=== PATIENT | male | born 1950 | race Caucasian/White ===

== ENCOUNTER 2016-11-23 10:57 | Emergency (ER) | payer MEDICARE, OTHER ==
[~2016-11-23] VITALS: Ht 167.6 cm; Wt 70.0 kg
[~2016-11-23 10:57] MED LIST: ASPI-664 PO; BUSP10TA2 PO; CYAN100080 PO; DIAZ10TA4 PO; DULO60CA6 PO; FERR325T82 PO; FOLI-49 PO; HYDR-3504 PO; MULT-761 PO; PREG50CA PO; PROC5TAB9 PO; PROCHLORPERAZINE PO; RANI150C11 PO; ROPI0.25 PO; SIMV20TA2 PO; TRAZ100T15 PO
[2016-11-23 11:00] VITALS: Ht 167.6 cm; Wt 70.0 kg
[2016-11-23] MEDS ORDERED: LORAZEPAM 1 MG TAB PO ONE (11:30)
[2016-11-23] MEDS ORDERED: OLANZAPINE (ODT) 5 MG TAB ODT ONE (12:00)
[2016-11-23 12:20] VITALS: BP 160/78; PULSE 66; RESP 18
--- NOTE | 2016-11-23 12:44 | ERD ---
ER Documentation Chief Complaint Date/Time DATE: 11/23/16 TIME: 12:42 Chief Complaint sent from facility for anxiety HPI Patient is a 66-year-old male with anxiety who presents with anxiety. He was brought in by ambulance. He says "uptight is a drama" and says that he is having a "panic attack". He also says "I am having anxiety". He says "just give me a shot". Upon review of old medical records the patient has multiple visits to the ER for various complaints. Review of the emergency department information exchange shows visits to 2 separate hospitals. ROS All systems reviewed and are negative except as per history of present illness. Medications Home Meds Reported Medications Prochlorperazine* (Prochlorperazine*) 5 Mg Tablet, 5 MG PO BID, TAB 06/20/16 Hydrocodone Bit-Acetaminophen (Hydrocodone-APAP) 10-325MG Tablet, 1 TAB PO DAILY 10/15/15 Diazepam* (Diazepam*) 10 Mg Tablet, 10 MG PO BID, TAB 10/15/15 Trazodone Hcl* (Trazodone Hcl*) 100 Mg Tablet, 100 MG PO HS 02/15/13 Simvastatin (Simvastatin) 20 Mg Tablet, 20 MG PO HS 02/15/13 Ropinirole Hcl* (Ropinirole Hcl*) 0.25 Mg Tablet, 0.25 MG PO 02/15/13 Ranitidine Hcl (Ranitidine Hcl) 150 Mg Capsule, 150 MG PO DAILY 02/15/13 [Prochlorperazine] No Conflict Check, 5 MG PO TID 02/15/13 Pregabalin* (Lyrica*) 50 Mg Capsule, 50 MG PO BID 02/15/13 Multivitamin (MULTI VITAMIN DAILY) 1 Each Tablet, 1 EACH PO DAILY 02/15/13 Folic Acid* (Folic Acid*) 1 Mg Tablet, 1 MG PO 02/15/13 Ferrous Sulfate (LATONIA-TIME) 325 Mg Tablet, 325 MG PO DAILY 02/15/13 Duloxetine Hcl* (Cymbalta*) 60 Mg Capsule.dr, 60 MG PO DAILY 02/15/13 Cyanocobalamin* (Vitamin B-12*) 1,000 Mcg Tablet.sa, 1000 MCG PO DAY 02/15/13 Buspirone Hcl* (Buspirone Hcl*) 10 Mg Tablet, 10 MG PO TID 02/15/13 Aspirin (Aspirin) 81 Mg Tablet.dr, 81 MG PO DAILY 02/15/13 Allergies Allergies: Coded Allergies: No Known Allergies (Verified Allergy, Unknown, 06/17/16) PMhx/Soc History of Surgery: Yes (spine fusion) Anesthesia Reaction: No Hx Neurological Disorder: No Hx Respiratory Disorders: No Hx Cardiac Disorders: Yes (OR, HTN, Hypercholesterol) Hx Psychiatric Problems: Yes (schizophrenia, bipolar) Hx Miscellaneous Medical Probl: Yes (CAD, bipolar) Hx Alcohol Use: No Hx Substance Use: No Hx Tobacco Use: No Smoking Status: Former smoker FmHx Family History: No diabetes Physical Exam Vitals Vital Signs Date Time Temp Pulse Resp B/P Pulse Ox O2 Delivery O2 Flow Rate FiO2 11/23/16 12:20 66 18 160/78 98 Room Air 11/23/16 11:00 97.8 76 18 168/74 98 Physical Exam Const: Anxious Head: Atraumatic Eyes: Normal Conjunctiva ENT: Normal External Ears, Nose and Mouth. Neck: Full range of motion..~ No meningismus. Resp: Clear to auscultation bilaterally Cardio: Regular rate and rhythm, no murmurs Abd: Soft, non tender, non distended. Normal bowel sounds Skin: No petechiae or rashes Back: No midline or flank tenderness Ext: No cyanosis, or edema Neur: Awake and alert Psych: Anxious but no suicidal or homicidal ideation Results 24 hrs Current Medications Medications (Trade) Dose Ordered Sig/Florencio Route PRN Reason Start Time Stop Time Status Last Admin Dose Admin Lorazepam (Ativan) 1 mg ONCE ONCE PO 11/23/16 11:30 11/23/16 11:31 DC 11/23/16 11:13 Olanzapine (Zyprexa Zydis) 5 mg ONCE ONCE ODT 11/23/16 12:00 11/23/16 12:01 DC 11/23/16 11:54 Procedures/MDM Patient is a 66-year-old male with anxiety who presents with anxiety. The patient was given Ativan and Zyprexa. He will be discharged back to his chronic nursing facility. At this point I believe outpatient management is appropriate. The patient can return sooner for any worsening symptoms. The patient understands the plan is okay for discharge at this time. I do not believe he requires further workup or admission to the hospital at this time. I do not believe he requires a 5150 hold for inpatient psychiatric care. Departure Diagnosis: Primary Impression: Anxiety Condition: Fair Patient Instructions: Panic Attack Referrals: SHAWN HILLIARD MD (PCP) Additional Instructions: Call your primary care doctor TOMORROW for an appointment during the next 1-2 days.See the doctor sooner or return here if your condition worsens before your appointment time. EMILIE DOVE MD November 23, 2016 12:44
== END 2016-11-23 12:25 | disposition home or self-care (01) ==
LOC: E/R 10:57
DX: F41.9 Anxiety disorder, unspecified (principal); I10 Essential (primary) hypertension; I25.10 Atherosclerotic heart disease of native coronary artery without angina pectoris; R40.2142 Coma scale, eyes open, spontaneous, at arrival to emergency department; R40.2252 Coma scale, best verbal response, oriented, at arrival to emergency department; R40.2362 Coma scale, best motor response, obeys commands, at arrival to emergency department; Z79.82 Long term (current) use of aspirin; Z87.891 Personal history of nicotine dependence
CPT/HCPCS: 99283

== ENCOUNTER 2016-11-30 11:38 | Emergency (ER) | payer MEDICARE ==
[~2016-11-30] VITALS: Ht 175.3 cm; Wt 80.0 kg
[2016-11-30 11:57] VITALS: Ht 175.3 cm; Wt 80.0 kg
[2016-11-30] MEDS ORDERED: clonAZEPAM 0.5 MG TAB PO ONE (12:00)
[2016-11-30 12:11] LABS: ADD SCAN DIFF NO
[2016-11-30 12:31] LABS: CHLORIDE 106 mmol/L (97-110); SODIUM 143 mmol/L (135-144)
[2016-11-30 12:32] LABS: POTASSIUM 4.9 mmol/L (3.5-5.1)
[2016-11-30 12:34] LABS: ALANINE AMINOTRANSFERASE 37 IU/L (13-69); ALBUMIN/GLOBULIN RATIO 0.81; ALKALINE PHOSPHATASE 87 IU/L (42-121); ANION GAP 20 (8-16); ASPARTATE AMINO TRANSFERASE 39 IU/L (15-46); BILIRUBIN,INDIRECT 0.5 mg/dl (0-1.1); BILIRUBIN,TOTAL 0.5 mg/dl (0.2-1.3); BLOOD UREA NITROGEN 33 mg/dl (7-20); CALCIUM 9.4 mg/dl (8.4-10.2); CARBON DIOXIDE 22 mmol/L (21-31); GLUCOSE 113 mg/dl (70-220); TOTAL PROTEIN 8.9 g/dl (6.1-8.1)
[2016-11-30 12:42] LABS: ACETAMINOPHEN < 10.0 ug/ml (10.0-30.0); ETHANOL < 10.0 mg/dl; SALICYLATE < 1.0 mg/dl (5.0-30.0)
[2016-11-30 13:13] LABS: BASOPHILS % 0.6 % (0.0-2.0); EOSINOPHILS # 0.1 10^3/ul (0.0-0.5); EOSINOPHILS % 2.6 % (0.0-7.0); HEMOGLOBIN 9.8 g/dl (14.0-18.0); LYMPHOCYTES # 0.6 10^3/ul (0.8-2.9); LYMPHOCYTES % 17.6 % (15.0-51.0); MEAN CORPUSCULAR HGB CONC 33.8 g/dl (32.0-37.0); MEAN CORPUSCULAR VOLUME 94.8 fl (82.0-101.0); MEAN PLATELET VOLUME 9.9 fl (7.4-10.4); MONOCYTE # 0.3 10^3/ul (0.3-0.9); MONOCYTES % 9.7 % (0.0-11.0); NEUTROPHIL # 2.4 10^3/ul (1.6-7.5); NEUTROPHILS % 69.2 % (39.0-77.0); PLATELET COUNT 108 10^3/UL (140-415); RED BLOOD COUNT 3.06 10^6/ul (4.70-6.10); RED CELL DISTRIBUTION WIDTH 14.4 % (11.5-14.5); WHITE BLOOD COUNT 3.4 10^3/ul (4.8-10.8)
--- NOTE | 2016-11-30 14:12 | ERA ---
ER Documentation Chief Complaint Date/Time DATE: 11/30/16 TIME: 14:09 Chief Complaint BIB RA FOR EVAL OF ANXIETY HPI Patient is a 66-year-old male with anxiety who presents with anxiety. He was brought in by ambulance. The nursing facility called because he was having anxious and says "I need Klonopin". I saw him personally on November 23 for the same complaint. He has severe anxiety. Upon review of old medical records the patient has multiple visits for similar type complaints. At this point it appears the nursing facility is unable to care for him. Please note the history and physical exam is limited as the patient is unable to talk about anything except his anxiety. ROS All systems reviewed and are negative except as per history of present illness. Medications Home Meds Reported Medications Prochlorperazine* (Prochlorperazine*) 5 Mg Tablet, 5 MG PO BID, TAB 06/20/16 Hydrocodone Bit-Acetaminophen (Hydrocodone-APAP) 10-325MG Tablet, 1 TAB PO DAILY 10/15/15 Diazepam* (Diazepam*) 10 Mg Tablet, 10 MG PO BID, TAB 10/15/15 Trazodone Hcl* (Trazodone Hcl*) 100 Mg Tablet, 100 MG PO HS 02/15/13 Simvastatin (Simvastatin) 20 Mg Tablet, 20 MG PO HS 02/15/13 Ropinirole Hcl* (Ropinirole Hcl*) 0.25 Mg Tablet, 0.25 MG PO 02/15/13 Ranitidine Hcl (Ranitidine Hcl) 150 Mg Capsule, 150 MG PO DAILY 02/15/13 [Prochlorperazine] No Conflict Check, 5 MG PO TID 02/15/13 Pregabalin* (Lyrica*) 50 Mg Capsule, 50 MG PO BID 02/15/13 Multivitamin (MULTI VITAMIN DAILY) 1 Each Tablet, 1 EACH PO DAILY 02/15/13 Folic Acid* (Folic Acid*) 1 Mg Tablet, 1 MG PO 02/15/13 Ferrous Sulfate (LATONIA-TIME) 325 Mg Tablet, 325 MG PO DAILY 02/15/13 Duloxetine Hcl* (Cymbalta*) 60 Mg Capsule.dr, 60 MG PO DAILY 02/15/13 Cyanocobalamin* (Vitamin B-12*) 1,000 Mcg Tablet.sa, 1000 MCG PO DAY 02/15/13 Buspirone Hcl* (Buspirone Hcl*) 10 Mg Tablet, 10 MG PO TID 02/15/13 Aspirin (Aspirin) 81 Mg Tablet.dr, 81 MG PO DAILY 02/15/13 Allergies Allergies: Coded Allergies: No Known Allergies (Verified Allergy, Unknown, 06/17/16) PMhx/Soc History of Surgery: Yes (spine fusion) Anesthesia Reaction: No Hx Neurological Disorder: No Hx Respiratory Disorders: No Hx Cardiac Disorders: Yes (ND, HTN, Hypercholesterol) Hx Psychiatric Problems: Yes (schizophrenia, bipolar) Hx Miscellaneous Medical Probl: Yes (CAD, bipolar) Hx Alcohol Use: No Hx Substance Use: No Hx Tobacco Use: No Smoking Status: Unknown if ever smoked FmHx Unable to obtain Physical Exam Vitals Vital Signs Date Time Temp Pulse Resp B/P Pulse Ox O2 Delivery O2 Flow Rate FiO2 11/30/16 11:57 97.9 80 19 160/59 100 Physical Exam Const: Anxious Head: Atraumatic Eyes: Normal Conjunctiva ENT: Normal External Ears, Nose and Mouth. Neck: Full range of motion..~ No meningismus. Resp: Clear to auscultation bilaterally Cardio: Regular rate and rhythm, no murmurs Abd: Soft, non tender, non distended. Normal bowel sounds Skin: Pale Back: No midline or flank tenderness Ext: No cyanosis, or edema Neur: Awake but extremely anxious Psych: Extreme anxiety without suicidal or homicidal ideation Result Diagram: 11/30/16 1300 11/30/16 1154 Results 24 hrs Laboratory Tests Test 11/30/16 11:54 11/30/16 13:00 Sodium Level 143mmol/L Potassium Level 4.9mmol/L Chloride Level 106mmol/L Carbon Dioxide Level 22mmol/L Anion Gap 20 Blood Urea Nitrogen 33mg/dl Creatinine 2.10mg/dl Glucose Level 113mg/dl Calcium Level 9.4mg/dl Total Bilirubin 0.5mg/dl Direct Bilirubin 0.00mg/dl Indirect Bilirubin 0.5mg/dl Aspartate Amino Transf (AST/SGOT) 39IU/L Alanine Aminotransferase (ALT/SGPT) 37IU/L Alkaline Phosphatase 87IU/L Total Protein 8.9g/dl Albumin 4.0g/dl Globulin 4.90g/dl Albumin/Globulin Ratio 0.81 Salicylates Level < 1.0mg/dl Acetaminophen Level < 10.0ug/ml Ethyl Alcohol Level < 10.0mg/dl White Blood Count 3.410^3/ul Red Blood Count 3.0610^6/ul Hemoglobin 9.8g/dl Hematocrit 29.0% Mean Corpuscular Volume 94.8fl Mean Corpuscular Hemoglobin 32.0pg Mean Corpuscular Hemoglobin Concent 33.8g/dl Red Cell Distribution Width 14.4% Platelet Count 69227^3/UL Mean Platelet Volume 9.9fl Neutrophils % 69.2% Lymphocytes % 17.6% Monocytes % 9.7% Eosinophils % 2.6% Basophils % 0.6% Nucleated Red Blood Cells % 0.0/100WBC Neutrophils # 2.410^3/ul Lymphocytes # 0.610^3/ul Monocytes # 0.310^3/ul Eosinophils # 0.110^3/ul Basophils # 0.010^3/ul Nucleated Red Blood Cells # 0.010^3/ul Current Medications Medications (Trade) Dose Ordered Sig/Florencio Route PRN Reason Start Time Stop Time Status Last Admin Dose Admin Clonazepam (Klonopin) 1 mg ONCE ONCE PO 11/30/16 12:00 11/30/16 12:01 DC 11/30/16 12:14 Procedures/MDM Patient is a 66-year-old male with anxiety who presents with anxiety. At this point I believe he has the grave disability. On the previous visit on November 23 I was able to discharge him back to the nursing facility but they are unable to care for him and I do believe he requires higher level of care for psychiatric treatment. He will likely need his medications adjusted. He was given Klonopin and Ativan in the emergency department. He has been accepted to [facility] for transfer for higher level of care psychiatric transfer. He is medically clear. Departure Diagnosis: Primary Impression: Grave disability Additional Impression: Anxiety Condition: EMILIE Eden MD November 30, 2016 14:12
[2016-11-30] MEDS ORDERED: LORAZEPAM 1 MG TAB PO ONE (14:30)
[2016-11-30 15:55] LABS: ADD UMIC NO; URINE BILIRUBIN (Dip) NEGATIVE (NEGATIVE); URINE BLOOD (Dip) NEGATIVE (NEGATIVE); URINE COLOR LT. YELLOW (YELLOW); URINE GLUCOSE (Dip) NEGATIVE (NEGATIVE); URINE KETONES (Dip) NEGATIVE (NEGATIVE); URINE LEUKOCYTE ESTERASE (Dip) NEGATIVE (NEGATIVE); URINE NITRITE (Dip) NEGATIVE (NEGATIVE); URINE TOTAL PROTEIN (Dip) NEGATIVE (NEGATIVE); URINE UROBILINOGEN (Dip) 0.2 E.U./dL (0.1-1.0)
[2016-11-30 16:18] LABS: BENZODIAZEPINES Negative (NEGATIVE)
[2016-11-30 16:20] LABS: BARBITURATES Negative (NEGATIVE); CANNABINOIDS Negative (NEGATIVE); COCAINE Negative (NEGATIVE); OPIATES Negative (NEGATIVE)
== END 2016-11-30 17:29 ==
LOC: E/R 11:38
DX: F79 Unspecified intellectual disabilities (principal); I25.10 Atherosclerotic heart disease of native coronary artery without angina pectoris; I10 Essential (primary) hypertension; R40.2142 Coma scale, eyes open, spontaneous, at arrival to emergency department; R40.2252 Coma scale, best verbal response, oriented, at arrival to emergency department; R40.2362 Coma scale, best motor response, obeys commands, at arrival to emergency department; Z79.82 Long term (current) use of aspirin
CPT/HCPCS: 36415; 80053; 80306; 80307; 81003; 85025

== ENCOUNTER 2017-01-17 16:00 | Inpatient (IN) | payer MEDICARE, MEDICAID ==
[~2017-01-17] VITALS: Ht 177.8 cm; Wt 69.0 kg
[~2017-01-17 16:00] MED LIST changes: -PROCHLORPERAZINE PO
[2017-01-17] MEDS ORDERED: CEFTRIAXONE 1 GM/50 ML (PMX) 50 ML IVPB STA (16:23)
[2017-01-17] MEDS ORDERED: SODIUM CHLORIDE 0.9% 1L BAG IV* STA (16:23)
[2017-01-17] MEDS ORDERED: VANCOMYCIN 1 GM (PMX) 250 ML IVPB ONE (16:30)
[2017-01-17] MEDS ORDERED: morphine 10 MG INJ IV ONE (16:30)
[2017-01-17 16:47] LABS: ADD SCAN DIFF NO
[2017-01-17 16:53] LABS: ABNORMAL IP MESSAGE 1; BASOPHILS % 0.2 % (0.0-2.0); EOSINOPHILS % 0.1 % (0.0-7.0); HEMATOCRIT 32.3 % (42.0-52.0); LYMPHOCYTES # 0.4 10^3/ul (0.8-2.9); LYMPHOCYTES % 3.1 % (15.0-51.0); MEAN CORPUSCULAR HEMOGLOBIN 32.3 pg (29.0-33.0); MEAN CORPUSCULAR HGB CONC 34.1 g/dl (32.0-37.0); MEAN CORPUSCULAR VOLUME 94.7 fl (82.0-101.0); MEAN PLATELET VOLUME 11.4 fl (7.4-10.4); MONOCYTE # 0.9 10^3/ul (0.3-0.9); MONOCYTES % 7.5 % (0.0-11.0); NEUTROPHIL # 10.9 10^3/ul (1.6-7.5); NEUTROPHILS % 88.6 % (39.0-77.0); PLATELET COUNT 255 10^3/UL (140-415); RED BLOOD COUNT 3.41 10^6/ul (4.70-6.10); RED CELL DISTRIBUTION WIDTH 14.6 % (11.5-14.5); WHITE BLOOD COUNT 12.3 10^3/ul (4.8-10.8)
--- NOTE | 2017-01-17 17:03 | ERA ---
ER Documentation Chief Complaint Date/Time DATE: 01/17/17 TIME: 16:48 Chief Complaint sent by pmd for cellulitis of the buttocks HPI This 66-year-old male presents for an infected wound on his buttock. He was sent from his primary care doctor for likely admission. He has significant pain at the site. States that he had a hip fracture sometime ago and since he is started to develop some rectal pain as well. He has felt chills at home and subjective fevers. It is very painful for him have bowel movements. He was sent from the office of Dr. Blaine Shin ROS All systems reviewed and are negative except as per history of present illness. Medications Home Meds Reported Medications Pregabalin* (Lyrica*) 50 Mg Capsule, 50 MG PO BID, CAP 01/17/17 Hydrocodone/Acetaminophen ([place] 10-325 Tablet) 1 Each Tablet, 1 EACH PO BID, TAB 01/17/17 Methadone Hcl* (Methadone*) 10 Mg Tab, 10 MG PO TID, TAB 01/17/17 Ropinirole Hcl* (Ropinirole Hcl*) 0.25 Mg Tablet, 0.25 MG PO HS, TAB 01/17/17 Tamsulosin Hcl* (Tamsulosin Hcl*) 0.4 Mg Cap.er.24h, 0.4 MG PO HS, CAP 01/17/17 Simvastatin* (Zocor*) 10 Mg Tablet, 10 MG PO QHS, #30 TAB 01/17/17 Multivitamins* (Theragran*) 1 Tab Tab, 1 TAB PO DAILY, TAB 01/17/17 Folic Acid* (Folic Acid*) 1 Mg Tablet, 1 MG PO DAILY, TAB 01/17/17 Ferrous Sulfate* (Ferrous Sulfate*) 325 Mg Tabec, 325 MG PO DAILY, TAB 01/17/17 Famotidine* (Famotidine*) 20 Mg Tablet, 20 MG PO DAILY, #30 TAB 01/17/17 Buspirone Hcl* (Buspirone Hcl*) 10 Mg Tab, 10 MG PO TID, TAB 01/17/17 Duloxetine Hcl* (Duloxetine Hcl*) 60 Mg Capsule.dr, 120 MG PO DAILY, #30 CAP 01/17/17 Clonazepam* (Clonazepam*) 1 Mg Tablet, 1 MG PO BID Y for ANXIETY, TAB 01/17/17 Aripiprazole* (Abilify*) 5 Mg Tab, 5 MG PO DAILY, #30 TAB 01/17/17 Aspirin* (Aspirin* EC) 81 Mg Tablet.dr, 81 MG PO DAILY, TAB 01/17/17 Acetaminophen* (Acetaminophen*) 650 Mg Tablet, 650 MG PO Q8H Y for FOR MILD PAIN ,FEVER ,HEDACHE, #30 TAB 01/17/17 Discontinued Reported Medications Prochlorperazine* (Prochlorperazine*) 5 Mg Tablet, 5 MG PO BID, TAB 06/20/16 Hydrocodone Bit-Acetaminophen (Hydrocodone-APAP) 10-325MG Tablet, 1 TAB PO DAILY 10/15/15 Diazepam* (Diazepam*) 10 Mg Tablet, 10 MG PO BID, TAB 10/15/15 Trazodone Hcl* (Trazodone Hcl*) 100 Mg Tablet, 100 MG PO HS 02/15/13 Simvastatin (Simvastatin) 20 Mg Tablet, 20 MG PO HS 02/15/13 Ropinirole Hcl* (Ropinirole Hcl*) 0.25 Mg Tablet, 0.25 MG PO 02/15/13 Ranitidine Hcl (Ranitidine Hcl) 150 Mg Capsule, 150 MG PO DAILY 02/15/13 Pregabalin* (Lyrica*) 50 Mg Capsule, 50 MG PO BID 02/15/13 Multivitamin (MULTI VITAMIN DAILY) 1 Each Tablet, 1 EACH PO DAILY 02/15/13 Folic Acid* (Folic Acid*) 1 Mg Tablet, 1 MG PO 02/15/13 Ferrous Sulfate (LATONIA-TIME) 325 Mg Tablet, 325 MG PO DAILY 02/15/13 Duloxetine Hcl* (Cymbalta*) 60 Mg Capsule.dr, 60 MG PO DAILY 02/15/13 Cyanocobalamin* (Vitamin B-12*) 1,000 Mcg Tablet.sa, 1000 MCG PO DAY 02/15/13 Buspirone Hcl* (Buspirone Hcl*) 10 Mg Tablet, 10 MG PO TID 02/15/13 Aspirin (Aspirin) 81 Mg Tablet.dr, 81 MG PO DAILY 02/15/13 Allergies Allergies: Coded Allergies: No Known Allergies (Verified Allergy, Unknown, 01/17/17) PMhx/Soc History of Surgery: Yes (spine fusion) Anesthesia Reaction: No Hx Neurological Disorder: No Hx Respiratory Disorders: No Hx Cardiac Disorders: Yes (IA, HTN, Hypercholesterol) Hx Psychiatric Problems: Yes (schizophrenia, bipolar) Hx Miscellaneous Medical Probl: Yes (CAD, bipolar) Hx Alcohol Use: No Hx Substance Use: No Hx Tobacco Use: No Physical Exam Vitals Vital Signs Date Time Temp Pulse Resp B/P Pulse Ox O2 Delivery O2 Flow Rate FiO2 01/17/17 19:05 97 25 121/50 100 Room Air 01/17/17 16:03 99.5 118 24 99 Physical Exam Const: [] Moderate distress, very uncomfortable, in pain Head: Atraumatic Eyes: Normal Conjunctiva ENT: Normal External Ears, Nose and Mouth. Neck: Full range of motion..~ No meningismus. Resp: Clear to auscultation bilaterally, slightly increased respiratory rate Cardio: Regular tachycardia, no murmurs Abd: Soft, non tender, non distended. Normal bowel sounds Skin: No petechiae or rashes Back: No midline or flank tenderness, buttock with stage II ulceration on both sides of buttocks surrounding the rectum, significant surrounding cellulitis with positive calor. No obvious abscess. Ext: No cyanosis, or edema Neur: Awake and alert and oriented 3, no focal deficits Psych: Normal Mood and Affect Result Diagram: 01/17/17 1630 01/17/17 1740 Results 24 hrs Laboratory Tests Test 01/17/17 16:30 01/17/17 17:40 01/17/17 18:00 01/17/17 19:50 White Blood Count 12.310^3/ul Red Blood Count 3.4110^6/ul Hemoglobin 11.0g/dl Hematocrit 32.3% Mean Corpuscular Volume 94.7fl Mean Corpuscular Hemoglobin 32.3pg Mean Corpuscular Hemoglobin Concent 34.1g/dl Red Cell Distribution Width 14.6% Platelet Count 53903^3/UL Mean Platelet Volume 11.4fl Neutrophils % 88.6% Lymphocytes % 3.1% Monocytes % 7.5% Eosinophils % 0.1% Basophils % 0.2% Nucleated Red Blood Cells % 0.0/100WBC Neutrophils # 10.910^3/ul Lymphocytes # 0.410^3/ul Monocytes # 0.910^3/ul Eosinophils # 0.010^3/ul Basophils # 0.010^3/ul Nucleated Red Blood Cells # 0.010^3/ul Prothrombin Time 16.1Sec Prothrombin Time Ratio 1.3 INR International Normalized Ratio 1.28 Activated Partial Thromboplast Time 42.3Sec Sodium Level 126mmol/L Potassium Level 3.4mmol/L Chloride Level 103mmol/L Carbon Dioxide Level 16mmol/L Anion Gap 10 Blood Urea Nitrogen 39mg/dl Creatinine 2.62mg/dl Glucose Level 103mg/dl Lactic Acid Level 1.4mmol/L 1.7mmol/L Calcium Level 7.6mg/dl Total Bilirubin 0.4mg/dl Direct Bilirubin 0.00mg/dl Indirect Bilirubin 0.4mg/dl Aspartate Amino Transf (AST/SGOT) 60IU/L Alanine Aminotransferase (ALT/SGPT) 43IU/L Alkaline Phosphatase 50IU/L Troponin I 0.020ng/ml Total Protein 5.9g/dl Albumin 3.0g/dl Globulin 2.90g/dl Albumin/Globulin Ratio 1.03 Urine Color YELLOW Urine Clarity SLIGHTLY CLOUDY Urine pH 6.0 Urine Specific [place] 1.004 Urine Ketones NEGATIVEmg/dL Urine Nitrite NEGATIVEmg/dL Urine Bilirubin NEGATIVEmg/dL Urine Urobilinogen NEGATIVEmg/dL Urine Leukocyte Esterase 2+Bladimir/ul Urine Microscopic RBC 2/HPF Urine Microscopic WBC 7/HPF Urine Bacteria FEW/HPF Urine Hemoglobin 2+mg/dL Urine Glucose NEGATIVEmg/dL Urine Total Protein NEGATIVEmg/dl Current Medications Medications (Trade) Dose Ordered Sig/Florencio Route PRN Reason Start Time Stop Time Status Last Admin Dose Admin Sodium Chloride 2110 ml 2,110 ml BOLUS OVER 2 HOURS STAT IV* 01/17/17 16:23 01/17/17 16:27 DC 01/17/17 17:04 Vancomycin HCl 250 ml @ 125 mls/hr ONCE ONCE IVPB 01/17/17 16:30 01/17/17 18:29 DC 01/17/17 17:59 Ceftriaxone Sodium (Rocephin) 50 ml @ 100 mls/hr ONCE STAT IVPB 01/17/17 16:23 01/17/17 16:52 DC 01/17/17 17:04 Morphine Sulfate (morphine) 6 mg ONCE ONCE IV 01/17/17 16:30 01/17/17 16:32 DC 01/17/17 17:03 Hydromorphone HCl (Dilaudid) 1 mg ONCE STAT IV 01/17/17 17:43 01/17/17 17:45 DC 01/17/17 18:00 Ondansetron HCl (Zofran Inj) 4 mg ER BRIDGE PRN IV NAUSEA AND/OR VOMITING 01/17/17 21:30 01/18/17 21:29 Acetaminophen (Tylenol Tab) 650 mg ER BRIDGE PRN PO MILD PAIN/FEVER 01/17/17 21:30 01/18/17 21:29 Procedures/MDM Bilateral buttock infection surrounding the rectum with sepsis. Patient was in significant pain on arrival. He was given 6 mg of morphine and 1 mg of Dilaudid to control his pain. Is also given 30 cc/kg of IV fluid as well as vancomycin and cefepime. He was made much more comfortable. Full. Initially tachycardic his heart rate did decrease with IV fluids. Also has tachypneic with clear chest x-ray. Creatinine is higher than last time with likely acute kidney injury. This is likely secondary to his cellulitis. Spoke with Dr. Shin who is not feeling well and prefers that the patient be admitted to panel. I spoke with Dr. Michael will be admitting the patient to telemetry. EKG interpretation: Normal sinus rhythm rate of 95, normal axis, no ST or T- wave changes concerning for acute ischemia, QTC of 469. Single Q-wave in V4 case monitor interpretation: Sinus tachycardia followed by normal sinus rhythm without arrhythmia Chest x-ray interpretation: I see no acute process. I see no vitamin Carrera, no pneumothorax, no infiltrates, no fractures Pelvis CT interpretation: Ulcerations with infection continuing the subcutaneous tissue without abscess or osteomyelitis. Multilevel degenerative disc disease with prior spinal surgery. Critical care time 37 minutes: Includes management of sepsis and patient with severe pain, careful fluid administration, early antibiotic administration, multiple visits the patient's bedside to reassess his status, chart review, discussion with primary care physician, patient, admitting doctor. This does not include any billable procedures Departure Diagnosis: Primary Impression: Sepsis due to cellulitis Additional Impressions: Cellulitis of buttock Stage II decubitus ulcer Acute kidney injury UTI (urinary tract infection) Hyponatremia Condition: Serious YARI PRICE DO Jan 17, 2017 16:59
[2017-01-17] MEDS ORDERED: HYDROmorphONE 1 MG/ML SYG IV STA (17:43)
--- NOTE | 2017-01-17 17:47 | RADRPT ---
PROCEDURE: Chest x-ray CLINICAL INDICATION: Cellulitis TECHNIQUE: Chest single view COMPARISON: 06/17/2016 FINDINGS: The heart is normal in size. The pulmonary vessels are normal in caliber. The lungs are clear. Th e costophrenic angles are sharp. The visualized bony thorax is unremarkable. IMPRESSION: No acute cardiopulmonary disease. Interval clearing of previously noted right lower lobe pneumonia RPTAT: HH .Eric Campos MD, MD Date Time Electronically viewed and signed by .Eric Campos MD, on 01/17/2017 17:46 .W/
[2017-01-17] MEDS ORDERED: ASPI-664 PO (17:56)
[2017-01-17] MEDS ORDERED: ACET-2047 PO (17:56)
[2017-01-17] MEDS ORDERED: CLON1TAB3 PO (17:57)
[2017-01-17] MEDS ORDERED: ARIP5TAB7 PO (17:57)
[2017-01-17] MEDS ORDERED: DULO60CA59 PO (17:58)
[2017-01-17] MEDS ORDERED: FAMO20TA18 PO (17:59)
[2017-01-17] MEDS ORDERED: BUSP10TA2 PO (17:59)
[2017-01-17] MEDS ORDERED: FER325 PO (18:00)
[2017-01-17] MEDS ORDERED: MULTI PO (18:00)
[2017-01-17] MEDS ORDERED: FOLI-49 PO (18:00)
[2017-01-17] MEDS ORDERED: TAMS0.4C2 PO (18:01)
[2017-01-17] MEDS ORDERED: ROPI0.25 PO (18:01)
[2017-01-17] MEDS ORDERED: SIMV10TA PO (18:01)
[2017-01-17] MEDS ORDERED: METH10TA2 PO (18:02)
[2017-01-17 18:04] LABS: INR 1.28; PARTIAL THROMBOPLASTIN TIME 42.3 Sec (25.0-35.0); PROTIME 16.1 Sec (12.2-14.2); PT RATIO 1.3
[2017-01-17] MEDS ORDERED: HYDR-902 PO (18:05)
[2017-01-17] MEDS ORDERED: PREG50CA PO (18:06)
[2017-01-17 18:09] LABS: ALBUMIN/GLOBULIN RATIO 1.03; BILIRUBIN,INDIRECT 0.4 mg/dl (0-1.1); BILIRUBIN,TOTAL 0.4 mg/dl (0.2-1.3); CALCIUM 7.6 mg/dl (8.4-10.2); CREATININE 2.62 mg/dl (0.61-1.24); POTASSIUM 3.4 mmol/L (3.5-5.1); TOTAL PROTEIN 5.9 g/dl (6.1-8.1)
[2017-01-17 18:18] LABS: TROPONIN-I 0.02 ng/ml (0.00-0.12)
[2017-01-17 18:26] LABS: ADD UMIC YES; UR ASCORBIC ACID NEGATIVE (NEGATIVE); UR BACTERIA FEW /HPF (NONE SEEN); UR BILIRUBIN (Dip) NEGATIVE (NEGATIVE); UR BLOOD (Dip) 2+ mg/dL (NEGATIVE); UR CLARITY SLIGHTLY CLOUDY (CLEAR); UR COLOR YELLOW (YELLOW); UR GLUCOSE (Dip) NEGATIVE (NEGATIVE); UR KETONES (Dip) NEGATIVE (NEGATIVE); UR LEUKOCYTE ESTERASE (Dip) 2+ Leu/ul (NEGATIVE); UR NITRITE (Dip) NEGATIVE (NEGATIVE); UR RBC 2 /HPF (0-5); UR SPECIFIC GRAVITY (Dip) 1.004 (1.003-1.030); UR TOTAL PROTEIN (Dip) NEGATIVE (NEGATIVE); UR UROBILINOGEN (Dip) NEGATIVE (NEGATIVE)
--- NOTE | 2017-01-17 19:02 | RADRPT ---
PROCEDURE: CT scan of the pelvis without IV contrast. CLINICAL INDICATION: 66-year-old male with perirectal ulcerations and cellulitis. TECHNIQUE: Thin section axial, coronal and sagittal images were performed through the abdomen and pelvis without contrast. Radiation Dose: CTDI: 15.4 and DLP: 555 One or more of the following dose reduction techniques were used: - Automated exposure control. - Adjustment of the mA and/or kV according to patient size. Use of iterative reconstruction technique. COMPARISON: Chest x-ray 08/12/2016 06:18 a.m. FINDINGS: Soft tissues: On the lower gluteal cleft there is subcutaneous emphysema associated with a skin ulce ration was extends to the dorsal surface of the coccyx. There is no radiographic evidence of an abs cess or osteomyelitis. There is a spina bifida occulta of the lower sacrum. The sacrum is intact. Gastrointestinal: The colon is unremarkable. There are fluid-filled mildly dilated small bowel loop s. Urinary bladder : Normal. There is a 3.7 cm benign subcapsular cyst off of the lateral lower third o f the right kidney. There is a 2.7 cm benign cyst off of the ventral medial wall of the right kidne y. There is a 2.1 cm benign cyst off the dorsal inferior pole of the right kidney. There is a 6 mm subcapsular lesion of high attenuation in the lower middle third of the right kidney. There is an adjacent 2 mm subcapsular lesion of high attenuation adjacent to a slightly larger subcapsular cyst measuring 9 mm in size along the dorsal lower middle third of the right kidney. There are additiona l subcapsular lesions in the ventral upper portion of the lower third of the right kidney measuring 8 mm and 5 mm in size of increased attenuation. Hemorrhagic cyst or proteinaceous cysts are most li rhoda. The lesions are not excluded at the site of the considered unlikely. An ultrasound is recomm ended for characterization. Lymph nodes: Normal. Reproductive system and pelvis : The seminal vesicles and prostate gland are normal. Bony elements: There is mild dorsal disk space narrowing at L4-5 with degenerative changes in the ar ticular facets. The left L4-5 articular facet joint space is not widened. A laminectomy was performed at L5 with evidence of a posterior spinal fusion from L4-S1. There is d isk space narrowing at L5-S1. There are degenerative changes in the articular facets of L5-S1. The re are bilateral bony nerve root canal stenosis at L5-S1. There is of the regions 75 compression scr ew no. There are internal fixation screws stabilizing an old healed fracture to the neck of the pro ximal left femur. There are degenerative changes in both hips. The right femur is intact. The inn ominate bone is intact. Vasculature: There are vascular calcifications in the abdominal aorta, common iliac arteries, email marketing intern al and external iliac and common femoral arteries. No aneurysm or stenosis is identified. IMPRESSION: 1. There is cellulitis surrounding an ulceration which extends into the subcutaneous fat abutting t he dorsal surface of the coccyx without evidence of an associated subcutaneous abscess or osteomyeli tis. 2. Old healed internally fixated fracture to the neck of the proximal left femur. 3. Posterior spinal fusion from L4-S1 with evidence of bilateral L5 laminectomy. 4. Severe disk space narrowing at L5-S1 with bilateral bony nerve root canal stenosis and bilateral degenerative facet arthropathy at L5-S1. 5. Atherosclerotic vascular disease. 6. There are multiple cysts identified involving both kidneys. Some smaller subcapsular lesions wi th increased attenuation seen in the lower half of the right kidney are likely cysts the contain pro teinaceous material or hemorrhage. These are not fully characterize by CT and ultrasound is recomme nded to exclude any possibility of solid lesions. RPTAT:AAJJ Physician Sonny Date Time Electronically viewed and signed by Physician Sonny on 01/17/2017 19:01 PILAR/
[2017-01-17] MEDS ORDERED: ACETAMINOPHEN 325 MG TAB PO PRN (21:30)
[2017-01-17] MEDS ORDERED: ONDANSETRON 4 MG INJ IV PRN (21:30)
[2017-01-17] MEDS: HYDROmorphONE 1 MG/ML SYG IV PRN (21:57)
[2017-01-17 22:39] VITALS: PULSE 90
[2017-01-17 23:02] VITALS: BP 121/74; PULSE 84; RESP 20; Ht 177.8 cm; Wt 69.0 kg
[2017-01-17 23:17] VITALS: BP 121/74; RESP 18
[2017-01-17] MEDS ORDERED: RESPERIDOL PO (23:49)
--- NOTE | 2017-01-17 23:58 | HP ---
Date/Time of Note Date/Time of Note DATE: 01/17/17 TIME: 23:57 Assessment/Plan VTE Prophylaxis VTE Prophylaxis Intervention: SCD's Assessment/Plan Chief Complaint/Hosp Course This is a 66-year-old male being admitted to the telemetry floor for: #1 Cellulitis and ulceration of the buttocks region: CT scan does not show any signs of abscess formation or ostium mellitus. Patient is visibly in distress secondary to his pain. At the current time we will treat with IV antibiotics vancomycin. Will consult infectious disease for further antibiotic management. Will consult wound care. At the current time secondary to patient's pain will treat with IV narcotic medications at this time. Patient may need surgical debridement however will await wound care evaluation. #2 urinary tract infection: At the current time will treat with ceftriaxone 1 g every 24 hours. Patient at the current time does not report incontinence however secondary to his debilitated state is very likely the patient does have poor hygiene. #3 mental health/possible schizophrenia: At the current time we will continue patient's home medications. #4 renal cysts: It was recommended based on CT scan for further evaluation. Will order renal ultrasound bilaterally. #5 chronic pain: Back and hip surgeries patient has history of which likely resulted in patients pain as well as difficulty ambulating. He does use a walker. Patient does have methadone on his med rec. Will attempt to obtain what he receives his methadone from from his outpatient records and then restart medication as indicated. #6 DVT and GI prophylaxis: SCD, Protonix Further treatment strategy will be implemented as per the clinical course Problems: HPI/ROS Admit Date/Time Admit Date/Time Jan 17, 2017 at 21:06 Hx of Present Illness Chief complaint: Buttock wound This 66-year-old male presents for an infected wound on his buttock. He was sent from his primary care doctor. He has significant pain at the site. States that he had a hip fracture sometime ago and since he is started to develop some rectal pain as well. He has felt chills at home and subjective fevers. It is very painful for him have bowel movements. Patient states that he started noticing the wound approximately 1 month ago he denies any fevers. He does state that sitting down on his buttock is painful. Allergies: NKDA Medications: See MARIBELL DOWD Const: As per HPI Eyes : No pain discharge or redness or change in visual acuity ENT: No pain, sore throat, congestion, congestion, dysphagia or discharge Respiratory: No shortness of breath, cough, sputum, wheezing, or pleuritic pain Cardiovascular: No chest pain, palpitation, PND, or edema GI : no change in appetite, abdominal pain, nausea, vomiting, diarrhea, constipation, or change in the color his stool Genitourinary: No dysuria, hematuria, flank pain , discharge or CVA tenderness Musculoskeletal: No joint pain, back pain, neck pain, restricted range of motion in neck or joints Skin: As per HPI Neuro: No headache, dizziness, syncope, seizure, focal weakness Endocrine: No polyuria, polydipsia, temperature intolerance Psych: No hallucination, depression, anxiety or suicidal ideation PMH/Family/Social Past Medical History Anxiety, chronic kidney disease, possible schizophrenia, coronary heart disease Above information was obtained from previous hospital admission records. Based on his previous records patient is reported to be possibly noncompliant with his medications Past Surgical History Lumbosacral surgery, left hip surgery Past Surgical Hx: cholecystectomy Family History Significant Family History: no pertinent family hx Social History Alcohol Use: none Smoking Status: Former smoker Drug Use: none Exam/Review of Systems Vital Signs Vitals Vital Signs Date Time Temp Pulse Resp B/P Pulse Ox O2 Delivery O2 Flow Rate FiO2 01/17/17 23:17 98.1 84 18 121/74 97 01/17/17 23:02 Room Air Exam Exam General: Patient is laying in bed in moderate distress from pain from his infected buttock wound HEENT: Atraumatic, normocephalic. The pupils are equal, round and reactive. Extraocular motor are intact Neck: Supple with full range of motion. No rigidity or meningismus Chest: Nontender Lungs: Clear to auscultation bilaterally no crackles rales or wheezing Heart: Normal S1-S2, Regular rhythm and rate. No murmur, S3, or S4 Abdomen: Soft , nontender, nondistended , bowel sounds are present. No guarding no rebound tenderness , No masses or organomegaly. No costovertebral temporal angle mass Extremities: Normal to inspection, no edema no cyanosis Neurologic: Normal mental status, speech normal, cranial nerves II through XII are intact, motor and sensory are intact, no focal weakness Skin: Skin excoriations of the inner buttocks bilaterally, rbuttock with stage II ulceration on both sides of buttocks surrounding the rectum, significant surrounding cellulitis with positive calor. No obvious abscess. Additional Comments PROCEDURE: CT scan of the pelvis without IV contrast. CLINICAL INDICATION: 66-year-old male with perirectal ulcerations and cellulitis. TECHNIQUE: Thin section axial, coronal and sagittal images were performed through the abdomen and pelvis without contrast. Radiation Dose: CTDI: 15.4 and DLP: 555 One or more of the following dose reduction techniques were used: - Automated exposure control. - Adjustment of the mA and/or kV according to patient size. Use of iterative reconstruction technique. COMPARISON: Chest x-ray 08/12/2016 06:18 a.m. FINDINGS: Soft tissues: On the lower gluteal cleft there is subcutaneous emphysema associated with a skin ulceration was extends to the dorsal surface of the coccyx. There is no radiographic evidence of an abscess or osteomyelitis. There is a spina bifida occulta of the lower sacrum. The sacrum is intact. Gastrointestinal: The colon is unremarkable. There are fluid-filled mildly dilated small bowel loops. Urinary bladder : Normal. There is a 3.7 cm benign subcapsular cyst off of the lateral lower third of the right kidney. There is a 2.7 cm benign cyst off of the ventral medial wall of the right kidney. There is a 2.1 cm benign cyst off the dorsal inferior pole of the right kidney. There is a 6 mm subcapsular lesion of high attenuation in the lower middle third of the right kidney. There is an adjacent 2 mm subcapsular lesion of high attenuation adjacent to a slightly larger subcapsular cyst measuring 9 mm in size along the dorsal lower middle third of the right kidney. There are additional subcapsular lesions in the ventral upper portion of the lower third of the right kidney measuring 8 mm and 5 mm in size of increased attenuation. Hemorrhagic cyst or proteinaceous cysts are most likely. The lesions are not excluded at the site of the considered unlikely. An ultrasound is recommended for characterization. Lymph nodes: Normal. Reproductive system and pelvis : The seminal vesicles and prostate gland are normal. Bony elements: There is mild dorsal disk space narrowing at L4-5 with degenerative changes in the articular facets. The left L4-5 articular facet joint space is not widened. A laminectomy was performed at L5 with evidence of a posterior spinal fusion from L4-S1. There is disk space narrowing at L5-S1. There are degenerative changes in the articular facets of L5-S1. There are bilateral bony nerve root canal stenosis at L5-S1. There is of the regions 75 compression screw no. There are internal fixation screws stabilizing an old healed fracture to the neck of the proximal left femur. There are degenerative changes in both hips. The right femur is intact. The innominate bone is intact. Vasculature: There are vascular calcifications in the abdominal aorta, common iliac arteries, internal and external iliac and common femoral arteries. No aneurysm or stenosis is identified. IMPRESSION: 1. There is cellulitis surrounding an ulceration which extends into the subcutaneous fat abutting the dorsal surface of the coccyx without evidence of an associated subcutaneous abscess or osteomyelitis. 2. Old healed internally fixated fracture to the neck of the proximal left femur. 3. Posterior spinal fusion from L4-S1 with evidence of bilateral L5 laminectomy. 4. Severe disk space narrowing at L5-S1 with bilateral bony nerve root canal stenosis and bilateral degenerative facet arthropathy at L5-S1. 5. Atherosclerotic vascular disease. 6. There are multiple cysts identified involving both kidneys. Some smaller subcapsular lesions with increased attenuation seen in the lower half of the right kidney are likely cysts the contain proteinaceous material or hemorrhage. These are not fully characterize by CT and ultrasound is recommended to exclude any possibility of solid lesions. RPTAT:AAJJ Physician Sonny Date Time Electronically viewed and signed by Keo Craven Physician on 01/17/2017 19:01 Labs Result Diagram: 01/17/17 1630 01/17/17 1740 Medications Medications Current Medications Hydromorphone HCl (Dilaudid) 1 mg Q4H PRN IV PAIN Last administered on t 21:57; Admin Dose 1 MG; Start 01/17/17 at 22:00 ANIYAH KING Jan 17, 2017 23:58
[2017-01-18] VITALS (11 sets, daily range): BP systolic 83–145; BP diastolic 47–73; PULSE 77–99; RESP 15–19
[2017-01-18] MEDS: clonAZEPAM 0.5 MG TAB PO PRN ×2 (00:48→11:20)
[2017-01-18] MEDS: RISPERIDONE 2 MG TAB PO SCH ×3 (00:58→21:04)
[2017-01-18] MEDS ORDERED: PENDING SANTYL ORDER FOR WOUND CARE XX PRN (02:30)
[2017-01-18] MEDS: HYDROmorphONE 1 MG/ML SYG IV PRN ×2 (04:53→11:26)
[2017-01-18] MEDS ORDERED: VANCOMYCIN IV PER PHARMACY XX SCH (05:00)
[2017-01-18] MEDS ORDERED: PIPER-TAZO 3.375 GM IV (PMX) 100 ML IVPB SCH (06:00)
[2017-01-18] MEDS ORDERED: COLLAGENASE 30 GM TUBE TOP PRN (06:30)
[2017-01-18] MEDS ORDERED: COLLAGENASE 30 GM TUBE TOP SCH (09:00)
[2017-01-18 09:05] LABS: ADD SCAN DIFF NO
--- NOTE | 2017-01-18 09:05 | RADRPT ---
PROCEDURE: US Renal CLINICAL INDICATION: The renal cysts on CT. TECHNIQUE: Multiple sonographic images of the kidneys and bladder were obtained. Evaluation of th e kidneys and bladder was performed as well with ashton scale and color and Doppler evaluation using a curved array transducer. The images were reviewed on a high-resolution PACS workstation. COMPARISON: CT of the pelvis from 01/17/2017. Previous right upper quadrant ultrasound from 2012 P FINDINGS: The right kidney measures 11.0 cm. The left kidney measures 11.7 cm. There is normal echogenicity within the parenchyma of the kidneys bilaterally. There are bilateral renal cysts. The largest on the right measures 4.0 x 3.4 x 3.8 cm. Largest on the left measures 2.5 x 2.0 x 1.7 cm. There is mild bilateral hydronephrosis. No perinephric fluid collection is seen. Urinary bladder appears mildly distended with some debris seen. IMPRESSION: 1. Mild bilateral hydronephrosis. 2. Bilateral renal cysts. 3. Mildly distended urinary bladder with dependent debris in the lumen. RPTAT: AACC Physician Catarina Date Time Electronically viewed and signed by Physician Catarina on 01/18/2017 09:05 /
[2017-01-18 09:07] LABS: BASOPHILS % 0.2 % (0.0-2.0); EOSINOPHILS % 0.4 % (0.0-7.0); HEMATOCRIT 24.2 % (42.0-52.0); HEMOGLOBIN 8.1 g/dl (14.0-18.0); LYMPHOCYTES # 0.7 10^3/ul (0.8-2.9); LYMPHOCYTES % 12.9 % (15.0-51.0); MEAN CORPUSCULAR HEMOGLOBIN 32.5 pg (29.0-33.0); MEAN CORPUSCULAR HGB CONC 33.5 g/dl (32.0-37.0); MEAN CORPUSCULAR VOLUME 97.2 fl (82.0-101.0); MEAN PLATELET VOLUME 10.8 fl (7.4-10.4); MONOCYTE # 0.5 10^3/ul (0.3-0.9); MONOCYTES % 10.2 % (0.0-11.0); NEUTROPHILS % 75.9 % (39.0-77.0); PLATELET COUNT 135 10^3/UL (140-415); RED BLOOD COUNT 2.49 10^6/ul (4.70-6.10); RED CELL DISTRIBUTION WIDTH 14.4 % (11.5-14.5); WHITE BLOOD COUNT 5.3 10^3/ul (4.8-10.8)
[2017-01-18] MEDS: ARIPIPRAZOLE 5 MG TAB PO SCH (09:29)
[2017-01-18] MEDS: PREGABALIN 25 MG CAP PO SCH ×2 (09:30→21:04)
[2017-01-18] MEDS: DULOXETINE 30 MG CAP DR PO SCH (09:30)
[2017-01-18] MEDS: FOLIC ACID 1 MG TAB PO SCH (09:31)
[2017-01-18] MEDS: BUSPIRONE 10 MG TAB PO SCH ×3 (09:31→20:40)
[2017-01-18] MEDS: ASPIRIN (EC) 81 MG TAB PO SCH (09:31)
[2017-01-18 09:34] LABS: ALBUMIN 2.8 g/dl (3.3-4.9); ALBUMIN/GLOBULIN RATIO 0.96; BILIRUBIN,INDIRECT 0.2 mg/dl (0-1.1); BILIRUBIN,TOTAL 0.2 mg/dl (0.2-1.3); CALCIUM 7.9 mg/dl (8.4-10.2); CREATININE 2.38 mg/dl (0.61-1.24); POTASSIUM 3.5 mmol/L (3.5-5.1); TOTAL PROTEIN 5.7 g/dl (6.1-8.1)
--- NOTE | 2017-01-18 14:12 | PN ---
Date/Time of Note Date/Time of Note DATE: 01/18/17 TIME: 13:56 Assessment/Plan VTE Prophylaxis VTE Prophylaxis Intervention: heparin Lines/Catheters IV Catheter Type (from Nrsg): Saline Lock Assessment/Plan Assessment/Plan 66 yo M who presented with severe pain with defecation and buttock cellulitis sent from PMD's office: #1 Cellulitis and ulceration of the buttocks region: #2 Urinary tract infection Likely associated with #4 #3 Mental health/possible schizophrenia #4 Hx of BPH with USS findings of mild urinary retention and renal cysts: * retention may be associated with chronic opioid use #5 Degenerative joint disease with Chronic back pain and hx of back:, PLAN: * Surgical review for possible wound debridement / F/u wound and urine cultures * add good bowel regimen * continue supportive care DVT and GI prophylaxis: SCD, Protonix Subjective 24 Hr Interval Summary Free Text/Dictation c/o pain on buttocks Exam/Review of Systems Vital Signs Vitals Vital Signs Date Time Temp Pulse Resp B/P Pulse Ox O2 Delivery O2 Flow Rate FiO2 01/18/17 12:05 99 01/18/17 07:49 98.2 16 92/54 95 01/17/17 23:02 Room Air Intake and Output 01/17/17 01/17/17 01/18/17 15:00 23:00 07:00 Intake Total 1200 ml Output Total 1100 ml Balance 100 ml Exam Constitutional: alert, oriented Respiratory: clear to auscultation Cardiovascular: regular rate and rhythm, No murmurs/extra sounds Gastrointestinal: bowel sounds, non-tender, soft Extremities: other (buttock wound covered in slough) Neurological: nl mental status Results Result Diagram: 01/18/17 0737 01/18/17 0737 Results 24 hrs Laboratory Tests Test 01/17/17 16:30 01/17/17 17:40 01/17/17 18:00 01/17/17 19:50 White Blood Count 12.3 #H Red Blood Count 3.41 L Hemoglobin 11.0 L Hematocrit 32.3 L Mean Corpuscular Volume 94.7 Mean Corpuscular Hemoglobin 32.3 Mean Corpuscular Hemoglobin Concent 34.1 Red Cell Distribution Width 14.6 H Platelet Count 255 # Mean Platelet Volume 11.4 H Neutrophils % 88.6 H Lymphocytes % 3.1 L Monocytes % 7.5 Eosinophils % 0.1 Basophils % 0.2 Nucleated Red Blood Cells % 0.0 Neutrophils # 10.9 H Lymphocytes # 0.4 L Monocytes # 0.9 Eosinophils # 0.0 Basophils # 0.0 Nucleated Red Blood Cells # 0.0 Prothrombin Time 16.1 H Prothrombin Time Ratio 1.3 INR International Normalized Ratio 1.28 Activated Partial Thromboplast Time 42.3 H Sodium Level 126 L Potassium Level 3.4 L Chloride Level 103 Carbon Dioxide Level 16 L Anion Gap 10 Blood Urea Nitrogen 39 H Creatinine 2.62 H Glucose Level 103 Lactic Acid Level 1.4 1.7 Calcium Level 7.6 L Total Bilirubin 0.4 Direct Bilirubin 0.00 Indirect Bilirubin 0.4 Aspartate Amino Transf (AST/SGOT) 60 H Alanine Aminotransferase (ALT/SGPT) 43 Alkaline Phosphatase 50 Troponin I 0.020 Total Protein 5.9 L Albumin 3.0 L Globulin 2.90 Albumin/Globulin Ratio 1.03 Urine Color YELLOW Urine Clarity SLIGHTLY CLOUDY A Urine pH 6.0 Urine Specific [place] 1.004 Urine Ketones NEGATIVE Urine Nitrite NEGATIVE Urine Bilirubin NEGATIVE Urine Urobilinogen NEGATIVE Urine Leukocyte Esterase 2+ H Urine Microscopic RBC 2 Urine Microscopic WBC 7 H Urine Bacteria FEW A Urine Hemoglobin 2+ H Urine Glucose NEGATIVE Urine Total Protein NEGATIVE Test 01/17/17 22:20 01/18/17 07:37 Lactic Acid Level 1.1 White Blood Count 5.3 # Red Blood Count 2.49 #L Hemoglobin 8.1 #L Hematocrit 24.2 #L Mean Corpuscular Volume 97.2 Mean Corpuscular Hemoglobin 32.5 Mean Corpuscular Hemoglobin Concent 33.5 Red Cell Distribution Width 14.4 Platelet Count 135 #L Mean Platelet Volume 10.8 H Neutrophils % 75.9 Lymphocytes % 12.9 L Monocytes % 10.2 Eosinophils % 0.4 Basophils % 0.2 Nucleated Red Blood Cells % 0.0 Neutrophils # 4.0 Lymphocytes # 0.7 L Monocytes # 0.5 Eosinophils # 0.0 Basophils # 0.0 Nucleated Red Blood Cells # 0.0 Sodium Level 125 L Potassium Level 3.5 Chloride Level 101 Carbon Dioxide Level 19 L Anion Gap 9 Blood Urea Nitrogen 35 H Creatinine 2.38 H Glucose Level 83 Calcium Level 7.9 L Total Bilirubin 0.2 Direct Bilirubin 0.00 Indirect Bilirubin 0.2 Aspartate Amino Transf (AST/SGOT) 68 H Alanine Aminotransferase (ALT/SGPT) 44 Alkaline Phosphatase 40 L Total Protein 5.7 L Albumin 2.8 L Globulin 2.90 Albumin/Globulin Ratio 0.96 Medications Medications Current Medications Hydromorphone HCl (Dilaudid) 1 mg Q4H PRN IV PAIN Last administered on 11:26; Admin Dose 1 MG; Start 01/17/17 at 22:00 Aripiprazole (Abilify) 5 mg DAILY PO Last administered on 01/18/17 09:29; Admin Dose 5 MG; Start 01/18/17 at 09:00 Aspirin (Halfprin) 81 mg DAILY PO Last administered on 01/18/17 09:31; Admin Dose 81 MG; Start 01/18/17 at 09:00 Buspirone HCl (Buspar) 10 mg TID PO Last administered on 01/18/17 13:02; Admin Dose 10 MG; Start 01/18/17 at 09:00 Clonazepam (Klonopin) 1 mg BID PRN PO ANXIETY Last administered on 01/18/17 11 :20; Admin Dose 1 MG; Start 01/18/17 at 00:30 Duloxetine HCl (Cymbalta) 120 mg DAILY PO Last administered on 01/18/17 09:30 ; Admin Dose 120 MG; Start 01/18/17 at 09:00 Folic Acid (Folic Acid) 1 mg DAILY PO Last administered on 01/18/17 09:31; Admin Dose 1 MG; Start 01/18/17 at 09:00 Pregabalin (Lyrica) 50 mg BID PO Last administered on 01/18/17 09:30; Admin Dose 50 MG; Start 01/18/17 at 09:00 Ropinirole HCl (Requip) 0.25 mg HS PO ; Start 01/18/17 at 21:00 Tamsulosin HCl (Flomax) 0.4 mg HS PO ; Start 01/18/17 at 21:00 Atorvastatin Calcium (Lipitor) 5 mg QHS PO ; Start 01/18/17 at 21:00 Risperidone (Risperdal) 2 mg BID PO Last administered on 01/18/17 09:30; Admin Dose 2 MG; Start 01/18/17 at 00:30 Hydromorphone HCl 0.5 mg 0.5 mg Q4H PRN IV PAIN; Start 01/18/17 at 00:30 Ceftriaxone Sodium (Rocephin) 50 ml @ 100 mls/hr Q24H IVPB ; Start 01/18/17 at 17:00 Collagenase (Santyl) 1 applic DAILY TOP Last administered on 01/18/17t 06:31; Admin Dose 1 APPLIC; Start 01/18/17 at 09:00 Collagenase (Santyl) 1 applic PRN PRN TOP SOILING OR DISLODGED DRESSING; Start 01/18/17 at 06:30 Miscellaneous Information (*Rx Drug Level Order Reminder*) RANDOM VANCO LEVEL... ONCE ONCE XX ; Start 01/19/17 at 05:00; Stop 01/19/17 at 05:01 Procedures Procedures PROCEDURE: US Renal CLINICAL INDICATION: The renal cysts on CT. TECHNIQUE: Multiple sonographic images of the kidneys and bladder were obtained. Evaluation of the kidneys and bladder was performed as well with ashton scale and color and Doppler evaluation using a curved array transducer. The images were reviewed on a high-resolution PACS workstation. COMPARISON: CT of the pelvis from 01/17/2017. Previous right upper quadrant ultrasound from 01/09/2013 P FINDINGS: The right kidney measures 11.0 cm. The left kidney measures 11.7 cm. There is normal echogenicity within the parenchyma of the kidneys bilaterally. There are bilateral renal cysts. The largest on the right measures 4.0 x 3.4 x 3.8 cm. Largest on the left measures 2.5 x 2.0 x 1.7 cm. There is mild bilateral hydronephrosis. No perinephric fluid collection is seen. Urinary bladder appears mildly distended with some debris seen. IMPRESSION: 1. Mild bilateral hydronephrosis. 2. Bilateral renal cysts. 3. Mildly distended urinary bladder with dependent debris in the lumen. RPTAT: AACC Physician Catarina Date Time Electronically viewed and signed by Physician Catarina on 01/18/2017 09: 05 JH/ CC: ANIYAH KING BOLATITO M. Jan 18, 2017 14:08
[2017-01-18] MEDS: oxyCODONE (CR) 10 MG TAB [oxyCONTIN] PO SCH ×2 (14:31→21:04)
[2017-01-18] MEDS ORDERED: LEVOFLOXACIN 750MG/D5W (PMX) 150 ML IVPB SCH (15:00)
[2017-01-18] MEDS: SOD CHLORIDE 0.9% 1,000 ML IV SCH (15:14)
[2017-01-18] MEDS ORDERED: CEFTRIAXONE 1 GM/50 ML (PMX) 50 ML IVPB SCH (17:00)
--- NOTE | 2017-01-18 18:21 | CONS ---
Date/Time of Note Date/Time of Note DATE: 01/18/17 TIME: 18:21 Consultation Date/Type/Reason Admit Date/Time Jan 17, 2017 at 21:06 Type of Consultation: ID Past Surgical History Past Surgical Hx: cholecystectomy Social History Alcohol Use: none Smoking Status: Former smoker Drug Use: none Exam/Review of Systems Vital Signs Vitals Vital Signs Date Time Temp Pulse Resp B/P Pulse Ox O2 Delivery O2 Flow Rate FiO2 01/18/17 16:05 77 01/18/17 15:25 98.1 16 83/47 97 01/17/17 23:02 Room Air Intake and Output 01/17/17 01/17/17 01/18/17 15:00 23:00 07:00 Intake Total 1200 ml Output Total 1100 ml Balance 100 ml Results Result Diagram: 01/18/17 0737 01/18/1737 Results 24 hrs Laboratory Tests Test 01/17/17 19:50 01/17/17 22:20 01/18/17 07:37 Lactic Acid Level 1.7 1.1 White Blood Count 5.3 # Red Blood Count 2.49 #L Hemoglobin 8.1 #L Hematocrit 24.2 #L Mean Corpuscular Volume 97.2 Mean Corpuscular Hemoglobin 32.5 Mean Corpuscular Hemoglobin Concent 33.5 Red Cell Distribution Width 14.4 Platelet Count 135 #L Mean Platelet Volume 10.8 H Neutrophils % 75.9 Lymphocytes % 12.9 L Monocytes % 10.2 Eosinophils % 0.4 Basophils % 0.2 Nucleated Red Blood Cells % 0.0 Neutrophils # 4.0 Lymphocytes # 0.7 L Monocytes # 0.5 Eosinophils # 0.0 Basophils # 0.0 Nucleated Red Blood Cells # 0.0 Sodium Level 125 L Potassium Level 3.5 Chloride Level 101 Carbon Dioxide Level 19 L Anion Gap 9 Blood Urea Nitrogen 35 H Creatinine 2.38 H Glucose Level 83 Calcium Level 7.9 L Total Bilirubin 0.2 Direct Bilirubin 0.00 Indirect Bilirubin 0.2 Aspartate Amino Transf (AST/SGOT) 68 H Alanine Aminotransferase (ALT/SGPT) 44 Alkaline Phosphatase 40 L Total Protein 5.7 L Albumin 2.8 L Globulin 2.90 Albumin/Globulin Ratio 0.96 Medications Medications Current Medications Aripiprazole (Abilify) 5 mg DAILY PO Last administered on 01/18/17t 09:29; Admin Dose 5 MG; Start 01/18/17 at 09:00 Aspirin (Halfprin) 81 mg DAILY PO Last administered on 01/18/17 09:31; Admin Dose 81 MG; Start 01/18/17 at 09:00 Buspirone HCl (Buspar) 10 mg TID PO Last administered on 01/18/17 13:02; Admin Dose 10 MG; Start 01/18/17 at 09:00 Clonazepam (Klonopin) 1 mg BID PRN PO ANXIETY Last administered on 01/18/17 11 :20; Admin Dose 1 MG; Start 01/18/17 at 00:30 Duloxetine HCl (Cymbalta) 120 mg DAILY PO Last administered on 01/18/17 09:30 ; Admin Dose 120 MG; Start 01/18/17 at 09:00 Folic Acid (Folic Acid) 1 mg DAILY PO Last administered on 01/18/17 09:31; Admin Dose 1 MG; Start 01/18/17 at 09:00 Pregabalin (Lyrica) 50 mg BID PO Last administered on 01/18/17 09:30; Admin Dose 50 MG; Start 01/18/17 at 09:00 Ropinirole HCl (Requip) 0.25 mg HS PO ; Start 01/18/17 at 21:00 Tamsulosin HCl (Flomax) 0.4 mg HS PO ; Start 01/18/17 at 21:00 Atorvastatin Calcium (Lipitor) 5 mg QHS PO ; Start 01/18/17 at 21:00 Risperidone (Risperdal) 2 mg BID PO Last administered on 01/18/17 09:30; Admin Dose 2 MG; Start 01/18/17 at 00:30 Hydromorphone HCl (Dilaudid) 0.5 mg Q4H PRN IV PAIN; Start 01/18/17 at 00:30 Miscellaneous Information (*Rx Drug Level Order Reminder*) RANDOM VANCO LEVEL... ONCE ONCE XX ; Start 01/19/17 at 05:00; Stop 01/19/17 at 05:01 Morphine Sulfate (morphine) 4 mg Q4H PRN IV pain; Start 01/18/17 at 14:00 Polyethylene Glycol (Miralax) 17 gm DAILY PO ; Start 01/19/17 at 09:00 Docusate Sodium 250 mg 250 mg DAILY PO ; Start 01/19/17 at 09:00 Levofloxacin/ Dextrose 150 ml @ 100 mls/hr Q48H IVPB Last administered on 01/18 15:15; Admin Dose 100 MLS/HR; Start 01/18/17 at 15:00 Sodium Chloride (NS) 1,000 ml @ 100 mls/hr Q10H IV Last administered on 15:14; Admin Dose 100 MLS/HR; Start 01/18/17 at 14:30 Oxycodone HCl (Oxycontin) 10 mg BID PO Last administered on 01/18/17 14:31; Admin Dose 10 MG; Start 01/18/17 at 14:23 Sodium Hypochlorite (Dakin'S (1/4 Strength)) 1 applic BID IRR ; Start 01/18/17 at 21:00 JODIE JULES MD Jan 18, 2017 18:21
[2017-01-18] MEDS: PIPER-TAZO 2.25 GM (PMX) 50 ML IVPB SCH (18:58)
[2017-01-18] MEDS: morphine 4 MG/ML VIAL IV PRN (19:03)
[2017-01-18] MEDS: ATORVASTATIN 10 MG TAB PO SCH (20:39)
[2017-01-18] MEDS: TAMSULOSIN (SR) 0.4 MG CAP PO SCH (20:39)
[2017-01-18] MEDS ORDERED: oxyCODONE (CR) 10 MG TAB [oxyCONTIN] PO SCH (21:00)
[2017-01-18] MEDS: SODIUM HYPOCHLORITE 0.125% 473 ML BTL IRR SCH ×2 (21:00→22:05)
[2017-01-18] MEDS: ROPINIROLE 0.25 MG TAB PO SCH (22:04)
[2017-01-19] VITALS (12 sets, daily range): BP systolic 84–129; BP diastolic 48–73; PULSE 63–84; RESP 15–20
[2017-01-19] MEDS: PIPER-TAZO 2.25 GM (PMX) 50 ML IVPB SCH ×5 (00:29→23:52)
[2017-01-19] MEDS: SOD CHLORIDE 0.9% 1,000 ML IV SCH ×3 (00:30→20:30)
[2017-01-19] MEDS ORDERED: SOD CHLORIDE 0.9% 500 ML IV ONE (04:30)
[2017-01-19 05:39] LABS: ADD SCAN DIFF NO
[2017-01-19 05:47] LABS: ABNORMAL IP MESSAGE 1; BASOPHILS % 0.3 % (0.0-2.0); EOSINOPHILS # 0.1 10^3/ul (0.0-0.5); EOSINOPHILS % 1.5 % (0.0-7.0); HEMATOCRIT 22.9 % (42.0-52.0); HEMOGLOBIN 7.3 g/dl (14.0-18.0); LYMPHOCYTES # 0.5 10^3/ul (0.8-2.9); LYMPHOCYTES % 15.1 % (15.0-51.0); MEAN CORPUSCULAR HEMOGLOBIN 31.7 pg (29.0-33.0); MEAN CORPUSCULAR HGB CONC 31.9 g/dl (32.0-37.0); MEAN CORPUSCULAR VOLUME 99.6 fl (82.0-101.0); MEAN PLATELET VOLUME 10.1 fl (7.4-10.4); MONOCYTE # 0.2 10^3/ul (0.3-0.9); MONOCYTES % 7.3 % (0.0-11.0); NEUTROPHIL # 2.5 10^3/ul (1.6-7.5); NEUTROPHILS % 75.2 % (39.0-77.0); PLATELET COUNT 100 10^3/UL (140-415); RED CELL DISTRIBUTION WIDTH 14.5 % (11.5-14.5); WHITE BLOOD COUNT 3.3 10^3/ul (4.8-10.8)
[2017-01-19 06:11] LABS: ALBUMIN 2.6 g/dl (3.3-4.9); ALBUMIN/GLOBULIN RATIO 0.89; CALCIUM 7.4 mg/dl (8.4-10.2); CREATININE 2.19 mg/dl (0.61-1.24); POTASSIUM 3.5 mmol/L (3.5-5.1); TOTAL PROTEIN 5.5 g/dl (6.1-8.1)
[2017-01-19] MEDS: SODIUM HYPOCHLORITE 0.125% 473 ML BTL IRR SCH ×3 (08:29→21:22)
[2017-01-19] MEDS: ASPIRIN (EC) 81 MG TAB PO SCH (08:30)
[2017-01-19] MEDS: DOCUSATE SODIUM 250 MG CAP PO SCH (08:30)
[2017-01-19] MEDS: RISPERIDONE 2 MG TAB PO SCH ×2 (08:30→21:03)
[2017-01-19] MEDS: FOLIC ACID 1 MG TAB PO SCH (08:30)
[2017-01-19] MEDS: DULOXETINE 30 MG CAP DR PO SCH (08:30)
[2017-01-19] MEDS: BUSPIRONE 10 MG TAB PO SCH ×3 (08:30→21:22)
[2017-01-19] MEDS: POLYETHYLENE GLYCOL 17 GM PACKET PO SCH (08:30)
[2017-01-19] MEDS: ARIPIPRAZOLE 5 MG TAB PO SCH (08:30)
[2017-01-19] MEDS: PREGABALIN 25 MG CAP PO SCH ×2 (08:35→21:22)
[2017-01-19] MEDS: oxyCODONE (CR) 10 MG TAB [oxyCONTIN] PO SCH ×2 (09:21→21:22)
--- NOTE | 2017-01-19 11:46 | PN ---
Date/Time of Note Date/Time of Note DATE: 01/19/17 TIME: 11:40 Assessment/Plan VTE Prophylaxis VTE Prophylaxis Intervention: SCD's VTE Contraindication Reason: thrombocytopenia Lines/Catheters IV Catheter Type (from Nrsg): Peripheral IV Assessment/Plan Assessment/Plan 66 yo M who presented with severe pain with defecation and buttock cellulitis sent from PMD's office: #1 Cellulitis and ulceration of the buttocks region: #2 Enterobacter Urinary tract infection Likely associated with #4 #3 Mental health/possible schizophrenia #4 Hx of BPH with USS findings of mild urinary retention and renal cysts: * retention may be associated with chronic opioid use #5 Degenerative joint disease with Chronic back pain and hx of back:, #6 Hyponatremia: 2/2 dehydration? #7 ILYA r/o CKD, ?Combination of Pre and post renal : improving slowly #8 Hepatitis C associated chronic liver disease with Pancytopenia , mild coagulopathy, and elevated transaminases. PLAN: * Continue abx / appreciate ID and Surgical review for possible wound debridement / F/u wound cultures * Continue bowel regimen and wound care * Pancytopenia likely 2/2 liver disease, will r/o iron deficiency * continue supportive care / PT eval DVT and GI prophylaxis: SCD, Protonix Subjective 24 Hr Interval Summary Free Text/Dictation patient still having a lot of sacral pain Patient states he has been fairly immobile since fracture causing ulcer Exam/Review of Systems Vital Signs Vitals Vital Signs Date Time Temp Pulse Resp B/P Pulse Ox O2 Delivery O2 Flow Rate FiO2 01/19/17 08:30 70 01/19/17 07:11 98.0 17 89/51 98 01/19/17 05:30 Room Air Intake and Output 01/18/17 01/18/17 01/19/17 15:00 23:00 07:00 Intake Total 3000 ml 450 ml Output Total 300 ml 1500 ml 1400 ml Balance -300 ml 1500 ml -950 ml Exam Constitutional: alert, other (chronically ill looking) Head: normocephalic ENMT: other (?tardive dyskinesia), No nl lips & teeth (no dentition) Neck: supple Respiratory: clear to auscultation Cardiovascular: regular rate and rhythm, No murmurs/extra sounds Gastrointestinal: bowel sounds, non-tender, soft Extremities: No edema Neurological: No focal weakness Results Result Diagram: 01/19/17 0522 01/19/17 0522 Results 24 hrs Laboratory Tests Test 01/19/17 05:22 White Blood Count 3.3 #L Red Blood Count 2.30 L Hemoglobin 7.3 L Hematocrit 22.9 L Mean Corpuscular Volume 99.6 Mean Corpuscular Hemoglobin 31.7 Mean Corpuscular Hemoglobin Concent 31.9 L Red Cell Distribution Width 14.5 Platelet Count 100 #L Mean Platelet Volume 10.1 Neutrophils % 75.2 Lymphocytes % 15.1 Monocytes % 7.3 Eosinophils % 1.5 Basophils % 0.3 Nucleated Red Blood Cells % 0.0 Neutrophils # 2.5 Lymphocytes # 0.5 L Monocytes # 0.2 L Eosinophils # 0.1 Basophils # 0.0 Nucleated Red Blood Cells # 0.0 Sodium Level 132 L Potassium Level 3.5 Chloride Level 107 Carbon Dioxide Level 20 L Anion Gap 9 Blood Urea Nitrogen 28 H Creatinine 2.19 H Glucose Level 105 Calcium Level 7.4 L Total Bilirubin 0.0 L Direct Bilirubin 0.00 Indirect Bilirubin 0.0 Aspartate Amino Transf (AST/SGOT) 59 H Alanine Aminotransferase (ALT/SGPT) 47 Alkaline Phosphatase 42 Total Protein 5.5 L Albumin 2.6 L Globulin 2.90 Albumin/Globulin Ratio 0.89 Random Vancomycin Level 5.8 Hepatitis B Surface Antigen NEGATIVE Hepatitis B Surface Antibody NEGATIVE Hepatitis C Antibody REACTIVE H Medications Medications Current Medications Aripiprazole (Abilify) 5 mg DAILY PO Last administered on 01/19/17 08:30; Admin Dose 5 MG; Start 01/18/17 at 09:00 Aspirin (Halfprin) 81 mg DAILY PO Last administered on 01/19/17 08:30; Admin Dose 81 MG; Start 01/18/17 at 09:00 Buspirone HCl (Buspar) 10 mg TID PO Last administered on 01/19/17 08:30; Admin Dose 10 MG; Start 01/18/17 at 09:00 Clonazepam (Klonopin) 1 mg BID PRN PO ANXIETY Last administered on 01/18/17 11 :20; Admin Dose 1 MG; Start 01/18/17 at 00:30 Duloxetine HCl (Cymbalta) 120 mg DAILY PO Last administered on 01/19/17 08:30 ; Admin Dose 120 MG; Start 01/18/17 at 09:00 Folic Acid (Folic Acid) 1 mg DAILY PO Last administered on 01/19/17 08:30; Admin Dose 1 MG; Start 01/18/17 at 09:00 Pregabalin (Lyrica) 50 mg BID PO Last administered on 01/19/17 08:35; Admin Dose 50 MG; Start 01/18/17 at 09:00 Ropinirole HCl (Requip) 0.25 mg HS PO Last administered on 01/18/17 22:04; Admin Dose 0.25 MG; Start 01/18/17 at 21:00 Tamsulosin HCl (Flomax) 0.4 mg HS PO Last administered on 01/18/17 20:39; Admin Dose 0.4 MG; Start 01/18/17 at 21:00 Atorvastatin Calcium (Lipitor) 5 mg QHS PO Last administered on 01/18/17 20:39 ; Admin Dose 5 MG; Start 01/18/17 at 21:00 Risperidone (Risperdal) 2 mg BID PO Last administered on 01/19/17 08:30; Admin Dose 2 MG; Start 01/18/17 at 00:30 Hydromorphone HCl (Dilaudid) 0.5 mg Q4H PRN IV PAIN; Start 01/18/17 at 00:30 Morphine Sulfate (morphine) 4 mg Q4H PRN IV pain Last administered on 19:03; Admin Dose 4 MG; Start 01/18/17 at 14:00 Polyethylene Glycol (Miralax) 17 gm DAILY PO Last administered on 01/19/17 08: 30; Admin Dose 17 GM; Start 01/19/17 at 09:00 Docusate Sodium 250 mg 250 mg DAILY PO Last administered on 01/19/17 08:30; Admin Dose 250 MG; Start 01/19/17 at 09:00 Sodium Chloride (NS) 1,000 ml @ 100 mls/hr Q10H IV Last administered on 07:30; Admin Dose 100 MLS/HR; Start 01/18/17 at 14:30 Oxycodone HCl (Oxycontin) 10 mg BID PO Last administered on 01/19/17 09:21; Admin Dose 10 MG; Start 01/18/17 at 14:23 Sodium Hypochlorite 1 applic 1 applic BID IRR Last administered on 01/19/17 08 :29; Admin Dose 1 APPLIC; Start 01/18/17 at 21:00 Piperacillin Sod/ Tazobactam Sod 50 ml @ 200 mls/hr Q6 IVPB Last administered on 01/19/17 05:52; Admin Dose 200 MLS/HR; Start 01/18/17 at 19:00 Vancomycin HCl/ Sodium Chloride (Vancocin/NS) 250 ml @ 83.333 mls/ hr ONCE ONCE IVPB ; Start 01/19/17 at 12:00; Stop 01/19/17 at 14:59 SRIKANTH GARCIA Jan 19, 2017 11:46
--- NOTE | 2017-01-19 11:55 | CONS ---
Date/Time of Note Date/Time of Note DATE: 01/19/17 TIME: 11:15 Assessment/Plan Assessment/Plan Chief Complaint/Hosp Course 1. Sacral wound: with slough and necrotic area in wound bed, periwound reddened -sacral wound debridement -local care -frequent turning and repositioning -specialty bed -nutrition optimization 2. Sacral cellulitis: 2/2 above: CT: cellulitis surrounding an ulceration which extends into the subcutaneous fat abutting the dorsal surface of the coccyx without evidence of an associated subcutaneous abscess or osteomyelitis. -as above -abx 3. Leukocytopenia: likely 2/2 above -supportive -as above 4. Normocytic anemia: no acute bleed noted: -monitor -transfuse as needed 5. Thrombocytopenia 2/2 #2 -bleeding precautions -supportive 6. Hyponatremia: improved -judicious fluid management 7.ILYA: bilateral hydronephrosis with bilateral renal cyst; improving -judicious fluid management avoid nephrotoxic meds -renal dosing for meds 8. Hypocalcemia with hypoalbuminemia: likely 2/2 malnutrition -nutrition optimization -optimize lytes 9. UTI: urine cx: enterobacter cloacae; afebrile -abx per sensitivity Patient seen and examined in collaboration with Dr. El Root Problems: Consultation Date/Type/Reason Admit Date/Time Jan 17, 2017 at 21:06 Date of Consultation: Jan 19, 2017 Type of Consultation: wound Reason for Consultation sacral wound Hx of Present Illness Delano Gates is a 66 yo man sent from his PCP due to an infected wound on his sacrum. He c/o pain, chills and subjective fever. States that he had a hip fracture sometime ago and since he is started to develop some rectal pain especially with bowel movements. Patient states that he started noticing the wound approximately 6 months ago after a fall. He has trouble with mobility and has been laying on his back frequently. Surgical consult was called to evaluate. Constitutional: chills, febrile Eyes: No discharge, No visual change ENT: No bleeding, No pain Respiratory: No shortness of breath Cardiovascular: No chest pain, No edema, No lightheadedness Gastrointestinal: flatus, passing stool (with pain), No constipation Genitourinary: No bleeding, No dysuria Musculoskeletal: back pain (sacrum) Skin: other (sacral wound), No pruritis Neurologic: No confusion, No headache, No syncope Lymphatic: no complaints Psychological: anxiety Past Medical History Anxiety Chronic kidney disease Possible schizophrenia Coronary heart disease Past Surgical History hip surgery Past Surgical Hx: cholecystectomy Family History Significant Family History: no pertinent family hx Social History Alcohol Use: none Smoking Status: Former smoker Drug Use: none Exam/Review of Systems Vital Signs Vitals Vital Signs Date Time Temp Pulse Resp B/P Pulse Ox O2 Delivery O2 Flow Rate FiO2 01/19/17 08:30 70 01/19/17 07:11 98.0 17 89/51 98 01/19/17 05:30 Room Air Intake and Output 01/18/17 01/18/17 01/19/17 15:00 23:00 07:00 Intake Total 3000 ml 450 ml Output Total 300 ml 1500 ml 1400 ml Balance -300 ml 1500 ml -950 ml Exam Constitutional: alert, oriented Psych: anxiety Head: atraumatic, normocephalic Eyes: PERRL, nl lids, nl sclera ENMT: mucosa pink and moist, nl nasal mucosa & septum Neck: non-tender, supple Respiratory: normal air movement Cardiovascular: nl pulses, regular rate and rhythm Gastrointestinal: non-tender, soft Musculoskeletal: nl extremities to inspection Extremities: normal pulses Neurological: nl speech, nl strength Skin: other (sacral wound with slough and necrotic tissue, periwound erythema) Lymph: nl lymph nodes Results Result Diagram: 01/19/1752101/19/17521 Results 24 hrs Laboratory Tests Test 01/19/17 05:22 White Blood Count 3.3 #L Red Blood Count 2.30 L Hemoglobin 7.3 L Hematocrit 22.9 L Mean Corpuscular Volume 99.6 Mean Corpuscular Hemoglobin 31.7 Mean Corpuscular Hemoglobin Concent 31.9 L Red Cell Distribution Width 14.5 Platelet Count 100 #L Mean Platelet Volume 10.1 Neutrophils % 75.2 Lymphocytes % 15.1 Monocytes % 7.3 Eosinophils % 1.5 Basophils % 0.3 Nucleated Red Blood Cells % 0.0 Neutrophils # 2.5 Lymphocytes # 0.5 L Monocytes # 0.2 L Eosinophils # 0.1 Basophils # 0.0 Nucleated Red Blood Cells # 0.0 Sodium Level 132 L Potassium Level 3.5 Chloride Level 107 Carbon Dioxide Level 20 L Anion Gap 9 Blood Urea Nitrogen 28 H Creatinine 2.19 H Glucose Level 105 Calcium Level 7.4 L Total Bilirubin 0.0 L Direct Bilirubin 0.00 Indirect Bilirubin 0.0 Aspartate Amino Transf (AST/SGOT) 59 H Alanine Aminotransferase (ALT/SGPT) 47 Alkaline Phosphatase 42 Total Protein 5.5 L Albumin 2.6 L Globulin 2.90 Albumin/Globulin Ratio 0.89 Random Vancomycin Level 5.8 Hepatitis B Surface Antigen NEGATIVE Hepatitis B Surface Antibody NEGATIVE Hepatitis C Antibody REACTIVE H Medications Medications Current Medications Aripiprazole (Abilify) 5 mg DAILY PO Last administered on 01/19/17 08:30; Admin Dose 5 MG; Start 01/18/17 at 09:00 Aspirin (Halfprin) 81 mg DAILY PO Last administered on 01/19/17 08:30; Admin Dose 81 MG; Start 01/18/17 at 09:00 Buspirone HCl (Buspar) 10 mg TID PO Last administered on 01/19/17 08:30; Admin Dose 10 MG; Start 01/18/17 at 09:00 Clonazepam (Klonopin) 1 mg BID PRN PO ANXIETY Last administered on 01/18/17 11 :20; Admin Dose 1 MG; Start 01/18/17 at 00:30 Duloxetine HCl (Cymbalta) 120 mg DAILY PO Last administered on 01/19/17 08:30 ; Admin Dose 120 MG; Start 01/18/17 at 09:00 Folic Acid (Folic Acid) 1 mg DAILY PO Last administered on 01/19/17 08:30; Admin Dose 1 MG; Start 01/18/17 at 09:00 Pregabalin (Lyrica) 50 mg BID PO Last administered on 01/19/17 08:35; Admin Dose 50 MG; Start 01/18/17 at 09:00 Ropinirole HCl (Requip) 0.25 mg HS PO Last administered on 01/18/17 22:04; Admin Dose 0.25 MG; Start 01/18/17 at 21:00 Tamsulosin HCl (Flomax) 0.4 mg HS PO Last administered on 01/18/17 20:39; Admin Dose 0.4 MG; Start 01/18/17 at 21:00 Atorvastatin Calcium (Lipitor) 5 mg QHS PO Last administered on 01/18/17 20:39 ; Admin Dose 5 MG; Start 01/18/17 at 21:00 Risperidone (Risperdal) 2 mg BID PO Last administered on 01/19/17 08:30; Admin Dose 2 MG; Start 01/18/17 at 00:30 Hydromorphone HCl (Dilaudid) 0.5 mg Q4H PRN IV PAIN; Start 01/18/17 at 00:30 Morphine Sulfate (morphine) 4 mg Q4H PRN IV pain Last administered on 19:03; Admin Dose 4 MG; Start 01/18/17 at 14:00 Polyethylene Glycol (Miralax) 17 gm DAILY PO Last administered on 01/19/17 08: 30; Admin Dose 17 GM; Start 01/19/17 at 09:00 Docusate Sodium 250 mg 250 mg DAILY PO Last administered on 01/19/17 08:30; Admin Dose 250 MG; Start 01/19/17 at 09:00 Sodium Chloride (NS) 1,000 ml @ 100 mls/hr Q10H IV Last administered on 07:30; Admin Dose 100 MLS/HR; Start 01/18/17 at 14:30 Oxycodone HCl (Oxycontin) 10 mg BID PO Last administered on 01/19/17 09:21; Admin Dose 10 MG; Start 01/18/17 at 14:23 Sodium Hypochlorite 1 applic 1 applic BID IRR Last administered on 01/19/17 08 :29; Admin Dose 1 APPLIC; Start 01/18/17 at 21:00 Piperacillin Sod/ Tazobactam Sod 50 ml @ 200 mls/hr Q6 IVPB Last administered on 01/19/17 05:52; Admin Dose 200 MLS/HR; Start 01/18/17 at 19:00 Vancomycin HCl/ Sodium Chloride (Vancocin/NS) 250 ml @ 83.333 mls/ hr ONCE ONCE IVPB ; Start 01/19/17 at 12:00; Stop 01/19/17 at 14:59 DORINA LITTLEJOHN NP Jan 19, 2017 11:25
[2017-01-19] MEDS ORDERED: VANCOMYCIN 1.25 GM in SOD CHLORIDE 0.9% 250 ML IVPB ONE (12:00)
--- NOTE | 2017-01-19 12:47 | CONS ---
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 Head atraumatic normocephalic, sclera nonicteric. Neck is supple trachea midline. Chest rise symmetrical breath sounds clear bilaterally. No shortness of breath. Heart: S1, S2. Abdomen soft, bowel tones present. Extremities no cyanosis. Skin was unstageable sacral wound. Assessment: 1. Unstageable sacral wound 2. Urinary tract infection 3. Acute on chronic anemia 4. Acute renal failure possible chronic kidney disease 5. History of hepatitis C virus Plan: Continue coverage with broad-spectrum antibiotics, local wound care per surgical recommendations, blood transfusion as needed. Discussed with RN and surgical team id Problems: Consultation Date/Type/Reason Admit Date/Time Jan 17, 2017 at 21:06 Initial Consult Date 01/19/17 Type of Consultation: id Exam/Review of Systems Vital Signs Vitals Vital Signs Date Time Temp Pulse Resp B/P Pulse Ox O2 Delivery O2 Flow Rate FiO2 01/19/17 12:25 98.0 73 18 127/63 98 01/19/17 05:30 Room Air Intake and Output 01/18/17 01/18/17 01/19/17 15:00 23:00 07:00 Intake Total 3000 ml 450 ml Output Total 300 ml 1500 ml 1400 ml Balance -300 ml 1500 ml -950 ml Results Result Diagram: 01/19/17 0522 01/19/17521 Results 24 hrs Laboratory Tests Test 01/19/17 05:22 White Blood Count 3.3 #L Red Blood Count 2.30 L Hemoglobin 7.3 L Hematocrit 22.9 L Mean Corpuscular Volume 99.6 Mean Corpuscular Hemoglobin 31.7 Mean Corpuscular Hemoglobin Concent 31.9 L Red Cell Distribution Width 14.5 Platelet Count 100 #L Mean Platelet Volume 10.1 Neutrophils % 75.2 Lymphocytes % 15.1 Monocytes % 7.3 Eosinophils % 1.5 Basophils % 0.3 Nucleated Red Blood Cells % 0.0 Neutrophils # 2.5 Lymphocytes # 0.5 L Monocytes # 0.2 L Eosinophils # 0.1 Basophils # 0.0 Nucleated Red Blood Cells # 0.0 Sodium Level 132 L Potassium Level 3.5 Chloride Level 107 Carbon Dioxide Level 20 L Anion Gap 9 Blood Urea Nitrogen 28 H Creatinine 2.19 H Glucose Level 105 Calcium Level 7.4 L Total Bilirubin 0.0 L Direct Bilirubin 0.00 Indirect Bilirubin 0.0 Aspartate Amino Transf (AST/SGOT) 59 H Alanine Aminotransferase (ALT/SGPT) 47 Alkaline Phosphatase 42 Total Protein 5.5 L Albumin 2.6 L Globulin 2.90 Albumin/Globulin Ratio 0.89 Random Vancomycin Level 5.8 Hepatitis B Surface Antigen NEGATIVE Hepatitis B Surface Antibody NEGATIVE Hepatitis C Antibody REACTIVE H Medications Medications Current Medications Aripiprazole (Abilify) 5 mg DAILY PO Last administered on 01/19/17 08:30; Admin Dose 5 MG; Start 01/18/17 at 09:00 Aspirin (Halfprin) 81 mg DAILY PO Last administered on 01/19/17 08:30; Admin Dose 81 MG; Start 01/18/17 at 09:00 Buspirone HCl (Buspar) 10 mg TID PO Last administered on 01/19/17 12:27; Admin Dose 10 MG; Start 01/18/17 at 09:00 Clonazepam (Klonopin) 1 mg BID PRN PO ANXIETY Last administered on 01/18/17 11 :20; Admin Dose 1 MG; Start 01/18/17 at 00:30 Duloxetine HCl (Cymbalta) 120 mg DAILY PO Last administered on 01/19/17 08:30 ; Admin Dose 120 MG; Start 01/18/17 at 09:00 Folic Acid (Folic Acid) 1 mg DAILY PO Last administered on 01/19/17 08:30; Admin Dose 1 MG; Start 01/18/17 at 09:00 Pregabalin (Lyrica) 50 mg BID PO Last administered on 01/19/17 08:35; Admin Dose 50 MG; Start 01/18/17 at 09:00 Ropinirole HCl (Requip) 0.25 mg HS PO Last administered on 01/18/17 22:04; Admin Dose 0.25 MG; Start 01/18/17 at 21:00 Tamsulosin HCl (Flomax) 0.4 mg HS PO Last administered on 01/18/17 20:39; Admin Dose 0.4 MG; Start 01/18/17 at 21:00 Atorvastatin Calcium (Lipitor) 5 mg QHS PO Last administered on 01/18/17 20:39 ; Admin Dose 5 MG; Start 01/18/17 at 21:00 Risperidone (Risperdal) 2 mg BID PO Last administered on 01/19/17 08:30; Admin Dose 2 MG; Start 01/18/17 at 00:30 Hydromorphone HCl (Dilaudid) 0.5 mg Q4H PRN IV PAIN; Start 01/18/17 at 00:30 Morphine Sulfate (morphine) 4 mg Q4H PRN IV pain Last administered on 19:03; Admin Dose 4 MG; Start 01/18/17 at 14:00 Polyethylene Glycol (Miralax) 17 gm DAILY PO Last administered on 01/19/17 08: 30; Admin Dose 17 GM; Start 01/19/17 at 09:00 Docusate Sodium 250 mg 250 mg DAILY PO Last administered on 01/19/17 08:30; Admin Dose 250 MG; Start 01/19/17 at 09:00 Sodium Chloride (NS) 1,000 ml @ 100 mls/hr Q10H IV Last administered on 07:30; Admin Dose 100 MLS/HR; Start 01/18/17 at 14:30 Oxycodone HCl (Oxycontin) 10 mg BID PO Last administered on 01/19/17 09:21; Admin Dose 10 MG; Start 01/18/17 at 14:23 Sodium Hypochlorite 1 applic 1 applic BID IRR Last administered on 01/19/17 08 :29; Admin Dose 1 APPLIC; Start 01/18/17 at 21:00 Piperacillin Sod/ Tazobactam Sod 50 ml @ 200 mls/hr Q6 IVPB Last administered on 01/19/17 12:12; Admin Dose 200 MLS/HR; Start 01/18/17 at 19:00 Vancomycin HCl/ Sodium Chloride (Vancocin/NS) 250 ml @ 83.333 mls/ hr ONCE ONCE IVPB Last administered on 7/13/17at 12:18; Admin Dose 83.333 MLS/HR; Start 01/19/17 at 12:00; Stop 01/19/17 at 14:59 LORI ROBLERO NP Jan 19, 2017 12:47
[2017-01-19] MEDS: ATORVASTATIN 10 MG TAB PO SCH (21:02)
[2017-01-19] MEDS: ROPINIROLE 0.25 MG TAB PO SCH (21:02)
[2017-01-19] MEDS: TAMSULOSIN (SR) 0.4 MG CAP PO SCH (21:03)
[2017-01-20] VITALS (9 sets, daily range): BP systolic 104–140; BP diastolic 53–84; PULSE 69–92; RESP 17–18
[2017-01-20] MEDS: SOD CHLORIDE 0.9% 1,000 ML IV SCH ×2 (02:20→13:34)
[2017-01-20] MEDS: PIPER-TAZO 2.25 GM (PMX) 50 ML IVPB SCH (05:49)
[2017-01-20 08:02] LABS: ADD SCAN DIFF NO
[2017-01-20 08:22] LABS: ABNORMAL IP MESSAGE 1; BASOPHILS % 0.2 % (0.0-2.0); EOSINOPHILS % 0.9 % (0.0-7.0); HEMOGLOBIN 9.4 g/dl (14.0-18.0); LYMPHOCYTES # 0.5 10^3/ul (0.8-2.9); LYMPHOCYTES % 11.4 % (15.0-51.0); MEAN CORPUSCULAR HEMOGLOBIN 30.4 pg (29.0-33.0); MEAN CORPUSCULAR HGB CONC 31.3 g/dl (32.0-37.0); MEAN CORPUSCULAR VOLUME 97.1 fl (82.0-101.0); MEAN PLATELET VOLUME 10.4 fl (7.4-10.4); MONOCYTE # 0.3 10^3/ul (0.3-0.9); MONOCYTES % 5.7 % (0.0-11.0); NEUTROPHIL # 3.6 10^3/ul (1.6-7.5); NEUTROPHILS % 81.3 % (39.0-77.0); PLATELET COUNT 123 10^3/UL (140-415); RED BLOOD COUNT 3.09 10^6/ul (4.70-6.10); RED CELL DISTRIBUTION WIDTH 15.6 % (11.5-14.5); WHITE BLOOD COUNT 4.4 10^3/ul (4.8-10.8)
[2017-01-20 08:39] LABS: IRON 19 ug/dl (35-150)
[2017-01-20] MEDS: DULOXETINE 30 MG CAP DR PO SCH (08:41)
[2017-01-20] MEDS: SODIUM HYPOCHLORITE 0.125% 473 ML BTL IRR SCH ×3 (08:41→21:00)
[2017-01-20 08:42] LABS: ALBUMIN 2.9 g/dl (3.3-4.9); ALBUMIN/GLOBULIN RATIO 0.9; BILIRUBIN,INDIRECT 0.2 mg/dl (0-1.1); BILIRUBIN,TOTAL 0.2 mg/dl (0.2-1.3); CALCIUM 8.1 mg/dl (8.4-10.2); CREATININE 1.98 mg/dl (0.61-1.24); POTASSIUM 3.5 mmol/L (3.5-5.1); TOTAL PROTEIN 6.1 g/dl (6.1-8.1)
[2017-01-20] MEDS: oxyCODONE (CR) 10 MG TAB [oxyCONTIN] PO SCH ×2 (08:42→21:08)
[2017-01-20] MEDS: ARIPIPRAZOLE 5 MG TAB PO SCH (08:42)
[2017-01-20] MEDS: ASPIRIN (EC) 81 MG TAB PO SCH (08:42)
[2017-01-20] MEDS: BUSPIRONE 10 MG TAB PO SCH ×3 (08:42→21:08)
[2017-01-20] MEDS: RISPERIDONE 2 MG TAB PO SCH ×2 (08:42→21:08)
[2017-01-20] MEDS: DOCUSATE SODIUM 250 MG CAP PO SCH (08:42)
[2017-01-20] MEDS: FOLIC ACID 1 MG TAB PO SCH (08:42)
[2017-01-20] MEDS: PREGABALIN 25 MG CAP PO SCH ×2 (08:42→21:09)
[2017-01-20] MEDS: morphine 4 MG/ML VIAL IV PRN ×3 (08:45→17:44)
[2017-01-20 08:48] LABS: TOTAL IRON BINDING CAPACITY 176 ug/dl (241-421)
[2017-01-20] MEDS: POLYETHYLENE GLYCOL 17 GM PACKET PO SCH (08:52)
--- NOTE | 2017-01-20 09:07 | PN ---
Date/Time of Note Date/Time of Note DATE: 01/20/17 TIME: 09:05 Assessment/Plan VTE Prophylaxis VTE Prophylaxis Intervention: SCD's Lines/Catheters IV Catheter Type (from Nrsg): Peripheral IV Assessment/Plan Assessment/Plan 66 yo M who presented with severe pain with defecation and buttock cellulitis sent from PMD's office: #1 Cellulitis and ulceration of the buttocks region: #2 Enterobacter Urinary tract infection Likely associated with #4 #3 Mental health/possible schizophrenia #4 Hx of BPH with USS findings of mild urinary retention and renal cysts: * retention may be associated with chronic opioid use #5 Degenerative joint disease with Chronic back pain and hx of back:, #6 Hyponatremia: 2/2 dehydration? #7 ILYA r/o CKD, ?Combination of Pre and post renal : improving slowly #8 Hepatitis C associated chronic liver disease with Pancytopenia , mild coagulopathy, and elevated transaminases. #9 Iron deficiency with Pancytopenia : 5 day IV iron therapy PLAN: * Continue abx / supportive care / PT / pain control * Debridement when scheduled by surgery. * Casemgt notified to begin preparation for possible wound vac + placement * Continue bowel regimen and wound care * continue supportive care / PT eval DVT and GI prophylaxis: SCD, Protonix Subjective 24 Hr Interval Summary Free Text/Dictation No new issues, still reporting pain in buttock Exam/Review of Systems Vital Signs Vitals Vital Signs Date Time Temp Pulse Resp B/P Pulse Ox O2 Delivery O2 Flow Rate FiO2 01/20/17 08:00 74 01/20/17 07:16 98.3 18 104/59 96 01/19/17 05:30 Room Air Intake and Output 01/19/17 01/19/17 01/20/17 15:00 23:00 07:00 Intake Total 800 ml 520 ml Output Total 2700 ml 800 ml Balance -1900 ml -280 ml Exam Constitutional: alert, other (chronically ill looking) Head: normocephalic ENMT: other (?tardive dyskinesia), No nl lips & teeth (no dentition) Neck: supple Respiratory: clear to auscultation Cardiovascular: regular rate and rhythm, No murmurs/extra sounds Gastrointestinal: bowel sounds, non-tender, soft Extremities: No edema Neurological: No focal weakness Results Result Diagram: 01/20/17 0652 01/20/17 0652 Results 24 hrs Laboratory Tests Test 01/20/17 06:52 01/20/17 08:03 White Blood Count 4.4 #L Red Blood Count 3.09 #L Hemoglobin 9.4 #L Hematocrit 30.0 #L Mean Corpuscular Volume 97.1 Mean Corpuscular Hemoglobin 30.4 Mean Corpuscular Hemoglobin Concent 31.3 L Red Cell Distribution Width 15.6 H Platelet Count 123 #L Mean Platelet Volume 10.4 Neutrophils % 81.3 H Lymphocytes % 11.4 L Monocytes % 5.7 Eosinophils % 0.9 Basophils % 0.2 Nucleated Red Blood Cells % 0.0 Neutrophils # 3.6 Lymphocytes # 0.5 L Monocytes # 0.3 Eosinophils # 0.0 Basophils # 0.0 Nucleated Red Blood Cells # 0.0 Sodium Level 132 L Potassium Level 3.5 Chloride Level 108 Carbon Dioxide Level 21 Anion Gap 7 L Blood Urea Nitrogen 21 H Creatinine 1.98 H Glucose Level 99 Calcium Level 8.1 L Iron Level 19 L Total Iron Binding Capacity Pending Percent Iron Saturation Pending Total Bilirubin 0.2 Direct Bilirubin 0.00 Indirect Bilirubin 0.2 Aspartate Amino Transf (AST/SGOT) 58 H Alanine Aminotransferase (ALT/SGPT) 45 Alkaline Phosphatase 60 Total Protein 6.1 Albumin 2.9 L Globulin 3.20 Albumin/Globulin Ratio 0.90 Lab Scanned Report BLOOD TRANSFUSION Medications Medications Current Medications Aripiprazole (Abilify) 5 mg DAILY PO Last administered on 01/20/17 08:42; Admin Dose 5 MG; Start 01/18/17 at 09:00 Aspirin (Halfprin) 81 mg DAILY PO Last administered on 01/20/17 08:42; Admin Dose 81 MG; Start 01/18/17 at 09:00 Buspirone HCl (Buspar) 10 mg TID PO Last administered on 01/20/17 08:42; Admin Dose 10 MG; Start 01/18/17 at 09:00 Clonazepam (Klonopin) 1 mg BID PRN PO ANXIETY Last administered on 01/18/17 11 :20; Admin Dose 1 MG; Start 01/18/17 at 00:30 Duloxetine HCl (Cymbalta) 120 mg DAILY PO Last administered on 01/20/17 08:41 ; Admin Dose 120 MG; Start 01/18/17 at 09:00 Folic Acid (Folic Acid) 1 mg DAILY PO Last administered on 01/20/17 08:42; Admin Dose 1 MG; Start 01/18/17 at 09:00 Pregabalin (Lyrica) 50 mg BID PO Last administered on 01/20/17 08:42; Admin Dose 50 MG; Start 01/18/17 at 09:00 Ropinirole HCl (Requip) 0.25 mg HS PO Last administered on 01/19/17 21:02; Admin Dose 0.25 MG; Start 01/18/17 at 21:00 Tamsulosin HCl (Flomax) 0.4 mg HS PO Last administered on 01/19/17 21:03; Admin Dose 0.4 MG; Start 01/18/17 at 21:00 Atorvastatin Calcium (Lipitor) 5 mg QHS PO Last administered on 01/19/17 21:02 ; Admin Dose 5 MG; Start 01/18/17 at 21:00 Risperidone (Risperdal) 2 mg BID PO Last administered on 01/20/17 08:42; Admin Dose 2 MG; Start 01/18/17 at 00:30 Hydromorphone HCl (Dilaudid) 0.5 mg Q4H PRN IV PAIN; Start 01/18/17 at 00:30 Morphine Sulfate (morphine) 4 mg Q4H PRN IV pain Last administered on 08:45; Admin Dose 4 MG; Start 01/18/17 at 14:00 Polyethylene Glycol (Miralax) 17 gm DAILY PO Last administered on 01/19/17 08: 30; Admin Dose 17 GM; Start 01/19/17 at 09:00 Docusate Sodium 250 mg 250 mg DAILY PO Last administered on 01/20/17 08:42; Admin Dose 250 MG; Start 01/19/17 at 09:00 Sodium Chloride (NS) 1,000 ml @ 100 mls/hr Q10H IV Last administered on 02:20; Admin Dose 100 MLS/HR; Start 01/18/17 at 14:30 Oxycodone HCl (Oxycontin) 10 mg BID PO Last administered on 01/20/17 08:42; Admin Dose 10 MG; Start 01/18/17 at 14:23 Sodium Hypochlorite 1 applic 1 applic BID IRR Last administered on 7/14/17at 08 :41; Admin Dose 1 APPLIC; Start 01/18/17 at 21:00 Vancomycin HCl 750 mg/Sodium Chloride 150 ml @ 75 mls/hr Q24H IVPB ; Start at 00:00 Piperacillin Sod/ Tazobactam Sod (Zosyn 3.375gm/ 100 ml (Pmx)) 100 ml @ 25 mls/ hr TID@06,14,22 IVPB ; Start 01/20/17 at 14:00 SRIKANTH GARCIA Jan 20, 2017 09:07
--- NOTE | 2017-01-20 10:27 | PN ---
Date/Time of Note Date/Time of Note DATE: 01/20/17 TIME: 10:19 Assessment/Plan Lines/Catheters IV Catheter Type (from Nrsg): Peripheral IV Assessment/Plan Chief Complaint/Hosp Course 1. Sacral wound: with slough and necrotic area in wound bed, periwound reddened -sacral wound debridement -local care -frequent turning and repositioning -specialty bed -nutrition optimization 2. Sacral cellulitis: 2/2 above: CT: cellulitis surrounding an ulceration which extends into the subcutaneous fat abutting the dorsal surface of the coccyx without evidence of an associated subcutaneous abscess or osteomyelitis;afebrile -as above -abx 3. Leukocytopenia: likely 2/2 above improving -supportive -as above 4. Normocytic anemia: no acute bleed noted:s/p PRBC transfusion 01/19; improved -monitor -transfuse as needed 5. Thrombocytopenia 2/2 #2; improved -bleeding precautions -supportive 6. Hyponatremia: stable -judicious fluid management 7.ILYA: bilateral hydronephrosis with bilateral renal cyst; cr improving -judicious fluid management avoid nephrotoxic meds -renal dosing for meds 8. Hypocalcemia with hypoalbuminemia: likely 2/2 malnutrition -nutrition optimization -optimize lytes 9. UTI: urine cx: enterobacter cloacae; afebrile -abx per sensitivity Patient seen and examined in collaboration with Dr. El Root Problems: Subjective 24 Hr Interval Summary Low back pain. S/p PRBC's transfusion yesterday. No fevers, chills, sob, cp, palpitations, n/v/d, gore, dizziness, sz, dysuria. + flatus Exam/Review of Systems Vital Signs Vitals Vital Signs Date Time Temp Pulse Resp B/P Pulse Ox O2 Delivery O2 Flow Rate FiO2 01/20/17 08:00 74 01/20/17 07:16 98.3 18 104/59 96 01/19/17 05:30 Room Air Intake and Output 01/19/17 01/19/17 01/20/17 15:00 23:00 07:00 Intake Total 800 ml 520 ml Output Total 2700 ml 800 ml Balance -1900 ml -280 ml Exam Free Text/Dictation Constitutional: alert, oriented Psych: anxiety Head: atraumatic, normocephalic Eyes: PERRL, nl lids, nl sclera ENMT: mucosa pink and moist, nl nasal mucosa & septum Neck: non-tender, supple Respiratory: normal air movement Cardiovascular: nl pulses, regular rate and rhythm Gastrointestinal: non-tender, soft Musculoskeletal: nl extremities to inspection Extremities: normal pulses Neurological: nl speech, nl strength Skin: other (sacral wound with slough and necrotic tissue, periwound erythema) Lymph: nl lymph nodes Results Result Diagram: 01/20/17 0652 01/20/17 0652 DORINA LITTLEJOHN NP Jan 20, 2017 10:27
[2017-01-20] MEDS: PIPER-TAZO 3.375 GM IV (PMX) 100 ML IVPB SCH ×2 (13:34→22:09)
[2017-01-20] MEDS: ZINC SULFATE 220 MG CAP PO SCH (13:34)
--- NOTE | 2017-01-20 14:39 | CONS ---
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 Head atraumatic normocephalic, sclera nonicteric. Neck is supple trachea midline. Chest rise symmetrical breath sounds clear bilaterally. No shortness of breath. Heart: S1, S2. Abdomen soft, bowel tones present. Extremities no cyanosis. Skin was unstageable sacral wound. Assessment: 1. Unstageable sacral wound 2. Urinary tract infection 3. Acute on chronic anemia 4. Acute renal failure possible chronic kidney disease 5. History of hepatitis C virus Plan: Stable, continue antibiotics, local wound care per surgical recommendations . Discussed with RN Problems: Consultation Date/Type/Reason Admit Date/Time Jan 17, 2017 at 21:06 Initial Consult Date 01/19/17 Type of Consultation: id Exam/Review of Systems Vital Signs Vitals Vital Signs Date Time Temp Pulse Resp B/P Pulse Ox O2 Delivery O2 Flow Rate FiO2 01/20/17 12:00 92 01/20/17 11:30 98.3 18 106/59 96 01/19/17 05:30 Room Air Intake and Output 01/19/17 01/19/17 01/20/17 15:00 23:00 07:00 Intake Total 800 ml 520 ml Output Total 2700 ml 800 ml Balance -1900 ml -280 ml Results Result Diagram: 01/20/17 0652 01/20/17 0652 Results 24 hrs Laboratory Tests Test 01/20/17 06:52 01/20/17 08:03 White Blood Count 4.4 #L Red Blood Count 3.09 #L Hemoglobin 9.4 #L Hematocrit 30.0 #L Mean Corpuscular Volume 97.1 Mean Corpuscular Hemoglobin 30.4 Mean Corpuscular Hemoglobin Concent 31.3 L Red Cell Distribution Width 15.6 H Platelet Count 123 #L Mean Platelet Volume 10.4 Neutrophils % 81.3 H Lymphocytes % 11.4 L Monocytes % 5.7 Eosinophils % 0.9 Basophils % 0.2 Nucleated Red Blood Cells % 0.0 Neutrophils # 3.6 Lymphocytes # 0.5 L Monocytes # 0.3 Eosinophils # 0.0 Basophils # 0.0 Nucleated Red Blood Cells # 0.0 Sodium Level 132 L Potassium Level 3.5 Chloride Level 108 Carbon Dioxide Level 21 Anion Gap 7 L Blood Urea Nitrogen 21 H Creatinine 1.98 H Glucose Level 99 Calcium Level 8.1 L Iron Level 19 L Total Iron Binding Capacity 176 L Percent Iron Saturation 11 L Total Bilirubin 0.2 Direct Bilirubin 0.00 Indirect Bilirubin 0.2 Aspartate Amino Transf (AST/SGOT) 58 H Alanine Aminotransferase (ALT/SGPT) 45 Alkaline Phosphatase 60 Total Protein 6.1 Albumin 2.9 L Globulin 3.20 Albumin/Globulin Ratio 0.90 Lab Scanned Report BLOOD TRANSFUSION Medications Medications Current Medications Aripiprazole (Abilify) 5 mg DAILY PO Last administered on 01/20/17 08:42; Admin Dose 5 MG; Start 01/18/17 at 09:00 Aspirin (Halfprin) 81 mg DAILY PO Last administered on 01/20/17 08:42; Admin Dose 81 MG; Start 01/18/17 at 09:00 Buspirone HCl (Buspar) 10 mg TID PO Last administered on 01/20/17 13:34; Admin Dose 10 MG; Start 01/18/17 at 09:00 Clonazepam (Klonopin) 1 mg BID PRN PO ANXIETY Last administered on 01/18/17 11 :20; Admin Dose 1 MG; Start 01/18/17 at 00:30 Duloxetine HCl (Cymbalta) 120 mg DAILY PO Last administered on 01/20/17 08:41 ; Admin Dose 120 MG; Start 01/18/17 at 09:00 Folic Acid (Folic Acid) 1 mg DAILY PO Last administered on 01/20/17 08:42; Admin Dose 1 MG; Start 01/18/17 at 09:00 Pregabalin (Lyrica) 50 mg BID PO Last administered on 01/20/17 08:42; Admin Dose 50 MG; Start 01/18/17 at 09:00 Ropinirole HCl (Requip) 0.25 mg HS PO Last administered on 01/19/17 21:02; Admin Dose 0.25 MG; Start 01/18/17 at 21:00 Tamsulosin HCl (Flomax) 0.4 mg HS PO Last administered on 01/19/17 21:03; Admin Dose 0.4 MG; Start 01/18/17 at 21:00 Atorvastatin Calcium (Lipitor) 5 mg QHS PO Last administered on 01/19/17 21:02 ; Admin Dose 5 MG; Start 01/18/17 at 21:00 Risperidone (Risperdal) 2 mg BID PO Last administered on 01/20/17 08:42; Admin Dose 2 MG; Start 01/18/17 at 00:30 Hydromorphone HCl (Dilaudid) 0.5 mg Q4H PRN IV PAIN; Start 01/18/17 at 00:30 Morphine Sulfate (morphine) 4 mg Q4H PRN IV pain Last administered on 13:36; Admin Dose 4 MG; Start 01/18/17 at 14:00 Docusate Sodium 250 mg 250 mg DAILY PO Last administered on 01/20/17 08:42; Admin Dose 250 MG; Start 01/19/17 at 09:00 Sodium Chloride (NS) 1,000 ml @ 100 mls/hr Q10H IV Last administered on 13:34; Admin Dose 100 MLS/HR; Start 01/18/17 at 14:30 Oxycodone HCl (Oxycontin) 10 mg BID PO Last administered on 01/20/17 08:42; Admin Dose 10 MG; Start 01/18/17 at 14:23 Sodium Hypochlorite 1 applic 1 applic BID IRR Last administered on 01/19/17 08 :29; Admin Dose 1 APPLIC; Start 01/18/17 at 21:00 Vancomycin HCl 750 mg/Sodium Chloride 150 ml @ 75 mls/hr Q24H IVPB ; Start at 00:00 Piperacillin Sod/ Tazobactam Sod 100 ml @ 25 mls/hr TID@06,14,22 IVPB Last administered on 01/20/17 13:34; Admin Dose 25 MLS/HR; Start 01/20/17 at 14:00 Ferric Sodium Gluconate Complex/ Sodium Chloride (Ferrlecit/NS) 110 ml @ 110 mls/hr Q24H IVPB ; Start 01/20/17 at 15:30; Stop 01/24/17 at 16:29 Zinc Sulfate (Zinc Sulfate) 220 mg DAILY PO Last administered on 01/20/17 13: 34; Admin Dose 220 MG; Start 01/20/17 at 13:00 Polyethylene Glycol (Miralax) 8.5 gm DAILY PO ; Start 01/21/17 at 09:00 LORI ROBLERO NP Jan 20, 2017 14:39
[2017-01-20] MEDS: SOD FERRIC GLUC COMPLX 125 MG in SOD CHLORIDE 0.9% 100 ML IVPB SCH (15:46)
[2017-01-20] MEDS ORDERED: PIPER-TAZO 3.375 GM IV (PMX) 100 ML IVPB SCH (18:00)
[2017-01-20] MEDS: TAMSULOSIN (SR) 0.4 MG CAP PO SCH (21:09)
[2017-01-20] MEDS: ATORVASTATIN 10 MG TAB PO SCH (21:11)
[2017-01-20] MEDS: ROPINIROLE 0.25 MG TAB PO SCH (21:14)
[2017-01-21] VITALS (7 sets, daily range): BP systolic 112–146; BP diastolic 64–76; PULSE 80; RESP 16–18
[2017-01-21] MEDS: VANCOMYCIN 750 MG in SOD CHLORIDE 0.9% 150 ML IVPB SCH (00:16)
[2017-01-21] MEDS ORDERED: ALBUTEROL/IPRATROPIUM (NEB) 3 ML AMP HHN PRN (00:30)
[2017-01-21] MEDS: SOD CHLORIDE 0.9% 1,000 ML IV SCH ×3 (02:30→22:42)
[2017-01-21] MEDS: PIPER-TAZO 3.375 GM IV (PMX) 100 ML IVPB SCH ×3 (05:35→22:43)
[2017-01-21 06:26] LABS: ADD SCAN DIFF NO
[2017-01-21 06:29] LABS: BASOPHILS % 0.2 % (0.0-2.0); HEMATOCRIT 30.1 % (42.0-52.0); HEMOGLOBIN 9.4 g/dl (14.0-18.0); LYMPHOCYTES # 0.7 10^3/ul (0.8-2.9); LYMPHOCYTES % 16.9 % (15.0-51.0); MEAN CORPUSCULAR HEMOGLOBIN 30.6 pg (29.0-33.0); MEAN CORPUSCULAR HGB CONC 31.2 g/dl (32.0-37.0); MONOCYTE # 0.3 10^3/ul (0.3-0.9); MONOCYTES % 7.5 % (0.0-11.0); NEUTROPHIL # 3.1 10^3/ul (1.6-7.5); NEUTROPHILS % 73.9 % (39.0-77.0); PLATELET COUNT 129 10^3/UL (140-415); RED BLOOD COUNT 3.07 10^6/ul (4.70-6.10); RED CELL DISTRIBUTION WIDTH 15.5 % (11.5-14.5); WHITE BLOOD COUNT 4.1 10^3/ul (4.8-10.8)
[2017-01-21 07:05] LABS: CALCIUM 7.8 mg/dl (8.4-10.2); CREATININE 1.97 mg/dl (0.61-1.24); POTASSIUM 3.9 mmol/L (3.5-5.1)
[2017-01-21] MEDS: DOCUSATE SODIUM 250 MG CAP PO SCH (08:02)
[2017-01-21] MEDS: ASPIRIN (EC) 81 MG TAB PO SCH (08:02)
[2017-01-21] MEDS: ZINC SULFATE 220 MG CAP PO SCH (08:02)
[2017-01-21] MEDS: RISPERIDONE 2 MG TAB PO SCH ×2 (08:02→21:02)
[2017-01-21] MEDS: FOLIC ACID 1 MG TAB PO SCH (08:02)
[2017-01-21] MEDS: BUSPIRONE 10 MG TAB PO SCH ×3 (08:02→21:01)
[2017-01-21] MEDS: oxyCODONE (CR) 10 MG TAB [oxyCONTIN] PO SCH ×2 (08:02→21:02)
[2017-01-21] MEDS: ARIPIPRAZOLE 5 MG TAB PO SCH (08:02)
[2017-01-21] MEDS: DULOXETINE 30 MG CAP DR PO SCH (08:02)
[2017-01-21] MEDS: POLYETHYLENE GLYCOL 17 GM PACKET PO SCH (08:03)
[2017-01-21] MEDS: SODIUM HYPOCHLORITE 0.125% 473 ML BTL IRR SCH ×3 (08:03→21:01)
[2017-01-21] MEDS: PREGABALIN 25 MG CAP PO SCH ×2 (08:03→21:02)
[2017-01-21] MEDS: morphine 4 MG/ML VIAL IV PRN ×3 (09:40→22:43)
[2017-01-21] MEDS: HYDROmorphONE 1 MG/ML SYG IV PRN ×2 (11:45→15:40)
--- NOTE | 2017-01-21 14:22 | PN ---
Date/Time of Note Date/Time of Note DATE: 01/21/17 TIME: 14:15 Assessment/Plan Lines/Catheters IV Catheter Type (from Nrs): Peripheral IV Assessment/Plan Chief Complaint/Hosp Course 1. Sacral wound: with slough and necrotic area in wound bed, periwound reddened -sacral wound debridement -local care -frequent turning and repositioning -specialty bed -nutrition optimization 2. Sacral cellulitis: 2/2 above: CT: cellulitis surrounding an ulceration which extends into the subcutaneous fat abutting the dorsal surface of the coccyx without evidence of an associated subcutaneous abscess or osteomyelitis;afebrile ; periwound erythema improving -as above -abx 3. Leukocytopenia: likely 2/2 above unchanged -supportive -as above 4. Normocytic anemia: no acute bleed noted:s/p PRBC transfusion 01/19; stable -monitor -transfuse as needed 5. Thrombocytopenia 2/2 #2; improved -bleeding precautions -supportive 6. Hyponatremia: now with hypernatremia -judicious fluid management 7.ILYA: bilateral hydronephrosis with bilateral renal cyst; cr stable -judicious fluid management avoid nephrotoxic meds -renal dosing for meds 8. Hypocalcemia with hypoalbuminemia: likely 2/2 malnutrition -nutrition optimization -optimize lytes 9. UTI: urine cx: enterobacter cloacae; afebrile -abx per sensitivity Patient seen and examined in collaboration with Dr. El Root Problems: Subjective 24 Hr Interval Summary Low back pain improved. No fevers, chills, sob, cp, palpitations, n/v/d, gore, dizziness, sz, dysuria. + flatus Exam/Review of Systems Vital Signs Vitals Vital Signs Date Time Temp Pulse Resp B/P Pulse Ox O2 Delivery O2 Flow Rate FiO2 01/21/17 12:24 98.1 79 18 128/64 99 01/19/17 05:30 Room Air Intake and Output 01/20/17 01/20/17 01/21/17 15:00 23:00 07:00 Intake Total 1400 ml 960 ml Output Total 1600 ml 800 ml Balance -200 ml 160 ml Exam Free Text/Dictation Constitutional: alert, oriented Psych: normal mood Head: atraumatic, normocephalic Eyes: PERRL, nl lids, nl sclera ENMT: mucosa pink and moist, nl nasal mucosa & septum Neck: non-tender, supple Respiratory: normal air movement Cardiovascular: nl pulses, regular rate and rhythm Gastrointestinal: non-tender, soft Musculoskeletal: nl extremities to inspection Extremities: normal pulses Neurological: nl speech, nl strength Skin: other (sacral wound with slough and necrotic tissue, periwound erythema improved) Lymph: nl lymph nodes Results Result Diagram: 01/21/17 0605 01/21/17 0607 DORINA LITTLEJOHN NP Jan 21, 2017 14:22
[2017-01-21] MEDS: clonAZEPAM 0.5 MG TAB PO PRN (15:40)
--- NOTE | 2017-01-21 15:43 | CONS ---
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 SIRS -> low grade fevers, leukocytosis, tachycardia present on admission due to GNR Pyelonephritis + Unstageable sacral wound * Blood Cx (-) to date 2. Unstageable sacral wound * CT: There is cellulitis surrounding an ulceration which extends into the subcutaneous fat abutting the dorsal surface of the coccyx without evidence of an associated subcutaneous abscess or osteomyelitis. 3. Acute Pyelonephritis due to complicated UTI ? obstructive uropathy vs urinary retention ? * 01/18 Renal SUNNY: Mild bilateral hydronephrosis. Mildly distended urinary bladder with dependent debris in the lumen. * MICRO: (+)ENTEROBACTER CLOACAE => DEVELOPS RESISTANCE TO CEPHALOSPORINS QUICKLY 4. Acute renal failure possible chronic kidney disease 5. Acute on chronic anemia History of hepatitis C virus 6. Interval clearing of previously noted right lower lobe pneumonia 7. Hx of CAD - stable 8. Severe lumbosacral DJD/DDD w/hx of Posterior spinal fusion from L4-S1 with evidence of bilateral L5 laminectomy. * CT: (+)Severe disk space narrowing at L5-S1 with bilateral bony nerve root canal stenosis and bilateral degenerative facet arthropathy at L5-S1. 9. Hx of Old healed internally fixated fracture to the neck of the proximal left femur. 10. Chronic debility/chronic pain/limited mobility issues due to #8 ?MRSA Nares INVASIVES: * PIV ABX ALLERGIES: KNDA CURRENT ABX: DAY # 4 => Vanco IV + Zosyn ID RECOMMENDATIONS: 1. Continue current ABX and Local wound care = anticipate total 14 day course 2. May Transfer to SNF on IV ABX when cleared by primary to complete 14 days . . Problems: Consultation Date/Type/Reason Admit Date/Time Jan 17, 2017 at 21:06 Initial Consult Date 01/19/17 Type of Consultation: id Exam/Review of Systems Vital Signs Vitals Vital Signs Date Time Temp Pulse Resp B/P Pulse Ox O2 Delivery O2 Flow Rate FiO2 01/21/17 12:24 98.1 79 18 128/64 99 01/19/17 05:30 Room Air Intake and Output 01/20/17 01/20/17 01/21/17 15:00 23:00 07:00 Intake Total 1400 ml 960 ml Output Total 1600 ml 800 ml Balance -200 ml 160 ml Results Result Diagram: 01/21/17 0605 01/21/17 0607 Results 24 hrs Laboratory Tests Test 01/21/17 06:05 01/21/17 06:07 White Blood Count 4.1 L Red Blood Count 3.07 L Hemoglobin 9.4 L Hematocrit 30.1 L Mean Corpuscular Volume 98.0 Mean Corpuscular Hemoglobin 30.6 Mean Corpuscular Hemoglobin Concent 31.2 L Red Cell Distribution Width 15.5 H Platelet Count 129 L Mean Platelet Volume 10.0 Neutrophils % 73.9 Lymphocytes % 16.9 Monocytes % 7.5 Eosinophils % 1.0 Basophils % 0.2 Nucleated Red Blood Cells % 0.0 Neutrophils # 3.1 Lymphocytes # 0.7 L Monocytes # 0.3 Eosinophils # 0.0 Basophils # 0.0 Nucleated Red Blood Cells # 0.0 Sodium Level 146 H Potassium Level 3.9 Chloride Level 114 H Carbon Dioxide Level 19 L Anion Gap 17 H Blood Urea Nitrogen 15 Creatinine 1.97 H Glucose Level 100 Calcium Level 7.8 L Medications Medications Current Medications Aripiprazole (Abilify) 5 mg DAILY PO Last administered on 01/21/17 08:02; Admin Dose 5 MG; Start 01/18/17 at 09:00 Aspirin (Halfprin) 81 mg DAILY PO Last administered on 01/21/17 08:02; Admin Dose 81 MG; Start 01/18/17 at 09:00 Buspirone HCl (Buspar) 10 mg TID PO Last administered on 01/21/17 13:26; Admin Dose 10 MG; Start 01/18/17 at 09:00 Clonazepam (Klonopin) 1 mg BID PRN PO ANXIETY Last administered on 01/18/17 11 :20; Admin Dose 1 MG; Start 01/18/17 at 00:30 Duloxetine HCl (Cymbalta) 120 mg DAILY PO Last administered on 01/21/17 08:02 ; Admin Dose 120 MG; Start 01/18/17 at 09:00 Folic Acid (Folic Acid) 1 mg DAILY PO Last administered on 01/21/17 08:02; Admin Dose 1 MG; Start 01/18/17 at 09:00 Pregabalin (Lyrica) 50 mg BID PO Last administered on 01/21/17 08:03; Admin Dose 50 MG; Start 01/18/17 at 09:00 Ropinirole HCl (Requip) 0.25 mg HS PO Last administered on 01/20/17 21:14; Admin Dose 0.25 MG; Start 01/18/17 at 21:00 Tamsulosin HCl (Flomax) 0.4 mg HS PO Last administered on 01/20/17 21:09; Admin Dose 0.4 MG; Start 01/18/17 at 21:00 Atorvastatin Calcium (Lipitor) 5 mg QHS PO Last administered on 01/20/17 21:11 ; Admin Dose 5 MG; Start 01/18/17 at 21:00 Risperidone (Risperdal) 2 mg BID PO Last administered on 01/21/17 08:02; Admin Dose 2 MG; Start 01/18/17 at 00:30 Hydromorphone HCl (Dilaudid) 0.5 mg Q4H PRN IV PAIN Last administered on 11:45; Admin Dose 0.5 MG; Start 01/18/17 at 00:30 Morphine Sulfate (morphine) 4 mg Q4H PRN IV pain Last administered on 09:40; Admin Dose 4 MG; Start 01/18/17 at 14:00 Docusate Sodium 250 mg 250 mg DAILY PO Last administered on 01/21/17 08:02; Admin Dose 250 MG; Start 01/19/17 at 09:00 Sodium Chloride (NS) 1,000 ml @ 100 mls/hr Q10H IV Last administered on 13:34; Admin Dose 100 MLS/HR; Start 01/18/17 at 14:30 Oxycodone HCl (Oxycontin) 10 mg BID PO Last administered on 01/21/17 08:02; Admin Dose 10 MG; Start 01/18/17 at 14:23 Sodium Hypochlorite 1 applic 1 applic BID IRR Last administered on 01/21/17 12 :32; Admin Dose 1 APPLIC; Start 01/18/17 at 21:00 Vancomycin HCl 750 mg/Sodium Chloride 150 ml @ 75 mls/hr Q24H IVPB Last administered on 01/21/17 00:16; Admin Dose 75 MLS/HR; Start 01/21/17 at 00:00 Piperacillin Sod/ Tazobactam Sod 100 ml @ 25 mls/hr TID@06,14,22 IVPB Last administered on 01/21/17 05:35; Admin Dose 25 MLS/HR; Start 01/20/17 at 14:00 Ferric Sodium Gluconate Complex/ Sodium Chloride (Ferrlecit/NS) 110 ml @ 110 mls/hr Q24H IVPB Last administered on 01/20/17 15:46; Admin Dose 110 MLS/HR; Start 01/20/17 at 15:30; Stop 01/24/17 at 16:29 Zinc Sulfate (Zinc Sulfate) 220 mg DAILY PO Last administered on 01/21/17 08: 02; Admin Dose 220 MG; Start 01/20/17 at 13:00 Polyethylene Glycol (Miralax) 8.5 gm DAILY PO ; Start 01/21/17 at 09:00 IMELDA HAND NP Jan 21, 2017 15:41
[2017-01-21] MEDS: TAMSULOSIN (SR) 0.4 MG CAP PO SCH (21:01)
[2017-01-21] MEDS: ROPINIROLE 0.25 MG TAB PO SCH (21:02)
[2017-01-21] MEDS: ATORVASTATIN 10 MG TAB PO SCH (21:02)
[2017-01-21] MEDS: SOD FERRIC GLUC COMPLX 125 MG in SOD CHLORIDE 0.9% 100 ML IVPB SCH ×2 (21:07→21:15)
[2017-01-21] MEDS: ZOLPIDEM 5 MG TAB PO PRN (23:55)
[2017-01-22] MEDS: VANCOMYCIN 750 MG in SOD CHLORIDE 0.9% 150 ML IVPB SCH ×2 (01:25→23:37)
[2017-01-22] MEDS: HYDROmorphONE 1 MG/ML SYG IV PRN ×3 (01:39→19:52)
[2017-01-22 02:00] VITALS: BP 122/72; RESP 18
[2017-01-22] MEDS: morphine 4 MG/ML VIAL IV PRN ×3 (03:54→17:08)
[2017-01-22 06:20] LABS: ALBUMIN 2.7 g/dl (3.3-4.9); TOTAL PROTEIN 5.7 g/dl (6.1-8.1)
[2017-01-22] MEDS: PIPER-TAZO 3.375 GM IV (PMX) 100 ML IVPB SCH ×3 (06:36→21:41)
[2017-01-22 07:54] VITALS: BP 120/64; RESP 18
[2017-01-22] MEDS: SOD CHLORIDE 0.9% 1,000 ML IV SCH ×2 (08:19→17:15)
[2017-01-22] MEDS: PREGABALIN 25 MG CAP PO SCH ×2 (08:20→21:00)
[2017-01-22] MEDS: ASPIRIN (EC) 81 MG TAB PO SCH (08:20)
[2017-01-22] MEDS: ARIPIPRAZOLE 5 MG TAB PO SCH (08:20)
[2017-01-22] MEDS: DOCUSATE SODIUM 250 MG CAP PO SCH (08:20)
[2017-01-22] MEDS: FOLIC ACID 1 MG TAB PO SCH (08:20)
[2017-01-22] MEDS: ZINC SULFATE 220 MG CAP PO SCH (08:20)
[2017-01-22] MEDS: RISPERIDONE 2 MG TAB PO SCH ×2 (08:20→20:59)
[2017-01-22] MEDS: BUSPIRONE 10 MG TAB PO SCH ×3 (08:20→20:59)
[2017-01-22] MEDS: POLYETHYLENE GLYCOL 17 GM PACKET PO SCH (08:21)
[2017-01-22] MEDS: DULOXETINE 30 MG CAP DR PO SCH (08:21)
[2017-01-22] MEDS: oxyCODONE (CR) 10 MG TAB [oxyCONTIN] PO SCH ×2 (08:23→21:00)
[2017-01-22] MEDS: SODIUM HYPOCHLORITE 0.125% 473 ML BTL IRR SCH (08:24)
--- NOTE | 2017-01-22 09:00 | PN ---
Date/Time of Note Date/Time of Note DATE: 01/22/17 TIME: 08:59 Assessment/Plan VTE Prophylaxis VTE Prophylaxis Intervention: SCD's Lines/Catheters IV Catheter Type (from Nrsg): Peripheral IV Assessment/Plan Assessment/Plan 66 yo M who presented with severe pain with defecation and buttock cellulitis sent from PMD's office: #1 Cellulitis and ulceration of the buttocks region: #2 Enterobacter Urinary tract infection Likely associated with #4 #3 Mental health/possible schizophrenia #4 Hx of BPH with USS findings of mild urinary retention and renal cysts: * retention may be associated with chronic opioid use #5 Degenerative joint disease with Chronic back pain and hx of back:, #6 Hyponatremia: 2/2 dehydration? #7 ILYA r/o CKD, ?Combination of Pre and post renal : improving slowly #8 Hepatitis C associated chronic liver disease with Pancytopenia , mild coagulopathy, and elevated transaminases. #9 Iron deficiency with Pancytopenia : 5 day IV iron therapy PLAN: * Continue abx / supportive care / PT / pain control * Debridement when scheduled by surgery. * Casemgt notified to begin preparation for possible wound vac + placement * Continue bowel regimen and wound care * continue supportive care / PT eval DVT and GI prophylaxis: SCD, Protonix Subjective 24 Hr Interval Summary Free Text/Dictation no new issues Exam/Review of Systems Vital Signs Vitals Vital Signs Date Time Temp Pulse Resp B/P Pulse Ox O2 Delivery O2 Flow Rate FiO2 01/22/17 07:54 98.6 65 18 120/64 94 01/21/17 16:00 Room Air Intake and Output 01/21/17 01/21/17 01/22/17 15:00 23:00 07:00 Intake Total 110 ml 1050 ml Output Total 1300 ml Balance 110 ml -250 ml Exam Constitutional: alert, other (chronically ill looking) Head: normocephalic ENMT: other (?tardive dyskinesia), No nl lips & teeth (no dentition) Neck: supple Respiratory: clear to auscultation Cardiovascular: regular rate and rhythm, No murmurs/extra sounds Gastrointestinal: bowel sounds, non-tender, soft Extremities: No edema Neurological: No focal weakness Results Result Diagram: 01/21/17 0605 01/21/17 0607 Results 24 hrs Laboratory Tests Test 01/22/17 05:06 Total Bilirubin 0.0 L Direct Bilirubin 0.00 Indirect Bilirubin 0.0 Aspartate Amino Transf (AST/SGOT) 47 H Alanine Aminotransferase (ALT/SGPT) 48 Alkaline Phosphatase 52 Total Protein 5.7 L Albumin 2.7 L Medications Medications Current Medications Aripiprazole (Abilify) 5 mg DAILY PO Last administered on 01/22/17 08:20; Admin Dose 5 MG; Start 01/18/17 at 09:00 Aspirin (Halfprin) 81 mg DAILY PO Last administered on 01/22/17 08:20; Admin Dose 81 MG; Start 01/18/17 at 09:00 Buspirone HCl (Buspar) 10 mg TID PO Last administered on 01/22/17 08:20; Admin Dose 10 MG; Start 01/18/17 at 09:00 Clonazepam (Klonopin) 1 mg BID PRN PO ANXIETY Last administered on 01/21/17 15 :40; Admin Dose 1 MG; Start 01/18/17 at 00:30 Duloxetine HCl (Cymbalta) 120 mg DAILY PO Last administered on 01/22/17 08:21 ; Admin Dose 120 MG; Start 01/18/17 at 09:00 Folic Acid (Folic Acid) 1 mg DAILY PO Last administered on 01/22/17 08:20; Admin Dose 1 MG; Start 01/18/17 at 09:00 Pregabalin (Lyrica) 50 mg BID PO Last administered on 01/22/17 08:20; Admin Dose 50 MG; Start 01/18/17 at 09:00 Ropinirole HCl (Requip) 0.25 mg HS PO Last administered on 01/21/17 21:02; Admin Dose 0.25 MG; Start 01/18/17 at 21:00 Tamsulosin HCl (Flomax) 0.4 mg HS PO Last administered on 01/21/17 21:01; Admin Dose 0.4 MG; Start 01/18/17 at 21:00 Atorvastatin Calcium (Lipitor) 5 mg QHS PO Last administered on 01/21/17 21:02 ; Admin Dose 5 MG; Start 01/18/17 at 21:00 Risperidone (Risperdal) 2 mg BID PO Last administered on 01/22/17 08:20; Admin Dose 2 MG; Start 01/18/17 at 00:30 Hydromorphone HCl (Dilaudid) 0.5 mg Q4H PRN IV PAIN Last administered on 01:39; Admin Dose 0.5 MG; Start 01/18/17 at 00:30 Morphine Sulfate (morphine) 4 mg Q4H PRN IV pain Last administered on 03:54; Admin Dose 4 MG; Start 01/18/17 at 14:00 Docusate Sodium 250 mg 250 mg DAILY PO Last administered on 01/22/17 08:20; Admin Dose 250 MG; Start 01/19/17 at 09:00 Sodium Chloride (NS) 1,000 ml @ 100 mls/hr Q10H IV Last administered on 22:42; Admin Dose 100 MLS/HR; Start 01/18/17 at 14:30 Oxycodone HCl (Oxycontin) 10 mg BID PO Last administered on 01/22/17 08:23; Admin Dose 10 MG; Start 01/18/17 at 14:23 Sodium Hypochlorite 1 applic 1 applic BID IRR Last administered on 01/22/17 08 :24; Admin Dose 1 APPLIC; Start 01/18/17 at 21:00 Vancomycin HCl 750 mg/Sodium Chloride 150 ml @ 75 mls/hr Q24H IVPB Last administered on 01/22/17 01:25; Admin Dose 75 MLS/HR; Start 01/21/17 at 00:00 Piperacillin Sod/ Tazobactam Sod 100 ml @ 25 mls/hr TID@,14,22 IVPB Last administered on 01/22/17 06:36; Admin Dose 25 MLS/HR; Start 01/20/17 at 14:00 Ferric Sodium Gluconate Complex/ Sodium Chloride (Ferrlecit/NS) 110 ml @ 110 mls/hr Q24H IVPB Last administered on 01/21/17 21:07; Admin Dose 110 MLS/HR; Start 01/20/17 at 15:30; Stop 01/24/17 at 16:29 Zinc Sulfate (Zinc Sulfate) 220 mg DAILY PO Last administered on 01/22/17 08: 20; Admin Dose 220 MG; Start 01/20/17 at 13:00 Polyethylene Glycol (Miralax) 8.5 gm DAILY PO Last administered on 01/22/17 08 :21; Admin Dose 8.5 GM; Start 01/21/17 at 09:00 Zolpidem Tartrate (Ambien) 5 mg HS PRN PO INSOMNIA Last administered on 23:55; Admin Dose 5 MG; Start 01/21/17 at 23:30 SRIKANTH GARCIA Jan 22, 2017 09:00
--- NOTE | 2017-01-22 10:00 | PN ---
Date/Time of Note Date/Time of Note DATE: 01/22/17 TIME: 09:56 Assessment/Plan Lines/Catheters IV Catheter Type (from Nrs): Peripheral IV Assessment/Plan Chief Complaint/Hosp Course 1. Sacral wound: with slough and necrotic area in wound bed, periwound reddened -sacral wound debridement today -local care -frequent turning and repositioning -specialty bed -nutrition optimization 2. Sacral cellulitis: 2/2 above: CT: cellulitis surrounding an ulceration which extends into the subcutaneous fat abutting the dorsal surface of the coccyx without evidence of an associated subcutaneous abscess or osteomyelitis;afebrile ; periwound erythema improving -as above -abx 3. Leukocytopenia: likely 2/2 above unchanged -supportive -as above 4. Normocytic anemia: no acute bleed noted:s/p PRBC transfusion 01/19; stable -monitor -transfuse as needed 5. Thrombocytopenia 2/2 #2; \ -bleeding precautions -supportive 6. Hyponatremia: now with hypernatremia -judicious fluid management 7.ILYA: bilateral hydronephrosis with bilateral renal cyst; cr stable -judicious fluid management avoid nephrotoxic meds -renal dosing for meds 8. Hypocalcemia with hypoalbuminemia: likely 2/2 malnutrition -nutrition optimization -optimize lytes 9. UTI: urine cx: enterobacter cloacae; afebrile -abx per sensitivity Patient seen and examined in collaboration with Dr. El Root Problems: Subjective 24 Hr Interval Summary Feels well. No fevers, chills, sob, cp, palpitations, pain, n/v/d, gore, dizziness , sz, dysuria. + flatus Exam/Review of Systems Vital Signs Vitals Vital Signs Date Time Temp Pulse Resp B/P Pulse Ox O2 Delivery O2 Flow Rate FiO2 01/22/17 07:54 98.6 65 18 120/64 94 01/21/17 16:00 Room Air Intake and Output 01/21/17 01/21/17 01/22/17 15:00 23:00 07:00 Intake Total 110 ml 1050 ml Output Total 1300 ml Balance 110 ml -250 ml Exam Free Text/Dictation Constitutional: alert, oriented Psych: normal mood Head: atraumatic, normocephalic Eyes: PERRL, nl lids, nl sclera ENMT: mucosa pink and moist, nl nasal mucosa & septum Neck: non-tender, supple Respiratory: normal air movement Cardiovascular: nl pulses, regular rate and rhythm Gastrointestinal: non-tender, soft Musculoskeletal: nl extremities to inspection Extremities: normal pulses Neurological: nl speech, nl strength Skin: other (sacral wound with slough and necrotic tissue, periwound erythema improved) Lymph: nl lymph nodes Results Result Diagram: 01/21/17 0605 01/21/17 0607 DORINA LITTLEJOHN NP Jan 22, 2017 10:00
[2017-01-22] MEDS ORDERED: LIDOCAINE 1%/EPI 30 ML INJ INJ STA (10:30)
[2017-01-22] MEDS ORDERED: SILVER NITRATE SWAB TOP ONE (11:00)
[2017-01-22] MEDS ORDERED: LIDOCAINE 2%/EPI MPF (SDV) 20 ML VIAL INJ ONE (11:00)
--- NOTE | 2017-01-22 12:56 | CONS ---
Date/Time of Note Date/Time of Note DATE: 01/22/17 TIME: 12:53 Assessment/Plan Assessment/Plan Chief Complaint/Hosp Course Assessment/Plan Chief Complaint/Hosp Course ID PROGRESS NOTE TOTAL ABX DAY # 4 => Vanco IV + Zosyn s/p Ceftriaxone 01/17 x1 24H INTERVAL SUMMARY No fevers, Denies Pain. No Acute Distress. 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 Denies Pain. HEENT: Unremarkable, NECK: Supple,full ROM CHEST: Equal chest rise bilaterally, without dyspnea on observation HEART: Pulse RRR ABDOMEN: Soft, nontender EXTREMITIES: Warm, DRY SKIN: Warm, dry ID ASSESSMENT: 66 yo M w/PMHx PsychDx, HCV, lumbosacral pain post spinal decompression admitted with: 1. SIRS -> low grade fevers, leukocytosis, tachycardia present on admission due to GNR Pyelonephritis + Unstageable sacral wound Blood Cx (-) to date 2. Unstageable sacral wound CT: There is cellulitis surrounding an ulceration which extends into the subcutaneous fat abutting the dorsal surface of the coccyx without evidence of an associated subcutaneous abscess or osteomyelitis. 3. Acute Pyelonephritis due to complicated UTI ? obstructive uropathy vs urinary retention ? 01/18 Renal SUNNY: Mild bilateral hydronephrosis. Mildly distended urinary bladder with dependent debris in the lumen. MICRO: (+)ENTEROBACTER CLOACAE => DEVELOPS RESISTANCE TO CEPHALOSPORINS QUICKLY 4. Acute renal failure possible chronic kidney disease 5. Acute on chronic anemia History of hepatitis C virus 6. Interval clearing of previously noted right lower lobe pneumonia 7. Hx of CAD - stable 8. Severe lumbosacral DJD/DDD w/hx of Posterior spinal fusion from L4-S1 with evidence of bilateral L5 laminectomy. CT: (+)Severe disk space narrowing at L5-S1 with bilateral bony nerve root canal stenosis and bilateral degenerative facet arthropathy at L5-S1. 9. Hx of Old healed internally fixated fracture to the neck of the proximal left femur. 10. Chronic debility/chronic pain/limited mobility issues due to #8 ?MRSA Nares INVASIVES: * PIV ABX ALLERGIES: KNDA CURRENT ABX: DAY # 4 => Vanco IV + Zosyn ID RECOMMENDATIONS: 1. Continue current ABX. Continue wound care. Anticipate total 14 day course. Monitor Labs. 2. May Transfer to SNF on IV ABX when cleared by primary to complete 14 days Problems: Consultation Date/Type/Reason Admit Date/Time Jan 17, 2017 at 21:06 Initial Consult Date 01/19/17 Type of Consultation: id Exam/Review of Systems Vital Signs Vitals Vital Signs Date Time Temp Pulse Resp B/P Pulse Ox O2 Delivery O2 Flow Rate FiO2 01/22/17 07:54 98.6 65 18 120/64 94 01/21/17 16:00 Room Air Intake and Output 01/21/17 01/21/17 01/22/17 15:00 23:00 07:00 Intake Total 110 ml 1050 ml Output Total 1300 ml Balance 110 ml -250 ml Results Result Diagram: 01/21/17 0605 01/21/17 0607 Results 24 hrs Laboratory Tests Test 01/22/17 05:06 Total Bilirubin 0.0 L Direct Bilirubin 0.00 Indirect Bilirubin 0.0 Aspartate Amino Transf (AST/SGOT) 47 H Alanine Aminotransferase (ALT/SGPT) 48 Alkaline Phosphatase 52 Total Protein 5.7 L Albumin 2.7 L Medications Medications Current Medications Aripiprazole (Abilify) 5 mg DAILY PO Last administered on 01/22/17 08:20; Admin Dose 5 MG; Start 01/18/17 at 09:00 Aspirin (Halfprin) 81 mg DAILY PO Last administered on 01/22/17 08:20; Admin Dose 81 MG; Start 01/18/17 at 09:00 Buspirone HCl (Buspar) 10 mg TID PO Last administered on 01/22/17 08:20; Admin Dose 10 MG; Start 01/18/17 at 09:00 Clonazepam (Klonopin) 1 mg BID PRN PO ANXIETY Last administered on 01/21/17 15 :40; Admin Dose 1 MG; Start 01/18/17 at 00:30 Duloxetine HCl (Cymbalta) 120 mg DAILY PO Last administered on 01/22/17 08:21 ; Admin Dose 120 MG; Start 01/18/17 at 09:00 Folic Acid (Folic Acid) 1 mg DAILY PO Last administered on 01/22/17 08:20; Admin Dose 1 MG; Start 01/18/17 at 09:00 Pregabalin (Lyrica) 50 mg BID PO Last administered on 01/22/17 08:20; Admin Dose 50 MG; Start 01/18/17 at 09:00 Ropinirole HCl (Requip) 0.25 mg HS PO Last administered on 01/21/17 21:02; Admin Dose 0.25 MG; Start 01/18/17 at 21:00 Tamsulosin HCl (Flomax) 0.4 mg HS PO Last administered on 01/21/17 21:01; Admin Dose 0.4 MG; Start 01/18/17 at 21:00 Atorvastatin Calcium (Lipitor) 5 mg QHS PO Last administered on 01/21/17 21:02 ; Admin Dose 5 MG; Start 01/18/17 at 21:00 Risperidone (Risperdal) 2 mg BID PO Last administered on 01/22/17 08:20; Admin Dose 2 MG; Start 01/18/17 at 00:30 Hydromorphone HCl (Dilaudid) 0.5 mg Q4H PRN IV PAIN Last administered on 01:39; Admin Dose 0.5 MG; Start 01/18/17 at 00:30 Morphine Sulfate (morphine) 4 mg Q4H PRN IV pain Last administered on 11:35; Admin Dose 4 MG; Start 01/18/17 at 14:00 Docusate Sodium 250 mg 250 mg DAILY PO Last administered on 01/22/17 08:20; Admin Dose 250 MG; Start 01/19/17 at 09:00 Sodium Chloride (NS) 1,000 ml @ 100 mls/hr Q10H IV Last administered on 22:42; Admin Dose 100 MLS/HR; Start 01/18/17 at 14:30 Oxycodone HCl (Oxycontin) 10 mg BID PO Last administered on 01/22/17 08:23; Admin Dose 10 MG; Start 01/18/17 at 14:23 Sodium Hypochlorite 1 applic 1 applic BID IRR Last administered on 01/22/17 08 :24; Admin Dose 1 APPLIC; Start 01/18/17 at 21:00 Vancomycin HCl 750 mg/Sodium Chloride 150 ml @ 75 mls/hr Q24H IVPB Last administered on 01/22/17 01:25; Admin Dose 75 MLS/HR; Start 01/21/17 at 00:00 Piperacillin Sod/ Tazobactam Sod 100 ml @ 25 mls/hr TID@,, IVPB Last administered on 01/22/17 06:36; Admin Dose 25 MLS/HR; Start 01/20/17 at 14:00 Ferric Sodium Gluconate Complex/ Sodium Chloride (Ferrlecit/NS) 110 ml @ 110 mls/hr Q24H IVPB Last administered on 01/21/17 21:07; Admin Dose 110 MLS/HR; Start 01/20/17 at 15:30; Stop 01/24/17 at 16:29 Zinc Sulfate (Zinc Sulfate) 220 mg DAILY PO Last administered on 01/22/17 08: 20; Admin Dose 220 MG; Start 01/20/17 at 13:00 Polyethylene Glycol (Miralax) 8.5 gm DAILY PO Last administered on 01/22/17 08 :21; Admin Dose 8.5 GM; Start 01/21/17 at 09:00 Zolpidem Tartrate (Ambien) 5 mg HS PRN PO INSOMNIA Last administered on 23:55; Admin Dose 5 MG; Start 01/21/17 at 23:30 KIAH REAL NP Jan 22, 2017 12:56
--- NOTE | 2017-01-22 13:40 | OPR ---
Date/Time of Note Date/Time of Note DATE: 01/22/17 TIME: 13:37 Operative Report Procedure Date: Jan 22, 2017 Preoperative Diagnosis Sacrococcygeal stage IV decubitus ulcer with necrotic tissue, 10 x 5 cm Postoperative Diagnosis Same Operation Performed Excisional debridement of skin, subcutaneous tissue, muscle, fascia of the sacrococcyx, 10 x 5 cm Surgeon: SAVANNAH ELIZABETH MD Food Quality Tester: DORINA LITTLEJOHN NP Estimated Blood Loss: 0 - 10 ml's Specimens Necrotic tissue excised but not sent to pathology Grafts/Implants Curlex Tubes/Drains None Complications: None Pt Condition Post Procedure: stable Disposition: other (In his own room) Indications Per notes Usual and customary risks benefits and alternatives reviewed with patient and agreed to proceed. Procedure Description Patient was placed in lateral decubitus position. All pressure points were well- padded. Patient is already on antibiotics. Timeout was performed. Patient was prepped and draped in usual sterile fashion. Using scalpel, skin, subcutaneous, and muscle were excised down to healthier tissue. Hemostasis was obtained. Wound was irrigated and packed with Kerlix. Dry dressing was applied. All counts were correct at the end of the operation 2. SAVANNAH ELIZABETH MD Jan 22, 2017 13:40
[2017-01-22 14:18] VITALS: BP 128/73; RESP 18
[2017-01-22] MEDS: SOD FERRIC GLUC COMPLX 125 MG in SOD CHLORIDE 0.9% 100 ML IVPB SCH (16:22)
[2017-01-22 20:31] VITALS: BP 161/78; RESP 20
[2017-01-22] MEDS: TAMSULOSIN (SR) 0.4 MG CAP PO SCH (20:59)
[2017-01-22] MEDS: ROPINIROLE 0.25 MG TAB PO SCH (20:59)
[2017-01-22] MEDS: ATORVASTATIN 10 MG TAB PO SCH (21:00)
[2017-01-23 03:04] VITALS: BP 137/69; RESP 20
[2017-01-23] MEDS: SOD CHLORIDE 0.9% 1,000 ML IV SCH ×3 (04:08→23:52)
[2017-01-23] MEDS: PIPER-TAZO 3.375 GM IV (PMX) 100 ML IVPB SCH ×3 (05:22→21:27)
[2017-01-23 07:21] VITALS: BP 139/71; RESP 18
[2017-01-23] MEDS: HYDROmorphONE 1 MG/ML SYG IV PRN (07:32)
--- NOTE | 2017-01-23 09:01 | PN ---
Date/Time of Note Date/Time of Note DATE: 01/23/17 TIME: 08:56 Assessment/Plan Lines/Catheters IV Catheter Type (from Nrs): Peripheral IV Assessment/Plan Chief Complaint/Hosp Course 1. Sacral wound: s/op debridement yesterday, periwound redness improved -local care -frequent turning and repositioning -specialty bed -nutrition optimization 2. Sacral cellulitis: 2/2 above: CT: cellulitis surrounding an ulceration which extends into the subcutaneous fat abutting the dorsal surface of the coccyx without evidence of an associated subcutaneous abscess or osteomyelitis;afebrile ; periwound erythema improving; s/p debridement -as above -abx 3. Leukocytopenia: likely 2/2 above unchanged -supportive -as above 4. Normocytic anemia: no acute bleed noted:s/p PRBC transfusion 01/19; stable -monitor -transfuse as needed 5. Thrombocytopenia 2/2 #2; \ -bleeding precautions -supportive 6. Hyponatremia: now with hypernatremia -judicious fluid management 7.ILYA: bilateral hydronephrosis with bilateral renal cyst; cr stable -judicious fluid management avoid nephrotoxic meds -renal dosing for meds 8. Hypocalcemia with hypoalbuminemia: likely 2/2 malnutrition -nutrition optimization -optimize lytes 9. UTI: urine cx: enterobacter cloacae; afebrile -abx per sensitivity Patient seen and examined in collaboration with Dr. El Root Problems: Subjective 24 Hr Interval Summary s/p debridement yesterday. Pain to sacrum improved. No fevers, chills, gore, dizziness, cp, palpitations, sob, cough, n/v/d. + bowel function Exam/Review of Systems Vital Signs Vitals Vital Signs Date Time Temp Pulse Resp B/P Pulse Ox O2 Delivery O2 Flow Rate FiO2 01/23/17 07:21 98.3 18 139/71 98 01/23/17 03:04 89 01/21/17 16:00 Room Air Intake and Output 01/22/17 01/22/17 01/23/17 15:00 23:00 07:00 Intake Total 100 ml 2450 ml 1150 ml Output Total 1800 ml 800 ml Balance 100 ml 650 ml 350 ml Exam Free Text/Dictation Constitutional: alert, oriented Psych: normal mood Head: atraumatic, normocephalic Eyes: PERRL, nl lids, nl sclera ENMT: mucosa pink and moist, nl nasal mucosa & septum Neck: non-tender, supple Respiratory: normal air movement Cardiovascular: nl pulses, regular rate and rhythm Gastrointestinal: non-tender, soft Musculoskeletal: nl extremities to inspection Extremities: normal pulses Neurological: nl speech, nl strength Skin: other (sacral wound with min slough, serosanguineous drainage, periwound erythema improved) Lymph: nl lymph nodes Results Result Diagram: 01/21/17 0605 01/21/17 0607 DORINA LITTLEJOHN NP Jan 23, 2017 09:01
[2017-01-23] MEDS: DOCUSATE SODIUM 250 MG CAP PO SCH (09:29)
[2017-01-23] MEDS: DULOXETINE 30 MG CAP DR PO SCH (09:29)
[2017-01-23] MEDS: PREGABALIN 25 MG CAP PO SCH ×2 (09:29→20:41)
[2017-01-23] MEDS: BUSPIRONE 10 MG TAB PO SCH ×3 (09:29→20:41)
[2017-01-23] MEDS: ASPIRIN (EC) 81 MG TAB PO SCH (09:29)
[2017-01-23] MEDS: ARIPIPRAZOLE 5 MG TAB PO SCH (09:29)
[2017-01-23] MEDS: FOLIC ACID 1 MG TAB PO SCH (09:30)
[2017-01-23] MEDS: oxyCODONE (CR) 10 MG TAB [oxyCONTIN] PO SCH ×2 (09:30→20:41)
[2017-01-23] MEDS: RISPERIDONE 2 MG TAB PO SCH ×2 (09:30→20:41)
[2017-01-23] MEDS: POLYETHYLENE GLYCOL 17 GM PACKET PO SCH (09:30)
[2017-01-23] MEDS: ZINC SULFATE 220 MG CAP PO SCH (09:30)
--- NOTE | 2017-01-23 12:34 | PN ---
Date/Time of Note Date/Time of Note DATE: 01/23/17 TIME: 12:32 Assessment/Plan VTE Prophylaxis VTE Prophylaxis Intervention: SCD's Lines/Catheters IV Catheter Type (from Nrsg): Peripheral IV Assessment/Plan Chief Complaint/Hosp Course #1 Cellulitis and ulceration of the buttocks region status post Debridement with surgery Continue abx / supportive care / PT / pain control, patient may need a wound VAC #2 Enterobacter Urinary tract infection Likely associated with #4 #3 Mental health/possible schizophrenia #4 Hx of BPH with USS findings of mild urinary retention and renal cysts: * retention may be associated with chronic opioid use #5 Degenerative joint disease with Chronic back pain and hx of back:, #6 Hyponatremia: 2/2 dehydration? #7 ILYA r/o CKD, ?Combination of Pre and post renal : improving slowly #8 Hepatitis C associated chronic liver disease with Pancytopenia , mild coagulopathy, and elevated transaminases. #9 Iron deficiency with Pancytopenia : 5 day IV iron therapy DVT and GI prophylaxis: SCD, Protonix Discharge planning: project manager interior design to arrange for placement Problems: Subjective 24 Hr Interval Summary Constitutional: no complaints Exam/Review of Systems Vital Signs Vitals Vital Signs Date Time Temp Pulse Resp B/P Pulse Ox O2 Delivery O2 Flow Rate FiO2 01/23/17 07:21 98.3 18 139/71 98 01/23/17 03:04 89 01/21/17 16:00 Room Air Intake and Output 01/22/17 01/22/17 01/23/17 15:00 23:00 07:00 Intake Total 100 ml 2450 ml 1150 ml Output Total 1800 ml 800 ml Balance 100 ml 650 ml 350 ml Exam Constitutional: alert Respiratory: clear to auscultation Cardiovascular: regular rate and rhythm Gastrointestinal: soft, No distended Musculoskeletal: nl extremities to inspection Results Result Diagram: 01/21/17 0605 01/21/17 0607 Medications Medications Current Medications Aripiprazole (Abilify) 5 mg DAILY PO Last administered on 01/23/17 09:29; Admin Dose 5 MG; Start 01/18/17 at 09:00 Aspirin (Halfprin) 81 mg DAILY PO Last administered on 01/23/17 09:29; Admin Dose 81 MG; Start 01/18/17 at 09:00 Buspirone HCl (Buspar) 10 mg TID PO Last administered on 01/23/17 09:29; Admin Dose 10 MG; Start 01/18/17 at 09:00 Clonazepam (Klonopin) 1 mg BID PRN PO ANXIETY Last administered on 01/21/17 15 :40; Admin Dose 1 MG; Start 01/18/17 at 00:30 Duloxetine HCl (Cymbalta) 120 mg DAILY PO Last administered on 01/23/17 09:29 ; Admin Dose 120 MG; Start 01/18/17 at 09:00 Folic Acid (Folic Acid) 1 mg DAILY PO Last administered on 01/23/17 09:30; Admin Dose 1 MG; Start 01/18/17 at 09:00 Pregabalin (Lyrica) 50 mg BID PO Last administered on 01/23/17 09:29; Admin Dose 50 MG; Start 01/18/17 at 09:00 Ropinirole HCl (Requip) 0.25 mg HS PO Last administered on 01/22/17 20:59; Admin Dose 0.25 MG; Start 01/18/17 at 21:00 Tamsulosin HCl (Flomax) 0.4 mg HS PO Last administered on 01/22/17 20:59; Admin Dose 0.4 MG; Start 01/18/17 at 21:00 Atorvastatin Calcium (Lipitor) 5 mg QHS PO Last administered on 01/22/17 21:00 ; Admin Dose 5 MG; Start 01/18/17 at 21:00 Risperidone (Risperdal) 2 mg BID PO Last administered on 01/23/17 09:30; Admin Dose 2 MG; Start 01/18/17 at 00:30 Hydromorphone HCl (Dilaudid) 0.5 mg Q4H PRN IV PAIN Last administered on 07:32; Admin Dose 0.5 MG; Start 01/18/17 at 00:30 Morphine Sulfate (morphine) 4 mg Q4H PRN IV pain Last administered on 17:08; Admin Dose 4 MG; Start 01/18/17 at 14:00 Docusate Sodium 250 mg 250 mg DAILY PO Last administered on 01/23/17 09:29; Admin Dose 250 MG; Start 01/19/17 at 09:00 Sodium Chloride (NS) 1,000 ml @ 100 mls/hr Q10H IV Last administered on 17:15; Admin Dose 100 MLS/HR; Start 01/18/17 at 14:30 Oxycodone HCl 10 mg 10 mg BID PO Last administered on 01/23/17 09:30; Admin Dose 10 MG; Start 01/18/17 at 14:23 Vancomycin HCl 750 mg/Sodium Chloride 150 ml @ 75 mls/hr Q24H IVPB Last administered on 01/22/17 23:37; Admin Dose 75 MLS/HR; Start 01/21/17 at 00:00 Piperacillin Sod/ Tazobactam Sod 100 ml @ 25 mls/hr TID@06,14,22 IVPB Last administered on 01/23/17 05:22; Admin Dose 25 MLS/HR; Start 01/20/17 at 14:00 Ferric Sodium Gluconate Complex/ Sodium Chloride (Ferrlecit/NS) 110 ml @ 110 mls/hr Q24H IVPB Last administered on 01/22/17 16:22; Admin Dose 110 MLS/HR; Start 01/20/17 at 15:30; Stop 01/24/17 at 16:29 Zinc Sulfate (Zinc Sulfate) 220 mg DAILY PO Last administered on 01/23/17 09: 30; Admin Dose 220 MG; Start 01/20/17 at 13:00 Polyethylene Glycol (Miralax) 8.5 gm DAILY PO Last administered on 01/23/17 09 :30; Admin Dose 8.5 GM; Start 01/21/17 at 09:00 Zolpidem Tartrate (Ambien) 5 mg HS PRN PO INSOMNIA Last administered on 23:55; Admin Dose 5 MG; Start 01/21/17 at 23:30 Sodium Hypochlorite (Dakin'S (1/4 Strength)) 1 applic DAILY IRR ; Start at 09:00 Collagenase (Santyl) 1 applic DAILY TOP ; Start 01/23/17 at 09:00 Miscellaneous Information (*Rx Drug Level Order Reminder*) VANCOMYCIN TROUGH AT 2300 ONCE ONCE XX ; Start 01/23/17 at 23:00; Stop 01/23/17 at 23:01 DAVID ANGELO Jan 23, 2017 12:34
--- NOTE | 2017-01-23 13:17 | CONS ---
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 Head atraumatic normocephalic, sclera nonicteric. Neck is supple trachea midline. Chest rise symmetrical breath sounds clear bilaterally. No shortness of breath. Heart: S1, S2. Abdomen soft, bowel tones present. Extremities no cyanosis. Skin was unstageable sacral wound. Assessment: 1. Unstageable sacral wound, status post debridement 2. Urinary tract infection 3. Acute on chronic anemia 4. Acute renal failure possible chronic kidney disease 5. History of hepatitis C virus Plan: Remains stable, continue antibiotics, local wound care per surgical recommendations, f/u cx's . Discussed with RN Problems: Consultation Date/Type/Reason Admit Date/Time Jan 17, 2017 at 21:06 Initial Consult Date 01/19/17 Type of Consultation: id Exam/Review of Systems Vital Signs Vitals Vital Signs Date Time Temp Pulse Resp B/P Pulse Ox O2 Delivery O2 Flow Rate FiO2 01/23/17 07:21 98.3 18 139/71 98 01/23/17 03:04 89 01/21/17 16:00 Room Air Intake and Output 01/22/17 01/22/17 01/23/17 15:00 23:00 07:00 Intake Total 100 ml 2450 ml 1150 ml Output Total 1800 ml 800 ml Balance 100 ml 650 ml 350 ml Results Result Diagram: 01/21/17 0605 01/21/17 0607 Medications Medications Current Medications Aripiprazole (Abilify) 5 mg DAILY PO Last administered on 01/23/17 09:29; Admin Dose 5 MG; Start 01/18/17 at 09:00 Aspirin (Halfprin) 81 mg DAILY PO Last administered on 01/23/17 09:29; Admin Dose 81 MG; Start 01/18/17 at 09:00 Buspirone HCl (Buspar) 10 mg TID PO Last administered on 01/23/17 09:29; Admin Dose 10 MG; Start 01/18/17 at 09:00 Clonazepam (Klonopin) 1 mg BID PRN PO ANXIETY Last administered on 01/21/17 15 :40; Admin Dose 1 MG; Start 01/18/17 at 00:30 Duloxetine HCl (Cymbalta) 120 mg DAILY PO Last administered on 01/23/17 09:29 ; Admin Dose 120 MG; Start 01/18/17 at 09:00 Folic Acid (Folic Acid) 1 mg DAILY PO Last administered on 01/23/17 09:30; Admin Dose 1 MG; Start 01/18/17 at 09:00 Pregabalin (Lyrica) 50 mg BID PO Last administered on 01/23/17 09:29; Admin Dose 50 MG; Start 01/18/17 at 09:00 Ropinirole HCl (Requip) 0.25 mg HS PO Last administered on 01/22/17 20:59; Admin Dose 0.25 MG; Start 01/18/17 at 21:00 Tamsulosin HCl (Flomax) 0.4 mg HS PO Last administered on 01/22/17 20:59; Admin Dose 0.4 MG; Start 01/18/17 at 21:00 Atorvastatin Calcium (Lipitor) 5 mg QHS PO Last administered on 01/22/17 21:00 ; Admin Dose 5 MG; Start 01/18/17 at 21:00 Risperidone (Risperdal) 2 mg BID PO Last administered on 01/23/17 09:30; Admin Dose 2 MG; Start 01/18/17 at 00:30 Hydromorphone HCl (Dilaudid) 0.5 mg Q4H PRN IV PAIN Last administered on 07:32; Admin Dose 0.5 MG; Start 01/18/17 at 00:30 Morphine Sulfate (morphine) 4 mg Q4H PRN IV pain Last administered on 17:08; Admin Dose 4 MG; Start 01/18/17 at 14:00 Docusate Sodium 250 mg 250 mg DAILY PO Last administered on 01/23/17 09:29; Admin Dose 250 MG; Start 01/19/17 at 09:00 Sodium Chloride (NS) 1,000 ml @ 100 mls/hr Q10H IV Last administered on 12:38; Admin Dose 100 MLS/HR; Start 01/18/17 at 14:30 Oxycodone HCl 10 mg 10 mg BID PO Last administered on 01/23/17 09:30; Admin Dose 10 MG; Start 01/18/17 at 14:23 Vancomycin HCl 750 mg/Sodium Chloride 150 ml @ 75 mls/hr Q24H IVPB Last administered on 01/22/17 23:37; Admin Dose 75 MLS/HR; Start 01/21/17 at 00:00 Piperacillin Sod/ Tazobactam Sod 100 ml @ 25 mls/hr TID@06,14,22 IVPB Last administered on 01/23/17 05:22; Admin Dose 25 MLS/HR; Start 01/20/17 at 14:00 Ferric Sodium Gluconate Complex/ Sodium Chloride (Ferrlecit/NS) 110 ml @ 110 mls/hr Q24H IVPB Last administered on 01/22/17 16:22; Admin Dose 110 MLS/HR; Start 01/20/17 at 15:30; Stop 01/24/17 at 16:29 Zinc Sulfate (Zinc Sulfate) 220 mg DAILY PO Last administered on 01/23/17 09: 30; Admin Dose 220 MG; Start 01/20/17 at 13:00 Polyethylene Glycol (Miralax) 8.5 gm DAILY PO Last administered on 01/23/17 09 :30; Admin Dose 8.5 GM; Start 01/21/17 at 09:00 Zolpidem Tartrate (Ambien) 5 mg HS PRN PO INSOMNIA Last administered on 23:55; Admin Dose 5 MG; Start 01/21/17 at 23:30 Sodium Hypochlorite (Dakin'S (1/4 Strength)) 1 applic DAILY IRR ; Start at 09:00 Collagenase (Santyl) 1 applic DAILY TOP ; Start 01/23/17 at 09:00 Miscellaneous Information (*Rx Drug Level Order Reminder*) VANCOMYCIN TROUGH AT 2300 ONCE ONCE XX ; Start 01/23/17 at 23:00; Stop 01/23/17 at 23:01 LORI ROBLERO NP Jan 23, 2017 13:17
[2017-01-23] MEDS: morphine 4 MG/ML VIAL IV PRN (13:22)
[2017-01-23] MEDS: COLLAGENASE 30 GM TUBE TOP SCH (13:23)
[2017-01-23] MEDS: SODIUM HYPOCHLORITE 0.125% 473 ML BTL IRR SCH (13:24)
[2017-01-23 14:45] VITALS: BP 100/58; PULSE 89; RESP 18
[2017-01-23] MEDS: SOD FERRIC GLUC COMPLX 125 MG in SOD CHLORIDE 0.9% 100 ML IVPB SCH (15:37)
[2017-01-23 20:23] VITALS: BP 160/74; RESP 18
[2017-01-23] MEDS: TAMSULOSIN (SR) 0.4 MG CAP PO SCH (20:41)
[2017-01-23] MEDS: ATORVASTATIN 10 MG TAB PO SCH (20:41)
[2017-01-23] MEDS: ROPINIROLE 0.25 MG TAB PO SCH (20:41)
[2017-01-23] MEDS: VANCOMYCIN 750 MG in SOD CHLORIDE 0.9% 150 ML IVPB SCH (23:40)
[2017-01-24 02:45] VITALS: BP 146/78; RESP 20
[2017-01-24] MEDS: PIPER-TAZO 3.375 GM IV (PMX) 100 ML IVPB SCH ×2 (05:28→16:32)
[2017-01-24 05:36] LABS: ADD SCAN DIFF NO
[2017-01-24 05:39] LABS: BASOPHILS % 0.5 % (0.0-2.0); EOSINOPHILS # 0.1 10^3/ul (0.0-0.5); EOSINOPHILS % 1.6 % (0.0-7.0); HEMATOCRIT 30.1 % (42.0-52.0); HEMOGLOBIN 9.8 g/dl (14.0-18.0); LYMPHOCYTES # 0.8 10^3/ul (0.8-2.9); LYMPHOCYTES % 18.9 % (15.0-51.0); MEAN CORPUSCULAR HEMOGLOBIN 31.5 pg (29.0-33.0); MEAN CORPUSCULAR HGB CONC 32.6 g/dl (32.0-37.0); MEAN CORPUSCULAR VOLUME 96.8 fl (82.0-101.0); MEAN PLATELET VOLUME 9.4 fl (7.4-10.4); MONOCYTE # 0.4 10^3/ul (0.3-0.9); MONOCYTES % 8.2 % (0.0-11.0); NEUTROPHIL # 3.1 10^3/ul (1.6-7.5); NEUTROPHILS % 70.1 % (39.0-77.0); PLATELET COUNT 146 10^3/UL (140-415); RED BLOOD COUNT 3.11 10^6/ul (4.70-6.10); RED CELL DISTRIBUTION WIDTH 14.2 % (11.5-14.5); WHITE BLOOD COUNT 4.4 10^3/ul (4.8-10.8)
[2017-01-24 06:14] LABS: CALCIUM 7.9 mg/dl (8.4-10.2); CREATININE 1.71 mg/dl (0.61-1.24); MAGNESIUM 1.5 mg/dl (1.7-2.5); POTASSIUM 3.7 mmol/L (3.5-5.1)
[2017-01-24 07:48] VITALS: BP 146/71; RESP 20
[2017-01-24] MEDS: POLYETHYLENE GLYCOL 17 GM PACKET PO SCH (08:40)
[2017-01-24] MEDS: ARIPIPRAZOLE 5 MG TAB PO SCH (08:41)
[2017-01-24] MEDS: RISPERIDONE 2 MG TAB PO SCH ×2 (08:41→20:29)
[2017-01-24] MEDS: PREGABALIN 25 MG CAP PO SCH ×2 (08:41→20:30)
[2017-01-24] MEDS: oxyCODONE (CR) 10 MG TAB [oxyCONTIN] PO SCH ×2 (08:41→21:34)
[2017-01-24] MEDS: DOCUSATE SODIUM 250 MG CAP PO SCH (08:42)
[2017-01-24] MEDS: FOLIC ACID 1 MG TAB PO SCH (08:42)
[2017-01-24] MEDS: ASPIRIN (EC) 81 MG TAB PO SCH (08:42)
[2017-01-24] MEDS: DULOXETINE 30 MG CAP DR PO SCH (08:42)
[2017-01-24] MEDS: ZINC SULFATE 220 MG CAP PO SCH (08:42)
[2017-01-24] MEDS: BUSPIRONE 10 MG TAB PO SCH ×3 (08:47→20:30)
[2017-01-24] MEDS: SODIUM HYPOCHLORITE 0.125% 473 ML BTL IRR SCH (08:50)
[2017-01-24] MEDS: SOD CHLORIDE 0.9% 1,000 ML IV SCH ×2 (10:30→21:36)
--- NOTE | 2017-01-24 15:03 | PN ---
Date/Time of Note Date/Time of Note DATE: 01/24/17 TIME: 15:03 Assessment/Plan VTE Prophylaxis VTE Prophylaxis Intervention: SCD's Lines/Catheters IV Catheter Type (from Nrsg): Peripheral IV Assessment/Plan Chief Complaint/Hosp Course #1 Cellulitis and ulceration of the buttocks region status post Debridement with surgery Continue abx / supportive care / PT / pain control, patient may need a wound VAC #2 Enterobacter Urinary tract infection Likely associated with #4 #3 Mental health/possible schizophrenia #4 Hx of BPH with USS findings of mild urinary retention and renal cysts: * retention may be associated with chronic opioid use #5 Degenerative joint disease with Chronic back pain and hx of back:, #6 Hyponatremia: 2/2 dehydration? #7 ILYA r/o CKD, ?Combination of Pre and post renal : improving slowly #8 Hepatitis C associated chronic liver disease with Pancytopenia , mild coagulopathy, and elevated transaminases. #9 Iron deficiency with Pancytopenia : 5 day IV iron therapy DVT and GI prophylaxis: SCD, Protonix Discharge planning: web services manager to arrange for placement, patient's assisted living may not take patient back with open wound Problems: Subjective 24 Hr Interval Summary Constitutional: no complaints Exam/Review of Systems Vital Signs Vitals Vital Signs Date Time Temp Pulse Resp B/P Pulse Ox O2 Delivery O2 Flow Rate FiO2 01/24/17 07:48 98.7 84 20 146/71 98 01/23/17 14:45 Room Air Intake and Output 01/23/17 01/23/17 01/24/17 15:00 23:00 07:00 Intake Total 900 ml 1830 ml 1300 ml Output Total 2000 ml 1900 ml Balance 900 ml -170 ml -600 ml Exam Constitutional: alert Respiratory: clear to auscultation Cardiovascular: regular rate and rhythm Gastrointestinal: soft, No distended Musculoskeletal: nl extremities to inspection Results Result Diagram: 01/24/17 0506 01/24/17 0506 Results 24 hrs Laboratory Tests Test 01/23/17 22:48 01/24/17 05:06 Vancomycin Level Trough 10.7 White Blood Count 4.4 L Red Blood Count 3.11 L Hemoglobin 9.8 L Hematocrit 30.1 L Mean Corpuscular Volume 96.8 Mean Corpuscular Hemoglobin 31.5 Mean Corpuscular Hemoglobin Concent 32.6 Red Cell Distribution Width 14.2 Platelet Count 146 Mean Platelet Volume 9.4 Neutrophils % 70.1 Lymphocytes % 18.9 Monocytes % 8.2 Eosinophils % 1.6 Basophils % 0.5 Nucleated Red Blood Cells % 0.0 Neutrophils # 3.1 Lymphocytes # 0.8 Monocytes # 0.4 Eosinophils # 0.1 Basophils # 0.0 Nucleated Red Blood Cells # 0.0 Sodium Level 147 H Potassium Level 3.7 Chloride Level 113 H Carbon Dioxide Level 23 Anion Gap 15 Blood Urea Nitrogen 12 Creatinine 1.71 H Glucose Level 92 Calcium Level 7.9 L Magnesium Level 1.5 L Medications Medications Current Medications Aripiprazole (Abilify) 5 mg DAILY PO Last administered on 01/24/17 08:41; Admin Dose 5 MG; Start 01/18/17 at 09:00 Aspirin (Halfprin) 81 mg DAILY PO Last administered on 01/24/17 08:42; Admin Dose 81 MG; Start 01/18/17 at 09:00 Buspirone HCl (Buspar) 10 mg TID PO Last administered on 01/24/17 08:47; Admin Dose 10 MG; Start 01/18/17 at 09:00 Clonazepam (Klonopin) 1 mg BID PRN PO ANXIETY Last administered on 01/21/17 15 :40; Admin Dose 1 MG; Start 01/18/17 at 00:30 Duloxetine HCl (Cymbalta) 120 mg DAILY PO Last administered on 01/24/17 08:42 ; Admin Dose 120 MG; Start 01/18/17 at 09:00 Folic Acid (Folic Acid) 1 mg DAILY PO Last administered on 01/24/17 08:42; Admin Dose 1 MG; Start 01/18/17 at 09:00 Pregabalin (Lyrica) 50 mg BID PO Last administered on 01/24/17 08:41; Admin Dose 50 MG; Start 01/18/17 at 09:00 Ropinirole HCl (Requip) 0.25 mg HS PO Last administered on 01/23/17 20:41; Admin Dose 0.25 MG; Start 01/18/17 at 21:00 Tamsulosin HCl (Flomax) 0.4 mg HS PO Last administered on 01/23/17 20:41; Admin Dose 0.4 MG; Start 01/18/17 at 21:00 Atorvastatin Calcium (Lipitor) 5 mg QHS PO Last administered on 01/23/17 20:41 ; Admin Dose 5 MG; Start 01/18/17 at 21:00 Risperidone (Risperdal) 2 mg BID PO Last administered on 01/24/17 08:41; Admin Dose 2 MG; Start 01/18/17 at 00:30 Hydromorphone HCl (Dilaudid) 0.5 mg Q4H PRN IV PAIN Last administered on 07:32; Admin Dose 0.5 MG; Start 01/18/17 at 00:30 Morphine Sulfate (morphine) 4 mg Q4H PRN IV pain Last administered on 13:22; Admin Dose 4 MG; Start 01/18/17 at 14:00 Docusate Sodium 250 mg 250 mg DAILY PO Last administered on 01/24/17 08:42; Admin Dose 250 MG; Start 01/19/17 at 09:00 Sodium Chloride (NS) 1,000 ml @ 100 mls/hr Q10H IV Last administered on 12:38; Admin Dose 100 MLS/HR; Start 01/18/17 at 14:30 Oxycodone HCl 10 mg 10 mg BID PO Last administered on 01/24/17 08:41; Admin Dose 10 MG; Start 01/18/17 at 14:23 Piperacillin Sod/ Tazobactam Sod 100 ml @ 25 mls/hr TID@06,14,22 IVPB Last administered on 01/24/17 05:28; Admin Dose 25 MLS/HR; Start 01/20/17 at 14:00 Ferric Sodium Gluconate Complex/ Sodium Chloride (Ferrlecit/NS) 110 ml @ 110 mls/hr Q24H IVPB Last administered on 01/23/17 15:37; Admin Dose 110 MLS/HR; Start 01/20/17 at 15:30; Stop 01/24/17 at 16:29 Zinc Sulfate (Zinc Sulfate) 220 mg DAILY PO Last administered on 01/24/17 08: 42; Admin Dose 220 MG; Start 01/20/17 at 13:00 Polyethylene Glycol (Miralax) 8.5 gm DAILY PO Last administered on 01/24/17 08 :40; Admin Dose 8.5 GM; Start 01/21/17 at 09:00 Zolpidem Tartrate (Ambien) 5 mg HS PRN PO INSOMNIA Last administered on 23:55; Admin Dose 5 MG; Start 01/21/17 at 23:30 Sodium Hypochlorite (Dakin'S (1/4 Strength)) 1 applic DAILY IRR Last administered on 01/24/17 08:50; Admin Dose 1 APPLIC; Start 01/23/17 at 09:00 Collagenase 1 applic 1 applic DAILY TOP Last administered on 01/23/17 13:23; Admin Dose 1 APPLIC; Start 01/23/17 at 09:00 Vancomycin HCl (Vancocin) 250 ml @ 125 mls/hr Q24H IVPB ; Start 01/24/17 at 16: 00 DAVID ANGELO Jan 24, 2017 15:03
[2017-01-24 15:23] VITALS: BP 166/96; RESP 20
[2017-01-24] MEDS: clonAZEPAM 0.5 MG TAB PO PRN (15:55)
[2017-01-24] MEDS ORDERED: MAGNESIUM SULFATE 3 GM in SOD CHLORIDE 0.9% 100 ML IVPB ONE (16:00)
[2017-01-24] MEDS ORDERED: VANCOMYCIN 1 GM in NS 250 ML IVPB SCH (16:00)
[2017-01-24] MEDS: morphine 4 MG/ML VIAL IV PRN ×2 (16:33→20:36)
--- NOTE | 2017-01-24 17:29 | CONS ---
Date/Time of Note Date/Time of Note DATE: 01/24/17 TIME: 17:28 Assessment/Plan Assessment/Plan Chief Complaint/Hosp Course Awake, no fevers, looks comfortable Microbiology: Blood cultures negative urine culture growing Enterobacter, wound culture growing E. coli Antibiotics: Vancomycin and Zosyn Physical examination: Well-developed fragile elderly man who is awake in no distress. Head atraumatic normocephalic, sclera nonicteric. Neck is supple trachea midline. Chest rise symmetrical breath sounds clear bilaterally. No shortness of breath. Heart: S1, S2. Abdomen soft, bowel tones present. Extremities no cyanosis. Skin was unstageable sacral wound. Assessment: 1. Unstageable sacral wound, status post debridement 2. Urinary tract infection 3. Acute on chronic anemia 4. Acute renal failure possible chronic kidney disease 5. History of hepatitis C virus Plan: Remains stable, will change antibiotics to oral Levaquin, continue local wound care per surgical recommendations, off load, optimize nutrition continue probiotics Discussed with RN Problems: Consultation Date/Type/Reason Admit Date/Time Jan 17, 2017 at 21:06 Initial Consult Date 01/19/17 Type of Consultation: id Exam/Review of Systems Vital Signs Vitals Vital Signs Date Time Temp Pulse Resp B/P Pulse Ox O2 Delivery O2 Flow Rate FiO2 01/24/17 15:23 97.8 84 20 166/96 98 01/23/17 14:45 Room Air Intake and Output 01/23/17 01/23/17 01/24/17 15:00 23:00 07:00 Intake Total 900 ml 1830 ml 1300 ml Output Total 2000 ml 1900 ml Balance 900 ml -170 ml -600 ml Results Result Diagram: 01/24/17 0506 01/24/17 0506 Results 24 hrs Laboratory Tests Test 01/23/17 22:48 01/24/17 05:06 Vancomycin Level Trough 10.7 White Blood Count 4.4 L Red Blood Count 3.11 L Hemoglobin 9.8 L Hematocrit 30.1 L Mean Corpuscular Volume 96.8 Mean Corpuscular Hemoglobin 31.5 Mean Corpuscular Hemoglobin Concent 32.6 Red Cell Distribution Width 14.2 Platelet Count 146 Mean Platelet Volume 9.4 Neutrophils % 70.1 Lymphocytes % 18.9 Monocytes % 8.2 Eosinophils % 1.6 Basophils % 0.5 Nucleated Red Blood Cells % 0.0 Neutrophils # 3.1 Lymphocytes # 0.8 Monocytes # 0.4 Eosinophils # 0.1 Basophils # 0.0 Nucleated Red Blood Cells # 0.0 Sodium Level 147 H Potassium Level 3.7 Chloride Level 113 H Carbon Dioxide Level 23 Anion Gap 15 Blood Urea Nitrogen 12 Creatinine 1.71 H Glucose Level 92 Calcium Level 7.9 L Magnesium Level 1.5 L Medications Medications Current Medications Aripiprazole (Abilify) 5 mg DAILY PO Last administered on 01/24/17 08:41; Admin Dose 5 MG; Start 01/18/17 at 09:00 Aspirin (Halfprin) 81 mg DAILY PO Last administered on 01/24/17 08:42; Admin Dose 81 MG; Start 01/18/17 at 09:00 Buspirone HCl (Buspar) 10 mg TID PO Last administered on 01/24/17 16:24; Admin Dose 10 MG; Start 01/18/17 at 09:00 Clonazepam (Klonopin) 1 mg BID PRN PO ANXIETY Last administered on 01/24/17 15 :55; Admin Dose 1 MG; Start 01/18/17 at 00:30 Duloxetine HCl (Cymbalta) 120 mg DAILY PO Last administered on 01/24/17 08:42 ; Admin Dose 120 MG; Start 01/18/17 at 09:00 Folic Acid (Folic Acid) 1 mg DAILY PO Last administered on 01/24/17 08:42; Admin Dose 1 MG; Start 01/18/17 at 09:00 Pregabalin (Lyrica) 50 mg BID PO Last administered on 01/24/17 08:41; Admin Dose 50 MG; Start 01/18/17 at 09:00 Ropinirole HCl (Requip) 0.25 mg HS PO Last administered on 01/23/17 20:41; Admin Dose 0.25 MG; Start 01/18/17 at 21:00 Tamsulosin HCl (Flomax) 0.4 mg HS PO Last administered on 01/23/17 20:41; Admin Dose 0.4 MG; Start 01/18/17 at 21:00 Atorvastatin Calcium (Lipitor) 5 mg QHS PO Last administered on 01/23/17 20:41 ; Admin Dose 5 MG; Start 01/18/17 at 21:00 Risperidone (Risperdal) 2 mg BID PO Last administered on 01/24/17 08:41; Admin Dose 2 MG; Start 01/18/17 at 00:30 Hydromorphone HCl (Dilaudid) 0.5 mg Q4H PRN IV PAIN Last administered on 07:32; Admin Dose 0.5 MG; Start 01/18/17 at 00:30 Morphine Sulfate (morphine) 4 mg Q4H PRN IV pain Last administered on 16:33; Admin Dose 4 MG; Start 01/18/17 at 14:00 Docusate Sodium 250 mg 250 mg DAILY PO Last administered on 01/24/17 08:42; Admin Dose 250 MG; Start 01/19/17 at 09:00 Sodium Chloride (NS) 1,000 ml @ 100 mls/hr Q10H IV Last administered on 12:38; Admin Dose 100 MLS/HR; Start 01/18/17 at 14:30 Oxycodone HCl 10 mg 10 mg BID PO Last administered on 01/24/17 08:41; Admin Dose 10 MG; Start 01/18/17 at 14:23 Piperacillin Sod/ Tazobactam Sod (Zosyn 3.375gm/ 100 ml (Pmx)) 100 ml @ 25 mls/ hr TID@06,14,22 IVPB Last administered on 01/24/17 16:32; Admin Dose 25 MLS/HR ; Start 01/20/17 at 14:00 Zinc Sulfate (Zinc Sulfate) 220 mg DAILY PO Last administered on 01/24/17 08: 42; Admin Dose 220 MG; Start 01/20/17 at 13:00 Polyethylene Glycol (Miralax) 8.5 gm DAILY PO Last administered on 01/24/17 08 :40; Admin Dose 8.5 GM; Start 01/21/17 at 09:00 Zolpidem Tartrate (Ambien) 5 mg HS PRN PO INSOMNIA Last administered on 23:55; Admin Dose 5 MG; Start 01/21/17 at 23:30 Sodium Hypochlorite (Dakin'S (1/4 Strength)) 1 applic DAILY IRR Last administered on 01/24/17 08:50; Admin Dose 1 APPLIC; Start 01/23/17 at 09:00 Collagenase 1 applic 1 applic DAILY TOP Last administered on 01/23/17 13:23; Admin Dose 1 APPLIC; Start 01/23/17 at 09:00 Vancomycin HCl 250 ml @ 125 mls/hr Q24H IVPB Last administered on 01/24/17 16 :33; Admin Dose 125 MLS/HR; Start 01/24/17 at 16:00 Magnesium Sulfate/ Sodium Chloride (Magnesium Sulfate/NS) 106 ml @ 35.333 mls/ hr ONCE ONCE IVPB ; Start 01/24/17 at 16:00; Stop 01/24/17 at 18:59 LORI ROBLERO NP Jan 24, 2017 17:29
[2017-01-24] MEDS ORDERED: LEVOFLOXACIN 500 MG TAB PO SCH (18:00)
[2017-01-24] MEDS: SOD FERRIC GLUC COMPLX 125 MG in SOD CHLORIDE 0.9% 100 ML IVPB SCH (18:17)
[2017-01-24] MEDS: COLLAGENASE 30 GM TUBE TOP SCH (18:19)
[2017-01-24] MEDS: LEVOFLOXACIN 250 MG TAB PO SCH (18:21)
[2017-01-24 19:51] VITALS: BP 130/70; RESP 18
[2017-01-24] MEDS: ROPINIROLE 0.25 MG TAB PO SCH (20:29)
[2017-01-24] MEDS: ATORVASTATIN 10 MG TAB PO SCH (20:30)
[2017-01-24] MEDS: TAMSULOSIN (SR) 0.4 MG CAP PO SCH (20:30)
[2017-01-24] MEDS: L ACIDOPHIL/B LACTIS/B LONGUM CAPSULE PO SCH (21:00)
[2017-01-24] MEDS: ZOLPIDEM 5 MG TAB PO PRN (21:43)
--- NOTE | 2017-01-24 23:26 | PN ---
Date/Time of Note Date/Time of Note DATE: 01/24/17 TIME: 23:19 Assessment/Plan Lines/Catheters IV Catheter Type (from Nrs): Peripheral IV Chambers in Place (from Nrs): No Assessment/Plan Chief Complaint/Hosp Course 1. Sacral wound: s/p debridement 01/22, periwound redness improved -local care -frequent turning and repositioning -specialty bed -nutrition optimization 2. Sacral cellulitis: 2/2 above: CT: cellulitis surrounding an ulceration which extends into the subcutaneous fat abutting the dorsal surface of the coccyx without evidence of an associated subcutaneous abscess or osteomyelitis;afebrile ; periwound erythema improving; s/p debridement -as above -abx 3. Leukocytopenia: likely 2/2 above stable -supportive -as above 4. Normocytic anemia: no acute bleed noted:s/p PRBC transfusion 01/19; stable -monitor -transfuse as needed 5. Thrombocytopenia 2/2 #2; resolved -bleeding precautions -supportive 6. Hyponatremia: now with hypernatremia -judicious fluid management 7.ILYA: bilateral hydronephrosis with bilateral renal cyst; cr improved -judicious fluid management avoid nephrotoxic meds -renal dosing for meds 8. Hypocalcemia with hypoalbuminemia: likely 2/2 malnutrition, improved -nutrition optimization -optimize lytes 9. UTI: urine cx: enterobacter cloacae; afebrile -abx per sensitivity 10. Hypomagnesemia -replete and monitor Patient seen and examined in collaboration with Dr. El Root Problems: Subjective 24 Hr Interval Summary s/p debridement. Pain to sacrum improved. min/mod drainage from wounds. Awaiting placement. No fevers, chills, gore, dizziness, cp, palpitations, sob, cough, n/v/d. + bowel function Exam/Review of Systems Vital Signs Vitals Vital Signs Date Time Temp Pulse Resp B/P Pulse Ox O2 Delivery O2 Flow Rate FiO2 01/24/17 19:51 98.0 82 18 130/70 99 01/23/17 14:45 Room Air Intake and Output 01/23/17 01/23/17 01/24/17 15:00 23:00 07:00 Intake Total 900 ml 1830 ml 1300 ml Output Total 2000 ml 1900 ml Balance 900 ml -170 ml -600 ml Exam Free Text/Dictation Constitutional: alert, oriented Psych: normal mood Head: atraumatic, normocephalic Eyes: PERRL, nl lids, nl sclera ENMT: mucosa pink and moist, nl nasal mucosa & septum Neck: non-tender, supple Respiratory: normal air movement Cardiovascular: nl pulses, regular rate and rhythm Gastrointestinal: non-tender, soft Musculoskeletal: nl extremities to inspection Extremities: normal pulses Neurological: nl speech, nl strength Skin: other (sacral wound with min slough, serosanguineous drainage, periwound erythema improved) Lymph: nl lymph nodes Results Result Diagram: 01/24/17 0506 01/24/17 0506 DORINA LITTLEJOHN NP Jan 24, 2017 23:26
[2017-01-25 02:28] VITALS: BP 136/78; RESP 18
[2017-01-25] MEDS: morphine 4 MG/ML VIAL IV PRN (03:12)
[2017-01-25] MEDS: LEVOFLOXACIN 250 MG TAB PO SCH (05:36)
[2017-01-25 06:22] LABS: ADD SCAN DIFF NO
[2017-01-25 06:28] LABS: BASOPHILS % 0.5 % (0.0-2.0); EOSINOPHILS # 0.1 10^3/ul (0.0-0.5); EOSINOPHILS % 1.9 % (0.0-7.0); HEMATOCRIT 29.5 % (42.0-52.0); HEMOGLOBIN 9.1 g/dl (14.0-18.0); LYMPHOCYTES # 0.9 10^3/ul (0.8-2.9); LYMPHOCYTES % 24.3 % (15.0-51.0); MEAN CORPUSCULAR HGB CONC 30.8 g/dl (32.0-37.0); MEAN CORPUSCULAR VOLUME 100.3 fl (82.0-101.0); MEAN PLATELET VOLUME 9.9 fl (7.4-10.4); MONOCYTE # 0.3 10^3/ul (0.3-0.9); MONOCYTES % 8.6 % (0.0-11.0); NEUTROPHIL # 2.4 10^3/ul (1.6-7.5); NEUTROPHILS % 64.2 % (39.0-77.0); PLATELET COUNT 109 10^3/UL (140-415); RED BLOOD COUNT 2.94 10^6/ul (4.70-6.10); RED CELL DISTRIBUTION WIDTH 14.4 % (11.5-14.5); WHITE BLOOD COUNT 3.7 10^3/ul (4.8-10.8)
[2017-01-25] MEDS: SOD CHLORIDE 0.9% 1,000 ML IV SCH ×3 (06:30→19:56)
[2017-01-25 07:09] LABS: CALCIUM 8.2 mg/dl (8.4-10.2); CREATININE 1.8 mg/dl (0.61-1.24); MAGNESIUM 2.2 mg/dl (1.7-2.5)
[2017-01-25 08:39] VITALS: BP 172/80; RESP 18
[2017-01-25] MEDS: oxyCODONE (CR) 10 MG TAB [oxyCONTIN] PO SCH ×2 (09:12→21:18)
[2017-01-25] MEDS: clonAZEPAM 0.5 MG TAB PO PRN ×2 (09:17→21:18)
[2017-01-25] MEDS: POLYETHYLENE GLYCOL 17 GM PACKET PO SCH (09:17)
[2017-01-25] MEDS: DOCUSATE SODIUM 250 MG CAP PO SCH (09:18)
[2017-01-25] MEDS: RISPERIDONE 2 MG TAB PO SCH ×2 (09:18→21:18)
[2017-01-25] MEDS: ZINC SULFATE 220 MG CAP PO SCH (09:18)
[2017-01-25] MEDS: PREGABALIN 25 MG CAP PO SCH ×2 (09:18→21:17)
[2017-01-25] MEDS: DULOXETINE 30 MG CAP DR PO SCH (09:18)
[2017-01-25] MEDS: ARIPIPRAZOLE 5 MG TAB PO SCH (09:18)
[2017-01-25] MEDS: FOLIC ACID 1 MG TAB PO SCH (09:19)
[2017-01-25] MEDS: BUSPIRONE 10 MG TAB PO SCH ×3 (09:19→21:18)
[2017-01-25] MEDS: ASPIRIN (EC) 81 MG TAB PO SCH (09:19)
[2017-01-25] MEDS: SODIUM HYPOCHLORITE 0.125% 473 ML BTL IRR SCH (09:19)
[2017-01-25] MEDS: COLLAGENASE 30 GM TUBE TOP SCH (09:20)
[2017-01-25] MEDS: L ACIDOPHIL/B LACTIS/B LONGUM CAPSULE PO SCH ×2 (10:25→21:19)
--- NOTE | 2017-01-25 12:40 | PN ---
Date/Time of Note Date/Time of Note DATE: 01/25/17 TIME: 12:37 Assessment/Plan Lines/Catheters IV Catheter Type (from [facility]): Peripheral IV Chambers in Place (from [facility]): No Assessment/Plan Chief Complaint/Hosp Course 1. Sacral wound: s/p debridement 01/22, periwound redness improved -local care -frequent turning and repositioning -specialty bed -nutrition optimization 2. Sacral cellulitis: 2/2 above: CT: cellulitis surrounding an ulceration which extends into the subcutaneous fat abutting the dorsal surface of the coccyx without evidence of an associated subcutaneous abscess or osteomyelitis;afebrile ; periwound erythema improving; s/p debridement -as above -abx 3. Leukocytopenia: likely 2/2 above worse tody -supportive -as above 4. Normocytic anemia: no acute bleed noted:s/p PRBC transfusion 01/19; stable -monitor -transfuse as needed 5. Thrombocytopenia 2/2 #2; resolved -bleeding precautions -supportive 6. Hyponatremia: now with hypernatremia -judicious fluid management 7.ILYA: bilateral hydronephrosis with bilateral renal cyst; cr improved -judicious fluid management avoid nephrotoxic meds -renal dosing for meds 8. Hypocalcemia with hypoalbuminemia: likely 2/2 malnutrition, improved -nutrition optimization -optimize lytes 9. UTI: urine cx: enterobacter cloacae; afebrile -abx per sensitivity 10. Hypomagnesemia -replete and monitor Patient seen and examined in collaboration with Dr. El Root Problems: Subjective 24 Hr Interval Summary Feels well. Pain/discomfort in lower back improved. No gore, sz, dizziness, sob, cp, palpitations, n/v/d, fevers, chills. Exam/Review of Systems Vital Signs Vitals Vital Signs Date Time Temp Pulse Resp B/P Pulse Ox O2 Delivery O2 Flow Rate FiO2 01/25/17 08:39 97.9 82 18 172/80 99 01/23/17 14:45 Room Air Intake and Output 01/24/17 01/24/17 01/25/17 15:00 23:00 07:00 Intake Total 2780 ml 2300 ml Output Total 2100 ml 3000 ml Balance 680 ml -700 ml Exam Free Text/Dictation Constitutional: alert, oriented Psych: normal mood Head: atraumatic, normocephalic Eyes: PERRL, nl lids, nl sclera ENMT: mucosa pink and moist, nl nasal mucosa & septum Neck: non-tender, supple Respiratory: normal air movement Cardiovascular: nl pulses, regular rate and rhythm Gastrointestinal: non-tender, soft Musculoskeletal: nl extremities to inspection Extremities: normal pulses Neurological: nl speech, nl strength Skin: other (sacral wound with min slough, serosanguineous drainage, periwound erythema improved) Lymph: nl lymph nodes Results Result Diagram: 01/25/17 0537 01/25/17 0537 DORINA LITTLEJOHN NP Jan 25, 2017 12:40
--- NOTE | 2017-01-25 13:11 | CONS ---
Date/Time of Note Date/Time of Note DATE: 01/25/17 TIME: 13:10 Assessment/Plan Assessment/Plan Chief Complaint/Hosp Course Awake, no fevers, looks comfortable Microbiology: Blood cultures negative urine culture growing Enterobacter, wound culture growing E. coli Antibiotics: Levaquin Physical examination: Well-developed fragile elderly man who is awake in no distress. Head atraumatic normocephalic, sclera nonicteric. Neck is supple trachea midline. Chest rise symmetrical breath sounds clear bilaterally. No shortness of breath. Heart: S1, S2. Abdomen soft, bowel tones present. Extremities no cyanosis. Skin was unstageable sacral wound. Assessment: 1. Unstageable sacral wound, status post debridement 2. Urinary tract infection 3. Acute on chronic anemia 4. Acute renal failure possible chronic kidney disease 5. History of hepatitis C virus Plan: Remains stable, continue abx, local wound care per surgical recommendations, off load, optimize nutrition continue probiotics Discussed with RN Problems: Consultation Date/Type/Reason Admit Date/Time Jan 17, 2017 at 21:06 Initial Consult Date 01/19/17 Type of Consultation: id Exam/Review of Systems Vital Signs Vitals Vital Signs Date Time Temp Pulse Resp B/P Pulse Ox O2 Delivery O2 Flow Rate FiO2 01/25/17 08:39 97.9 82 18 172/80 99 01/23/17 14:45 Room Air Intake and Output 01/24/17 01/24/17 01/25/17 15:00 23:00 07:00 Intake Total 2780 ml 2300 ml Output Total 2100 ml 3000 ml Balance 680 ml -700 ml Results Result Diagram: 01/25/17 0537 01/25/17 0537 Results 24 hrs Laboratory Tests Test 01/25/17 05:37 White Blood Count 3.7 L Red Blood Count 2.94 L Hemoglobin 9.1 L Hematocrit 29.5 L Mean Corpuscular Volume 100.3 Mean Corpuscular Hemoglobin 31.0 Mean Corpuscular Hemoglobin Concent 30.8 L Red Cell Distribution Width 14.4 Platelet Count 109 #L Mean Platelet Volume 9.9 Neutrophils % 64.2 Lymphocytes % 24.3 Monocytes % 8.6 Eosinophils % 1.9 Basophils % 0.5 Nucleated Red Blood Cells % 0.0 Neutrophils # 2.4 Lymphocytes # 0.9 Monocytes # 0.3 Eosinophils # 0.1 Basophils # 0.0 Nucleated Red Blood Cells # 0.0 Sodium Level 147 H Potassium Level 5.0 Chloride Level 110 Carbon Dioxide Level 24 Anion Gap 18 H Blood Urea Nitrogen 15 Creatinine 1.80 H Glucose Level 89 Calcium Level 8.2 L Magnesium Level 2.2 Medications Medications Current Medications Aripiprazole (Abilify) 5 mg DAILY PO Last administered on 01/25/17 09:18; Admin Dose 5 MG; Start 01/18/17 at 09:00 Aspirin (Halfprin) 81 mg DAILY PO Last administered on 01/25/17 09:19; Admin Dose 81 MG; Start 01/18/17 at 09:00 Buspirone HCl (Buspar) 10 mg TID PO Last administered on 01/25/17 09:19; Admin Dose 10 MG; Start 01/18/17 at 09:00 Clonazepam (Klonopin) 1 mg BID PRN PO ANXIETY Last administered on 01/25/17 09 :17; Admin Dose 1 MG; Start 01/18/17 at 00:30 Duloxetine HCl (Cymbalta) 120 mg DAILY PO Last administered on 01/25/17 09:18 ; Admin Dose 120 MG; Start 01/18/17 at 09:00 Folic Acid (Folic Acid) 1 mg DAILY PO Last administered on 01/25/17 09:19; Admin Dose 1 MG; Start 01/18/17 at 09:00 Pregabalin (Lyrica) 50 mg BID PO Last administered on 01/25/17 09:18; Admin Dose 50 MG; Start 01/18/17 at 09:00 Ropinirole HCl (Requip) 0.25 mg HS PO Last administered on 01/24/17 20:29; Admin Dose 0.25 MG; Start 01/18/17 at 21:00 Tamsulosin HCl (Flomax) 0.4 mg HS PO Last administered on 01/24/17 20:30; Admin Dose 0.4 MG; Start 01/18/17 at 21:00 Atorvastatin Calcium (Lipitor) 5 mg QHS PO Last administered on 01/24/17 20:30 ; Admin Dose 5 MG; Start 01/18/17 at 21:00 Risperidone (Risperdal) 2 mg BID PO Last administered on 01/25/17 09:18; Admin Dose 2 MG; Start 01/18/17 at 00:30 Hydromorphone HCl (Dilaudid) 0.5 mg Q4H PRN IV PAIN Last administered on 07:32; Admin Dose 0.5 MG; Start 01/18/17 at 00:30 Morphine Sulfate (morphine) 4 mg Q4H PRN IV pain Last administered on 03:12; Admin Dose 4 MG; Start 01/18/17 at 14:00 Docusate Sodium 250 mg 250 mg DAILY PO Last administered on 01/25/17 09:18; Admin Dose 250 MG; Start 01/19/17 at 09:00 Sodium Chloride (NS) 1,000 ml @ 100 mls/hr Q10H IV Last administered on 09:20; Admin Dose 100 MLS/HR; Start 01/18/17 at 14:30 Oxycodone HCl (Oxycontin) 10 mg BID PO Last administered on 01/25/17 09:12; Admin Dose 10 MG; Start 01/18/17 at 14:23 Zinc Sulfate (Zinc Sulfate) 220 mg DAILY PO Last administered on 01/25/17 09: 18; Admin Dose 220 MG; Start 01/20/17 at 13:00 Polyethylene Glycol (Miralax) 8.5 gm DAILY PO Last administered on 01/25/17 09 :17; Admin Dose 8.5 GM; Start 01/21/17 at 09:00 Zolpidem Tartrate (Ambien) 5 mg HS PRN PO INSOMNIA Last administered on 21:43; Admin Dose 5 MG; Start 01/21/17 at 23:30 Sodium Hypochlorite (Dakin'S (1/4 Strength)) 1 applic DAILY IRR Last administered on 01/25/17 09:19; Admin Dose 1 APPLIC; Start 01/23/17 at 09:00 Collagenase (Santyl) 1 applic DAILY TOP Last administered on 01/25/17 09:20; Admin Dose 1 APPLIC; Start 01/23/17 at 09:00 Lactobacillus Acidophilus (Florajen3 Capsule) 1 each BID PO Last administered on 01/25/17 10:25; Admin Dose 1 EACH; Start 01/24/17 at 21:00 Levofloxacin (Levaquin) 250 mg DAILY@06 PO Last administered on 01/25/17 05:36 ; Admin Dose 250 MG; Start 01/25/17 at 06:00 LORI ROBLERO NP Jan 25, 2017 13:11
[2017-01-25 14:08] VITALS: BP 136/70; RESP 19
[2017-01-25] MEDS: HYDROmorphONE 1 MG/ML SYG IV PRN ×2 (14:36→22:54)
--- NOTE | 2017-01-25 15:52 | PN ---
Date/Time of Note Date/Time of Note DATE: 01/25/17 TIME: 15:51 Assessment/Plan VTE Prophylaxis VTE Prophylaxis Intervention: SCD's Lines/Catheters IV Catheter Type (from Nrsg): Peripheral IV Urinary Cath still in place: No Assessment/Plan Chief Complaint/Hosp Course #1 Cellulitis and ulceration of the buttocks region status post Debridement with surgery Continue abx / supportive care / PT / pain control, patient may need a wound VAC #2 Enterobacter Urinary tract infection Likely associated with #4 #3 Mental health/possible schizophrenia #4 Hx of BPH with USS findings of mild urinary retention and renal cysts: * retention may be associated with chronic opioid use #5 Degenerative joint disease with Chronic back pain and hx of back:, #6 Hyponatremia: 2/2 dehydration? #7 ILYA r/o CKD, ?Combination of Pre and post renal : improving slowly #8 Hepatitis C associated chronic liver disease with Pancytopenia , mild coagulopathy, and elevated transaminases. #9 Iron deficiency with Pancytopenia : 5 day IV iron therapy DVT and GI prophylaxis: SCD, Protonix Discharge planning: sales administration manager to arrange for placement, patient's assisted living may not take patient back with open wound Problems: Subjective 24 Hr Interval Summary Skin: skin lesions Exam/Review of Systems Vital Signs Vitals Vital Signs Date Time Temp Pulse Resp B/P Pulse Ox O2 Delivery O2 Flow Rate FiO2 01/25/17 14:08 97.3 79 19 136/70 98 01/23/17 14:45 Room Air Intake and Output 01/24/17 01/24/17 01/25/17 15:00 23:00 07:00 Intake Total 2780 ml 2300 ml Output Total 2100 ml 3000 ml Balance 680 ml -700 ml Exam Constitutional: alert Respiratory: clear to auscultation Cardiovascular: regular rate and rhythm Gastrointestinal: soft, No distended Musculoskeletal: nl extremities to inspection Results Result Diagram: 01/25/17 0537 01/25/17 0537 Results 24 hrs Laboratory Tests Test 01/25/17 05:37 White Blood Count 3.7 L Red Blood Count 2.94 L Hemoglobin 9.1 L Hematocrit 29.5 L Mean Corpuscular Volume 100.3 Mean Corpuscular Hemoglobin 31.0 Mean Corpuscular Hemoglobin Concent 30.8 L Red Cell Distribution Width 14.4 Platelet Count 109 #L Mean Platelet Volume 9.9 Neutrophils % 64.2 Lymphocytes % 24.3 Monocytes % 8.6 Eosinophils % 1.9 Basophils % 0.5 Nucleated Red Blood Cells % 0.0 Neutrophils # 2.4 Lymphocytes # 0.9 Monocytes # 0.3 Eosinophils # 0.1 Basophils # 0.0 Nucleated Red Blood Cells # 0.0 Sodium Level 147 H Potassium Level 5.0 Chloride Level 110 Carbon Dioxide Level 24 Anion Gap 18 H Blood Urea Nitrogen 15 Creatinine 1.80 H Glucose Level 89 Calcium Level 8.2 L Magnesium Level 2.2 Medications Medications Current Medications Aripiprazole (Abilify) 5 mg DAILY PO Last administered on 01/25/17 09:18; Admin Dose 5 MG; Start 01/18/17 at 09:00 Aspirin (Halfprin) 81 mg DAILY PO Last administered on 01/25/17 09:19; Admin Dose 81 MG; Start 01/18/17 at 09:00 Buspirone HCl (Buspar) 10 mg TID PO Last administered on 01/25/17 14:35; Admin Dose 10 MG; Start 01/18/17 at 09:00 Clonazepam (Klonopin) 1 mg BID PRN PO ANXIETY Last administered on 01/25/17 09 :17; Admin Dose 1 MG; Start 01/18/17 at 00:30 Duloxetine HCl (Cymbalta) 120 mg DAILY PO Last administered on 01/25/17 09:18 ; Admin Dose 120 MG; Start 01/18/17 at 09:00 Folic Acid (Folic Acid) 1 mg DAILY PO Last administered on 01/25/17 09:19; Admin Dose 1 MG; Start 01/18/17 at 09:00 Pregabalin (Lyrica) 50 mg BID PO Last administered on 01/25/17 09:18; Admin Dose 50 MG; Start 01/18/17 at 09:00 Ropinirole HCl (Requip) 0.25 mg HS PO Last administered on 01/24/17 20:29; Admin Dose 0.25 MG; Start 01/18/17 at 21:00 Tamsulosin HCl (Flomax) 0.4 mg HS PO Last administered on 01/24/17 20:30; Admin Dose 0.4 MG; Start 01/18/17 at 21:00 Atorvastatin Calcium (Lipitor) 5 mg QHS PO Last administered on 01/24/17 20:30 ; Admin Dose 5 MG; Start 01/18/17 at 21:00 Risperidone (Risperdal) 2 mg BID PO Last administered on 01/25/17 09:18; Admin Dose 2 MG; Start 01/18/17 at 00:30 Hydromorphone HCl (Dilaudid) 0.5 mg Q4H PRN IV PAIN Last administered on 14:36; Admin Dose 0.5 MG; Start 01/18/17 at 00:30 Morphine Sulfate (morphine) 4 mg Q4H PRN IV pain Last administered on 03:12; Admin Dose 4 MG; Start 01/18/17 at 14:00 Docusate Sodium 250 mg 250 mg DAILY PO Last administered on 01/25/17 09:18; Admin Dose 250 MG; Start 01/19/17 at 09:00 Sodium Chloride (NS) 1,000 ml @ 100 mls/hr Q10H IV Last administered on 09:20; Admin Dose 100 MLS/HR; Start 01/18/17 at 14:30 Oxycodone HCl (Oxycontin) 10 mg BID PO Last administered on 01/25/17 09:12; Admin Dose 10 MG; Start 01/18/17 at 14:23 Zinc Sulfate (Zinc Sulfate) 220 mg DAILY PO Last administered on 01/25/17 09: 18; Admin Dose 220 MG; Start 01/20/17 at 13:00 Polyethylene Glycol (Miralax) 8.5 gm DAILY PO Last administered on 01/25/17 09 :17; Admin Dose 8.5 GM; Start 01/21/17 at 09:00 Zolpidem Tartrate (Ambien) 5 mg HS PRN PO INSOMNIA Last administered on 21:43; Admin Dose 5 MG; Start 01/21/17 at 23:30 Sodium Hypochlorite (Dakin'S (1/4 Strength)) 1 applic DAILY IRR Last administered on 01/25/17 09:19; Admin Dose 1 APPLIC; Start 01/23/17 at 09:00 Collagenase (Santyl) 1 applic DAILY TOP Last administered on 01/25/17 09:20; Admin Dose 1 APPLIC; Start 01/23/17 at 09:00 Lactobacillus Acidophilus (Florajen3 Capsule) 1 each BID PO Last administered on 01/25/17 10:25; Admin Dose 1 EACH; Start 01/24/17 at 21:00 Levofloxacin (Levaquin) 250 mg DAILY@06 PO Last administered on 01/25/17 05:36 ; Admin Dose 250 MG; Start 01/25/17 at 06:00 DAVID ANGELO Jan 25, 2017 15:51
[2017-01-25 20:05] VITALS: BP 150/74; RESP 18
[2017-01-25] MEDS: TAMSULOSIN (SR) 0.4 MG CAP PO SCH (21:17)
[2017-01-25] MEDS: ATORVASTATIN 10 MG TAB PO SCH (21:17)
[2017-01-25] MEDS: ROPINIROLE 0.25 MG TAB PO SCH (21:19)
[2017-01-26 02:00] VITALS: BP 144/80; RESP 18
[2017-01-26 05:52] LABS: CALCIUM 8.2 mg/dl (8.4-10.2); CREATININE 1.64 mg/dl (0.61-1.24); POTASSIUM 4.6 mmol/L (3.5-5.1)
[2017-01-26] MEDS: SOD CHLORIDE 0.9% 1,000 ML IV SCH ×2 (06:04→16:44)
[2017-01-26] MEDS: LEVOFLOXACIN 250 MG TAB PO SCH (06:05)
[2017-01-26 07:42] VITALS: BP 156/86; RESP 18
[2017-01-26] MEDS: POLYETHYLENE GLYCOL 17 GM PACKET PO SCH (10:12)
[2017-01-26] MEDS: DULOXETINE 30 MG CAP DR PO SCH (10:12)
[2017-01-26] MEDS: RISPERIDONE 2 MG TAB PO SCH ×2 (10:13→21:16)
[2017-01-26] MEDS: ASPIRIN (EC) 81 MG TAB PO SCH (10:13)
[2017-01-26] MEDS: oxyCODONE (CR) 10 MG TAB [oxyCONTIN] PO SCH ×2 (10:13→21:17)
[2017-01-26] MEDS: PREGABALIN 25 MG CAP PO SCH ×2 (10:13→21:16)
[2017-01-26] MEDS: DOCUSATE SODIUM 250 MG CAP PO SCH (10:13)
[2017-01-26] MEDS: ZINC SULFATE 220 MG CAP PO SCH (10:13)
[2017-01-26] MEDS: ARIPIPRAZOLE 5 MG TAB PO SCH (10:13)
[2017-01-26] MEDS: FOLIC ACID 1 MG TAB PO SCH (10:13)
[2017-01-26] MEDS: L ACIDOPHIL/B LACTIS/B LONGUM CAPSULE PO SCH ×2 (10:14→21:17)
[2017-01-26] MEDS: clonAZEPAM 0.5 MG TAB PO PRN ×2 (10:14→21:21)
[2017-01-26] MEDS: BUSPIRONE 10 MG TAB PO SCH ×3 (10:14→21:16)
--- NOTE | 2017-01-26 12:55 | PN ---
Date/Time of Note Date/Time of Note DATE: 01/26/17 TIME: 12:50 Assessment/Plan Lines/Catheters IV Catheter Type (from Nrs): Saline Lock Chambers in Place (from Nrs): No Assessment/Plan Chief Complaint/Hosp Course 1. Sacral wound: s/p debridement 01/22, periwound redness improved -local care -frequent turning and repositioning -specialty bed -nutrition optimization 2. Sacral cellulitis: 2/2 above: CT: cellulitis surrounding an ulceration which extends into the subcutaneous fat abutting the dorsal surface of the coccyx without evidence of an associated subcutaneous abscess or osteomyelitis;afebrile ; periwound erythema improving; s/p debridement -as above -abx 3. Leukocytopenia: likely 2/2 above -supportive -as above 4. Normocytic anemia: no acute bleed noted:s/p PRBC transfusion 01/19; stable -monitor -transfuse as needed 5. Thrombocytopenia 2/2 #2; resolved -bleeding precautions -supportive 6. Hyponatremia: now with hypernatremia; improving -judicious fluid management 7.ILYA: bilateral hydronephrosis with bilateral renal cyst; cr improved -judicious fluid management avoid nephrotoxic meds -renal dosing for meds 8. Hypocalcemia with hypoalbuminemia: likely 2/2 malnutrition, improved -nutrition optimization -optimize lytes 9. UTI: urine cx: enterobacter cloacae; afebrile -abx per sensitivity 10. Hypomagnesemia; normalized -replete and monitor Patient seen and examined in collaboration with Dr. El Root Problems: Subjective 24 Hr Interval Summary Awaiting placement. Feels well. Pain/discomfort in lower back improved. No gore, sz, dizziness, sob, cp, palpitations, n/v/d, fevers, chills Exam/Review of Systems Vital Signs Vitals Vital Signs Date Time Temp Pulse Resp B/P Pulse Ox O2 Delivery O2 Flow Rate FiO2 01/26/17 07:42 98.0 81 18 156/86 99 01/23/17 14:45 Room Air Intake and Output 01/25/17 01/25/17 01/26/17 15:00 23:00 07:00 Intake Total 200 ml 1960 ml 1850 ml Output Total 1200 ml 2175 ml Balance 200 ml 760 ml -325 ml Exam Free Text/Dictation Constitutional: alert, oriented Psych: normal mood Head: atraumatic, normocephalic Eyes: PERRL, nl lids, nl sclera ENMT: mucosa pink and moist, nl nasal mucosa & septum Neck: non-tender, supple Respiratory: normal air movement Cardiovascular: nl pulses, regular rate and rhythm Gastrointestinal: non-tender, soft Musculoskeletal: nl extremities to inspection Extremities: normal pulses Neurological: nl speech, nl strength Skin: other (sacral wound with min slough, serosanguineous drainage, periwound erythema improved) Lymph: nl lymph nodes Results Result Diagram: 01/25/17 0537 01/26/17 0504 DORINA LITTLEJOHN NP Jan 26, 2017 12:55
[2017-01-26] MEDS: HYDROmorphONE 1 MG/ML SYG IV PRN ×2 (13:08→22:11)
[2017-01-26] MEDS: SODIUM HYPOCHLORITE 0.125% 473 ML BTL IRR SCH ×3 (13:10→22:30)
[2017-01-26] MEDS: COLLAGENASE 30 GM TUBE TOP SCH ×3 (13:10→22:30)
[2017-01-26 13:39] VITALS: BP 131/72; RESP 18
--- NOTE | 2017-01-26 14:30 | PN ---
Date/Time of Note Date/Time of Note DATE: 01/26/17 TIME: 14:28 Assessment/Plan VTE Prophylaxis VTE Prophylaxis Intervention: SCD's Lines/Catheters IV Catheter Type (from Nrs): Saline Lock Urinary Cath still in place: No Assessment/Plan Chief Complaint/Hosp Course #1 Cellulitis and ulceration of the buttocks region status post Debridement with surgery Continue abx / supportive care / PT / pain control, patient may need a wound VAC #2 Enterobacter Urinary tract infection Likely associated with #4 #3 Mental health/possible schizophrenia #4 Hx of BPH with USS findings of mild urinary retention and renal cysts: * retention may be associated with chronic opioid use #5 Degenerative joint disease with Chronic back pain and hx of back:, #6 Hyponatremia: 2/2 dehydration? #7 ILYA r/o CKD, ?Combination of Pre and post renal : improving slowly #8 Hepatitis C associated chronic liver disease with Pancytopenia , mild coagulopathy, and elevated transaminases. #9 Iron deficiency with Pancytopenia : 5 day IV iron therapy DVT and GI prophylaxis: SCD, Protonix Discharge planning: assistant grocery store manager to arrange for placement, patient's assisted living may not take patient back with open wound Problems: Subjective 24 Hr Interval Summary Constitutional: no complaints Exam/Review of Systems Vital Signs Vitals Vital Signs Date Time Temp Pulse Resp B/P Pulse Ox O2 Delivery O2 Flow Rate FiO2 01/26/17 13:39 98.2 88 18 131/72 99 01/23/17 14:45 Room Air Intake and Output 01/25/17 01/25/17 01/26/17 15:00 23:00 07:00 Intake Total 200 ml 1960 ml 1850 ml Output Total 1200 ml 2175 ml Balance 200 ml 760 ml -325 ml Exam Constitutional: alert Respiratory: clear to auscultation Cardiovascular: regular rate and rhythm Gastrointestinal: soft, No distended Musculoskeletal: nl extremities to inspection Results Result Diagram: 01/25/17 0537 01/26/17 0504 Results 24 hrs Laboratory Tests Test 01/26/17 05:04 Sodium Level 146 H Potassium Level 4.6 Chloride Level 111 H Carbon Dioxide Level 25 Anion Gap 15 Blood Urea Nitrogen 18 Creatinine 1.64 H Glucose Level 88 Calcium Level 8.2 L Medications Medications Current Medications Aripiprazole (Abilify) 5 mg DAILY PO Last administered on 01/26/17t 10:13; Admin Dose 5 MG; Start 7/12/17 at 09:00 Aspirin (Halfprin) 81 mg DAILY PO Last administered on 01/26/17 10:13; Admin Dose 81 MG; Start 01/18/17 at 09:00 Buspirone HCl (Buspar) 10 mg TID PO Last administered on 01/26/17 13:08; Admin Dose 10 MG; Start 01/18/17 at 09:00 Clonazepam (Klonopin) 1 mg BID PRN PO ANXIETY Last administered on 01/26/17 10 :14; Admin Dose 1 MG; Start 01/18/17 at 00:30 Duloxetine HCl (Cymbalta) 120 mg DAILY PO Last administered on 01/26/17 10:12 ; Admin Dose 120 MG; Start 01/18/17 at 09:00 Folic Acid (Folic Acid) 1 mg DAILY PO Last administered on 01/26/17 10:13; Admin Dose 1 MG; Start 01/18/17 at 09:00 Pregabalin (Lyrica) 50 mg BID PO Last administered on 01/26/17 10:13; Admin Dose 50 MG; Start 01/18/17 at 09:00 Ropinirole HCl (Requip) 0.25 mg HS PO Last administered on 01/25/17 21:19; Admin Dose 0.25 MG; Start 01/18/17 at 21:00 Tamsulosin HCl (Flomax) 0.4 mg HS PO Last administered on 01/25/17 21:17; Admin Dose 0.4 MG; Start 01/18/17 at 21:00 Atorvastatin Calcium (Lipitor) 5 mg QHS PO Last administered on 01/25/17 21:17 ; Admin Dose 5 MG; Start 01/18/17 at 21:00 Risperidone (Risperdal) 2 mg BID PO Last administered on 01/26/17 10:13; Admin Dose 2 MG; Start 01/18/17 at 00:30 Hydromorphone HCl (Dilaudid) 0.5 mg Q4H PRN IV PAIN Last administered on 13:08; Admin Dose 0.5 MG; Start 01/18/17 at 00:30 Morphine Sulfate (morphine) 4 mg Q4H PRN IV pain Last administered on 03:12; Admin Dose 4 MG; Start 01/18/17 at 14:00 Docusate Sodium 250 mg 250 mg DAILY PO Last administered on 01/26/17 10:13; Admin Dose 250 MG; Start 01/19/17 at 09:00 Sodium Chloride (NS) 1,000 ml @ 100 mls/hr Q10H IV Last administered on 06:04; Admin Dose 100 MLS/HR; Start 01/18/17 at 14:30 Oxycodone HCl (Oxycontin) 10 mg BID PO Last administered on 01/26/17 10:13; Admin Dose 10 MG; Start 01/18/17 at 14:23 Zinc Sulfate (Zinc Sulfate) 220 mg DAILY PO Last administered on 01/26/17 10: 13; Admin Dose 220 MG; Start 01/20/17 at 13:00 Polyethylene Glycol (Miralax) 8.5 gm DAILY PO Last administered on 01/26/17 10 :12; Admin Dose 8.5 GM; Start 01/21/17 at 09:00 Zolpidem Tartrate (Ambien) 5 mg HS PRN PO INSOMNIA Last administered on 21:43; Admin Dose 5 MG; Start 01/21/17 at 23:30 Sodium Hypochlorite (Dakin'S (1/4 Strength)) 1 applic DAILY IRR Last administered on 01/26/17 13:10; Admin Dose 1 APPLIC; Start 01/23/17 at 09:00 Collagenase (Santyl) 1 applic DAILY TOP Last administered on 01/26/17 13:10; Admin Dose 1 APPLIC; Start 01/23/17 at 09:00 Lactobacillus Acidophilus (Florajen3 Capsule) 1 each BID PO Last administered on 01/25/17 21:19; Admin Dose 1 EACH; Start 01/24/17 at 21:00 Levofloxacin (Levaquin) 250 mg DAILY@06 PO Last administered on 01/26/17 06:05 ; Admin Dose 250 MG; Start 01/25/17 at 06:00 DAVID ANGELO Jan 26, 2017 14:30
--- NOTE | 2017-01-26 14:38 | CONS ---
Date/Time of Note Date/Time of Note DATE: 01/26/17 TIME: 14:38 Assessment/Plan Assessment/Plan Chief Complaint/Hosp Course Awake, feels good no fevers, looks comfortable Microbiology: Blood cultures negative urine culture growing Enterobacter, wound culture growing E. coli Antibiotics: Levaquin Physical examination: Well-developed fragile elderly man who is awake in no distress. Head atraumatic normocephalic, sclera nonicteric. Neck is supple trachea midline. Chest rise symmetrical breath sounds clear bilaterally. No shortness of breath. Heart: S1, S2. Abdomen soft, bowel tones present. Extremities no cyanosis. Skin was unstageable sacral wound. Assessment: 1. Unstageable sacral wound, status post debridement 2. Urinary tract infection 3. Acute on chronic anemia 4. Acute renal failure possible chronic kidney disease 5. History of hepatitis C virus Plan: Remains stable, continue abx, local wound care per surgical recommendations, off load, optimize nutrition continue probiotics Discussed with RN Problems: Consultation Date/Type/Reason Admit Date/Time Jan 17, 2017 at 21:06 Initial Consult Date 01/19/17 Type of Consultation: id Exam/Review of Systems Vital Signs Vitals Vital Signs Date Time Temp Pulse Resp B/P Pulse Ox O2 Delivery O2 Flow Rate FiO2 01/26/17 13:39 98.2 88 18 131/72 99 01/23/17 14:45 Room Air Intake and Output 01/25/17 01/25/17 01/26/17 15:00 23:00 07:00 Intake Total 200 ml 1960 ml 1850 ml Output Total 1200 ml 2175 ml Balance 200 ml 760 ml -325 ml Results Result Diagram: 01/25/17 0537 01/26/17 0504 Results 24 hrs Laboratory Tests Test 01/26/17 05:04 Sodium Level 146 H Potassium Level 4.6 Chloride Level 111 H Carbon Dioxide Level 25 Anion Gap 15 Blood Urea Nitrogen 18 Creatinine 1.64 H Glucose Level 88 Calcium Level 8.2 L Medications Medications Current Medications Aripiprazole (Abilify) 5 mg DAILY PO Last administered on 01/26/17 10:13; Admin Dose 5 MG; Start 01/18/17 at 09:00 Aspirin (Halfprin) 81 mg DAILY PO Last administered on 01/26/17 10:13; Admin Dose 81 MG; Start 01/18/17 at 09:00 Buspirone HCl (Buspar) 10 mg TID PO Last administered on 01/26/17 13:08; Admin Dose 10 MG; Start 01/18/17 at 09:00 Clonazepam (Klonopin) 1 mg BID PRN PO ANXIETY Last administered on 01/26/17 10 :14; Admin Dose 1 MG; Start 01/18/17 at 00:30 Duloxetine HCl (Cymbalta) 120 mg DAILY PO Last administered on 01/26/17 10:12 ; Admin Dose 120 MG; Start 01/18/17 at 09:00 Folic Acid (Folic Acid) 1 mg DAILY PO Last administered on 01/26/17 10:13; Admin Dose 1 MG; Start 01/18/17 at 09:00 Pregabalin (Lyrica) 50 mg BID PO Last administered on 01/26/17 10:13; Admin Dose 50 MG; Start 01/18/17 at 09:00 Ropinirole HCl (Requip) 0.25 mg HS PO Last administered on 01/25/17 21:19; Admin Dose 0.25 MG; Start 01/18/17 at 21:00 Tamsulosin HCl (Flomax) 0.4 mg HS PO Last administered on 01/25/17 21:17; Admin Dose 0.4 MG; Start 01/18/17 at 21:00 Atorvastatin Calcium (Lipitor) 5 mg QHS PO Last administered on 01/25/17 21:17 ; Admin Dose 5 MG; Start 01/18/17 at 21:00 Risperidone (Risperdal) 2 mg BID PO Last administered on 01/26/17 10:13; Admin Dose 2 MG; Start 01/18/17 at 00:30 Hydromorphone HCl (Dilaudid) 0.5 mg Q4H PRN IV PAIN Last administered on 13:08; Admin Dose 0.5 MG; Start 01/18/17 at 00:30 Morphine Sulfate (morphine) 4 mg Q4H PRN IV pain Last administered on 03:12; Admin Dose 4 MG; Start 01/18/17 at 14:00 Docusate Sodium 250 mg 250 mg DAILY PO Last administered on 01/26/17 10:13; Admin Dose 250 MG; Start 01/19/17 at 09:00 Sodium Chloride (NS) 1,000 ml @ 100 mls/hr Q10H IV Last administered on 06:04; Admin Dose 100 MLS/HR; Start 01/18/17 at 14:30 Oxycodone HCl (Oxycontin) 10 mg BID PO Last administered on 01/26/17 10:13; Admin Dose 10 MG; Start 01/18/17 at 14:23 Zinc Sulfate (Zinc Sulfate) 220 mg DAILY PO Last administered on 01/26/17 10: 13; Admin Dose 220 MG; Start 01/20/17 at 13:00 Polyethylene Glycol (Miralax) 8.5 gm DAILY PO Last administered on 01/26/17 10 :12; Admin Dose 8.5 GM; Start 01/21/17 at 09:00 Zolpidem Tartrate (Ambien) 5 mg HS PRN PO INSOMNIA Last administered on 21:43; Admin Dose 5 MG; Start 01/21/17 at 23:30 Sodium Hypochlorite (Dakin'S (1/4 Strength)) 1 applic DAILY IRR Last administered on 01/26/17 13:10; Admin Dose 1 APPLIC; Start 01/23/17 at 09:00 Collagenase (Santyl) 1 applic DAILY TOP Last administered on 01/26/17 13:10; Admin Dose 1 APPLIC; Start 01/23/17 at 09:00 Lactobacillus Acidophilus (Florajen3 Capsule) 1 each BID PO Last administered on 01/25/17 21:19; Admin Dose 1 EACH; Start 01/24/17 at 21:00 Levofloxacin (Levaquin) 250 mg DAILY@06 PO Last administered on 01/26/17 06:05 ; Admin Dose 250 MG; Start 01/25/17 at 06:00 Acetaminophen/ Hydrocodone Bitart (Justice (5/325)) 1 tab Q4H PRN PO PAIN; Start 01/26/17 at 14:30 LORI ROBLERO NP Jan 26, 2017 14:38
[2017-01-26] MEDS: HYDROCODONE/APAP (5/325) TAB PO PRN (16:43)
[2017-01-26 20:06] VITALS: BP 143/78; RESP 18
[2017-01-26] MEDS: ROPINIROLE 0.25 MG TAB PO SCH (21:16)
[2017-01-26] MEDS: TAMSULOSIN (SR) 0.4 MG CAP PO SCH (21:16)
[2017-01-26] MEDS: ATORVASTATIN 10 MG TAB PO SCH (21:17)
[2017-01-26] MEDS ORDERED: LORAZEPAM 2 MG INJ IV ONE (21:30)
[2017-01-27 02:23] VITALS: BP 141/95; RESP 18
[2017-01-27] MEDS: SOD CHLORIDE 0.9% 1,000 ML IV SCH ×2 (04:16→16:08)
[2017-01-27] MEDS: LEVOFLOXACIN 250 MG TAB PO SCH ×2 (06:16→10:23)
[2017-01-27 08:09] VITALS: BP 164/85; RESP 18
[2017-01-27] MEDS: DULOXETINE 30 MG CAP DR PO SCH (10:22)
[2017-01-27] MEDS: ARIPIPRAZOLE 5 MG TAB PO SCH (10:22)
[2017-01-27] MEDS: FOLIC ACID 1 MG TAB PO SCH (10:22)
[2017-01-27] MEDS: BUSPIRONE 10 MG TAB PO SCH ×3 (10:22→21:13)
[2017-01-27] MEDS: DOCUSATE SODIUM 250 MG CAP PO SCH (10:22)
[2017-01-27] MEDS: ZINC SULFATE 220 MG CAP PO SCH (10:23)
[2017-01-27] MEDS: RISPERIDONE 2 MG TAB PO SCH ×2 (10:23→21:13)
[2017-01-27] MEDS: ASPIRIN (EC) 81 MG TAB PO SCH (10:23)
[2017-01-27] MEDS: POLYETHYLENE GLYCOL 17 GM PACKET PO SCH (10:23)
[2017-01-27] MEDS: PREGABALIN 25 MG CAP PO SCH ×2 (10:23→21:13)
[2017-01-27] MEDS: L ACIDOPHIL/B LACTIS/B LONGUM CAPSULE PO SCH ×2 (10:26→21:16)
[2017-01-27] MEDS: oxyCODONE (CR) 10 MG TAB [oxyCONTIN] PO SCH ×2 (11:44→21:13)
[2017-01-27] MEDS: clonAZEPAM 0.5 MG TAB PO PRN ×2 (12:31→21:17)
[2017-01-27] MEDS: HYDROmorphONE 1 MG/ML SYG IV PRN ×2 (13:59→18:24)
[2017-01-27 14:00] VITALS: BP 134/76; RESP 20
--- NOTE | 2017-01-27 15:19 | CONS ---
Date/Time of Note Date/Time of Note DATE: 01/27/17 TIME: 15:18 Assessment/Plan Assessment/Plan Chief Complaint/Hosp Course Awake, feels good no fevers, looks comfortable Microbiology: Blood cultures negative urine culture growing Enterobacter, wound culture growing E. coli Antibiotics: Levaquin Physical examination: Well-developed fragile elderly man who is awake in no distress. Head atraumatic normocephalic, sclera nonicteric. Neck is supple trachea midline. Chest rise symmetrical breath sounds clear bilaterally. No shortness of breath. Heart: S1, S2. Abdomen soft, bowel tones present. Extremities no cyanosis. Skin was unstageable sacral wound. Assessment: 1. Unstageable sacral wound, status post debridement 2. Urinary tract infection 3. Acute on chronic anemia 4. Acute renal failure possible chronic kidney disease 5. History of hepatitis C virus Plan: Remains stable, continue abx, local wound care per surgical recommendations, off load, optimize nutrition continue probiotics Discussed with RN Problems: Consultation Date/Type/Reason Admit Date/Time Jan 17, 2017 at 21:06 Initial Consult Date 01/19/17 Type of Consultation: id Exam/Review of Systems Vital Signs Vitals Vital Signs Date Time Temp Pulse Resp B/P Pulse Ox O2 Delivery O2 Flow Rate FiO2 01/27/17 08:09 98.7 89 18 164/85 98 01/23/17 14:45 Room Air Intake and Output 01/26/17 01/26/17 01/27/17 15:00 23:00 07:00 Intake Total 2915 ml 1445 ml Output Total 1750 ml 1200 ml Balance 1165 ml 245 ml Results Result Diagram: 01/25/17 0537 01/26/17 0504 Medications Medications Current Medications Aripiprazole (Abilify) 5 mg DAILY PO Last administered on 01/27/17 10:22; Admin Dose 5 MG; Start 01/18/17 at 09:00 Aspirin (Halfprin) 81 mg DAILY PO Last administered on 01/27/17 10:23; Admin Dose 81 MG; Start 01/18/17 at 09:00 Buspirone HCl (Buspar) 10 mg TID PO Last administered on 01/27/17 12:31; Admin Dose 10 MG; Start 01/18/17 at 09:00 Clonazepam (Klonopin) 1 mg BID PRN PO ANXIETY Last administered on 01/27/17 12 :31; Admin Dose 1 MG; Start 01/18/17 at 00:30 Duloxetine HCl (Cymbalta) 120 mg DAILY PO Last administered on 01/27/17 10:22 ; Admin Dose 120 MG; Start 01/18/17 at 09:00 Folic Acid (Folic Acid) 1 mg DAILY PO Last administered on 01/27/17 10:22; Admin Dose 1 MG; Start 01/18/17 at 09:00 Pregabalin (Lyrica) 50 mg BID PO Last administered on 01/27/17 10:23; Admin Dose 50 MG; Start 01/18/17 at 09:00 Ropinirole HCl (Requip) 0.25 mg HS PO Last administered on 01/26/17 21:16; Admin Dose 0.25 MG; Start 01/18/17 at 21:00 Tamsulosin HCl (Flomax) 0.4 mg HS PO Last administered on 01/26/17 21:16; Admin Dose 0.4 MG; Start 01/18/17 at 21:00 Atorvastatin Calcium (Lipitor) 5 mg QHS PO Last administered on 01/26/17 21:17 ; Admin Dose 5 MG; Start 01/18/17 at 21:00 Risperidone (Risperdal) 2 mg BID PO Last administered on 01/27/17 10:23; Admin Dose 2 MG; Start 01/18/17 at 00:30 Hydromorphone HCl (Dilaudid) 0.5 mg Q4H PRN IV PAIN Last administered on 13:59; Admin Dose 0.5 MG; Start 01/18/17 at 00:30 Morphine Sulfate (morphine) 4 mg Q4H PRN IV pain Last administered on 03:12; Admin Dose 4 MG; Start 01/18/17 at 14:00 Docusate Sodium 250 mg 250 mg DAILY PO Last administered on 01/27/17 10:22; Admin Dose 250 MG; Start 01/19/17 at 09:00 Sodium Chloride (NS) 1,000 ml @ 100 mls/hr Q10H IV Last administered on 04:16; Admin Dose 100 MLS/HR; Start 01/18/17 at 14:30 Oxycodone HCl (Oxycontin) 10 mg BID PO Last administered on 01/27/17 11:44; Admin Dose 10 MG; Start 01/18/17 at 14:23 Zinc Sulfate (Zinc Sulfate) 220 mg DAILY PO Last administered on 01/27/17 10: 23; Admin Dose 220 MG; Start 01/20/17 at 13:00 Polyethylene Glycol (Miralax) 8.5 gm DAILY PO Last administered on 01/27/17 10 :23; Admin Dose 8.5 GM; Start 01/21/17 at 09:00 Zolpidem Tartrate (Ambien) 5 mg HS PRN PO INSOMNIA Last administered on 21:43; Admin Dose 5 MG; Start 01/21/17 at 23:30 Sodium Hypochlorite (Dakin'S (1/4 Strength)) 1 applic DAILY IRR Last administered on 01/26/17 22:30; Admin Dose 1 APPLIC; Start 01/23/17 at 09:00 Collagenase (Santyl) 1 applic DAILY TOP Last administered on 01/26/17 22:30; Admin Dose 1 APPLIC; Start 01/23/17 at 09:00 Lactobacillus Acidophilus (Florajen3 Capsule) 1 each BID PO Last administered on 01/27/17 10:26; Admin Dose 1 EACH; Start 01/24/17 at 21:00 Levofloxacin (Levaquin) 250 mg DAILY@06 PO Last administered on 01/27/17 10:23 ; Admin Dose 250 MG; Start 01/25/17 at 06:00 Acetaminophen/ Hydrocodone Bitart ([place] (5/325)) 1 tab Q4H PRN PO PAIN Last administered on 01/26/17 16:43; Admin Dose 1 TAB; Start 01/26/17 at 14:30 LORI ROBLERO NP Jan 27, 2017 15:19
--- NOTE | 2017-01-27 15:43 | PN ---
Date/Time of Note Date/Time of Note DATE: 01/27/17 TIME: 15:42 Assessment/Plan VTE Prophylaxis VTE Prophylaxis Intervention: SCD's Lines/Catheters IV Catheter Type (from Nrsg): Peripheral IV Urinary Cath still in place: No Assessment/Plan Chief Complaint/Hosp Course #1 Cellulitis and ulceration of the buttocks region status post Debridement with surgery Continue abx / supportive care / PT / pain control, patient may need a wound VAC #2 Enterobacter Urinary tract infection Likely associated with #4 #3 Mental health/possible schizophrenia #4 Hx of BPH with USS findings of mild urinary retention and renal cysts: * retention may be associated with chronic opioid use #5 Degenerative joint disease with Chronic back pain and hx of back:, #6 Hyponatremia: 2/2 dehydration? #7 ILYA r/o CKD, ?Combination of Pre and post renal : improving slowly #8 Hepatitis C associated chronic liver disease with Pancytopenia , mild coagulopathy, and elevated transaminases. #9 Iron deficiency with Pancytopenia : 5 day IV iron therapy DVT and GI prophylaxis: SCD, Protonix Discharge planning: manager life insurance to arrange for placement, patient's assisted living may not take patient back with open wound Problems: Subjective 24 Hr Interval Summary Constitutional: no complaints Exam/Review of Systems Vital Signs Vitals Vital Signs Date Time Temp Pulse Resp B/P Pulse Ox O2 Delivery O2 Flow Rate FiO2 01/27/17 08:09 98.7 89 18 164/85 98 01/23/17 14:45 Room Air Intake and Output 01/26/17 01/26/17 01/27/17 15:00 23:00 07:00 Intake Total 2915 ml 1445 ml Output Total 1750 ml 1200 ml Balance 1165 ml 245 ml Exam Respiratory: clear to auscultation Cardiovascular: regular rate and rhythm Gastrointestinal: soft, No distended Musculoskeletal: nl extremities to inspection Results Result Diagram: 01/25/17 0537 01/26/17 0504 Medications Medications Current Medications Aripiprazole (Abilify) 5 mg DAILY PO Last administered on 01/27/17 10:22; Admin Dose 5 MG; Start 01/18/17 at 09:00 Aspirin (Halfprin) 81 mg DAILY PO Last administered on 01/27/17 10:23; Admin Dose 81 MG; Start 01/18/17 at 09:00 Buspirone HCl (Buspar) 10 mg TID PO Last administered on 01/27/17 12:31; Admin Dose 10 MG; Start 01/18/17 at 09:00 Clonazepam (Klonopin) 1 mg BID PRN PO ANXIETY Last administered on 01/27/17 12 :31; Admin Dose 1 MG; Start 01/18/17 at 00:30 Duloxetine HCl (Cymbalta) 120 mg DAILY PO Last administered on 01/27/17 10:22 ; Admin Dose 120 MG; Start 01/18/17 at 09:00 Folic Acid (Folic Acid) 1 mg DAILY PO Last administered on 01/27/17 10:22; Admin Dose 1 MG; Start 01/18/17 at 09:00 Pregabalin (Lyrica) 50 mg BID PO Last administered on 01/27/17 10:23; Admin Dose 50 MG; Start 01/18/17 at 09:00 Ropinirole HCl (Requip) 0.25 mg HS PO Last administered on 01/26/17 21:16; Admin Dose 0.25 MG; Start 01/18/17 at 21:00 Tamsulosin HCl (Flomax) 0.4 mg HS PO Last administered on 01/26/17 21:16; Admin Dose 0.4 MG; Start 01/18/17 at 21:00 Atorvastatin Calcium (Lipitor) 5 mg QHS PO Last administered on 01/26/17 21:17 ; Admin Dose 5 MG; Start 01/18/17 at 21:00 Risperidone (Risperdal) 2 mg BID PO Last administered on 01/27/17 10:23; Admin Dose 2 MG; Start 01/18/17 at 00:30 Hydromorphone HCl (Dilaudid) 0.5 mg Q4H PRN IV PAIN Last administered on 13:59; Admin Dose 0.5 MG; Start 01/18/17 at 00:30 Morphine Sulfate (morphine) 4 mg Q4H PRN IV pain Last administered on 03:12; Admin Dose 4 MG; Start 01/18/17 at 14:00 Docusate Sodium 250 mg 250 mg DAILY PO Last administered on 01/27/17 10:22; Admin Dose 250 MG; Start 01/19/17 at 09:00 Sodium Chloride (NS) 1,000 ml @ 100 mls/hr Q10H IV Last administered on 04:16; Admin Dose 100 MLS/HR; Start 01/18/17 at 14:30 Oxycodone HCl (Oxycontin) 10 mg BID PO Last administered on 01/27/17 11:44; Admin Dose 10 MG; Start 01/18/17 at 14:23 Zinc Sulfate (Zinc Sulfate) 220 mg DAILY PO Last administered on 01/27/17 10: 23; Admin Dose 220 MG; Start 01/20/17 at 13:00 Polyethylene Glycol (Miralax) 8.5 gm DAILY PO Last administered on 01/27/17 10 :23; Admin Dose 8.5 GM; Start 01/21/17 at 09:00 Zolpidem Tartrate (Ambien) 5 mg HS PRN PO INSOMNIA Last administered on 21:43; Admin Dose 5 MG; Start 01/21/17 at 23:30 Sodium Hypochlorite (Dakin'S (1/4 Strength)) 1 applic DAILY IRR Last administered on 01/26/17 22:30; Admin Dose 1 APPLIC; Start 01/23/17 at 09:00 Collagenase (Santyl) 1 applic DAILY TOP Last administered on 01/26/17 22:30; Admin Dose 1 APPLIC; Start 01/23/17 at 09:00 Lactobacillus Acidophilus (Florajen3 Capsule) 1 each BID PO Last administered on 01/27/17 10:26; Admin Dose 1 EACH; Start 01/24/17 at 21:00 Levofloxacin (Levaquin) 250 mg DAILY@06 PO Last administered on 01/27/17 10:23 ; Admin Dose 250 MG; Start 01/25/17 at 06:00 Acetaminophen/ Hydrocodone Bitart ([place] (5/325)) 1 tab Q4H PRN PO PAIN Last administered on 01/26/17 16:43; Admin Dose 1 TAB; Start 01/26/17 at 14:30 DAVID ANGELO Jan 27, 2017 15:43
[2017-01-27] MEDS: morphine 4 MG/ML VIAL IV PRN (16:02)
[2017-01-27] MEDS: SODIUM HYPOCHLORITE 0.125% 473 ML BTL IRR SCH (16:26)
[2017-01-27] MEDS: COLLAGENASE 30 GM TUBE TOP SCH (16:26)
[2017-01-27 19:36] VITALS: BP 137/73; RESP 18
[2017-01-27] MEDS: ATORVASTATIN 10 MG TAB PO SCH (21:13)
[2017-01-27] MEDS: ROPINIROLE 0.25 MG TAB PO SCH (21:13)
[2017-01-27] MEDS: TAMSULOSIN (SR) 0.4 MG CAP PO SCH (21:13)
[2017-01-27] MEDS: LORAZEPAM 1 MG TAB PO PRN (21:57)
--- NOTE | 2017-01-27 22:00 | PN ---
Date/Time of Note Date/Time of Note DATE: 01/27/17 TIME: 22:00 Assessment/Plan Lines/Catheters IV Catheter Type (from Nrs): Peripheral IV Chambers in Place (from Nrs): No Assessment/Plan Chief Complaint/Hosp Course 1. Sacral wound: s/p debridement 01/22, periwound redness improved, min drainage no odor -local care -frequent turning and repositioning -specialty bed -nutrition optimization 2. Sacral cellulitis: 2/2 above: CT: cellulitis surrounding an ulceration which extends into the subcutaneous fat abutting the dorsal surface of the coccyx without evidence of an associated subcutaneous abscess or osteomyelitis;afebrile ; periwound erythema improving; s/p debridement -as above -abx 3. Leukocytopenia: likely 2/2 above -supportive -as above 4. Normocytic anemia: no acute bleed noted:s/p PRBC transfusion 01/19; stable -monitor -transfuse as needed 5. Thrombocytopenia 2/2 #2; resolved -bleeding precautions -supportive 6. Hyponatremia: now with hypernatremia; improved -judicious fluid management 7.ILYA: bilateral hydronephrosis with bilateral renal cyst; cr improved -judicious fluid management avoid nephrotoxic meds -renal dosing for meds 8. Hypocalcemia with hypoalbuminemia: likely 2/2 malnutrition, improved -nutrition optimization -optimize lytes 9. UTI: urine cx: enterobacter cloacae; afebrile -abx per sensitivity 10. Hypomagnesemia; normalized -replete and monitor Patient seen and examined in collaboration with Dr. El Root Problems: Subjective 24 Hr Interval Summary Still awaiting placement. Feels well. Pain/discomfort in lower back intermittent. Sacral wound drainage minimal. No gore, sz, dizziness, sob, cp, palpitations, n/v/d, fevers, chills Exam/Review of Systems Vital Signs Vitals Vital Signs Date Time Temp Pulse Resp B/P Pulse Ox O2 Delivery O2 Flow Rate FiO2 01/28/17 08:04 98.5 88 18 149/52 100 Intake and Output 01/27/17 01/27/17 01/28/17 15:00 23:00 07:00 Intake Total 3000 ml 1700 ml Output Total 2550 ml 2100 ml Balance 450 ml -400 ml Exam Free Text/Dictation Constitutional: alert, oriented Psych: normal mood Head: atraumatic, normocephalic Eyes: PERRL, nl lids, nl sclera ENMT: mucosa pink and moist, nl nasal mucosa & septum Neck: non-tender, supple Respiratory: normal air movement Cardiovascular: nl pulses, regular rate and rhythm Gastrointestinal: non-tender, soft Musculoskeletal: nl extremities to inspection Extremities: normal pulses Neurological: nl speech, nl strength Skin: other (sacral wound with min slough, serosanguineous drainage, periwound erythema improved, no odor) Lymph: nl lymph nodes Results Result Diagram: 01/25/17 0537 01/26/17 0504 DORINA LITTLEJOHN NP Jan 27, 2017 22:00
[2017-01-28 02:13] VITALS: BP 160/87; RESP 16
[2017-01-28] MEDS: SOD CHLORIDE 0.9% 1,000 ML IV SCH (03:14)
[2017-01-28 08:04] VITALS: BP 149/52; RESP 18
[2017-01-28] MEDS: POLYETHYLENE GLYCOL 17 GM PACKET PO SCH (09:16)
[2017-01-28] MEDS: PREGABALIN 25 MG CAP PO SCH ×2 (09:17→20:30)
[2017-01-28] MEDS: COLLAGENASE 30 GM TUBE TOP SCH (09:17)
[2017-01-28] MEDS: SODIUM HYPOCHLORITE 0.125% 473 ML BTL IRR SCH (09:17)
[2017-01-28] MEDS: L ACIDOPHIL/B LACTIS/B LONGUM CAPSULE PO SCH ×2 (09:18→20:30)
[2017-01-28] MEDS: ZINC SULFATE 220 MG CAP PO SCH (09:18)
[2017-01-28] MEDS: DULOXETINE 30 MG CAP DR PO SCH (09:18)
[2017-01-28] MEDS: ASPIRIN (EC) 81 MG TAB PO SCH (09:18)
[2017-01-28] MEDS: DOCUSATE SODIUM 250 MG CAP PO SCH (09:18)
[2017-01-28] MEDS: BUSPIRONE 10 MG TAB PO SCH ×3 (09:19→20:30)
[2017-01-28] MEDS: ARIPIPRAZOLE 5 MG TAB PO SCH (09:19)
[2017-01-28] MEDS: RISPERIDONE 2 MG TAB PO SCH ×2 (09:19→20:30)
[2017-01-28] MEDS: FOLIC ACID 1 MG TAB PO SCH (09:19)
[2017-01-28] MEDS: oxyCODONE (CR) 10 MG TAB [oxyCONTIN] PO SCH ×2 (09:20→20:31)
[2017-01-28] MEDS: clonAZEPAM 0.5 MG TAB PO PRN ×2 (09:37→20:29)
[2017-01-28] MEDS: HYDROmorphONE 1 MG/ML SYG IV PRN ×2 (11:33→15:41)
--- NOTE | 2017-01-28 12:56 | PN ---
Date/Time of Note Date/Time of Note DATE: 01/28/17 TIME: 12:55 Assessment/Plan VTE Prophylaxis VTE Prophylaxis Intervention: SCD's Lines/Catheters IV Catheter Type (from Nrsg): Peripheral IV Urinary Cath still in place: No Assessment/Plan Chief Complaint/Hosp Course #1 Cellulitis and ulceration of the buttocks region status post Debridement with surgery Continue abx / supportive care / PT / pain control, patient may need a wound VAC #2 Enterobacter Urinary tract infection Likely associated with #4 #3 Mental health/possible schizophrenia #4 Hx of BPH with USS findings of mild urinary retention and renal cysts: * retention may be associated with chronic opioid use #5 Degenerative joint disease with Chronic back pain and hx of back:, #6 Hyponatremia: 2/2 dehydration? #7 ILYA r/o CKD, ?Combination of Pre and post renal : improving slowly #8 Hepatitis C associated chronic liver disease with Pancytopenia , mild coagulopathy, and elevated transaminases. #9 Iron deficiency with Pancytopenia : 5 day IV iron therapy DVT and GI prophylaxis: SCD, Protonix Discharge planning: it infrastructure manager to arrange for placement, patient's assisted living may not take patient back with open wound Problems: Subjective 24 Hr Interval Summary Constitutional: no complaints Exam/Review of Systems Vital Signs Vitals Vital Signs Date Time Temp Pulse Resp B/P Pulse Ox O2 Delivery O2 Flow Rate FiO2 01/28/17 08:04 98.5 88 18 149/52 100 Intake and Output 01/27/17 01/27/17 01/28/17 15:00 23:00 07:00 Intake Total 3000 ml 1700 ml Output Total 2550 ml 2100 ml Balance 450 ml -400 ml Exam Constitutional: alert Respiratory: clear to auscultation Cardiovascular: regular rate and rhythm Gastrointestinal: soft, No distended Musculoskeletal: nl extremities to inspection Results Result Diagram: 01/25/17 0537 01/26/17 0504 Medications Medications Current Medications Aripiprazole (Abilify) 5 mg DAILY PO Last administered on 01/28/17 09:19; Admin Dose 5 MG; Start 01/18/17 at 09:00 Aspirin (Halfprin) 81 mg DAILY PO Last administered on 01/28/17 09:18; Admin Dose 81 MG; Start 01/18/17 at 09:00 Buspirone HCl (Buspar) 10 mg TID PO Last administered on 01/28/17 09:19; Admin Dose 10 MG; Start 01/18/17 at 09:00 Clonazepam (Klonopin) 1 mg BID PRN PO ANXIETY Last administered on 01/28/17 09 :37; Admin Dose 1 MG; Start 01/18/17 at 00:30 Duloxetine HCl (Cymbalta) 120 mg DAILY PO Last administered on 01/28/17 09:18 ; Admin Dose 120 MG; Start 01/18/17 at 09:00 Folic Acid (Folic Acid) 1 mg DAILY PO Last administered on 01/28/17 09:19; Admin Dose 1 MG; Start 01/18/17 at 09:00 Pregabalin (Lyrica) 50 mg BID PO Last administered on 01/28/17 09:17; Admin Dose 50 MG; Start 01/18/17 at 09:00 Ropinirole HCl (Requip) 0.25 mg HS PO Last administered on 01/27/17 21:13; Admin Dose 0.25 MG; Start 01/18/17 at 21:00 Tamsulosin HCl (Flomax) 0.4 mg HS PO Last administered on 01/27/17 21:13; Admin Dose 0.4 MG; Start 01/18/17 at 21:00 Atorvastatin Calcium (Lipitor) 5 mg QHS PO Last administered on 01/27/17 21:13 ; Admin Dose 5 MG; Start 01/18/17 at 21:00 Risperidone (Risperdal) 2 mg BID PO Last administered on 01/28/17 09:19; Admin Dose 2 MG; Start 01/18/17 at 00:30 Hydromorphone HCl (Dilaudid) 0.5 mg Q4H PRN IV PAIN Last administered on 11:33; Admin Dose 0.5 MG; Start 01/18/17 at 00:30 Morphine Sulfate (morphine) 4 mg Q4H PRN IV pain Last administered on 16:02; Admin Dose 4 MG; Start 01/18/17 at 14:00 Docusate Sodium 250 mg 250 mg DAILY PO Last administered on 01/28/17 09:18; Admin Dose 250 MG; Start 01/19/17 at 09:00 Sodium Chloride (NS) 1,000 ml @ 100 mls/hr Q10H IV Last administered on 03:14; Admin Dose 100 MLS/HR; Start 01/18/17 at 14:30 Oxycodone HCl (Oxycontin) 10 mg BID PO Last administered on 01/28/17 09:20; Admin Dose 10 MG; Start 01/18/17 at 14:23 Zinc Sulfate (Zinc Sulfate) 220 mg DAILY PO Last administered on 01/28/17 09: 18; Admin Dose 220 MG; Start 01/20/17 at 13:00 Polyethylene Glycol (Miralax) 8.5 gm DAILY PO Last administered on 01/28/17 09 :16; Admin Dose 8.5 GM; Start 01/21/17 at 09:00 Zolpidem Tartrate (Ambien) 5 mg HS PRN PO INSOMNIA Last administered on 21:43; Admin Dose 5 MG; Start 01/21/17 at 23:30 Sodium Hypochlorite (Dakin'S (1/4 Strength)) 1 applic DAILY IRR Last administered on 01/28/17 09:17; Admin Dose 1 APPLIC; Start 01/23/17 at 09:00 Collagenase (Santyl) 1 applic DAILY TOP Last administered on 01/28/17 09:17; Admin Dose 1 APPLIC; Start 01/23/17 at 09:00 Lactobacillus Acidophilus (Florajen3 Capsule) 1 each BID PO Last administered on 01/28/17 09:18; Admin Dose 1 EACH; Start 01/24/17 at 21:00 Levofloxacin (Levaquin) 250 mg DAILY@06 PO Last administered on 01/27/17 10:23 ; Admin Dose 250 MG; Start 01/25/17 at 06:00 Acetaminophen/ Hydrocodone Bitart ([place] (5/325)) 1 tab Q4H PRN PO PAIN Last administered on 01/26/17 16:43; Admin Dose 1 TAB; Start 01/26/17 at 14:30 Lorazepam (Ativan) 1 mg QHS PRN PO INSOMNIA Last administered on 01/27/17 21: 57; Admin Dose 1 MG; Start 01/27/17 at 21:30 DAVID ANGELO Jan 28, 2017 12:56
[2017-01-28] MEDS: SOD CHLORIDE 0.45% 1,000 ML IV SCH ×2 (13:30→23:00)
--- NOTE | 2017-01-28 14:06 | CONS ---
Date/Time of Note Date/Time of Note DATE: 01/28/17 TIME: 14:06 Assessment/Plan Assessment/Plan Chief Complaint/Hosp Course Awake, feels good no fevers, looks comfortable Microbiology: Blood cultures negative urine culture growing Enterobacter, wound culture growing E. coli Antibiotics: Levaquin Physical examination: Well-developed fragile elderly man who is awake in no distress. Head atraumatic normocephalic, sclera nonicteric. Neck is supple trachea midline. Chest rise symmetrical breath sounds clear bilaterally. No shortness of breath. Heart: S1, S2. Abdomen soft, bowel tones present. Extremities no cyanosis. Skin was unstageable sacral wound. Assessment: 1. Unstageable sacral wound, status post debridement 2. Urinary tract infection 3. Acute on chronic anemia 4. Acute renal failure possible chronic kidney disease 5. History of hepatitis C virus Plan: Remains stable, continue local wound care per surgical recommendations, off load, optimize nutrition continue probiotics, complete abx for 2 weeks total Discussed with RN Problems: Consultation Date/Type/Reason Admit Date/Time Jan 17, 2017 at 21:06 Initial Consult Date 01/19/17 Type of Consultation: id Exam/Review of Systems Vital Signs Vitals Vital Signs Date Time Temp Pulse Resp B/P Pulse Ox O2 Delivery O2 Flow Rate FiO2 01/28/17 08:04 98.5 88 18 149/52 100 Intake and Output 01/27/17 01/27/17 01/28/17 15:00 23:00 07:00 Intake Total 3000 ml 1700 ml Output Total 2550 ml 2100 ml Balance 450 ml -400 ml Results Result Diagram: 01/25/17 0537 01/26/17 0504 Medications Medications Current Medications Aripiprazole (Abilify) 5 mg DAILY PO Last administered on 01/28/17 09:19; Admin Dose 5 MG; Start 01/18/17 at 09:00 Aspirin (Halfprin) 81 mg DAILY PO Last administered on 01/28/17 09:18; Admin Dose 81 MG; Start 01/18/17 at 09:00 Buspirone HCl (Buspar) 10 mg TID PO Last administered on 01/28/17 13:30; Admin Dose 10 MG; Start 01/18/17 at 09:00 Clonazepam (Klonopin) 1 mg BID PRN PO ANXIETY Last administered on 01/28/17 09 :37; Admin Dose 1 MG; Start 01/18/17 at 00:30 Duloxetine HCl (Cymbalta) 120 mg DAILY PO Last administered on 01/28/17 09:18 ; Admin Dose 120 MG; Start 01/18/17 at 09:00 Folic Acid (Folic Acid) 1 mg DAILY PO Last administered on 01/28/17 09:19; Admin Dose 1 MG; Start 01/18/17 at 09:00 Pregabalin (Lyrica) 50 mg BID PO Last administered on 01/28/17 09:17; Admin Dose 50 MG; Start 01/18/17 at 09:00 Ropinirole HCl (Requip) 0.25 mg HS PO Last administered on 01/27/17 21:13; Admin Dose 0.25 MG; Start 01/18/17 at 21:00 Tamsulosin HCl (Flomax) 0.4 mg HS PO Last administered on 01/27/17 21:13; Admin Dose 0.4 MG; Start 01/18/17 at 21:00 Atorvastatin Calcium (Lipitor) 5 mg QHS PO Last administered on 01/27/17 21:13 ; Admin Dose 5 MG; Start 01/18/17 at 21:00 Risperidone (Risperdal) 2 mg BID PO Last administered on 01/28/17 09:19; Admin Dose 2 MG; Start 01/18/17 at 00:30 Hydromorphone HCl (Dilaudid) 0.5 mg Q4H PRN IV PAIN Last administered on 11:33; Admin Dose 0.5 MG; Start 01/18/17 at 00:30 Morphine Sulfate (morphine) 4 mg Q4H PRN IV pain Last administered on 16:02; Admin Dose 4 MG; Start 01/18/17 at 14:00 Docusate Sodium (Colace) 250 mg DAILY PO Last administered on 01/28/17 09:18; Admin Dose 250 MG; Start 01/19/17 at 09:00 Oxycodone HCl (Oxycontin) 10 mg BID PO Last administered on 01/28/17 09:20; Admin Dose 10 MG; Start 01/18/17 at 14:23 Zinc Sulfate (Zinc Sulfate) 220 mg DAILY PO Last administered on 01/28/17 09: 18; Admin Dose 220 MG; Start 01/20/17 at 13:00 Polyethylene Glycol (Miralax) 8.5 gm DAILY PO Last administered on 01/28/17 09 :16; Admin Dose 8.5 GM; Start 01/21/17 at 09:00 Zolpidem Tartrate (Ambien) 5 mg HS PRN PO INSOMNIA Last administered on 21:43; Admin Dose 5 MG; Start 01/21/17 at 23:30 Sodium Hypochlorite (Dakin'S (1/4 Strength)) 1 applic DAILY IRR Last administered on 01/28/17 09:17; Admin Dose 1 APPLIC; Start 01/23/17 at 09:00 Collagenase (Santyl) 1 applic DAILY TOP Last administered on 01/28/17 09:17; Admin Dose 1 APPLIC; Start 01/23/17 at 09:00 Lactobacillus Acidophilus (Florajen3 Capsule) 1 each BID PO Last administered on 01/28/17 09:18; Admin Dose 1 EACH; Start 01/24/17 at 21:00 Levofloxacin (Levaquin) 250 mg DAILY@06 PO Last administered on 01/27/17 10:23 ; Admin Dose 250 MG; Start 01/25/17 at 06:00 Acetaminophen/ Hydrocodone Bitart ([place] (5/325)) 1 tab Q4H PRN PO PAIN Last administered on 01/26/17 16:43; Admin Dose 1 TAB; Start 01/26/17 at 14:30 Lorazepam 1 mg 1 mg QHS PRN PO INSOMNIA Last administered on 01/27/17 21:57; Admin Dose 1 MG; Start 01/27/17 at 21:30 Sodium Chloride (1/2 NS) 1,000 ml @ 100 mls/hr Q10H IV Last administered on 13:30; Admin Dose 100 MLS/HR; Start 01/28/17 at 13:00 LORI ROBLERO NP Jan 28, 2017 14:06
[2017-01-28 14:38] VITALS: BP 132/71; RESP 18
[2017-01-28] MEDS: morphine 4 MG/ML VIAL IV PRN (17:29)
[2017-01-28 19:28] VITALS: BP 125/63; RESP 18
[2017-01-28] MEDS: ROPINIROLE 0.25 MG TAB PO SCH (20:30)
[2017-01-28] MEDS: TAMSULOSIN (SR) 0.4 MG CAP PO SCH (20:30)
[2017-01-28] MEDS: ATORVASTATIN 10 MG TAB PO SCH (20:30)
--- NOTE | 2017-01-28 20:34 | PN ---
Date/Time of Note Date/Time of Note DATE: 01/28/17 TIME: 20:33 Assessment/Plan Lines/Catheters IV Catheter Type (from [facility] Peripheral IV Chambers in Place (from [facility]): No Assessment/Plan Chief Complaint/Hosp Course 1. Sacral wound: s/p debridement 01/22, periwound redness improved, min drainage no odor -local care -frequent turning and repositioning -specialty bed -nutrition optimization 2. Sacral cellulitis: 2/2 above: CT: cellulitis surrounding an ulceration which extends into the subcutaneous fat abutting the dorsal surface of the coccyx without evidence of an associated subcutaneous abscess or osteomyelitis;afebrile ; periwound erythema improving; s/p debridement -as above -abx 3. Leukocytopenia: likely 2/2 above -supportive -as above 4. Normocytic anemia: no acute bleed noted:s/p PRBC transfusion 01/19; stable -monitor -transfuse as needed 5. Thrombocytopenia 2/2 #2; resolved -bleeding precautions -supportive 6. Hyponatremia: now with hypernatremia; improved -judicious fluid management 7.ILYA: bilateral hydronephrosis with bilateral renal cyst; cr improved -judicious fluid management avoid nephrotoxic meds -renal dosing for meds 8. Hypocalcemia with hypoalbuminemia: likely 2/2 malnutrition, improved -nutrition optimization -optimize lytes 9. UTI: urine cx: enterobacter cloacae; afebrile -abx per sensitivity 10. Hypomagnesemia; normalized -replete and monitor Thank you, Problems: Subjective 24 Hr Interval Summary Awaiting placement. Feels well. Pain/discomfort in lower back intermittent. Sacral wound drainage minimal. No gore, sz, dizziness, sob, cp, palpitations, n/v/ d, fevers, chills Exam/Review of Systems Vital Signs Vitals Vital Signs Date Time Temp Pulse Resp B/P Pulse Ox O2 Delivery O2 Flow Rate FiO2 01/28/17 19:28 98.2 80 18 125/63 98 Intake and Output 01/27/17 01/27/17 01/28/17 15:00 23:00 07:00 Intake Total 3000 ml 1700 ml Output Total 2550 ml 2100 ml Balance 450 ml -400 ml Exam Free Text/Dictation Constitutional: alert, oriented Psych: normal mood Head: atraumatic, normocephalic Eyes: PERRL, nl lids, nl sclera ENMT: mucosa pink and moist, nl nasal mucosa & septum Neck: non-tender, supple Respiratory: normal air movement Cardiovascular: nl pulses, regular rate and rhythm Gastrointestinal: non-tender, soft Musculoskeletal: nl extremities to inspection Extremities: normal pulses Neurological: nl speech, nl strength Skin: other (sacral wound with min slough, serosanguineous drainage, periwound erythema improved, no odor) Lymph: nl lymph nodes Results Result Diagram: 01/25/17 0537 01/26/17 0504 SAVANNAH ELIZABETH MD Jan 28, 2017 20:34
[2017-01-28] MEDS: LORAZEPAM 1 MG TAB PO PRN (21:15)
[2017-01-29] MEDS: SOD CHLORIDE 0.45% 1,000 ML IV SCH ×3 (00:24→10:31)
[2017-01-29 01:38] VITALS: BP 135/86; RESP 18
[2017-01-29] MEDS: LEVOFLOXACIN 250 MG TAB PO SCH (06:13)
[2017-01-29 07:00] LABS: CALCIUM 8.3 mg/dl (8.4-10.2); CREATININE 1.54 mg/dl (0.61-1.24); MAGNESIUM 1.6 mg/dl (1.7-2.5); PHOSPHORUS 4.4 mg/dl (2.5-4.9); POTASSIUM 4.5 mmol/L (3.5-5.1)
[2017-01-29 07:26] VITALS: BP 132/70; RESP 16
[2017-01-29] MEDS: DULOXETINE 30 MG CAP DR PO SCH (08:58)
[2017-01-29] MEDS: ZINC SULFATE 220 MG CAP PO SCH (08:59)
[2017-01-29] MEDS: FOLIC ACID 1 MG TAB PO SCH (08:59)
[2017-01-29] MEDS: PREGABALIN 25 MG CAP PO SCH ×2 (08:59→20:40)
[2017-01-29] MEDS: RISPERIDONE 2 MG TAB PO SCH ×2 (09:00→20:40)
[2017-01-29] MEDS: BUSPIRONE 10 MG TAB PO SCH ×3 (09:00→20:40)
[2017-01-29] MEDS: DOCUSATE SODIUM 250 MG CAP PO SCH (09:00)
[2017-01-29] MEDS: ARIPIPRAZOLE 5 MG TAB PO SCH (09:00)
[2017-01-29] MEDS: POLYETHYLENE GLYCOL 17 GM PACKET PO SCH (09:01)
[2017-01-29] MEDS: ASPIRIN (EC) 81 MG TAB PO SCH (09:01)
[2017-01-29] MEDS: oxyCODONE (CR) 10 MG TAB [oxyCONTIN] PO SCH ×2 (09:01→20:41)
[2017-01-29] MEDS: SODIUM HYPOCHLORITE 0.125% 473 ML BTL IRR SCH (09:02)
[2017-01-29] MEDS: COLLAGENASE 30 GM TUBE TOP SCH (09:02)
[2017-01-29] MEDS: clonAZEPAM 0.5 MG TAB PO PRN ×2 (09:08→20:40)
[2017-01-29] MEDS: L ACIDOPHIL/B LACTIS/B LONGUM CAPSULE PO SCH ×2 (09:08→20:40)
[2017-01-29] MEDS: HYDROmorphONE 1 MG/ML SYG IV PRN ×2 (11:17→15:34)
[2017-01-29] MEDS: HYDROCODONE/APAP (5/325) TAB PO PRN ×2 (12:52→17:52)
[2017-01-29 13:26] VITALS: BP 121/59; RESP 18
--- NOTE | 2017-01-29 15:07 | CONS ---
Date/Time of Note Date/Time of Note DATE: 01/29/17 TIME: 15:06 Assessment/Plan Assessment/Plan Chief Complaint/Hosp Course Awake, feels good no fevers, looks comfortable Microbiology: Blood cultures negative urine culture growing Enterobacter, wound culture growing E. coli Antibiotics: Levaquin Physical examination: Well-developed fragile elderly man who is awake in no distress. Head atraumatic normocephalic, sclera nonicteric. Neck is supple trachea midline. Chest rise symmetrical breath sounds clear bilaterally. No shortness of breath. Heart: S1, S2. Abdomen soft, bowel tones present. Extremities no cyanosis. Skin was unstageable sacral wound. Assessment: 1. Unstageable sacral wound, status post debridement 2. Urinary tract infection 3. Acute on chronic anemia 4. Acute renal failure possible chronic kidney disease 5. History of hepatitis C virus Plan: Remains stable, continue local wound care per surgical recommendations, continue off load, DC antibiotics in a.m. Discussed with RN Problems: Consultation Date/Type/Reason Admit Date/Time Jan 17, 2017 at 21:06 Initial Consult Date 01/19/17 Type of Consultation: id Exam/Review of Systems Vital Signs Vitals Vital Signs Date Time Temp Pulse Resp B/P Pulse Ox O2 Delivery O2 Flow Rate FiO2 01/29/17 13:26 97.8 84 18 121/59 98 Intake and Output 01/28/17 01/28/17 01/29/17 15:00 23:00 07:00 Intake Total 500 ml 1160 ml 1920 ml Output Total 2050 ml 2450 ml Balance 500 ml -890 ml -530 ml Results Result Diagram: 01/25/17 0537 01/29/17 0525 Results 24 hrs Laboratory Tests Test 01/29/17 05:25 Sodium Level 146 H Potassium Level 4.5 Chloride Level 108 Carbon Dioxide Level 25 Anion Gap 18 H Blood Urea Nitrogen 19 Creatinine 1.54 H Glucose Level 84 Calcium Level 8.3 L Phosphorus Level 4.4 Magnesium Level 1.6 L Medications Medications Current Medications Aripiprazole (Abilify) 5 mg DAILY PO Last administered on 01/29/17 09:00; Admin Dose 5 MG; Start 01/18/17 at 09:00 Aspirin (Halfprin) 81 mg DAILY PO Last administered on 01/29/17 09:01; Admin Dose 81 MG; Start 01/18/17 at 09:00 Buspirone HCl (Buspar) 10 mg TID PO Last administered on 01/29/17 13:54; Admin Dose 10 MG; Start 01/18/17 at 09:00 Clonazepam (Klonopin) 1 mg BID PRN PO ANXIETY Last administered on 01/29/17 09 :08; Admin Dose 1 MG; Start 01/18/17 at 00:30 Duloxetine HCl (Cymbalta) 120 mg DAILY PO Last administered on 01/29/17 08:58 ; Admin Dose 120 MG; Start 01/18/17 at 09:00 Folic Acid (Folic Acid) 1 mg DAILY PO Last administered on 01/29/17 08:59; Admin Dose 1 MG; Start 01/18/17 at 09:00 Pregabalin (Lyrica) 50 mg BID PO Last administered on 01/29/17 08:59; Admin Dose 50 MG; Start 01/18/17 at 09:00 Ropinirole HCl (Requip) 0.25 mg HS PO Last administered on 01/28/17 20:30; Admin Dose 0.25 MG; Start 01/18/17 at 21:00 Tamsulosin HCl (Flomax) 0.4 mg HS PO Last administered on 01/28/17 20:30; Admin Dose 0.4 MG; Start 01/18/17 at 21:00 Atorvastatin Calcium (Lipitor) 5 mg QHS PO Last administered on 01/28/17 20:30 ; Admin Dose 5 MG; Start 01/18/17 at 21:00 Risperidone (Risperdal) 2 mg BID PO Last administered on 01/29/17 09:00; Admin Dose 2 MG; Start 01/18/17 at 00:30 Hydromorphone HCl (Dilaudid) 0.5 mg Q4H PRN IV PAIN Last administered on 11:17; Admin Dose 0.5 MG; Start 01/18/17 at 00:30 Morphine Sulfate (morphine) 4 mg Q4H PRN IV pain Last administered on 17:29; Admin Dose 4 MG; Start 01/18/17 at 14:00 Docusate Sodium (Colace) 250 mg DAILY PO Last administered on 01/29/17 09:00; Admin Dose 250 MG; Start 01/19/17 at 09:00 Oxycodone HCl (Oxycontin) 10 mg BID PO Last administered on 01/29/17 09:01; Admin Dose 10 MG; Start 01/18/17 at 14:23 Zinc Sulfate (Zinc Sulfate) 220 mg DAILY PO Last administered on 01/29/17 08: 59; Admin Dose 220 MG; Start 01/20/17 at 13:00 Polyethylene Glycol (Miralax) 8.5 gm DAILY PO Last administered on 01/29/17 09 :01; Admin Dose 8.5 GM; Start 01/21/17 at 09:00 Zolpidem Tartrate (Ambien) 5 mg HS PRN PO INSOMNIA Last administered on 21:43; Admin Dose 5 MG; Start 01/21/17 at 23:30 Sodium Hypochlorite (Dakin'S (1/4 Strength)) 1 applic DAILY IRR Last administered on 01/29/17 09:02; Admin Dose 1 APPLIC; Start 01/23/17 at 09:00 Collagenase (Santyl) 1 applic DAILY TOP Last administered on 01/29/17 09:02; Admin Dose 1 APPLIC; Start 01/23/17 at 09:00 Lactobacillus Acidophilus (Florajen3 Capsule) 1 each BID PO Last administered on 01/29/17 09:08; Admin Dose 1 EACH; Start 01/24/17 at 21:00 Levofloxacin (Levaquin) 250 mg DAILY@06 PO Last administered on 01/29/17 06:13 ; Admin Dose 250 MG; Start 01/25/17 at 06:00 Acetaminophen/ Hydrocodone Bitart ([place] (5/325)) 1 tab Q4H PRN PO PAIN Last administered on 01/29/17 12:52; Admin Dose 1 TAB; Start 01/26/17 at 14:30 Lorazepam 1 mg 1 mg QHS PRN PO INSOMNIA Last administered on 01/28/17 21:15; Admin Dose 1 MG; Start 01/27/17 at 21:30 Sodium Chloride (1/2 NS) 1,000 ml @ 100 mls/hr Q10H IV Last administered on 10:31; Admin Dose 100 MLS/HR; Start 01/28/17 at 13:00 LORI ROBLERO NP Jan 29, 2017 15:07
[2017-01-29] MEDS ORDERED: MAGNESIUM SULFATE 2 GM/50 ML 50 ML IVPB ONE (17:30)
--- NOTE | 2017-01-29 17:54 | PN ---
Date/Time of Note Date/Time of Note DATE: 01/29/17 TIME: 17:53 Assessment/Plan VTE Prophylaxis VTE Prophylaxis Intervention: SCD's Lines/Catheters IV Catheter Type (from Nrsg): Peripheral IV Urinary Cath still in place: No Assessment/Plan Chief Complaint/Hosp Course #1 Cellulitis and ulceration of the buttocks region status post Debridement with surgery Continue abx / supportive care / PT / pain control, patient may need a wound VAC #2 Enterobacter Urinary tract infection Likely associated with #4 #3 Mental health/possible schizophrenia #4 Hx of BPH with USS findings of mild urinary retention and renal cysts: * retention may be associated with chronic opioid use #5 Degenerative joint disease with Chronic back pain and hx of back:, #6 Hyponatremia: 2/2 dehydration? #7 ILYA r/o CKD, ?Combination of Pre and post renal : improving slowly #8 Hepatitis C associated chronic liver disease with Pancytopenia , mild coagulopathy, and elevated transaminases. #9 Iron deficiency with Pancytopenia : 5 day IV iron therapy DVT and GI prophylaxis: SCD, Protonix Discharge planning: information systems project manager to arrange for placement, patient's assisted living may not take patient back with open wound, of note patient states that he is a [facility] patient and is open to going to a [facility] care home Problems: Subjective 24 Hr Interval Summary Constitutional: no complaints Exam/Review of Systems Vital Signs Vitals Vital Signs Date Time Temp Pulse Resp B/P Pulse Ox O2 Delivery O2 Flow Rate FiO2 01/29/17 13:26 97.8 84 18 121/59 98 Intake and Output 01/28/17 01/28/17 01/29/17 15:00 23:00 07:00 Intake Total 500 ml 1160 ml 1920 ml Output Total 2050 ml 2450 ml Balance 500 ml -890 ml -530 ml Exam Constitutional: alert, oriented Respiratory: clear to auscultation Cardiovascular: regular rate and rhythm Gastrointestinal: soft, No distended Musculoskeletal: nl extremities to inspection Results Result Diagram: 01/25/17 0537 01/29/17 0525 Results 24 hrs Laboratory Tests Test 01/29/17 05:25 Sodium Level 146 H Potassium Level 4.5 Chloride Level 108 Carbon Dioxide Level 25 Anion Gap 18 H Blood Urea Nitrogen 19 Creatinine 1.54 H Glucose Level 84 Calcium Level 8.3 L Phosphorus Level 4.4 Magnesium Level 1.6 L Medications Medications Current Medications Aripiprazole (Abilify) 5 mg DAILY PO Last administered on 01/29/17 09:00; Admin Dose 5 MG; Start 01/18/17 at 09:00 Aspirin (Halfprin) 81 mg DAILY PO Last administered on 01/29/17 09:01; Admin Dose 81 MG; Start 01/18/17 at 09:00 Buspirone HCl (Buspar) 10 mg TID PO Last administered on 01/29/17 13:54; Admin Dose 10 MG; Start 01/18/17 at 09:00 Clonazepam (Klonopin) 1 mg BID PRN PO ANXIETY Last administered on 01/29/17 09 :08; Admin Dose 1 MG; Start 01/18/17 at 00:30 Duloxetine HCl (Cymbalta) 120 mg DAILY PO Last administered on 01/29/17 08:58 ; Admin Dose 120 MG; Start 01/18/17 at 09:00 Folic Acid (Folic Acid) 1 mg DAILY PO Last administered on 01/29/17 08:59; Admin Dose 1 MG; Start 01/18/17 at 09:00 Pregabalin (Lyrica) 50 mg BID PO Last administered on 01/29/17 08:59; Admin Dose 50 MG; Start 01/18/17 at 09:00 Ropinirole HCl (Requip) 0.25 mg HS PO Last administered on 01/28/17 20:30; Admin Dose 0.25 MG; Start 01/18/17 at 21:00 Tamsulosin HCl (Flomax) 0.4 mg HS PO Last administered on 01/28/17 20:30; Admin Dose 0.4 MG; Start 01/18/17 at 21:00 Atorvastatin Calcium (Lipitor) 5 mg QHS PO Last administered on 01/28/17 20:30 ; Admin Dose 5 MG; Start 01/18/17 at 21:00 Risperidone (Risperdal) 2 mg BID PO Last administered on 01/29/17 09:00; Admin Dose 2 MG; Start 01/18/17 at 00:30 Hydromorphone HCl (Dilaudid) 0.5 mg Q4H PRN IV PAIN Last administered on 15:34; Admin Dose 0.5 MG; Start 01/18/17 at 00:30 Morphine Sulfate (morphine) 4 mg Q4H PRN IV pain Last administered on 17:29; Admin Dose 4 MG; Start 01/18/17 at 14:00 Docusate Sodium (Colace) 250 mg DAILY PO Last administered on 01/29/17 09:00; Admin Dose 250 MG; Start 01/19/17 at 09:00 Oxycodone HCl (Oxycontin) 10 mg BID PO Last administered on 01/29/17 09:01; Admin Dose 10 MG; Start 01/18/17 at 14:23 Zinc Sulfate (Zinc Sulfate) 220 mg DAILY PO Last administered on 01/29/17 08: 59; Admin Dose 220 MG; Start 01/20/17 at 13:00 Polyethylene Glycol (Miralax) 8.5 gm DAILY PO Last administered on 01/29/17 09 :01; Admin Dose 8.5 GM; Start 01/21/17 at 09:00 Zolpidem Tartrate (Ambien) 5 mg HS PRN PO INSOMNIA Last administered on 21:43; Admin Dose 5 MG; Start 01/21/17 at 23:30 Sodium Hypochlorite (Dakin'S (1/4 Strength)) 1 applic DAILY IRR Last administered on 01/29/17 09:02; Admin Dose 1 APPLIC; Start 01/23/17 at 09:00 Collagenase (Santyl) 1 applic DAILY TOP Last administered on 01/29/17 09:02; Admin Dose 1 APPLIC; Start 01/23/17 at 09:00 Lactobacillus Acidophilus (Florajen3 Capsule) 1 each BID PO Last administered on 01/29/17 09:08; Admin Dose 1 EACH; Start 01/24/17 at 21:00 Levofloxacin (Levaquin) 250 mg DAILY@06 PO Last administered on 01/29/17 06:13 ; Admin Dose 250 MG; Start 01/25/17 at 06:00; Stop 01/30/17 at 06:00 Acetaminophen/ Hydrocodone Bitart ([place] (5/325)) 1 tab Q4H PRN PO PAIN Last administered on 01/29/17 17:52; Admin Dose 1 TAB; Start 01/26/17 at 14:30 Lorazepam 1 mg 1 mg QHS PRN PO INSOMNIA Last administered on 01/28/17 21:15; Admin Dose 1 MG; Start 01/27/17 at 21:30 Sodium Chloride 1,000 ml @ 100 mls/hr Q10H IV Last administered on 01/29/17 10:31; Admin Dose 100 MLS/HR; Start 01/28/17 at 13:00 Magnesium Sulfate (Magnesium Sulfate 2 Gm/50 ml) 50 ml @ 25 mls/hr ONCE ONCE IVPB Last administered on 01/29/17 17:45; Admin Dose 25 MLS/HR; Start at 17:30; Stop 01/29/17 at 19:29 DAVID ANGELO Jan 29, 2017 17:54
[2017-01-29] MEDS: DEXTROSE 5% 1,000 ML IV SCH (19:03)
[2017-01-29 20:00] VITALS: BP 156/77; RESP 20
[2017-01-29] MEDS: TAMSULOSIN (SR) 0.4 MG CAP PO SCH (20:40)
[2017-01-29] MEDS: ATORVASTATIN 10 MG TAB PO SCH (20:40)
[2017-01-29] MEDS: ROPINIROLE 0.25 MG TAB PO SCH (20:40)
[2017-01-29] MEDS: LORAZEPAM 1 MG TAB PO PRN (21:37)
[2017-01-30 02:00] VITALS: BP 142/78; RESP 20
[2017-01-30] MEDS: DEXTROSE 5% 1,000 ML IV SCH ×2 (04:00→08:18)
[2017-01-30] MEDS: LEVOFLOXACIN 250 MG TAB PO SCH (05:47)
[2017-01-30 06:34] LABS: CALCIUM 8.3 mg/dl (8.4-10.2); CREATININE 1.7 mg/dl (0.61-1.24); MAGNESIUM 1.9 mg/dl (1.7-2.5); POTASSIUM 4.4 mmol/L (3.5-5.1)
[2017-01-30 07:42] VITALS: BP 166/82; RESP 18
[2017-01-30] MEDS: L ACIDOPHIL/B LACTIS/B LONGUM CAPSULE PO SCH ×2 (08:19→21:00)
[2017-01-30] MEDS: FOLIC ACID 1 MG TAB PO SCH (08:19)
[2017-01-30] MEDS: ARIPIPRAZOLE 5 MG TAB PO SCH (08:19)
[2017-01-30] MEDS: ASPIRIN (EC) 81 MG TAB PO SCH (08:20)
[2017-01-30] MEDS: BUSPIRONE 10 MG TAB PO SCH ×3 (08:20→21:00)
[2017-01-30] MEDS: DOCUSATE SODIUM 250 MG CAP PO SCH (08:20)
[2017-01-30] MEDS: DULOXETINE 30 MG CAP DR PO SCH (08:20)
[2017-01-30] MEDS: RISPERIDONE 2 MG TAB PO SCH ×2 (08:20→21:00)
[2017-01-30] MEDS: ZINC SULFATE 220 MG CAP PO SCH (08:20)
[2017-01-30] MEDS: PREGABALIN 25 MG CAP PO SCH ×2 (08:21→21:00)
[2017-01-30] MEDS: oxyCODONE (CR) 10 MG TAB [oxyCONTIN] PO SCH ×2 (08:21→21:00)
[2017-01-30] MEDS: POLYETHYLENE GLYCOL 17 GM PACKET PO SCH (08:22)
[2017-01-30] MEDS: clonAZEPAM 0.5 MG TAB PO PRN (08:22)
[2017-01-30] MEDS: SODIUM HYPOCHLORITE 0.125% 473 ML BTL IRR SCH (08:25)
[2017-01-30] MEDS: COLLAGENASE 30 GM TUBE TOP SCH (08:25)
[2017-01-30] MEDS: HYDROmorphONE 1 MG/ML SYG IV PRN ×4 (09:41→20:05)
[2017-01-30] MEDS: HYDROCODONE/APAP (5/325) TAB PO PRN (11:43)
--- NOTE | 2017-01-30 11:46 | PN ---
Date/Time of Note Date/Time of Note DATE: 01/30/17 TIME: 11:41 Assessment/Plan Lines/Catheters IV Catheter Type (from [facility]): Peripheral IV Chambers in Place (from Nrs): No Assessment/Plan Chief Complaint/Hosp Course 1. Sacral wound: s/p debridement 01/22, periwound redness improved, min drainage no odor; -local care -frequent turning and repositioning -specialty bed -nutrition optimization -debridement prn 2. Sacral cellulitis: 2/2 above: CT: cellulitis surrounding an ulceration which extends into the subcutaneous fat abutting the dorsal surface of the coccyx without evidence of an associated subcutaneous abscess or osteomyelitis;afebrile ; periwound erythema improving; wound cx: ecoli; s/p debridement &abx -as above 3. Leukocytopenia: likely 2/2 above -supportive -as above 4. Normocytic anemia: no acute bleed noted:s/p PRBC transfusion 01/19; stable -monitor -transfuse as needed 5. Thrombocytopenia 2/2 #2; resolved -bleeding precautions -supportive 6. Hyponatremia: now with hypernatremia; improved -judicious fluid management 7.ILYA: bilateral hydronephrosis with bilateral renal cyst; cr improved -judicious fluid management avoid nephrotoxic meds -renal dosing for meds 8. Hypocalcemia with hypoalbuminemia: likely 2/2 malnutrition, improved -nutrition optimization -optimize lytes 9. UTI: urine cx: enterobacter cloacae; afebrile; s/p abx 10. Hypomagnesemia; normalized -replete and monitor Patient seen and examined in collaboration with Dr. El Root Problems: Subjective 24 Hr Interval Summary Awaiting placement. Feels well. Pain/discomfort in lower back improved. Sacral wound drainage minimal. No gore, sz, dizziness, sob, cp, palpitations, n/v/d, fevers, chills Exam/Review of Systems Vital Signs Vitals Vital Signs Date Time Temp Pulse Resp B/P Pulse Ox O2 Delivery O2 Flow Rate FiO2 01/30/17 07:42 97.3 90 18 166/82 98 Intake and Output 01/29/17 01/29/17 01/30/17 15:00 23:00 07:00 Intake Total 500 ml 2250 ml 900 ml Output Total 2575 ml 1000 ml Balance 500 ml -325 ml -100 ml Exam Free Text/Dictation Constitutional: alert, oriented Psych: normal mood Head: atraumatic, normocephalic Eyes: PERRL, nl lids, nl sclera ENMT: mucosa pink and moist, nl nasal mucosa & septum Neck: non-tender, supple Respiratory: normal air movement Cardiovascular: nl pulses, regular rate and rhythm Gastrointestinal: non-tender, soft Musculoskeletal: nl extremities to inspection Extremities: normal pulses Neurological: nl speech, nl strength Skin: other (sacral wound with min slough, serosanguineous drainage, periwound erythema improved, no odor) Lymph: nl lymph nodes Results Result Diagram: 01/30/17 0527 DORINA LITTLEJOHN NP Jan 30, 2017 11:46
--- NOTE | 2017-01-30 12:15 | PN ---
Date/Time of Note Date/Time of Note DATE: 01/30/17 TIME: 12:11 Assessment/Plan VTE Prophylaxis VTE Prophylaxis Intervention: heparin Lines/Catheters IV [facility] Type (from [facility] Peripheral IV Urinary Cath still in place: No Assessment/Plan Chief Complaint/Hosp Course 1. Sacrococcygeal stage IV decubitus ulcer with necrotic tissue. Infected. Status post debridement. Wound culture positive for E. coli. Status post antimicrobials as per infectious diseases. 2. Bilateral gluteal cellulitis. Local wound care. Status post antimicrobials as per infectious diseases. 3. Urinary tract infection. Urine culture positive for Enterobacter cloacae. Status post antimicrobials as per infectious diseases. 4. Acute nonoliguric kidney injury. Unknown baseline creatinine. Continue to monitor renal function closely. 5. Normocytic, normochromic anemia. Underlying iron deficiency. Continue iron supplements. 6. Benign prostatic hypertrophy. Continue tamsulosin. 7. Debility. Status post physical therapy evaluation. We will reevaluate the patient since the patient has been bedridden for a while. 8. Possible underlying psychiatric disorder. Continue mood stabilizers. 9. Fluids, electrolytes, and nutrition. Regular diet. 10. DVT prophylaxis. Subcutaneous heparin. 11. Gastrointestinal prophylaxis. Histamine 2 receptor blockers. 12. Plan. Continue local wound care. Continue repositioning. Await placement. Reorder physical therapy. Case discussed with Dr. Atkins. Problems: Subjective 24 Hr Interval Summary Free Text/Dictation Patient remains afebrile. Exam/Review of Systems Vital Signs Vitals Vital Signs Date Time Temp Pulse Resp B/P Pulse Ox O2 Delivery O2 Flow Rate FiO2 01/30/17 07:42 97.3 90 18 166/82 98 Intake and Output 01/29/17 01/29/17 01/30/17 15:00 23:00 07:00 Intake Total 500 ml 2250 ml 900 ml Output Total 2575 ml 1000 ml Balance 500 ml -325 ml -100 ml Exam General: Adequately build 56 year-old male lying in bed in no apparent distress. HEENT: Normocephalic, atraumatic. Eyes: Anicteric sclerae, conjunctivae clear. ENT: Nasal septum midline, oral mucosa moist. Neck supple, no JVD noticed. Respiratory: Bilaterally diminished breath sounds. No use of accessory muscles of respiration. No adventitious breath sounds. Cardiovascular: S1, S2 heard. No murmurs or gallops. Abdomen: Soft, nontender, and nondistended. Bowel sounds positive in all 4 quadrants. Genitourinary: Deferred. Extremities: No cyanosis, no clubbing, no edema. Peripheral pulses palpable. Neurologic: Cranial nerves II through XII grossly intact. The patient is awake, alert, and oriented. Results Result Diagram: 01/30/17 0527 Results 24 hrs Laboratory Tests Test 01/30/17 05:27 Sodium Level 145 H Potassium Level 4.4 Chloride Level 108 Carbon Dioxide Level 26 Anion Gap 15 Blood Urea Nitrogen 20 Creatinine 1.70 H Glucose Level 98 Calcium Level 8.3 L Magnesium Level 1.9 Medications Medications Current Medications Aripiprazole (Abilify) 5 mg DAILY PO Last administered on 01/30/17 08:19; Admin Dose 5 MG; Start 01/18/17 at 09:00 Aspirin (Halfprin) 81 mg DAILY PO Last administered on 01/30/17 08:20; Admin Dose 81 MG; Start 01/18/17 at 09:00 Buspirone HCl (Buspar) 10 mg TID PO Last administered on 01/30/17 08:20; Admin Dose 10 MG; Start 01/18/17 at 09:00 Clonazepam (Klonopin) 1 mg BID PRN PO ANXIETY Last administered on 01/30/17 08 :22; Admin Dose 1 MG; Start 01/18/17 at 00:30 Duloxetine HCl (Cymbalta) 120 mg DAILY PO Last administered on 01/30/17 08:20 ; Admin Dose 120 MG; Start 01/18/17 at 09:00 Folic Acid (Folic Acid) 1 mg DAILY PO Last administered on 01/30/17 08:19; Admin Dose 1 MG; Start 01/18/17 at 09:00 Pregabalin (Lyrica) 50 mg BID PO Last administered on 01/30/17 08:21; Admin Dose 50 MG; Start 01/18/17 at 09:00 Ropinirole HCl (Requip) 0.25 mg HS PO Last administered on 01/29/17 20:40; Admin Dose 0.25 MG; Start 01/18/17 at 21:00 Tamsulosin HCl (Flomax) 0.4 mg HS PO Last administered on 01/29/17 20:40; Admin Dose 0.4 MG; Start 01/18/17 at 21:00 Atorvastatin Calcium (Lipitor) 5 mg QHS PO Last administered on 01/29/17 20:40 ; Admin Dose 5 MG; Start 01/18/17 at 21:00 Risperidone (Risperdal) 2 mg BID PO Last administered on 01/30/17 08:20; Admin Dose 2 MG; Start 01/18/17 at 00:30 Hydromorphone HCl (Dilaudid) 0.5 mg Q4H PRN IV PAIN Last administered on 09:41; Admin Dose 0.5 MG; Start 01/18/17 at 00:30 Morphine Sulfate (morphine) 4 mg Q4H PRN IV pain Last administered on 17:29; Admin Dose 4 MG; Start 01/18/17 at 14:00 Docusate Sodium (Colace) 250 mg DAILY PO Last administered on 01/30/17 08:20; Admin Dose 250 MG; Start 01/19/17 at 09:00 Oxycodone HCl (Oxycontin) 10 mg BID PO Last administered on 01/30/17 08:21; Admin Dose 10 MG; Start 01/18/17 at 14:23 Zinc Sulfate (Zinc Sulfate) 220 mg DAILY PO Last administered on 01/30/17 08: 20; Admin Dose 220 MG; Start 01/20/17 at 13:00 Polyethylene Glycol (Miralax) 8.5 gm DAILY PO Last administered on 01/30/17 08 :22; Admin Dose 8.5 GM; Start 01/21/17 at 09:00 Zolpidem Tartrate (Ambien) 5 mg HS PRN PO INSOMNIA Last administered on 21:43; Admin Dose 5 MG; Start 01/21/17 at 23:30 Sodium Hypochlorite (Dakin'S (1/4 Strength)) 1 applic DAILY IRR Last administered on 01/30/17 08:25; Admin Dose 1 APPLIC; Start 01/23/17 at 09:00 Collagenase (Santyl) 1 applic DAILY TOP Last administered on 01/30/17 08:25; Admin Dose 1 APPLIC; Start 01/23/17 at 09:00 Lactobacillus Acidophilus (Florajen3 Capsule) 1 each BID PO Last administered on 7/24/17at 08:19; Admin Dose 1 EACH; Start 01/24/17 at 21:00 Acetaminophen/ Hydrocodone Bitart ([place] (5/325)) 1 tab Q4H PRN PO PAIN Last administered on 01/30/17 11:43; Admin Dose 1 TAB; Start 01/26/17 at 14:30 Lorazepam 1 mg 1 mg QHS PRN PO INSOMNIA Last administered on 01/29/17 21:37; Admin Dose 1 MG; Start 01/27/17 at 21:30 Dextrose (D5W) 1,000 ml @ 100 mls/hr Q10H IV Last administered on 01/30/17 08 :18; Admin Dose 100 MLS/HR; Start 01/29/17 at 18:00; Stop 01/30/17 at 13:59 BELEN DIAZ NP Jan 30, 2017 12:15
[2017-01-30] MEDS ORDERED: hydrALAzine 20 MG INJ IV PRN (12:30)
--- NOTE | 2017-01-30 13:16 | CONS ---
Date/Time of Note Date/Time of Note DATE: 01/30/17 TIME: 13:15 Assessment/Plan Assessment/Plan Chief Complaint/Hosp Course Awake, feels good no fevers, looks comfortable Microbiology: Blood cultures negative urine culture growing Enterobacter, wound culture growing E. coli Antibiotics: s/p Levaquin Physical examination: Well-developed fragile elderly man who is awake in no distress. Head atraumatic normocephalic, sclera nonicteric. Neck is supple trachea midline. Chest rise symmetrical breath sounds clear bilaterally. No shortness of breath. Heart: S1, S2. Abdomen soft, bowel tones present. Extremities no cyanosis. Skin was unstageable sacral wound. Assessment: 1. Unstageable sacral wound, status post debridement 2. Urinary tract infection 3. Acute on chronic anemia 4. Acute renal failure possible chronic kidney disease 5. History of hepatitis C virus Plan: Remains stable, continue local wound care per surgical recommendations, continue off load, completed antibiotics. Will see prn Discussed with RN Problems: Consultation Date/Type/Reason Admit Date/Time Jan 17, 2017 at 21:06 Initial Consult Date 01/19/17 Type of Consultation: id Exam/Review of Systems Vital Signs Vitals Vital Signs Date Time Temp Pulse Resp B/P Pulse Ox O2 Delivery O2 Flow Rate FiO2 01/30/17 07:42 97.3 90 18 166/82 98 Intake and Output 01/29/17 01/29/17 01/30/17 15:00 23:00 07:00 Intake Total 500 ml 2250 ml 900 ml Output Total 2575 ml 1000 ml Balance 500 ml -325 ml -100 ml Results Result Diagram: 01/30/17 0527 Results 24 hrs Laboratory Tests Test 01/30/17 05:27 Sodium Level 145 H Potassium Level 4.4 Chloride Level 108 Carbon Dioxide Level 26 Anion Gap 15 Blood Urea Nitrogen 20 Creatinine 1.70 H Glucose Level 98 Calcium Level 8.3 L Magnesium Level 1.9 Medications Medications Current Medications Aripiprazole (Abilify) 5 mg DAILY PO Last administered on 01/30/17 08:19; Admin Dose 5 MG; Start 01/18/17 at 09:00 Aspirin (Halfprin) 81 mg DAILY PO Last administered on 01/30/17 08:20; Admin Dose 81 MG; Start 01/18/17 at 09:00 Buspirone HCl (Buspar) 10 mg TID PO Last administered on 01/30/17 08:20; Admin Dose 10 MG; Start 01/18/17 at 09:00 Clonazepam (Klonopin) 1 mg BID PRN PO ANXIETY Last administered on 01/30/17 08 :22; Admin Dose 1 MG; Start 01/18/17 at 00:30 Duloxetine HCl (Cymbalta) 120 mg DAILY PO Last administered on 01/30/17 08:20 ; Admin Dose 120 MG; Start 01/18/17 at 09:00 Folic Acid (Folic Acid) 1 mg DAILY PO Last administered on 01/30/17 08:19; Admin Dose 1 MG; Start 01/18/17 at 09:00 Pregabalin (Lyrica) 50 mg BID PO Last administered on 01/30/17 08:21; Admin Dose 50 MG; Start 01/18/17 at 09:00 Ropinirole HCl (Requip) 0.25 mg HS PO Last administered on 01/29/17 20:40; Admin Dose 0.25 MG; Start 01/18/17 at 21:00 Tamsulosin HCl (Flomax) 0.4 mg HS PO Last administered on 01/29/17 20:40; Admin Dose 0.4 MG; Start 01/18/17 at 21:00 Atorvastatin Calcium (Lipitor) 5 mg QHS PO Last administered on 01/29/17 20:40 ; Admin Dose 5 MG; Start 01/18/17 at 21:00 Risperidone (Risperdal) 2 mg BID PO Last administered on 01/30/17 08:20; Admin Dose 2 MG; Start 01/18/17 at 00:30 Hydromorphone HCl (Dilaudid) 0.5 mg Q4H PRN IV PAIN Last administered on 09:41; Admin Dose 0.5 MG; Start 01/18/17 at 00:30 Morphine Sulfate (morphine) 4 mg Q4H PRN IV pain Last administered on 17:29; Admin Dose 4 MG; Start 01/18/17 at 14:00 Docusate Sodium (Colace) 250 mg DAILY PO Last administered on 01/30/17 08:20; Admin Dose 250 MG; Start 01/19/17 at 09:00 Oxycodone HCl (Oxycontin) 10 mg BID PO Last administered on 01/30/17 08:21; Admin Dose 10 MG; Start 01/18/17 at 14:23 Zinc Sulfate (Zinc Sulfate) 220 mg DAILY PO Last administered on 01/30/17 08: 20; Admin Dose 220 MG; Start 01/20/17 at 13:00 Polyethylene Glycol (Miralax) 8.5 gm DAILY PO Last administered on 01/30/17 08 :22; Admin Dose 8.5 GM; Start 01/21/17 at 09:00 Zolpidem Tartrate (Ambien) 5 mg HS PRN PO INSOMNIA Last administered on 21:43; Admin Dose 5 MG; Start 01/21/17 at 23:30 Sodium Hypochlorite (Dakin'S (1/4 Strength)) 1 applic DAILY IRR Last administered on 01/30/17 08:25; Admin Dose 1 APPLIC; Start 01/23/17 at 09:00 Collagenase (Santyl) 1 applic DAILY TOP Last administered on 01/30/17 08:25; Admin Dose 1 APPLIC; Start 01/23/17 at 09:00 Lactobacillus Acidophilus (Florajen3 Capsule) 1 each BID PO Last administered on 01/30/17 08:19; Admin Dose 1 EACH; Start 01/24/17 at 21:00 Acetaminophen/ Hydrocodone Bitart ([place] (5/325)) 1 tab Q4H PRN PO PAIN Last administered on 01/30/17 11:43; Admin Dose 1 TAB; Start 01/26/17 at 14:30 Lorazepam 1 mg 1 mg QHS PRN PO INSOMNIA Last administered on 01/29/17 21:37; Admin Dose 1 MG; Start 01/27/17 at 21:30 Dextrose 1,000 ml @ 100 mls/hr Q10H IV Last administered on 01/30/17 08:18; Admin Dose 100 MLS/HR; Start 01/29/17 at 18:00; Stop 01/30/17 at 13:59 Ferric Sodium Gluconate Complex/ Sodium Chloride (Ferrlecit/NS) 110 ml @ 110 mls/hr Q24H IVPB ; Start 01/30/17 at 13:30; Stop 02/03/17 at 14:29 Heparin Sodium (Porcine) (Heparin (5000 Units/0.5 ml)) 5,000 unit BID SC ; Start 01/30/17 at 21:00 Famotidine (Pepcid) 20 mg HS PO ; Start 01/30/17 at 21:00 Hydralazine HCl (Apresoline) 10 mg Q6H PRN IV SBP greater than 160; Start 01/30 at 12:30 LORI ROBLERO NP Jan 30, 2017 13:16
[2017-01-30 13:28] VITALS: BP 113/60; RESP 18
[2017-01-30] MEDS: SOD FERRIC GLUC COMPLX 125 MG in SOD CHLORIDE 0.9% 100 ML IVPB SCH (13:46)
[2017-01-30 20:00] VITALS: BP 153/71; RESP 20
[2017-01-30] MEDS: ROPINIROLE 0.25 MG TAB PO SCH (21:00)
[2017-01-30] MEDS: FAMOTIDINE 20 MG TAB PO SCH (21:00)
[2017-01-30] MEDS: TAMSULOSIN (SR) 0.4 MG CAP PO SCH (21:00)
[2017-01-30] MEDS: ATORVASTATIN 10 MG TAB PO SCH (21:00)
[2017-01-30] MEDS: HEPARIN 5,000 UNIT/0.5 ML VIAL SC SCH (21:00)
[2017-01-31 02:00] VITALS: BP 136/80; RESP 20
[2017-01-31 05:34] LABS: BASOPHILS % 0.6 % (0.0-2.0); EOSINOPHILS # 0.1 10^3/ul (0.0-0.5); HEMATOCRIT 30.9 % (42.0-52.0); HEMOGLOBIN 10.2 g/dl (14.0-18.0); LYMPHOCYTES # 0.9 10^3/ul (0.8-2.9); LYMPHOCYTES % 27.3 % (15.0-51.0); MEAN CORPUSCULAR HEMOGLOBIN 31.9 pg (29.0-33.0); MEAN CORPUSCULAR VOLUME 96.6 fl (82.0-101.0); MEAN PLATELET VOLUME 9.4 fl (7.4-10.4); MONOCYTE # 0.3 10^3/ul (0.3-0.9); NEUTROPHILS % 59.5 % (39.0-77.0); PLATELET COUNT 124 10^3/UL (140-415); WHITE BLOOD COUNT 3.3 10^3/ul (4.8-10.8)
[2017-01-31 06:44] LABS: ALBUMIN 2.9 g/dl (3.3-4.9); ALBUMIN/GLOBULIN RATIO 0.82; BILIRUBIN,INDIRECT 0.2 mg/dl (0-1.1); BILIRUBIN,TOTAL 0.2 mg/dl (0.2-1.3); CALCIUM 8.6 mg/dl (8.4-10.2); CREATININE 1.85 mg/dl (0.61-1.24); POTASSIUM 4.9 mmol/L (3.5-5.1); TOTAL PROTEIN 6.4 g/dl (6.1-8.1)
[2017-01-31 06:57] LABS: MAGNESIUM 1.7 mg/dl (1.7-2.5); PHOSPHORUS 4.2 mg/dl (2.5-4.9)
--- NOTE | 2017-01-31 07:20 | PN ---
Date/Time of Note Date/Time of Note DATE: 01/31/17 TIME: 07:19 Assessment/Plan VTE Prophylaxis VTE Prophylaxis Intervention: heparin Lines/Catheters IV Catheter Type (from [facility]): Saline Lock Urinary Cath still in place: No Assessment/Plan Chief Complaint/Hosp Course 1. Sacrococcygeal stage IV decubitus ulcer with necrotic tissue. Infected. Status post debridement. Wound culture positive for E. coli. Status post antimicrobials as per infectious diseases. 2. Bilateral gluteal cellulitis. Local wound care. Status post antimicrobials as per infectious diseases. 3. Urinary tract infection. Urine culture positive for Enterobacter cloacae. Status post antimicrobials as per infectious diseases. 4. Acute nonoliguric kidney injury. Unknown baseline creatinine. Continue to monitor renal function closely. 5. Normocytic, normochromic anemia. Underlying iron deficiency. Continue iron supplements. 6. Benign prostatic hypertrophy. Continue tamsulosin. 7. Debility. Status post physical therapy evaluation. We will reevaluate the patient since the patient has been bedridden for a while. 8. Possible underlying psychiatric disorder. Continue mood stabilizers. 9. Fluids, electrolytes, and nutrition. Regular diet. 10. DVT prophylaxis. Subcutaneous heparin. 11. Gastrointestinal prophylaxis. Histamine 2 receptor blockers. 12. Plan. Continue local wound care. Continue repositioning. Await placement. Case discussed with Dr. Atkins. Problems: Subjective 24 Hr Interval Summary Free Text/Dictation Patient remains afebrile. No changes in status. Exam/Review of Systems Vital Signs Vitals Vital Signs Date Time Temp Pulse Resp B/P Pulse Ox O2 Delivery O2 Flow Rate FiO2 01/31/17 02:00 98.4 80 20 136/80 98 Intake and Output 01/30/17 01/30/17 01/31/17 15:00 23:00 07:00 Intake Total 110 ml 2460 ml Output Total 2550 ml Balance 110 ml -90 ml Exam General: Adequately build 56 year-old male lying in bed in no apparent distress. HEENT: Normocephalic, atraumatic. Eyes: Anicteric sclerae, conjunctivae clear. ENT: Nasal septum midline, oral mucosa moist. Neck supple, no JVD noticed. Respiratory: Bilaterally diminished breath sounds. No use of accessory muscles of respiration. No adventitious breath sounds. Cardiovascular: S1, S2 heard. No murmurs or gallops. Abdomen: Soft, nontender, and nondistended. Bowel sounds positive in all 4 quadrants. Genitourinary: Deferred. Extremities: No cyanosis, no clubbing, no edema. Peripheral pulses palpable. Neurologic: Cranial nerves II through XII grossly intact. The patient is awake, alert, and oriented. Results Result Diagram: 01/31/17 0505 01/30/17 0527 Results 24 hrs Laboratory Tests Test 01/31/17 05:05 White Blood Count 3.3 L Red Blood Count 3.20 L Hemoglobin 10.2 L Hematocrit 30.9 L Mean Corpuscular Volume 96.6 Mean Corpuscular Hemoglobin 31.9 Mean Corpuscular Hemoglobin Concent 33.0 Red Cell Distribution Width 14.0 Platelet Count 124 L Mean Platelet Volume 9.4 Neutrophils % 59.5 Lymphocytes % 27.3 Monocytes % 9.0 Eosinophils % 3.0 Basophils % 0.6 Nucleated Red Blood Cells % 0.0 Neutrophils # 2.0 Lymphocytes # 0.9 Monocytes # 0.3 Eosinophils # 0.1 Basophils # 0.0 Nucleated Red Blood Cells # 0.0 Medications Medications Current Medications Aripiprazole (Abilify) 5 mg DAILY PO Last administered on 01/30/17 08:19; Admin Dose 5 MG; Start 01/18/17 at 09:00 Aspirin (Halfprin) 81 mg DAILY PO Last administered on 01/30/17 08:20; Admin Dose 81 MG; Start 01/18/17 at 09:00 Buspirone HCl (Buspar) 10 mg TID PO Last administered on 01/30/17 21:00; Admin Dose 10 MG; Start 01/18/17 at 09:00 Clonazepam (Klonopin) 1 mg BID PRN PO ANXIETY Last administered on 01/30/17 08 :22; Admin Dose 1 MG; Start 01/18/17 at 00:30 Duloxetine HCl (Cymbalta) 120 mg DAILY PO Last administered on 01/30/17 08:20 ; Admin Dose 120 MG; Start 01/18/17 at 09:00 Folic Acid (Folic Acid) 1 mg DAILY PO Last administered on 01/30/17 08:19; Admin Dose 1 MG; Start 01/18/17 at 09:00 Pregabalin (Lyrica) 50 mg BID PO Last administered on 01/30/17 21:00; Admin Dose 50 MG; Start 01/18/17 at 09:00 Ropinirole HCl (Requip) 0.25 mg HS PO Last administered on 01/30/17 21:00; Admin Dose 0.25 MG; Start 01/18/17 at 21:00 Tamsulosin HCl (Flomax) 0.4 mg HS PO Last administered on 01/30/17 21:00; Admin Dose 0.4 MG; Start 01/18/17 at 21:00 Atorvastatin Calcium (Lipitor) 5 mg QHS PO Last administered on 01/30/17 21:00 ; Admin Dose 5 MG; Start 01/18/17 at 21:00 Risperidone (Risperdal) 2 mg BID PO Last administered on 01/30/17 21:00; Admin Dose 2 MG; Start 01/18/17 at 00:30 Hydromorphone HCl (Dilaudid) 0.5 mg Q4H PRN IV PAIN Last administered on 20:05; Admin Dose 0.5 MG; Start 01/18/17 at 00:30 Morphine Sulfate (morphine) 4 mg Q4H PRN IV pain Last administered on 17:29; Admin Dose 4 MG; Start 01/18/17 at 14:00 Docusate Sodium (Colace) 250 mg DAILY PO Last administered on 01/30/17 08:20; Admin Dose 250 MG; Start 01/19/17 at 09:00 Oxycodone HCl (Oxycontin) 10 mg BID PO Last administered on 01/30/17 21:00; Admin Dose 10 MG; Start 01/18/17 at 14:23 Zinc Sulfate (Zinc Sulfate) 220 mg DAILY PO Last administered on 01/30/17 08: 20; Admin Dose 220 MG; Start 01/20/17 at 13:00 Polyethylene Glycol (Miralax) 8.5 gm DAILY PO Last administered on 01/30/17 08 :22; Admin Dose 8.5 GM; Start 01/21/17 at 09:00 Zolpidem Tartrate (Ambien) 5 mg HS PRN PO INSOMNIA Last administered on 21:43; Admin Dose 5 MG; Start 01/21/17 at 23:30 Sodium Hypochlorite (Dakin'S (1/4 Strength)) 1 applic DAILY IRR Last administered on 01/30/17 08:25; Admin Dose 1 APPLIC; Start 01/23/17 at 09:00 Collagenase (Santyl) 1 applic DAILY TOP Last administered on 01/30/17 08:25; Admin Dose 1 APPLIC; Start 01/23/17 at 09:00 Lactobacillus Acidophilus (Florajen3 Capsule) 1 each BID PO Last administered on 01/30/17 08:19; Admin Dose 1 EACH; Start 01/24/17 at 21:00 Acetaminophen/ Hydrocodone Bitart ([place] (5/325)) 1 tab Q4H PRN PO PAIN Last administered on 01/30/17 11:43; Admin Dose 1 TAB; Start 01/26/17 at 14:30 Lorazepam 1 mg 1 mg QHS PRN PO INSOMNIA Last administered on 01/29/17 21:37; Admin Dose 1 MG; Start 01/27/17 at 21:30 Ferric Sodium Gluconate Complex/ Sodium Chloride (Ferrlecit/NS) 110 ml @ 110 mls/hr Q24H IVPB Last administered on 01/30/17 13:46; Admin Dose 110 MLS/HR; Start 01/30/17 at 13:30; Stop 02/03/17 at 14:29 Heparin Sodium (Porcine) (Heparin (5000 Units/0.5 ml)) 5,000 unit BID SC Last administered on 01/30/17 21:00; Admin Dose 5,000 UNIT; Start 01/30/17 at 21:00 Famotidine (Pepcid) 20 mg HS PO Last administered on 01/30/17 21:00; Admin Dose 20 MG; Start 01/30/17 at 21:00 Hydralazine HCl (Apresoline) 10 mg Q6H PRN IV SBP greater than 160; Start 01/30 at 12:30 BELEN DIAZ NP Jan 31, 2017 07:20
[2017-01-31 07:36] VITALS: BP 150/70; RESP 18
[2017-01-31] MEDS: SODIUM HYPOCHLORITE 0.125% 473 ML BTL IRR SCH (09:00)
[2017-01-31] MEDS: HEPARIN 5,000 UNIT/0.5 ML VIAL SC SCH ×2 (09:00→20:35)
[2017-01-31] MEDS: COLLAGENASE 30 GM TUBE TOP SCH (09:00)
[2017-01-31] MEDS: POLYETHYLENE GLYCOL 17 GM PACKET PO SCH (09:01)
[2017-01-31] MEDS: oxyCODONE (CR) 10 MG TAB [oxyCONTIN] PO SCH ×2 (09:01→20:39)
[2017-01-31] MEDS: PREGABALIN 25 MG CAP PO SCH ×2 (09:01→20:39)
[2017-01-31] MEDS: DOCUSATE SODIUM 250 MG CAP PO SCH (09:02)
[2017-01-31] MEDS: ASPIRIN (EC) 81 MG TAB PO SCH (09:02)
[2017-01-31] MEDS: ARIPIPRAZOLE 5 MG TAB PO SCH (09:02)
[2017-01-31] MEDS: L ACIDOPHIL/B LACTIS/B LONGUM CAPSULE PO SCH ×2 (09:02→20:31)
[2017-01-31] MEDS: ZINC SULFATE 220 MG CAP PO SCH (09:02)
[2017-01-31] MEDS: FOLIC ACID 1 MG TAB PO SCH (09:02)
[2017-01-31] MEDS: RISPERIDONE 2 MG TAB PO SCH ×2 (09:02→20:30)
[2017-01-31] MEDS: BUSPIRONE 10 MG TAB PO SCH ×3 (09:03→20:30)
[2017-01-31] MEDS: DULOXETINE 30 MG CAP DR PO SCH (09:03)
[2017-01-31] MEDS: clonAZEPAM 0.5 MG TAB PO PRN ×2 (09:06→20:39)
[2017-01-31] MEDS: HYDROmorphONE 1 MG/ML SYG IV PRN ×3 (10:21→18:34)
[2017-01-31] MEDS: SOD FERRIC GLUC COMPLX 125 MG in SOD CHLORIDE 0.9% 100 ML IVPB SCH (13:37)
[2017-01-31] MEDS: HYDROCODONE/APAP (5/325) TAB PO PRN (13:37)
[2017-01-31 14:46] VITALS: BP 154/77; RESP 16
--- NOTE | 2017-01-31 15:28 | PN ---
Date/Time of Note Date/Time of Note DATE: 01/31/17 TIME: 15:23 Assessment/Plan Lines/Catheters IV Catheter Type (from [facility]): Saline Lock [facility] in Place (from [facility]): No Assessment/Plan Chief Complaint/Hosp Course 1. Sacral wound: s/p debridement 01/22, periwound redness improved, min drainage no odor; -local care -frequent turning and repositioning -specialty bed -nutrition optimization -debridement prn 2. Sacral cellulitis: 2/2 above: CT: cellulitis surrounding an ulceration which extends into the subcutaneous fat abutting the dorsal surface of the coccyx without evidence of an associated subcutaneous abscess or osteomyelitis;afebrile ; periwound erythema improving; wound cx: ecoli; s/p debridement &abx -as above 3. Leukocytopenia: likely 2/2 above -supportive -as above 4. Normocytic anemia: no acute bleed noted:s/p PRBC transfusion 01/19; stable -monitor -transfuse as needed 5. Thrombocytopenia 2/2 #2; resolved -bleeding precautions -supportive 6. Hyponatremia: now with hypernatremia;resolved -judicious fluid management 7.ILYA: bilateral hydronephrosis with bilateral renal cyst; cr improved -judicious fluid management avoid nephrotoxic meds -renal dosing for meds 8. Hypocalcemia with hypoalbuminemia: likely 2/2 malnutrition, improved -nutrition optimization -optimize lytes 9. UTI: urine cx: enterobacter cloacae; afebrile; s/p abx 10. Hypomagnesemia; normalized -replete and monitor Patient seen and examined in collaboration with Dr. El Root Problems: Subjective 24 Hr Interval Summary Awaiting placement. Feeling well. Back pain improved. Min drainage from wound. No c/o gore, dizziness, fainting, chills, fever,cp, palpitations, sob, n/v/d. Exam/Review of Systems Vital Signs Vitals Vital Signs Date Time Temp Pulse Resp B/P Pulse Ox O2 Delivery O2 Flow Rate FiO2 01/31/17 14:46 97.8 75 16 154/77 98 Intake and Output 01/30/17 01/30/17 01/31/17 15:00 23:00 07:00 Intake Total 110 ml 2460 ml Output Total 2550 ml Balance 110 ml -90 ml Exam Free Text/Dictation Constitutional: alert, oriented Psych: normal mood Head: atraumatic, normocephalic Eyes: PERRL, nl lids, nl sclera ENMT: mucosa pink and moist, nl nasal mucosa & septum Neck: non-tender, supple Respiratory: normal air movement Cardiovascular: nl pulses, regular rate and rhythm Gastrointestinal: non-tender, soft Musculoskeletal: nl extremities to inspection Extremities: normal pulses Neurological: nl speech, nl strength Skin: other (sacral wound with min slough, serosanguineous drainage, periwound erythema improved, no odor) Lymph: nl lymph nodes Results Result Diagram: 01/31/17 0505 01/31/17 0505 DORINA LITTLEJOHN NP Jan 31, 2017 15:28
[2017-01-31 19:34] VITALS: BP 125/72; RESP 18
[2017-01-31] MEDS: ROPINIROLE 0.25 MG TAB PO SCH (20:30)
[2017-01-31] MEDS: ATORVASTATIN 10 MG TAB PO SCH (20:30)
[2017-01-31] MEDS: TAMSULOSIN (SR) 0.4 MG CAP PO SCH (20:31)
[2017-01-31] MEDS: FAMOTIDINE 20 MG TAB PO SCH (20:31)
[2017-01-31] MEDS: LORAZEPAM 1 MG TAB PO PRN (21:42)
[2017-02-01 02:30] VITALS: BP 137/79
--- NOTE | 2017-02-01 07:28 | PN ---
Date/Time of Note Date/Time of Note DATE: 02/01/17 TIME: 07:27 Assessment/Plan VTE Prophylaxis VTE Prophylaxis Intervention: heparin Lines/Catheters IV [facility]from [facility] Saline Lock Urinary Cath still in place: No Assessment/Plan Chief Complaint/Hosp Course 1. Sacrococcygeal stage IV decubitus ulcer with necrotic tissue. Infected. Status post debridement. Wound culture positive for E. coli. Status post antimicrobials as per infectious diseases. 2. Bilateral gluteal cellulitis. Local wound care. Status post antimicrobials as per infectious diseases. 3. Urinary tract infection. Urine culture positive for Enterobacter cloacae. Status post antimicrobials as per infectious diseases. 4. Acute nonoliguric kidney injury. Unknown baseline creatinine. Continue to monitor renal function closely. 5. Normocytic, normochromic anemia. Underlying iron deficiency. Continue iron supplements. 6. Benign prostatic hypertrophy. Continue tamsulosin. 7. Debility. Status post physical therapy evaluation. We will reevaluate the patient since the patient has been bedridden for a while. 8. Possible underlying psychiatric disorder. Continue mood stabilizers. 9. Fluids, electrolytes, and nutrition. Regular diet. 10. DVT prophylaxis. Subcutaneous heparin. 11. Gastrointestinal prophylaxis. Histamine 2 receptor blockers. 12. Plan. Continue local wound care. Continue repositioning. Await placement. Case discussed with Dr. Atkins. Problems: Subjective 24 Hr Interval Summary Free Text/Dictation The patient remains afebrile. Exam/Review of Systems Vital Signs Vitals Vital Signs Date Time Temp Pulse Resp B/P Pulse Ox O2 Delivery O2 Flow Rate FiO2 02/01/17 02:30 97.8 79 137/79 97 01/31/17 19:34 18 Intake and Output 01/31/17 01/31/17 02/01/17 15:00 23:00 07:00 Intake Total 110 ml Balance 110 ml Exam General: Adequately build 56 year-old male lying in bed in no apparent distress. HEENT: Normocephalic, atraumatic. Eyes: Anicteric sclerae, conjunctivae clear. ENT: Nasal septum midline, oral mucosa moist. Neck supple, no JVD noticed. Respiratory: Bilaterally diminished breath sounds. No use of accessory muscles of respiration. No adventitious breath sounds. Cardiovascular: S1, S2 heard. No murmurs or gallops. Abdomen: Soft, nontender, and nondistended. Bowel sounds positive in all 4 quadrants. Genitourinary: Deferred. Extremities: No cyanosis, no clubbing, no edema. Peripheral pulses palpable. Neurologic: Cranial nerves II through XII grossly intact. The patient is awake, alert, and oriented. Results Result Diagram: 01/31/17 0505 01/31/17 0505 Medications Medications Current Medications Aripiprazole (Abilify) 5 mg DAILY PO Last administered on 01/31/17 09:02; Admin Dose 5 MG; Start 01/18/17 at 09:00 Aspirin (Halfprin) 81 mg DAILY PO Last administered on 01/31/17 09:02; Admin Dose 81 MG; Start 01/18/17 at 09:00 Buspirone HCl (Buspar) 10 mg TID PO Last administered on 01/31/17 20:30; Admin Dose 10 MG; Start 01/18/17 at 09:00 Clonazepam (Klonopin) 1 mg BID PRN PO ANXIETY Last administered on 01/31/17 20 :39; Admin Dose 1 MG; Start 01/18/17 at 00:30 Duloxetine HCl (Cymbalta) 120 mg DAILY PO Last administered on 01/31/17 09:03 ; Admin Dose 120 MG; Start 01/18/17 at 09:00 Folic Acid (Folic Acid) 1 mg DAILY PO Last administered on 01/31/17 09:02; Admin Dose 1 MG; Start 01/18/17 at 09:00 Pregabalin (Lyrica) 50 mg BID PO Last administered on 01/31/17 20:39; Admin Dose 50 MG; Start 01/18/17 at 09:00 Ropinirole HCl (Requip) 0.25 mg HS PO Last administered on 01/31/17 20:30; Admin Dose 0.25 MG; Start 01/18/17 at 21:00 Tamsulosin HCl (Flomax) 0.4 mg HS PO Last administered on 01/31/17 20:31; Admin Dose 0.4 MG; Start 01/18/17 at 21:00 Atorvastatin Calcium (Lipitor) 5 mg QHS PO Last administered on 01/31/17 20:30 ; Admin Dose 5 MG; Start 01/18/17 at 21:00 Risperidone (Risperdal) 2 mg BID PO Last administered on 01/31/17 20:30; Admin Dose 2 MG; Start 01/18/17 at 00:30 Hydromorphone HCl (Dilaudid) 0.5 mg Q4H PRN IV PAIN Last administered on 18:34; Admin Dose 0.5 MG; Start 01/18/17 at 00:30 Morphine Sulfate (morphine) 4 mg Q4H PRN IV pain Last administered on 17:29; Admin Dose 4 MG; Start 01/18/17 at 14:00 Docusate Sodium (Colace) 250 mg DAILY PO Last administered on 01/31/17 09:02; Admin Dose 250 MG; Start 01/19/17 at 09:00 Oxycodone HCl (Oxycontin) 10 mg BID PO Last administered on 01/31/17 20:39; Admin Dose 10 MG; Start 01/18/17 at 14:23 Zinc Sulfate (Zinc Sulfate) 220 mg DAILY PO Last administered on 01/31/17 09: 02; Admin Dose 220 MG; Start 01/20/17 at 13:00 Polyethylene Glycol (Miralax) 8.5 gm DAILY PO Last administered on 01/31/17 09 :01; Admin Dose 8.5 GM; Start 01/21/17 at 09:00 Zolpidem Tartrate (Ambien) 5 mg HS PRN PO INSOMNIA Last administered on 21:43; Admin Dose 5 MG; Start 01/21/17 at 23:30 Sodium Hypochlorite (Dakin'S (1/4 Strength)) 1 applic DAILY IRR Last administered on 01/31/17 09:00; Admin Dose 1 APPLIC; Start 01/23/17 at 09:00 Collagenase (Santyl) 1 applic DAILY TOP Last administered on 01/31/17 09:00; Admin Dose 1 APPLIC; Start 01/23/17 at 09:00 Lactobacillus Acidophilus (Florajen3 Capsule) 1 each BID PO Last administered on 01/31/17 20:31; Admin Dose 1 EACH; Start 01/24/17 at 21:00 Acetaminophen/ Hydrocodone Bitart ([place] (5/325)) 1 tab Q4H PRN PO PAIN Last administered on 01/31/17 13:37; Admin Dose 1 TAB; Start 01/26/17 at 14:30 Lorazepam 1 mg 1 mg QHS PRN PO INSOMNIA Last administered on 01/31/17 21:42; Admin Dose 1 MG; Start 01/27/17 at 21:30 Ferric Sodium Gluconate Complex/ Sodium Chloride (Ferrlecit/NS) 110 ml @ 110 mls/hr Q24H IVPB Last administered on 01/31/17 13:37; Admin Dose 110 MLS/HR; Start 01/30/17 at 13:30; Stop 02/03/17 at 14:29 Heparin Sodium (Porcine) (Heparin (5000 Units/0.5 ml)) 5,000 unit BID SC Last administered on 01/31/17 20:35; Admin Dose 5,000 UNIT; Start 01/30/17 at 21:00 Famotidine (Pepcid) 20 mg HS PO Last administered on 01/31/17 20:31; Admin Dose 20 MG; Start 01/30/17 at 21:00 Hydralazine HCl (Apresoline) 10 mg Q6H PRN IV SBP greater than 160; Start 01/30 at 12:30 BELEN DIAZ PLANT TECH Feb 01, 2017 07:27
[2017-02-01 07:56] VITALS: BP 134/59; RESP 18
[2017-02-01] MEDS: DULOXETINE 30 MG CAP DR PO SCH (09:40)
[2017-02-01] MEDS: PREGABALIN 25 MG CAP PO SCH ×2 (09:40→20:22)
[2017-02-01] MEDS: ARIPIPRAZOLE 5 MG TAB PO SCH (09:40)
[2017-02-01] MEDS: FOLIC ACID 1 MG TAB PO SCH (09:40)
[2017-02-01] MEDS: ASPIRIN (EC) 81 MG TAB PO SCH (09:40)
[2017-02-01] MEDS: DOCUSATE SODIUM 250 MG CAP PO SCH (09:40)
[2017-02-01] MEDS: clonAZEPAM 0.5 MG TAB PO PRN ×2 (09:40→20:22)
[2017-02-01] MEDS: L ACIDOPHIL/B LACTIS/B LONGUM CAPSULE PO SCH ×2 (09:41→20:21)
[2017-02-01] MEDS: ZINC SULFATE 220 MG CAP PO SCH (09:41)
[2017-02-01] MEDS: RISPERIDONE 2 MG TAB PO SCH ×2 (09:41→20:22)
[2017-02-01] MEDS: POLYETHYLENE GLYCOL 17 GM PACKET PO SCH (09:41)
[2017-02-01] MEDS: BUSPIRONE 10 MG TAB PO SCH ×3 (09:41→20:22)
[2017-02-01] MEDS: oxyCODONE (CR) 10 MG TAB [oxyCONTIN] PO SCH ×2 (09:41→20:21)
[2017-02-01] MEDS: HEPARIN 5,000 UNIT/0.5 ML VIAL SC SCH ×2 (10:04→20:24)
[2017-02-01] MEDS: HYDROmorphONE 1 MG/ML SYG IV PRN ×2 (11:12→16:29)
--- NOTE | 2017-02-01 11:51 | CONS ---
DATE OF ADMISSION: 01/17/2017 DATE OF CONSULTATION: 01/18/2017 REASON FOR CONSULTATION: Antibiotic management. HISTORY OF PRESENT ILLNESS: Delano Gates is a 66-year-old male who presents with an infected wound on his buttocks. Patient had a hip fracture some time ago, and he developed rectal pain as well. He felt chills at home and subjective fevers. It is painful for him to have bowel movements. He started noticing a wound approximately 1 month ago. He does state that sitting down on his buttocks is very painful. PAST MEDICAL HISTORY: 1. Chronic renal disease. 2. Possible schizophrenia. 3. Coronary artery disease. 4. Anxiety. 5. Status post lumbosacral surgery. 6. Status post left hip surgery. 7. Status post cholecystectomy. 8. Patient is a former smoker. LABORATORY: On admission his white count was 12.38, hemoglobin and hematocrit of 11/32.3, platelet count 255,000. On the his white count was 5.3. His BUN and creatinine are 35/2.38. Leukocyte esterase urinalysis, leukocyte esterase of 2+. He had 7 white cells per high-powered field. His urine is growing Gram- negative rods. He has blood cultures which are negative. A pelvic CT scan shows cellulitis surrounding an ulceration which extends into the subcutaneous fat, abutting the dorsal surface of the coccyx, without evidence of an associated subcutaneous abscess or osteomyelitis. He has an old, healed, internally fixated fracture of the neck of the proximal left femur, posterior spinal fusion from L4 to S1 with evidence of bilateral L5 laminectomy, severe disc space narrowing at L5/S1. He has atherosclerotic vascular disease. Multiple cysts involving both kidneys. Chest x-ray: No acute abnormalities. Interval clearing of previously noted right lower lobe pneumonia. Renal ultrasound is bilateral hydronephrosis, bilateral renal cysts, and mildly distended urinary bladder with dependent debris in the lumen. PHYSICAL EXAMINATION: GENERAL: Patient is alert, oriented, in no acute distress. VITAL SIGNS: Stable. He is afebrile. SKIN: Without generalized rash. HEENT: Within normal limits. NECK: Supple. Lymph nodes not palpable. CHEST: Decreased breath sounds at the bases. HEART: Without murmur or gallop. ABDOMEN: Soft, nontender. Without organomegaly, splenomegaly, or masses. EXTREMITIES: Without cyanosis, clubbing, or edema. RECTAL AND GENITAL: He has no flank tenderness. His buttock has a stage II ulceration on both sides, surrounding the rectum. Significant surrounding cellulitis with warmth. No obvious abscess. NEUROLOGIC: No focal neurological abnormalities. ASSESSMENT AND PLAN: The patient was started on vancomycin and Levaquin. He received some Zosyn. It would seem that, if there is any drainage from the area, it should be cultured. Wound care has been called. I will add metronidazole to his regimen. He is on vancomycin and Levaquin. Dictated By: Demetris Raygoza MD JD/carmelo/marty /Document#: [id number]
[2017-02-01] MEDS: SOD FERRIC GLUC COMPLX 125 MG in SOD CHLORIDE 0.9% 100 ML IVPB SCH (12:43)
[2017-02-01] MEDS: HYDROCODONE/APAP (5/325) TAB PO PRN ×2 (12:43→21:36)
[2017-02-01 15:28] VITALS: BP 113/65; RESP 18
--- NOTE | 2017-02-01 15:37 | PN ---
Date/Time of Note Date/Time of Note DATE: 02/01/17 TIME: 15:32 Assessment/Plan Lines/Catheters IV Catheter Type (from [facility]): Saline Lock [facility] in Place (from [facility]): No Assessment/Plan Chief Complaint/Hosp Course 1. Sacral wound: s/p debridement 01/22, periwound redness improved, min drainage no odor -local care -frequent turning and repositioning -specialty bed -nutrition optimization -debridement prn 2. Sacral cellulitis: 2/2 above: CT: cellulitis surrounding an ulceration which extends into the subcutaneous fat abutting the dorsal surface of the coccyx without evidence of an associated subcutaneous abscess or osteomyelitis;afebrile ; periwound erythema improving; wound cx: ecoli; s/p debridement &abx -as above 3. Leukocytopenia: likely 2/2 above -supportive -as above 4. Normocytic anemia: no acute bleed noted:s/p PRBC transfusion 01/19; stable -monitor -transfuse as needed 5. Thrombocytopenia 2/2 #2; resolved -bleeding precautions -supportive 6. Hyponatremia: now with hypernatremia;resolved -judicious fluid management 7.ILAY: bilateral hydronephrosis with bilateral renal cyst; cr improved -judicious fluid management avoid nephrotoxic meds -renal dosing for meds 8. Hypocalcemia with hypoalbuminemia: likely 2/2 malnutrition, improved -nutrition optimization -optimize lytes 9. UTI: urine cx: enterobacter cloacae; afebrile; s/p abx 10. Hypomagnesemia; normalized -replete and monitor Patient seen and examined in collaboration with Dr. El Root Problems: Subjective 24 Hr Interval Summary Min temp. Back pain improved. Min drainage from wound. No c/o gore, dizziness, fainting, chills, cp, palpitations, sob, n/v/d. Awaiting placement. Exam/Review of Systems Vital Signs Vitals Vital Signs Date Time Temp Pulse Resp B/P Pulse Ox O2 Delivery O2 Flow Rate FiO2 02/01/17 15:28 99.3 79 18 113/65 98 Intake and Output 01/31/17 01/31/17 02/01/17 15:00 23:00 07:00 Intake Total 110 ml Balance 110 ml Exam Free Text/Dictation Constitutional: alert, oriented Psych: normal mood Head: atraumatic, normocephalic Eyes: PERRL, nl lids, nl sclera ENMT: mucosa pink and moist, nl nasal mucosa & septum Neck: non-tender, supple Respiratory: normal air movement Cardiovascular: nl pulses, regular rate and rhythm Gastrointestinal: non-tender, soft Musculoskeletal: nl extremities to inspection Extremities: normal pulses Neurological: nl speech, nl strength Skin: other (sacral wound with min slough, min drainage, periwound erythema improved, no odor) Lymph: nl lymph nodes Results Result Diagram: 01/31/17 0505 01/31/17 0505 DORINA LITTLEJOHN NP Feb 01, 2017 15:37
[2017-02-01] MEDS ORDERED: ONDANSETRON 4 MG INJ IV PRN (18:30)
[2017-02-01] MEDS: COLLAGENASE 30 GM TUBE TOP SCH (19:30)
[2017-02-01] MEDS: SODIUM HYPOCHLORITE 0.125% 473 ML BTL IRR SCH (19:30)
[2017-02-01] MEDS: morphine 4 MG/ML VIAL IV PRN (19:33)
[2017-02-01 20:04] VITALS: BP 121/66; RESP 20
[2017-02-01] MEDS: ATORVASTATIN 10 MG TAB PO SCH (20:22)
[2017-02-01] MEDS: ROPINIROLE 0.25 MG TAB PO SCH (20:22)
[2017-02-01] MEDS: FAMOTIDINE 20 MG TAB PO SCH (20:22)
[2017-02-01] MEDS: TAMSULOSIN (SR) 0.4 MG CAP PO SCH (20:22)
[2017-02-01] MEDS: LORAZEPAM 1 MG TAB PO PRN (21:37)
[2017-02-02 02:55] VITALS: BP 120/68; RESP 20
[2017-02-02] MEDS: HYDROCODONE/APAP (5/325) TAB PO PRN ×3 (04:09→20:00)
[2017-02-02 07:54] VITALS: BP 145/74; RESP 18
[2017-02-02] MEDS: POLYETHYLENE GLYCOL 17 GM PACKET PO SCH (09:00)
[2017-02-02] MEDS: COLLAGENASE 30 GM TUBE TOP SCH (09:20)
[2017-02-02] MEDS: SODIUM HYPOCHLORITE 0.125% 473 ML BTL IRR SCH (09:20)
[2017-02-02] MEDS: DOCUSATE SODIUM 250 MG CAP PO SCH (09:20)
[2017-02-02] MEDS: ARIPIPRAZOLE 5 MG TAB PO SCH (09:20)
[2017-02-02] MEDS: RISPERIDONE 2 MG TAB PO SCH ×2 (09:21→20:45)
[2017-02-02] MEDS: FOLIC ACID 1 MG TAB PO SCH (09:21)
[2017-02-02] MEDS: oxyCODONE (CR) 10 MG TAB [oxyCONTIN] PO SCH ×2 (09:21→20:45)
[2017-02-02] MEDS: L ACIDOPHIL/B LACTIS/B LONGUM CAPSULE PO SCH ×2 (09:21→20:46)
[2017-02-02] MEDS: PREGABALIN 25 MG CAP PO SCH ×2 (09:21→20:46)
[2017-02-02] MEDS: BUSPIRONE 10 MG TAB PO SCH ×3 (09:21→20:46)
[2017-02-02] MEDS: ZINC SULFATE 220 MG CAP PO SCH (09:22)
[2017-02-02] MEDS: ASPIRIN (EC) 81 MG TAB PO SCH (09:22)
[2017-02-02] MEDS: DULOXETINE 30 MG CAP DR PO SCH (09:22)
[2017-02-02] MEDS: HEPARIN 5,000 UNIT/0.5 ML VIAL SC SCH ×2 (09:28→20:49)
--- NOTE | 2017-02-02 10:23 | PN ---
Date/Time of Note Date/Time of Note DATE: 02/02/17 TIME: 10:22 Assessment/Plan VTE Prophylaxis VTE Prophylaxis Intervention: heparin Lines/Catheters IV Catheter Type (from [facility]): Saline Lock Urinary Cath still in place: No Assessment/Plan Chief Complaint/Hosp Course 1. Sacrococcygeal stage IV decubitus ulcer with necrotic tissue. Infected. Status post debridement. Wound culture positive for E. coli. Status post antimicrobials as per infectious diseases. 2. Bilateral gluteal cellulitis. Local wound care. Status post antimicrobials as per infectious diseases. 3. Urinary tract infection. Urine culture positive for Enterobacter cloacae. Status post antimicrobials as per infectious diseases. 4. Acute nonoliguric kidney injury. Unknown baseline creatinine. Continue to monitor renal function closely. 5. Normocytic, normochromic anemia. Underlying iron deficiency. Continue iron supplements. 6. Benign prostatic hypertrophy. Continue tamsulosin. 7. Debility. Status post physical therapy evaluation. We will reevaluate the patient since the patient has been bedridden for a while. 8. Possible underlying psychiatric disorder. Continue mood stabilizers. 9. Fluids, electrolytes, and nutrition. Regular diet. 10. DVT prophylaxis. Subcutaneous heparin. 11. Gastrointestinal prophylaxis. Histamine 2 receptor blockers. 12. Plan. Continue local wound care. Continue repositioning. Await placement. Case discussed with Dr. Atkins. Problems: Subjective 24 Hr Interval Summary Free Text/Dictation No changes in status. Exam/Review of Systems Vital Signs Vitals Vital Signs Date Time Temp Pulse Resp B/P Pulse Ox O2 Delivery O2 Flow Rate FiO2 02/02/17 07:54 98.3 60 18 145/74 97 Intake and Output 02/01/17 02/01/17 02/02/17 15:00 23:00 07:00 Intake Total 1070 ml 1480 ml Output Total 1400 ml 2000 ml 750 ml Balance -330 ml -520 ml -750 ml Exam General: Adequately build 56 year-old male lying in bed in no apparent distress. HEENT: Normocephalic, atraumatic. Eyes: Anicteric sclerae, conjunctivae clear. ENT: Nasal septum midline, oral mucosa moist. Neck supple, no JVD noticed. Respiratory: Bilaterally diminished breath sounds. No use of accessory muscles of respiration. No adventitious breath sounds. Cardiovascular: S1, S2 heard. No murmurs or gallops. Abdomen: Soft, nontender, and nondistended. Bowel sounds positive in all 4 quadrants. Genitourinary: Deferred. Extremities: No cyanosis, no clubbing, no edema. Peripheral pulses palpable. Neurologic: Cranial nerves II through XII grossly intact. The patient is awake, alert, and oriented. Results Result Diagram: 01/31/17 0505 01/31/17 0505 Medications Medications Current Medications Aripiprazole (Abilify) 5 mg DAILY PO Last administered on 02/02/17 09:20; Admin Dose 5 MG; Start 01/18/17 at 09:00 Aspirin (Halfprin) 81 mg DAILY PO Last administered on 02/02/17 09:22; Admin Dose 81 MG; Start 01/18/17 at 09:00 Buspirone HCl (Buspar) 10 mg TID PO Last administered on 02/02/17 09:21; Admin Dose 10 MG; Start 01/18/17 at 09:00 Clonazepam (Klonopin) 1 mg BID PRN PO ANXIETY Last administered on 02/01/17 20 :22; Admin Dose 1 MG; Start 01/18/17 at 00:30 Duloxetine HCl (Cymbalta) 120 mg DAILY PO Last administered on 02/02/17 09:22 ; Admin Dose 120 MG; Start 01/18/17 at 09:00 Folic Acid (Folic Acid) 1 mg DAILY PO Last administered on 02/02/17 09:21; Admin Dose 1 MG; Start 01/18/17 at 09:00 Pregabalin (Lyrica) 50 mg BID PO Last administered on 02/02/17 09:21; Admin Dose 50 MG; Start 01/18/17 at 09:00 Ropinirole HCl (Requip) 0.25 mg HS PO Last administered on 02/01/17 20:22; Admin Dose 0.25 MG; Start 01/18/17 at 21:00 Tamsulosin HCl (Flomax) 0.4 mg HS PO Last administered on 02/01/17 20:22; Admin Dose 0.4 MG; Start 01/18/17 at 21:00 Atorvastatin Calcium (Lipitor) 5 mg QHS PO Last administered on 02/01/17 20:22 ; Admin Dose 5 MG; Start 01/18/17 at 21:00 Risperidone (Risperdal) 2 mg BID PO Last administered on 02/02/17 09:21; Admin Dose 2 MG; Start 01/18/17 at 00:30 Hydromorphone HCl (Dilaudid) 0.5 mg Q4H PRN IV PAIN Last administered on 16:29; Admin Dose 0.5 MG; Start 01/18/17 at 00:30 Morphine Sulfate (morphine) 4 mg Q4H PRN IV pain Last administered on 19:33; Admin Dose 4 MG; Start 01/18/17 at 14:00 Docusate Sodium (Colace) 250 mg DAILY PO Last administered on 02/02/17 09:20; Admin Dose 250 MG; Start 01/19/17 at 09:00 Oxycodone HCl (Oxycontin) 10 mg BID PO Last administered on 02/02/17 09:21; Admin Dose 10 MG; Start 01/18/17 at 14:23 Zinc Sulfate (Zinc Sulfate) 220 mg DAILY PO Last administered on 02/02/17 09: 22; Admin Dose 220 MG; Start 01/20/17 at 13:00 Polyethylene Glycol (Miralax) 8.5 gm DAILY PO Last administered on 02/01/17 09 :41; Admin Dose 8.5 GM; Start 01/21/17 at 09:00 Zolpidem Tartrate (Ambien) 5 mg HS PRN PO INSOMNIA Last administered on 21:43; Admin Dose 5 MG; Start 01/21/17 at 23:30 Sodium Hypochlorite (Dakin'S (1/4 Strength)) 1 applic DAILY IRR Last administered on 02/02/17 09:20; Admin Dose 1 APPLIC; Start 01/23/17 at 09:00 Collagenase (Santyl) 1 applic DAILY TOP Last administered on 02/02/17 09:20; Admin Dose 1 APPLIC; Start 01/23/17 at 09:00 Lactobacillus Acidophilus (Florajen3 Capsule) 1 each BID PO Last administered on 02/02/17 09:21; Admin Dose 1 EACH; Start 01/24/17 at 21:00 Acetaminophen/ Hydrocodone Bitart ([place] (5/325)) 1 tab Q4H PRN PO PAIN Last administered on 02/02/17 04:09; Admin Dose 1 TAB; Start 01/26/17 at 14:30 Lorazepam 1 mg 1 mg QHS PRN PO INSOMNIA Last administered on 02/01/17 21:37; Admin Dose 1 MG; Start 01/27/17 at 21:30 Ferric Sodium Gluconate Complex/ Sodium Chloride (Ferrlecit/NS) 110 ml @ 110 mls/hr Q24H IVPB Last administered on 02/01/17 12:43; Admin Dose 110 MLS/HR; Start 01/30/17 at 13:30; Stop 02/03/17 at 14:29 Heparin Sodium (Porcine) (Heparin (5000 Units/0.5 ml)) 5,000 unit BID SC Last administered on 02/02/17 09:28; Admin Dose 5,000 UNIT; Start 01/30/17 at 21:00 Famotidine (Pepcid) 20 mg HS PO Last administered on 02/01/17 20:22; Admin Dose 20 MG; Start 01/30/17 at 21:00 Hydralazine HCl (Apresoline) 10 mg Q6H PRN IV SBP greater than 160; Start 01/30 at 12:30 Ondansetron HCl (Zofran Inj) 4 mg Q6H PRN IV NAUSEA AND/OR VOMITING; Start at 18:30 BELEN DIAZ NP Feb 02, 2017 10:23
--- NOTE | 2017-02-02 11:14 | PN ---
Date/Time of Note Date/Time of Note DATE: 02/02/17 TIME: 11:12 Assessment/Plan Lines/Catheters IV Catheter Type (from [facility]): Saline Lock [facility] in Place (from [facility]): No Assessment/Plan Chief Complaint/Hosp Course 1. Sacral wound: s/p debridement 01/22, periwound redness improved, min/mod drainage no odor -local care -frequent turning and repositioning -specialty bed -nutrition optimization -debridement prn 2. Sacral cellulitis: 2/2 above: CT: cellulitis surrounding an ulceration which extends into the subcutaneous fat abutting the dorsal surface of the coccyx without evidence of an associated subcutaneous abscess or osteomyelitis;afebrile ; periwound erythema improving; wound cx: ecoli; s/p debridement &abx -as above 3. Leukocytopenia: likely 2/2 above -supportive -as above 4. Normocytic anemia: no acute bleed noted:s/p PRBC transfusion 01/19; stable -monitor -transfuse as needed 5. Thrombocytopenia 2/2 #2; resolved -bleeding precautions -supportive 6. Hyponatremia: now with hypernatremia;resolved -judicious fluid management 7.ILYA: bilateral hydronephrosis with bilateral renal cyst; cr improved -judicious fluid management avoid nephrotoxic meds -renal dosing for meds 8. Hypocalcemia with hypoalbuminemia: likely 2/2 malnutrition, improved -nutrition optimization -optimize lytes 9. UTI: urine cx: enterobacter cloacae; afebrile; s/p abx 10. Hypomagnesemia; normalized -replete and monitor Patient seen and examined in collaboration with Dr. El Root Problems: Subjective 24 Hr Interval Summary Feeling well. Back pain improved. Min/mod drainage from wound. No c/o gore, dizziness, fainting, chills, cp, palpitations, sob, n/v/d. Awaiting placement. Exam/Review of Systems Vital Signs Vitals Vital Signs Date Time Temp Pulse Resp B/P Pulse Ox O2 Delivery O2 Flow Rate FiO2 02/02/17 07:54 98.3 60 18 145/74 97 Intake and Output 02/01/17 02/01/17 02/02/17 15:00 23:00 07:00 Intake Total 1070 ml 1480 ml Output Total 1400 ml 2000 ml 750 ml Balance -330 ml -520 ml -750 ml Exam Free Text/Dictation Constitutional: alert, oriented Psych: normal mood Head: atraumatic, normocephalic Eyes: PERRL, nl lids, nl sclera ENMT: mucosa pink and moist, nl nasal mucosa & septum Neck: non-tender, supple Respiratory: normal air movement Cardiovascular: nl pulses, regular rate and rhythm Gastrointestinal: non-tender, soft Musculoskeletal: nl extremities to inspection Extremities: normal pulses Neurological: nl speech, nl strength Skin: other (sacral wound with min slough, min drainage, periwound erythema improved, no odor) Lymph: nl lymph nodes Results Result Diagram: 01/31/17 0505 01/31/17 0505 DORINA LITTLEJOHN NP Feb 02, 2017 11:14
[2017-02-02] MEDS: HYDROmorphONE 1 MG/ML SYG IV PRN ×3 (13:03→23:11)
[2017-02-02] MEDS: SOD FERRIC GLUC COMPLX 125 MG in SOD CHLORIDE 0.9% 100 ML IVPB SCH (13:17)
[2017-02-02 14:20] VITALS: BP 139/80; RESP 18
[2017-02-02 19:46] VITALS: BP 124/59; RESP 20
[2017-02-02] MEDS: FAMOTIDINE 20 MG TAB PO SCH (20:45)
[2017-02-02] MEDS: ROPINIROLE 0.25 MG TAB PO SCH (20:45)
[2017-02-02] MEDS: ATORVASTATIN 10 MG TAB PO SCH (20:46)
[2017-02-02] MEDS: TAMSULOSIN (SR) 0.4 MG CAP PO SCH (20:52)
[2017-02-02] MEDS: clonAZEPAM 0.5 MG TAB PO PRN (22:17)
[2017-02-02] MEDS: LORAZEPAM 1 MG TAB PO PRN (23:16)
[2017-02-03 02:00] VITALS: BP 119/79; RESP 20
[2017-02-03 07:26] VITALS: BP 119/79; RESP 18
[2017-02-03] MEDS: ARIPIPRAZOLE 5 MG TAB PO SCH (08:43)
[2017-02-03] MEDS: RISPERIDONE 2 MG TAB PO SCH ×2 (08:43→21:46)
[2017-02-03] MEDS: DOCUSATE SODIUM 250 MG CAP PO SCH (08:43)
[2017-02-03] MEDS: ZINC SULFATE 220 MG CAP PO SCH (08:43)
[2017-02-03] MEDS: BUSPIRONE 10 MG TAB PO SCH ×3 (08:44→21:48)
[2017-02-03] MEDS: ASPIRIN (EC) 81 MG TAB PO SCH (08:44)
[2017-02-03] MEDS: L ACIDOPHIL/B LACTIS/B LONGUM CAPSULE PO SCH ×2 (08:44→21:46)
[2017-02-03] MEDS: DULOXETINE 30 MG CAP DR PO SCH (08:44)
[2017-02-03] MEDS: PREGABALIN 25 MG CAP PO SCH ×2 (08:44→21:47)
[2017-02-03] MEDS: FOLIC ACID 1 MG TAB PO SCH (08:44)
[2017-02-03] MEDS: SODIUM HYPOCHLORITE 0.125% 473 ML BTL IRR SCH (08:45)
[2017-02-03] MEDS: COLLAGENASE 30 GM TUBE TOP SCH (08:45)
[2017-02-03] MEDS: oxyCODONE (CR) 10 MG TAB [oxyCONTIN] PO SCH ×2 (08:45→21:46)
[2017-02-03] MEDS: POLYETHYLENE GLYCOL 17 GM PACKET PO SCH (08:46)
[2017-02-03] MEDS: HEPARIN 5,000 UNIT/0.5 ML VIAL SC SCH ×2 (09:06→21:51)
--- NOTE | 2017-02-03 11:00 | PN ---
Date/Time of Note Date/Time of Note DATE: 02/03/17 TIME: 10:59 Assessment/Plan VTE Prophylaxis VTE Prophylaxis Intervention: heparin Lines/Catheters IV Catheter Type (from [facility]): Saline Lock Urinary Cath still in place: No Assessment/Plan Chief Complaint/Hosp Course 1. Sacrococcygeal stage IV decubitus ulcer with necrotic tissue. Infected. Status post debridement. Wound culture positive for E. coli. Status post antimicrobials as per infectious diseases. 2. Bilateral gluteal cellulitis. Local wound care. Status post antimicrobials as per infectious diseases. 3. Urinary tract infection. Urine culture positive for Enterobacter cloacae. Status post antimicrobials as per infectious diseases. 4. Acute nonoliguric kidney injury. Unknown baseline creatinine. Continue to monitor renal function closely. 5. Normocytic, normochromic anemia. Underlying iron deficiency. Continue iron supplements. 6. Benign prostatic hypertrophy. Continue tamsulosin. 7. Debility. Status post physical therapy evaluation. We will reevaluate the patient since the patient has been bedridden for a while. 8. Possible underlying psychiatric disorder. Continue mood stabilizers. 9. Fluids, electrolytes, and nutrition. Regular diet. 10. DVT prophylaxis. Subcutaneous heparin. 11. Gastrointestinal prophylaxis. Histamine 2 receptor blockers. 12. Plan. Continue local wound care. Continue repositioning. Await placement. Case discussed with Dr. Atkins. Problems: Subjective 24 Hr Interval Summary Free Text/Dictation The patient remains afebrile. Vital signs stable. Exam/Review of Systems Vital Signs Vitals Vital Signs Date Time Temp Pulse Resp B/P Pulse Ox O2 Delivery O2 Flow Rate FiO2 02/03/17 07:26 98.1 81 18 119/79 98 Intake and Output 02/02/17 02/02/17 02/03/17 15:00 23:00 07:00 Intake Total 1200 ml 1600 ml Output Total 700 ml 2750 ml Balance 500 ml -1150 ml Exam General: Adequately build 56 year-old male lying in bed in no apparent distress. HEENT: Normocephalic, atraumatic. Eyes: Anicteric sclerae, conjunctivae clear. ENT: Nasal septum midline, oral mucosa moist. Neck supple, no JVD noticed. Respiratory: Bilaterally diminished breath sounds. No use of accessory muscles of respiration. No adventitious breath sounds. Cardiovascular: S1, S2 heard. No murmurs or gallops. Abdomen: Soft, nontender, and nondistended. Bowel sounds positive in all 4 quadrants. Genitourinary: Deferred. Extremities: No cyanosis, no clubbing, no edema. Peripheral pulses palpable. Neurologic: Cranial nerves II through XII grossly intact. The patient is awake, alert, and oriented. Results Result Diagram: 01/31/17 0505 01/31/17 0505 Medications Medications Current Medications Aripiprazole (Abilify) 5 mg DAILY PO Last administered on 02/03/17 08:43; Admin Dose 5 MG; Start 01/18/17 at 09:00 Aspirin (Halfprin) 81 mg DAILY PO Last administered on 02/03/17 08:44; Admin Dose 81 MG; Start 01/18/17 at 09:00 Buspirone HCl (Buspar) 10 mg TID PO Last administered on 02/03/17 08:44; Admin Dose 10 MG; Start 01/18/17 at 09:00 Clonazepam (Klonopin) 1 mg BID PRN PO ANXIETY Last administered on 02/02/17 22 :17; Admin Dose 1 MG; Start 01/18/17 at 00:30 Duloxetine HCl (Cymbalta) 120 mg DAILY PO Last administered on 02/03/17 08:44 ; Admin Dose 120 MG; Start 01/18/17 at 09:00 Folic Acid (Folic Acid) 1 mg DAILY PO Last administered on 02/03/17 08:44; Admin Dose 1 MG; Start 01/18/17 at 09:00 Pregabalin (Lyrica) 50 mg BID PO Last administered on 02/03/17 08:44; Admin Dose 50 MG; Start 01/18/17 at 09:00 Ropinirole HCl (Requip) 0.25 mg HS PO Last administered on 02/02/17 20:45; Admin Dose 0.25 MG; Start 01/18/17 at 21:00 Tamsulosin HCl (Flomax) 0.4 mg HS PO Last administered on 02/02/17 20:52; Admin Dose 0.4 MG; Start 01/18/17 at 21:00 Atorvastatin Calcium (Lipitor) 5 mg QHS PO Last administered on 02/02/17 20:46 ; Admin Dose 5 MG; Start 01/18/17 at 21:00 Risperidone (Risperdal) 2 mg BID PO Last administered on 02/03/17 08:43; Admin Dose 2 MG; Start 01/18/17 at 00:30 Hydromorphone HCl (Dilaudid) 0.5 mg Q4H PRN IV PAIN Last administered on 23:11; Admin Dose 0.5 MG; Start 01/18/17 at 00:30 Morphine Sulfate (morphine) 4 mg Q4H PRN IV pain Last administered on 19:33; Admin Dose 4 MG; Start 01/18/17 at 14:00 Docusate Sodium (Colace) 250 mg DAILY PO Last administered on 02/03/17 08:43; Admin Dose 250 MG; Start 01/19/17 at 09:00 Oxycodone HCl (Oxycontin) 10 mg BID PO Last administered on 02/03/17 08:45; Admin Dose 10 MG; Start 01/18/17 at 14:23 Zinc Sulfate (Zinc Sulfate) 220 mg DAILY PO Last administered on 02/03/17 08: 43; Admin Dose 220 MG; Start 01/20/17 at 13:00 Polyethylene Glycol (Miralax) 8.5 gm DAILY PO Last administered on 02/01/17 09 :41; Admin Dose 8.5 GM; Start 01/21/17 at 09:00 Zolpidem Tartrate (Ambien) 5 mg HS PRN PO INSOMNIA Last administered on 21:43; Admin Dose 5 MG; Start 01/21/17 at 23:30 Sodium Hypochlorite (Dakin'S (1/4 Strength)) 1 applic DAILY IRR Last administered on 02/03/17 08:45; Admin Dose 1 APPLIC; Start 01/23/17 at 09:00 Collagenase (Santyl) 1 applic DAILY TOP Last administered on 02/03/17 08:45; Admin Dose 1 APPLIC; Start 01/23/17 at 09:00 Lactobacillus Acidophilus (Florajen3 Capsule) 1 each BID PO Last administered on 02/03/17 08:44; Admin Dose 1 EACH; Start 01/24/17 at 21:00 Acetaminophen/ Hydrocodone Bitart ([place] (5/325)) 1 tab Q4H PRN PO PAIN Last administered on 02/02/17 20:00; Admin Dose 1 TAB; Start 01/26/17 at 14:30 Lorazepam 1 mg 1 mg QHS PRN PO INSOMNIA Last administered on 02/02/17 23:16; Admin Dose 1 MG; Start 01/27/17 at 21:30 Ferric Sodium Gluconate Complex/ Sodium Chloride (Ferrlecit/NS) 110 ml @ 110 mls/hr Q24H IVPB Last administered on 02/02/17 13:17; Admin Dose 110 MLS/HR; Start 01/30/17 at 13:30; Stop 02/03/17 at 14:29 Heparin Sodium (Porcine) (Heparin (5000 Units/0.5 ml)) 5,000 unit BID SC Last administered on 02/03/17 09:06; Admin Dose 5,000 UNIT; Start 01/30/17 at 21:00 Famotidine (Pepcid) 20 mg HS PO Last administered on 02/02/17 20:45; Admin Dose 20 MG; Start 01/30/17 at 21:00 Hydralazine HCl (Apresoline) 10 mg Q6H PRN IV SBP greater than 160; Start 01/30 at 12:30 Ondansetron HCl (Zofran Inj) 4 mg Q6H PRN IV NAUSEA AND/OR VOMITING; Start at 18:30 BELEN DIAZ NP Feb 03, 2017 11:00
[2017-02-03] MEDS: HYDROmorphONE 1 MG/ML SYG IV PRN ×3 (11:02→20:22)
--- NOTE | 2017-02-03 11:22 | PN ---
Date/Time of Note Date/Time of Note DATE: 02/03/17 TIME: 11:18 Assessment/Plan Lines/Catheters IV Catheter Type (from [facility]): Saline Lock [facility] in Place (from [facility]): No Assessment/Plan Chief Complaint/Hosp Course 1. Sacral wound: s/p debridement 01/22, periwound redness improved, min/mod drainage no odor -local care -frequent turning and repositioning -specialty bed -nutrition optimization -debridement prn 2. Sacral cellulitis: 2/2 above: CT: cellulitis surrounding an ulceration which extends into the subcutaneous fat abutting the dorsal surface of the coccyx without evidence of an associated subcutaneous abscess or osteomyelitis;afebrile ; periwound erythema improving; wound cx: ecoli; s/p debridement &abx 3. Leukocytopenia: likely 2/2 above -supportive -as above 4. Normocytic anemia: no acute bleed noted:s/p PRBC transfusion 01/19; stable -monitor -transfuse as needed 5. Thrombocytopenia 2/2 #2; resolved -bleeding precautions -supportive 6. Hyponatremia: now with hypernatremia;resolved -judicious fluid management 7.ILYA: bilateral hydronephrosis with bilateral renal cyst; cr improved -judicious fluid management avoid nephrotoxic meds -renal dosing for meds 8. Hypocalcemia with hypoalbuminemia: likely 2/2 malnutrition, improved -nutrition optimization -optimize lytes 9. UTI: urine cx: enterobacter cloacae; afebrile; s/p abx 10. Hypomagnesemia; normalized -replete and monitor Patient seen and examined in collaboration with Dr. El Root Problems: Subjective 24 Hr Interval Summary Feeling well. Min back pain. ambulating in hallway. Min/mod drainage from wound. No c/o gore, dizziness, fainting, chills, cp, palpitations, sob, n/v/d. Awaiting placement. Exam/Review of Systems Vital Signs Vitals Vital Signs Date Time Temp Pulse Resp B/P Pulse Ox O2 Delivery O2 Flow Rate FiO2 02/03/17 07:26 98.1 81 18 119/79 98 Intake and Output 02/02/17 02/02/17 02/03/17 15:00 23:00 07:00 Intake Total 1200 ml 1600 ml Output Total 700 ml 2750 ml Balance 500 ml -1150 ml Exam Free Text/Dictation Constitutional: alert, oriented Psych: normal mood Head: atraumatic, normocephalic Eyes: PERRL, nl lids, nl sclera ENMT: mucosa pink and moist, nl nasal mucosa & septum Neck: non-tender, supple Respiratory: normal air movement Cardiovascular: nl pulses, regular rate and rhythm Gastrointestinal: non-tender, soft Musculoskeletal: nl extremities to inspection Extremities: normal pulses Neurological: nl speech, nl strength Skin: other (sacral wound with min slough, min drainage, periwound erythema improved, no odor) Lymph: nl lymph nodes Results Result Diagram: 01/31/17 0505 01/31/17 0505 DORINA LITTLEJOHN NP Feb 03, 2017 11:22
[2017-02-03 14:12] VITALS: BP 119/67; RESP 18
[2017-02-03] MEDS: HYDROCODONE/APAP (5/325) TAB PO PRN (14:52)
[2017-02-03] MEDS: SOD FERRIC GLUC COMPLX 125 MG in SOD CHLORIDE 0.9% 100 ML IVPB SCH (14:52)
[2017-02-03] MEDS: clonAZEPAM 0.5 MG TAB PO PRN ×2 (14:52→21:46)
[2017-02-03] MEDS: TAMSULOSIN (SR) 0.4 MG CAP PO SCH (21:45)
[2017-02-03] MEDS: ROPINIROLE 0.25 MG TAB PO SCH (21:46)
[2017-02-03] MEDS: FAMOTIDINE 20 MG TAB PO SCH (21:46)
[2017-02-03] MEDS: ATORVASTATIN 10 MG TAB PO SCH (21:47)
[2017-02-03] MEDS: LORAZEPAM 1 MG TAB PO PRN (22:01)
[2017-02-04] MEDS: HYDROmorphONE 1 MG/ML SYG IV PRN ×4 (01:49→21:51)
[2017-02-04 02:00] VITALS: BP 124/71; RESP 20
[2017-02-04] MEDS: HYDROCODONE/APAP (5/325) TAB PO PRN ×3 (03:35→18:09)
[2017-02-04 07:39] VITALS: BP 125/71; RESP 18
[2017-02-04] MEDS: POLYETHYLENE GLYCOL 17 GM PACKET PO SCH (09:00)
--- NOTE | 2017-02-04 09:01 | PN ---
Date/Time of Note Date/Time of Note DATE: 02/04/17 TIME: 09:00 Assessment/Plan VTE Prophylaxis VTE Prophylaxis Intervention: heparin Lines/Catheters IV Catheter Type (from [facility]): Saline Lock Urinary Cath still in place: No Assessment/Plan Chief Complaint/Hosp Course 1. Sacrococcygeal stage IV decubitus ulcer with necrotic tissue. Infected. Status post debridement. Wound culture positive for E. coli. Status post antimicrobials as per infectious diseases. 2. Bilateral gluteal cellulitis. Local wound care. Status post antimicrobials as per infectious diseases. 3. Urinary tract infection. Urine culture positive for Enterobacter cloacae. Status post antimicrobials as per infectious diseases. 4. Acute nonoliguric kidney injury. Unknown baseline creatinine. Continue to monitor renal function closely. 5. Normocytic, normochromic anemia. Underlying iron deficiency. Continue iron supplements. 6. Benign prostatic hypertrophy. Continue tamsulosin. 7. Debility. Status post physical therapy evaluation. We will reevaluate the patient since the patient has been bedridden for a while. 8. Possible underlying psychiatric disorder. Continue mood stabilizers. 9. Fluids, electrolytes, and nutrition. Regular diet. 10. DVT prophylaxis. Subcutaneous heparin. 11. Gastrointestinal prophylaxis. Histamine 2 receptor blockers. 12. Plan. Continue local wound care. Continue repositioning. Await placement. Case discussed with Dr. Atkins. Problems: Subjective 24 Hr Interval Summary Free Text/Dictation The patient remains afebrile. Exam/Review of Systems Vital Signs Vitals Vital Signs Date Time Temp Pulse Resp B/P Pulse Ox O2 Delivery O2 Flow Rate FiO2 02/04/17 07:39 98.7 68 18 125/71 96 Intake and Output 02/03/17 02/03/17 02/04/17 15:00 23:00 07:00 Intake Total 1040 ml 1550 ml Output Total 1675 ml 1200 ml Balance -635 ml 350 ml Exam General: Adequately build 56 year-old male lying in bed in no apparent distress. HEENT: Normocephalic, atraumatic. Eyes: Anicteric sclerae, conjunctivae clear. ENT: Nasal septum midline, oral mucosa moist. Neck supple, no JVD noticed. Respiratory: Bilaterally diminished breath sounds. No use of accessory muscles of respiration. No adventitious breath sounds. Cardiovascular: S1, S2 heard. No murmurs or gallops. Abdomen: Soft, nontender, and nondistended. Bowel sounds positive in all 4 quadrants. Genitourinary: Deferred. Extremities: No cyanosis, no clubbing, no edema. Peripheral pulses palpable. Neurologic: Cranial nerves II through XII grossly intact. The patient is awake, alert, and oriented. Results Result Diagram: 01/31/17 0505 01/31/17 0505 Medications Medications Current Medications Aripiprazole (Abilify) 5 mg DAILY PO Last administered on 02/03/17 08:43; Admin Dose 5 MG; Start 01/18/17 at 09:00 Aspirin (Halfprin) 81 mg DAILY PO Last administered on 02/03/17 08:44; Admin Dose 81 MG; Start 01/18/17 at 09:00 Buspirone HCl (Buspar) 10 mg TID PO Last administered on 02/03/17 21:48; Admin Dose 10 MG; Start 01/18/17 at 09:00 Clonazepam (Klonopin) 1 mg BID PRN PO ANXIETY Last administered on 02/03/17 21 :46; Admin Dose 1 MG; Start 01/18/17 at 00:30 Duloxetine HCl (Cymbalta) 120 mg DAILY PO Last administered on 02/03/17 08:44 ; Admin Dose 120 MG; Start 01/18/17 at 09:00 Folic Acid (Folic Acid) 1 mg DAILY PO Last administered on 02/03/17 08:44; Admin Dose 1 MG; Start 01/18/17 at 09:00 Pregabalin (Lyrica) 50 mg BID PO Last administered on 02/03/17 21:47; Admin Dose 50 MG; Start 01/18/17 at 09:00 Ropinirole HCl (Requip) 0.25 mg HS PO Last administered on 02/03/17 21:46; Admin Dose 0.25 MG; Start 01/18/17 at 21:00 Tamsulosin HCl (Flomax) 0.4 mg HS PO Last administered on 02/03/17 21:45; Admin Dose 0.4 MG; Start 01/18/17 at 21:00 Atorvastatin Calcium (Lipitor) 5 mg QHS PO Last administered on 02/03/17 21:47 ; Admin Dose 5 MG; Start 01/18/17 at 21:00 Risperidone (Risperdal) 2 mg BID PO Last administered on 02/03/17 21:46; Admin Dose 2 MG; Start 01/18/17 at 00:30 Hydromorphone HCl (Dilaudid) 0.5 mg Q4H PRN IV PAIN Last administered on 01:49; Admin Dose 0.5 MG; Start 01/18/17 at 00:30 Morphine Sulfate (morphine) 4 mg Q4H PRN IV pain Last administered on 19:33; Admin Dose 4 MG; Start 01/18/17 at 14:00 Docusate Sodium (Colace) 250 mg DAILY PO Last administered on 02/03/17 08:43; Admin Dose 250 MG; Start 01/19/17 at 09:00 Oxycodone HCl (Oxycontin) 10 mg BID PO Last administered on 02/03/17 21:46; Admin Dose 10 MG; Start 01/18/17 at 14:23 Zinc Sulfate (Zinc Sulfate) 220 mg DAILY PO Last administered on 02/03/17 08: 43; Admin Dose 220 MG; Start 01/20/17 at 13:00 Polyethylene Glycol (Miralax) 8.5 gm DAILY PO Last administered on 02/01/17 09 :41; Admin Dose 8.5 GM; Start 01/21/17 at 09:00 Zolpidem Tartrate (Ambien) 5 mg HS PRN PO INSOMNIA Last administered on 21:43; Admin Dose 5 MG; Start 01/21/17 at 23:30 Sodium Hypochlorite (Dakin'S (1/4 Strength)) 1 applic DAILY IRR Last administered on 02/03/17 08:45; Admin Dose 1 APPLIC; Start 01/23/17 at 09:00 Collagenase (Santyl) 1 applic DAILY TOP Last administered on 02/03/17 08:45; Admin Dose 1 APPLIC; Start 01/23/17 at 09:00 Lactobacillus Acidophilus (Florajen3 Capsule) 1 each BID PO Last administered on 02/03/17 21:46; Admin Dose 1 EACH; Start 01/24/17 at 21:00 Acetaminophen/ Hydrocodone Bitart ([place] (5/325)) 1 tab Q4H PRN PO PAIN Last administered on 02/04/17 03:35; Admin Dose 1 TAB; Start 01/26/17 at 14:30 Lorazepam (Ativan) 1 mg QHS PRN PO INSOMNIA Last administered on 02/03/17 22: 01; Admin Dose 1 MG; Start 01/27/17 at 21:30 Heparin Sodium (Porcine) (Heparin (5000 Units/0.5 ml)) 5,000 unit BID SC Last administered on 02/03/17 21:51; Admin Dose 5,000 UNIT; Start 01/30/17 at 21:00 Famotidine (Pepcid) 20 mg HS PO Last administered on 02/03/17 21:46; Admin Dose 20 MG; Start 01/30/17 at 21:00 Hydralazine HCl (Apresoline) 10 mg Q6H PRN IV SBP greater than 160; Start 01/30 at 12:30 Ondansetron HCl (Zofran Inj) 4 mg Q6H PRN IV NAUSEA AND/OR VOMITING; Start at 18:30 BELEN DIAZ NP Feb 04, 2017 09:01
[2017-02-04] MEDS: oxyCODONE (CR) 10 MG TAB [oxyCONTIN] PO SCH ×2 (09:29→21:18)
[2017-02-04] MEDS: RISPERIDONE 2 MG TAB PO SCH ×2 (09:29→21:18)
[2017-02-04] MEDS: L ACIDOPHIL/B LACTIS/B LONGUM CAPSULE PO SCH ×2 (09:29→21:50)
[2017-02-04] MEDS: BUSPIRONE 10 MG TAB PO SCH ×3 (09:29→21:17)
[2017-02-04] MEDS: ASPIRIN (EC) 81 MG TAB PO SCH (09:29)
[2017-02-04] MEDS: ARIPIPRAZOLE 5 MG TAB PO SCH (09:29)
[2017-02-04] MEDS: ZINC SULFATE 220 MG CAP PO SCH (09:29)
[2017-02-04] MEDS: FOLIC ACID 1 MG TAB PO SCH (09:29)
[2017-02-04] MEDS: PREGABALIN 25 MG CAP PO SCH ×2 (09:29→21:17)
[2017-02-04] MEDS: DULOXETINE 30 MG CAP DR PO SCH (09:29)
[2017-02-04] MEDS: DOCUSATE SODIUM 250 MG CAP PO SCH (09:30)
[2017-02-04] MEDS: SODIUM HYPOCHLORITE 0.125% 473 ML BTL IRR SCH (09:30)
[2017-02-04] MEDS: COLLAGENASE 30 GM TUBE TOP SCH (09:31)
[2017-02-04] MEDS: HEPARIN 5,000 UNIT/0.5 ML VIAL SC SCH ×2 (09:35→21:21)
--- NOTE | 2017-02-04 10:18 | PN ---
Date/Time of Note Date/Time of Note DATE: 02/04/17 TIME: 10:14 Assessment/Plan Lines/Catheters IV Catheter Type (from [facility]): Saline Lock Chambers in Place (from [facility]): No Assessment/Plan Chief Complaint/Hosp Course 1. Sacral wound: s/p debridement 01/22, periwound redness improved, min/mod drainage no odor -local care -frequent turning and repositioning -specialty bed -nutrition optimization -debridement prn 2. Sacral cellulitis: 2/2 above: CT: cellulitis surrounding an ulceration which extends into the subcutaneous fat abutting the dorsal surface of the coccyx without evidence of an associated subcutaneous abscess or osteomyelitis;afebrile ; periwound erythema improving; wound cx: ecoli; s/p debridement &abx 3. Leukocytopenia: likely 2/2 above -supportive -as above 4. Normocytic anemia: no acute bleed noted:s/p PRBC transfusion 01/19; stable -monitor -transfuse as needed 5. Thrombocytopenia 2/2 #2; resolved -bleeding precautions -supportive 6. Hyponatremia: now with hypernatremia;resolved -judicious fluid management 7.ILYA: bilateral hydronephrosis with bilateral renal cyst; cr improved -avoid nephrotoxic meds -renal dosing for meds 8. Hypocalcemia with hypoalbuminemia: likely 2/2 malnutrition, improved -nutrition optimization -optimize lytes 9. UTI: urine cx: enterobacter cloacae; afebrile; s/p abx 10. Hypomagnesemia; normalized -replete and monitor Patient seen and examined in collaboration with Dr. El Root Problems: Subjective 24 Hr Interval Summary Intermittent back pain; improved with meds. Scant drainage from wound. No fevers , chills, gore, dizziness, palpitations, cp, sob, cough, n/v/d, dysuria. + bowel function. Awaiting placement Exam/Review of Systems Vital Signs Vitals Vital Signs Date Time Temp Pulse Resp B/P Pulse Ox O2 Delivery O2 Flow Rate FiO2 02/04/17 07:39 98.7 68 18 125/71 96 Intake and Output 02/03/17 02/03/17 02/04/17 15:00 23:00 07:00 Intake Total 1040 ml 1550 ml Output Total 1675 ml 1200 ml Balance -635 ml 350 ml Exam Free Text/Dictation Constitutional: alert, oriented Psych: normal mood Head: atraumatic, normocephalic Eyes: PERRL, nl lids, nl sclera ENMT: mucosa pink and moist, nl nasal mucosa & septum Neck: non-tender, supple Respiratory: normal air movement Cardiovascular: nl pulses, regular rate and rhythm Gastrointestinal: non-tender, soft Musculoskeletal: nl extremities to inspection Extremities: normal pulses Neurological: nl speech, nl strength Skin: other (sacral wound with min slough, min drainage, periwound erythema improved, no odor) Lymph: nl lymph nodes Results Result Diagram: 01/31/17 0505 01/31/17 0505 DORINA LITTLEJOHN NP Feb 04, 2017 10:18
[2017-02-04 13:28] VITALS: BP 98/66; RESP 20
[2017-02-04 20:00] VITALS: BP 121/64; RESP 18
[2017-02-04] MEDS: ATORVASTATIN 10 MG TAB PO SCH (21:17)
[2017-02-04] MEDS: TAMSULOSIN (SR) 0.4 MG CAP PO SCH (21:17)
[2017-02-04] MEDS: clonAZEPAM 0.5 MG TAB PO PRN (21:17)
[2017-02-04] MEDS: ROPINIROLE 0.25 MG TAB PO SCH (21:18)
[2017-02-04] MEDS: FAMOTIDINE 20 MG TAB PO SCH (21:18)
[2017-02-04] MEDS: LORAZEPAM 1 MG TAB PO PRN (21:50)
[2017-02-05 03:18] VITALS: BP 130/79; RESP 18
[2017-02-05] MEDS: HYDROCODONE/APAP (5/325) TAB PO PRN ×3 (05:24→15:58)
[2017-02-05 05:57] LABS: BASOPHILS % 0.5 % (0.0-2.0); EOSINOPHILS # 0.1 10^3/ul (0.0-0.5); HEMATOCRIT 35.4 % (42.0-52.0); HEMOGLOBIN 11.3 g/dl (14.0-18.0); LYMPHOCYTES # 0.9 10^3/ul (0.8-2.9); LYMPHOCYTES % 15.3 % (15.0-51.0); MEAN CORPUSCULAR HGB CONC 31.9 g/dl (32.0-37.0); MEAN PLATELET VOLUME 10.6 fl (7.4-10.4); MONOCYTE # 0.4 10^3/ul (0.3-0.9); MONOCYTES % 6.5 % (0.0-11.0); NEUTROPHIL # 4.4 10^3/ul (1.6-7.5); NEUTROPHILS % 75.5 % (39.0-77.0); PLATELET COUNT 111 10^3/UL (140-415); RED BLOOD COUNT 3.65 10^6/ul (4.70-6.10); RED CELL DISTRIBUTION WIDTH 14.4 % (11.5-14.5); WHITE BLOOD COUNT 5.9 10^3/ul (4.8-10.8)
[2017-02-05 05:58] LABS: MAGNESIUM 1.7 mg/dl (1.7-2.5); PHOSPHORUS 4.1 mg/dl (2.5-4.9)
[2017-02-05 06:22] LABS: CALCIUM 8.8 mg/dl (8.4-10.2); CREATININE 1.72 mg/dl (0.61-1.24); POTASSIUM 4.5 mmol/L (3.5-5.1)
[2017-02-05 08:00] VITALS: BP 157/86; RESP 20
[2017-02-05] MEDS: HEPARIN 5,000 UNIT/0.5 ML VIAL SC SCH ×2 (09:00→21:27)
[2017-02-05] MEDS: POLYETHYLENE GLYCOL 17 GM PACKET PO SCH (09:00)
[2017-02-05] MEDS: DOCUSATE SODIUM 250 MG CAP PO SCH (09:00)
[2017-02-05] MEDS: DULOXETINE 30 MG CAP DR PO SCH (09:34)
[2017-02-05] MEDS: ZINC SULFATE 220 MG CAP PO SCH (09:34)
[2017-02-05] MEDS: ASPIRIN (EC) 81 MG TAB PO SCH (09:34)
[2017-02-05] MEDS: BUSPIRONE 10 MG TAB PO SCH ×3 (09:34→21:10)
[2017-02-05] MEDS: FOLIC ACID 1 MG TAB PO SCH (09:34)
[2017-02-05] MEDS: RISPERIDONE 2 MG TAB PO SCH ×2 (09:34→21:12)
[2017-02-05] MEDS: oxyCODONE (CR) 10 MG TAB [oxyCONTIN] PO SCH ×2 (09:34→21:12)
[2017-02-05] MEDS: L ACIDOPHIL/B LACTIS/B LONGUM CAPSULE PO SCH ×2 (09:34→22:30)
[2017-02-05] MEDS: ARIPIPRAZOLE 5 MG TAB PO SCH (09:34)
[2017-02-05] MEDS: PREGABALIN 25 MG CAP PO SCH ×2 (09:35→21:11)
[2017-02-05] MEDS: COLLAGENASE 30 GM TUBE TOP SCH (09:37)
[2017-02-05] MEDS: SODIUM HYPOCHLORITE 0.125% 473 ML BTL IRR SCH (09:37)
[2017-02-05] MEDS: HYDROmorphONE 1 MG/ML SYG IV PRN ×4 (09:48→22:14)
[2017-02-05] MEDS: clonAZEPAM 0.5 MG TAB PO PRN ×2 (12:56→21:38)
--- NOTE | 2017-02-05 14:57 | PN ---
Date/Time of Note Date/Time of Note DATE: 02/05/17 TIME: 14:38 Assessment/Plan VTE Prophylaxis VTE Prophylaxis Intervention: heparin Lines/Catheters IV Catheter Type (from [facility]): Saline Lock Urinary Cath still in place: No Assessment/Plan Chief Complaint/Hosp Course Assessment and Plan: 1. Sacrococcygeal stage 4 decubitus ulcer with necrotic tissue. patient status post debridement. wound with e.coli. cont on antibitotics. 2. Bilateral gluetal cellulitis. cont on antibiotics 3. UTI with enterobacter cloacae. on abx 4. ILYA. monitor renal panel 5. BPH. continue on tamsulosin. 6. Debility. Continue with physical therapy DISPO/PLAN: continue with wound care. Awaiting placement Discussed plan of care with Dr. Atkins Problems: Subjective 24 Hr Interval Summary Free Text/Dictation reports good pain control at this time. no other specific complaints Exam/Review of Systems Vital Signs Vitals Vital Signs Date Time Temp Pulse Resp B/P Pulse Ox O2 Delivery O2 Flow Rate FiO2 02/05/17 08:00 97.7 93 20 157/86 97 Intake and Output 02/04/17 02/04/17 02/05/17 15:00 23:00 07:00 Intake Total 480 ml 2000 ml 1300 ml Output Total 1800 ml 1700 ml 1600 ml Balance -1320 ml 300 ml -300 ml Exam Constitutional: alert, oriented Head: normocephalic Eyes: nl conjunctiva Neck: supple Respiratory: clear to auscultation Cardiovascular: regular rate and rhythm Gastrointestinal: non-tender, soft Musculoskeletal: nl extremities to inspection Neurological: nl mental status, nl speech Skin: other (decubitus ulcer ) Results Result Diagram: 02/05/17 0526 02/05/17 0527 Results 24 hrs Laboratory Tests Test 02/05/17 05:26 02/05/17 05:27 White Blood Count 5.9 # Red Blood Count 3.65 L Hemoglobin 11.3 L Hematocrit 35.4 L Mean Corpuscular Volume 97.0 Mean Corpuscular Hemoglobin 31.0 Mean Corpuscular Hemoglobin Concent 31.9 L Red Cell Distribution Width 14.4 Platelet Count 111 L Mean Platelet Volume 10.6 H Neutrophils % 75.5 Lymphocytes % 15.3 Monocytes % 6.5 Eosinophils % 2.0 Basophils % 0.5 Nucleated Red Blood Cells % 0.0 Neutrophils # 4.4 Lymphocytes # 0.9 Monocytes # 0.4 Eosinophils # 0.1 Basophils # 0.0 Nucleated Red Blood Cells # 0.0 Phosphorus Level 4.1 Magnesium Level 1.7 Sodium Level 143 Potassium Level 4.5 Chloride Level 106 Carbon Dioxide Level 23 Anion Gap 19 H Blood Urea Nitrogen 25 H Creatinine 1.72 H Glucose Level 99 Calcium Level 8.8 Medications Medications Current Medications Aripiprazole (Abilify) 5 mg DAILY PO Last administered on 02/05/17 09:34; Admin Dose 5 MG; Start 01/18/17 at 09:00 Aspirin (Halfprin) 81 mg DAILY PO Last administered on 02/05/17 09:34; Admin Dose 81 MG; Start 01/18/17 at 09:00 Buspirone HCl (Buspar) 10 mg TID PO Last administered on 02/05/17 12:58; Admin Dose 10 MG; Start 01/18/17 at 09:00 Clonazepam (Klonopin) 1 mg BID PRN PO ANXIETY Last administered on 02/05/17 12 :56; Admin Dose 1 MG; Start 01/18/17 at 00:30 Duloxetine HCl (Cymbalta) 120 mg DAILY PO Last administered on 02/05/17 09:34 ; Admin Dose 120 MG; Start 01/18/17 at 09:00 Folic Acid (Folic Acid) 1 mg DAILY PO Last administered on 02/05/17 09:34; Admin Dose 1 MG; Start 01/18/17 at 09:00 Pregabalin (Lyrica) 50 mg BID PO Last administered on 02/05/17 09:35; Admin Dose 50 MG; Start 01/18/17 at 09:00 Ropinirole HCl (Requip) 0.25 mg HS PO Last administered on 02/04/17 21:18; Admin Dose 0.25 MG; Start 01/18/17 at 21:00 Tamsulosin HCl (Flomax) 0.4 mg HS PO Last administered on 02/04/17 21:17; Admin Dose 0.4 MG; Start 01/18/17 at 21:00 Atorvastatin Calcium (Lipitor) 5 mg QHS PO Last administered on 02/04/17 21:17 ; Admin Dose 5 MG; Start 01/18/17 at 21:00 Risperidone (Risperdal) 2 mg BID PO Last administered on 02/05/17 09:34; Admin Dose 2 MG; Start 01/18/17 at 00:30 Hydromorphone HCl (Dilaudid) 0.5 mg Q4H PRN IV PAIN Last administered on 13:59; Admin Dose 0.5 MG; Start 01/18/17 at 00:30 Morphine Sulfate (morphine) 4 mg Q4H PRN IV pain Last administered on 19:33; Admin Dose 4 MG; Start 01/18/17 at 14:00 Docusate Sodium (Colace) 250 mg DAILY PO Last administered on 02/04/17 09:30; Admin Dose 250 MG; Start 01/19/17 at 09:00 Oxycodone HCl (Oxycontin) 10 mg BID PO Last administered on 02/05/17 09:34; Admin Dose 10 MG; Start 01/18/17 at 14:23 Zinc Sulfate (Zinc Sulfate) 220 mg DAILY PO Last administered on 02/05/17 09: 34; Admin Dose 220 MG; Start 01/20/17 at 13:00 Polyethylene Glycol (Miralax) 8.5 gm DAILY PO Last administered on 02/01/17 09 :41; Admin Dose 8.5 GM; Start 01/21/17 at 09:00 Zolpidem Tartrate (Ambien) 5 mg HS PRN PO INSOMNIA Last administered on 21:43; Admin Dose 5 MG; Start 01/21/17 at 23:30 Sodium Hypochlorite (Dakin'S (1/4 Strength)) 1 applic DAILY IRR Last administered on 02/05/17 09:37; Admin Dose 1 APPLIC; Start 01/23/17 at 09:00 Collagenase (Santyl) 1 applic DAILY TOP Last administered on 02/05/17 09:37; Admin Dose 1 APPLIC; Start 01/23/17 at 09:00 Lactobacillus Acidophilus (Florajen3 Capsule) 1 each BID PO Last administered on 02/05/17 09:34; Admin Dose 1 EACH; Start 01/24/17 at 21:00 Acetaminophen/ Hydrocodone Bitart ([place] (5/325)) 1 tab Q4H PRN PO PAIN Last administered on 02/05/17 11:36; Admin Dose 1 TAB; Start 01/26/17 at 14:30 Lorazepam (Ativan) 1 mg QHS PRN PO INSOMNIA Last administered on 02/04/17 21: 50; Admin Dose 1 MG; Start 01/27/17 at 21:30 Heparin Sodium (Porcine) (Heparin (5000 Units/0.5 ml)) 5,000 unit BID SC Last administered on 02/04/17 21:21; Admin Dose 5,000 UNIT; Start 01/30/17 at 21:00 Famotidine (Pepcid) 20 mg HS PO Last administered on 02/04/17 21:18; Admin Dose 20 MG; Start 01/30/17 at 21:00 Hydralazine HCl (Apresoline) 10 mg Q6H PRN IV SBP greater than 160; Start 01/30 at 12:30 Ondansetron HCl (Zofran Inj) 4 mg Q6H PRN IV NAUSEA AND/OR VOMITING; Start at 18:30 ELIZABET PASTRANA Feb 05, 2017 14:51
--- NOTE | 2017-02-05 15:32 | PN ---
Date/Time of Note Date/Time of Note DATE: 02/05/17 TIME: 15:30 Assessment/Plan Lines/Catheters IV Catheter Type (from [facility]): Saline Lock Chambers in Place (from [facility]): No Assessment/Plan Chief Complaint/Hosp Course 1. Sacral wound & ? infection s/p abx & debridement 01/22, periwound redness improved, min/mod drainage no odor -local care -frequent turning and repositioning -specialty bed -nutrition optimization -debridement prn 2. Normocytic anemia: no acute bleed noted:s/p PRBC transfusion 01/19; stable -monitor -transfuse as needed 3. ILYA: bilateral hydronephrosis with bilateral renal cyst; cr improved -avoid nephrotoxic meds -renal dosing for meds 4. UTI: urine cx: enterobacter cloacae; afebrile; s/p abx 5. Thrombocytopenia 2/2 #2; resolved -bleeding precautions -supportive Thank you, Problems: Subjective 24 Hr Interval Summary Intermittent back pain; improved with meds. Scant drainage from wound. No fevers , chills, gore, dizziness, palpitations, cp, sob, cough, n/v/d, dysuria. Bowel function. Awaiting placement Exam/Review of Systems Vital Signs Vitals Vital Signs Date Time Temp Pulse Resp B/P Pulse Ox O2 Delivery O2 Flow Rate FiO2 02/05/17 08:00 97.7 93 20 157/86 97 Intake and Output 02/04/17 02/04/17 02/05/17 15:00 23:00 07:00 Intake Total 480 ml 2000 ml 1300 ml Output Total 1800 ml 1700 ml 1600 ml Balance -1320 ml 300 ml -300 ml Exam Free Text/Dictation Constitutional: alert, oriented Psych: normal mood Head: atraumatic, normocephalic Eyes: PERRL, nl lids, nl sclera ENMT: mucosa pink and moist, nl nasal mucosa & septum Neck: non-tender, supple Respiratory: normal air movement Cardiovascular: nl pulses, regular rate and rhythm Gastrointestinal: non-tender, soft Musculoskeletal: nl extremities to inspection Extremities: normal pulses Neurological: nl speech, nl strength Skin: sacral wound with min slough, min drainage, periwound erythema improved, no odor Lymph: nl lymph nodes Results Result Diagram: 02/05/1752502/05/17526 SAVANNAH ELIZABETH MD 30, 2017 15:32 Exam/Review of Systems Vital Signs Vitals Vital Signs Date Time Temp Pulse Resp B/P Pulse Ox O2 Delivery O2 Flow Rate FiO2 02/05/17 08:00 97.7 93 20 157/86 97 Intake and Output 02/04/17 02/04/17 02/05/17 15:00 23:00 07:00 Intake Total 480 ml 2000 ml 1300 ml Output Total 1800 ml 1700 ml 1600 ml Balance -1320 ml 300 ml -300 ml Results Result Diagram: 02/05/17 0526 02/05/17 0527 SAVANNAH ELIZABETH MD Feb 05, 2017 15:32
[2017-02-05 20:16] VITALS: BP 114/62; RESP 20
[2017-02-05] MEDS: TAMSULOSIN (SR) 0.4 MG CAP PO SCH (21:10)
[2017-02-05] MEDS: ATORVASTATIN 10 MG TAB PO SCH (21:11)
[2017-02-05] MEDS: FAMOTIDINE 20 MG TAB PO SCH (21:12)
[2017-02-05] MEDS: ROPINIROLE 0.25 MG TAB PO SCH (21:12)
[2017-02-05] MEDS: LORAZEPAM 1 MG TAB PO PRN (22:30)
[2017-02-06] MEDS: HYDROmorphONE 1 MG/ML SYG IV PRN ×5 (02:29→20:31)
[2017-02-06 02:51] VITALS: BP 128/70; RESP 20
[2017-02-06 07:53] VITALS: BP 172/91; RESP 20
[2017-02-06] MEDS: POLYETHYLENE GLYCOL 17 GM PACKET PO SCH (09:00)
[2017-02-06] MEDS: DOCUSATE SODIUM 250 MG CAP PO SCH (09:00)
[2017-02-06] MEDS: DULOXETINE 30 MG CAP DR PO SCH (09:11)
[2017-02-06] MEDS: ZINC SULFATE 220 MG CAP PO SCH (09:11)
[2017-02-06] MEDS: ARIPIPRAZOLE 5 MG TAB PO SCH (09:11)
[2017-02-06] MEDS: BUSPIRONE 10 MG TAB PO SCH ×3 (09:11→21:36)
[2017-02-06] MEDS: PREGABALIN 25 MG CAP PO SCH ×2 (09:11→21:00)
[2017-02-06] MEDS: L ACIDOPHIL/B LACTIS/B LONGUM CAPSULE PO SCH ×2 (09:11→21:36)
[2017-02-06] MEDS: FOLIC ACID 1 MG TAB PO SCH (09:11)
[2017-02-06] MEDS: RISPERIDONE 2 MG TAB PO SCH ×2 (09:12→21:36)
[2017-02-06] MEDS: ASPIRIN (EC) 81 MG TAB PO SCH (09:13)
[2017-02-06] MEDS: SODIUM HYPOCHLORITE 0.125% 473 ML BTL IRR SCH (09:15)
[2017-02-06] MEDS: oxyCODONE (CR) 10 MG TAB [oxyCONTIN] PO SCH ×2 (09:15→21:00)
[2017-02-06] MEDS: COLLAGENASE 30 GM TUBE TOP SCH (09:21)
[2017-02-06] MEDS: HEPARIN 5,000 UNIT/0.5 ML VIAL SC SCH ×2 (09:25→21:42)
--- NOTE | 2017-02-06 09:52 | PN ---
Date/Time of Note Date/Time of Note DATE: 02/06/17 TIME: 09:50 Assessment/Plan Lines/Catheters IV Catheter Type (from [facility]): Peripheral IV Chambers in Place (from [facility]): No Assessment/Plan Chief Complaint/Hosp Course 1. Sacral wound: s/p debridement 01/22, periwound redness improved, min/mod drainage no odor -local care -frequent turning and repositioning -specialty bed -nutrition optimization -debridement prn 2. Sacral cellulitis: 2/2 above: CT: cellulitis surrounding an ulceration which extends into the subcutaneous fat abutting the dorsal surface of the coccyx without evidence of an associated subcutaneous abscess or osteomyelitis;afebrile ; periwound erythema improving; wound cx: ecoli; s/p debridement &abx 3. Leukocytopenia: likely 2/2 above; normalized -supportive -as above 4. Normocytic anemia: no acute bleed noted:s/p PRBC transfusion 01/19; stable -monitor -transfuse as needed 5. Thrombocytopenia 2/2 #2; resolved -bleeding precautions -supportive 6. Hyponatremia: now with hypernatremia;resolved -judicious fluid management 7.ILYA: bilateral hydronephrosis with bilateral renal cyst; cr improving -avoid nephrotoxic meds -renal dosing for meds 8. Hypocalcemia with hypoalbuminemia: likely 2/2 malnutrition, improved -nutrition optimization -optimize lytes 9. UTI: urine cx: enterobacter cloacae; afebrile; s/p abx 10. Hypomagnesemia; normalized -replete and monitor Patient seen and examined in collaboration with Dr. El Root Problems: Subjective 24 Hr Interval Summary Feels well. Scant drainage from wound. No fevers, chills, gore, dizziness, palpitations, cp, sob, cough, n/v/d, dysuria. + bowel function. Awaiting placement Exam/Review of Systems Vital Signs Vitals Vital Signs Date Time Temp Pulse Resp B/P Pulse Ox O2 Delivery O2 Flow Rate FiO2 02/06/17 07:53 98.0 82 20 172/91 99 Intake and Output 02/05/17 02/05/17 02/06/17 15:00 23:00 07:00 Intake Total 1460 ml 480 ml Output Total 1200 ml 1100 ml Balance 260 ml -620 ml Exam Free Text/Dictation Constitutional: alert, oriented Psych: normal mood Head: atraumatic, normocephalic Eyes: PERRL, nl lids, nl sclera ENMT: mucosa pink and moist, nl nasal mucosa & septum Neck: non-tender, supple Respiratory: normal air movement Cardiovascular: nl pulses, regular rate and rhythm Gastrointestinal: non-tender, soft Musculoskeletal: nl extremities to inspection Extremities: normal pulses Neurological: nl speech, nl strength Skin: other (sacral wound with pink wound bed, min drainage, periwound erythema improved, no odor) Lymph: nl lymph nodes Results Result Diagram: 02/05/17 0526 02/05/17 0527 DORINA LITTLEJOHN NP Feb 06, 2017 09:52
[2017-02-06] MEDS: clonAZEPAM 0.5 MG TAB PO PRN ×2 (09:59→21:35)
[2017-02-06 14:16] VITALS: BP 108/62; RESP 18
[2017-02-06] MEDS: HYDROCODONE/APAP (5/325) TAB PO PRN ×2 (14:16→18:21)
--- NOTE | 2017-02-06 14:34 | PN ---
Date/Time of Note Date/Time of Note DATE: 02/06/17 TIME: 14:32 Assessment/Plan VTE Prophylaxis VTE Prophylaxis Intervention: heparin Lines/Catheters IV [facility]ter Type (from [facility]): Peripheral IV Urinary Cath still in place: No Assessment/Plan Chief Complaint/Hosp Course Assessment and Plan: 1. Sacrococcygeal stage 4 decubitus ulcer with necrotic tissue. patient status post debridement. wound with e.coli. cont on antibitotics. 2. Bilateral gluetal cellulitis. cont on antibiotics 3. UTI with enterobacter cloacae. on abx 4. ILYA. monitor renal panel. stable 5. BPH. continue on tamsulosin. 6. Debility. Continue with physical therapy DISPO/PLAN: continue with wound care and abx. continue with surgeon recs. Awaiting placement. Follow up with case management Discussed plan of care with Dr. Jordan Problems: Subjective 24 Hr Interval Summary Free Text/Dictation no s/s of distress Exam/Review of Systems Vital Signs Vitals Vital Signs Date Time Temp Pulse Resp B/P Pulse Ox O2 Delivery O2 Flow Rate FiO2 02/06/17 14:16 98.1 87 18 108/62 99 Intake and Output 02/05/17 02/05/17 02/06/17 15:00 23:00 07:00 Intake Total 1460 ml 480 ml Output Total 1200 ml 1100 ml Balance 260 ml -620 ml Exam Constitutional: alert, oriented Head: normocephalic Eyes: nl conjunctiva Neck: supple Respiratory: clear to auscultation Cardiovascular: regular rate and rhythm Gastrointestinal: non-tender, soft Musculoskeletal: nl extremities to inspection Neurological: nl mental status, nl speech Skin: sacral wound Results Result Diagram: 02/05/17 0526 02/05/17 0527 Medications Medications Current Medications Aripiprazole (Abilify) 5 mg DAILY PO Last administered on 02/06/17 09:11; Admin Dose 5 MG; Start 01/18/17 at 09:00 Aspirin (Halfprin) 81 mg DAILY PO Last administered on 02/06/17 09:13; Admin Dose 81 MG; Start 01/18/17 at 09:00 Buspirone HCl (Buspar) 10 mg TID PO Last administered on 02/06/17 13:52; Admin Dose 10 MG; Start 01/18/17 at 09:00 Clonazepam (Klonopin) 1 mg BID PRN PO ANXIETY Last administered on 02/06/17 09 :59; Admin Dose 1 MG; Start 01/18/17 at 00:30 Duloxetine HCl (Cymbalta) 120 mg DAILY PO Last administered on 02/06/17 09:11 ; Admin Dose 120 MG; Start 01/18/17 at 09:00 Folic Acid (Folic Acid) 1 mg DAILY PO Last administered on 02/06/17 09:11; Admin Dose 1 MG; Start 01/18/17 at 09:00 Pregabalin (Lyrica) 50 mg BID PO Last administered on 02/06/17 09:11; Admin Dose 50 MG; Start 01/18/17 at 09:00 Ropinirole HCl (Requip) 0.25 mg HS PO Last administered on 02/05/17 21:12; Admin Dose 0.25 MG; Start 01/18/17 at 21:00 Tamsulosin HCl (Flomax) 0.4 mg HS PO Last administered on 02/05/17 21:10; Admin Dose 0.4 MG; Start 01/18/17 at 21:00 Atorvastatin Calcium (Lipitor) 5 mg QHS PO Last administered on 02/05/17 21:11 ; Admin Dose 5 MG; Start 01/18/17 at 21:00 Risperidone (Risperdal) 2 mg BID PO Last administered on 02/06/17 09:12; Admin Dose 2 MG; Start 01/18/17 at 00:30 Hydromorphone HCl (Dilaudid) 0.5 mg Q4H PRN IV PAIN Last administered on 12:00; Admin Dose 0.5 MG; Start 01/18/17 at 00:30 Morphine Sulfate (morphine) 4 mg Q4H PRN IV pain Last administered on 19:33; Admin Dose 4 MG; Start 01/18/17 at 14:00 Docusate Sodium (Colace) 250 mg DAILY PO Last administered on 02/04/17 09:30; Admin Dose 250 MG; Start 01/19/17 at 09:00 Oxycodone HCl (Oxycontin) 10 mg BID PO Last administered on 02/06/17 09:15; Admin Dose 10 MG; Start 01/18/17 at 14:23 Zinc Sulfate (Zinc Sulfate) 220 mg DAILY PO Last administered on 02/06/17 09: 11; Admin Dose 220 MG; Start 01/20/17 at 13:00 Polyethylene Glycol (Miralax) 8.5 gm DAILY PO Last administered on 02/01/17 09 :41; Admin Dose 8.5 GM; Start 01/21/17 at 09:00 Zolpidem Tartrate (Ambien) 5 mg HS PRN PO INSOMNIA Last administered on 21:43; Admin Dose 5 MG; Start 01/21/17 at 23:30 Sodium Hypochlorite (Dakin'S (1/4 Strength)) 1 applic DAILY IRR Last administered on 02/06/17 09:15; Admin Dose 1 APPLIC; Start 01/23/17 at 09:00 Collagenase (Santyl) 1 applic DAILY TOP Last administered on 02/06/17 09:21; Admin Dose 1 APPLIC; Start 01/23/17 at 09:00 Lactobacillus Acidophilus (Florajen3 Capsule) 1 each BID PO Last administered on 02/06/17 09:11; Admin Dose 1 EACH; Start 01/24/17 at 21:00 Acetaminophen/ Hydrocodone Bitart ([place] (5/325)) 1 tab Q4H PRN PO PAIN Last administered on 02/06/17 14:16; Admin Dose 1 TAB; Start 01/26/17 at 14:30 Lorazepam (Ativan) 1 mg QHS PRN PO INSOMNIA Last administered on 02/05/17 22: 30; Admin Dose 1 MG; Start 01/27/17 at 21:30 Heparin Sodium (Porcine) (Heparin (5000 Units/0.5 ml)) 5,000 unit BID SC Last administered on 02/06/17 09:25; Admin Dose 5,000 UNIT; Start 01/30/17 at 21:00 Famotidine (Pepcid) 20 mg HS PO Last administered on 02/05/17 21:12; Admin Dose 20 MG; Start 01/30/17 at 21:00 Hydralazine HCl (Apresoline) 10 mg Q6H PRN IV SBP greater than 160; Start 01/30 at 12:30 Ondansetron HCl (Zofran Inj) 4 mg Q6H PRN IV NAUSEA AND/OR VOMITING; Start at 18:30 ELIZABET PASTRANA Feb 06, 2017 14:34
[2017-02-06 20:00] VITALS: BP 106/55; PULSE 81; RESP 18
[2017-02-06] MEDS: FAMOTIDINE 20 MG TAB PO SCH (21:35)
[2017-02-06] MEDS: ATORVASTATIN 10 MG TAB PO SCH (21:35)
[2017-02-06] MEDS: ROPINIROLE 0.25 MG TAB PO SCH (21:36)
[2017-02-06] MEDS: TAMSULOSIN (SR) 0.4 MG CAP PO SCH (21:43)
[2017-02-06] MEDS: LORAZEPAM 1 MG TAB PO PRN (22:51)
[2017-02-07] MEDS: HYDROmorphONE 1 MG/ML SYG IV PRN ×5 (00:51→23:14)
[2017-02-07 02:00] VITALS: BP 128/79; PULSE 101; RESP 19
[2017-02-07 08:18] VITALS: BP 104/54; RESP 18
[2017-02-07] MEDS: DOCUSATE SODIUM 250 MG CAP PO SCH (09:59)
[2017-02-07] MEDS: POLYETHYLENE GLYCOL 17 GM PACKET PO SCH (09:59)
[2017-02-07] MEDS: SODIUM HYPOCHLORITE 0.125% 473 ML BTL IRR SCH (09:59)
[2017-02-07] MEDS: COLLAGENASE 30 GM TUBE TOP SCH (09:59)
[2017-02-07] MEDS: ARIPIPRAZOLE 5 MG TAB PO SCH (10:11)
[2017-02-07] MEDS: PREGABALIN 25 MG CAP PO SCH ×2 (10:11→21:00)
[2017-02-07] MEDS: FOLIC ACID 1 MG TAB PO SCH (10:12)
[2017-02-07] MEDS: ASPIRIN (EC) 81 MG TAB PO SCH (10:12)
[2017-02-07] MEDS: ZINC SULFATE 220 MG CAP PO SCH (10:12)
[2017-02-07] MEDS: RISPERIDONE 2 MG TAB PO SCH ×2 (10:12→21:04)
[2017-02-07] MEDS: oxyCODONE (CR) 10 MG TAB [oxyCONTIN] PO SCH ×2 (10:12→21:00)
[2017-02-07] MEDS: BUSPIRONE 10 MG TAB PO SCH ×3 (10:12→21:05)
[2017-02-07] MEDS: DULOXETINE 30 MG CAP DR PO SCH (11:15)
[2017-02-07] MEDS: clonAZEPAM 0.5 MG TAB PO PRN ×2 (11:15→21:09)
[2017-02-07] MEDS: HEPARIN 5,000 UNIT/0.5 ML VIAL SC SCH ×2 (11:20→21:07)
[2017-02-07] MEDS: L ACIDOPHIL/B LACTIS/B LONGUM CAPSULE PO SCH ×2 (12:55→21:05)
[2017-02-07 14:46] VITALS: BP 107/67; RESP 18
--- NOTE | 2017-02-07 14:51 | PN ---
Date/Time of Note Date/Time of Note DATE: 02/07/17 TIME: 14:50 Assessment/Plan VTE Prophylaxis VTE Prophylaxis Intervention: heparin Lines/Catheters IV C[facility]ter Type (from [facility]): Saline Lock Urinary Cath still in place: No Assessment/Plan Chief Complaint/Hosp Course Assessment and Plan: 1. Sacrococcygeal stage 4 decubitus ulcer with necrotic tissue. patient status post debridement. wound with e.coli. cont on antibitotics. Continue with wound care 2. Bilateral gluetal cellulitis. cont on antibiotics 3. UTI with enterobacter cloacae. on abx. Appears to be improving 4. ILYA. monitor renal panel. stable 5. BPH. continue on tamsulosin. 6. Debility. Continue with physical therapy DISPO/PLAN: Still awaiting placement. Continue with surgeon recommendations. Will follow up. Continue with antibiotics Discussed plan of care with Dr. Jordan Problems: Subjective 24 Hr Interval Summary Free Text/Dictation Patient resting in bed at this time. No signs or symptoms of distress Exam/Review of Systems Vital Signs Vitals Vital Signs Date Time Temp Pulse Resp B/P Pulse Ox O2 Delivery O2 Flow Rate FiO2 02/07/17 14:46 97.9 99 18 107/67 98 02/07/17 02:00 Room Air Intake and Output 02/06/17 02/06/17 02/07/17 14:59 22:59 06:59 Intake Total 2040 ml 800 ml Output Total 2800 ml 975 ml Balance -760 ml -175 ml Exam Constitutional: alert, oriented, comfortable at present Head: normocephalic Eyes: nl conjunctiva Neck: supple Respiratory: clear to auscultation Cardiovascular: regular rate and rhythm Gastrointestinal: non-tender, soft Musculoskeletal: nl extremities to inspection Neurological: nl mental status, nl speech Skin: sacral wound status post debridement Results Result Diagram: 02/05/17 0526 02/05/17 0527 Medications Medications Current Medications Aripiprazole (Abilify) 5 mg DAILY PO Last administered on 02/07/17 10:11; Admin Dose 5 MG; Start 01/18/17 at 09:00 Aspirin (Halfprin) 81 mg DAILY PO Last administered on 02/07/17 10:12; Admin Dose 81 MG; Start 01/18/17 at 09:00 Buspirone HCl (Buspar) 10 mg TID PO Last administered on 02/07/17 12:55; Admin Dose 10 MG; Start 01/18/17 at 09:00 Clonazepam (Klonopin) 1 mg BID PRN PO ANXIETY Last administered on 02/07/17 11: 15; Admin Dose 1 MG; Start 01/18/17 at 00:30 Duloxetine HCl (Cymbalta) 120 mg DAILY PO Last administered on 02/07/17 11:15; Admin Dose 120 MG; Start 01/18/17 at 09:00 Folic Acid (Folic Acid) 1 mg DAILY PO Last administered on 02/07/17 10:12; Admin Dose 1 MG; Start 01/18/17 at 09:00 Pregabalin (Lyrica) 50 mg BID PO Last administered on 02/07/17 10:11; Admin Dose 50 MG; Start 01/18/17 at 09:00 Ropinirole HCl (Requip) 0.25 mg HS PO Last administered on 02/06/17 21:36; Admin Dose 0.25 MG; Start 01/18/17 at 21:00 Tamsulosin HCl (Flomax) 0.4 mg HS PO Last administered on 02/06/17 21:43; Admin Dose 0.4 MG; Start 01/18/17 at 21:00 Atorvastatin Calcium (Lipitor) 5 mg QHS PO Last administered on 02/06/17 21:35 ; Admin Dose 5 MG; Start 01/18/17 at 21:00 Risperidone (Risperdal) 2 mg BID PO Last administered on 02/07/17 10:12; Admin Dose 2 MG; Start 01/18/17 at 00:30 Hydromorphone HCl (Dilaudid) 0.5 mg Q4H PRN IV PAIN Last administered on 14:44; Admin Dose 0.5 MG; Start 01/18/17 at 00:30 Morphine Sulfate (morphine) 4 mg Q4H PRN IV pain Last administered on 19:33; Admin Dose 4 MG; Start 01/18/17 at 14:00 Docusate Sodium (Colace) 250 mg DAILY PO Last administered on 02/04/17 09:30; Admin Dose 250 MG; Start 01/19/17 at 09:00 Oxycodone HCl (Oxycontin) 10 mg BID PO Last administered on 02/07/17 10:12; Admin Dose 10 MG; Start 01/18/17 at 14:23 Zinc Sulfate (Zinc Sulfate) 220 mg DAILY PO Last administered on 02/07/17 10:12 ; Admin Dose 220 MG; Start 01/20/17 at 13:00 Polyethylene Glycol (Miralax) 8.5 gm DAILY PO Last administered on 02/01/17 09 :41; Admin Dose 8.5 GM; Start 01/21/17 at 09:00 Zolpidem Tartrate (Ambien) 5 mg HS PRN PO INSOMNIA Last administered on 21:43; Admin Dose 5 MG; Start 01/21/17 at 23:30 Sodium Hypochlorite (Dakin'S (1/4 Strength)) 1 applic DAILY IRR Last administered on 02/07/17 09:59; Admin Dose 1 APPLIC; Start 01/23/17 at 09:00 Collagenase (Santyl) 1 applic DAILY TOP Last administered on 02/07/17 09:59; Admin Dose 1 APPLIC; Start 01/23/17 at 09:00 Lactobacillus Acidophilus (Florajen3 Capsule) 1 each BID PO Last administered on 02/07/17 12:55; Admin Dose 1 EACH; Start 01/24/17 at 21:00 Acetaminophen/ Hydrocodone Bitart ([place] (5/325)) 1 tab Q4H PRN PO PAIN Last administered on 02/06/17 18:21; Admin Dose 1 TAB; Start 01/26/17 at 14:30 Lorazepam (Ativan) 1 mg QHS PRN PO INSOMNIA Last administered on 02/06/17 22: 51; Admin Dose 1 MG; Start 01/27/17 at 21:30 Heparin Sodium (Porcine) (Heparin (5000 Units/0.5 ml)) 5,000 unit BID SC Last administered on 02/07/17 11:20; Admin Dose 5,000 UNIT; Start 01/30/17 at 21:00 Famotidine (Pepcid) 20 mg HS PO Last administered on 02/06/17 21:35; Admin Dose 20 MG; Start 01/30/17 at 21:00 Hydralazine HCl (Apresoline) 10 mg Q6H PRN IV SBP greater than 160; Start 7/24 /17 at 12:30 Ondansetron HCl (Zofran Inj) 4 mg Q6H PRN IV NAUSEA AND/OR VOMITING; Start at 18:30 ELIZABET PASTRANA Feb 07, 2017 14:51
[2017-02-07] MEDS: HYDROCODONE/APAP (5/325) TAB PO PRN (17:02)
--- NOTE | 2017-02-07 20:21 | PN ---
Date/Time of Note Date/Time of Note DATE: 02/07/17 TIME: 20:21 Assessment/Plan Lines/Catheters IV Catheter Type (from [facility]): Saline Lock Chambers in Place (from [facility]): No Assessment/Plan Chief Complaint/Hosp Course 1. Sacral wound & ? infection s/p abx & debridement 01/22, periwound redness improved, min/mod drainage no odor -local care -frequent turning and repositioning -specialty bed -nutrition optimization -debridement prn 2. Normocytic anemia: no acute bleed noted:s/p PRBC transfusion 01/19; stable -monitor -transfuse as needed 3. ILYA: bilateral hydronephrosis with bilateral renal cyst; cr improved -avoid nephrotoxic meds -renal dosing for meds 4. UTI: urine cx: enterobacter cloacae; afebrile; s/p abx 5. Thrombocytopenia 2/2 #2; resolved -bleeding precautions -supportive Thank you, Problems: Subjective 24 Hr Interval Summary Feels well. Scant drainage from wound. No fevers, chills, gore, dizziness, palpitations, cp, sob, cough, n/v/d, dysuria. + bowel function. Awaiting placement Exam/Review of Systems Vital Signs Vitals Vital Signs Date Time Temp Pulse Resp B/P Pulse Ox O2 Delivery O2 Flow Rate FiO2 02/07/17 14:46 97.9 99 18 107/67 98 02/07/17 02:00 Room Air Intake and Output 02/06/17 02/06/17 02/07/17 15:00 23:00 07:00 Intake Total 2040 ml 800 ml Output Total 2800 ml 975 ml Balance -760 ml -175 ml Exam Free Text/Dictation Constitutional: alert, oriented Psych: normal mood Head: atraumatic, normocephalic Eyes: PERRL, nl lids, nl sclera ENMT: mucosa pink and moist, nl nasal mucosa & septum Neck: non-tender, supple Respiratory: normal air movement Cardiovascular: nl pulses, regular rate and rhythm Gastrointestinal: non-tender, soft Musculoskeletal: nl extremities to inspection Extremities: normal pulses Neurological: nl speech, nl strength Skin: other (sacral wound with pink wound bed, min drainage, periwound erythema improved, no odor) Lymph: nl lymph nodes Results Result Diagram: 02/05/1752502/05/17526 SAVANNAH ELIZABETH MD Feb 07, 2017 20:21
[2017-02-07 20:22] VITALS: BP 100/61; RESP 20
[2017-02-07] MEDS: FAMOTIDINE 20 MG TAB PO SCH (21:04)
[2017-02-07] MEDS: ROPINIROLE 0.25 MG TAB PO SCH (21:05)
[2017-02-07] MEDS: TAMSULOSIN (SR) 0.4 MG CAP PO SCH (21:05)
[2017-02-07] MEDS: ATORVASTATIN 10 MG TAB PO SCH (21:05)
[2017-02-07] MEDS: LORAZEPAM 1 MG TAB PO PRN (22:14)
[2017-02-07 22:15] VITALS: BP 110/61; PULSE 85
[2017-02-08 02:45] VITALS: BP 106/69; RESP 18
[2017-02-08] MEDS: HYDROmorphONE 1 MG/ML SYG IV PRN ×5 (03:19→23:49)
[2017-02-08] MEDS: HYDROCODONE/APAP (5/325) TAB PO PRN ×4 (05:45→21:23)
[2017-02-08 07:18] VITALS: BP 104/62; RESP 16
[2017-02-08] MEDS: POLYETHYLENE GLYCOL 17 GM PACKET PO SCH ×2 (09:00→10:16)
[2017-02-08] MEDS: oxyCODONE (CR) 10 MG TAB [oxyCONTIN] PO SCH ×3 (09:00→21:00)
[2017-02-08] MEDS: DOCUSATE SODIUM 250 MG CAP PO SCH ×2 (09:00→10:16)
[2017-02-08] MEDS: DULOXETINE 30 MG CAP DR PO SCH (09:18)
[2017-02-08] MEDS: FOLIC ACID 1 MG TAB PO SCH (09:18)
[2017-02-08] MEDS: ASPIRIN (EC) 81 MG TAB PO SCH (09:18)
[2017-02-08] MEDS: RISPERIDONE 2 MG TAB PO SCH ×2 (09:18→21:21)
[2017-02-08] MEDS: BUSPIRONE 10 MG TAB PO SCH ×3 (09:18→21:21)
[2017-02-08] MEDS: ZINC SULFATE 220 MG CAP PO SCH (09:18)
[2017-02-08] MEDS: PREGABALIN 25 MG CAP PO SCH ×2 (09:18→21:22)
[2017-02-08] MEDS: L ACIDOPHIL/B LACTIS/B LONGUM CAPSULE PO SCH ×2 (09:18→21:21)
[2017-02-08] MEDS: ARIPIPRAZOLE 5 MG TAB PO SCH (09:19)
[2017-02-08] MEDS: HEPARIN 5,000 UNIT/0.5 ML VIAL SC SCH ×2 (09:22→21:32)
[2017-02-08] MEDS: clonAZEPAM 0.5 MG TAB PO PRN ×2 (09:23→21:20)
[2017-02-08] MEDS: SODIUM HYPOCHLORITE 0.125% 473 ML BTL IRR SCH (09:27)
[2017-02-08] MEDS: COLLAGENASE 30 GM TUBE TOP SCH (09:27)
[2017-02-08] MEDS ORDERED: L.AC460C PO (10:22)
[2017-02-08] MEDS ORDERED: SAN30GM TOP (10:22)
[2017-02-08] MEDS ORDERED: ZINC220C11 PO (10:22)
[2017-02-08] MEDS ORDERED: POLY17PO6 PO (10:28)
[2017-02-08] MEDS ORDERED: SODI473S16 IRR (10:28)
--- NOTE | 2017-02-08 12:57 | CONS ---
Date/Time of Note Date/Time of Note DATE: 02/08/17 TIME: 12:40 Assessment/Plan Assessment/Plan Chief Complaint/Hosp Course ID PROGRESS NOTE CURRENT ABX: OFF ABX day # 7 TOTAL ABX DAY # 14=> Completed 14 day course on 01/20 s/p Levaquin # 01/24 - 01/30 s/p Vanco IV + Zosyn-> dc 01/24 s/p Ceftriaxone 01/17 x1 24H INTERVAL SUMMARY * Clinically stable -- off ABX with ongoing local sacrad wound care -- per surgery notes, mild erythema w/scant drainage, no foul odor, continue LOCAL would care. * No fevers, VSS, NAD, awake w/eyes open, no new issues, no complaints offered * DC PLANNING to SNF PHYSICAL EXAMINATION: GENERAL: VSS, NAD, no fevers HEENT: Unremarkable, NECK: Supple,full ROM CHEST: Equal chest rise bilaterally, without dyspnea on observation HEART: Pulse RRR ABDOMEN: Soft, nontender EXTREMITIES: Warm, DRY SKIN: Warm, dry ID ASSESSMENT: 66 yo M w/PMHx PsychDx, HCV, lumbosacral pain post spinal decompression admitted with: 1. SIRS -> low grade fevers, leukocytosis, tachycardia present on admission due to GNR Pyelonephritis + Unstageable sacral wound => RESOLVED * Blood Cx (-) to date 2. Sacral wound =>infected? Per surgery note 02/07/17 (+) periwound redness improved, min/mod drainage no odor * s/p DEBRIDEMENT 01/22 * s/p full course of ABX=> Completed 14 day ABX course on 01/20 * 01/17/17 CT (prior to debridement): There is cellulitis surrounding an ulceration which extends into the subcutaneous fat abutting the dorsal surface of the coccyx without evidence of an associated subcutaneous abscess or osteomyelitis. 3. Acute Pyelonephritis due to complicated UTI =>Completed 14 day ABX course on 01/20 * 01/18 Renal SUNNY: Mild bilateral hydronephrosis. Mildly distended urinary bladder with dependent debris in the lumen. * ? obstructive uropathy vs urinary retention ? * MICRO: (+)ENTEROBACTER CLOACAE => DEVELOPS RESISTANCE TO CEPHALOSPORINS QUICKLY 4. Acute renal failure possible chronic kidney disease 5. Acute on chronic anemia History of hepatitis C virus 6. Interval clearing of previously noted right lower lobe pneumonia 7. Hx of CAD - stable 8. Severe lumbosacral DJD/DDD w/hx of Posterior spinal fusion from L4-S1 with evidence of bilateral L5 laminectomy. * CT: (+)Severe disk space narrowing at L5-S1 with bilateral bony nerve root canal stenosis and bilateral degenerative facet arthropathy at L5-S1. 9. Hx of Old healed internally fixated fracture to the neck of the proximal left femur. 10. Chronic debility/chronic pain/limited mobility issues due to #8 ?MRSA Nares INVASIVES: * PIV ABX ALLERGIES: KNDA CURRENT ABX: OFF ABX day # 7 TOTAL ABX DAY # 14=> Completed 14 day course on 01/20 s/p Levaquin # 01/24 - 01/30 s/p Vanco IV + Zosyn-> dc 01/24 s/p Ceftriaxone 01/17 x1 ID RECOMMENDATIONS: 1. Patient stable on local wound care post wound debridement -> s/p total 14 day ABX course 2. May Transfer to SNF with LOCAL wound care OFF ABX -- no indication for isolation. . . Problems: Consultation Date/Type/Reason Admit Date/Time Jan 17, 2017 at 21:06 Initial Consult Date 01/19/17 Type of Consultation: id Exam/Review of Systems Vital Signs Vitals Vital Signs Date Time Temp Pulse Resp B/P Pulse Ox O2 Delivery O2 Flow Rate FiO2 02/08/17 07:18 98.2 80 16 104/62 95 02/07/17 02:00 Room Air Intake and Output 02/07/17 02/07/17 02/08/17 15:00 23:00 07:00 Intake Total 2060 ml Output Total 1800 ml Balance 260 ml Results Result Diagram: 02/05/17 0526 02/05/17 0527 Medications Medications Current Medications Aripiprazole (Abilify) 5 mg DAILY PO Last administered on 02/08/17 09:19; Admin Dose 5 MG; Start 01/18/17 at 09:00 Aspirin (Halfprin) 81 mg DAILY PO Last administered on 02/08/17 09:18; Admin Dose 81 MG; Start 01/18/17 at 09:00 Buspirone HCl (Buspar) 10 mg TID PO Last administered on 02/08/17 09:18; Admin Dose 10 MG; Start 01/18/17 at 09:00 Clonazepam (Klonopin) 1 mg BID PRN PO ANXIETY Last administered on 02/08/17 09: 23; Admin Dose 1 MG; Start 01/18/17 at 00:30 Duloxetine HCl (Cymbalta) 120 mg DAILY PO Last administered on 02/08/17 09:18; Admin Dose 120 MG; Start 01/18/17 at 09:00 Folic Acid (Folic Acid) 1 mg DAILY PO Last administered on 02/08/17 09:18; Admin Dose 1 MG; Start 01/18/17 at 09:00 Pregabalin (Lyrica) 50 mg BID PO Last administered on 02/08/17 09:18; Admin Dose 50 MG; Start 01/18/17 at 09:00 Ropinirole HCl (Requip) 0.25 mg HS PO Last administered on 02/07/17 21:05; Admin Dose 0.25 MG; Start 01/18/17 at 21:00 Tamsulosin HCl (Flomax) 0.4 mg HS PO Last administered on 02/07/17 21:05; Admin Dose 0.4 MG; Start 01/18/17 at 21:00 Atorvastatin Calcium (Lipitor) 5 mg QHS PO Last administered on 02/07/17 21:05 ; Admin Dose 5 MG; Start 01/18/17 at 21:00 Risperidone (Risperdal) 2 mg BID PO Last administered on 02/08/17 09:18; Admin Dose 2 MG; Start 01/18/17 at 00:30 Hydromorphone HCl (Dilaudid) 0.5 mg Q4H PRN IV PAIN Last administered on 10:16; Admin Dose 0.5 MG; Start 01/18/17 at 00:30 Morphine Sulfate (morphine) 4 mg Q4H PRN IV pain Last administered on 19:33; Admin Dose 4 MG; Start 01/18/17 at 14:00 Docusate Sodium (Colace) 250 mg DAILY PO Last administered on 02/08/17 10:16; Admin Dose 250 MG; Start 01/19/17 at 09:00 Oxycodone HCl (Oxycontin) 10 mg BID PO Last administered on 02/07/17 10:12; Admin Dose 10 MG; Start 01/18/17 at 14:23 Zinc Sulfate (Zinc Sulfate) 220 mg DAILY PO Last administered on 02/08/17 09:18 ; Admin Dose 220 MG; Start 01/20/17 at 13:00 Polyethylene Glycol (Miralax) 8.5 gm DAILY PO Last administered on 02/08/17 10: 16; Admin Dose 8.5 GM; Start 01/21/17 at 09:00 Zolpidem Tartrate (Ambien) 5 mg HS PRN PO INSOMNIA Last administered on 21:43; Admin Dose 5 MG; Start 01/21/17 at 23:30 Sodium Hypochlorite (Dakin'S (1/4 Strength)) 1 applic DAILY IRR Last administered on 02/08/17 09:27; Admin Dose 1 APPLIC; Start 01/23/17 at 09:00 Collagenase (Santyl) 1 applic DAILY TOP Last administered on 02/08/17 09:27; Admin Dose 1 APPLIC; Start 01/23/17 at 09:00 Lactobacillus Acidophilus (Florajen3 Capsule) 1 each BID PO Last administered on 02/08/17 09:18; Admin Dose 1 EACH; Start 01/24/17 at 21:00 Acetaminophen/ Hydrocodone Bitart ([place] (5/325)) 1 tab Q4H PRN PO PAIN Last administered on 02/08/17 05:45; Admin Dose 1 TAB; Start 01/26/17 at 14:30 Lorazepam (Ativan) 1 mg QHS PRN PO INSOMNIA Last administered on 02/07/17 22:14 ; Admin Dose 1 MG; Start 01/27/17 at 21:30 Heparin Sodium (Porcine) (Heparin (5000 Units/0.5 ml)) 5,000 unit BID SC Last administered on 02/08/17 09:22; Admin Dose 5,000 UNIT; Start 01/30/17 at 21:00 Famotidine (Pepcid) 20 mg HS PO Last administered on 02/07/17 21:04; Admin Dose 20 MG; Start 01/30/17 at 21:00 Hydralazine HCl (Apresoline) 10 mg Q6H PRN IV SBP greater than 160; Start 01/30 at 12:30 Ondansetron HCl (Zofran Inj) 4 mg Q6H PRN IV NAUSEA AND/OR VOMITING; Start at 18:30 IMELDA HAND NP Feb 08, 2017 12:50
[2017-02-08 13:57] VITALS: BP 101/60; RESP 18
--- NOTE | 2017-02-08 16:17 | PN ---
Date/Time of Note Date/Time of Note DATE: 02/08/17 TIME: 16:16 Assessment/Plan VTE Prophylaxis VTE Prophylaxis Intervention: heparin Lines/Catheters IV Catheter Type (from [facility]): Saline Lock Urinary Cath still in place: No Assessment/Plan Chief Complaint/Hosp Course Assessment and Plan: 1. Sacrococcygeal stage 4 decubitus ulcer with necrotic tissue. patient status post debridement. wound with e.coli. cont on antibitotics. Continue with wound care 2. Bilateral gluetal cellulitis. cont on antibiotics 3. UTI with enterobacter cloacae. on abx. Appears to be improving 4. ILYA. monitor renal panel. stable 5. BPH. continue on tamsulosin. 6. Debility. Continue with physical therapy DISPO/PLAN: Continue wound care and antibiotics. Case management following for placement. Will follow up. Discussed plan of care with Dr. Jordan Problems: Subjective 24 Hr Interval Summary Free Text/Dictation Resting at this time. Comfortable at present Exam/Review of Systems Vital Signs Vitals Vital Signs Date Time Temp Pulse Resp B/P Pulse Ox O2 Delivery O2 Flow Rate FiO2 02/08/17 13:57 98.7 89 18 101/60 96 02/07/17 02:00 Room Air Intake and Output 02/07/17 02/07/17 02/08/17 14:59 22:59 06:59 Intake Total 2060 ml Output Total 1800 ml Balance 260 ml Exam Constitutional: alert, oriented, comfortable at present Head: normocephalic Eyes: nl conjunctiva Neck: supple Respiratory: clear to auscultation Cardiovascular: regular rate and rhythm Gastrointestinal: non-tender, soft Musculoskeletal: nl extremities to inspection Neurological: nl mental status, nl speech Skin: sacral wound status post debridement Results Result Diagram: 02/05/17 0526 02/05/17 0527 Medications Medications Current Medications Aripiprazole (Abilify) 5 mg DAILY PO Last administered on 02/08/17 09:19; Admin Dose 5 MG; Start 01/18/17 at 09:00 Aspirin (Halfprin) 81 mg DAILY PO Last administered on 02/08/17 09:18; Admin Dose 81 MG; Start 01/18/17 at 09:00 Buspirone HCl (Buspar) 10 mg TID PO Last administered on 02/08/17 12:42; Admin Dose 10 MG; Start 01/18/17 at 09:00 Clonazepam (Klonopin) 1 mg BID PRN PO ANXIETY Last administered on 02/08/17 09: 23; Admin Dose 1 MG; Start 01/18/17 at 00:30 Duloxetine HCl (Cymbalta) 120 mg DAILY PO Last administered on 02/08/17 09:18; Admin Dose 120 MG; Start 01/18/17 at 09:00 Folic Acid (Folic Acid) 1 mg DAILY PO Last administered on 02/08/17 09:18; Admin Dose 1 MG; Start 01/18/17 at 09:00 Pregabalin (Lyrica) 50 mg BID PO Last administered on 02/08/17 09:18; Admin Dose 50 MG; Start 01/18/17 at 09:00 Ropinirole HCl (Requip) 0.25 mg HS PO Last administered on 02/07/17 21:05; Admin Dose 0.25 MG; Start 01/18/17 at 21:00 Tamsulosin HCl (Flomax) 0.4 mg HS PO Last administered on 02/07/17 21:05; Admin Dose 0.4 MG; Start 01/18/17 at 21:00 Atorvastatin Calcium (Lipitor) 5 mg QHS PO Last administered on 02/07/17 21:05 ; Admin Dose 5 MG; Start 01/18/17 at 21:00 Risperidone (Risperdal) 2 mg BID PO Last administered on 02/08/17 09:18; Admin Dose 2 MG; Start 01/18/17 at 00:30 Hydromorphone HCl (Dilaudid) 0.5 mg Q4H PRN IV PAIN Last administered on 14:50; Admin Dose 0.5 MG; Start 01/18/17 at 00:30 Morphine Sulfate (morphine) 4 mg Q4H PRN IV pain Last administered on 19:33; Admin Dose 4 MG; Start 01/18/17 at 14:00 Docusate Sodium (Colace) 250 mg DAILY PO Last administered on 02/08/17 10:16; Admin Dose 250 MG; Start 01/19/17 at 09:00 Oxycodone HCl (Oxycontin) 10 mg BID PO Last administered on 02/08/17 15:10; Admin Dose 10 MG; Start 01/18/17 at 14:23 Zinc Sulfate (Zinc Sulfate) 220 mg DAILY PO Last administered on 02/08/17 09:18 ; Admin Dose 220 MG; Start 01/20/17 at 13:00 Polyethylene Glycol (Miralax) 8.5 gm DAILY PO Last administered on 02/08/17 10: 16; Admin Dose 8.5 GM; Start 01/21/17 at 09:00 Zolpidem Tartrate (Ambien) 5 mg HS PRN PO INSOMNIA Last administered on 21:43; Admin Dose 5 MG; Start 01/21/17 at 23:30 Sodium Hypochlorite (Dakin'S (1/4 Strength)) 1 applic DAILY IRR Last administered on 02/08/17 09:27; Admin Dose 1 APPLIC; Start 01/23/17 at 09:00 Collagenase (Santyl) 1 applic DAILY TOP Last administered on 02/08/17 09:27; Admin Dose 1 APPLIC; Start 01/23/17 at 09:00 Lactobacillus Acidophilus (Florajen3 Capsule) 1 each BID PO Last administered on 02/08/17 09:18; Admin Dose 1 EACH; Start 01/24/17 at 21:00 Acetaminophen/ Hydrocodone Bitart ([place] (5/325)) 1 tab Q4H PRN PO PAIN Last administered on 02/08/17 12:42; Admin Dose 1 TAB; Start 01/26/17 at 14:30 Lorazepam (Ativan) 1 mg QHS PRN PO INSOMNIA Last administered on 02/07/17 22:14 ; Admin Dose 1 MG; Start 01/27/17 at 21:30 Heparin Sodium (Porcine) (Heparin (5000 Units/0.5 ml)) 5,000 unit BID SC Last administered on 02/08/17 09:22; Admin Dose 5,000 UNIT; Start 01/30/17 at 21:00 Famotidine (Pepcid) 20 mg HS PO Last administered on 02/07/17 21:04; Admin Dose 20 MG; Start 01/30/17 at 21:00 Hydralazine HCl (Apresoline) 10 mg Q6H PRN IV SBP greater than 160; Start 01/30 at 12:30 Ondansetron HCl (Zofran Inj) 4 mg Q6H PRN IV NAUSEA AND/OR VOMITING; Start at 18:30 ELIZABET PASTRANA Feb 08, 2017 16:17
--- NOTE | 2017-02-08 16:53 | PN ---
Date/Time of Note Date/Time of Note DATE: 02/08/17 TIME: 16:51 Assessment/Plan Lines/Catheters IV Catheter Type (from [facility]): Saline Lock Chambers in Place (from [facility]): No Assessment/Plan Chief Complaint/Hosp Course 1. Sacral wound: s/p debridement 01/22, periwound redness improved, min/mod drainage no odor -local care -frequent turning and repositioning -specialty bed -nutrition optimization -debridement prn 2. Sacral cellulitis: s/p debridement &abx 3. Leukocytopenia: likely 2/2 above; normalized 4. Normocytic anemia: no acute bleed noted:s/p PRBC transfusion 01/19; stable -monitor -transfuse as needed 5. Thrombocytopenia 2/2 #2; resolved -bleeding precautions -supportive 6.ILYA: bilateral hydronephrosis with bilateral renal cyst; cr improving -avoid nephrotoxic meds -renal dosing for meds 7. H\ypoalbuminemia: likely 2/2 malnutrition, improved -nutrition optimization -optimize lytes 8. UTI: s/p abx Patient seen and examined in collaboration with Dr. El Root Problems: Subjective 24 Hr Interval Summary Pending placement. Feels well. Mild discomfort to sacral area. Scant drainage and discomfort. No fevers, chills, sob, cough, n/v/d, gore, dizziness. Exam/Review of Systems Vital Signs Vitals Vital Signs Date Time Temp Pulse Resp B/P Pulse Ox O2 Delivery O2 Flow Rate FiO2 02/08/17 19:47 97.6 81 20 105/57 96 02/07/17 02:00 Room Air Intake and Output 02/07/17 02/07/17 02/08/17 15:00 23:00 07:00 Intake Total 2060 ml Output Total 1800 ml Balance 260 ml Exam Free Text/Dictation Constitutional: alert, oriented Psych: labile mood Head: atraumatic, normocephalic Eyes: PERRL, nl lids, nl sclera ENMT: mucosa pink and moist, nl nasal mucosa & septum Neck: non-tender, supple Respiratory: normal air movement Cardiovascular: nl pulses, regular rate and rhythm Gastrointestinal: non-tender, soft Musculoskeletal: nl extremities to inspection Extremities: normal pulses Neurological: nl speech, nl strength Skin: other (sacral wound with pink wound bed, scant drainage, no odor) Lymph: nl lymph nodes Results Result Diagram: 02/05/17 0526 02/05/17 0527 DORINA LITTLEJOHN NP Feb 08, 2017 16:53
[2017-02-08 19:47] VITALS: BP 105/57; RESP 20
[2017-02-08] MEDS: FAMOTIDINE 20 MG TAB PO SCH (21:21)
[2017-02-08] MEDS: TAMSULOSIN (SR) 0.4 MG CAP PO SCH (21:21)
[2017-02-08] MEDS: ROPINIROLE 0.25 MG TAB PO SCH (21:21)
[2017-02-08] MEDS: ATORVASTATIN 10 MG TAB PO SCH (21:23)
[2017-02-08] MEDS: LORAZEPAM 1 MG TAB PO PRN (23:49)
[2017-02-09 01:52] VITALS: BP 112/55; RESP 18
[2017-02-09] MEDS: HYDROmorphONE 1 MG/ML SYG IV PRN ×5 (05:14→21:41)
[2017-02-09 07:52] VITALS: BP 147/78; RESP 20
[2017-02-09] MEDS: oxyCODONE (CR) 10 MG TAB [oxyCONTIN] PO SCH ×2 (09:00→20:29)
[2017-02-09] MEDS: DULOXETINE 30 MG CAP DR PO SCH (09:33)
[2017-02-09] MEDS: POLYETHYLENE GLYCOL 17 GM PACKET PO SCH (09:33)
[2017-02-09] MEDS: DOCUSATE SODIUM 250 MG CAP PO SCH (09:34)
[2017-02-09] MEDS: FOLIC ACID 1 MG TAB PO SCH (09:34)
[2017-02-09] MEDS: ZINC SULFATE 220 MG CAP PO SCH (09:34)
[2017-02-09] MEDS: L ACIDOPHIL/B LACTIS/B LONGUM CAPSULE PO SCH ×2 (09:34→20:25)
[2017-02-09] MEDS: BUSPIRONE 10 MG TAB PO SCH ×3 (09:34→20:25)
[2017-02-09] MEDS: clonAZEPAM 0.5 MG TAB PO PRN ×2 (09:34→20:26)
[2017-02-09] MEDS: RISPERIDONE 2 MG TAB PO SCH ×2 (09:34→20:25)
[2017-02-09] MEDS: PREGABALIN 25 MG CAP PO SCH ×2 (09:34→20:25)
[2017-02-09] MEDS: ASPIRIN (EC) 81 MG TAB PO SCH (09:34)
[2017-02-09] MEDS: SODIUM HYPOCHLORITE 0.125% 473 ML BTL IRR SCH (09:35)
[2017-02-09] MEDS: ARIPIPRAZOLE 5 MG TAB PO SCH (09:35)
[2017-02-09] MEDS: COLLAGENASE 30 GM TUBE TOP SCH (09:35)
--- NOTE | 2017-02-09 10:21 | PN ---
Date/Time of Note Date/Time of Note DATE: 02/09/17 TIME: 10:17 Assessment/Plan Lines/Catheters IV Catheter Type (from [facility]): Saline Lock [facility] in Place (from [facility]): No Assessment/Plan Chief Complaint/Hosp Course 1. Sacral wound: s/p debridement 01/22, periwound redness improved, min drainage no odor -local care -frequent turning and repositioning -specialty bed -nutrition optimization -debridement prn 2. Sacral cellulitis: s/p debridement &abx 3. Leukocytopenia:resolved 4. Normocytic anemia: no acute bleed noted:s/p PRBC transfusion 01/19; stable -monitor 5. Thrombocytopenia 2/2 #2; resolved 6.ILYA: bilateral hydronephrosis with bilateral renal cyst; cr improving -avoid nephrotoxic meds -renal dosing for meds 7. H\ypoalbuminemia: likely 2/2 malnutrition, improved -nutrition optimization -optimize lytes 8. UTI: s/p abx Patient seen and examined in collaboration with Dr. El Root Problems: Subjective 24 Hr Interval Summary Pending placement. Feels ok. No drainage from wounds. intermittent discomfort to back. No fevers, chills, cough, cp, palpitations, dysuria, n/v/d. Exam/Review of Systems Vital Signs Vitals Vital Signs Date Time Temp Pulse Resp B/P Pulse Ox O2 Delivery O2 Flow Rate FiO2 02/09/17 07:52 98.0 100 20 147/78 96 02/07/17 02:00 Room Air Intake and Output 02/08/17 02/08/17 02/09/17 15:00 23:00 07:00 Intake Total 1100 ml 1640 ml 360 ml Output Total 1600 ml 550 ml 700 ml Balance -500 ml 1090 ml -340 ml Exam Free Text/Dictation Constitutional: alert, oriented Psych: labile mood Head: atraumatic, normocephalic Eyes: PERRL, nl lids, nl sclera ENMT: mucosa pink and moist, nl nasal mucosa & septum Neck: non-tender, supple Respiratory: normal air movement Cardiovascular: nl pulses, regular rate and rhythm Gastrointestinal: non-tender, soft Musculoskeletal: nl extremities to inspection Extremities: normal pulses Neurological: nl speech, nl strength Skin: other (sacral wound with pink wound bed, scant drainage, no odor, healing well) Lymph: nl lymph nodes Results Result Diagram: 02/05/17 0526 02/05/17 0527 DORINA LITTLEJOHN NP Feb 09, 2017 10:21
[2017-02-09] MEDS: HEPARIN 5,000 UNIT/0.5 ML VIAL SC SCH ×2 (11:18→20:31)
[2017-02-09] MEDS: HYDROCODONE/APAP (5/325) TAB PO PRN ×3 (11:46→23:41)
[2017-02-09 13:10] VITALS: BP 101/63; RESP 18
--- NOTE | 2017-02-09 15:04 | PN ---
Date/Time of Note Date/Time of Note DATE: 02/09/17 TIME: 15:00 Assessment/Plan VTE Prophylaxis VTE Prophylaxis Intervention: heparin Lines/Catheters IV Catheter Type (from [facility]): Saline Lock Urinary Cath still in place: No Assessment/Plan Chief Complaint/Hosp Course Assessment and Plan: 1. Sacrococcygeal stage 4 decubitus ulcer with necrotic tissue. patient status post debridement. wound with e.coli. off antibitotics. Continue with wound care 2. Bilateral gluetal cellulitis. off antibiotics 3. UTI with enterobacter cloacae. off abx. Appears to be improving 4. ILYA. monitor renal panel. stable 5. BPH. continue on tamsulosin. stable at present 6. Debility. Continue with physical therapy DISPO/PLAN: continue supportive care. continue wound care. Still awaiting placement. Follow up with case management Discussed plan of care with Dr. Jordan Problems: Subjective 24 Hr Interval Summary Free Text/Dictation no s/s of distress at this time. no specific complaints Exam/Review of Systems Vital Signs Vitals Vital Signs Date Time Temp Pulse Resp B/P Pulse Ox O2 Delivery O2 Flow Rate FiO2 02/09/17 13:10 98.7 84 18 101/63 98 02/09/17 08:00 Room Air Intake and Output 02/08/17 02/08/17 02/09/17 15:00 23:00 07:00 Intake Total 1100 ml 1640 ml 360 ml Output Total 1600 ml 550 ml 700 ml Balance -500 ml 1090 ml -340 ml Exam Constitutional: alert, oriented, comfortable at present Head: normocephalic Eyes: nl conjunctiva Neck: supple Respiratory: clear to auscultation Cardiovascular: regular rate and rhythm Gastrointestinal: non-tender, soft Musculoskeletal: nl extremities to inspection Neurological: nl mental status, nl speech Skin: sacral wound status post debridement Results Result Diagram: 02/05/1752502/05/17526 Medications Medications Current Medications Aripiprazole (Abilify) 5 mg DAILY PO Last administered on 02/09/17 09:35; Admin Dose 5 MG; Start 01/18/17 at 09:00 Aspirin (Halfprin) 81 mg DAILY PO Last administered on 02/09/17 09:34; Admin Dose 81 MG; Start 01/18/17 at 09:00 Buspirone HCl (Buspar) 10 mg TID PO Last administered on 02/09/17 13:35; Admin Dose 10 MG; Start 01/18/17 at 09:00 Clonazepam (Klonopin) 1 mg BID PRN PO ANXIETY Last administered on 02/09/17 09: 34; Admin Dose 1 MG; Start 01/18/17 at 00:30 Duloxetine HCl (Cymbalta) 120 mg DAILY PO Last administered on 02/09/17 09:33; Admin Dose 120 MG; Start 01/18/17 at 09:00 Folic Acid (Folic Acid) 1 mg DAILY PO Last administered on 02/09/17 09:34; Admin Dose 1 MG; Start 01/18/17 at 09:00 Pregabalin (Lyrica) 50 mg BID PO Last administered on 02/09/17 09:34; Admin Dose 50 MG; Start 01/18/17 at 09:00 Ropinirole HCl (Requip) 0.25 mg HS PO Last administered on 02/08/17 21:21; Admin Dose 0.25 MG; Start 01/18/17 at 21:00 Tamsulosin HCl (Flomax) 0.4 mg HS PO Last administered on 02/08/17 21:21; Admin Dose 0.4 MG; Start 01/18/17 at 21:00 Atorvastatin Calcium (Lipitor) 5 mg QHS PO Last administered on 02/08/17 21:23 ; Admin Dose 5 MG; Start 01/18/17 at 21:00 Risperidone (Risperdal) 2 mg BID PO Last administered on 02/09/17 09:34; Admin Dose 2 MG; Start 01/18/17 at 00:30 Hydromorphone HCl (Dilaudid) 0.5 mg Q4H PRN IV PAIN Last administered on 13:36; Admin Dose 0.5 MG; Start 01/18/17 at 00:30 Morphine Sulfate (morphine) 4 mg Q4H PRN IV pain Last administered on 19:33; Admin Dose 4 MG; Start 01/18/17 at 14:00 Docusate Sodium (Colace) 250 mg DAILY PO Last administered on 02/09/17 09:34; Admin Dose 250 MG; Start 01/19/17 at 09:00 Oxycodone HCl (Oxycontin) 10 mg BID PO Last administered on 02/08/17 15:10; Admin Dose 10 MG; Start 01/18/17 at 14:23 Zinc Sulfate (Zinc Sulfate) 220 mg DAILY PO Last administered on 02/09/17 09:34 ; Admin Dose 220 MG; Start 01/20/17 at 13:00 Polyethylene Glycol (Miralax) 8.5 gm DAILY PO Last administered on 02/09/17 09: 33; Admin Dose 8.5 GM; Start 01/21/17 at 09:00 Zolpidem Tartrate (Ambien) 5 mg HS PRN PO INSOMNIA Last administered on 21:43; Admin Dose 5 MG; Start 01/21/17 at 23:30 Sodium Hypochlorite (Dakin'S (1/4 Strength)) 1 applic DAILY IRR Last administered on 02/09/17 09:35; Admin Dose 1 APPLIC; Start 01/23/17 at 09:00 Collagenase (Santyl) 1 applic DAILY TOP Last administered on 02/09/17 09:35; Admin Dose 1 APPLIC; Start 01/23/17 at 09:00 Lactobacillus Acidophilus (Florajen3 Capsule) 1 each BID PO Last administered on 02/09/17 09:34; Admin Dose 1 EACH; Start 01/24/17 at 21:00 Acetaminophen/ Hydrocodone Bitart ([place] (5/325)) 1 tab Q4H PRN PO PAIN Last administered on 02/09/17 11:46; Admin Dose 1 TAB; Start 01/26/17 at 14:30 Lorazepam (Ativan) 1 mg QHS PRN PO INSOMNIA Last administered on 02/08/17 23:49 ; Admin Dose 1 MG; Start 01/27/17 at 21:30 Heparin Sodium (Porcine) (Heparin (5000 Units/0.5 ml)) 5,000 unit BID SC Last administered on 02/09/17 11:18; Admin Dose 5,000 UNIT; Start 01/30/17 at 21:00 Famotidine (Pepcid) 20 mg HS PO Last administered on 02/08/17 21:21; Admin Dose 20 MG; Start 01/30/17 at 21:00 Hydralazine HCl (Apresoline) 10 mg Q6H PRN IV SBP greater than 160; Start 01/30 at 12:30 Ondansetron HCl (Zofran Inj) 4 mg Q6H PRN IV NAUSEA AND/OR VOMITING; Start at 18:30 ELIZABET PASTRANA Feb 09, 2017 15:04 ELIZABET PASTRANA Feb 09, 2017 15:04
[2017-02-09] MEDS ORDERED: BISACODYL 10 MG SUPP PR PRN (16:30)
[2017-02-09 20:06] VITALS: BP 117/63; RESP 20
[2017-02-09] MEDS: TAMSULOSIN (SR) 0.4 MG CAP PO SCH (20:25)
[2017-02-09] MEDS: ROPINIROLE 0.25 MG TAB PO SCH (20:25)
[2017-02-09] MEDS: SENNA TAB PO SCH (20:26)
[2017-02-09] MEDS: ATORVASTATIN 10 MG TAB PO SCH (20:26)
[2017-02-09] MEDS: FAMOTIDINE 20 MG TAB PO SCH (20:26)
[2017-02-09] MEDS: LORAZEPAM 1 MG TAB PO PRN (22:40)
[2017-02-09 23:41] VITALS: BP 110/66; PULSE 80
[2017-02-10 02:18] VITALS: BP 135/78; RESP 18
[2017-02-10] MEDS: HYDROmorphONE 1 MG/ML SYG IV PRN ×6 (02:48→23:02)
[2017-02-10] MEDS: HYDROCODONE/APAP (5/325) TAB PO PRN ×3 (04:09→17:14)
[2017-02-10 08:15] VITALS: BP 112/68; RESP 18
[2017-02-10] MEDS: DOCUSATE SODIUM 250 MG CAP PO SCH (08:26)
[2017-02-10] MEDS: FOLIC ACID 1 MG TAB PO SCH (08:26)
[2017-02-10] MEDS: ARIPIPRAZOLE 5 MG TAB PO SCH (08:26)
[2017-02-10] MEDS: RISPERIDONE 2 MG TAB PO SCH ×2 (08:26→20:59)
[2017-02-10] MEDS: BUSPIRONE 10 MG TAB PO SCH ×3 (08:26→20:58)
[2017-02-10] MEDS: ZINC SULFATE 220 MG CAP PO SCH (08:26)
[2017-02-10] MEDS: SENNA TAB PO SCH ×2 (08:26→20:59)
[2017-02-10] MEDS: ASPIRIN (EC) 81 MG TAB PO SCH (08:26)
[2017-02-10] MEDS: clonAZEPAM 0.5 MG TAB PO PRN ×2 (08:26→21:00)
[2017-02-10] MEDS: POLYETHYLENE GLYCOL 17 GM PACKET PO SCH (08:27)
[2017-02-10] MEDS: PREGABALIN 25 MG CAP PO SCH ×2 (08:27→21:00)
[2017-02-10] MEDS: DULOXETINE 30 MG CAP DR PO SCH (08:27)
[2017-02-10] MEDS: HEPARIN 5,000 UNIT/0.5 ML VIAL SC SCH ×2 (08:35→21:06)
[2017-02-10] MEDS: oxyCODONE (CR) 10 MG TAB [oxyCONTIN] PO SCH ×2 (08:36→21:00)
[2017-02-10] MEDS: L ACIDOPHIL/B LACTIS/B LONGUM CAPSULE PO SCH ×2 (08:38→20:58)
[2017-02-10] MEDS: SODIUM HYPOCHLORITE 0.125% 473 ML BTL IRR SCH (10:59)
[2017-02-10] MEDS: COLLAGENASE 30 GM TUBE TOP SCH (10:59)
--- NOTE | 2017-02-10 13:58 | PN ---
Date/Time of Note Date/Time of Note DATE: 02/10/17 TIME: 13:55 Assessment/Plan Lines/Catheters IV Catheter Type (from [facility]): Saline Lock [facility] in Place (from [facility]): No Assessment/Plan Chief Complaint/Hosp Course 1. Sacral wound: s/p debridement 01/22, periwound redness improved, min drainage no odor -local care -frequent turning and repositioning -specialty bed -nutrition optimization -debridement prn 2. Sacral cellulitis: s/p debridement &abx 3. Leukocytopenia:resolved 4. Normocytic anemia: no acute bleed noted:s/p PRBC transfusion 01/19; stable 5. Thrombocytopenia 2/2 #2; resolved 6. H\ypoalbuminemia: likely 2/2 malnutrition, improved 8. UTI: s/p abx Patient seen and examined in collaboration with Dr. El Root Problems: Subjective 24 Hr Interval Summary Placement pending. No drainage from wounds. Only minimal discomfort from wounds. No fevers, chills, cp, palpitations, sob, cough, n/v/d, dysuria. Exam/Review of Systems Vital Signs Vitals Vital Signs Date Time Temp Pulse Resp B/P Pulse Ox O2 Delivery O2 Flow Rate FiO2 02/10/17 08:15 97.3 72 18 112/68 96 02/09/17 08:00 Room Air Intake and Output 02/09/17 02/09/17 02/10/17 15:00 23:00 07:00 Intake Total 1200 ml 480 ml Output Total 700 ml 1600 ml 800 ml Balance -700 ml -400 ml -320 ml Exam Free Text/Dictation Constitutional: alert, oriented Psych: labile mood Head: atraumatic, normocephalic Eyes: PERRL, nl lids, nl sclera ENMT: mucosa pink and moist, nl nasal mucosa & septum Neck: non-tender, supple Respiratory: normal air movement Cardiovascular: nl pulses, regular rate and rhythm Gastrointestinal: non-tender, soft Musculoskeletal: nl extremities to inspection Extremities: normal pulses Neurological: nl speech, nl strength Skin: other (sacral wound with pink wound bed, no drainage, no odor, healing well) Lymph: nl lymph nodes DORINA LITTLEJOHN NP Feb 10, 2017 13:58
[2017-02-10 16:02] VITALS: BP 140/81; RESP 18
[2017-02-10 19:46] VITALS: BP 124/66; RESP 20
[2017-02-10] MEDS: ROPINIROLE 0.25 MG TAB PO SCH (20:58)
[2017-02-10] MEDS: TAMSULOSIN (SR) 0.4 MG CAP PO SCH (20:58)
[2017-02-10] MEDS: FAMOTIDINE 20 MG TAB PO SCH (20:59)
[2017-02-10] MEDS: ATORVASTATIN 10 MG TAB PO SCH (20:59)
[2017-02-10] MEDS: LORAZEPAM 1 MG TAB PO PRN (22:06)
[2017-02-11] MEDS: HYDROCODONE/APAP (5/325) TAB PO PRN ×4 (01:33→21:53)
[2017-02-11 02:11] VITALS: BP 125/72; RESP 20
[2017-02-11] MEDS: HYDROmorphONE 1 MG/ML SYG IV PRN ×5 (03:15→19:24)
[2017-02-11 07:39] VITALS: BP 120/74; RESP 20
[2017-02-11] MEDS: HEPARIN 5,000 UNIT/0.5 ML VIAL SC SCH ×2 (09:00→21:01)
[2017-02-11] MEDS: POLYETHYLENE GLYCOL 17 GM PACKET PO SCH (09:00)
[2017-02-11] MEDS: COLLAGENASE 30 GM TUBE TOP SCH (09:13)
[2017-02-11] MEDS: FOLIC ACID 1 MG TAB PO SCH (09:13)
[2017-02-11] MEDS: ASPIRIN (EC) 81 MG TAB PO SCH (09:13)
[2017-02-11] MEDS: DULOXETINE 30 MG CAP DR PO SCH (09:13)
[2017-02-11] MEDS: SODIUM HYPOCHLORITE 0.125% 473 ML BTL IRR SCH (09:13)
[2017-02-11] MEDS: PREGABALIN 25 MG CAP PO SCH ×2 (09:14→20:57)
[2017-02-11] MEDS: BUSPIRONE 10 MG TAB PO SCH ×3 (09:14→20:57)
[2017-02-11] MEDS: SENNA TAB PO SCH ×2 (09:14→20:57)
[2017-02-11] MEDS: oxyCODONE (CR) 10 MG TAB [oxyCONTIN] PO SCH ×2 (09:14→20:57)
[2017-02-11] MEDS: L ACIDOPHIL/B LACTIS/B LONGUM CAPSULE PO SCH ×2 (09:14→20:57)
[2017-02-11] MEDS: ZINC SULFATE 220 MG CAP PO SCH (09:14)
[2017-02-11] MEDS: RISPERIDONE 2 MG TAB PO SCH ×2 (09:14→20:57)
[2017-02-11] MEDS: ARIPIPRAZOLE 5 MG TAB PO SCH (09:14)
[2017-02-11] MEDS: DOCUSATE SODIUM 250 MG CAP PO SCH (09:14)
--- NOTE | 2017-02-11 11:18 | PN ---
Date/Time of Note Date/Time of Note DATE: 02/11/17 TIME: 11:16 Assessment/Plan VTE Prophylaxis VTE Prophylaxis Intervention: heparin Lines/Catheters IV Catheter Type (from [facility]): Saline Lock Urinary Cath still in place: No Assessment/Plan Chief Complaint/Hosp Course Assessment and Plan: 1. Sacrococcygeal stage 4 decubitus ulcer with necrotic tissue. patient status post debridement. wound with e.coli. off antibitotics. Continue with wound care 2. Bilateral gluetal cellulitis. off antibiotics 3. UTI with enterobacter cloacae. off abx. improved 4. ILYA. monitor renal panel. stable 5. BPH. continue on tamsulosin. stable at present 6. Debility. Continue with physical therapy DISPO/PLAN: continue supportive care. continue wound care. waiting for snf placement. Discussed plan of care with Dr. Jordan Problems: Subjective 24 Hr Interval Summary Free Text/Dictation reports good pain control at this time. comfortable at present Exam/Review of Systems Vital Signs Vitals Vital Signs Date Time Temp Pulse Resp B/P Pulse Ox O2 Delivery O2 Flow Rate FiO2 02/11/17 07:39 97.6 69 20 120/74 98 02/09/17 08:00 Room Air Intake and Output 02/10/17 02/10/17 02/11/17 15:00 23:00 07:00 Intake Total 720 ml Output Total 1200 ml Balance -480 ml Exam Constitutional: alert, oriented Head: normocephalic Eyes: nl conjunctiva Respiratory: normal air movement Cardiovascular: nl pulses Gastrointestinal: non-tender, soft Musculoskeletal: No nl gait and stance Extremities: No edema Skin: other (sacral ulcer) Medications Medications Current Medications Aripiprazole (Abilify) 5 mg DAILY PO Last administered on 02/11/17 09:14; Admin Dose 5 MG; Start 01/18/17 at 09:00 Aspirin (Halfprin) 81 mg DAILY PO Last administered on 02/11/17 09:13; Admin Dose 81 MG; Start 01/18/17 at 09:00 Buspirone HCl (Buspar) 10 mg TID PO Last administered on 02/11/17 09:14; Admin Dose 10 MG; Start 01/18/17 at 09:00 Clonazepam (Klonopin) 1 mg BID PRN PO ANXIETY Last administered on 02/10/17 21: 00; Admin Dose 1 MG; Start 01/18/17 at 00:30 Duloxetine HCl (Cymbalta) 120 mg DAILY PO Last administered on 02/11/17 09:13; Admin Dose 120 MG; Start 01/18/17 at 09:00 Folic Acid (Folic Acid) 1 mg DAILY PO Last administered on 02/11/17 09:13; Admin Dose 1 MG; Start 01/18/17 at 09:00 Pregabalin (Lyrica) 50 mg BID PO Last administered on 02/11/17 09:14; Admin Dose 50 MG; Start 01/18/17 at 09:00 Ropinirole HCl (Requip) 0.25 mg HS PO Last administered on 02/10/17 20:58; Admin Dose 0.25 MG; Start 01/18/17 at 21:00 Tamsulosin HCl (Flomax) 0.4 mg HS PO Last administered on 02/10/17 20:58; Admin Dose 0.4 MG; Start 01/18/17 at 21:00 Atorvastatin Calcium (Lipitor) 5 mg QHS PO Last administered on 02/10/17 20:59 ; Admin Dose 5 MG; Start 01/18/17 at 21:00 Risperidone (Risperdal) 2 mg BID PO Last administered on 02/11/17 09:14; Admin Dose 2 MG; Start 01/18/17 at 00:30 Hydromorphone HCl (Dilaudid) 0.5 mg Q4H PRN IV PAIN Last administered on 07:29; Admin Dose 0.5 MG; Start 01/18/17 at 00:30 Morphine Sulfate (morphine) 4 mg Q4H PRN IV pain Last administered on 19:33; Admin Dose 4 MG; Start 01/18/17 at 14:00 Docusate Sodium (Colace) 250 mg DAILY PO Last administered on 02/11/17 09:14; Admin Dose 250 MG; Start 01/19/17 at 09:00 Oxycodone HCl (Oxycontin) 10 mg BID PO Last administered on 02/11/17 09:14; Admin Dose 10 MG; Start 01/18/17 at 14:23 Zinc Sulfate (Zinc Sulfate) 220 mg DAILY PO Last administered on 02/11/17 09:14 ; Admin Dose 220 MG; Start 01/20/17 at 13:00 Polyethylene Glycol (Miralax) 8.5 gm DAILY PO Last administered on 02/10/17 08: 27; Admin Dose 8.5 GM; Start 01/21/17 at 09:00 Zolpidem Tartrate (Ambien) 5 mg HS PRN PO INSOMNIA Last administered on 21:43; Admin Dose 5 MG; Start 01/21/17 at 23:30 Sodium Hypochlorite (Dakin'S (1/4 Strength)) 1 applic DAILY IRR Last administered on 02/11/17 09:13; Admin Dose 1 APPLIC; Start 01/23/17 at 09:00 Collagenase (Santyl) 1 applic DAILY TOP Last administered on 02/11/17 09:13; Admin Dose 1 APPLIC; Start 01/23/17 at 09:00 Lactobacillus Acidophilus (Florajen3 Capsule) 1 each BID PO Last administered on 02/11/17 09:14; Admin Dose 1 EACH; Start 01/24/17 at 21:00 Acetaminophen/ Hydrocodone Bitart ([place] (5/325)) 1 tab Q4H PRN PO PAIN Last administered on 02/11/17 01:33; Admin Dose 1 TAB; Start 01/26/17 at 14:30 Lorazepam (Ativan) 1 mg QHS PRN PO INSOMNIA Last administered on 02/10/17 22:06 ; Admin Dose 1 MG; Start 01/27/17 at 21:30 Heparin Sodium (Porcine) (Heparin (5000 Units/0.5 ml)) 5,000 unit BID SC Last administered on 02/10/17 21:06; Admin Dose 5,000 UNIT; Start 01/30/17 at 21:00 Famotidine (Pepcid) 20 mg HS PO Last administered on 02/10/17 20:59; Admin Dose 20 MG; Start 01/30/17 at 21:00 Hydralazine HCl (Apresoline) 10 mg Q6H PRN IV SBP greater than 160; Start 01/30 at 12:30 Ondansetron HCl (Zofran Inj) 4 mg Q6H PRN IV NAUSEA AND/OR VOMITING; Start at 18:30 Bisacodyl (Dulcolax Supp) 10 mg DAILY PRN [place] CONSTIPATION; Start 02/09/17 at 16: 30 Senna (Senokot) 2 tab BID PO Last administered on 02/11/17t 09:14; Admin Dose 2 TAB; Start 02/09/17 at 21:00 ELIZABET PASTRANA Feb 11, 2017 11:18
[2017-02-11 14:31] VITALS: BP 109/67; RESP 20
[2017-02-11 19:51] VITALS: BP 127/71; RESP 19
[2017-02-11] MEDS: ROPINIROLE 0.25 MG TAB PO SCH (20:57)
[2017-02-11] MEDS: FAMOTIDINE 20 MG TAB PO SCH (20:57)
[2017-02-11] MEDS: TAMSULOSIN (SR) 0.4 MG CAP PO SCH (20:57)
[2017-02-11] MEDS: ATORVASTATIN 10 MG TAB PO SCH (20:57)
[2017-02-11] MEDS: clonAZEPAM 0.5 MG TAB PO PRN (21:03)
[2017-02-12] MEDS: HYDROmorphONE 1 MG/ML SYG IV PRN ×6 (02:24→23:24)
[2017-02-12] MEDS: LORAZEPAM 1 MG TAB PO PRN ×2 (02:24→23:28)
[2017-02-12 02:38] VITALS: BP 134/72; RESP 19
[2017-02-12 08:08] VITALS: BP 108/69; RESP 20
[2017-02-12] MEDS: POLYETHYLENE GLYCOL 17 GM PACKET PO SCH ×2 (09:00→11:43)
[2017-02-12] MEDS: BUSPIRONE 10 MG TAB PO SCH ×3 (09:29→20:20)
[2017-02-12] MEDS: FOLIC ACID 1 MG TAB PO SCH (09:29)
[2017-02-12] MEDS: PREGABALIN 25 MG CAP PO SCH ×2 (09:29→20:20)
[2017-02-12] MEDS: DULOXETINE 30 MG CAP DR PO SCH (09:30)
[2017-02-12] MEDS: SENNA TAB PO SCH ×2 (09:30→20:21)
[2017-02-12] MEDS: oxyCODONE (CR) 10 MG TAB [oxyCONTIN] PO SCH ×2 (09:30→20:24)
[2017-02-12] MEDS: ASPIRIN (EC) 81 MG TAB PO SCH (09:31)
[2017-02-12] MEDS: DOCUSATE SODIUM 250 MG CAP PO SCH (09:31)
[2017-02-12] MEDS: RISPERIDONE 2 MG TAB PO SCH ×2 (09:31→20:20)
[2017-02-12] MEDS: ARIPIPRAZOLE 5 MG TAB PO SCH (09:31)
[2017-02-12] MEDS: ZINC SULFATE 220 MG CAP PO SCH (09:31)
[2017-02-12] MEDS: COLLAGENASE 30 GM TUBE TOP SCH (09:32)
[2017-02-12] MEDS: SODIUM HYPOCHLORITE 0.125% 473 ML BTL IRR SCH (09:32)
[2017-02-12] MEDS: HEPARIN 5,000 UNIT/0.5 ML VIAL SC SCH ×2 (09:41→20:22)
[2017-02-12] MEDS: clonAZEPAM 0.5 MG TAB PO PRN ×2 (09:45→20:24)
[2017-02-12] MEDS: L ACIDOPHIL/B LACTIS/B LONGUM CAPSULE PO SCH ×2 (10:05→20:28)
--- NOTE | 2017-02-12 10:14 | PN ---
Date/Time of Note Date/Time of Note DATE: 02/12/17 TIME: 10:11 Assessment/Plan Lines/Catheters IV Catheter Type (from [facility]): Saline Lock [facility] in Place (from [facility]): No Assessment/Plan Chief Complaint/Hosp Course 1. Sacral wound: s/p debridement 01/22, periwound redness improved, min drainage no odor; healing well -continue local care -frequent turning and repositioning -specialty bed -nutrition optimization -debridement prn 2. Sacral cellulitis: s/p debridement &abx 3. Leukocytopenia:resolved 4. Normocytic anemia: no acute bleed noted:s/p PRBC transfusion 01/19; stable 5. Thrombocytopenia 2/2 #2; resolved 6. Hypoalbuminemia: likely 2/2 malnutrition, improved 8. UTI: s/p abx Patient seen and examined in collaboration with Dr. El Root. Thank you Problems: Subjective 24 Hr Interval Summary Sacral wound with scant drainage. No c/o pain or discomfort from wound. Back pain intermittent. No fevers, chills, gore, dizziness, cp, n/v/d/ dysuria.Placement pending Exam/Review of Systems Vital Signs Vitals Vital Signs Date Time Temp Pulse Resp B/P Pulse Ox O2 Delivery O2 Flow Rate FiO2 02/12/17 08:08 97.5 75 20 108/69 98 02/09/17 08:00 Room Air Intake and Output 02/11/17 02/11/17 02/12/17 15:00 23:00 07:00 Intake Total 2540 ml 550 ml Output Total 3075 ml 1550 ml Balance -535 ml -1000 ml Exam Free Text/Dictation Constitutional: alert, oriented Psych: labile mood Head: atraumatic, normocephalic Eyes: PERRL, nl lids, nl sclera ENMT: mucosa pink and moist, nl nasal mucosa & septum Neck: non-tender, supple Respiratory: normal air movement Cardiovascular: nl pulses, regular rate and rhythm Gastrointestinal: non-tender, soft Musculoskeletal: nl extremities to inspection Extremities: normal pulses Neurological: nl speech, nl strength Skin: other (sacral wound with pink wound bed, no drainage, no odor, healing well) Lymph: nl lymph nodes DORINA LITTLEJOHN NP Feb 12, 2017 10:14
[2017-02-12] MEDS: HYDROCODONE/APAP (5/325) TAB PO PRN ×2 (13:19→17:12)
--- NOTE | 2017-02-12 13:28 | PN ---
Date/Time of Note Date/Time of Note DATE: 02/12/17 TIME: 13:24 Assessment/Plan VTE Prophylaxis VTE Prophylaxis Intervention: heparin Lines/Catheters IV [facility] Type (from [facility]): Saline Lock Urinary Cath still in place: No Assessment/Plan Chief Complaint/Hosp Course Assessment and Plan: 1. Sacrococcygeal stage 4 decubitus ulcer with necrotic tissue. patient status post debridement. wound with e.coli. off antibitotics. Continue with wound care 2. Bilateral gluetal cellulitis. off antibiotics 3. UTI with enterobacter cloacae. off abx. improved 4. ILYA. monitor renal panel. stable 5. BPH. continue on tamsulosin. stable at present 6. Debility. Continue with physical therapy DISPO/PLAN: continue supportive care. continue wound care. waiting for snf placement. check AM labs Discussed plan of care with Dr. Jordan Problems: Subjective 24 Hr Interval Summary Free Text/Dictation Comfortable at present. Does report good pain control with analgesics. Exam/Review of Systems Vital Signs Vitals Vital Signs Date Time Temp Pulse Resp B/P Pulse Ox O2 Delivery O2 Flow Rate FiO2 02/12/17 08:08 97.5 75 20 108/69 98 02/09/17 08:00 Room Air Intake and Output 02/11/17 02/11/17 02/12/17 14:59 22:59 06:59 Intake Total 2540 ml 550 ml Output Total 3075 ml 1550 ml Balance -535 ml -1000 ml Exam Constitutional: alert, oriented, no s/s of distress Head: normocephalic Eyes: nl conjunctiva Respiratory: normal air movement Cardiovascular: nl pulses Gastrointestinal: non-tender, soft Musculoskeletal: No nl gait and stance Extremities: No edema Skin: other (sacral ulcer) stable Medications Medications Current Medications Aripiprazole (Abilify) 5 mg DAILY PO Last administered on 02/12/17 09:31; Admin Dose 5 MG; Start 01/18/17 at 09:00 Aspirin (Halfprin) 81 mg DAILY PO Last administered on 02/12/17 09:31; Admin Dose 81 MG; Start 01/18/17 at 09:00 Buspirone HCl (Buspar) 10 mg TID PO Last administered on 02/12/17 13:20; Admin Dose 10 MG; Start 01/18/17 at 09:00 Clonazepam (Klonopin) 1 mg BID PRN PO ANXIETY Last administered on 02/12/17 09: 45; Admin Dose 1 MG; Start 01/18/17 at 00:30 Duloxetine HCl (Cymbalta) 120 mg DAILY PO Last administered on 02/12/17 09:30; Admin Dose 120 MG; Start 01/18/17 at 09:00 Folic Acid (Folic Acid) 1 mg DAILY PO Last administered on 02/12/17 09:29; Admin Dose 1 MG; Start 01/18/17 at 09:00 Pregabalin (Lyrica) 50 mg BID PO Last administered on 02/12/17 09:29; Admin Dose 50 MG; Start 01/18/17 at 09:00 Ropinirole HCl (Requip) 0.25 mg HS PO Last administered on 02/11/17 20:57; Admin Dose 0.25 MG; Start 01/18/17 at 21:00 Tamsulosin HCl (Flomax) 0.4 mg HS PO Last administered on 02/11/17 20:57; Admin Dose 0.4 MG; Start 01/18/17 at 21:00 Atorvastatin Calcium (Lipitor) 5 mg QHS PO Last administered on 02/11/17 20:57 ; Admin Dose 5 MG; Start 01/18/17 at 21:00 Risperidone (Risperdal) 2 mg BID PO Last administered on 02/12/17 09:31; Admin Dose 2 MG; Start 01/18/17 at 00:30 Hydromorphone HCl (Dilaudid) 0.5 mg Q4H PRN IV PAIN Last administered on 11:37; Admin Dose 0.5 MG; Start 01/18/17 at 00:30 Morphine Sulfate (morphine) 4 mg Q4H PRN IV pain Last administered on 19:33; Admin Dose 4 MG; Start 01/18/17 at 14:00 Docusate Sodium (Colace) 250 mg DAILY PO Last administered on 02/12/17 09:31; Admin Dose 250 MG; Start 01/19/17 at 09:00 Oxycodone HCl (Oxycontin) 10 mg BID PO Last administered on 02/12/17 09:30; Admin Dose 10 MG; Start 01/18/17 at 14:23 Zinc Sulfate (Zinc Sulfate) 220 mg DAILY PO Last administered on 02/12/17 09:31 ; Admin Dose 220 MG; Start 01/20/17 at 13:00 Polyethylene Glycol (Miralax) 8.5 gm DAILY PO Last administered on 02/12/17 11: 43; Admin Dose 8.5 GM; Start 01/21/17 at 09:00 Zolpidem Tartrate (Ambien) 5 mg HS PRN PO INSOMNIA Last administered on 21:43; Admin Dose 5 MG; Start 01/21/17 at 23:30 Sodium Hypochlorite (Dakin'S (1/4 Strength)) 1 applic DAILY IRR Last administered on 02/12/17 09:32; Admin Dose 1 APPLIC; Start 01/23/17 at 09:00 Collagenase (Santyl) 1 applic DAILY TOP Last administered on 02/12/17 09:32; Admin Dose 1 APPLIC; Start 01/23/17 at 09:00 Lactobacillus Acidophilus (Florajen3 Capsule) 1 each BID PO Last administered on 02/12/17 10:05; Admin Dose 1 EACH; Start 01/24/17 at 21:00 Acetaminophen/ Hydrocodone Bitart ([place] (5/325)) 1 tab Q4H PRN PO PAIN Last administered on 02/12/17 13:19; Admin Dose 1 TAB; Start 01/26/17 at 14:30 Lorazepam (Ativan) 1 mg QHS PRN PO INSOMNIA Last administered on 02/12/17 02:24 ; Admin Dose 1 MG; Start 01/27/17 at 21:30 Heparin Sodium (Porcine) (Heparin (5000 Units/0.5 ml)) 5,000 unit BID SC Last administered on 02/12/17 09:41; Admin Dose 5,000 UNIT; Start 01/30/17 at 21:00 Famotidine (Pepcid) 20 mg HS PO Last administered on 02/11/17 20:57; Admin Dose 20 MG; Start 01/30/17 at 21:00 Hydralazine HCl (Apresoline) 10 mg Q6H PRN IV SBP greater than 160; Start 01/30 at 12:30 Ondansetron HCl (Zofran Inj) 4 mg Q6H PRN IV NAUSEA AND/OR VOMITING; Start at 18:30 Bisacodyl (Dulcolax Supp) 10 mg DAILY PRN [place] CONSTIPATION; Start 02/09/17 at 16: 30 Senna (Senokot) 2 tab BID PO Last administered on 02/12/17t 09:30; Admin Dose 2 TAB; Start 02/09/17 at 21:00 ELIZABET PASTRANA Feb 12, 2017 13:28
[2017-02-12 14:11] VITALS: BP 116/79; RESP 20
[2017-02-12 19:57] VITALS: BP 114/84; RESP 18
[2017-02-12] MEDS: FAMOTIDINE 20 MG TAB PO SCH (20:20)
[2017-02-12] MEDS: ATORVASTATIN 10 MG TAB PO SCH (20:20)
[2017-02-12] MEDS: TAMSULOSIN (SR) 0.4 MG CAP PO SCH (20:20)
[2017-02-12] MEDS: ROPINIROLE 0.25 MG TAB PO SCH (20:28)
[2017-02-13 02:00] VITALS: BP 123/76; RESP 18
[2017-02-13] MEDS: HYDROCODONE/APAP (5/325) TAB PO PRN ×4 (03:20→18:46)
[2017-02-13] MEDS: HYDROmorphONE 1 MG/ML SYG IV PRN ×5 (04:48→21:47)
[2017-02-13 07:43] VITALS: BP 110/68; RESP 20
[2017-02-13] MEDS: BUSPIRONE 10 MG TAB PO SCH ×3 (08:37→21:45)
[2017-02-13] MEDS: ZINC SULFATE 220 MG CAP PO SCH (08:37)
[2017-02-13] MEDS: DULOXETINE 30 MG CAP DR PO SCH (08:37)
[2017-02-13] MEDS: FOLIC ACID 1 MG TAB PO SCH (08:37)
[2017-02-13] MEDS: ARIPIPRAZOLE 5 MG TAB PO SCH (08:37)
[2017-02-13] MEDS: DOCUSATE SODIUM 250 MG CAP PO SCH (08:37)
[2017-02-13] MEDS: RISPERIDONE 2 MG TAB PO SCH ×2 (08:37→21:46)
[2017-02-13] MEDS: ASPIRIN (EC) 81 MG TAB PO SCH (08:37)
[2017-02-13] MEDS: L ACIDOPHIL/B LACTIS/B LONGUM CAPSULE PO SCH ×2 (08:38→21:46)
[2017-02-13] MEDS: SENNA TAB PO SCH ×2 (08:38→22:34)
[2017-02-13] MEDS: PREGABALIN 25 MG CAP PO SCH ×2 (08:39→21:46)
[2017-02-13] MEDS: POLYETHYLENE GLYCOL 17 GM PACKET PO SCH (08:39)
[2017-02-13] MEDS: oxyCODONE (CR) 10 MG TAB [oxyCONTIN] PO SCH ×2 (08:40→21:45)
[2017-02-13] MEDS: SODIUM HYPOCHLORITE 0.125% 473 ML BTL IRR SCH (08:41)
[2017-02-13] MEDS: COLLAGENASE 30 GM TUBE TOP SCH (08:41)
[2017-02-13] MEDS: HEPARIN 5,000 UNIT/0.5 ML VIAL SC SCH ×2 (08:50→21:54)
[2017-02-13] MEDS: clonAZEPAM 0.5 MG TAB PO PRN ×2 (08:55→22:34)
--- NOTE | 2017-02-13 09:50 | PN ---
Date/Time of Note Date/Time of Note DATE: 02/13/17 TIME: 09:48 Assessment/Plan VTE Prophylaxis VTE Prophylaxis Intervention: heparin Lines/Catheters IV Catheter Type (from [facility]): Saline Lock Urinary Cath still in place: No Assessment/Plan Chief Complaint/Hosp Course 1. Sacrococcygeal stage IV decubitus ulcer with necrotic tissue. Infected. Status post debridement. Wound culture positive for E. coli. Status post antimicrobials as per infectious diseases. 2. Bilateral gluteal cellulitis. Local wound care. Status post antimicrobials as per infectious diseases. 3. Urinary tract infection. Urine culture positive for Enterobacter cloacae. Status post antimicrobials as per infectious diseases. 4. Acute nonoliguric kidney injury. Unknown baseline creatinine. Continue to monitor renal function closely. 5. Normocytic, normochromic anemia. Underlying iron deficiency. Continue iron supplements. 6. Benign prostatic hypertrophy. Continue tamsulosin. 7. Debility. Continue physical therapy. 8. Possible underlying psychiatric disorder. Continue mood stabilizers. 9. Fluids, electrolytes, and nutrition. Regular diet. 10. DVT prophylaxis. Subcutaneous heparin. 11. Gastrointestinal prophylaxis. Histamine 2 receptor blockers. 12. Plan. Continue local wound care. Continue repositioning. Await placement. Case discussed with Dr. Garcia. Problems: Subjective 24 Hr Interval Summary Free Text/Dictation No changes in status. Awaiting placement. Exam/Review of Systems Vital Signs Vitals Vital Signs Date Time Temp Pulse Resp B/P Pulse Ox O2 Delivery O2 Flow Rate FiO2 02/13/17 07:43 97.8 72 20 110/68 98 02/09/17 08:00 Room Air Intake and Output 02/12/17 02/12/17 02/13/17 14:59 22:59 06:59 Intake Total 2140 ml 850 ml Output Total 2750 ml 2300 ml Balance -610 ml -1450 ml Exam General: Adequately build 56 year-old male lying in bed in no apparent distress. HEENT: Normocephalic, atraumatic. Eyes: Anicteric sclerae, conjunctivae clear. ENT: Nasal septum midline, oral mucosa moist. Neck supple, no JVD noticed. Respiratory: Bilaterally diminished breath sounds. No use of accessory muscles of respiration. No adventitious breath sounds. Cardiovascular: S1, S2 heard. No murmurs or gallops. Abdomen: Soft, nontender, and nondistended. Bowel sounds positive in all 4 quadrants. Genitourinary: Deferred. Extremities: No cyanosis, no clubbing, no edema. Peripheral pulses palpable. Neurologic: Cranial nerves II through XII grossly intact. The patient is awake, alert, and oriented. Medications Medications Current Medications Aripiprazole (Abilify) 5 mg DAILY PO Last administered on 02/13/17 08:37; Admin Dose 5 MG; Start 01/18/17 at 09:00 Aspirin (Halfprin) 81 mg DAILY PO Last administered on 02/13/17 08:37; Admin Dose 81 MG; Start 01/18/17 at 09:00 Buspirone HCl (Buspar) 10 mg TID PO Last administered on 02/13/17 08:37; Admin Dose 10 MG; Start 01/18/17 at 09:00 Clonazepam (Klonopin) 1 mg BID PRN PO ANXIETY Last administered on 02/13/17 08: 55; Admin Dose 1 MG; Start 01/18/17 at 00:30 Duloxetine HCl (Cymbalta) 120 mg DAILY PO Last administered on 02/13/17 08:37; Admin Dose 120 MG; Start 01/18/17 at 09:00 Folic Acid (Folic Acid) 1 mg DAILY PO Last administered on 02/13/17 08:37; Admin Dose 1 MG; Start 01/18/17 at 09:00 Pregabalin (Lyrica) 50 mg BID PO Last administered on 02/13/17 08:39; Admin Dose 50 MG; Start 01/18/17 at 09:00 Ropinirole HCl (Requip) 0.25 mg HS PO Last administered on 02/11/17 20:57; Admin Dose 0.25 MG; Start 01/18/17 at 21:00 Tamsulosin HCl (Flomax) 0.4 mg HS PO Last administered on 02/12/17 20:20; Admin Dose 0.4 MG; Start 01/18/17 at 21:00 Atorvastatin Calcium (Lipitor) 5 mg QHS PO Last administered on 02/12/17 20:20 ; Admin Dose 5 MG; Start 01/18/17 at 21:00 Risperidone (Risperdal) 2 mg BID PO Last administered on 02/13/17 08:37; Admin Dose 2 MG; Start 01/18/17 at 00:30 Hydromorphone HCl (Dilaudid) 0.5 mg Q4H PRN IV PAIN Last administered on 08:55; Admin Dose 0.5 MG; Start 01/18/17 at 00:30 Morphine Sulfate (morphine) 4 mg Q4H PRN IV pain Last administered on 19:33; Admin Dose 4 MG; Start 01/18/17 at 14:00 Docusate Sodium (Colace) 250 mg DAILY PO Last administered on 02/13/17 08:37; Admin Dose 250 MG; Start 01/19/17 at 09:00 Oxycodone HCl (Oxycontin) 10 mg BID PO Last administered on 02/13/17 08:40; Admin Dose 10 MG; Start 01/18/17 at 14:23 Zinc Sulfate (Zinc Sulfate) 220 mg DAILY PO Last administered on 02/13/17 08:37 ; Admin Dose 220 MG; Start 01/20/17 at 13:00 Polyethylene Glycol (Miralax) 8.5 gm DAILY PO Last administered on 02/13/17 08: 39; Admin Dose 8.5 GM; Start 01/21/17 at 09:00 Zolpidem Tartrate (Ambien) 5 mg HS PRN PO INSOMNIA Last administered on 21:43; Admin Dose 5 MG; Start 01/21/17 at 23:30 Sodium Hypochlorite (Dakin'S (1/4 Strength)) 1 applic DAILY IRR Last administered on 02/13/17 08:41; Admin Dose 1 APPLIC; Start 01/23/17 at 09:00 Collagenase (Santyl) 1 applic DAILY TOP Last administered on 02/13/17 08:41; Admin Dose 1 APPLIC; Start 01/23/17 at 09:00 Lactobacillus Acidophilus (Florajen3 Capsule) 1 each BID PO Last administered on 02/13/17 08:38; Admin Dose 1 EACH; Start 01/24/17 at 21:00 Acetaminophen/ Hydrocodone Bitart ([place] (5/325)) 1 tab Q4H PRN PO PAIN Last administered on 02/13/17 03:20; Admin Dose 1 TAB; Start 01/26/17 at 14:30 Lorazepam (Ativan) 1 mg QHS PRN PO INSOMNIA Last administered on 02/12/17 23:28 ; Admin Dose 1 MG; Start 01/27/17 at 21:30 Heparin Sodium (Porcine) (Heparin (5000 Units/0.5 ml)) 5,000 unit BID SC Last administered on 02/13/17 08:50; Admin Dose 5,000 UNIT; Start 01/30/17 at 21:00 Famotidine (Pepcid) 20 mg HS PO Last administered on 02/12/17 20:20; Admin Dose 20 MG; Start 01/30/17 at 21:00 Hydralazine HCl (Apresoline) 10 mg Q6H PRN IV SBP greater than 160; Start 01/30 at 12:30 Ondansetron HCl (Zofran Inj) 4 mg Q6H PRN IV NAUSEA AND/OR VOMITING; Start at 18:30 Bisacodyl (Dulcolax Supp) 10 mg DAILY PRN [place] CONSTIPATION; Start 02/09/17 at 16: 30 Senna (Senokot) 2 tab BID PO Last administered on 02/12/17 20:21; Admin Dose 2 TAB; Start 02/09/17 at 21:00 BELEN DIAZ NP Feb 13, 2017 09:50 BELEN DIAZ NP Feb 13, 2017 09:50
[2017-02-13] MEDS: FERROUS SULFATE (EC) 325 MG TAB PO SCH ×2 (10:34→21:47)
--- NOTE | 2017-02-13 11:07 | PN ---
Date/Time of Note Date/Time of Note DATE: 02/13/17 TIME: 11:05 Assessment/Plan Lines/Catheters IV Catheter Type (from [facility]): Saline Lock [facility] in Place (from [facility]): No Assessment/Plan Chief Complaint/Hosp Course 1. Sacral wound: s/p debridement 01/22, periwound redness improved, min drainage no odor; healing well -continue local care -frequent turning and repositioning -specialty bed -nutrition optimization 2. Sacral cellulitis: s/p debridement &abx 3. Leukocytopenia:resolved 4. Normocytic anemia: no acute bleed noted:s/p PRBC transfusion 01/19; stable 5. Thrombocytopenia 2/2 #2; resolved 6. Hypoalbuminemia: likely 2/2 malnutrition, improved 8. UTI: s/p abx Patient seen and examined in collaboration with Dr. El Root. Thank you Problems: Subjective 24 Hr Interval Summary Still pending placement. Feels ok. Continues to have intermittent back pain- chronic issue. No drainage from wounds. No fevers, chills, gore, dizziness, cp, sob, cough, n/v/d/dysuria. Exam/Review of Systems Vital Signs Vitals Vital Signs Date Time Temp Pulse Resp B/P Pulse Ox O2 Delivery O2 Flow Rate FiO2 02/13/17 07:43 97.8 72 20 110/68 98 02/09/17 08:00 Room Air Intake and Output 02/12/17 02/12/17 02/13/17 15:00 23:00 07:00 Intake Total 2140 ml 850 ml Output Total 2750 ml 2300 ml Balance -610 ml -1450 ml Exam Free Text/Dictation Constitutional: alert, oriented Psych: labile mood Head: atraumatic, normocephalic Eyes: PERRL, nl lids, nl sclera ENMT: mucosa pink and moist, nl nasal mucosa & septum Neck: non-tender, supple Respiratory: normal air movement Cardiovascular: nl pulses, regular rate and rhythm Gastrointestinal: non-tender, soft Musculoskeletal: nl extremities to inspection Extremities: normal pulses Neurological: nl speech, nl strength Skin: other (sacral wound with pink wound bed, min maceration periwound, no drainage, no odor, healing well) Lymph: nl lymph nodes DORINA LITTLEJOHN NP Feb 13, 2017 11:07
[2017-02-13 13:17] VITALS: BP 106/67; RESP 20
[2017-02-13 14:07] LABS: BASOPHILS % 0.6 % (0.0-2.0); EOSINOPHILS # 0.2 10^3/ul (0.0-0.5); EOSINOPHILS % 4.5 % (0.0-7.0); HEMOGLOBIN 12.1 g/dl (14.0-18.0); LYMPHOCYTES # 0.9 10^3/ul (0.8-2.9); LYMPHOCYTES % 25.7 % (15.0-51.0); MEAN CORPUSCULAR HEMOGLOBIN 32.1 pg (29.0-33.0); MEAN CORPUSCULAR HGB CONC 33.6 g/dl (32.0-37.0); MEAN CORPUSCULAR VOLUME 95.5 fl (82.0-101.0); MEAN PLATELET VOLUME 10.4 fl (7.4-10.4); MONOCYTE # 0.3 10^3/ul (0.3-0.9); MONOCYTES % 8.5 % (0.0-11.0); NEUTROPHILS % 60.4 % (39.0-77.0); PLATELET COUNT 106 10^3/UL (140-415); RED BLOOD COUNT 3.77 10^6/ul (4.70-6.10); RED CELL DISTRIBUTION WIDTH 13.6 % (11.5-14.5); WHITE BLOOD COUNT 3.3 10^3/ul (4.8-10.8)
[2017-02-13 14:35] LABS: CALCIUM 8.9 mg/dl (8.4-10.2); CREATININE 1.75 mg/dl (0.61-1.24); POTASSIUM 4.4 mmol/L (3.5-5.1)
[2017-02-13 19:51] VITALS: BP 116/67; RESP 18
[2017-02-13] MEDS: FAMOTIDINE 20 MG TAB PO SCH (21:46)
[2017-02-13] MEDS: ATORVASTATIN 10 MG TAB PO SCH (21:46)
[2017-02-13] MEDS: TAMSULOSIN (SR) 0.4 MG CAP PO SCH (21:46)
[2017-02-13] MEDS: LORAZEPAM 1 MG TAB PO PRN (22:34)
[2017-02-13] MEDS: ROPINIROLE 0.25 MG TAB PO SCH (22:35)
[2017-02-14 02:00] VITALS: BP 112/64; RESP 18
[2017-02-14] MEDS: HYDROmorphONE 1 MG/ML SYG IV PRN ×5 (02:09→18:44)
[2017-02-14] MEDS: HYDROCODONE/APAP (5/325) TAB PO PRN ×3 (04:12→19:49)
--- NOTE | 2017-02-14 07:07 | PN ---
Date/Time of Note Date/Time of Note DATE: 02/14/17 TIME: 07:07 Assessment/Plan VTE Prophylaxis VTE Prophylaxis Intervention: heparin Lines/Catheters IV Catheter Type (from [facility]): Saline Lock Urinary Cath still in place: No Assessment/Plan Chief Complaint/Hosp Course 1. Sacrococcygeal stage IV decubitus ulcer with necrotic tissue. Infected. Status post debridement. Wound culture positive for E. coli. Status post antimicrobials as per infectious diseases. 2. Bilateral gluteal cellulitis. Local wound care. Status post antimicrobials as per infectious diseases. 3. Urinary tract infection. Urine culture positive for Enterobacter cloacae. Status post antimicrobials as per infectious diseases. 4. Acute nonoliguric kidney injury. Unknown baseline creatinine. Continue to monitor renal function closely. 5. Normocytic, normochromic anemia. Underlying iron deficiency. Continue iron supplements. 6. Benign prostatic hypertrophy. Continue tamsulosin. 7. Debility. Continue physical therapy. 8. Possible underlying psychiatric disorder. Continue mood stabilizers. 9. Fluids, electrolytes, and nutrition. Regular diet. 10. DVT prophylaxis. Subcutaneous heparin. 11. Gastrointestinal prophylaxis. Histamine 2 receptor blockers. 12. Plan. Continue local wound care. Continue repositioning. Await placement. Case discussed with Dr. Garcia. Problems: Subjective 24 Hr Interval Summary Free Text/Dictation No changes in status. Exam/Review of Systems Vital Signs Vitals Vital Signs Date Time Temp Pulse Resp B/P Pulse Ox O2 Delivery O2 Flow Rate FiO2 02/14/17 02:00 98.2 78 18 112/64 95 Intake and Output 02/13/17 02/13/17 02/14/17 15:00 23:00 07:00 Intake Total 2680 ml 1000 ml Output Total 3200 ml 1850 ml Balance -520 ml -850 ml Exam General: Adequately build 56 year-old male lying in bed in no apparent distress. HEENT: Normocephalic, atraumatic. Eyes: Anicteric sclerae, conjunctivae clear. ENT: Nasal septum midline, oral mucosa moist. Neck supple, no JVD noticed. Respiratory: Bilaterally diminished breath sounds. No use of accessory muscles of respiration. No adventitious breath sounds. Cardiovascular: S1, S2 heard. No murmurs or gallops. Abdomen: Soft, nontender, and nondistended. Bowel sounds positive in all 4 quadrants. Genitourinary: Deferred. Extremities: No cyanosis, no clubbing, no edema. Peripheral pulses palpable. Neurologic: Cranial nerves II through XII grossly intact. The patient is awake, alert, and oriented. Results Result Diagram: 02/13/17 1332 02/13/17 1332 Results 24 hrs Laboratory Tests Test 02/13/17 13:32 White Blood Count 3.3 #L Red Blood Count 3.77 L Hemoglobin 12.1 L Hematocrit 36.0 L Mean Corpuscular Volume 95.5 Mean Corpuscular Hemoglobin 32.1 Mean Corpuscular Hemoglobin Concent 33.6 Red Cell Distribution Width 13.6 Platelet Count 106 L Mean Platelet Volume 10.4 Neutrophils % 60.4 Lymphocytes % 25.7 Monocytes % 8.5 Eosinophils % 4.5 Basophils % 0.6 Nucleated Red Blood Cells % 0.0 Neutrophils # 2.0 Lymphocytes # 0.9 Monocytes # 0.3 Eosinophils # 0.2 Basophils # 0.0 Nucleated Red Blood Cells # 0.0 Sodium Level 144 Potassium Level 4.4 Chloride Level 102 Carbon Dioxide Level 26 Anion Gap 20 H Blood Urea Nitrogen 28 H Creatinine 1.75 H Glucose Level 79 Calcium Level 8.9 Medications Medications Current Medications Aripiprazole (Abilify) 5 mg DAILY PO Last administered on 02/13/17 08:37; Admin Dose 5 MG; Start 01/18/17 at 09:00 Aspirin (Halfprin) 81 mg DAILY PO Last administered on 02/13/17 08:37; Admin Dose 81 MG; Start 01/18/17 at 09:00 Buspirone HCl (Buspar) 10 mg TID PO Last administered on 02/13/17 21:45; Admin Dose 10 MG; Start 01/18/17 at 09:00 Clonazepam (Klonopin) 1 mg BID PRN PO ANXIETY Last administered on 02/13/17 22: 34; Admin Dose 1 MG; Start 01/18/17 at 00:30 Duloxetine HCl (Cymbalta) 120 mg DAILY PO Last administered on 02/13/17 08:37; Admin Dose 120 MG; Start 01/18/17 at 09:00 Folic Acid (Folic Acid) 1 mg DAILY PO Last administered on 02/13/17 08:37; Admin Dose 1 MG; Start 01/18/17 at 09:00 Pregabalin (Lyrica) 50 mg BID PO Last administered on 02/13/17 21:46; Admin Dose 50 MG; Start 01/18/17 at 09:00 Ropinirole HCl (Requip) 0.25 mg HS PO Last administered on 02/13/17 22:35; Admin Dose 0.25 MG; Start 01/18/17 at 21:00 Tamsulosin HCl (Flomax) 0.4 mg HS PO Last administered on 02/13/17 21:46; Admin Dose 0.4 MG; Start 01/18/17 at 21:00 Atorvastatin Calcium (Lipitor) 5 mg QHS PO Last administered on 02/13/17 21:46 ; Admin Dose 5 MG; Start 01/18/17 at 21:00 Risperidone (Risperdal) 2 mg BID PO Last administered on 02/13/17 21:46; Admin Dose 2 MG; Start 01/18/17 at 00:30 Hydromorphone HCl (Dilaudid) 0.5 mg Q4H PRN IV PAIN Last administered on 06:10; Admin Dose 0.5 MG; Start 01/18/17 at 00:30 Morphine Sulfate (morphine) 4 mg Q4H PRN IV pain Last administered on 19:33; Admin Dose 4 MG; Start 01/18/17 at 14:00 Docusate Sodium (Colace) 250 mg DAILY PO Last administered on 02/13/17 08:37; Admin Dose 250 MG; Start 01/19/17 at 09:00 Oxycodone HCl (Oxycontin) 10 mg BID PO Last administered on 02/13/17 21:45; Admin Dose 10 MG; Start 01/18/17 at 14:23 Zinc Sulfate (Zinc Sulfate) 220 mg DAILY PO Last administered on 02/13/17 08:37 ; Admin Dose 220 MG; Start 01/20/17 at 13:00 Polyethylene Glycol (Miralax) 8.5 gm DAILY PO Last administered on 02/13/17 08: 39; Admin Dose 8.5 GM; Start 01/21/17 at 09:00 Zolpidem Tartrate (Ambien) 5 mg HS PRN PO INSOMNIA Last administered on 21:43; Admin Dose 5 MG; Start 01/21/17 at 23:30 Sodium Hypochlorite (Dakin'S (1/4 Strength)) 1 applic DAILY IRR Last administered on 02/13/17 08:41; Admin Dose 1 APPLIC; Start 01/23/17 at 09:00 Collagenase (Santyl) 1 applic DAILY TOP Last administered on 02/13/17 08:41; Admin Dose 1 APPLIC; Start 01/23/17 at 09:00 Lactobacillus Acidophilus (Florajen3 Capsule) 1 each BID PO Last administered on 02/13/17 21:46; Admin Dose 1 EACH; Start 01/24/17 at 21:00 Acetaminophen/ Hydrocodone Bitart ([place] (5/325)) 1 tab Q4H PRN PO PAIN Last administered on 02/14/17 04:12; Admin Dose 1 TAB; Start 01/26/17 at 14:30 Lorazepam (Ativan) 1 mg QHS PRN PO INSOMNIA Last administered on 02/13/17 22:34 ; Admin Dose 1 MG; Start 01/27/17 at 21:30 Heparin Sodium (Porcine) (Heparin (5000 Units/0.5 ml)) 5,000 unit BID SC Last administered on 02/13/17 21:54; Admin Dose 5,000 UNIT; Start 01/30/17 at 21:00 Famotidine (Pepcid) 20 mg HS PO Last administered on 02/13/17 21:46; Admin Dose 20 MG; Start 01/30/17 at 21:00 Hydralazine HCl (Apresoline) 10 mg Q6H PRN IV SBP greater than 160; Start 01/30 at 12:30 Ondansetron HCl (Zofran Inj) 4 mg Q6H PRN IV NAUSEA AND/OR VOMITING; Start at 18:30 Bisacodyl (Dulcolax Supp) 10 mg DAILY PRN [place] CONSTIPATION; Start 02/09/17 at 16: 30 Senna (Senokot) 2 tab BID PO Last administered on 02/13/17 22:34; Admin Dose 2 TAB; Start 02/09/17 at 21:00 Ferrous Sulfate (Ferrous Sulfate (Ec)) 325 mg BID PO Last administered on 21:47; Admin Dose 325 MG; Start 02/13/17 at 10:30 BELEN DIAZ NP Feb 14, 2017 07:07
[2017-02-14 07:37] VITALS: BP 135/76; RESP 20
[2017-02-14] MEDS: POLYETHYLENE GLYCOL 17 GM PACKET PO SCH (09:00)
[2017-02-14] MEDS: L ACIDOPHIL/B LACTIS/B LONGUM CAPSULE PO SCH ×2 (09:00→20:46)
[2017-02-14] MEDS: FERROUS SULFATE (EC) 325 MG TAB PO SCH ×2 (09:43→20:46)
[2017-02-14] MEDS: ZINC SULFATE 220 MG CAP PO SCH (09:43)
[2017-02-14] MEDS: PREGABALIN 25 MG CAP PO SCH ×2 (09:43→20:46)
[2017-02-14] MEDS: FOLIC ACID 1 MG TAB PO SCH (09:43)
[2017-02-14] MEDS: RISPERIDONE 2 MG TAB PO SCH ×2 (09:43→20:44)
[2017-02-14] MEDS: oxyCODONE (CR) 10 MG TAB [oxyCONTIN] PO SCH ×2 (09:43→20:45)
[2017-02-14] MEDS: BUSPIRONE 10 MG TAB PO SCH ×3 (09:43→20:46)
[2017-02-14] MEDS: ASPIRIN (EC) 81 MG TAB PO SCH (09:43)
[2017-02-14] MEDS: DULOXETINE 30 MG CAP DR PO SCH (09:43)
[2017-02-14] MEDS: DOCUSATE SODIUM 250 MG CAP PO SCH (09:44)
[2017-02-14] MEDS: ARIPIPRAZOLE 5 MG TAB PO SCH (09:44)
[2017-02-14] MEDS: SENNA TAB PO SCH ×2 (09:44→20:44)
[2017-02-14] MEDS: SODIUM HYPOCHLORITE 0.125% 473 ML BTL IRR SCH (09:45)
[2017-02-14] MEDS: COLLAGENASE 30 GM TUBE TOP SCH (09:45)
[2017-02-14] MEDS: HEPARIN 5,000 UNIT/0.5 ML VIAL SC SCH ×2 (09:52→20:53)
[2017-02-14] MEDS: clonAZEPAM 0.5 MG TAB PO PRN ×3 (10:25→22:14)
[2017-02-14 13:40] VITALS: BP 126/67; RESP 20
--- NOTE | 2017-02-14 16:51 | PN ---
Date/Time of Note Date/Time of Note DATE: 02/14/17 TIME: 16:43 Assessment/Plan Lines/Catheters IV Catheter Type (from [facility]): Saline Lock [facility] in Place (from [facility]): No Assessment/Plan Chief Complaint/Hosp Course 1. Sacral wound: s/p debridement 01/22, periwound redness improved, min drainage no odor; wound improving/healing well; placement pending -continue local care -frequent turning and repositioning -specialty bed -nutrition optimization 2. Sacral cellulitis: s/p debridement &abx 3. Leukocytopenia:resolved 4. Normocytic anemia: no acute bleed noted:s/p PRBC transfusion 01/19; stable 5. Thrombocytopenia 2/2 #2; resolved 6. Hypoalbuminemia: likely 2/2 malnutrition, improved 8. UTI: s/p abx Patient seen and examined in collaboration with Dr. El Root. Thank you Problems: Subjective 24 Hr Interval Summary Placement pending. min/mod discomfort on back. No fevers, chills, n/v/d/ dysuria. scant drainage from wound. Exam/Review of Systems Vital Signs Vitals Vital Signs Date Time Temp Pulse Resp B/P Pulse Ox O2 Delivery O2 Flow Rate FiO2 02/14/17 13:40 97.1 68 20 126/67 97 Intake and Output 02/13/17 02/13/17 02/14/17 15:00 23:00 07:00 Intake Total 2680 ml 1000 ml Output Total 3200 ml 1850 ml Balance -520 ml -850 ml Exam Free Text/Dictation Constitutional: alert, oriented Psych: labile mood Head: atraumatic, normocephalic Eyes: PERRL, nl lids, nl sclera ENMT: mucosa pink and moist, nl nasal mucosa & septum Neck: non-tender, supple Respiratory: normal air movement Cardiovascular: nl pulses, regular rate and rhythm Gastrointestinal: non-tender, soft Musculoskeletal: nl extremities to inspection Extremities: normal pulses Neurological: nl speech, nl strength Skin: other (sacral wound with pink wound bed, min maceration periwound, no drainage, no odor, healing well) Lymph: nl lymph nodes Results Result Diagram: 02/13/17 1332 02/13/17 1332 DORINA LITTLEJOHN NP Feb 14, 2017 16:51
[2017-02-14 17:40] LABS: CALCIUM 8.8 mg/dl (8.4-10.2); CREATININE 1.56 mg/dl (0.61-1.24); POTASSIUM 4.2 mmol/L (3.5-5.1)
[2017-02-14 19:53] VITALS: BP 113/57; RESP 20
[2017-02-14] MEDS: FAMOTIDINE 20 MG TAB PO SCH (20:44)
[2017-02-14] MEDS: TAMSULOSIN (SR) 0.4 MG CAP PO SCH (20:46)
[2017-02-14] MEDS: ROPINIROLE 0.25 MG TAB PO SCH (20:46)
[2017-02-14] MEDS: ATORVASTATIN 10 MG TAB PO SCH (20:46)
[2017-02-14] MEDS: LORAZEPAM 1 MG TAB PO PRN (22:14)
[2017-02-15 02:00] VITALS: BP 121/78; RESP 20
[2017-02-15] MEDS: HYDROmorphONE 1 MG/ML SYG IV PRN ×5 (02:06→20:57)
[2017-02-15 07:03] LABS: CALCIUM 8.9 mg/dl (8.4-10.2); CREATININE 1.59 mg/dl (0.61-1.24); POTASSIUM 4.2 mmol/L (3.5-5.1)
--- NOTE | 2017-02-15 07:18 | PN ---
Date/Time of Note Date/Time of Note DATE: 02/15/17 TIME: 07:18 Assessment/Plan VTE Prophylaxis VTE Prophylaxis Intervention: heparin Lines/Catheters IV Catheter Type (from [facility]): Saline Lock Urinary Cath still in place: No Assessment/Plan Chief Complaint/Hosp Course 1. Sacrococcygeal stage IV decubitus ulcer with necrotic tissue. Infected. Status post debridement. Wound culture positive for E. coli. Status post antimicrobials as per infectious diseases. 2. Bilateral gluteal cellulitis. Local wound care. Status post antimicrobials as per infectious diseases. 3. Urinary tract infection. Urine culture positive for Enterobacter cloacae. Status post antimicrobials as per infectious diseases. 4. Acute nonoliguric kidney injury. Unknown baseline creatinine. Continue to monitor renal function closely. 5. Normocytic, normochromic anemia. Underlying iron deficiency. Continue iron supplements. 6. Benign prostatic hypertrophy. Continue tamsulosin. 7. Debility. Continue physical therapy. 8. Possible underlying psychiatric disorder. Continue mood stabilizers. 9. Fluids, electrolytes, and nutrition. Regular diet. 10. DVT prophylaxis. Subcutaneous heparin. 11. Gastrointestinal prophylaxis. Histamine 2 receptor blockers. 12. Plan. Continue local wound care. Continue repositioning. Await placement. Case discussed with Dr. Garcia. Problems: Subjective 24 Hr Interval Summary Free Text/Dictation No changes in status. Exam/Review of Systems Vital Signs Vitals Vital Signs Date Time Temp Pulse Resp B/P Pulse Ox O2 Delivery O2 Flow Rate FiO2 02/15/17 02:00 98.2 81 20 121/78 98 Intake and Output 02/14/17 02/14/17 02/15/17 15:00 23:00 07:00 Intake Total 2640 ml Output Total 3200 ml Balance -560 ml Exam General: Adequately build 56 year-old male lying in bed in no apparent distress. HEENT: Normocephalic, atraumatic. Eyes: Anicteric sclerae, conjunctivae clear. ENT: Nasal septum midline, oral mucosa moist. Neck supple, no JVD noticed. Respiratory: Bilaterally diminished breath sounds. No use of accessory muscles of respiration. No adventitious breath sounds. Cardiovascular: S1, S2 heard. No murmurs or gallops. Abdomen: Soft, nontender, and nondistended. Bowel sounds positive in all 4 quadrants. Genitourinary: Deferred. Extremities: No cyanosis, no clubbing, no edema. Peripheral pulses palpable. Neurologic: Cranial nerves II through XII grossly intact. The patient is awake, alert, and oriented. Results Result Diagram: 02/13/17 1332 02/14/17 1650 Results 24 hrs Laboratory Tests Test 02/14/17 16:50 Sodium Level 142 Potassium Level 4.2 Chloride Level 103 Carbon Dioxide Level 26 Anion Gap 17 H Blood Urea Nitrogen 26 H Creatinine 1.56 H Glucose Level 109 Calcium Level 8.8 Medications Medications Current Medications Aripiprazole (Abilify) 5 mg DAILY PO Last administered on 02/14/17 09:44; Admin Dose 5 MG; Start 01/18/17 at 09:00 Aspirin (Halfprin) 81 mg DAILY PO Last administered on 02/14/17 09:43; Admin Dose 81 MG; Start 01/18/17 at 09:00 Buspirone HCl (Buspar) 10 mg TID PO Last administered on 02/14/17 20:46; Admin Dose 10 MG; Start 01/18/17 at 09:00 Clonazepam (Klonopin) 1 mg BID PRN PO ANXIETY Last administered on 02/14/17 22: 14; Admin Dose 1 MG; Start 01/18/17 at 00:30 Duloxetine HCl (Cymbalta) 120 mg DAILY PO Last administered on 02/14/17 09:43; Admin Dose 120 MG; Start 01/18/17 at 09:00 Folic Acid (Folic Acid) 1 mg DAILY PO Last administered on 02/14/17 09:43; Admin Dose 1 MG; Start 01/18/17 at 09:00 Pregabalin (Lyrica) 50 mg BID PO Last administered on 02/14/17 20:46; Admin Dose 50 MG; Start 01/18/17 at 09:00 Ropinirole HCl (Requip) 0.25 mg HS PO Last administered on 02/14/17 20:46; Admin Dose 0.25 MG; Start 01/18/17 at 21:00 Tamsulosin HCl (Flomax) 0.4 mg HS PO Last administered on 02/14/17 20:46; Admin Dose 0.4 MG; Start 01/18/17 at 21:00 Atorvastatin Calcium (Lipitor) 5 mg QHS PO Last administered on 02/14/17 20:46 ; Admin Dose 5 MG; Start 01/18/17 at 21:00 Risperidone (Risperdal) 2 mg BID PO Last administered on 02/14/17 20:44; Admin Dose 2 MG; Start 01/18/17 at 00:30 Hydromorphone HCl (Dilaudid) 0.5 mg Q4H PRN IV PAIN Last administered on 06:07; Admin Dose 0.5 MG; Start 01/18/17 at 00:30 Morphine Sulfate (morphine) 4 mg Q4H PRN IV pain Last administered on 19:33; Admin Dose 4 MG; Start 01/18/17 at 14:00 Docusate Sodium (Colace) 250 mg DAILY PO Last administered on 02/14/17 09:44; Admin Dose 250 MG; Start 01/19/17 at 09:00 Oxycodone HCl (Oxycontin) 10 mg BID PO Last administered on 02/14/17 20:45; Admin Dose 10 MG; Start 01/18/17 at 14:23 Zinc Sulfate (Zinc Sulfate) 220 mg DAILY PO Last administered on 02/14/17 09:43 ; Admin Dose 220 MG; Start 01/20/17 at 13:00 Polyethylene Glycol (Miralax) 8.5 gm DAILY PO Last administered on 02/13/17 08: 39; Admin Dose 8.5 GM; Start 01/21/17 at 09:00 Zolpidem Tartrate (Ambien) 5 mg HS PRN PO INSOMNIA Last administered on 21:43; Admin Dose 5 MG; Start 01/21/17 at 23:30 Sodium Hypochlorite (Dakin'S (1/4 Strength)) 1 applic DAILY IRR Last administered on 02/14/17 09:45; Admin Dose 1 APPLIC; Start 01/23/17 at 09:00 Collagenase (Santyl) 1 applic DAILY TOP Last administered on 02/14/17 09:45; Admin Dose 1 APPLIC; Start 01/23/17 at 09:00 Lactobacillus Acidophilus (Florajen3 Capsule) 1 each BID PO Last administered on 02/14/17 20:46; Admin Dose 1 EACH; Start 01/24/17 at 21:00 Acetaminophen/ Hydrocodone Bitart ([place] (5/325)) 1 tab Q4H PRN PO PAIN Last administered on 02/14/17 19:49; Admin Dose 1 TAB; Start 01/26/17 at 14:30 Lorazepam (Ativan) 1 mg QHS PRN PO INSOMNIA Last administered on 02/14/17 22:14 ; Admin Dose 1 MG; Start 01/27/17 at 21:30 Heparin Sodium (Porcine) (Heparin (5000 Units/0.5 ml)) 5,000 unit BID SC Last administered on 02/14/17 20:53; Admin Dose 5,000 UNIT; Start 01/30/17 at 21:00 Famotidine (Pepcid) 20 mg HS PO Last administered on 02/14/17 20:44; Admin Dose 20 MG; Start 01/30/17 at 21:00 Hydralazine HCl (Apresoline) 10 mg Q6H PRN IV SBP greater than 160; Start 01/30 at 12:30 Ondansetron HCl (Zofran Inj) 4 mg Q6H PRN IV NAUSEA AND/OR VOMITING; Start at 18:30 Bisacodyl (Dulcolax Supp) 10 mg DAILY PRN [place] CONSTIPATION; Start 02/09/17 at 16: 30 Senna (Senokot) 2 tab BID PO Last administered on 02/14/17 20:44; Admin Dose 2 TAB; Start 02/09/17 at 21:00 Ferrous Sulfate (Ferrous Sulfate (Ec)) 325 mg BID PO Last administered on 20:46; Admin Dose 325 MG; Start 02/13/17 at 10:30 BELEN DIAZ NP Feb 15, 2017 07:18
[2017-02-15 07:53] VITALS: BP 145/86; RESP 20
[2017-02-15] MEDS: ARIPIPRAZOLE 5 MG TAB PO SCH (08:37)
[2017-02-15] MEDS: DOCUSATE SODIUM 250 MG CAP PO SCH (08:37)
[2017-02-15] MEDS: FERROUS SULFATE (EC) 325 MG TAB PO SCH ×2 (08:37→20:56)
[2017-02-15] MEDS: ZINC SULFATE 220 MG CAP PO SCH (08:37)
[2017-02-15] MEDS: ASPIRIN (EC) 81 MG TAB PO SCH (08:37)
[2017-02-15] MEDS: clonAZEPAM 0.5 MG TAB PO PRN ×3 (08:38→23:42)
[2017-02-15] MEDS: HYDROCODONE/APAP (5/325) TAB PO PRN ×3 (08:38→16:42)
[2017-02-15] MEDS: SENNA TAB PO SCH ×2 (08:38→20:55)
[2017-02-15] MEDS: FOLIC ACID 1 MG TAB PO SCH (08:38)
[2017-02-15] MEDS: BUSPIRONE 10 MG TAB PO SCH ×3 (08:38→20:55)
[2017-02-15] MEDS: RISPERIDONE 2 MG TAB PO SCH ×2 (08:38→20:56)
[2017-02-15] MEDS: oxyCODONE (CR) 10 MG TAB [oxyCONTIN] PO SCH ×3 (08:38→23:42)
[2017-02-15] MEDS: PREGABALIN 25 MG CAP PO SCH ×2 (08:39→20:55)
[2017-02-15] MEDS: COLLAGENASE 30 GM TUBE TOP SCH (08:39)
[2017-02-15] MEDS: DULOXETINE 30 MG CAP DR PO SCH (08:39)
[2017-02-15] MEDS: SODIUM HYPOCHLORITE 0.125% 473 ML BTL IRR SCH (08:39)
[2017-02-15] MEDS: POLYETHYLENE GLYCOL 17 GM PACKET PO SCH (09:00)
[2017-02-15] MEDS: HEPARIN 5,000 UNIT/0.5 ML VIAL SC SCH ×2 (09:04→21:08)
--- NOTE | 2017-02-15 10:34 | PN ---
Date/Time of Note Date/Time of Note DATE: 02/15/17 TIME: 10:32 Assessment/Plan Lines/Catheters IV Catheter Type (from [facility]): Saline Lock Chambers in Place (from [facility]): No Assessment/Plan Chief Complaint/Hosp Course 1. Sacral wound: s/p debridement 01/22, periwound redness improved, min drainage no odor; wound improving/healing well; placement still pending -continue local care -frequent turning and repositioning -specialty bed -nutrition optimization 2. Sacral cellulitis: s/p debridement &abx 3. Leukocytopenia:resolved 4. Normocytic anemia: no acute bleed noted:s/p PRBC transfusion 01/19; stable 5. Thrombocytopenia 2/2 #2; resolved 6. Hypoalbuminemia: likely 2/2 malnutrition, improved 8. UTI: s/p abx Patient seen and examined in collaboration with Dr. El Root. Thank you Problems: Subjective 24 Hr Interval Summary Feels well. No acute events overnight. sacral wound with scant drainage, no odor. No discomfort to wound. Back pain intermittent. No fevers, chills, cp, palpitations, sob, cough, n/v/d/dysuria. +bowel function. Exam/Review of Systems Vital Signs Vitals Vital Signs Date Time Temp Pulse Resp B/P Pulse Ox O2 Delivery O2 Flow Rate FiO2 02/15/17 07:53 98.0 93 20 145/86 98 Intake and Output 02/14/17 02/14/17 02/15/17 14:59 22:59 06:59 Intake Total 2640 ml 1450 ml Output Total 3200 ml 2600 ml Balance -560 ml -1150 ml Exam Free Text/Dictation Constitutional: alert, oriented Psych: labile mood Head: atraumatic, normocephalic Eyes: PERRL, nl lids, nl sclera ENMT: mucosa pink and moist, nl nasal mucosa & septum Neck: non-tender, supple Respiratory: normal air movement Cardiovascular: nl pulses, regular rate and rhythm Gastrointestinal: non-tender, soft Musculoskeletal: nl extremities to inspection Extremities: normal pulses Neurological: nl speech, nl strength Skin: other (sacral wound with pink wound bed, min maceration periwound, no drainage, no odor, continuing to heal well) Lymph: nl lymph nodes Results Result Diagram: 02/13/17 1332 02/15/17 0559 DORINA LITTLEJOHN NP Feb 15, 2017 10:34
[2017-02-15] MEDS: L ACIDOPHIL/B LACTIS/B LONGUM CAPSULE PO SCH ×2 (10:40→20:56)
[2017-02-15 13:28] VITALS: BP 112/69; RESP 18
[2017-02-15 20:21] VITALS: BP 124/70; RESP 20
[2017-02-15] MEDS: TAMSULOSIN (SR) 0.4 MG CAP PO SCH (20:55)
[2017-02-15] MEDS: FAMOTIDINE 20 MG TAB PO SCH (20:55)
[2017-02-15] MEDS: ROPINIROLE 0.25 MG TAB PO SCH (20:56)
[2017-02-15] MEDS: ATORVASTATIN 10 MG TAB PO SCH (20:56)
[2017-02-15] MEDS: LORAZEPAM 1 MG TAB PO PRN (22:04)
[2017-02-16 02:00] VITALS: BP 98/58; RESP 20
[2017-02-16] MEDS: HYDROmorphONE 1 MG/ML SYG IV PRN ×4 (02:04→20:25)
[2017-02-16] MEDS: HYDROCODONE/APAP (5/325) TAB PO PRN ×4 (04:43→22:26)
[2017-02-16 06:53] LABS: CALCIUM 8.7 mg/dl (8.4-10.2); CREATININE 1.7 mg/dl (0.61-1.24); POTASSIUM 4.2 mmol/L (3.5-5.1)
[2017-02-16 08:05] VITALS: BP 113/74; RESP 20
[2017-02-16] MEDS: ASPIRIN (EC) 81 MG TAB PO SCH (08:41)
[2017-02-16] MEDS: ARIPIPRAZOLE 5 MG TAB PO SCH (08:41)
[2017-02-16] MEDS: PREGABALIN 25 MG CAP PO SCH ×2 (08:41→21:23)
[2017-02-16] MEDS: RISPERIDONE 2 MG TAB PO SCH ×2 (08:41→21:24)
[2017-02-16] MEDS: L ACIDOPHIL/B LACTIS/B LONGUM CAPSULE PO SCH ×2 (08:41→21:23)
[2017-02-16] MEDS: DULOXETINE 30 MG CAP DR PO SCH (08:41)
[2017-02-16] MEDS: BUSPIRONE 10 MG TAB PO SCH ×3 (08:41→21:24)
[2017-02-16] MEDS: DOCUSATE SODIUM 250 MG CAP PO SCH (08:42)
[2017-02-16] MEDS: FOLIC ACID 1 MG TAB PO SCH (08:42)
[2017-02-16] MEDS: SODIUM HYPOCHLORITE 0.125% 473 ML BTL IRR SCH (08:42)
[2017-02-16] MEDS: SENNA TAB PO SCH ×2 (08:42→21:24)
[2017-02-16] MEDS: oxyCODONE (CR) 10 MG TAB [oxyCONTIN] PO SCH ×2 (08:42→21:24)
[2017-02-16] MEDS: POLYETHYLENE GLYCOL 17 GM PACKET PO SCH (08:42)
[2017-02-16] MEDS: FERROUS SULFATE (EC) 325 MG TAB PO SCH ×2 (08:42→21:24)
[2017-02-16] MEDS: COLLAGENASE 30 GM TUBE TOP SCH (08:43)
[2017-02-16] MEDS: clonAZEPAM 0.5 MG TAB PO PRN ×2 (08:45→21:27)
[2017-02-16] MEDS: ZINC SULFATE 220 MG CAP PO SCH (08:45)
[2017-02-16] MEDS: HEPARIN 5,000 UNIT/0.5 ML VIAL SC SCH ×2 (08:54→21:33)
--- NOTE | 2017-02-16 09:28 | PN ---
Date/Time of Note Date/Time of Note DATE: 02/16/17 TIME: 09:28 Assessment/Plan VTE Prophylaxis VTE Prophylaxis Intervention: heparin Lines/Catheters IV Catheter Type (from [facility]): Saline Lock Urinary Cath still in place: No Assessment/Plan Chief Complaint/Hosp Course 1. Sacrococcygeal stage IV decubitus ulcer with necrotic tissue. Infected. Status post debridement. Wound culture positive for E. coli. Status post antimicrobials as per infectious diseases. 2. Bilateral gluteal cellulitis. Local wound care. Status post antimicrobials as per infectious diseases. 3. Urinary tract infection. Urine culture positive for Enterobacter cloacae. Status post antimicrobials as per infectious diseases. 4. Acute nonoliguric kidney injury. Unknown baseline creatinine. Continue to monitor renal function closely. 5. Normocytic, normochromic anemia. Underlying iron deficiency. Continue iron supplements. 6. Benign prostatic hypertrophy. Continue tamsulosin. 7. Debility. Continue physical therapy. 8. Possible underlying psychiatric disorder. Continue mood stabilizers. 9. Fluids, electrolytes, and nutrition. Regular diet. 10. DVT prophylaxis. Subcutaneous heparin. 11. Gastrointestinal prophylaxis. Histamine 2 receptor blockers. 12. Plan. Continue local wound care. Continue repositioning. Await placement. Case discussed with Dr. Garcia. Problems: Subjective 24 Hr Interval Summary Free Text/Dictation No changes in status. Exam/Review of Systems Vital Signs Vitals Vital Signs Date Time Temp Pulse Resp B/P Pulse Ox O2 Delivery O2 Flow Rate FiO2 02/16/17 08:05 97.5 73 20 113/74 97 Intake and Output 02/15/17 02/15/17 02/16/17 15:00 23:00 07:00 Intake Total 1000 ml 1200 ml Output Total 600 ml 500 ml Balance 400 ml 700 ml Exam General: Adequately build 56 year-old male lying in bed in no apparent distress. HEENT: Normocephalic, atraumatic. Eyes: Anicteric sclerae, conjunctivae clear. ENT: Nasal septum midline, oral mucosa moist. Neck supple, no JVD noticed. Respiratory: Bilaterally diminished breath sounds. No use of accessory muscles of respiration. No adventitious breath sounds. Cardiovascular: S1, S2 heard. No murmurs or gallops. Abdomen: Soft, nontender, and nondistended. Bowel sounds positive in all 4 quadrants. Genitourinary: Deferred. Extremities: No cyanosis, no clubbing, no edema. Peripheral pulses palpable. Neurologic: Cranial nerves II through XII grossly intact. The patient is awake, alert, and oriented. Results Result Diagram: 02/13/17 1332 02/16/17 0539 Results 24 hrs Laboratory Tests Test 02/16/17 05:39 Sodium Level 143 Potassium Level 4.2 Chloride Level 108 Carbon Dioxide Level 22 Anion Gap 17 H Blood Urea Nitrogen 23 H Creatinine 1.70 H Glucose Level 91 Calcium Level 8.7 Medications Medications Current Medications Aripiprazole (Abilify) 5 mg DAILY PO Last administered on 02/16/17 08:41; Admin Dose 5 MG; Start 01/18/17 at 09:00 Aspirin (Halfprin) 81 mg DAILY PO Last administered on 02/16/17 08:41; Admin Dose 81 MG; Start 01/18/17 at 09:00 Buspirone HCl (Buspar) 10 mg TID PO Last administered on 02/16/17 08:41; Admin Dose 10 MG; Start 01/18/17 at 09:00 Clonazepam (Klonopin) 1 mg BID PRN PO ANXIETY Last administered on 02/16/17 08 :45; Admin Dose 1 MG; Start 01/18/17 at 00:30 Duloxetine HCl (Cymbalta) 120 mg DAILY PO Last administered on 02/16/17 08:41 ; Admin Dose 120 MG; Start 01/18/17 at 09:00 Folic Acid (Folic Acid) 1 mg DAILY PO Last administered on 02/16/17 08:42; Admin Dose 1 MG; Start 01/18/17 at 09:00 Pregabalin (Lyrica) 50 mg BID PO Last administered on 02/16/17 08:41; Admin Dose 50 MG; Start 01/18/17 at 09:00 Ropinirole HCl (Requip) 0.25 mg HS PO Last administered on 02/15/17 20:56; Admin Dose 0.25 MG; Start 01/18/17 at 21:00 Tamsulosin HCl (Flomax) 0.4 mg HS PO Last administered on 02/15/17 20:55; Admin Dose 0.4 MG; Start 01/18/17 at 21:00 Atorvastatin Calcium (Lipitor) 5 mg QHS PO Last administered on 02/15/17 20:56 ; Admin Dose 5 MG; Start 01/18/17 at 21:00 Risperidone (Risperdal) 2 mg BID PO Last administered on 02/16/17 08:41; Admin Dose 2 MG; Start 01/18/17 at 00:30 Hydromorphone HCl (Dilaudid) 0.5 mg Q4H PRN IV PAIN Last administered on 07:41; Admin Dose 0.5 MG; Start 01/18/17 at 00:30 Morphine Sulfate (morphine) 4 mg Q4H PRN IV pain Last administered on 19:33; Admin Dose 4 MG; Start 01/18/17 at 14:00 Docusate Sodium (Colace) 250 mg DAILY PO Last administered on 02/16/17 08:42; Admin Dose 250 MG; Start 01/19/17 at 09:00 Oxycodone HCl (Oxycontin) 10 mg BID PO Last administered on 02/16/17 08:42; Admin Dose 10 MG; Start 01/18/17 at 14:23 Zinc Sulfate (Zinc Sulfate) 220 mg DAILY PO Last administered on 02/16/17 08: 45; Admin Dose 220 MG; Start 01/20/17 at 13:00 Polyethylene Glycol (Miralax) 8.5 gm DAILY PO Last administered on 02/16/17 08 :42; Admin Dose 8.5 GM; Start 01/21/17 at 09:00 Zolpidem Tartrate (Ambien) 5 mg HS PRN PO INSOMNIA Last administered on 21:43; Admin Dose 5 MG; Start 01/21/17 at 23:30 Sodium Hypochlorite (Dakin'S (1/4 Strength)) 1 applic DAILY IRR Last administered on 02/16/17 08:42; Admin Dose 1 APPLIC; Start 01/23/17 at 09:00 Collagenase (Santyl) 1 applic DAILY TOP Last administered on 02/16/17 08:43; Admin Dose 1 APPLIC; Start 01/23/17 at 09:00 Lactobacillus Acidophilus (Florajen3 Capsule) 1 each BID PO Last administered on 02/16/17 08:41; Admin Dose 1 EACH; Start 01/24/17 at 21:00 Acetaminophen/ Hydrocodone Bitart ([place] (5/325)) 1 tab Q4H PRN PO PAIN Last administered on 02/16/17 04:43; Admin Dose 1 TAB; Start 01/26/17 at 14:30 Lorazepam (Ativan) 1 mg QHS PRN PO INSOMNIA Last administered on 02/15/17 22:04 ; Admin Dose 1 MG; Start 01/27/17 at 21:30 Heparin Sodium (Porcine) (Heparin (5000 Units/0.5 ml)) 5,000 unit BID SC Last administered on 02/16/17 08:54; Admin Dose 5,000 UNIT; Start 01/30/17 at 21:00 Famotidine (Pepcid) 20 mg HS PO Last administered on 02/15/17 20:55; Admin Dose 20 MG; Start 01/30/17 at 21:00 Hydralazine HCl (Apresoline) 10 mg Q6H PRN IV SBP greater than 160; Start 01/30 at 12:30 Ondansetron HCl (Zofran Inj) 4 mg Q6H PRN IV NAUSEA AND/OR VOMITING; Start at 18:30 Bisacodyl (Dulcolax Supp) 10 mg DAILY PRN [place] CONSTIPATION; Start 02/09/17 at 16: 30 Senna (Senokot) 2 tab BID PO Last administered on 02/16/17 08:42; Admin Dose 2 TAB; Start 02/09/17 at 21:00 Ferrous Sulfate (Ferrous Sulfate (Ec)) 325 mg BID PO Last administered on 08:42; Admin Dose 325 MG; Start 02/13/17 at 10:30 BELEN DIAZ NP Feb 16, 2017 09:28
--- NOTE | 2017-02-16 12:41 | PN ---
Date/Time of Note Date/Time of Note DATE: 02/16/17 TIME: 12:38 Assessment/Plan Lines/Catheters IV Catheter Type (from [facility]): Saline Lock Chambers in Place (from [facility]): No Assessment/Plan Chief Complaint/Hosp Course 1. Sacral wound: s/p debridement 01/22, wound improving/healing well; awaiting placement -continue local care -frequent turning and repositioning -specialty bed -nutrition optimization 2. Sacral cellulitis: s/p debridement &abx 3. Leukocytopenia:resolved 4. Normocytic anemia: no acute bleed noted:s/p PRBC transfusion 01/19; stable 5. Thrombocytopenia 2/2 #2; resolved 6. Hypoalbuminemia: likely 2/2 malnutrition, improved 8. UTI: s/p abx Patient seen and examined in collaboration with Dr. El Root. Thank you Problems: Subjective 24 Hr Interval Summary Feels well. No c/o pain, only min discomfort to back. No fevers, chills, excessive wound drainage or acute change in wound, n/v/d/dysuria. Exam/Review of Systems Vital Signs Vitals Vital Signs Date Time Temp Pulse Resp B/P Pulse Ox O2 Delivery O2 Flow Rate FiO2 02/16/17 08:05 97.5 73 20 113/74 97 Intake and Output 02/15/17 02/15/17 02/16/17 15:00 23:00 07:00 Intake Total 1000 ml 1200 ml Output Total 600 ml 500 ml Balance 400 ml 700 ml Exam Free Text/Dictation Constitutional: alert, oriented Psych: labile mood Head: atraumatic, normocephalic Eyes: PERRL, nl lids, nl sclera ENMT: mucosa pink and moist, nl nasal mucosa & septum Neck: non-tender, supple Respiratory: normal air movement Cardiovascular: nl pulses, regular rate and rhythm Gastrointestinal: non-tender, soft Musculoskeletal: nl extremities to inspection Extremities: normal pulses Neurological: nl speech, nl strength Skin: other (sacral wound with pink wound bed, maceration periwound improved, no drainage, no odor, continuing to heal well) Lymph: nl lymph nodes Results Result Diagram: 02/13/17 1332 02/16/17 0539 DORINA LITTLEJOHN NP Feb 16, 2017 12:41
[2017-02-16 15:40] VITALS: BP 112/61; RESP 19
[2017-02-16 20:00] VITALS: BP 115/67; RESP 18
[2017-02-16] MEDS: ATORVASTATIN 10 MG TAB PO SCH (21:24)
[2017-02-16] MEDS: FAMOTIDINE 20 MG TAB PO SCH (21:24)
[2017-02-16] MEDS: TAMSULOSIN (SR) 0.4 MG CAP PO SCH (21:24)
[2017-02-16] MEDS: ROPINIROLE 0.25 MG TAB PO SCH (21:27)
[2017-02-16] MEDS: LORAZEPAM 1 MG TAB PO PRN (22:26)
[2017-02-17] MEDS: HYDROmorphONE 1 MG/ML SYG IV PRN ×5 (00:35→19:33)
[2017-02-17 01:59] VITALS: BP 118/66; RESP 16
[2017-02-17 06:10] LABS: CREATININE 1.69 mg/dl (0.61-1.24); POTASSIUM 4.2 mmol/L (3.5-5.1)
[2017-02-17] MEDS: HYDROCODONE/APAP (5/325) TAB PO PRN ×2 (06:49→12:14)
[2017-02-17 07:29] VITALS: BP 111/65; RESP 18
[2017-02-17] MEDS: FOLIC ACID 1 MG TAB PO SCH (08:25)
[2017-02-17] MEDS: ZINC SULFATE 220 MG CAP PO SCH (08:25)
[2017-02-17] MEDS: PREGABALIN 25 MG CAP PO SCH (08:25)
[2017-02-17] MEDS: BUSPIRONE 10 MG TAB PO SCH ×2 (08:26→12:52)
[2017-02-17] MEDS: RISPERIDONE 2 MG TAB PO SCH (08:26)
[2017-02-17] MEDS: ARIPIPRAZOLE 5 MG TAB PO SCH (08:26)
[2017-02-17] MEDS: SENNA TAB PO SCH (08:26)
[2017-02-17] MEDS: POLYETHYLENE GLYCOL 17 GM PACKET PO SCH (08:26)
[2017-02-17] MEDS: L ACIDOPHIL/B LACTIS/B LONGUM CAPSULE PO SCH (08:26)
[2017-02-17] MEDS: ASPIRIN (EC) 81 MG TAB PO SCH (08:26)
[2017-02-17] MEDS: DOCUSATE SODIUM 250 MG CAP PO SCH (08:26)
[2017-02-17] MEDS: DULOXETINE 30 MG CAP DR PO SCH (08:26)
[2017-02-17] MEDS: FERROUS SULFATE (EC) 325 MG TAB PO SCH (08:26)
[2017-02-17] MEDS: oxyCODONE (CR) 10 MG TAB [oxyCONTIN] PO SCH (08:27)
[2017-02-17] MEDS: clonAZEPAM 0.5 MG TAB PO PRN ×2 (08:31→18:30)
[2017-02-17] MEDS: SODIUM HYPOCHLORITE 0.125% 473 ML BTL IRR SCH (09:29)
[2017-02-17] MEDS: COLLAGENASE 30 GM TUBE TOP SCH (09:29)
--- NOTE | 2017-02-17 09:36 | PN ---
Date/Time of Note Date/Time of Note DATE: 02/17/17 TIME: 09:36 Assessment/Plan VTE Prophylaxis VTE Prophylaxis Intervention: heparin Lines/Catheters IV C[facility] Type (from [facility]): Saline Lock Urinary Cath still in place: No Assessment/Plan Chief Complaint/Hosp Course 1. Sacrococcygeal stage IV decubitus ulcer with necrotic tissue. Infected. Status post debridement. Wound culture positive for E. coli. Status post antimicrobials as per infectious diseases. 2. Bilateral gluteal cellulitis. Local wound care. Status post antimicrobials as per infectious diseases. 3. Urinary tract infection. Urine culture positive for Enterobacter cloacae. Status post antimicrobials as per infectious diseases. 4. Acute nonoliguric kidney injury. Unknown baseline creatinine. Continue to monitor renal function closely. 5. Normocytic, normochromic anemia. Underlying iron deficiency. Continue iron supplements. 6. Benign prostatic hypertrophy. Continue tamsulosin. 7. Debility. Continue physical therapy. 8. Possible underlying psychiatric disorder. Continue mood stabilizers. 9. Fluids, electrolytes, and nutrition. Regular diet. 10. DVT prophylaxis. Subcutaneous heparin. 11. Gastrointestinal prophylaxis. Histamine 2 receptor blockers. 12. Plan. Continue local wound care. Continue repositioning. Await placement. Case discussed with Dr. Garcia. Problems: Subjective 24 Hr Interval Summary Free Text/Dictation No changes in status. Awaiting placement. Exam/Review of Systems Vital Signs Vitals Vital Signs Date Time Temp Pulse Resp B/P Pulse Ox O2 Delivery O2 Flow Rate FiO2 02/17/17 07:29 98.5 69 18 111/65 98 Intake and Output 02/16/17 02/16/17 02/17/17 15:00 23:00 07:00 Intake Total 1200 ml 1000 ml Output Total 700 ml 1800 ml Balance 500 ml -800 ml Exam General: Adequately build 56 year-old male lying in bed in no apparent distress. HEENT: Normocephalic, atraumatic. Eyes: Anicteric sclerae, conjunctivae clear. ENT: Nasal septum midline, oral mucosa moist. Neck supple, no JVD noticed. Respiratory: Bilaterally diminished breath sounds. No use of accessory muscles of respiration. No adventitious breath sounds. Cardiovascular: S1, S2 heard. No murmurs or gallops. Abdomen: Soft, nontender, and nondistended. Bowel sounds positive in all 4 quadrants. Genitourinary: Deferred. Extremities: No cyanosis, no clubbing, no edema. Peripheral pulses palpable. Neurologic: Cranial nerves II through XII grossly intact. The patient is awake, alert, and oriented. Results Result Diagram: 02/13/17 1332 02/17/17 0532 Results 24 hrs Laboratory Tests Test 02/17/17 05:32 Sodium Level 143 Potassium Level 4.2 Chloride Level 105 Carbon Dioxide Level 23 Anion Gap 19 H Blood Urea Nitrogen 21 H Creatinine 1.69 H Glucose Level 131 # Calcium Level 9.0 Medications Medications Current Medications Aripiprazole (Abilify) 5 mg DAILY PO Last administered on 02/17/17 08:26; Admin Dose 5 MG; Start 01/18/17 at 09:00 Aspirin (Halfprin) 81 mg DAILY PO Last administered on 02/17/17 08:26; Admin Dose 81 MG; Start 01/18/17 at 09:00 Buspirone HCl (Buspar) 10 mg TID PO Last administered on 02/17/17 08:26; Admin Dose 10 MG; Start 01/18/17 at 09:00 Clonazepam (Klonopin) 1 mg BID PRN PO ANXIETY Last administered on 02/17/17 08 :31; Admin Dose 1 MG; Start 01/18/17 at 00:30 Duloxetine HCl (Cymbalta) 120 mg DAILY PO Last administered on 02/17/17 08:26 ; Admin Dose 120 MG; Start 01/18/17 at 09:00 Folic Acid (Folic Acid) 1 mg DAILY PO Last administered on 02/17/17 08:25; Admin Dose 1 MG; Start 01/18/17 at 09:00 Pregabalin (Lyrica) 50 mg BID PO Last administered on 02/17/17 08:25; Admin Dose 50 MG; Start 01/18/17 at 09:00 Ropinirole HCl (Requip) 0.25 mg HS PO Last administered on 02/16/17 21:27; Admin Dose 0.25 MG; Start 01/18/17 at 21:00 Tamsulosin HCl (Flomax) 0.4 mg HS PO Last administered on 02/16/17 21:24; Admin Dose 0.4 MG; Start 01/18/17 at 21:00 Atorvastatin Calcium (Lipitor) 5 mg QHS PO Last administered on 02/16/17 21:24 ; Admin Dose 5 MG; Start 01/18/17 at 21:00 Risperidone (Risperdal) 2 mg BID PO Last administered on 02/17/17 08:26; Admin Dose 2 MG; Start 01/18/17 at 00:30 Hydromorphone HCl (Dilaudid) 0.5 mg Q4H PRN IV PAIN Last administered on 04:29; Admin Dose 0.5 MG; Start 01/18/17 at 00:30 Morphine Sulfate (morphine) 4 mg Q4H PRN IV pain Last administered on 19:33; Admin Dose 4 MG; Start 01/18/17 at 14:00 Docusate Sodium (Colace) 250 mg DAILY PO Last administered on 02/17/17 08:26; Admin Dose 250 MG; Start 01/19/17 at 09:00 Oxycodone HCl (Oxycontin) 10 mg BID PO Last administered on 02/17/17 08:27; Admin Dose 10 MG; Start 01/18/17 at 14:23 Zinc Sulfate (Zinc Sulfate) 220 mg DAILY PO Last administered on 02/17/17 08: 25; Admin Dose 220 MG; Start 01/20/17 at 13:00 Polyethylene Glycol (Miralax) 8.5 gm DAILY PO Last administered on 02/17/17 08 :26; Admin Dose 8.5 GM; Start 01/21/17 at 09:00 Zolpidem Tartrate (Ambien) 5 mg HS PRN PO INSOMNIA Last administered on 21:43; Admin Dose 5 MG; Start 01/21/17 at 23:30 Sodium Hypochlorite (Dakin'S (1/4 Strength)) 1 applic DAILY IRR Last administered on 02/16/17 08:42; Admin Dose 1 APPLIC; Start 01/23/17 at 09:00 Collagenase (Santyl) 1 applic DAILY TOP Last administered on 02/16/17 08:43; Admin Dose 1 APPLIC; Start 01/23/17 at 09:00 Lactobacillus Acidophilus (Florajen3 Capsule) 1 each BID PO Last administered on 02/17/17 08:26; Admin Dose 1 EACH; Start 01/24/17 at 21:00 Acetaminophen/ Hydrocodone Bitart ([place] (5/325)) 1 tab Q4H PRN PO PAIN Last administered on 02/17/17 06:49; Admin Dose 1 TAB; Start 01/26/17 at 14:30 Lorazepam (Ativan) 1 mg QHS PRN PO INSOMNIA Last administered on 02/16/17 22: 26; Admin Dose 1 MG; Start 01/27/17 at 21:30 Heparin Sodium (Porcine) (Heparin (5000 Units/0.5 ml)) 5,000 unit BID SC Last administered on 02/16/17 21:33; Admin Dose 5,000 UNIT; Start 01/30/17 at 21:00 Famotidine (Pepcid) 20 mg HS PO Last administered on 02/16/17 21:24; Admin Dose 20 MG; Start 01/30/17 at 21:00 Hydralazine HCl (Apresoline) 10 mg Q6H PRN IV SBP greater than 160; Start 01/30 at 12:30 Ondansetron HCl (Zofran Inj) 4 mg Q6H PRN IV NAUSEA AND/OR VOMITING; Start at 18:30 Bisacodyl (Dulcolax Supp) 10 mg DAILY PRN [place] CONSTIPATION; Start 02/09/17 at 16: 30 Senna (Senokot) 2 tab BID PO Last administered on 02/17/17 08:26; Admin Dose 2 TAB; Start 02/09/17 at 21:00 Ferrous Sulfate (Ferrous Sulfate (Ec)) 325 mg BID PO Last administered on 08:26; Admin Dose 325 MG; Start 02/13/17 at 10:30 BELEN DIAZ NP Feb 17, 2017 09:36
[2017-02-17] MEDS: HEPARIN 5,000 UNIT/0.5 ML VIAL SC SCH (09:39)
--- NOTE | 2017-02-17 12:36 | PN ---
Date/Time of Note Date/Time of Note DATE: 02/17/17 TIME: 12:32 Assessment/Plan Lines/Catheters IV Catheter Type (from [facility]): Saline Lock Chambers in Place (from [facility]): No Assessment/Plan Chief Complaint/Hosp Course 1. Sacral wound: s/p debridement 01/22, wound improving/healing well; awaiting placement -continue local care -frequent turning and repositioning -specialty bed -nutrition optimization 2. Sacral cellulitis: s/p debridement &abx 3. Leukocytopenia:resolved 4. Normocytic anemia: no acute bleed noted:s/p PRBC transfusion 01/19; stable 5. Hypoalbuminemia: likely 2/2 malnutrition, improved 6. UTI: s/p abx Patient seen and examined in collaboration with Dr. El Root. Thank you Problems: Subjective 24 Hr Interval Summary Feels well. Up to chair for meal. No discomfort from wound. Intermittent back pain. No fevers, chills, cough, n/v/d/dysuria, no excessive drainage from wound. Exam/Review of Systems Vital Signs Vitals Vital Signs Date Time Temp Pulse Resp B/P Pulse Ox O2 Delivery O2 Flow Rate FiO2 02/17/17 07:29 98.5 69 18 111/65 98 Intake and Output 02/16/17 02/16/17 02/17/17 15:00 23:00 07:00 Intake Total 1200 ml 1000 ml Output Total 700 ml 1800 ml Balance 500 ml -800 ml Exam Free Text/Dictation Constitutional: alert, oriented Psych: labile mood Head: atraumatic, normocephalic Eyes: PERRL, nl lids, nl sclera ENMT: mucosa pink and moist, nl nasal mucosa & septum Neck: non-tender, supple Respiratory: normal air movement Cardiovascular: nl pulses, regular rate and rhythm Gastrointestinal: non-tender, soft Musculoskeletal: nl extremities to inspection Extremities: normal pulses Neurological: nl speech, nl strength Skin: other (sacral wound with pink wound bed, maceration periwound continuing to improve, no drainage, no odor, continuing to heal well) Lymph: nl lymph nodes Results Result Diagram: 02/13/17 1332 02/17/17 0532 DORINA LITTLEJOHN NP Feb 17, 2017 12:36
[2017-02-17 14:43] VITALS: BP 99/59; RESP 18
--- NOTE | 2017-02-17 16:43 | PDOCDIS ---
Discharge Instructions DIAGNOSIS Discharge Diagnosis Sacrococcygeal stage IV decubitus ulcer with necrotic tissue. CONDITION Patient Condition: Stable HOME CARE INSTRUCTIONS: Diet Instructions: RegularSpecial Diet: regular OTHER ORDERS: Other Orders: 1. Resume prehospitalization medications. 2. Activities as tolerated. 3. Local wound dressings as per instructions. 4. Follow-up with your PCP in 1 week. BELEN DIAZ NP Feb 17, 2017 16:43
--- NOTE | 2017-02-18 12:32 | DS ---
DATE OF ADMISSION: 01/17/2017 DATE OF DISCHARGE: 02/17/2017 FINAL DIAGNOSES: 1. Sacrococcygeal stage IV decubitus ulcer with necrotic tissue, status post debridement. 2. Bilateral gluteal cellulitis. 3. Status post urinary tract infection. 4. Acute nonoliguric kidney injury. 5. Normocytic, normochromic anemia. 6. Benign prostatic hypertrophy. 7. Debility. 8. Possible underlying psychiatric disorder. CONSULTANTS: 1. Dr. Demetris Raygoza, Infectious Diseases. 2. Dr. El Root, General Surgery. HOSPITAL COURSE: This is a 66-year-old male who presented to the emergency room with chief complaint of an infected wound on his buttock. He was sent by his primary care doctor. The patient had significant pain at the site. The patient also verbalized chills at home, as well as subjective fevers. The patient verbalized that he started noticing this wound approximately 1 month ago that became worse with course of time. In the emergency room, the patient was noticed to have leukocytosis. The patient also had a mild fever in the emergency room. The patient underwent CT scan of the pelvis in the emergency room that showed cellulitis surrounding an ulceration which extends into the subcutaneous fat abutting the dorsal surface of coccyx without evidence of an associated subcutaneous abscess or osteomyelitis. Provided the patient's history of present illness, his comorbidities, and the diagnostic findings, a clinical decision was made to admit the patient to inpatient setting to have him further evaluated. The patient was admitted to inpatient setting. A General Surgery consult, as well as Infectious Disease consult was called on this patient. The patient's wound cultures showed positive E. coli. The patient was evaluated by General Surgery and the patient underwent an excisional debridement of skin, subcutaneous tissue, muscle, and fascia of the sacrococcyx on 01/22/2017. Local dressing changes were done as per the instructions of the wound care team and General Surgery. Meanwhile, the patient's urine culture showed Enterobacter cloacae. The patient was maintained on antibiotics as per Infectious Diseases. The patient was noted to have acute nonoliguric kidney injury. The patient's baseline creatinine was unknown. The patient most probably has chronic kidney disease. Nephrotoxic drugs were used with caution on this patient. The patient was also noticed normocytic, normochromic anemia. The patient received a total of 1 unit of PRCs transfusion during this hospitalization. The patient was also noticed to have iron deficiency. The patient was maintained on iron supplements for the same. The patient has underlying prostatic hypertrophy. The patient was continued on tamsulosin for the same. The patient had debility. The patient was seen and evaluated by physical therapy. The patient underwent multiple physical therapy sessions. The patient also has underlying psychiatric disorder. The patient was continued on his mood stabilizers for the same. The patient was not a safe discharge home. Meanwhile case management was trying to discharge the patient to a retirement facility. However, because of insurance reasons, the patient did not have any Medicare days for retirement facility placement. Finally, the patient will be discharged to Transitional Care/Intermediate Care Facility. The patient was cleared by consultants to be discharged. DISCHARGE DISPOSITION/PLAN: The patient will be discharged today. The patient was instructed medications as per prescriptions. He was instructed to followup with his primary care physician in 1 week. He was instructed to do the dressing changes per instructions. The patient has help available for dressing changes as per the case management director. The patient was instructed to take a regular diet as tolerated. The patient verbalized understanding of his discharge instructions. CONDITION AT DISCHARGE: Stable. DISCHARGE MEDICATIONS: 1. Collagenase application topically daily. 2. MiraLax 17 gram p.o. daily. 3. Dakin solution 1 application for irrigation daily at the wound site. 4. Zinc sulfate 220 mg p.o. daily. 5. Abilify 5 mg p.o. daily. 6. Aspirin 81 mg p.o. daily. 7. Buspar 10 mg p.o. t.i.d. 8. Clonazepam 1 mg p.o. b.i.d. p.r.n. anxiety. 9. Duloxetine 120 mg p.o. daily. 10. Famotidine 20 mg p.o. daily. 11. Ferrous sulfate 325 mg p.o. daily. 12. Folic acid 1 mg p.o. daily. 13. [place] 10/325 one tablet p.o. b.i.d. 14. Multivitamin 1 tablet p.o. daily. 15. Lyrica 50 mg p.o. b.i.d. 16. Requip 0.25 mg p.o. at bedtime. 17. Zocor 10 mg p.o. at bedtime. 18. Tamsulosin 0.4 mg p.o. at bedtime. 19. Risperdal 2 mg p.o. b.i.d. PERTINENT LABORATORY, DIAGNOSTIC DATA, AND PROCEDURES: 1. Sacrococcygeal stage IV decubitus ulcer with necrotic tissue. Excisional debridement of skin, subcutaneous tissue, muscle, and fascia of the sacrococcyx, 10 x 5 cm. 2. Sacral wound culture positive for E. coli. 3. Urine culture positive for Enterobacter cloacae. 4. CT scan of the pelvis upon admission. There is cellulitis surrounding an ulceration with extension into the subcutaneous fat abutting the dorsal surface of the coccyx without evidence of an associated subcutaneous abscess or osteomyelitis. Old healed internally fixated fracture to the neck of the left femur. Posterior spinal fusion from L4 to S1 with evidence of bilateral L5 laminectomy. Sever disc narrowing at L5 to S1 with bilateral bony nerve and noted canal stenosis and bilateral degenerative facet arthropathy at L5 to S1. 5. Chest x-ray on 01/17/2017. No acute cardiopulmonary disease. 6. Renal ultrasound. Mild bilateral hydronephrosis. Bilateral renal cysts. Mildly distended urinary bladder with dependent debris in the lumen. 7. CBC, WBC 3.3, hemoglobin 12.1, hematocrit 36.1, and platelet count 106. 8. BMP, sodium 143, potassium 4.2, chloride 105, anion gap 19, BUN 21, creatinine 1.6, glucose 131, and calcium 9.0. 9. Iron panel, iron 19, TIBC 176, iron saturation 11. At this time I would like to thank all the consultants for seeing the patient, doing the necessary procedures, and providing recommendations. The case and management of this patient was fully discussed with Dr. Bahman Garcia. Approximately 35 minutes were spent on coordinating the discharge of this patient. Dictated By: Ramakrishna Huerta NP /carmelo/sandra /Document#: [id number] JENNIFER
== END 2017-02-17 19:40 | DRG 579 ==
LOC: E/R 16:00 → TEL 21:06 → MS2 01-21 16:15
PROVIDERS: ADMIT Family Medicine; ATTEND Family Medicine
PROC: 30233N1 Transfusion of Nonautologous Red Blood Cells into Peripheral Vein, Percutaneous Approach (ICD-10-PCS; 2017-01-19)
PROC: 0KBP0ZZ Excision of Left Hip Muscle, Open Approach (ICD-10-PCS; principal; 2017-01-22)
PROC: 0KBN0ZZ Excision of Right Hip Muscle, Open Approach (ICD-10-PCS; 2017-01-22)
DX: L03.317 Cellulitis of buttock (principal); L89.154 Pressure ulcer of sacral region, stage 4; N17.9 Acute kidney failure, unspecified; D61.818 Other pancytopenia; E46 Unspecified protein-calorie malnutrition; E87.1 Hypo-osmolality and hyponatremia; D68.9 Coagulation defect, unspecified; N10 Acute pyelonephritis; N39.0 Urinary tract infection, site not specified; G89.29 Other chronic pain; Z79.891 Long term (current) use of opiate analgesic; K62.89 Other specified diseases of anus and rectum; Q76.0 Spina bifida occulta; E86.0 Dehydration; F20.9 Schizophrenia, unspecified; Z87.891 Personal history of nicotine dependence; B96.89 Other specified bacterial agents as the cause of diseases classified elsewhere; B19.20 Unspecified viral hepatitis C without hepatic coma; E83.51 Hypocalcemia; E88.09 Other disorders of plasma-protein metabolism, not elsewhere classified; B96.20 Unspecified Escherichia coli [E. coli] as the cause of diseases classified elsewhere; N40.1 Benign prostatic hyperplasia with lower urinary tract symptoms; R33.8 Other retention of urine; Z68.21 Body mass index [BMI] 21.0-21.9, adult
CPT/HCPCS: 36415; 36430; 71010; 72192; 76775; 80048; 80053; 80076; 80202; 81001; 83540; 83605; 83735; 84100; 84484; 85025; 85610; 85730; 86706; 86803; 86850; 86900; 86901; 86920; 87040; 87070; 87086; 87340; 93005; 96374; 96375; 96376; 97110; 97116; 97162; 97530; J0696; J1170; J1644; J1956; J2060; J2270; J2543; J2916; J3370; J3475; J7030; J7040; J7050; J7070; P9016

== ENCOUNTER 2017-02-25 21:23 | Emergency (ER) | payer MEDICARE, MEDICAID ==
[~2017-02-25] VITALS: Ht 172.7 cm; Wt 70.5 kg
[~2017-02-25 21:23] MED LIST changes: +ACET-2047 PO; +ARIP5TAB7 PO; +CLON1TAB3 PO; -CYAN100080 PO; -DIAZ10TA4 PO; +DULO60CA59 PO; -DULO60CA6 PO; +FAMO20TA18 PO; +FER325 PO; -FERR325T82 PO; -HYDR-3504 PO; +HYDR-902 PO; +L.AC460C PO; -MULT-761 PO; +MULTI PO; +POLY17PO6 PO; -PROC5TAB9 PO; -RANI150C11 PO; +RESPERIDOL PO; +SAN30GM TOP; +SIMV10TA PO; -SIMV20TA2 PO; +SODI473S16 IRR; +TAMS0.4C2 PO; -TRAZ100T15 PO; +ZINC220C11 PO
[2017-02-25 21:27] VITALS: Ht 172.7 cm; Wt 70.5 kg
--- NOTE | 2017-02-26 00:54 | ERD ---
ER Documentation Chief Complaint Date/Time DATE: 02/26/17 TIME: 00:51 Chief Complaint c/o rectal pain HPI coccyx wound s/p debridement wound nurse daily x 3 days, pt was hospitalized for sepsis and cellulitis, pt states pain has worsened after wound care nurse visit today ROS All systems reviewed and are negative except as per history of present illness. Medications Home Meds Active Scripts Polyethylene Glycol* (Miralax*) 17 Gm Powd.pack, 8.5 GM PO DAILY for 30 Days Prov:ELIZABET PASTRANA 02/08/17 Sodium Hypochlorite (H-CHLOR 12) 473 Ml Solution, 1 APPLIC IRR DAILY for 30 Days Prov:ELIZABET PASTRANA 02/08/17 Zinc Sulfate (ZINC-220) 220 Mg Cap, 220 MG PO DAILY for 30 Days, CAP Prov:ELIZABET PASTRANA 02/08/17 L Acidophil/B Lactis/B Longum (FLORAJEN3 CAPSULE) 460 Mg Capsule, 1 EACH PO BID for 30 Days, CAP Prov:ELIZABET PASTRANA 02/08/17 Collagenase* (Santyl*) 30 Gm Oint..gm., 1 APPLIC TOP DAILY for 30 Days Prov:ELIZABET PASTRANA 02/08/17 Reported Medications [Resperidol] No Conflict Check, 2 MG PO BID 01/17/17 Pregabalin* (Lyrica*) 50 Mg Capsule, 50 MG PO BID, CAP 01/17/17 Hydrocodone/Acetaminophen ([place] 10-325 Tablet) 1 Each Tablet, 1 EACH PO BID, TAB 01/17/17 Ropinirole Hcl* (Ropinirole Hcl*) 0.25 Mg Tablet, 0.25 MG PO HS, TAB 01/17/17 Tamsulosin Hcl* (Tamsulosin Hcl*) 0.4 Mg Cap.er.24h, 0.4 MG PO HS, CAP 01/17/17 Simvastatin* (Zocor*) 10 Mg Tablet, 10 MG PO QHS, #30 TAB 01/17/17 Multivitamins* (Theragran*) 1 Tab Tab, 1 TAB PO DAILY, TAB 01/17/17 Folic Acid* (Folic Acid*) 1 Mg Tablet, 1 MG PO DAILY, TAB 01/17/17 Ferrous Sulfate* (Ferrous Sulfate*) 325 Mg Tabec, 325 MG PO DAILY, TAB 01/17/17 Famotidine* (Famotidine*) 20 Mg Tablet, 20 MG PO DAILY, #30 TAB 01/17/17 Buspirone Hcl* (Buspirone Hcl*) 10 Mg Tab, 10 MG PO TID, TAB 01/17/17 Duloxetine Hcl* (Duloxetine Hcl*) 60 Mg Capsule.dr, 120 MG PO DAILY, #30 CAP 01/17/17 Clonazepam* (Clonazepam*) 1 Mg Tablet, 1 MG PO BID Y for ANXIETY, TAB 01/17/17 Aripiprazole* (Abilify*) 5 Mg Tab, 5 MG PO DAILY, #30 TAB 01/17/17 Aspirin* (Aspirin* EC) 81 Mg Tablet.dr, 81 MG PO DAILY, TAB 01/17/17 Acetaminophen* (Acetaminophen*) 650 Mg Tablet, 650 MG PO Q8H Y for FOR MILD PAIN ,FEVER ,HEDACHE, #30 TAB 01/17/17 Allergies Allergies: Coded Allergies: No Known Allergies (Verified Allergy, Unknown, 01/17/17) PMhx/Soc History of Surgery: Yes (SPINAL FUSION) Hx Neurological Disorder: Yes Hx Respiratory Disorders: No Hx Cardiac Disorders: Yes ([place] HTN HYPERCHOLESTEROL) Hx Psychiatric Problems: Yes (BIPOLAR SCHIZOPHERNIA ) Hx Miscellaneous Medical Probl: Yes (CKD, CAD, schizophrenia, anxiety, s/p hip and L-s surgery, cholecystectomy.) Hx Alcohol Use: No Hx Substance Use: No Hx Tobacco Use: Yes Smoking Status: Smoker,current status unk Physical Exam Vitals Vital Signs Date Time Temp Pulse Resp B/P Pulse Ox O2 Delivery O2 Flow Rate FiO2 02/25/17 21:27 98.0 104 20 134/85 99 Physical Exam Const: [] Head: Atraumatic Eyes: Normal Conjunctiva ENT: Normal External Ears, Nose and Mouth. Neck: Full range of motion..~ No meningismus. Resp: Clear to auscultation bilaterally Cardio: Regular rate and rhythm, no murmurs Abd: Soft, non tender, non distended. Normal bowel sounds Skin: No petechiae or rashes Back: No midline or flank tenderness Ext: No cyanosis, or edema Neur: Awake and alert Psych: Normal Mood and Affect Results 24 hrs Current Medications Medications (Trade) Dose Ordered Sig/Florencio Route PRN Reason Start Time Stop Time Status Last Admin Dose Admin Morphine Sulfate (morphine) 4 mg ONCE ONCE IM 02/26/17 01:00 02/26/17 01:01 DC 02/26/17 01:07 ALANNAH BARTHOLOMEW Feb 26, 2017 00:53
[2017-02-26] MEDS ORDERED: morphine 10 MG INJ IM ONE (01:00)
--- NOTE | 2017-02-26 02:27 | ERD ---
ER Documentation Chief Complaint Date/Time DATE: 02/26/17 TIME: 02:18 Chief Complaint c/o rectal pain HPI This 66-year-old male patient presents to emergency department for pain treatment. Patient reports coccyx wound s/p debridement wound nurse daily x 3 days, pt was hospitalized for sepsis and cellulitis, pt states pain has worsened after wound care nurse visit today ROS All systems reviewed and are negative except as per history of present illness. Medications Home Meds Active Scripts Hydrocodone/Acetaminophen ([place] 5-325 Tablet) 1 Each Tablet, 1 TAB PO Q6H Y for PAIN, #7 TAB Prov:PUMAALANNAH 02/26/17 Polyethylene Glycol* (Miralax*) 17 Gm Powd.pack, 8.5 GM PO DAILY for 30 Days Prov:ELIZABET PASTRANA 02/08/17 Sodium Hypochlorite (H-CHLOR 12) 473 Ml Solution, 1 APPLIC IRR DAILY for 30 Days Prov:ELIZABET PASTRANA 02/08/17 Zinc Sulfate (ZINC-220) 220 Mg Cap, 220 MG PO DAILY for 30 Days, CAP Prov:ELIZABET PASTRANA 02/08/17 L Acidophil/B Lactis/B Longum (FLORAJEN3 CAPSULE) 460 Mg Capsule, 1 EACH PO BID for 30 Days, CAP Prov:ELIZABET PASTRANA 02/08/17 Collagenase* (Santyl*) 30 Gm Oint..gm., 1 APPLIC TOP DAILY for 30 Days Prov:ELIZABET PASTRANA 02/08/17 Reported Medications [Resperidol] No Conflict Check, 2 MG PO BID 01/17/17 Pregabalin* (Lyrica*) 50 Mg Capsule, 50 MG PO BID, CAP 01/17/17 Hydrocodone/Acetaminophen ([place] 10-325 Tablet) 1 Each Tablet, 1 EACH PO BID, TAB 01/17/17 Ropinirole Hcl* (Ropinirole Hcl*) 0.25 Mg Tablet, 0.25 MG PO HS, TAB 01/17/17 Tamsulosin Hcl* (Tamsulosin Hcl*) 0.4 Mg Cap.er.24h, 0.4 MG PO HS, CAP 01/17/17 Simvastatin* (Zocor*) 10 Mg Tablet, 10 MG PO QHS, #30 TAB 01/17/17 Multivitamins* (Theragran*) 1 Tab Tab, 1 TAB PO DAILY, TAB 01/17/17 Folic Acid* (Folic Acid*) 1 Mg Tablet, 1 MG PO DAILY, TAB 01/17/17 Ferrous Sulfate* (Ferrous Sulfate*) 325 Mg Tabec, 325 MG PO DAILY, TAB 01/17/17 Famotidine* (Famotidine*) 20 Mg Tablet, 20 MG PO DAILY, #30 TAB 01/17/17 Buspirone Hcl* (Buspirone Hcl*) 10 Mg Tab, 10 MG PO TID, TAB 01/17/17 Duloxetine Hcl* (Duloxetine Hcl*) 60 Mg Capsule.dr, 120 MG PO DAILY, #30 CAP 01/17/17 Clonazepam* (Clonazepam*) 1 Mg Tablet, 1 MG PO BID Y for ANXIETY, TAB 01/17/17 Aripiprazole* (Abilify*) 5 Mg Tab, 5 MG PO DAILY, #30 TAB 01/17/17 Aspirin* (Aspirin* EC) 81 Mg Tablet.dr, 81 MG PO DAILY, TAB 01/17/17 Acetaminophen* (Acetaminophen*) 650 Mg Tablet, 650 MG PO Q8H Y for FOR MILD PAIN ,FEVER ,HEDACHE, #30 TAB 01/17/17 Allergies Allergies: Coded Allergies: No Known Allergies (Verified Allergy, Unknown, 01/17/17) PMhx/Soc History of Surgery: Yes (SPINAL FUSION) Hx Neurological Disorder: Yes Hx Respiratory Disorders: No Hx Cardiac Disorders: Yes ([place] HTN HYPERCHOLESTEROL) Hx Psychiatric Problems: Yes (BIPOLAR SCHIZOPHERNIA ) Hx Miscellaneous Medical Probl: Yes (CKD, CAD, schizophrenia, anxiety, s/p hip and L-s surgery, cholecystectomy.) Hx Alcohol Use: No Hx Substance Use: No Hx Tobacco Use: Yes Smoking Status: Smoker,current status unk Physical Exam Vitals Vital Signs Date Time Temp Pulse Resp B/P Pulse Ox O2 Delivery O2 Flow Rate FiO2 02/25/17 21:27 98.0 104 20 134/85 99 Vitals stable, triage notes reviewed Physical Exam Const: Well-nourished well-appearing male patient in obvious discomfort Head: Eyes: ENT: Neck: Resp: Cardio: Abd: Skin: Open deep pink coccyx wound with wet-to-dry dressing in place. No surrounding erythema or exudate noted in tissue. No eschar. Wound appears to be healing as expected. Back: Ext: Neur: Awake and alert Psych: Normal Mood and Affect Result Diagram: 02/26/17 0158 Results 24 hrs Laboratory Tests Test 02/26/17 01:58 White Blood Count 5.110^3/ul Red Blood Count 3.3710^6/ul Hemoglobin 10.8g/dl Hematocrit 32.4% Mean Corpuscular Volume 96.1fl Mean Corpuscular Hemoglobin 32.0pg Mean Corpuscular Hemoglobin Concent 33.3g/dl Red Cell Distribution Width 13.2% Platelet Count 9510^3/UL Mean Platelet Volume 10.1fl Neutrophils % 55.6% Lymphocytes % 31.2% Monocytes % 7.7% Eosinophils % 4.7% Basophils % 0.4% Nucleated Red Blood Cells % 0.0/100WBC Neutrophils # (Manual) 310^3/ul Lymphocytes # 1.610^3/ul Monocytes # 0.410^3/ul Eosinophils # 0.210^3/ul Basophils # 0.010^3/ul Nucleated Red Blood Cells # 0.010^3/ul Current Medications Medications (Trade) Dose Ordered Sig/Florencio Route PRN Reason Start Time Stop Time Status Last Admin Dose Admin Morphine Sulfate (morphine) 4 mg ONCE ONCE IM 02/26/17 01:00 02/26/17 01:01 DC 02/26/17 01:07 Hydromorphone HCl (Dilaudid) 0.5 mg ONCE STAT IM 02/26/17 02:33 02/26/17 02:34 DC 02/26/17 02:43 Interpretation text CBC shows no evidence of hemorrhage or infection Procedures/MDM This 66-year-old male patient presents to emergency department for pain treatment. Patient is status post a sacrococcygeal stage IV decubitus ulcer with necrotic tissue, status post debridement and hospitalization from 01/17/17 discharged 02/17/17. Patient is brought in by significant other. Believes patient has a perianal abscess. Teaching provided this was a pressure sore with debridement from a surgeon. Patient and significant other are poor historians and unsure of patient's medical progression the month he was hospitalized. Chart reviewed notes that he was to follow-up with his primary care physician in one week he has not done that at this point. Has not been seen by anyone but wound nurse, were numerous reportedly has come 3 times, current pain started after today's dressing change. I have little suspicion for wound infection, or sepsis. Physical exam findings pink viable tissue healing as expected. CBC is negative for evidence of leukocytosis, patient has a documented pre-existing anemia. Treated for pain with 4 of morphine with little change in symptoms,-year-old 0.5 mg of Dilaudid given intramuscular while in emergency department, medication improved pain symptoms. Is discharged home with teaching to Departure Diagnosis: Primary Impression: Coccyx pain Additional Impression: Hx of decubitus ulcer Condition: Stable Patient Instructions: Decubitus Ulcer Additional Instructions: Thank you for for coming to [facility] for your care today. Please ask your nurse or provider if you have questions about your care today and do not leave until all your questions have been answered. Please use any medications given as directed and follow-up with your doctor (or the doctor you were referred to) in the next 2-3 days. If you do not have a primary care doctor you may follow up at the [facility] (listed below). You may also use motrin and tylenol as needed for fever and/or pain unless instructed otherwise by your provider or nurse. Indications for more urgent follow-up have been discussed, but you may return to the Emergency Department at ANY time for any worrisome or worsening symptoms. If you have abdominal pain, please know that no test or exam you received is perfect and you should follow up within 8 hours for continued pain. If you had any imaging studies today, such as an X-Ray or CT Scan, these studies will be reviewed later by a radiologist. You will be called if there are important findings that were not identified today, so make sure the contact information you provided at registration is correct. If you received any narcotic pain control medicine today, such as Vicodin, Morphine or Dilaudid, your coordination and judgment may be affected for a number of hours. Please do not drive or operate heavy machinery, and you may want someone to assist you at home. If you were given a prescription for narcotic medication, be aware that it is very addictive- use sparingly and only if necessary. ALANNAH BARTHOLOMEW Feb 26, 2017 02:27
[2017-02-26] MEDS ORDERED: HYDROmorphONE 1 MG/ML SYG IM STA (02:33)
[2017-02-26] MEDS ORDERED: HYDR-906 PO (02:36)
[2017-02-26 02:54] LABS: ABNORMAL IP MESSAGE 1; BASOPHILS % 0.4 % (0.0-2.0); EOSINOPHILS # 0.2 10^3/ul (0.0-0.5); EOSINOPHILS % 4.7 % (0.0-7.0); HEMATOCRIT 32.4 % (42.0-52.0); HEMOGLOBIN 10.8 g/dl (14.0-18.0); LYMPHOCYTES # 1.6 10^3/ul (0.8-2.9); LYMPHOCYTES % 31.2 % (15.0-51.0); MEAN CORPUSCULAR HGB CONC 33.3 g/dl (32.0-37.0); MEAN CORPUSCULAR VOLUME 96.1 fl (82.0-101.0); MEAN PLATELET VOLUME 10.1 fl (7.4-10.4); MONOCYTE # 0.4 10^3/ul (0.3-0.9); MONOCYTES % 7.7 % (0.0-11.0); NEUTROPHILS % 55.6 % (39.0-77.0); POSITIVE DIFF @See below; RED BLOOD COUNT 3.37 10^6/ul (4.70-6.10); RED CELL DISTRIBUTION WIDTH 13.2 % (11.5-14.5); WHITE BLOOD COUNT 5.1 10^3/ul (4.8-10.8)
[2017-02-26 02:58] LABS: PLATELET COUNT 95 10^3/UL (140-415)
[2017-02-26 04:14] VITALS: BP 158/92; PULSE 72; RESP 20; TEMP 98.7
== END 2017-02-26 04:00 | disposition home or self-care (01) ==
LOC: FTE 21:23
DX: M53.3 Sacrococcygeal disorders, not elsewhere classified (principal); L89.150 Pressure ulcer of sacral region, unstageable; I12.9 Hypertensive chronic kidney disease with stage 1 through stage 4 chronic kidney disease, or unspecified chronic kidney disease; N18.9 Chronic kidney disease, unspecified; I25.10 Atherosclerotic heart disease of native coronary artery without angina pectoris; F17.210 Nicotine dependence, cigarettes, uncomplicated; Z79.82 Long term (current) use of aspirin
CPT/HCPCS: 85025; 96372; 99284; J1170; J2270

== ENCOUNTER 2017-05-20 11:42 | Emergency (ER) | END 2017-05-20 16:43 | disposition home or self-care (01) | DX: F41.9 Anxiety disorder, unspecified (principal); F23 Brief psychotic disorder; I12.9 Hypertensive chronic kidney disease with stage 1 through stage 4 chronic kidney disease, or unspecified chronic kidney disease; N18.9 Chronic kidney disease, unspecified; I25.10 Atherosclerotic heart disease of native coronary artery without angina pectoris; F17.210 Nicotine dependence, cigarettes, uncomplicated; R40.2252 Coma scale, best verbal response, oriented, at arrival to emergency department; R40.2142 Coma scale, eyes open, spontaneous, at arrival to emergency department; R40.2362 Coma scale, best motor response, obeys commands, at arrival to emergency department; Z79.82 Long term (current) use of aspirin | CPT/HCPCS: 80053; 80306; 80307; 84484; 85025; 93005; 96374; 96376; 99284; J2060; J7030 ==

== ENCOUNTER 2018-02-01 12:57 | Emergency (ER) | END 2018-02-01 17:00 | disposition short-term general hospital (02) ==

== ENCOUNTER 2018-02-25 16:34 | Emergency (ER) | END 2018-02-25 20:24 | disposition home or self-care (01) ==

== ENCOUNTER 2018-03-04 12:01 | Emergency (ER) | END 2018-03-05 07:00 ==

== ENCOUNTER 2018-06-02 19:03 | Emergency (ER) | END 2018-06-02 20:21 | disposition left against medical advice (07) ==

== ENCOUNTER 2018-10-26 21:34 | Inpatient (IN) | payer MEDICARE, OTHER ==
[~2018-10-26] VITALS: Ht 182.9 cm; Wt 89.6 kg
[~2018-10-26 21:34] MED LIST changes: -ACET-2047 PO; -ARIP5TAB7 PO; -ASPI-664 PO; -BUSP10TA2 PO; +CLON-412 PO; -CLON1TAB3 PO; -DULO60CA59 PO; -FAMO20TA18 PO; -FER325 PO; -FOLI-49 PO; -HYDR-902 PO; -L.AC460C PO; +LEVO750T25 PO; +METR-121 PO; -MULTI PO; +OMEP20CA16 PO; -POLY17PO6 PO; -PREG50CA PO; -RESPERIDOL PO; +RISP2TAB3 PO; -ROPI0.25 PO; -SAN30GM TOP; -SIMV10TA PO; +SIMV20TA PO; -SODI473S16 IRR; -TAMS0.4C2 PO; -ZINC220C11 PO
[2018-10-26] MEDS ORDERED: SOD CHLORIDE 0.9% 500 ML IV STA (21:49)
[2018-10-26] MEDS ORDERED: ONDANSETRON 4 MG INJ IV STA (21:49)
[2018-10-26] MEDS ORDERED: morphine 4 MG/ML VIAL IV STA (21:49)
[2018-10-26] MEDS ORDERED: HYDROmorphONE 0.5 MG/0.5 ML SYG IV STA (23:43)
--- NOTE | 2018-10-26 23:51 | ERD ---
ER Documentation Chief Complaint Chief Complaint DARWIN from [facility],on the way to [place] for anxiety,Pulse 39 bpm,VALLADARES HPI 68-year-old gentleman presents from long term facility. It appears that he was being transferred to another hospital for anxiety but the EMS diverted because of a low heart rate in the 30 range. Patient arrives with heart rate in the 30. He denies any chest pain or shortness of breath. He is describing a gradual onset bitemporal headache that is been present for several weeks if not longer. He denies any shortness of breath pleuritic pain, abdominal pain. He denies taking any beta-kiersten medication. ROS All systems reviewed and are negative except as per history of present illness. Medications Home Meds Active Scripts Metronidazole (Flagyl) 500 Mg Tab, 500 MG PO Q8 for 7 Days, TAB Prov:TESS HALL MD 06/02/18 Levofloxacin* (Levaquin*) 750 Mg Tablet, 750 MG PO DAILY for 7 Days, TAB Prov:TESS HALL MD 06/02/18 Reported Medications Simvastatin* (Zocor*) 20 Mg Tablet, 20 MG PO QHS, #30 TAB 06/02/18 Risperidone* (Risperidone*) 2 Mg Tablet, 2 MG PO BID, TAB 06/02/18 Omeprazole* (Omeprazole*) 20 Mg Capsule.dr, 20 MG PO DAILY, #30 CAP 06/02/18 Clonazepam* (Klonopin*) 1 Mg Tablet, 1 MG PO DAILY PRN for ANXIETY, TAB 06/02/18 Allergies Allergies: Coded Allergies: No Known Allergies (Verified Allergy, Unknown, 06/02/18) PMhx/Soc History of Surgery: Yes (SPINAL FUSION) Anesthesia Reaction: No Hx Neurological Disorder: Yes (NEUROPATHY) Hx Respiratory Disorders: No Hx Cardiac Disorders: Yes (OR, HTN, HYPERLIPIDEMIA) Hx Psychiatric Problems: Yes (BIPOLAR SCHIZOPHERNIA ) Hx Miscellaneous Medical Probl: Yes (CKD, CAD, schizophrenia, anxiety, s/p hip and L-s surgery, cholecystectomy.) Hx Alcohol Use: No Hx Substance Use: No Hx Tobacco Use: Yes Smoking Status: Current every day smoker FmHx Family History: No diabetes Physical Exam Vitals Vital Signs Date Temp Pulse Resp B/P (MAP) Pulse Ox O2 O2 Flow FiO2 Time Delivery Rate 10/26/18 77 13 156/92 97 Room Air 23:10 (113) 10/26/18 98.0 39 18 162/72 99 21:43 (102) Physical Exam General: Very anxious Head: Normocephalic, atraumatic. Eyes: Pupils equally reactive, EOM intact ENT: Moist mucous membranes Neck: Supple, no lymphadenopathy Respiratory: Lungs clear bilaterally, no distress Cardiovascular: Bradycardia, no murmurs, rubs, or gallops Abdominal: Soft, non-tender, non-distended, no peritoneal signs : Deferred MSK: No edema, no unilateral swelling, 5/5 strength Neurologic: Alert and oriented, moving all extremities, normal speech, no focal weakness, no cerebellar signs Skin: No rash Psych: Normal mood Result Diagram: 10/26/18230310/26/182303 Results 24 hrs Laboratory Tests Test 10/26/18 23:04 White Blood Count 3.8 10^3/ul Red Blood Count 3.45 10^6/ul Hemoglobin 11.3 g/dl Hematocrit 33.0 % Mean Corpuscular Volume 95.7 fl Mean Corpuscular Hemoglobin 32.8 pg Mean Corpuscular Hemoglobin Concent 34.2 g/dl Red Cell Distribution Width 12.8 % Platelet Count 61 10^3/UL Mean Platelet Volume 9.3 fl Immature Granulocytes % 0.500 % Neutrophils % 57.3 % Lymphocytes % 29.3 % Monocytes % 9.2 % Eosinophils % 3.2 % Basophils % 0.5 % Nucleated Red Blood Cells % 0.0 /100WBC Immature Granulocytes # 0.020 10^3/ul Neutrophils # 2.2 10^3/ul Lymphocytes # 1.1 10^3/ul Monocytes # 0.4 10^3/ul Eosinophils # 0.1 10^3/ul Basophils # 0.0 10^3/ul Nucleated Red Blood Cells # 0.0 10^3/ul Prothrombin Time 14.0 Sec Prothrombin Time Ratio 1.1 INR International Normalized Ratio 1.07 Activated Partial Thromboplast Time 38.3 Sec Sodium Level 140 mmol/L Potassium Level 4.5 mmol/L Chloride Level 110 mmol/L Carbon Dioxide Level 24 mmol/L Anion Gap 6 Blood Urea Nitrogen 30 mg/dl Creatinine 2.71 mg/dl Est Glomerular Filtrat Rate mL/min 24 mL/min Glucose Level 92 mg/dl Calcium Level 9.0 mg/dl Magnesium Level 1.5 mg/dl Troponin I Pending Current Medications Medications Dose Sig/Florencio Start Time Status Last (Trade) Ordered Route PRN Stop Time Admin Dose Reason Admin Sodium 500 ml @ Q1H STAT 10/26/18 DC 10/26/18 Chloride 500 mls/hr IV 21:49 22:20 10/26/18 22:48 Ondansetron 4 mg ONCE STAT 10/26/18 DC 10/26/18 HCl (Zofran IV 21:49 22:19 Inj) 10/26/18 21:51 Morphine 4 mg ONCE STAT 10/26/18 DC 10/26/18 Sulfate IV 21:49 22:19 (morphine) 10/26/18 21:51 0.5 mg ONCE STAT 10/26/18 UNV Hydromorphone IV 23:43 HCl 10/26/18 23:44 (Dilaudid) Magnesium 50 ml @ 25 ONCE ONCE 10/27/18 UNV Sulfate mls/hr IVPB 00:00 10/27/18 01:59 Procedures/MDM EKG, MONITORS, & DIAGNOSTIC IMAGING: EKG: I reviewed and interpreted a 12-lead EKG. Rhythm: Sinus bradycardia, sinus arrhythmia ST Changes: No contiguous ST segment elevations T waves: No contiguous T wave inversions Impression: [Abnormal EKG Chest x-ray: I reviewed and interpreted a 1 view of the chest Mediastinum: No enlargement Cardiac silhouette: No cardiomegaly Airspace: Clear lung natarajan bilaterally without evidence of pneumothorax Bones: No evidence of fracture CT brain: No acute process per radiologist read LAB INTERPRETATION: I reviewed the laboratory testing and it shows hypomagnesemia, chronic renal insufficiency MEDICAL DECISION MAKING: The patient's headache is unlikely related to serious etiology. The patient does not exhibit any clinical signs or symptoms, and has no risk factors to suggest headache etiology such as subarachnoid hemorrhage, acute vertebral or carotid dissection, intracranial mass, epidural, subdural hematoma, dural venous sinus thrombosis, giant cell arteritis, or pseudotumor cerebri. Patient presents with asymptomatic bradycardia of unclear etiology. Low magnesium could certainly be playing a role. IV replacement therapy has been ordered. Given the patient's age and bradycardia he would benefit from hospitalization echo and cardiology consultation, consider sick sinus syndrome. ER COURSE: * The patient's headache appears to be chronic and was treated with appropriate medication. CT brain is negative. * Magnesium replacement given * Patient can be safely admitted for further management. CONSULTATION: None DISPOSITION PLAN: Accepting care team and consultations: I discussed the current laboratory data, diagnostic imaging and emergency care provided. Admitting team: Dr. Michael Admitting team indication: Insurance directed Departure Diagnosis: Primary Impression: Anxiety Additional Impressions: Headache Headache type: unspecified Headache chronicity pattern: chronic headache Intractability: not intractable Qualified Codes: R51 - Headache Pancytopenia Bradycardia Chronic renal insufficiency Chronic kidney disease stage: unspecified stage Qualified Codes: N18.9 - Chronic kidney disease, unspecified Condition: Stable TIESHA SCHULER MD Oct 26, 2018 23:51
--- NOTE | 2018-10-26 23:59 | HP ---
Date/Time of Note Date/Time of Note DATE: 10/26/18 TIME: 23:59 Assessment/Plan VTE Prophylaxis SCD applied (from Nsg): Yes Pharmacological prophylaxis: NA/contraindicated Pharm contraindication: low risk/ambulating Lines/Catheters IV Catheter Type (from Nrsg): Saline Lock Assessment/Plan Hospital Course This is a 68-year-old male being admitted to the telemetry floor for observation for: #1 sinus bradycardia: Etiology unknown. At the current time his heart rate has converted to normal sinus rhythm. Will trend cardiac enzymes, the first that was negative. Will check an echocardiogram. Will check a TSH and monitor magnesium levels and potassium. Will monitor on telemetry. He does not appear to be currently on any medications at all because bradycardia however we will review further. Consult cardiology #2 chronic headache: CT scan is negative. Could be related to patient's hypertension. Will monitor patient blood pressures. I will order an MRI of the brain to further evaluate. #3 schizophrenia: Continue risperidone, clonazepam, Cymbalta 4. Acute on chronic kidney disease: Likely secondary to hypertensive nephrosclerosis, creatinine 2.71 slightly elevated from previous. He was currently on Levaquin for an unknown reason. I will hold this. We will get a renal ultrasound. Nephrology consultation. #5 hypertension: Continue home medications, and adjust #6 history of CVA: Continue home meds,, patient embolus with a walker #7 mood disorder: Patient along with schizophrenia has depression and PTSD: Again continue patient's home medications as listed #3, psych evaluation, will put a consultation in. #8 chronic debility: Patient does ambulate with a walker #9 DVT GI prophylaxis: SCDs, no GI prophylaxis indicated Further treatment strategy will be implemented as per the clinical course. Result Diagram: 10/26/18230310/26/184 Results 24hrs Laboratory Tests Test 10/26/18 23:04 White Blood Count 3.8 #L Red Blood Count 3.45 #L Hemoglobin 11.3 #L Hematocrit 33.0 L Mean Corpuscular Volume 95.7 Mean Corpuscular Hemoglobin 32.8 Mean Corpuscular Hemoglobin Concent 34.2 Red Cell Distribution Width 12.8 Platelet Count 61 #L Mean Platelet Volume 9.3 Immature Granulocytes % 0.500 H Neutrophils % 57.3 Lymphocytes % 29.3 Monocytes % 9.2 Eosinophils % 3.2 Basophils % 0.5 Nucleated Red Blood Cells % 0.0 Immature Granulocytes # 0.020 Neutrophils # 2.2 Lymphocytes # 1.1 Monocytes # 0.4 Eosinophils # 0.1 Basophils # 0.0 Nucleated Red Blood Cells # 0.0 Prothrombin Time 14.0 Prothrombin Time Ratio 1.1 INR International Normalized Ratio 1.07 Activated Partial Thromboplast Time 38.3 H Sodium Level 140 Potassium Level 4.5 Chloride Level 110 Carbon Dioxide Level 24 Anion Gap 6 Blood Urea Nitrogen 30 H Creatinine 2.71 H Est Glomerular Filtrat Rate mL/min 24 L Glucose Level 92 Calcium Level 9.0 Magnesium Level 1.5 L Troponin I < 0.012 HPI/ROS Admit Date/Time Admit Date/Time Hx of Present Illness Chief complaint: Headache, low pulse Is a 68-year-old gentleman presents from [facility]. It appears that he was being transferred to another hospital for anxiety but the EMS diverted because of a low heart rate in the 30 range. Patient arrives with heart rate in the 30. He denies any chest pain or shortness of breath. He is describing a gradual onset bitemporal headache that is been present for several weeks if not longer. He denies any shortness of breath pleuritic pain, abdominal pain. He denies taking any beta-kiersten medication. Patient reports the headache has been generalized headache though he denies any vision changes. His heart rate did did become normal sinus rhythm in the emergency department. He did receive magnesium as well. Denies any chest pain. He does appear to be very anxious, but denies any hallucinations at the current time. He continues to request medications for his headache. He reports that he ambulates with a walker Allergies: NKDA Medications: See MAR ROS Const: As per HPI Eyes : No pain discharge or redness or change in visual acuity ENT: No pain, sore throat, congestion, congestion, dysphagia or discharge Respiratory: No shortness of breath, cough, sputum, wheezing, or pleuritic pain Cardiovascular: No chest pain, palpitation, PND, or edema GI : no change in appetite, abdominal pain, nausea, vomiting, diarrhea, constipation, or change in the color his stool Genitourinary: No dysuria, hematuria, flank pain , discharge or CVA tenderness Musculoskeletal: No joint pain, back pain, neck pain, restricted range of motion in neck or joints Skin: No rash, bruising or hives Neuro: As per HPI Endocrine: No polyuria, polydipsia, temperature intolerance Psych: As per HPI PMH/Family/Social Past Medical History anxiety, history of CVA, hypertension, hyperlipidemia, chronic kidney disease, depression, PTSD, neuropathy, schizophrenia Medications Current Medications Magnesium Sulfate 50 ml @ 25 mls/hr ONCE ONCE IVPB ; Start 10/27/18 at 00:00; Stop 10/27/18 at 01:59 Ondansetron HCl (Zofran Inj) 4 mg ER BRIDGE PRN IV NAUSEA/VOMITING; Start at 00:00; Stop 10/27/18 at 23:59 Acetaminophen (Tylenol Tab) 650 mg ER BRIDGE PRN PO .MILD PAIN 1-3 OR TEMP; Start 10/27/18 at 00:00; Stop 10/27/18 at 23:59 Coded Allergies: No Known Allergies (Verified Allergy, Unknown, 06/02/18) Past Surgical History Past Surgical Hx: cholecystectomy Family History Significant Family History: no pertinent family hx Social History Alcohol Use: none Smoking Status: Current every day smoker Drug Use: none Exam/Review of Systems Vital Signs Vitals Vital Signs Date Temp Pulse Resp B/P (MAP) Pulse Ox O2 O2 Flow FiO2 Time Delivery Rate 10/26/18 77 13 156/92 97 Room Air 23:10 (113) 10/26/18 98.0 21:43 Exam Exam General: Patient is a very anxious male, he does grab the both sides of his head stating he has a headache HEENT: Atraumatic, normocephalic. The pupils are equal, round and reactive. Extraocular motor are intact Neck: Supple with full range of motion. No rigidity or meningismus Chest: Nontender Lungs: Clear to auscultation bilaterally no crackles rales or wheezing Heart: Currently normal sinus rhythm Abdomen: Soft , nontender, nondistended , bowel sounds are present. No guarding no rebound tenderness , No masses or organomegaly. No costovertebral temporal angle mass Extremities: Normal to inspection, no edema no cyanosis Neurologic: Normal mental status, speech normal, cranial nerves II through XII are intact, motor and sensory are intact, Additional Comments EKG: I Rhythm: Sinus bradycardia, sinus arrhythmia ST Changes: No contiguous ST segment elevations T waves: No contiguous T wave inversions Impression: [Abnormal EKG PROCEDURE: CT Brain without contrast. CLINICAL INDICATION: Headache. TECHNIQUE: A CT of the brain without contrast was performed utilizing axial sections from the skull base through the vertex. One or more the following does reduction techniques were utilized: Automated exposure control, adjustment of the mA/ or kV according to patient's size, or use of iterative reconstruction technique. Total exam CTDIvol is 39 MGy and DLP is 634 mGy-cm. DICOM images are available. COMPARISON: Brain CT 10/15/2015. FINDINGS: The ventricles and sulci are mildly prominent indicative of volume loss. There is no intracranial hemorrhage, mass effect or midline shift. No abnormal intra- axial or extra-axial fluid collections are seen. The ashton/white matter differentiation is preserved. There are mild foci of hypoattenuation in the white matter, which are nonspec ific in etiology but likely reflect chronic small vessel ischemic changes. There are mild intracranial vascular calcifications consistent with atherosclerosis. The visualized paranasal sinuses are essentially clear. IMPRESSION: 1. No acute intracranial hemorrhage, transcortical infarction or mass effect. 2. Mild intracranial atherosclerosis and chronic small vessel ischemic changes. 3. Mild generalized cerebral volume loss. RPTAT: HFN .Dillan Tomas MD, MD Date Time Electronically viewed and signed by .Dillan Tomas MD, on 10/26/2018 23:02 .N/ CC: TIESHA SCHULER MD [id number] PROCEDURE: XR Chest, 1 View CLINICAL INDICATION: Pain. TECHNIQUE: Frontal view of the chest. COMPARISON: 06/17/2016 FINDINGS: LUNGS: Mild atelectasis at the lung bases. No consolidative pulmonary infiltrates noted. PLEURAL SPACE: Unremarkable. No pneumothorax. HEART: Mild cardiomegaly is noted. MEDIASTINUM: Unremarkable. BONES/JOINTS: Unremarkable. VASCULATURE: The thoracic aorta is tortuous and atherosclerotic. IMPRESSION: 1. Mild atelectasis at the lung bases. No consolidative pulmonary infiltrates n oted. 2. No new abnormality demonstrated when compared to the previous study. RPTAT: [facility] Anne Shea Physician Date Time Electronically viewed and signed by Anne Shea Physician Blasting Miner on 10/26/2018 23:55 RmC/ CC: TIESHA SCHULER MD [id number] ANIYAH KING Oct 26, 2018 23:59
[2018-10-27] VITALS (10 sets, daily range): BP systolic 130–192; BP diastolic 70–90; PULSE 63–90; RESP 17–18; Ht 182.9 cm; Wt 89.6 kg
[2018-10-27] MEDS ORDERED: ACETAMINOPHEN 325 MG TAB PO PRN
[2018-10-27] MEDS ORDERED: ONDANSETRON 4 MG INJ IV PRN
[2018-10-27] MEDS ORDERED: NACL 0.9% 3 ML SYG IV SCH
[2018-10-27] MEDS ORDERED: HEPARIN 5,000 UNIT/1 ML VIAL SC SCH
[2018-10-27] MEDS ORDERED: ONDANSETRON 4 MG TAB PO PRN
[2018-10-27] MEDS ORDERED: DOCUSATE SODIUM 100 MG CAP PO PRN
[2018-10-27] MEDS ORDERED: MAGNESIUM SULFATE 2 GM/50 ML 50 ML IVPB ONE
[2018-10-27] MEDS: ACETAMINOPHEN 325 MG TAB PO PRN ×2 (02:53→17:28)
[2018-10-27] MEDS: traMADol 50 MG TAB PO PRN ×2 (04:12→13:03)
[2018-10-27] MEDS: hydrALAzine 20 MG INJ IV PRN (05:07)
[2018-10-27] MEDS ORDERED: ROPI0.253 PO (05:27)
[2018-10-27] MEDS ORDERED: TAMS-14 PO (05:27)
[2018-10-27] MEDS ORDERED: GABA300C16 PO (05:27)
[2018-10-27] MEDS ORDERED: DULO60CA59 PO (05:27)
[2018-10-27] MEDS ORDERED: AMLO2.5T78 PO (05:27)
[2018-10-27] MEDS ORDERED: DOXY100T21 PO (05:27)
[2018-10-27] MEDS ORDERED: DOCUSATE (05:27)
[2018-10-27] MEDS ORDERED: CHOL100062 PO (05:27)
[2018-10-27] MEDS ORDERED: morphine 2 MG INJ IV ONE (05:58)
[2018-10-27] MEDS ORDERED: clonAZEPAM 0.5 MG TAB PO PRN (07:30)
[2018-10-27] MEDS ORDERED: GABAPENTIN 300 MG CAP PO SCH (09:00)
[2018-10-27] MEDS ORDERED: NON-FORMULARY/PATIENT OWN MED (Omeprazole* 20 MG) PO SCH (09:00)
[2018-10-27] MEDS: CHOLECALCIFEROL 1,000 UNIT TAB PO SCH (09:52)
[2018-10-27] MEDS: AMLODIPINE 2.5 MG TAB PO SCH (09:53)
[2018-10-27] MEDS: DOXYCYCLINE 100 MG TAB PO SCH ×2 (09:54→20:59)
[2018-10-27] MEDS: DULOXETINE 30 MG CAP DR PO SCH (09:54)
--- NOTE | 2018-10-27 10:22 | PN ---
Date/Time of Note Date/Time of Note DATE: 10/27/18 TIME: 10:17 Assessment/Plan VTE Prophylaxis Risk score (from Ns)>0 risk: 3 SCD applied (from Ns): Yes Pharmacological prophylaxis: heparin Lines/Catheters IV Catheter Type (from Nrs): Saline Lock Assessment/Plan Problems: (1) Bradycardia Status: Resolved Comment: No further episodes of bradycardia dysrhythmia. (2) Pancytopenia Status: Acute Comment: Review of the records going back 10 years indicates that this comes and goes in this gentleman. It is very likely related to his chronic active hepatitis C. (3) Chronic renal insufficiency Status: Acute Comment: Stable over many years Qualifiers: Chronic kidney disease stage: unspecified stage Qualified Codes: N18.9 - Chronic kidney disease, unspecified (4) Headache Status: Acute Comment: He will be receiving an MRI scan to look at this. In the midst additional treatment for sinus issues at this moment. Qualifiers: Headache type: unspecified Headache chronicity pattern: chronic headache Intractability: not intractable Qualified Codes: R51 - Headache (5) Chronic active hepatitis C Status: Chronic Comment: Noted. (6) Walker as ambulation aid Status: Chronic Comment: Continue with physical therapy. Please note regarding the patient's peripheral neuropathy we can go up on the gabapentin a little bit (7) Benign prostatic hyperplasia Status: Chronic Comment: On alpha blockade treatment Qualifiers: Lower urinary tract symptom presence: symptoms present (8) Schizoaffective disorder, bipolar type Status: Chronic Comment: Stable maintain medications (9) Hyperlipidemia Status: Chronic Comment: Continue treatment (10) Essential hypertension Status: Chronic Comment: Adequate control Result Diagram: 10/26/18 2304 10/26/18 2304 Results 24hrs Laboratory Tests Test 10/26/18 23:04 10/27/18 01:07 10/27/18 06:00 White Blood Count 3.8 #L Red Blood Count 3.45 #L Hemoglobin 11.3 #L Hematocrit 33.0 L Mean Corpuscular Volume 95.7 Mean Corpuscular Hemoglobin 32.8 Mean Corpuscular Hemoglobin Concent 34.2 Red Cell Distribution Width 12.8 Platelet Count 61 #L Mean Platelet Volume 9.3 Immature Granulocytes % 0.500 H Neutrophils % 57.3 Segmented Neutrophils % (Manual) 64 Lymphocytes % 29.3 Lymphocytes % (Manual) 25 Monocytes % 9.2 Monocytes % (Manual) 7 Eosinophils % 3.2 Eosinophils % (Manual) 3 Basophils % 0.5 Basophils % (Manual) 1 Nucleated Red Blood Cells % 0.0 Immature Granulocytes # 0.020 Neutrophils # 2.2 Lymphocytes (Manual) 0.9 Lymphocytes # 1.1 Monocytes # 0.4 Monocytes # (Manual) 0.2 L Eosinophils # 0.1 Basophils # 0.0 Basophils # (Manual) 0.0 Nucleated Red Blood Cells # 0.0 Platelet Estimate DECREASED Prothrombin Time 14.0 Prothrombin Time Ratio 1.1 INR International Normalized Ratio 1.07 Activated Partial Thromboplast Time 38.3 H Sodium Level 140 Potassium Level 4.5 Chloride Level 110 Carbon Dioxide Level 24 Anion Gap 6 Blood Urea Nitrogen 30 H Creatinine 2.71 H Est Glomerular Filtrat Rate mL/min 24 L Glucose Level 92 Calcium Level 9.0 Magnesium Level 1.5 L Troponin I < 0.012 < 0.012 Creatine Kinase 203 H Creatine Kinase Index 1.8 Creatinine Kinase MB (Mass) 3.69 H Ethyl Alcohol Level < 10.0 H Urine Color STRAW Urine Clarity CLEAR Urine pH 6.0 Urine Specific [place] 1.006 Urine Ketones NEGATIVE Urine Nitrite NEGATIVE Urine Bilirubin NEGATIVE Urine Urobilinogen NEGATIVE Urine Leukocyte Esterase NEGATIVE Urine Microscopic RBC 1 Urine Microscopic WBC 0 Urine Hemoglobin NEGATIVE Urine Random Sodium 75 Urine Glucose NEGATIVE Urine Total Protein 2+ H Subjective 24 Hr Interval Summary Free Text/Dictation Patient reports difficulties with his peripheral neuropathy which is chronic, his ambulation which is chronic, and his sinuses and deviated septum causing right-sided headaches which is subacute. Constitutional: no complaints Eyes: no complaints ENT: other Respiratory: no complaints Cardiovascular: no complaints Gastrointestinal: no complaints Genitourinary: other (BPH symptoms) Neurologic: no complaints (Peripheral neuropathy symptoms) Exam/Review of Systems Exam Vitals Vital Signs Date Temp Pulse Resp B/P (MAP) Pulse Ox O2 O2 Flow FiO2 Time Delivery Rate 10/27/18 86 08:14 10/27/18 98.0 18 130/70 93 07:00 (90) 10/27/18 Nasal 2.0 02:11 Cannula Constitutional: alert, oriented Eyes: nl conjunctiva, EOMI, nl lids Neck: supple, non-tender Respiratory: clear to auscultation, normal air movement Cardiovascular: regular rate and rhythm, nl pulses Results Results 24hrs Laboratory Tests Test 10/26/18 23:04 10/27/18 01:07 10/27/18 06:00 White Blood Count 3.8 #L Red Blood Count 3.45 #L Hemoglobin 11.3 #L Hematocrit 33.0 L Mean Corpuscular Volume 95.7 Mean Corpuscular Hemoglobin 32.8 Mean Corpuscular Hemoglobin Concent 34.2 Red Cell Distribution Width 12.8 Platelet Count 61 #L Mean Platelet Volume 9.3 Immature Granulocytes % 0.500 H Neutrophils % 57.3 Segmented Neutrophils % (Manual) 64 Lymphocytes % 29.3 Lymphocytes % (Manual) 25 Monocytes % 9.2 Monocytes % (Manual) 7 Eosinophils % 3.2 Eosinophils % (Manual) 3 Basophils % 0.5 Basophils % (Manual) 1 Nucleated Red Blood Cells % 0.0 Immature Granulocytes # 0.020 Neutrophils # 2.2 Lymphocytes (Manual) 0.9 Lymphocytes # 1.1 Monocytes # 0.4 Monocytes # (Manual) 0.2 L Eosinophils # 0.1 Basophils # 0.0 Basophils # (Manual) 0.0 Nucleated Red Blood Cells # 0.0 Platelet Estimate DECREASED Prothrombin Time 14.0 Prothrombin Time Ratio 1.1 INR International Normalized Ratio 1.07 Activated Partial Thromboplast Time 38.3 H Sodium Level 140 Potassium Level 4.5 Chloride Level 110 Carbon Dioxide Level 24 Anion Gap 6 Blood Urea Nitrogen 30 H Creatinine 2.71 H Est Glomerular Filtrat Rate mL/min 24 L Glucose Level 92 Calcium Level 9.0 Magnesium Level 1.5 L Troponin I < 0.012 < 0.012 Creatine Kinase 203 H Creatine Kinase Index 1.8 Creatinine Kinase MB (Mass) 3.69 H Ethyl Alcohol Level < 10.0 H Urine Color STRAW Urine Clarity CLEAR Urine pH 6.0 Urine Specific [place] 1.006 Urine Ketones NEGATIVE Urine Nitrite NEGATIVE Urine Bilirubin NEGATIVE Urine Urobilinogen NEGATIVE Urine Leukocyte Esterase NEGATIVE Urine Microscopic RBC 1 Urine Microscopic WBC 0 Urine Hemoglobin NEGATIVE Urine Random Sodium 75 Urine Glucose NEGATIVE Urine Total Protein 2+ H Medications Medication Current Medications IV Flush (NS 3 ml) 3 ml PER PROTOCOL IV ; Start 10/27/18 at 00:00 Ondansetron HCl (Zofran Tab) 4 mg Q6H PRN PO NAUSEA/VOMITING; Start 10/27/18 at 00:00 Acetaminophen (Tylenol Tab) 650 mg Q6H PRN PO .PAIN 1-3 OR TEMP Last a dministered on 10/27/18 02:53; Admin Dose 650 MG; Start 10/27/18 at 00:00 Docusate Sodium (Colace) 100 mg Q12H PRN PO .CONSTIPATION; Start 10/27/18 at 00:00 Bisacodyl (Dulcolax) 5 mg DAILY PRN PO .CONSTIPATION; Start 10/27/18 at 00:00 Tramadol HCl (Ultram) 50 mg Q6H PRN PO MODERATE PAIN LEVEL 4-6 Last administered on 10/27/18 04:12; Admin Dose 50 MG; Start 10/27/18 at 03:30 Hydralazine HCl (Apresoline) 10 mg Q4H PRN IV HYPERTENSION Last administered on 10/27/18 05:07; Admin Dose 10 MG; Start 10/27/18 at 05:00 Amlodipine Besylate (Norvasc) 5 mg DAILY PO Last administered on 10/27/18 09 :53; Admin Dose 5 MG; Start 10/27/18 at 09:00 Cholecalciferol (Vitamin D) 1,000 unit DAILY PO Last administered on 10/27/18 09:52; Admin Dose 1,000 UNIT; Start 10/27/18 at 09:00 Duloxetine HCl (Cymbalta) 120 mg DAILY PO Last administered on 10/27/18 09:54; Admin Dose 120 MG; Start 10/27/18 at 09:00 Risperidone (Risperdal) 2 mg BID PO ; Start 10/27/18 at 09:00 Ropinirole HCl (Requip) 0.25 mg TID PO ; Start 10/27/18 at 10:30 Tamsulosin HCl (Flomax) 0.8 mg HS PO ; Start 10/27/18 at 21:00 Miscellaneous Information 20 mg QHS PO ; Start 10/27/18 at 21:00; Status UNV Miscellaneous Information 8.6 tab BID .ROUTE ; Start 10/27/18 at 09:00; Status UNV Doxycycline Hyclate (Vibramycin) 100 mg BID PO Last administered on 10/27/18 09:54; Admin Dose 100 MG; Start 10/27/18 at 09:00 Pantoprazole (Protonix Tab) 40 mg DAILY@06 PO ; Start 10/27/18 at 10:00 Clonazepam (Klonopin) 1 mg QID PO ; Start 10/27/18 at 13:00; Status UNV Gabapentin (Neurontin) 400 mg TID PO ; Start 10/27/18 at 13:00; Status UNV Ipratropium [place] (Atrovent Nasal) 2 spray BID NASAL ; Start 10/27/18 at 10:30; Status UNV YARI GUTIERREZ MD Oct 27, 2018 10:22
[2018-10-27] MEDS: IPRATROPIUM 0.03% 30 ML NASAL SPRAY NASAL SCH ×2 (10:30→21:00)
[2018-10-27] MEDS: morphine (ER) 30 MG TAB PO SCH ×2 (11:06→20:58)
[2018-10-27] MEDS: ROPINIROLE 0.25 MG TAB PO SCH ×3 (11:13→20:59)
[2018-10-27] MEDS: PANTOPRAZOLE (EC) 40 MG TAB PO SCH (11:13)
[2018-10-27] MEDS: RISPERIDONE 2 MG TAB PO SCH ×2 (11:13→20:58)
--- NOTE | 2018-10-27 12:12 | CONS ---
Assessment/Plan Assessment/Plan Assessment/Plan (Daily) 1. 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 will check spot protein/cr and urine lytes - obtain NIMA - renally dose all meds 2. bradycardia: - spontaneously resolved - monitor for arrhythmia 3. HTN: - cont current meds and titrate as needed 4. leukopenia/thrombocytopenia: - due to liver disease? hx of hepatitis c - monitor 5. headache: - head ct reviewed - mri pending 6. BPH: - cont tamsulosin 7. anxiety/schizophrenia/depression: - cont pysch meds Consultation Date/Type/Reason Admit Date/Time Type of Consult nephrology Reason for Consultation ilya on ckd Date/Time of Note DATE: 10/27/18 TIME: 12:05 Hx of Present Illness Pt is a 68yo M with hx of CVA, HTN, schizophrenia, depression and anxiety who presents with anxiety and found to have severe bradycardia to 30's. He complains of headache that has been present for weeks. His HR spontaneously improved to NSR. He denies n/v, chest pain, dizziness, shortness of breath or urinary issues. He has known CKD with labs in 2018 showing cr of 2.4-2.5. Allergies: NKDA Medications: See MAR ROS a full 10pt ros was negative other than what is stated in the hpi PMH/Family/Social PMH/Family/Social Past Medical History anxiety, history of CVA, hypertension, hyperlipidemia, chronic kidney disease, depression, PTSD, neuropathy, schizophrenia Past Surgical History Past Surgical Hx: cholecystectomy Family History Significant Family History: no pertinent family hx Social History Alcohol Use: none Smoking Status: Current every day smoker Drug Use: none Past Medical History Home Meds Active Scripts Metronidazole (Flagyl) 500 Mg Tab, 500 MG PO Q8 for 7 Days, TAB Prov:TESS HALL MD 06/02/18 Levofloxacin* (Levaquin*) 750 Mg Tablet, 750 MG PO DAILY for 7 Days, TAB Prov:TESS HALL MD 06/02/18 Reported Medications [Docusate 8.6 Mg] No Conflict Check, 8.6 TAB BID 10/27/18 Cholecalciferol* (Vitamin D3*) 1,000 Unit Tablet, 1000 UNIT PO DAILY, TAB 10/27/18 Amlodipine Besylate* (Amlodipine Besylate*) 2.5 Mg Tablet, 5 MG PO DAILY, #30 TAB 10/27/18 Doxycycline Monohydrate* (Doxycycline Monohydrate*) 100 Mg Tablet, 100 MG PO BID, TAB 10/27/18 Tamsulosin Hcl* (Flomax*) 0.4 Mg Cap.er.24h, 0.8 MG PO DAILY, CAP 10/27/18 Ropinirole Hcl* (Ropinirole Hcl*) 0.25 Mg Tablet, 0.25 MG PO TID, TAB 10/27/18 Gabapentin* (Gabapentin*) 300 Mg Capsule, 300 MG PO TID, #90 CAP 10/27/18 Duloxetine Hcl* (Duloxetine Hcl*) 60 Mg Capsule.dr, 120 MG PO DAILY, #30 CAP 10/27/18 Simvastatin* (Zocor*) 20 Mg Tablet, 20 MG PO QHS, #30 TAB 06/02/18 Risperidone* (Risperidone*) 2 Mg Tablet, 2 MG PO BID, TAB 06/02/18 Omeprazole* (Omeprazole*) 20 Mg Capsule.dr, 20 MG PO DAILY, #30 CAP 06/02/18 Clonazepam* (Klonopin*) 1 Mg Tablet, 1 MG PO DAILY PRN for ANXIETY, TAB 2 TABS IN THE MORNING 1 TAB ON LUNCH AND EVENING 2 TABS AT BEDTIME 06/02/18 Medications Current Medications IV Flush (NS 3 ml) 3 ml PER PROTOCOL IV ; Start 10/27/18 at 00:00 Ondansetron HCl (Zofran Tab) 4 mg Q6H PRN PO NAUSEA/VOMITING; Start 10/27/18 at 00:00 Acetaminophen (Tylenol Tab) 650 mg Q6H PRN PO .PAIN 1-3 OR TEMP Last administered on 10/27/18at 02:53; Admin Dose 650 MG; Start 10/27/18 at 00:00 Docusate Sodium (Colace) 100 mg Q12H PRN PO .CONSTIPATION; Start 10/27/18 at 00:00 Bisacodyl (Dulcolax) 5 mg DAILY PRN PO .CONSTIPATION; Start 10/27/18 at 00:00 Tramadol HCl (Ultram) 50 mg Q6H PRN PO MODERATE PAIN LEVEL 4-6 Last administered on 10/27/18at 04:12; Admin Dose 50 MG; Start 10/27/18 at 03:30 Hydralazine HCl (Apresoline) 10 mg Q4H PRN IV HYPERTENSION Last administered on 10/27/18 05:07; Admin Dose 10 MG; Start 10/27/18 at 05:00 Amlodipine Besylate (Norvasc) 5 mg DAILY PO Last administered on 10/27/18 09:53; Admin Dose 5 MG; Start 10/27/18 at 09:00 Cholecalciferol (Vitamin D) 1,000 unit DAILY PO Last administered on 10/27/18 09:52; Admin Dose 1,000 UNIT; Start 10/27/18 at 09:00 Duloxetine HCl (Cymbalta) 120 mg DAILY PO Last administered on 10/27/18 09:54; Admin Dose 120 MG; Start 10/27/18 at 09:00 Risperidone (Risperdal) 2 mg BID PO Last administered on 10/27/18 11:13; Admin Dose 2 MG; Start 10/27/18 at 09:00 Ropinirole HCl (Requip) 0.25 mg TID PO Last administered on 10/27/18 11:13; Admin Dose 0.25 MG; Start 10/27/18 at 10:30 Tamsulosin HCl (Flomax) 0.8 mg HS PO ; Start 10/27/18 at 21:00 Atorvastatin Calcium (Lipitor) 10 mg DAILY@21 PO ; Start 10/27/18 at 21:00 Miscellaneous Information 8.6 tab BID .ROUTE ; Start 10/27/18 at 09:00; Status UNV Doxycycline Hyclate (Vibramycin) 100 mg BID PO Last administered on 10/27/18 09:54; Admin Dose 100 MG; Start 10/27/18 at 09:00 Pantoprazole (Protonix Tab) 40 mg DAILY@06 PO Last administered on 10/27/18 11:13; Admin Dose 40 MG; Start 10/27/18 at 10:00 Gabapentin (Neurontin) 400 mg TID PO ; Start 10/27/18 at 13:00 Ipratropium [place] (Atrovent Nasal) 2 spray BID NASAL ; Start 10/27/18 at 10:30 Morphine Sulfate (Ms Contin (Er)) 30 mg BID PO Last administered on 10/27/18 11:06; Admin Dose 30 MG; Start 10/27/18 at 11:00 Clonazepam (Klonopin) 1 mg TID PO ; Start 10/27/18 at 13:00 Allergies: Coded Allergies: No Known Allergies (Verified Allergy, Unknown, 06/02/18) Past Surgical History Past Surgical Hx: cholecystectomy Social History Alcohol Use: none Smoking Status: Current every day smoker Drug Use: none Exam/Review of Systems Exam Vitals Vital Signs Date Temp Pulse Resp B/P (MAP) Pulse Ox O2 O2 Flow FiO2 Time Delivery Rate 10/27/18 98.3 18 165/79 93 11:23 (107) 10/27/18 86 08:14 10/27/18 Nasal 2.0 02:11 Cannula Exam gen nad cv rrr pulm ctab abd soft, nd, nt +bs ext: no edema Results Result Diagram: 10/26/18 2304 10/26/18 2304 Results 24hrs Laboratory Tests Test 10/26/18 23:04 10/27/18 01:07 10/27/18 06:00 10/27/18 11:38 White Blood Count 3.8 #L Pending Red Blood Count 3.45 #L Pending Hemoglobin 11.3 #L Pending Hematocrit 33.0 L Pending Mean Corpuscular 95.7 Pending Volume Mean Corpuscular 32.8 Pending Hemoglobin Mean Corpuscular 34.2 Pending Hemoglobin Concent Red Cell 12.8 Pending Distribution Width Platelet Count 61 #L Pending Mean Platelet Volume 9.3 Pending Immature 0.500 H Granulocytes % Neutrophils % 57.3 Segmented 64 Neutrophils % (Manual) Lymphocytes % 29.3 Lymphocytes % 25 (Manual) Monocytes % 9.2 Monocytes % (Manual) 7 Eosinophils % 3.2 Eosinophils % 3 (Manual) Basophils % 0.5 Basophils % (Manual) 1 Nucleated Red Blood 0.0 Cells % Immature 0.020 Granulocytes # Neutrophils # 2.2 Lymphocytes (Manual) 0.9 Lymphocytes # 1.1 Monocytes # 0.4 Monocytes # (Manual) 0.2 L Eosinophils # 0.1 Basophils # 0.0 Basophils # (Manual) 0.0 Nucleated Red Blood 0.0 Cells # Platelet Estimate DECREASED Prothrombin Time 14.0 Prothrombin Time 1.1 Ratio INR International 1.07 Normalized Ratio Activated 38.3 H Partial Thromboplast Time Sodium Level 140 Potassium Level 4.5 Chloride Level 110 Carbon Dioxide Level 24 Anion Gap 6 Blood Urea Nitrogen 30 H Creatinine 2.71 H Est Glomerular 24 L Filtrat Rate mL/min Glucose Level 92 Calcium Level 9.0 Magnesium Level 1.5 L Troponin I < 0.012 < 0.012 Creatine Kinase 203 H Creatine Kinase 1.8 Index Creatinine Kinase MB 3.69 H (Mass) Ethyl Alcohol Level < 10.0 H Urine Color STRAW Urine Clarity CLEAR Urine pH 6.0 Urine Specific 1.006 [place] Urine Ketones NEGATIVE Urine Nitrite NEGATIVE Urine Bilirubin NEGATIVE Urine Urobilinogen NEGATIVE Urine Leukocyte NEGATIVE Esterase Urine Microscopic 1 RBC Urine Microscopic 0 WBC Urine Hemoglobin NEGATIVE Urine Random Sodium 75 Urine Glucose NEGATIVE Urine Total Protein 2+ H Urine Opiates Screen Positive Urine Barbiturates Negative Urine Amphetamines Negative Screen Urine Negative Benzodiazepines Screen Urine Cocaine Screen Negative Urine Cannabinoids Negative Medications Medication Current Medications IV Flush (NS 3 ml) 3 ml PER PROTOCOL IV ; Start 10/27/18 at 00:00 Ondansetron HCl (Zofran Tab) 4 mg Q6H PRN PO NAUSEA/VOMITING; Start 10/27/18 at 00:00 Acetaminophen (Tylenol Tab) 650 mg Q6H PRN PO .PAIN 1-3 OR TEMP Last administered on 10/27/18at 02:53; Admin Dose 650 MG; Start 10/27/18 at 00:00 Docusate Sodium (Colace) 100 mg Q12H PRN PO .CONSTIPATION; Start 10/27/18 at 00:00 Bisacodyl (Dulcolax) 5 mg DAILY PRN PO .CONSTIPATION; Start 10/27/18 at 00:00 Tramadol HCl (Ultram) 50 mg Q6H PRN PO MODERATE PAIN LEVEL 4-6 Last administered on 10/27/18at 04:12; Admin Dose 50 MG; Start 10/27/18 at 03:30 Hydralazine HCl (Apresoline) 10 mg Q4H PRN IV HYPERTENSION Last administered on 10/27/18at 05:07; Admin Dose 10 MG; Start 10/27/18 at 05:00 Amlodipine Besylate (Norvasc) 5 mg DAILY PO Last administered on 10/27/18at 09:53; Admin Dose 5 MG; Start 10/27/18 at 09:00 Cholecalciferol (Vitamin D) 1,000 unit DAILY PO Last administered on 10/27/18at 09:52; Admin Dose 1,000 UNIT; Start 10/27/18 at 09:00 Duloxetine HCl (Cymbalta) 120 mg DAILY PO Last administered on 10/27/18 09:54; Admin Dose 120 MG; Start 10/27/18 at 09:00 Risperidone (Risperdal) 2 mg BID PO Last administered on 10/27/18 11:13; Admin Dose 2 MG; Start 10/27/18 at 09:00 Ropinirole HCl (Requip) 0.25 mg TID PO Last administered on 10/27/18 11:13; Admin Dose 0.25 MG; Start 10/27/18 at 10:30 Tamsulosin HCl (Flomax) 0.8 mg HS PO ; Start 10/27/18 at 21:00 Atorvastatin Calcium (Lipitor) 10 mg DAILY@21 PO ; Start 10/27/18 at 21:00 Miscellaneous Information 8.6 tab BID .ROUTE ; Start 10/27/18 at 09:00; Status UNV Doxycycline Hyclate (Vibramycin) 100 mg BID PO Last administered on 10/27/18 09:54; Admin Dose 100 MG; Start 10/27/18 at 09:00 Pantoprazole (Protonix Tab) 40 mg DAILY@06 PO Last administered on 10/27/18 11:13; Admin Dose 40 MG; Start 10/27/18 at 10:00 Gabapentin (Neurontin) 400 mg TID PO ; Start 10/27/18 at 13:00 Ipratropium [place] (Atrovent Nasal) 2 spray BID NASAL ; Start 10/27/18 at 10:30 Morphine Sulfate (Ms Contin (Er)) 30 mg BID PO Last administered on 10/27/18at 11:06; Admin Dose 30 MG; Start 10/27/18 at 11:00 Clonazepam (Klonopin) 1 mg TID PO ; Start 10/27/18 at 13:00 NORBERT DAVIS MD Oct 27, 2018 12:12
[2018-10-27] MEDS ORDERED: clonAZEPAM 0.5 MG TAB PO SCH (13:00)
[2018-10-27] MEDS: clonAZEPAM 0.5 MG TAB PO SCH ×2 (13:02→20:59)
[2018-10-27] MEDS: GABAPENTIN 400 MG CAP PO SCH ×2 (13:03→20:58)
[2018-10-27] MEDS ORDERED: clonAZEPAM 0.5 MG TAB PO ONE (17:00)
--- NOTE | 2018-10-27 18:18 | CONS ---
Assessment/Plan Assessment/Plan Hospital Course (Demo Recall) 68 yo with bradycardia on presentation, likely secondary to hypomagnesemia, now resolved with repletion Imp: Sinus bradycardia due to hypomagnesemia Sinus pain, being worked up CKD stage 4 Psychiatric issues Recommendations: Would continue repletion with po magnesium As the tele box is contributing to his anxiety, reasonable to dc telemetry as he's no longer bradycardic Work up of sinuses with imaging as per hospitalist team Consultation Date/Type/Reason Admit Date/Time Date of Consultation: Oct 27, 2018 Type of Consult Cardiology Reason for Consultation bradycardia Requesting Provider: ANIYAH KING Date/Time of Note DATE: 10/27/18 TIME: 18:12 Hx of Present Illness 68 yo was being taken to the ED due to per notes anxiety, but was rerouted to [facility] due to sinus bradycardia in the 30's. Patient says he was seeking care for sinus pain, which has persisted, and is currently being worked up. He is very bothered by the telemetry box and is anxious that he has not received his risperidone which I have confirmed his RN that he has received it. He has no prior cardiac issues. Mg on presentation was 1.5 and has been repleted. Subsequently his heart rate has normalized, has nsr and nsr with occasional pvc's and sinus arrhythmia but no further bradycardia. Subjective hx not possible: other (extremely anxious) Respiratory: shortness of breath Past Medical History Medical History: renal disease Home Meds Active Scripts Metronidazole (Flagyl) 500 Mg Tab, 500 MG PO Q8 for 7 Days, TAB Prov:TESS HALL MD 06/02/18 Levofloxacin* (Levaquin*) 750 Mg Tablet, 750 MG PO DAILY for 7 Days, TAB Prov:TESS HALL MD 06/02/18 Reported Medications [Docusate 8.6 Mg] No Conflict Check, 8.6 TAB BID 10/27/18 Cholecalciferol* (Vitamin D3*) 1,000 Unit Tablet, 1000 UNIT PO DAILY, TAB 10/27/18 Amlodipine Besylate* (Amlodipine Besylate*) 2.5 Mg Tablet, 5 MG PO DAILY, #30 TAB 10/27/18 Doxycycline Monohydrate* (Doxycycline Monohydrate*) 100 Mg Tablet, 100 MG PO BID, TAB 10/27/18 Tamsulosin Hcl* (Flomax*) 0.4 Mg Cap.er.24h, 0.8 MG PO DAILY, CAP 10/27/18 Ropinirole Hcl* (Ropinirole Hcl*) 0.25 Mg Tablet, 0.25 MG PO TID, TAB 10/27/18 Gabapentin* (Gabapentin*) 300 Mg Capsule, 300 MG PO TID, #90 CAP 10/27/18 Duloxetine Hcl* (Duloxetine Hcl*) 60 Mg Capsule.dr, 120 MG PO DAILY, #30 CAP 10/27/18 Simvastatin* (Zocor*) 20 Mg Tablet, 20 MG PO QHS, #30 TAB 06/02/18 Risperidone* (Risperidone*) 2 Mg Tablet, 2 MG PO BID, TAB 06/02/18 Omeprazole* (Omeprazole*) 20 Mg Capsule.dr, 20 MG PO DAILY, #30 CAP 06/02/18 Clonazepam* (Klonopin*) 1 Mg Tablet, 1 MG PO DAILY PRN for ANXIETY, TAB 2 TABS IN THE MORNING 1 TAB ON LUNCH AND EVENING 2 TABS AT BEDTIME 06/02/18 Medications Current Medications IV Flush (NS 3 ml) 3 ml PER PROTOCOL IV ; Start 10/27/18 at 00:00 Ondansetron HCl (Zofran Tab) 4 mg Q6H PRN PO NAUSEA/VOMITING; Start 10/27/18 at 00:00 Acetaminophen (Tylenol Tab) 650 mg Q6H PRN PO .PAIN 1-3 OR TEMP Last administered on 10/27/18at 17:28; Admin Dose 650 MG; Start 10/27/18 at 00:00 Docusate Sodium (Colace) 100 mg Q12H PRN PO .CONSTIPATION; Start 10/27/18 at 00:00 Bisacodyl (Dulcolax) 5 mg DAILY PRN PO .CONSTIPATION; Start 10/27/18 at 00:00 Tramadol HCl (Ultram) 50 mg Q6H PRN PO MODERATE PAIN LEVEL 4-6 Last administered on 10/27/18at 13:03; Admin Dose 50 MG; Start 10/27/18 at 03:30 Hydralazine HCl (Apresoline) 10 mg Q4H PRN IV HYPERTENSION Last administered on 10/27/18at 05:07; Admin Dose 10 MG; Start 10/27/18 at 05:00 Amlodipine Besylate (Norvasc) 5 mg DAILY PO Last administered on 10/27/18 09:53; Admin Dose 5 MG; Start 10/27/18 at 09:00 Cholecalciferol (Vitamin D) 1,000 unit DAILY PO Last administered on 10/27/18 09:52; Admin Dose 1,000 UNIT; Start 10/27/18 at 09:00 Duloxetine HCl (Cymbalta) 120 mg DAILY PO Last administered on 10/27/18 09:54; Admin Dose 120 MG; Start 10/27/18 at 09:00 Risperidone (Risperdal) 2 mg BID PO Last administered on 10/27/18 11:13; Admin Dose 2 MG; Start 10/27/18 at 09:00 Ropinirole HCl (Requip) 0.25 mg TID PO Last administered on 10/27/18 13:03; Admin Dose 0.25 MG; Start 10/27/18 at 10:30 Tamsulosin HCl (Flomax) 0.8 mg HS PO ; Start 10/27/18 at 21:00 Atorvastatin Calcium (Lipitor) 10 mg DAILY@21 PO ; Start 10/27/18 at 21:00 Senna/Docusate Sodium (Senokot-S) 1 tab BID PO ; Start 10/27/18 at 21:00 Doxycycline Hyclate (Vibramycin) 100 mg BID PO Last administered on 10/27/18 09:54; Admin Dose 100 MG; Start 10/27/18 at 09:00 Pantoprazole (Protonix Tab) 40 mg DAILY@06 PO Last administered on 10/27/18 11:13; Admin Dose 40 MG; Start 10/27/18 at 10:00 Gabapentin (Neurontin) 400 mg TID PO Last administered on 10/27/18 13:03; Admin Dose 400 MG; Start 10/27/18 at 13:00 Ipratropium [place] (Atrovent Nasal) 2 spray BID NASAL ; Start 10/27/18 at 10:30 Morphine Sulfate (Ms Contin (Er)) 30 mg BID PO Last administered on 10/27/18 11:06; Admin Dose 30 MG; Start 10/27/18 at 11:00 Clonazepam (Klonopin) 1 mg TID PO Last administered on 10/27/18 13:02; Admin Dose 1 MG; Start 10/27/18 at 13:00 Allergies: Coded Allergies: No Known Allergies (Verified Allergy, Unknown, 06/02/18) Past Surgical History Past Surgical Hx: cholecystectomy Social History Alcohol Use: none Smoking Status: Current every day smoker Drug Use: none Exam/Review of Systems Vital Signs Vitals Vital Signs Date Temp Pulse Resp B/P (MAP) Pulse Ox O2 O2 Flow FiO2 Time Delivery Rate 10/27/18 66 16:10 10/27/18 98.3 18 145/70 95 16:00 (95) 10/27/18 Nasal 2.0 02:11 Cannula Exam Constitutional: alert, other (very anxious) Psych: anxiety Head: normocephalic, atraumatic Eyes: nl lids, nl sclera ENMT: nl external ears & nose Neck: No jvd, No bruits Respiratory: clear to auscultation, normal air movement Cardiovascular: regular rate and rhythm, nl pulses; No murmurs/extra sounds Gastrointestinal: soft, nl liver, spleen, non-tender Musculoskeletal: nl extremities to inspection Extremities: normal pulses; No edema Neurological: nl speech Skin: nl turgor Labs Result Diagram: 10/27/18 1138 10/27/18 1138 Results 24hrs Laboratory Tests Test 10/26/18 23:04 10/27/18 01:07 10/27/18 06:00 10/27/18 11:38 White Blood Count 3.8 #L 4.0 L Red Blood Count 3.45 #L 4.25 #L Hemoglobin 11.3 #L 13.7 #L Hematocrit 33.0 L 40.7 #L Mean Corpuscular 95.7 95.8 Volume Mean Corpuscular 32.8 32.2 Hemoglobin Mean Corpuscular 34.2 33.7 Hemoglobin Concent Red Cell 12.8 12.8 Distribution Width Platelet Count 61 #L 72 L Mean Platelet Volume 9.3 9.9 Immature 0.500 H 0.300 Granulocytes % Neutrophils % 57.3 70.0 Segmented 64 Neutrophils % (Manual) Lymphocytes % 29.3 18.6 Lymphocytes % 25 (Manual) Monocytes % 9.2 7.3 Monocytes % (Manual) 7 Eosinophils % 3.2 3.0 Eosinophils % 3 (Manual) Basophils % 0.5 0.8 Basophils % (Manual) 1 Nucleated Red Blood 0.0 0.0 Cells % Immature 0.020 0.010 Granulocytes # Neutrophils # 2.2 2.8 Lymphocytes (Manual) 0.9 Lymphocytes # 1.1 0.7 L Monocytes # 0.4 0.3 Monocytes # (Manual) 0.2 L Eosinophils # 0.1 0.1 Basophils # 0.0 0.0 Basophils # (Manual) 0.0 Nucleated Red Blood 0.0 0.0 Cells # Platelet Estimate DECREASED Prothrombin Time 14.0 Prothrombin Time 1.1 Ratio INR International 1.07 Normalized Ratio Activated 38.3 H Partial Thromboplast Time Sodium Level 140 144 Potassium Level 4.5 5.0 Chloride Level 110 110 Carbon Dioxide Level 24 24 Anion Gap 6 10 Blood Urea Nitrogen 30 H 28 H Creatinine 2.71 H 2.57 H Est Glomerular 24 L 25 L Filtrat Rate mL/min Glucose Level 92 107 Calcium Level 9.0 9.5 Magnesium Level 1.5 L 2.3 Troponin I < 0.012 < 0.012 < 0.012 Creatine Kinase 203 H 150 Creatine Kinase 1.8 2.1 Index Creatinine Kinase MB 3.69 H 3.19 H (Mass) Ethyl Alcohol Level < 10.0 H Urine Color STRAW Urine Clarity CLEAR Urine pH 6.0 Urine Specific 1.006 [place] Urine Ketones NEGATIVE Urine Nitrite NEGATIVE Urine Bilirubin NEGATIVE Urine Urobilinogen NEGATIVE Urine Leukocyte NEGATIVE Esterase Urine Microscopic 1 RBC Urine Microscopic 0 WBC Urine Hemoglobin NEGATIVE Urine Random 26.95 Creatinine Urine Random Sodium 75 Urine Glucose NEGATIVE Urine Total Protein 2+ H Urine Opiates Screen Positive Urine Barbiturates Negative Urine Amphetamines Negative Screen Urine Negative Benzodiazepines Screen Urine Cocaine Screen Negative Urine Cannabinoids Negative Hemoglobin A1c 4.9 Total Bilirubin 0.5 Direct Bilirubin 0.00 Indirect Bilirubin 0.5 Aspartate Amino 36 Transf (AST/SGOT) Alanine 21 Aminotransferase (AL T/SGPT) Alkaline Phosphatase 88 Total Protein 7.7 Albumin 4.0 Globulin 3.70 H Albumin/Globulin 1.08 Ratio Triglycerides Level 112 Cholesterol Level 143 LDL Cholesterol, 72 Calculated HDL Cholesterol 49 Cholesterol/HDL 2.9 Ratio Thyroid Stimulating 1.600 Hormone (TSH) Imaging Imaging EKG in ED shows sinus bradycardia at 51 bpm, occasional pac's, septal infarct Medications Medications Current Medications IV Flush (NS 3 ml) 3 ml PER PROTOCOL IV ; Start 10/27/18 at 00:00 Ondansetron HCl (Zofran Tab) 4 mg Q6H PRN PO NAUSEA/VOMITING; Start 10/27/18 at 00:00 Acetaminophen (Tylenol Tab) 650 mg Q6H PRN PO .PAIN 1-3 OR TEMP Last administered on 10/27/18 17:28; Admin Dose 650 MG; Start 10/27/18 at 00:00 Docusate Sodium (Colace) 100 mg Q12H PRN PO .CONSTIPATION; Start 10/27/18 at 00:00 Bisacodyl (Dulcolax) 5 mg DAILY PRN PO .CONSTIPATION; Start 10/27/18 at 00:00 Tramadol HCl (Ultram) 50 mg Q6H PRN PO MODERATE PAIN LEVEL 4-6 Last administered on 10/27/18 13:03; Admin Dose 50 MG; Start 10/27/18 at 03:30 Hydralazine HCl (Apresoline) 10 mg Q4H PRN IV HYPERTENSION Last administered on 10/27/18 05:07; Admin Dose 10 MG; Start 10/27/18 at 05:00 Amlodipine Besylate (Norvasc) 5 mg DAILY PO Last administered on 10/27/18 09:53; Admin Dose 5 MG; Start 10/27/18 at 09:00 Cholecalciferol (Vitamin D) 1,000 unit DAILY PO Last administered on 10/27/18 09:52; Admin Dose 1,000 UNIT; Start 10/27/18 at 09:00 Duloxetine HCl (Cymbalta) 120 mg DAILY PO Last administered on 10/27/18 09:54; Admin Dose 120 MG; Start 10/27/18 at 09:00 Risperidone (Risperdal) 2 mg BID PO Last administered on 10/27/18 11:13; Admin Dose 2 MG; Start 10/27/18 at 09:00 Ropinirole HCl (Requip) 0.25 mg TID PO Last administered on 10/27/18 13:03; Admin Dose 0.25 MG; Start 10/27/18 at 10:30 Tamsulosin HCl (Flomax) 0.8 mg HS PO ; Start 10/27/18 at 21:00 Atorvastatin Calcium (Lipitor) 10 mg DAILY@21 PO ; Start 10/27/18 at 21:00 Senna/Docusate Sodium (Senokot-S) 1 tab BID PO ; Start 10/27/18 at 21:00 Doxycycline Hyclate (Vibramycin) 100 mg BID PO Last administered on 10/27/18 09:54; Admin Dose 100 MG; Start 10/27/18 at 09:00 Pantoprazole (Protonix Tab) 40 mg DAILY@06 PO Last administered on 10/27/18 11:13; Admin Dose 40 MG; Start 10/27/18 at 10:00 Gabapentin (Neurontin) 400 mg TID PO Last administered on 10/27/18at 13:03; Admin Dose 400 MG; Start 10/27/18 at 13:00 Ipratropium [place] (Atrovent Nasal) 2 spray BID NASAL ; Start 10/27/18 at 10:30 Morphine Sulfate (Ms Contin (Er)) 30 mg BID PO Last administered on 10/27/18 11:06; Admin Dose 30 MG; Start 10/27/18 at 11:00 Clonazepam (Klonopin) 1 mg TID PO Last administered on 10/27/18 13:02; Admin Dose 1 MG; Start 10/27/18 at 13:00 BALTAZAR BAKER Oct 27, 2018 18:18
[2018-10-27] MEDS: SENNA/DOCUSATE NA (8.6MG/50MG) TAB PO SCH (20:58)
[2018-10-27] MEDS: TAMSULOSIN (SR) 0.4 MG CAP PO SCH (20:59)
[2018-10-27] MEDS: ATORVASTATIN 10 MG TAB PO SCH (20:59)
[2018-10-28 01:36] VITALS: BP 109/58; PULSE 54; RESP 20
[2018-10-28] MEDS: PANTOPRAZOLE (EC) 40 MG TAB PO SCH (06:21)
[2018-10-28] MEDS: RISPERIDONE 2 MG TAB PO SCH ×3 (09:00→20:14)
[2018-10-28] MEDS: IPRATROPIUM 0.03% 30 ML NASAL SPRAY NASAL SCH (09:00)
[2018-10-28] MEDS: ROPINIROLE 0.25 MG TAB PO SCH ×4 (09:00→20:14)
[2018-10-28] MEDS: MAGNESIUM OXIDE 400 MG TAB PO SCH (09:04)
[2018-10-28] MEDS: CHOLECALCIFEROL 1,000 UNIT TAB PO SCH (09:04)
[2018-10-28] MEDS: DOXYCYCLINE 100 MG TAB PO SCH ×2 (09:04→20:13)
[2018-10-28] MEDS: SENNA/DOCUSATE NA (8.6MG/50MG) TAB PO SCH ×2 (09:04→20:13)
[2018-10-28] MEDS: GABAPENTIN 400 MG CAP PO SCH ×3 (09:04→20:13)
[2018-10-28] MEDS: clonAZEPAM 0.5 MG TAB PO SCH ×3 (09:05→20:16)
[2018-10-28] MEDS: AMLODIPINE 2.5 MG TAB PO SCH (09:05)
[2018-10-28] MEDS: DULOXETINE 30 MG CAP DR PO SCH (09:05)
[2018-10-28] MEDS: morphine (ER) 30 MG TAB PO SCH ×2 (09:05→20:13)
[2018-10-28 09:10] VITALS: BP 145/70; PULSE 48; RESP 18
[2018-10-28] MEDS: traMADol 50 MG TAB PO PRN (09:14)
--- NOTE | 2018-10-28 10:35 | PN ---
Date/Time of Note Date/Time of Note DATE: 10/28/18 TIME: 10:32 Assessment/Plan VTE Prophylaxis Risk score (from Ns)>0 risk: 3 SCD applied (from Ns): Yes Pharmacological prophylaxis: heparin Lines/Catheters IV Catheter Type [facility]from [facility] Saline Lock Assessment/Plan Problems: (1) Schizoaffective disorder, bipolar type Status: Chronic Comment: This remains an active issue also with anxiety. We will try and get psychiatry involved with his care. Please note he is fixated on his headaches. Topiramate is an active consideration for headache prophylaxis and is indicated for migraine prophylaxis. (2) Anxiety Status: Acute Comment: As above. He continues on his clonazepam at the original outpatient rather high dose (3) Bradycardia Status: Resolved Comment: Fully resolved and cleared by cardiology. Discharge planning is going to be a little bit of an issue (4) Kidney disease, chronic, stage IV (GFR 15-29 ml/min) Status: Chronic Comment: Noted and stable. (5) Essential hypertension Status: Chronic Comment: Adequate control at this time (6) Hyperlipidemia Status: Chronic Comment: Stable on statin therapy Qualifiers: Hyperlipidemia type: pure hypercholesterolemia Qualified Codes: E78.00 - Pure hypercholesterolemia, unspecified (7) Chronic active hepatitis C Status: Chronic Comment: Hepatitis precautions. Please note he has sequelae that suggest some degree of cirrhosis (8) Pancytopenia Status: Acute Comment: As above due to liver disease (9) Benign prostatic hyperplasia Status: Chronic Comment: On treatment Qualifiers: Lower urinary tract symptom presence: symptoms present (10) Walker as ambulation aid Status: Chronic Comment: Noted. Result Diagram: 10/28/18 0501 10/28/18 0501 Results 24hrs Laboratory Tests Test 10/27/18 11:38 10/28/18 05:01 White Blood Count 4.0 L 4.9 # Red Blood Count 4.25 #L 3.73 L Hemoglobin 13.7 #L 12.0 L Hematocrit 40.7 #L 36.1 L Mean Corpuscular Volume 95.8 96.8 Mean Corpuscular Hemoglobin 32.2 32.2 Mean Corpuscular Hemoglobin Concent 33.7 33.2 Red Cell Distribution Width 12.8 12.8 Platelet Count 72 L 71 L Mean Platelet Volume 9.9 10.2 Immature Granulocytes % 0.300 0.200 Neutrophils % 70.0 57.5 Lymphocytes % 18.6 28.9 Monocytes % 7.3 10.3 Eosinophils % 3.0 2.7 Basophils % 0.8 0.4 Nucleated Red Blood Cells % 0.0 0.0 Immature Granulocytes # 0.010 0.010 Neutrophils # 2.8 2.8 Lymphocytes # 0.7 L 1.4 Monocytes # 0.3 0.5 Eosinophils # 0.1 0.1 Basophils # 0.0 0.0 Nucleated Red Blood Cells # 0.0 0.0 Sodium Level 144 139 Potassium Level 5.0 4.8 Chloride Level 110 107 Carbon Dioxide Level 24 25 Anion Gap 10 7 Blood Urea Nitrogen 28 H 29 H Creatinine 2.57 H 2.66 H Est Glomerular Filtrat Rate mL/min 25 L 24 L Glucose Level 107 108 Hemoglobin A1c 4.9 Calcium Level 9.5 8.6 Magnesium Level 2.3 Total Bilirubin 0.5 0.8 Direct Bilirubin 0.00 0.00 Indirect Bilirubin 0.5 0.8 Aspartate Amino Transf (AST/SGOT) 36 25 Alanine Aminotransferase (ALT/SGPT) 21 23 Alkaline Phosphatase 88 65 Creatine Kinase 150 Creatine Kinase Index 2.1 Creatinine Kinase MB (Mass) 3.19 H Troponin I < 0.012 Total Protein 7.7 6.3 # Albumin 4.0 3.1 L Globulin 3.70 H 3.20 Albumin/Globulin Ratio 1.08 0.96 Triglycerides Level 112 Cholesterol Level 143 LDL Cholesterol, Calculated 72 HDL Cholesterol 49 Cholesterol/HDL Ratio 2.9 Thyroid Stimulating Hormone (TSH) 1.600 Subjective 24 Hr Interval Summary Free Text/Dictation Patient reports that his headaches have stopped this morning. Please note he declined to take his inhaled nasal spray for the sinuses. Constitutional: no complaints Respiratory: no complaints Cardiovascular: no complaints (No palpitations) Gastrointestinal: no complaints Genitourinary: no complaints Neurologic: no complaints (No headaches) Psychological: anxiety (Very anxious about the possibility of headaches returning) Exam/Review of Systems Exam Vitals Vital Signs Date Temp Pulse Resp B/P (MAP) Pulse Ox O2 O2 Flow FiO2 Time Delivery Rate 10/28/18 97.8 48 18 145/70 99 Room Air 09:10 (95) 10/27/18 2.0 02:11 Intake and Output 10/27/18 10/27/18 10/28/18 1414:59 22:59 06:59 IntakeIntake Total 600 ml 660 ml OutputOutput Total 1000 ml 400 ml BalanceBalance -400 ml 260 ml Exam Patient was on the phone arguing his which was very stressful for him Eyes: nl conjunctiva, EOMI, nl lids, nl sclera Neck: supple, non-tender Respiratory: clear to auscultation, normal air movement Cardiovascular: regular rate and rhythm, nl pulses Results Results 24hrs Laboratory Tests Test 10/27/18 11:38 10/28/18 05:01 White Blood Count 4.0 L 4.9 # Red Blood Count 4.25 #L 3.73 L Hemoglobin 13.7 #L 12.0 L Hematocrit 40.7 #L 36.1 L Mean Corpuscular Volume 95.8 96.8 Mean Corpuscular Hemoglobin 32.2 32.2 Mean Corpuscular Hemoglobin Concent 33.7 33.2 Red Cell Distribution Width 12.8 12.8 Platelet Count 72 L 71 L Mean Platelet Volume 9.9 10.2 Immature Granulocytes % 0.300 0.200 Neutrophils % 70.0 57.5 Lymphocytes % 18.6 28.9 Monocytes % 7.3 10.3 Eosinophils % 3.0 2.7 Basophils % 0.8 0.4 Nucleated Red Blood Cells % 0.0 0.0 Immature Granulocytes # 0.010 0.010 Neutrophils # 2.8 2.8 Lymphocytes # 0.7 L 1.4 Monocytes # 0.3 0.5 Eosinophils # 0.1 0.1 Basophils # 0.0 0.0 Nucleated Red Blood Cells # 0.0 0.0 Sodium Level 144 139 Potassium Level 5.0 4.8 Chloride Level 110 107 Carbon Dioxide Level 24 25 Anion Gap 10 7 Blood Urea Nitrogen 28 H 29 H Creatinine 2.57 H 2.66 H Est Glomerular Filtrat Rate mL/min 25 L 24 L Glucose Level 107 108 Hemoglobin A1c 4.9 Calcium Level 9.5 8.6 Magnesium Level 2.3 Total Bilirubin 0.5 0.8 Direct Bilirubin 0.00 0.00 Indirect Bilirubin 0.5 0.8 Aspartate Amino Transf (AST/SGOT) 36 25 Alanine Aminotransferase (ALT/SGPT) 21 23 Alkaline Phosphatase 88 65 Creatine Kinase 150 Creatine Kinase Index 2.1 Creatinine Kinase MB (Mass) 3.19 H Troponin I < 0.012 Total Protein 7.7 6.3 # Albumin 4.0 3.1 L Globulin 3.70 H 3.20 Albumin/Globulin Ratio 1.08 0.96 Triglycerides Level 112 Cholesterol Level 143 LDL Cholesterol, Calculated 72 HDL Cholesterol 49 Cholesterol/HDL Ratio 2.9 Thyroid Stimulating Hormone (TSH) 1.600 Medications Medication Current Medications IV Flush (NS 3 ml) 3 ml PER PROTOCOL IV ; Start 10/27/18 at 00:00 Ondansetron HCl (Zofran Tab) 4 mg Q6H PRN PO NAUSEA/VOMITING; Start 10/27/18 at 00:00 Acetaminophen (Tylenol Tab) 650 mg Q6H PRN PO .PAIN 1-3 OR TEMP Last administered on 10/27/18 17:28; Admin Dose 650 MG; Start 10/27/18 at 00:00 Docusate Sodium (Colace) 100 mg Q12H PRN PO .CONSTIPATION; Start 10/27/18 at 00:00 Bisacodyl (Dulcolax) 5 mg DAILY PRN PO .CONSTIPATION; Start 10/27/18 at 00:00 Tramadol HCl (Ultram) 50 mg Q6H PRN PO MODERATE PAIN LEVEL 4-6 Last administered on 10/28/18 09:14; Admin Dose 50 MG; Start 10/27/18 at 03:30 Hydralazine HCl (Apresoline) 10 mg Q4H PRN IV HYPERTENSION Last administered on 10/27/18 05:07; Admin Dose 10 MG; Start 10/27/18 at 05:00 Amlodipine Besylate (Norvasc) 5 mg DAILY PO Last administered on 10/28/18 09:05; Admin Dose 5 MG; Start 10/27/18 at 09:00 Cholecalciferol (Vitamin D) 1,000 unit DAILY PO Last administered on 10/28/18 09:04; Admin Dose 1,000 UNIT; Start 10/27/18 at 09:00 Duloxetine HCl (Cymbalta) 120 mg DAILY PO Last administered on 10/28/18 09:05; Admin Dose 120 MG; Start 10/27/18 at 09:00 Risperidone (Risperdal) 2 mg BID PO Last administered on 10/27/18 20:58; Admin Dose 2 MG; Start 10/27/18 at 09:00 Ropinirole HCl (Requip) 0.25 mg TID PO Last administered on 10/27/18 20:59; Admin Dose 0.25 MG; Start 10/27/18 at 10:30 Tamsulosin HCl (Flomax) 0.8 mg HS PO Last administered on 10/27/18 20:59; Admin Dose 0.8 MG; Start 10/27/18 at 21:00 Atorvastatin Calcium (Lipitor) 10 mg DAILY@21 PO Last administered on 10/27/18 20:59; Admin Dose 10 MG; Start 10/27/18 at 21:00 Senna/Docusate Sodium (Senokot-S) 1 tab BID PO Last administered on 10/28/18 09:04; Admin Dose 1 TAB; Start 10/27/18 at 21:00 Doxycycline Hyclate (Vibramycin) 100 mg BID PO Last administered on 10/28/18 09:04; Admin Dose 100 MG; Start 10/27/18 at 09:00 Pantoprazole (Protonix Tab) 40 mg DAILY@06 PO Last administered on 10/28/18 06:21; Admin Dose 40 MG; Start 10/27/18 at 10:00 Gabapentin (Neurontin) 400 mg TID PO Last administered on 10/28/18 09:04; Admin Dose 400 MG; Start 10/27/18 at 13:00 Ipratropium [place] (Atrovent Nasal) 2 spray BID NASAL ; Start 10/27/18 at 10:30 Morphine Sulfate (Ms Contin (Er)) 30 mg BID PO Last administered on 10/28/18 09:05; Admin Dose 30 MG; Start 10/27/18 at 11:00 Clonazepam (Klonopin) 1 mg TID PO Last administered on 10/28/18 09:05; Admin Dose 1 MG; Start 10/27/18 at 13:00 Morphine Sulfate (morphine) 2 mg Q2H PRN IV SEVERE PAIN LEVEL 7-10; Start 10/27/18 at 18:30 Magnesium Oxide (Mag-Ox 400) 400 mg DAILY PO Last administered on 10/28/18 09:04; Admin Dose 400 MG; Start 10/28/18 at 09:00 YARI GUTIERREZ MD Oct 28, 2018 10:35
--- NOTE | 2018-10-28 12:11 | CONS ---
Assessment/Plan Assessment/Plan Assessment/Plan (Daily) 1. nonoliguric ILYA on CKD vs progression of CKD stage IIIb/IV: - ILYA likely related to hemodynamic changes. - trial of gentle hydration - will check urine protein/cr - renally dose all meds 2. bradycardia: - spontaneously resolved - monitor for arrhythmia 3. HTN: - cont current meds and titrate as needed 4. leukopenia/thrombocytopenia: - due to liver disease? hx of hepatitis c - monitor 5. headache: - head ct and mri reviewed 6. BPH: - cont tamsulosin 7. anxiety/schizophrenia/depression: - cont pysch meds Consultation Date/Type/Reason Admit Date/Time Oct 27, 2018 at 10:52 Initial Consult Date 10/27/18 Type of Consult nephrology Requesting Provider: ANIYAH KING Date/Time of Note DATE: 10/28/18 TIME: 12:08 24 HR Interval Summary Free Text/Dictation denies n/v, shortness of breath or urinary issues d/w rn gen nad cv rrr pulm ctab abd soft, dn, nt +bs ext: no edema Exam/Review of Systems Exam Vitals Vital Signs Date Temp Pulse Resp B/P (MAP) Pulse Ox O2 O2 Flow FiO2 Time Delivery Rate 10/28/18 97.8 48 18 145/70 99 Room Air 09:10 (95) 10/27/18 2.0 02:11 Intake and Output 10/27/18 10/27/18 10/28/18 1515:00 23:00 07:00 IntakeIntake Total 600 ml 660 ml OutputOutput Total 1000 ml 400 ml BalanceBalance -400 ml 260 ml Results Result Diagram: 10/28/18 0501 10/28/18 0501 Results 24hrs Laboratory Tests Test 10/28/18 05:01 White Blood Count 4.9 # Red Blood Count 3.73 L Hemoglobin 12.0 L Hematocrit 36.1 L Mean Corpuscular Volume 96.8 Mean Corpuscular Hemoglobin 32.2 Mean Corpuscular Hemoglobin Concent 33.2 Red Cell Distribution Width 12.8 Platelet Count 71 L Mean Platelet Volume 10.2 Immature Granulocytes % 0.200 Neutrophils % 57.5 Lymphocytes % 28.9 Monocytes % 10.3 Eosinophils % 2.7 Basophils % 0.4 Nucleated Red Blood Cells % 0.0 Immature Granulocytes # 0.010 Neutrophils # 2.8 Lymphocytes # 1.4 Monocytes # 0.5 Eosinophils # 0.1 Basophils # 0.0 Nucleated Red Blood Cells # 0.0 Sodium Level 139 Potassium Level 4.8 Chloride Level 107 Carbon Dioxide Level 25 Anion Gap 7 Blood Urea Nitrogen 29 H Creatinine 2.66 H Est Glomerular Filtrat Rate mL/min 24 L Glucose Level 108 Calcium Level 8.6 Total Bilirubin 0.8 Direct Bilirubin 0.00 Indirect Bilirubin 0.8 Aspartate Amino Transf (AST/SGOT) 25 Alanine Aminotransferase (ALT/SGPT) 23 Alkaline Phosphatase 65 Total Protein 6.3 # Albumin 3.1 L Globulin 3.20 Albumin/Globulin Ratio 0.96 Medications Medication Current Medications IV Flush (NS 3 ml) 3 ml PER PROTOCOL IV ; Start 10/27/18 at 00:00 Ondansetron HCl (Zofran Tab) 4 mg Q6H PRN PO NAUSEA/VOMITING; Start 10/27/18 at 00:00 Acetaminophen (Tylenol Tab) 650 mg Q6H PRN PO .PAIN 1-3 OR TEMP Last administered on 10/27/18at 17:28; Admin Dose 650 MG; Start 10/27/18 at 00:00 Docusate Sodium (Colace) 100 mg Q12H PRN PO .CONSTIPATION; Start 10/27/18 at 00:00 Bisacodyl (Dulcolax) 5 mg DAILY PRN PO .CONSTIPATION; Start 10/27/18 at 00:00 Tramadol HCl (Ultram) 50 mg Q6H PRN PO MODERATE PAIN LEVEL 4-6 Last administered on 10/28/18at 09:14; Admin Dose 50 MG; Start 10/27/18 at 03:30 Hydralazine HCl (Apresoline) 10 mg Q4H PRN IV HYPERTENSION Last administered on 10/27/18 05:07; Admin Dose 10 MG; Start 10/27/18 at 05:00 Amlodipine Besylate (Norvasc) 5 mg DAILY PO Last administered on 10/28/18 09:05; Admin Dose 5 MG; Start 10/27/18 at 09:00 Cholecalciferol (Vitamin D) 1,000 unit DAILY PO Last administered on 10/28/18at 09:04; Admin Dose 1,000 UNIT; Start 10/27/18 at 09:00 Duloxetine HCl (Cymbalta) 120 mg DAILY PO Last administered on 10/28/18 09:05; Admin Dose 120 MG; Start 10/27/18 at 09:00 Risperidone (Risperdal) 2 mg BID PO Last administered on 10/28/18 10:59; Admin Dose 2 MG; Start 10/27/18 at 09:00 Ropinirole HCl (Requip) 0.25 mg TID PO Last administered on 10/28/18 10:59; Admin Dose 0.25 MG; Start 10/27/18 at 10:30 Tamsulosin HCl (Flomax) 0.8 mg HS PO Last administered on 10/27/18 20:59; Adm in Dose 0.8 MG; Start 10/27/18 at 21:00 Atorvastatin Calcium (Lipitor) 10 mg DAILY@21 PO Last administered on 10/27/18 20:59; Admin Dose 10 MG; Start 10/27/18 at 21:00 Senna/Docusate Sodium (Senokot-S) 1 tab BID PO Last administered on 10/28/18 09:04; Admin Dose 1 TAB; Start 10/27/18 at 21:00 Doxycycline Hyclate (Vibramycin) 100 mg BID PO Last administered on 10/28/18 09:04; Admin Dose 100 MG; Start 10/27/18 at 09:00 Pantoprazole (Protonix Tab) 40 mg DAILY@06 PO Last administered on 10/28/18 06:21; Admin Dose 40 MG; Start 10/27/18 at 10:00 Gabapentin (Neurontin) 400 mg TID PO Last administered on 10/28/18 09:04; Admin Dose 400 MG; Start 10/27/18 at 13:00 Morphine Sulfate (Ms Contin (Er)) 30 mg BID PO Last administered on 10/28/18 09:05; Admin Dose 30 MG; Start 10/27/18 at 11:00 Clonazepam (Klonopin) 1 mg TID PO Last administered on 10/28/18 09:05; Admin Dose 1 MG; Start 10/27/18 at 13:00 Morphine Sulfate (morphine) 2 mg Q2H PRN IV SEVERE PAIN LEVEL 7-10; Start 10/27/18 at 18:30 Magnesium Oxide (Mag-Ox 400) 400 mg DAILY PO Last administered on 10/28/18 09:04; Admin Dose 400 MG; Start 10/28/18 at 09:00 Topiramate (Topamax) 25 mg BID PO ; Start 10/28/18 at 11:00 NORBERT DAVIS MD Oct 28, 2018 12:11
[2018-10-28] MEDS: SOD CHLORIDE 0.9% 1,000 ML IV SCH (12:26)
[2018-10-28] MEDS: TOPIRAMATE 25 MG TAB PO SCH ×2 (12:26→20:14)
[2018-10-28] MEDS: morphine 2 MG INJ IV PRN (12:29)
[2018-10-28] MEDS: GUAIFENESIN LA 600 MG TABSR PO SCH ×2 (13:53→20:14)
[2018-10-28 16:25] VITALS: BP 159/68; PULSE 49; RESP 18
[2018-10-28 19:26] VITALS: BP 117/70; PULSE 64; RESP 18
[2018-10-28] MEDS: TAMSULOSIN (SR) 0.4 MG CAP PO SCH (20:13)
[2018-10-28] MEDS: ATORVASTATIN 10 MG TAB PO SCH (20:14)
[2018-10-29] MEDS: SOD CHLORIDE 0.9% 1,000 ML IV SCH ×2 (01:55→21:04)
[2018-10-29] MEDS: PANTOPRAZOLE (EC) 40 MG TAB PO SCH (05:58)
[2018-10-29 06:38] VITALS: BP 110/57; PULSE 91; RESP 18
[2018-10-29 08:23] VITALS: BP 120/65; PULSE 91; RESP 18
[2018-10-29] MEDS: CHOLECALCIFEROL 1,000 UNIT TAB PO SCH (08:41)
[2018-10-29] MEDS: GABAPENTIN 400 MG CAP PO SCH ×3 (08:41→20:18)
[2018-10-29] MEDS: DULOXETINE 30 MG CAP DR PO SCH (08:41)
[2018-10-29] MEDS: ROPINIROLE 0.25 MG TAB PO SCH ×3 (08:41→20:18)
[2018-10-29] MEDS: RISPERIDONE 2 MG TAB PO SCH ×2 (08:41→20:18)
[2018-10-29] MEDS: TOPIRAMATE 25 MG TAB PO SCH ×2 (08:41→20:18)
[2018-10-29] MEDS: MAGNESIUM OXIDE 400 MG TAB PO SCH ×2 (08:41→20:18)
[2018-10-29] MEDS: SENNA/DOCUSATE NA (8.6MG/50MG) TAB PO SCH ×2 (08:41→21:04)
[2018-10-29] MEDS: GUAIFENESIN LA 600 MG TABSR PO SCH ×2 (08:41→20:18)
[2018-10-29] MEDS: clonAZEPAM 0.5 MG TAB PO SCH ×3 (08:42→20:18)
[2018-10-29] MEDS: ACETAMINOPHEN 325 MG TAB PO PRN (08:42)
[2018-10-29] MEDS: DOXYCYCLINE 100 MG TAB PO SCH ×2 (08:42→20:18)
[2018-10-29] MEDS: morphine (ER) 30 MG TAB PO SCH ×3 (08:42→21:00)
[2018-10-29] MEDS: AMLODIPINE 2.5 MG TAB PO SCH (08:42)
--- NOTE | 2018-10-29 08:51 | PN ---
DATE: 10/29/2018 SUBJECTIVE: The patient is stable, no events overnight. No fevers, chills, nausea, or vomiting. OBJECTIVE: VITAL SIGNS: Blood pressure is 110/57, respirations 18, pulse 91, temperature 98.1. HEENT: Head is normocephalic. NECK: Supple. HEART: Regular rate. LUNGS: Show diminished breath sounds at the base. ABDOMEN: Soft, nontender to palpation without rebound or guarding. EXTREMITIES: Negative for clubbing, cyanosis, no edema. DERMATOLOGIC: No rashes. MUSCULOSKELETAL: No joint effusion. NEUROLOGIC: No change in exam. MEDICATIONS: The patient's medications have been reviewed. LABORATORY DATA: Reviewed. ASSESSMENT AND PLAN: 1. Nonoliguric acute kidney injury on top of chronic kidney disease with previous baseline creatinin e around 1.5 mg/dL. Etiology of current acute kidney injury may be multifactorial secondary to hemod ynamics, possible progression of underlying chronic kidney disease. The patient's renal function con tinues to fluctuate despite IV fluids. The patient appears euvolemic on exam. Recommendation would be to continue current treatment plan. We will deescalate IV fluids, continue supportive care, renal ly dose all medications. 2. Anemia. Monitor hemoglobin and hematocrit levels. 3. Mineral bone disorder, monitor calcium and phosphorus levels. 4. Bradycardia, possibly due to hypomagnesemia, improved. 5. Leukopenia/thrombocytopenia, etiology unclear, questionable liver disease. Continue to monitor. 6. Benign prostatic hypertrophy. Continue Flomax. 7. Anxiety disorder, schizophrenia. Continue current medical management. 8. History of headaches. Continue medical management. Dictated By: BELLE GHOSH/DAV Conf#: [id number] DID#: [id number] CC: MARY JO PARRY NP; ANIYAH KING MD;*EndCC*
[2018-10-29 15:02] VITALS: BP 125/65; PULSE 98; RESP 18
--- NOTE | 2018-10-29 16:20 | PN ---
Date/Time of Note Date/Time of Note DATE: 10/29/18 TIME: 16:18 Assessment/Plan VTE Prophylaxis Risk score (from Nsg)>0 risk: 3 SCD applied (from Ns): Yes SCD contraindicated: low risk/ambulating Pharmacological prophylaxis: LMWH Lines/Catheters IV Catheter Type (from Nrsg): Saline Lock Assessment/Plan Hospital Course Assessment plan 1. Sinus bradycardia, stable resolved. Possibly due to low magnesium levels. May benefit from less Flomax 2. Hypomagnesemia, unknown etiology possibly diet associated, stable replace 3. Chronic generalized anxiety disorder/benzodiazepine dependence, challenging to control 4. Chronic schizophrenia, appreciate behavioral health assistance 5. Failure to thrive, stable discharge back to [facility] when renal function improved 6. Chronic sinusitis? ENT available at [facility] 7. Acute renal failure on CKD baseline 1.5, stable hydrate review medicines w atch for obstruction 8. BPH chronic? Decrease Flomax if feasible. 9. Tobacco abuse status post counseling offered patch 10. Chronic hepatitis C viremia 11. History of stroke? 12. Anemia unknown etiology 13. Headaches due to anxiety? Consider Topamax Subjective: Occasional headaches no fever no loss of speech or vision. No syncope fainting Objective: Vital signs stable sinus rhythm sinus bradycardia anywhere in the low 40s to 60s Physical exam No pallor adenopathy droop Regular no m/r/g Clear Benign No edema Result Diagram: 10/29/189 10/29/189 Results 24hrs Laboratory Tests Test 10/29/18 04:49 White Blood Count 5.2 Red Blood Count 3.76 L Hemoglobin 12.3 L Hematocrit 36.1 L Mean Corpuscular Volume 96.0 Mean Corpuscular Hemoglobin 32.7 Mean Corpuscular Hemoglobin Concent 34.1 Red Cell Distribution Width 12.5 Platelet Count 73 L Mean Platelet Volume 9.7 Immature Granulocytes % 0.400 Neutrophils % 58.5 Lymphocytes % 27.5 Monocytes % 10.1 Eosinophils % 2.9 Basophils % 0.6 Nucleated Red Blood Cells % 0.0 Immature Granulocytes # 0.020 Neutrophils # 3.1 Lymphocytes # 1.4 Monocytes # 0.5 Eosinophils # 0.2 Basophils # 0.0 Nucleated Red Blood Cells # 0.0 Sodium Level 138 Potassium Level 4.6 Chloride Level 104 Carbon Dioxide Level 25 Anion Gap 9 Blood Urea Nitrogen 33 H Creatinine 3.02 H Est Glomerular Filtrat Rate mL/min 21 L Glucose Level 116 Calcium Level 8.2 L Total Bilirubin 0.9 Direct Bilirubin 0.00 Indirect Bilirubin 0.9 Aspartate Amino Transf (AST/SGOT) 23 Alanine Aminotransferase (ALT/SGPT) 16 Alkaline Phosphatase 68 Total Protein 6.2 Albumin 3.2 L Globulin 3.00 Albumin/Globulin Ratio 1.06 Exam/Review of Systems Exam Vitals Vital Signs Date Temp Pulse Resp B/P (MAP) Pulse Ox O2 O2 Flow FiO2 Time Delivery Rate 10/29/18 98.4 91 18 120/65 91 08:23 (83) 10/29/18 Nasal 2.0 06:38 Cannula Intake and Output 10/28/18 10/28/18 10/29/18 1515:00 23:00 07:00 IntakeIntake Total 400 ml 1140 ml 1200 ml OutputOutput Total 700 ml 2200 ml 300 ml BalanceBalance -300 ml -1060 ml 900 ml Results Results 24hrs Laboratory Tests Test 10/29/18 04:49 White Blood Count 5.2 Red Blood Count 3.76 L Hemoglobin 12.3 L Hematocrit 36.1 L Mean Corpuscular Volume 96.0 Mean Corpuscular Hemoglobin 32.7 Mean Corpuscular Hemoglobin Concent 34.1 Red Cell Distribution Width 12.5 Platelet Count 73 L Mean Platelet Volume 9.7 Immature Granulocytes % 0.400 Neutrophils % 58.5 Lymphocytes % 27.5 Monocytes % 10.1 Eosinophils % 2.9 Basophils % 0.6 Nucleated Red Blood Cells % 0.0 Immature Granulocytes # 0.020 Neutrophils # 3.1 Lymphocytes # 1.4 Monocytes # 0.5 Eosinophils # 0.2 Basophils # 0.0 Nucleated Red Blood Cells # 0.0 Sodium Level 138 Potassium Level 4.6 Chloride Level 104 Carbon Dioxide Level 25 Anion Gap 9 Blood Urea Nitrogen 33 H Creatinine 3.02 H Est Glomerular Filtrat Rate mL/min 21 L Glucose Level 116 Calcium Level 8.2 L Total Bilirubin 0.9 Direct Bilirubin 0.00 Indirect Bilirubin 0.9 Aspartate Amino Transf (AST/SGOT) 23 Alanine Aminotransferase (ALT/SGPT) 16 Alkaline Phosphatase 68 Total Protein 6.2 Albumin 3.2 L Globulin 3.00 Albumin/Globulin Ratio 1.06 Medications Medication Current Medications IV Flush (NS 3 ml) 3 ml PER PROTOCOL IV ; Start 10/27/18 at 00:00 Ondansetron HCl (Zofran Tab) 4 mg Q6H PRN PO NAUSEA/VOMITING; Start 10/27/18 at 00:00 Acetaminophen (Tylenol Tab) 650 mg Q6H PRN PO .PAIN 1-3 OR TEMP Last administered on 10/29/18 08:42; Admin Dose 650 MG; Start 10/27/18 at 00:00 Docusate Sodium (Colace) 100 mg Q12H PRN PO .CONSTIPATION; Start 10/27/18 at 00:00 Bisacodyl (Dulcolax) 5 mg DAILY PRN PO .CONSTIPATION; Start 10/27/18 at 00:00 Tramadol HCl (Ultram) 50 mg Q6H PRN PO MODERATE PAIN LEVEL 4-6 Last administered on 10/28/18 09:14; Admin Dose 50 MG; Start 10/27/18 at 03:30 Hydralazine HCl (Apresoline) 10 mg Q4H PRN IV HYPERTENSION Last administered on 10/27/18 05:07; Admin Dose 10 MG; Start 10/27/18 at 05:00 Amlodipine Besylate (Norvasc) 5 mg DAILY PO Last administered on 10/29/18 08:42; Admin Dose 5 MG; Start 10/27/18 at 09:00 Cholecalciferol (Vitamin D) 1,000 unit DAILY PO Last administered on 10/29/18 08:41; Admin Dose 1,000 UNIT; Start 10/27/18 at 09:00 Duloxetine HCl (Cymbalta) 120 mg DAILY PO Last administered on 10/29/18 08:41; Admin Dose 120 MG; Start 10/27/18 at 09:00 Risperidone (Risperdal) 2 mg BID PO Last administered on 10/29/18 08:41; Admin Dose 2 MG; Start 10/27/18 at 09:00 Ropinirole HCl (Requip) 0.25 mg TID PO Last administered on 10/29/18 13:52; Admin Dose 0.25 MG; Start 10/27/18 at 10:30 Tamsulosin HCl (Flomax) 0.8 mg HS PO Last administered on 10/28/18 20:13; Admin Dose 0.8 MG; Start 10/27/18 at 21:00 Atorvastatin Calcium (Lipitor) 10 mg DAILY@ PO Last administered on 10/28/18 20:14; Admin Dose 10 MG; Start 10/27/18 at 21:00 Senna/Docusate Sodium (Senokot-S) 1 tab BID PO Last administered on 10/29/18 08:41; Admin Dose 1 TAB; Start 10/27/18 at 21:00 Doxycycline Hyclate (Vibramycin) 100 mg BID PO Last administered on 10/29/18 08:42; Admin Dose 100 MG; Start 10/27/18 at 09:00 Pantoprazole (Protonix Tab) 40 mg DAILY@06 PO Last administered on 10/29/18 05:58; Admin Dose 40 MG; Start 10/27/18 at 10:00 Gabapentin (Neurontin) 400 mg TID PO Last administered on 10/29/18 13:52; Admin Dose 400 MG; Start 10/27/18 at 13:00 Morphine Sulfate (Ms Contin (Er)) 30 mg BID PO Last administered on 10/29/18 08:42; Admin Dose 30 MG; Start 10/27/18 at 11:00 Clonazepam (Klonopin) 1 mg TID PO Last administered on 10/29/18 13:52; Admin Dose 1 MG; Start 10/27/18 at 13:00 Morphine Sulfate (morphine) 2 mg Q2H PRN IV SEVERE PAIN LEVEL 7-10 Last administered on 10/28/18 12:29; Admin Dose 2 MG; Start 10/27/18 at 18:30 Magnesium Oxide (Mag-Ox 400) 400 mg DAILY PO Last administered on 10/29/18 08:41; Admin Dose 400 MG; Start 10/28/18 at 09:00 Topiramate (Topamax) 25 mg BID PO Last administered on 10/29/18 08:41; Admin Dose 25 MG; Start 10/28/18 at 11:00 Sodium Chloride 1,000 ml @ 40 mls/hr Q24H IV Last administered on 10/29/18 01:55; Admin Dose 75 MLS/HR; Start 10/28/18 at 12:30 Guaifenesin (Mucinex) 600 mg BID PO Last administered on 10/29/18 08:41; Admin Dose 600 MG; Start 10/28/18 at 14:00 HANNAH MACIEL MD Oct 29, 2018 16:20
[2018-10-29 19:28] VITALS: BP 125/67; PULSE 67; RESP 18
[2018-10-29] MEDS: ATORVASTATIN 10 MG TAB PO SCH (20:18)
[2018-10-29] MEDS: TAMSULOSIN (SR) 0.4 MG CAP PO SCH (20:18)
[2018-10-30] VITALS (8 sets, daily range): BP systolic 122–148; BP diastolic 64–72; PULSE 78–113; RESP 18–21
[2018-10-30] MEDS: clonAZEPAM 0.5 MG TAB PO SCH ×3 (09:21→21:00)
[2018-10-30] MEDS: DULOXETINE 30 MG CAP DR PO SCH (09:21)
[2018-10-30] MEDS: GABAPENTIN 400 MG CAP PO SCH ×3 (09:22→21:00)
[2018-10-30] MEDS: ROPINIROLE 0.25 MG TAB PO SCH ×3 (09:22→21:00)
[2018-10-30] MEDS: CHOLECALCIFEROL 1,000 UNIT TAB PO SCH (09:22)
[2018-10-30] MEDS: DOXYCYCLINE 100 MG TAB PO SCH ×2 (09:22→21:00)
[2018-10-30] MEDS: morphine (ER) 30 MG TAB PO SCH ×2 (09:22→21:00)
[2018-10-30] MEDS: MAGNESIUM OXIDE 400 MG TAB PO SCH ×2 (09:22→21:00)
[2018-10-30] MEDS: GUAIFENESIN LA 600 MG TABSR PO SCH ×2 (09:23→21:00)
[2018-10-30] MEDS: RISPERIDONE 2 MG TAB PO SCH ×2 (09:23→21:00)
[2018-10-30] MEDS: TOPIRAMATE 25 MG TAB PO SCH ×2 (09:23→21:00)
[2018-10-30] MEDS: SENNA/DOCUSATE NA (8.6MG/50MG) TAB PO SCH ×2 (09:23→21:00)
[2018-10-30] MEDS: AMLODIPINE 2.5 MG TAB PO SCH (09:23)
--- NOTE | 2018-10-30 10:19 | PN ---
DATE: 10/30/2018 SUBJECTIVE: The patient is lethargic, agitated overnight. No other events noted. OBJECTIVE: VITAL SIGNS: Blood pressure is 135/72, respirations 18, pulse 67, temperature 98.0. HEENT: Head is normocephalic. NECK: Supple. HEART: Regular rate. LUNGS: Show diminished breath sounds at the base. ABDOMEN: Soft, nontender to palpation without rebound or guarding. EXTREMITIES: Negative for clubbing, cyanosis, no edema. DERMATOLOGIC: No rashes. MUSCULOSKELETAL: No joint effusion. NEUROLOGIC: No change in exam. MEDICATIONS: The patient's medications have been reviewed. LABORATORY DATA: Currently pending. ASSESSMENT AND PLAN: 1. Nonoliguric acute kidney injury on top of chronic kidney disease with previous baseline creatinin e of around 1.5 mg/dL. Etiology of current acute kidney injury is secondary to hemodynamics, possibl e progression of chronic kidney disease. The patient's renal function has been fluctuating. Current ly, the patient appears euvolemic on exam. IV fluids were discontinued. We will continue current tr eatment plans, supportive care, renally dose all medicines. We will discontinue IV fluids. 2. Anemia. Continue to monitor hemoglobin and hematocrit levels. 3. Mineral bone disorder, monitor calcium and phosphorus levels. 4. Bradycardia, improved. 5. Leukopenia and thrombocytopenia, etiology is unclear. Continue to monitor. 6. Benign prostatic hypertrophy. Continue Flomax. 7. Anxiety disorder, schizophrenia. Continue medical management. 8. History of headaches. Continue to monitor. Dictated By: BELLE ART DO NR/NTS Conf#: [id number] DID#: [id number] CC: MARY JO PARRY NP; HANNAH MACIEL MD; ANIYAH KING MD;*EndCC*
--- NOTE | 2018-10-30 17:28 | PN ---
Date/Time of Note Date/Time of Note DATE: 10/30/18 TIME: 17:27 Assessment/Plan VTE Prophylaxis Risk score (from Nsg)>0 risk: 3 SCD applied (from Ns): Yes SCD contraindicated: low risk/ambulating Pharmacological prophylaxis: LMWH Lines/Catheters IV Catheter Type (from Nrsg): Saline Lock Assessment/Plan Hospital Course Assessment/ plan 1. Sinus bradycardia, stable resolved. Possibly due to low magnesium levels. May benefit from less Flomax 2. Hypomagnesemia, unknown etiology possibly diet associated, stable replace 3. Chronic generalized anxiety disorder/benzodiazepine dependence, challenging to control 4. Chronic schizophrenia, appreciate behavioral health assistance 5. Failure to thrive, stable discharge back to [facility] when renal function improved 6. Chronic sinusitis? ENT available at [facility] 7. Acute renal failure on CKD baseline 1.5, stable hydrate/ review medicines/ watch for obstruction 8. BPH chronic? Decrease Flomax if feasible. 9. Tobacco abuse status post counseling offered patch 10. Chronic hepatitis C viremia 11. History of stroke? 12. Anemia unknown etiology 13. Headaches due to anxiety? Consider Topamax Subjective: 10/29 10/29 occasional headaches no fever no loss of speech or vision. No syncope fainting 10/30 no events Objective: Vss Physical exam No pallor droop Regular no m/r/g Clear Benign No edema Result Diagram: 10/30/18 1021 10/30/18 1021 Results 24hrs Laboratory Tests Test 10/30/18 10:21 White Blood Count 5.8 Red Blood Count 3.56 L Hemoglobin 11.5 L Hematocrit 34.2 L Mean Corpuscular Volume 96.1 Mean Corpuscular Hemoglobin 32.3 Mean Corpuscular Hemoglobin Concent 33.6 Red Cell Distribution Width 12.2 Platelet Count 74 L Mean Platelet Volume 9.7 Immature Granulocytes % 0.300 Neutrophils % 69.5 Lymphocytes % 16.8 Monocytes % 10.0 Eosinophils % 2.9 Basophils % 0.5 Nucleated Red Blood Cells % 0.0 Immature Granulocytes # 0.020 Neutrophils # 4.0 Lymphocytes # 1.0 Monocytes # 0.6 Eosinophils # 0.2 Basophils # 0.0 Nucleated Red Blood Cells # 0.0 Sodium Level 140 Potassium Level 4.4 Chloride Level 107 Carbon Dioxide Level 25 Anion Gap 8 Blood Urea Nitrogen 34 H Creatinine 2.98 H Est Glomerular Filtrat Rate mL/min 21 L Glucose Level 159 Calcium Level 8.5 Phosphorus Level 4.2 Magnesium Level 2.0 Total Bilirubin 0.6 Direct Bilirubin 0.00 Indirect Bilirubin 0.6 Aspartate Amino Transf (AST/SGOT) 21 Alanine Aminotransferase (ALT/SGPT) 21 Alkaline Phosphatase 64 Total Protein 6.4 Albumin 3.1 L Globulin 3.30 H Albumin/Globulin Ratio 0.93 Exam/Review of Systems Exam Vitals Vital Signs Date Temp Pulse Resp B/P (MAP) Pulse Ox O2 O2 Flow FiO2 Time Delivery Rate 10/30/18 99.8 99 18 124/67 95 Nasal 14:47 (86) Cannula 10/29/18 2.0 06:38 Intake and Output 10/29/18 10/29/18 10/30/18 1414:59 22:59 06:59 IntakeIntake Total 1420 ml 890 ml BalanceBalance 1420 ml 890 ml Results Results 24hrs Laboratory Tests Test 10/30/18 10:21 White Blood Count 5.8 Red Blood Count 3.56 L Hemoglobin 11.5 L Hematocrit 34.2 L Mean Corpuscular Volume 96.1 Mean Corpuscular Hemoglobin 32.3 Mean Corpuscular Hemoglobin Concent 33.6 Red Cell Distribution Width 12.2 Platelet Count 74 L Mean Platelet Volume 9.7 Immature Granulocytes % 0.300 Neutrophils % 69.5 Lymphocytes % 16.8 Monocytes % 10.0 Eosinophils % 2.9 Basophils % 0.5 Nucleated Red Blood Cells % 0.0 Immature Granulocytes # 0.020 Neutrophils # 4.0 Lymphocytes # 1.0 Monocytes # 0.6 Eosinophils # 0.2 Basophils # 0.0 Nucleated Red Blood Cells # 0.0 Sodium Level 140 Potassium Level 4.4 Chloride Level 107 Carbon Dioxide Level 25 Anion Gap 8 Blood Urea Nitrogen 34 H Creatinine 2.98 H Est Glomerular Filtrat Rate mL/min 21 L Glucose Level 159 Calcium Level 8.5 Phosphorus Level 4.2 Magnesium Level 2.0 Total Bilirubin 0.6 Direct Bilirubin 0.00 Indirect Bilirubin 0.6 Aspartate Amino Transf (AST/SGOT) 21 Alanine Aminotransferase (ALT/SGPT) 21 Alkaline Phosphatase 64 Total Protein 6.4 Albumin 3.1 L Globulin 3.30 H Albumin/Globulin Ratio 0.93 Medications Medication Current Medications IV Flush (NS 3 ml) 3 ml PER PROTOCOL IV ; Start 10/27/18 at 00:00 Ondansetron HCl (Zofran Tab) 4 mg Q6H PRN PO NAUSEA/VOMITING; Start 10/27/18 at 00:00 Acetaminophen (Tylenol Tab) 650 mg Q6H PRN PO .PAIN 1-3 OR TEMP Last administered on 10/29/18 08:42; Admin Dose 650 MG; Start 10/27/18 at 00:00 Docusate Sodium (Colace) 100 mg Q12H PRN PO .CONSTIPATION; Start 10/27/18 at 00:00 Bisacodyl (Dulcolax) 5 mg DAILY PRN PO .CONSTIPATION; Start 10/27/18 at 00:00 Tramadol HCl (Ultram) 50 mg Q6H PRN PO MODERATE PAIN LEVEL 4-6 Last administered on 10/28/18 09:14; Admin Dose 50 MG; Start 10/27/18 at 03:30 Hydralazine HCl (Apresoline) 10 mg Q4H PRN IV HYPERTENSION Last administered on 10/27/18 05:07; Admin Dose 10 MG; Start 10/27/18 at 05:00 Amlodipine Besylate (Norvasc) 5 mg DAILY PO Last administered on 10/30/18 09:23; Admin Dose 5 MG; Start 10/27/18 at 09:00 Cholecalciferol (Vitamin D) 1,000 unit DAILY PO Last administered on 10/30/18 09:22; Admin Dose 1,000 UNIT; Start 10/27/18 at 09:00 Duloxetine HCl (Cymbalta) 120 mg DAILY PO Last administered on 10/30/18 09:21; Admin Dose 120 MG; Start 10/27/18 at 09:00 Risperidone (Risperdal) 2 mg BID PO Last administered on 10/30/18 09:23; Admin Dose 2 MG; Start 10/27/18 at 09:00 Ropinirole HCl (Requip) 0.25 mg TID PO Last administered on 10/30/18 09:22; Admin Dose 0.25 MG; Start 10/27/18 at 10:30 Atorvastatin Calcium (Lipitor) 10 mg DAILY@21 PO Last administered on 10/29/18 20:18; Admin Dose 10 MG; Start 10/27/18 at 21:00 Senna/Docusate Sodium (Senokot-S) 1 tab BID PO Last administered on 10/30/18 09:23; Admin Dose 1 TAB; Start 10/27/18 at 21:00 Doxycycline Hyclate (Vibramycin) 100 mg BID PO Last administered on 10/30/18 09:22; Admin Dose 100 MG; Start 10/27/18 at 09:00 Gabapentin (Neurontin) 400 mg TID PO Last administered on 10/30/18 09:22; Admin Dose 400 MG; Start 10/27/18 at 13:00 Morphine Sulfate (Ms Contin (Er)) 30 mg BID PO Last administered on 10/30/18 09:22; Admin Dose 30 MG; Start 10/27/18 at 11:00 Clonazepam (Klonopin) 1 mg TID PO Last administered on 10/30/18:; Admin Dose 1 MG; Start 10/27/18 at 13:00 Morphine Sulfate (morphine) 2 mg Q2H PRN IV SEVERE PAIN LEVEL 7-10 Last administered on 10/28/18 12:29; Admin Dose 2 MG; Start 10/27/18 at 18:30 Topiramate (Topamax) 25 mg BID PO Last administered on 10/30/18:23; Admin Dose 25 MG; Start 10/28/18 at 11:00 Guaifenesin (Mucinex) 600 mg BID PO Last administered on 10/30/18:; Admin Dose 600 MG; Start 10/28/18 at 14:00 Magnesium Oxide (Mag-Ox 400) 400 mg BID PO Last administered on 10/30/18 09:22; Admin Dose 400 MG; Start 10/29/18 at 21:00 Tamsulosin HCl (Flomax) 0.4 mg HS PO Last administered on 10/29/18 20:18; Admin Dose 0.4 MG; Start 10/29/18 at 21:00 HANNAH MACIEL MD Oct 30, 2018 17:28
--- NOTE | 2018-10-30 17:36 | QN ---
Documentation Comment Patient is a 68-year-old male presents from [facility], who is currently on the telemetry unit for low heart rates. Currently unable to evaluate patient because patient is very sedated SOHAN CAMARGO NP Oct 30, 2018 17:36
[2018-10-30] MEDS: ATORVASTATIN 10 MG TAB PO SCH (21:00)
[2018-10-30] MEDS: TAMSULOSIN (SR) 0.4 MG CAP PO SCH (21:00)
[2018-10-30] MEDS ORDERED: LEVALBUTEROL (NEB) 1.25 MG/0.5 ML AMP HHN ONE (21:30)
[2018-10-30] MEDS ORDERED: ACETYLCYSTEINE 20% 4 ML VIAL NEB ONE (21:30)
[2018-10-30] MEDS ORDERED: IPRATROPIUM (NEB) 0.5 MG/2.5 ML AMP HHN ONE (21:30)
[2018-10-30] MEDS ORDERED: LEVALBUTEROL (NEB) 1.25 MG/0.5 ML AMP HHN PRN (23:30)
[2018-10-30] MEDS ORDERED: IPRATROPIUM (NEB) 0.5 MG/2.5 ML AMP HHN PRN (23:30)
[2018-10-30] MEDS ORDERED: ACETYLCYSTEINE 20% 4 ML VIAL NEB PRN (23:30)
[2018-10-31] VITALS (14 sets, daily range): BP systolic 90–137; BP diastolic 52–83; PULSE 66–96; RESP 14–21
[2018-10-31] MEDS ORDERED: ACETAMINOPHEN 1000MG/100ML IV 100 ML IVPB ONE
[2018-10-31] MEDS: CEFEPIME 1GM/50 ML (PMX) 50 ML IVPB SCH ×3 (00:27→21:30)
[2018-10-31] MEDS ORDERED: VANCOMYCIN IV PER PHARMACY XX SCH (01:00)
[2018-10-31] MEDS ORDERED: HALOPERIDOL 5 MG INJ IM ONE (02:30)
[2018-10-31] MEDS ORDERED: VANCOMYCIN HCL 1.75 GM in SOD CHLORIDE 0.9% 500 ML IVPB SCH (03:00)
[2018-10-31] MEDS ORDERED: LORAZEPAM 2 MG INJ IV ONE (03:00)
[2018-10-31] MEDS ORDERED: clonAZEPAM 0.5 MG TAB PO ONE (03:30)
[2018-10-31] MEDS ORDERED: DIPHENHYDRAMINE 50 MG INJ IV ONE (04:00)
[2018-10-31] MEDS ORDERED: SOD CHLORIDE 0.9% 250 ML IV ONE (04:30)
[2018-10-31] MEDS: ROPINIROLE 0.25 MG TAB PO SCH ×3 (09:00→22:09)
[2018-10-31] MEDS: MAGNESIUM OXIDE 400 MG TAB PO SCH ×2 (09:34→22:09)
[2018-10-31] MEDS: clonAZEPAM 0.5 MG TAB PO SCH ×3 (09:34→22:08)
[2018-10-31] MEDS: SENNA/DOCUSATE NA (8.6MG/50MG) TAB PO SCH ×2 (09:35→21:00)
[2018-10-31] MEDS: morphine (ER) 30 MG TAB PO SCH ×2 (09:35→22:09)
[2018-10-31] MEDS: DULOXETINE 30 MG CAP DR PO SCH (09:36)
[2018-10-31] MEDS: DOXYCYCLINE 100 MG TAB PO SCH ×2 (09:36→22:08)
[2018-10-31] MEDS: CHOLECALCIFEROL 1,000 UNIT TAB PO SCH (09:36)
[2018-10-31] MEDS: AMLODIPINE 2.5 MG TAB PO SCH (09:36)
[2018-10-31] MEDS: GUAIFENESIN LA 600 MG TABSR PO SCH ×2 (09:36→22:08)
[2018-10-31] MEDS: GABAPENTIN 400 MG CAP PO SCH ×3 (09:42→21:00)
--- NOTE | 2018-10-31 09:47 | PN ---
DATE: 10/31/2018 SUBJECTIVE: The patient was transferred to telemetry overnight. The patient was placed on high flow oxygen. The patient remains agitated, unable to give adequate history. No other events noted. OBJECTIVE: VITAL SIGNS: Blood pressure is 117/68, respirations 18, pulse 78, temperature 98.7. HEENT: Head is normocephalic. NECK: Supple. HEART: Regular rate. LUNGS: Show diminished breath sounds at the base. ABDOMEN: Soft, nontender to palpation without rebound or guarding. EXTREMITIES: Negative for clubbing, cyanosis, no edema. DERMATOLOGIC: No rashes. MUSCULOSKELETAL: No joint effusion. NEUROLOGIC: No change in exam. MEDICATIONS: The patient's medications have been reviewed. LABORATORY DATA: From 10/31/2018 was reviewed. ASSESSMENT AND PLAN: 1. Nonoliguric acute kidney injury on top of chronic kidney disease with previous baseline creatinin e of around 2.5 mg/dL. Etiology of acute kidney injury is likely secondary to hemodynamics, possible progression of underlying chronic kidney disease. The patient's renal function appears to be stabil izing around a creatinine of 3.0 mg/dL. At this point, continue to monitor, continue supportive care , renally dose all medicines. 2. Anemia. Continue to monitor hemoglobin and hematocrit levels. 3. Mineral bone disorder. Monitor calcium and phosphorus levels. 4. Acute hypoxemic respiratory failure, etiology is secondary to pneumonia. The patient is on high flow oxygen. Follow up chest x-ray. Continue antibiotics, continue nebulizers. Monitor closely. 5. Chronic schizophrenia and behavioral disorder. Continue to monitor. Follow up with psychiatry. 6. Benign prostatic hypertrophy. Continue Flomax. 7. History of hepatitis C with viremia, continue to monitor. 8. Sinus bradycardia, resolved. 9. Hypomagnesemia. Continue to monitor and replete as needed. Dictated By: BELLE ART DO NR/NTS Conf#: [id number] DID#: [id number] CC: HANNAH MACIEL MD; ANIYAH KING MD; MARY JO PARRY [employer] S[employer]ER;*EndCC*
[2018-10-31] MEDS: TOPIRAMATE 25 MG TAB PO SCH ×2 (13:25→22:10)
[2018-10-31] MEDS: RISPERIDONE 2 MG TAB PO SCH ×2 (13:25→22:09)
[2018-10-31] MEDS: morphine 2 MG INJ IV PRN (13:26)
--- NOTE | 2018-10-31 14:44 | PN ---
Date/Time of Note Date/Time of Note DATE: 10/31/18 TIME: 14:41 Assessment/Plan VTE Prophylaxis Risk score (from Nsg)>0 risk: 4 SCD applied (from Ns): Yes SCD contraindicated: low risk/ambulating Pharmacological prophylaxis: LMWH Lines/Catheters IV Catheter Type (from Nrsg): Saline Lock Urinary Cath still in place: No Assessment/Plan Hospital Course Assessment/ plan 1. Sinus bradycardia, stable resolved. Possibly due to low mag. May benefit from less Flomax 2. Hypomagnesemia, unknown etiology possibly diet associated, stable replace 3. Chronic generalized anxiety disorder/benzodiazepine dependence, challenging to control 4. Chronic schizophrenia, appreciate behavioral health assistance 5. Failure to thrive, stable discharge back to [facility] when renal function improved 6. Chronic sinusitis? ENT available at [facility] 7. Acute renal failure on CKD baseline 1.5, stable hydrate/ review medicines/ watch for obstruction 8. BPH chronic? Decrease Flomax if feasible. 9. Tobacco abuse status post counseling offered patch 10. Chronic hepatitis C viremia 11. History of stroke? 12. Anemia unknown etiology 13. Headaches due to anxiety? Consider Topamax 14. Acute agitation challenging therapy 15. Nonadherence, prognosis challenging 16. Likely aspiration pneumonia, mild stable try antibiotics Subjective: 10/29 occasional headaches no fever no loss of speech or vision. No syncope fainting 10/30 no events 10/31: Events noted: Agitation possible aspiration pneumonia: RRTed- Fever or hypoxia pulled off his oxygen cough thick sputum. Objective: Vss Physical exam No pallor/ droop Regular no m/r/g Clear Benign No edema Result Diagram: 10/31/18 0642 10/31/18 0642 Results 24hrs Laboratory Tests Test 10/30/18 23:00 10/31/18 06:42 Blood Gas Specimen Source Blood arterial Arterial Blood Date Drawn 10/30/2018 11:15:11 PM Arterial Blood pH (Temp corrected) 7.330 L Arterial Blood pCO2 (Temp correct) 46.6 H Arterial Blood pO2 (Temp corrected) 69.7 L Arterial Blood HCO3 24.0 Arterial Blood Base Excess -2.2 Arterial Blood Oxygen Saturation 93.0 L Rohit Test ACCEPTAB Arterial Blood Gas Puncture Site Right Radial Arterial Blood Carboxyhemoglobin 1.0 Arterial Blood Methemoglobin 0.4 Blood Gas A-a O2 Differential 596.7 H Oxyhemoglobin Percent 91.7 L Blood Gas Temperature 37.0 Blood Gas Actual Respiration Rate 26 Blood Gas Modality MASK - NRB FiO2 100.0 Blood Gas Critical Value Read Back A NATAN RN Blood Gas Notified Whom KB Blood Gas Notified Time 10/30/2018 11:26:03 PM White Blood Count 4.9 Red Blood Count 3.49 L Hemoglobin 11.1 L Hematocrit 33.5 L Mean Corpuscular Volume 96.0 Mean Corpuscular Hemoglobin 31.8 Mean Corpuscular Hemoglobin Concent 33.1 Red Cell Distribution Width 12.6 Platelet Count 80 L Mean Platelet Volume 9.8 Immature Granulocytes % 0.200 Neutrophils % Segmented Neutrophils % (Manual) 51 Band Neutrophils % (Manual) 22 H Lymphocytes % Lymphocytes % (Manual) 11 L Monocytes % Monocytes % (Manual) 12 H Eosinophils % Basophils % Basophils % (Manual) 1 Metamyelocytes % (manual) 1 H Myelocytes % (Manual) 2 H Nucleated Red Blood Cells % 0.0 Immature Granulocytes # 0.010 Neutrophils # Neutrophils # (Manual) 2.5 Band Neutrophils # 1.0 H Lymphocytes (Manual) 0.5 L Lymphocytes # Monocytes # Monocytes # (Manual) 0.5 Eosinophils # Basophils # Basophils # (Manual) 0.0 Metamyelocytes # 0.0 Myelocytes # 0.0 Nucleated Red Blood Cells # Platelet Estimate DECREASED Giant Platelets 3 H Anisocytosis 1+ Sodium Level 142 Potassium Level 4.7 Chloride Level 110 Carbon Dioxide Level 25 Anion Gap 7 Blood Urea Nitrogen 38 H Creatinine 3.03 H Est Glomerular Filtrat Rate mL/min 21 L Glucose Level 135 Calcium Level 8.4 Phosphorus Level 4.1 Magnesium Level 2.1 Exam/Review of Systems Exam Vitals Vital Signs Date Temp Pulse Resp B/P (MAP) Pulse Ox O2 O2 Flow FiO2 Time Delivery Rate 10/31/18 96 70 13:30 10/31/18 85 12:27 10/31/18 98.2 20 117/56 Nasal 11:51 (76) Cannula 10/30/18 15.0 22:15 Intake and Output 10/30/18 10/30/18 10/31/18 1414:59 22:59 06:59 IntakeIntake Total 610 ml 480 ml 400 ml OutputOutput Total 0 ml BalanceBalance 610 ml 480 ml 400 ml Results Results 24hrs Laboratory Tests Test 10/30/18 23:00 10/31/18 06:42 Blood Gas Specimen Source Blood arterial Arterial Blood Date Drawn 10/30/2018 11:15:11 PM Arterial Blood pH (Temp corrected) 7.330 L Arterial Blood pCO2 (Temp correct) 46.6 H Arterial Blood pO2 (Temp corrected) 69.7 L Arterial Blood HCO3 24.0 Arterial Blood Base Excess -2.2 Arterial Blood Oxygen Saturation 93.0 L Rohit Test ACCEPTAB Arterial Blood Gas Puncture Site Right Radial Arterial Blood Carboxyhemoglobin 1.0 Arterial Blood Methemoglobin 0.4 Blood Gas A-a O2 Differential 596.7 H Oxyhemoglobin Percent 91.7 L Blood Gas Temperature 37.0 Blood Gas Actual Respiration Rate 26 Blood Gas Modality MASK - NRB FiO2 100.0 Blood Gas Critical Value Read Back A NATAN FARRELL Blood Gas Notified Whom KB Blood Gas Notified Time 10/30/2018 11:26:03 PM White Blood Count 4.9 Red Blood Count 3.49 L Hemoglobin 11.1 L Hematocrit 33.5 L Mean Corpuscular Volume 96.0 Mean Corpuscular Hemoglobin 31.8 Mean Corpuscular Hemoglobin Concent 33.1 Red Cell Distribution Width 12.6 Platelet Count 80 L Mean Platelet Volume 9.8 Immature Granulocytes % 0.200 Neutrophils % Segmented Neutrophils % (Manual) 51 Band Neutrophils % (Manual) 22 H Lymphocytes % Lymphocytes % (Manual) 11 L Monocytes % Monocytes % (Manual) 12 H Eosinophils % Basophils % Basophils % (Manual) 1 Metamyelocytes % (manual) 1 H Myelocytes % (Manual) 2 H Nucleated Red Blood Cells % 0.0 Immature Granulocytes # 0.010 Neutrophils # Neutrophils # (Manual) 2.5 Band Neutrophils # 1.0 H Lymphocytes (Manual) 0.5 L Lymphocytes # Monocytes # Monocytes # (Manual) 0.5 Eosinophils # Basophils # Basophils # (Manual) 0.0 Metamyelocytes # 0.0 Myelocytes # 0.0 Nucleated Red Blood Cells # Platelet Estimate DECREASED Giant Platelets 3 H Anisocytosis 1+ Sodium Level 142 Potassium Level 4.7 Chloride Level 110 Carbon Dioxide Level 25 Anion Gap 7 Blood Urea Nitrogen 38 H Creatinine 3.03 H Est Glomerular Filtrat Rate mL/min 21 L Glucose Level 135 Calcium Level 8.4 Phosphorus Level 4.1 Magnesium Level 2.1 Medications Medication Current Medications IV Flush (NS 3 ml) 3 ml PER PROTOCOL IV ; Start 10/27/18 at 00:00 Ondansetron HCl (Zofran Tab) 4 mg Q6H PRN PO NAUSEA/VOMITING; Start 10/27/18 at 00:00 Acetaminophen (Tylenol Tab) 650 mg Q6H PRN PO .PAIN 1-3 OR TEMP Last administered on 10/29/18 08:42; Admin Dose 650 MG; Start 10/27/18 at 00:00 Docusate Sodium (Colace) 100 mg Q12H PRN PO .CONSTIPATION; Start 10/27/18 at 00:00 Bisacodyl (Dulcolax) 5 mg DAILY PRN PO .CONSTIPATION; Start 10/27/18 at 00:00 Tramadol HCl (Ultram) 50 mg Q6H PRN PO MODERATE PAIN LEVEL 4-6 Last administered on 10/28/18 09:14; Admin Dose 50 MG; Start 10/27/18 at 03:30 Hydralazine HCl (Apresoline) 10 mg Q4H PRN IV HYPERTENSION Last administered on 10/27/18 05:07; Admin Dose 10 MG; Start 10/27/18 at 05:00 Amlodipine Besylate (Norvasc) 5 mg DAILY PO Last administered on 10/31/18 09:36; Admin Dose 5 MG; Start 10/27/18 at 09:00 Cholecalciferol (Vitamin D) 1,000 unit DAILY PO Last administered on 10/31/18 09:36; Admin Dose 1,000 UNIT; Start 10/27/18 at 09:00 Duloxetine HCl (Cymbalta) 120 mg DAILY PO Last administered on 10/31/18 09:36; Admin Dose 120 MG; Start 10/27/18 at 09:00 Risperidone (Risperdal) 2 mg BID PO Last administered on 10/31/18 13:25; Admin Dose 2 MG; Start 10/27/18 at 09:00 Ropinirole HCl (Requip) 0.25 mg TID PO Last administered on 10/31/18 13:26; Admin Dose 0.25 MG; Start 10/27/18 at 10:30 Atorvastatin Calcium (Lipitor) 10 mg DAILY@21 PO Last administered on 10/29/18 20:18; Admin Dose 10 MG; Start 10/27/18 at 21:00 Senna/Docusate Sodium (Senokot-S) 1 tab BID PO Last administered on 10/31/18 09:35; Admin Dose 1 TAB; Start 10/27/18 at 21:00 Doxycycline Hyclate (Vibramycin) 100 mg BID PO Last administered on 10/31/18 09:36; Admin Dose 100 MG; Start 10/27/18 at 09:00 Gabapentin (Neurontin) 400 mg TID PO Last administered on 10/31/18 13:24; Admin Dose 400 MG; Start 10/27/18 at 13:00 Morphine Sulfate (Ms Contin (Er)) 30 mg BID PO Last administered on 10/31/18 09:35; Admin Dose 30 MG; Start 10/27/18 at 11:00 Clonazepam (Klonopin) 1 mg TID PO Last administered on 10/31/18 13:24; Admin Dose 1 MG; Start 10/27/18 at 13:00 Morphine Sulfate (morphine) 2 mg Q2H PRN IV SEVERE PAIN LEVEL 7-10 Last administered on 10/31/18 13:26; Admin Dose 2 MG; Start 10/27/18 at 18:30 Topiramate (Topamax) 25 mg BID PO Last administered on 10/31/18 13:25; Admin Dose 25 MG; Start 10/28/18 at 11:00 Guaifenesin (Mucinex) 600 mg BID PO Last administered on 10/31/18 09:36; Admin Dose 600 MG; Start 10/28/18 at 14:00 Magnesium Oxide (Mag-Ox 400) 400 mg BID PO Last administered on 10/31/18 09:34; Admin Dose 400 MG; Start 10/29/18 at 21:00 Tamsulosin HCl (Flomax) 0.4 mg HS PO Last administered on 10/29/18 20:18; Admin Dose 0.4 MG; Start 10/29/18 at 21:00 Levalbuterol (Xopenex Neb) 1.25 mg Q3H RESP THERAPY PRN HHN Shortness of breath; Start 10/30/18 at 23:30 Ipratropium [place] (Atrovent 0.02% (Neb)) 0.5 mg Q3H RESP THERAPY PRN HHN SHORTNESS OF BREATH; Start 10/30/18 at 23:30 Acetylcysteine (Mucomyst) 2 ml Q3H RESP THERAPY PRN NEB SHORTNESS OF BREATH; Start 10/30/18 at 23:30 Vancomycin HCl (Vanco Iv Per Pharmacy) VANCOMYCIN PER PHARMACY PER PROTOCOL XX ; Start 10/31/18 at 01:00 Cefepime HCl 50 ml @ 100 mls/hr Q12 IVPB Last administered on 10/31/18at 09:34; Admin Dose 100 MLS/HR; Start 10/31/18 at 00:00 Vancomycin/Sodium Chloride 250 ml @ 125 mls/hr Q24H IVPB ; Start 11/01/18 at 03:00 HANNAH MACIEL MD Oct 31, 2018 14:44
[2018-10-31] MEDS ORDERED: SOD CHLORIDE 0.9% 500 ML IV ONE ×2 (15:00→22:00)
[2018-10-31] MEDS: LEVALBUTEROL (NEB) 0.63 MG/3 ML AMP HHN SCH ×2 (17:10→23:17)
[2018-10-31] MEDS: ACETYLCYSTEINE 20% 4 ML VIAL NEB SCH ×2 (17:11→23:17)
[2018-10-31] MEDS: TAMSULOSIN (SR) 0.4 MG CAP PO SCH (22:08)
[2018-10-31] MEDS: ATORVASTATIN 10 MG TAB PO SCH (22:09)
[2018-11-01] VITALS (9 sets, daily range): BP systolic 92–116; BP diastolic 52–68; PULSE 75–88; RESP 18–22
[2018-11-01] MEDS ORDERED: VANCOMYCIN 750 MG (PMX) 250 ML IVPB SCH (03:00)
[2018-11-01] MEDS: morphine 2 MG INJ IV PRN ×2 (03:20→06:39)
[2018-11-01] MEDS: LEVALBUTEROL (NEB) 0.63 MG/3 ML AMP HHN SCH ×2 (08:28→15:21)
[2018-11-01] MEDS: ACETYLCYSTEINE 20% 4 ML VIAL NEB SCH ×2 (08:28→15:20)
[2018-11-01] MEDS: AMLODIPINE 2.5 MG TAB PO SCH (09:00)
--- NOTE | 2018-11-01 09:02 | PN ---
DATE: 11/01/2018 SUBJECTIVE: The patient is stable, no events overnight. The patient remains on high flow oxygen. OBJECTIVE: VITAL SIGNS: Blood pressure is 107/55, pulse 84, respirations 22, temperature 97.8. HEENT: Head is normocephalic. NECK: Supple. HEART: Regular rate. LUNGS: Show diminished breath sounds at the base. ABDOMEN: Soft, nontender to palpation without rebound or guarding. EXTREMITIES: Negative for clubbing, cyanosis, no edema. DERMATOLOGIC: No rashes. MUSCULOSKELETAL: No joint effusion. NEUROLOGIC: No change in exam. MEDICATIONS: The patient's medications have been reviewed. LABORATORY DATA: Has been reviewed. ASSESSMENT AND PLAN: 1. Nonoliguric acute kidney injury on top of chronic kidney disease with previous baseline creatinin e around 2.5 mg/dL. Etiology of current acute kidney injury is secondary to hemodynamics. Possible progression of underlying CKD. The patient's renal function appears to be stabilizing around creatin ine of 3.0 mg/dL. At this point, continue current treatment plan, supportive care, renally dose all meds. 2. Anemia. Monitor hemoglobin and hematocrit levels. 3. Mineral bone disorder, monitor calcium and phosphorus levels. 4. Acute hypoxemic respiratory failure, etiology secondary to pneumonia. Continue current medical m anagement. Continue high flow oxygen and wean off as tolerated. 5. Antibiotics and nebulizers. 6. Schizophrenia behavioral disorder. Continue to monitor. Follow up with psychiatry. 7. Benign prostatic hypertrophy. Continue Flomax. 8. History of hepatitis C. 9. Sinus bradycardia, resolved. 10. Hypomagnesemia. Continue to monitor and replete as needed. Dictated By: BELLE ART DO NR/NTS Conf#: [id number] DID#: [id number] CC: ANIYAH KING MD; HANNAH MACIEL MD; MARY JO PARRY NP;*EndCC*
[2018-11-01] MEDS: ROPINIROLE 0.25 MG TAB PO SCH ×3 (09:29→21:58)
[2018-11-01] MEDS: CEFEPIME 1GM/50 ML (PMX) 50 ML IVPB SCH ×2 (09:29→21:54)
[2018-11-01] MEDS: SENNA/DOCUSATE NA (8.6MG/50MG) TAB PO SCH ×2 (09:30→22:06)
[2018-11-01] MEDS: CHOLECALCIFEROL 1,000 UNIT TAB PO SCH (09:30)
[2018-11-01] MEDS: DOXYCYCLINE 100 MG TAB PO SCH ×2 (09:30→21:56)
[2018-11-01] MEDS: GUAIFENESIN LA 600 MG TABSR PO SCH ×2 (09:30→22:03)
[2018-11-01] MEDS: MAGNESIUM OXIDE 400 MG TAB PO SCH ×2 (09:30→21:58)
[2018-11-01] MEDS: GABAPENTIN 400 MG CAP PO SCH ×3 (09:30→22:00)
[2018-11-01] MEDS: TOPIRAMATE 25 MG TAB PO SCH ×2 (09:34→22:06)
[2018-11-01] MEDS: clonAZEPAM 0.5 MG TAB PO SCH ×3 (09:39→21:55)
[2018-11-01] MEDS: morphine (ER) 30 MG TAB PO SCH ×2 (09:40→22:07)
[2018-11-01] MEDS: RISPERIDONE 2 MG TAB PO SCH ×2 (11:29→22:01)
[2018-11-01] MEDS: DULOXETINE 30 MG CAP DR PO SCH (11:30)
--- NOTE | 2018-11-01 16:46 | PN ---
Date/Time of Note Date/Time of Note DATE: 11/01/18 TIME: 16:45 Assessment/Plan VTE Prophylaxis Risk score (from Ns)>0 risk: 7 SCD applied (from Ns): Yes SCD contraindicated: low risk/ambulating Pharmacological prophylaxis: LMWH Lines/Catheters IV Catheter Type (from Nrsg): Peripheral IV Urinary Cath still in place: No Assessment/Plan Hospital Course Assessment/ plan 1. Sinus bradycardia, stable/ resolved. Possibly due to low mag. May benefit from less Flomax 2. Hypomagnesemia, unknown etiology possibly diet associated, stable replaced 3. Chronic generalized anxiety disorder/benzodiazepine dependence, challenging to control 4. Chronic schizophrenia, appreciate behavioral health assistance 5. Failure to thrive, stable discharge back to [facility] when renal function improved 6. Chronic sinusitis? ENT available at [facility] 7. Acute renal failure on CKD baseline 1.5, stable hydrate/ review medicines/ watch for obstruction 8. BPH chronic? Decrease Flomax if feasible. 9. Tobacco abuse status post counseling offered patch 10. Chronic hepatitis C viremia 11. History of stroke? 12. Anemia unknown etiology 13. Headaches due to anxiety? Consider Topamax 14. Acute agitation challenging therapy 15. Nonadherence, prognosis challenging 16. Likely aspiration pneumonia, proved continue improved antibiotics Subjective: 10/29 occasional headaches no fever no loss of speech or vision. No syncope fainting 10/30 no events 10/31: Events noted: Agitation possible aspiration pneumonia: RRTed- Fever or hypoxia pulled off his oxygen cough thick sputum. 11/01 less agitation less distress. Positive cough O: Vss Pe No pallor Regular no m/r/g Clear, no tachypnea Benign No edema Result Diagram: 11/01/18 0618 11/01/18 0618 Results 24hrs Laboratory Tests Test 11/01/18 06:18 White Blood Count 3.3 #L Red Blood Count 3.16 L Hemoglobin 10.0 L Hematocrit 30.9 L Mean Corpuscular Volume 97.8 Mean Corpuscular Hemoglobin 31.6 Mean Corpuscular Hemoglobin Concent 32.4 Red Cell Distribution Width 12.8 Platelet Count 69 L Mean Platelet Volume 10.3 Immature Granulocytes % 0.300 Neutrophils % 48.8 Lymphocytes % 28.2 Monocytes % 14.2 H Eosinophils % 8.2 H Basophils % 0.3 Nucleated Red Blood Cells % 0.0 Immature Granulocytes # 0.010 Neutrophils # 1.6 Lymphocytes # 0.9 Monocytes # 0.5 Eosinophils # 0.3 Basophils # 0.0 Nucleated Red Blood Cells # 0.0 Sodium Level 140 Potassium Level 4.4 Chloride Level 108 Carbon Dioxide Level 27 Anion Gap 5 Blood Urea Nitrogen 40 H Creatinine 2.76 H Est Glomerular Filtrat Rate mL/min 23 L Glucose Level 111 Calcium Level 8.0 L Phosphorus Level 4.1 Magnesium Level 2.2 Exam/Review of Systems Exam Vitals Vital Signs Date Temp Pulse Resp B/P (MAP) Pulse Ox O2 O2 Flow FiO2 Time Delivery Rate 11/01/18 98.0 88 22 114/66 96 High Flow 15:49 (82) 11/01/18 60 15:21 10/30/18 15.0 22:15 Intake and Output 10/31/18 10/31/18 11/01/18 1515:00 23:00 07:00 IntakeIntake Total 50 ml 1100 ml 1000 ml BalanceBalance 50 ml 1100 ml 1000 ml Results Results 24hrs Laboratory Tests Test 11/01/18 06:18 White Blood Count 3.3 #L Red Blood Count 3.16 L Hemoglobin 10.0 L Hematocrit 30.9 L Mean Corpuscular Volume 97.8 Mean Corpuscular Hemoglobin 31.6 Mean Corpuscular Hemoglobin Concent 32.4 Red Cell Distribution Width 12.8 Platelet Count 69 L Mean Platelet Volume 10.3 Immature Granulocytes % 0.300 Neutrophils % 48.8 Lymphocytes % 28.2 Monocytes % 14.2 H Eosinophils % 8.2 H Basophils % 0.3 Nucleated Red Blood Cells % 0.0 Immature Granulocytes # 0.010 Neutrophils # 1.6 Lymphocytes # 0.9 Monocytes # 0.5 Eosinophils # 0.3 Basophils # 0.0 Nucleated Red Blood Cells # 0.0 Sodium Level 140 Potassium Level 4.4 Chloride Level 108 Carbon Dioxide Level 27 Anion Gap 5 Blood Urea Nitrogen 40 H Creatinine 2.76 H Est Glomerular Filtrat Rate mL/min 23 L Glucose Level 111 Calcium Level 8.0 L Phosphorus Level 4.1 Magnesium Level 2.2 Medications Medication Current Medications IV Flush (NS 3 ml) 3 ml PER PROTOCOL IV ; Start 10/27/18 at 00:00 Ondansetron HCl (Zofran Tab) 4 mg Q6H PRN PO NAUSEA/VOMITING; Start 10/27/18 at 00:00 Acetaminophen (Tylenol Tab) 650 mg Q6H PRN PO .PAIN 1-3 OR TEMP Last administered on 10/29/18 08:42; Admin Dose 650 MG; Start 10/27/18 at 00:00 Docusate Sodium (Colace) 100 mg Q12H PRN PO .CONSTIPATION; Start 10/27/18 at 00:00 Bisacodyl (Dulcolax) 5 mg DAILY PRN PO .CONSTIPATION; Start 10/27/18 at 00:00 Tramadol HCl (Ultram) 50 mg Q6H PRN PO MODERATE PAIN LEVEL 4-6 Last administered on 10/28/18 09:14; Admin Dose 50 MG; Start 10/27/18 at 03:30 Hydralazine HCl (Apresoline) 10 mg Q4H PRN IV HYPERTENSION Last administered on 10/27/18 05:07; Admin Dose 10 MG; Start 10/27/18 at 05:00 Amlodipine Besylate (Norvasc) 5 mg DAILY PO Last administered on 10/31/18 09:36; Admin Dose 5 MG; Start 10/27/18 at 09:00 Cholecalciferol (Vitamin D) 1,000 unit DAILY PO Last administered on 11/01/18 09:30; Admin Dose 1,000 UNIT; Start 10/27/18 at 09:00 Duloxetine HCl (Cymbalta) 120 mg DAILY PO Last administered on 11/01/18 11:30; Admin Dose 120 MG; Start 10/27/18 at 09:00 Risperidone (Risperdal) 2 mg BID PO Last administered on 11/01/18 11:29; Admin Dose 2 MG; Start 10/27/18 at 09:00 Ropinirole HCl (Requip) 0.25 mg TID PO Last administered on 11/01/18 12:53; Admin Dose 0.25 MG; Start 10/27/18 at 10:30 Atorvastatin Calcium (Lipitor) 10 mg DAILY@21 PO Last administered on 10/31/18 22:09; Admin Dose 10 MG; Start 10/27/18 at 21:00 Senna/Docusate Sodium (Senokot-S) 1 tab BID PO Last administered on 11/01/18 09:30; Admin Dose 1 TAB; Start 10/27/18 at 21:00 Doxycycline Hyclate (Vibramycin) 100 mg BID PO Last administered on 11/01/18 0 9:30; Admin Dose 100 MG; Start 10/27/18 at 09:00 Gabapentin (Neurontin) 400 mg TID PO Last administered on 11/01/18 12:54; Admin Dose 400 MG; Start 10/27/18 at 13:00 Morphine Sulfate (Ms Contin (Er)) 30 mg BID PO Last administered on 11/01/18 09:40; Admin Dose 30 MG; Start 10/27/18 at 11:00 Clonazepam (Klonopin) 1 mg TID PO Last administered on 11/01/18 12:53; Admin Dose 1 MG; Start 10/27/18 at 13:00 Morphine Sulfate (morphine) 2 mg Q2H PRN IV SEVERE PAIN LEVEL 7-10 Last administered on 11/01/18 06:39; Admin Dose 2 MG; Start 10/27/18 at 18:30 Topiramate (Topamax) 25 mg BID PO Last administered on 11/01/18 09:34; Admin Dose 25 MG; Start 10/28/18 at 11:00 Guaifenesin (Mucinex) 600 mg BID PO Last administered on 11/01/18 09:30; Admin Dose 600 MG; Start 10/28/18 at 14:00 Magnesium Oxide (Mag-Ox 400) 400 mg BID PO Last administered on 11/01/18 09:30; Admin Dose 400 MG; Start 10/29/18 at 21:00 Tamsulosin HCl (Flomax) 0.4 mg HS PO Last administered on 10/31/18 22:08; Admin Dose 0.4 MG; Start 10/29/18 at 21:00 Levalbuterol (Xopenex Neb) 1.25 mg Q3H RESP THERAPY PRN HHN Shortness of breath; Start 10/30/18 at 23:30 Ipratropium [place] (Atrovent 0.02% (Neb)) 0.5 mg Q3H RESP THERAPY PRN HHN SHORTNESS OF BREATH; Start 10/30/18 at 23:30 Vancomycin HCl (Vanco Iv Per Pharmacy) VANCOMYCIN PER PHARMACY PER PROTOCOL XX ; Start 10/31/18 at 01:00 Cefepime HCl 50 ml @ 100 mls/hr Q12 IVPB Last administered on 11/01/18 09:29; Admin Dose 100 MLS/HR; Start 10/31/18 at 00:00 Acetylcysteine (Mucomyst) 2 ml Q8H RESP THERAPY NEB Last administered on 11/01/18at 15:20; Admin Dose 2 ML; Start 10/31/18 at 16:00 Levalbuterol (Xopenex Neb) 0.63 mg Q8H RESP THERAPY HHN Last administered on 11/01/18at 15:21; Admin Dose 0.63 MG; Start 10/31/18 at 16:00 HANNAH MACIEL MD Nov 01, 2018 16:46
[2018-11-01] MEDS: TAMSULOSIN (SR) 0.4 MG CAP PO SCH (21:58)
[2018-11-01] MEDS: ATORVASTATIN 10 MG TAB PO SCH (22:03)
[2018-11-02] VITALS (10 sets, daily range): BP systolic 102–135; BP diastolic 56–64; PULSE 64–86; RESP 18–20
[2018-11-02] MEDS: ACETYLCYSTEINE 20% 4 ML VIAL NEB SCH ×4 (01:00→23:59)
[2018-11-02] MEDS: LEVALBUTEROL (NEB) 0.63 MG/3 ML AMP HHN SCH ×4 (01:02→23:58)
[2018-11-02] MEDS: BISACODYL (EC) 5 MG TAB PO PRN (06:10)
[2018-11-02] MEDS: CEFEPIME 1GM/50 ML (PMX) 50 ML IVPB SCH ×2 (08:18→21:24)
[2018-11-02] MEDS: GABAPENTIN 400 MG CAP PO SCH ×3 (08:21→21:24)
[2018-11-02] MEDS: CHOLECALCIFEROL 1,000 UNIT TAB PO SCH (08:21)
[2018-11-02] MEDS: MAGNESIUM OXIDE 400 MG TAB PO SCH ×2 (08:22→21:24)
[2018-11-02] MEDS: DULOXETINE 30 MG CAP DR PO SCH (08:22)
[2018-11-02] MEDS: GUAIFENESIN LA 600 MG TABSR PO SCH ×2 (08:22→21:24)
[2018-11-02] MEDS: DOXYCYCLINE 100 MG TAB PO SCH ×2 (08:22→21:24)
[2018-11-02] MEDS: clonAZEPAM 0.5 MG TAB PO SCH ×3 (08:22→21:38)
[2018-11-02] MEDS: AMLODIPINE 2.5 MG TAB PO SCH (08:23)
[2018-11-02] MEDS: TOPIRAMATE 25 MG TAB PO SCH ×2 (09:25→21:25)
[2018-11-02] MEDS: ROPINIROLE 0.25 MG TAB PO SCH ×3 (09:25→21:25)
[2018-11-02] MEDS: SENNA/DOCUSATE NA (8.6MG/50MG) TAB PO SCH ×2 (09:25→21:25)
[2018-11-02] MEDS: RISPERIDONE 2 MG TAB PO SCH ×2 (09:25→21:24)
[2018-11-02] MEDS: morphine (ER) 30 MG TAB PO SCH ×2 (09:25→21:25)
--- NOTE | 2018-11-02 09:39 | PN ---
DATE: 11/02/2018 SUBJECTIVE: The patient is stable. No events overnight. OBJECTIVE: VITAL SIGNS: Blood pressure is 107/60, pulse 78, respiration is 20, temperature is 98.7. HEENT: Head is normocephalic. NECK: Supple. HEART: Regular rate. LUNGS: Show diminished breath sounds at the base. ABDOMEN: Soft, nontender to palpation. No rebound or guarding. EXTREMITIES: Negative for clubbing, cyanosis, no edema. DERMATOLOGIC: No rashes. MUSCULOSKELETAL: No joint effusion. NEUROLOGIC: No change in exam. MEDICATIONS: Have been reviewed. LABORATORY DATA: Has been reviewed. ASSESSMENT AND PLAN: 1. Nonoliguric acute kidney injury on top of chronic kidney disease with previous baseline creatinin e around 2.5 mg/dL. Etiology is secondary to hemodynamics. The patient's renal function has been fl uctuating but slowly improving. Continue current treatment plan, supportive care, renally dose all m eds. 2. Anemia. Monitor hemoglobin and hematocrit levels. 3. Mineral bone disorder. Monitor calcium and phosphorus levels. 4. Acute hypoxemic respiratory failure. Etiology is secondary to pneumonia. Continue current medic al management. Continue high flow oxygen, wean off as tolerated. Continue antibiotics and nebulizer s. 5. Schizophrenia, behavioral disorder. Continue to monitor. Follow up with psychiatry. Continue m edical management. 6. Benign prostatic hypertrophy. Continue Flomax. 7. History of hepatitis C. 8. Sinus bradycardia, resolved. 9. Hypomagnesemia. Continue to monitor and replete as needed. Dictated By: BELLE ART DO NR/NTS Conf#: [id number] DID#: [id number] CC: ANIYAH KNIG MD;*EndCC*
[2018-11-02] MEDS: VANCOMYCIN 1 GM 250 ML IVPB SCH (13:33)
--- NOTE | 2018-11-02 17:45 | PN ---
Date/Time of Note Date/Time of Note DATE: 11/02/18 TIME: 17:44 Assessment/Plan VTE Prophylaxis Risk score (from Ns)>0 risk: 5 SCD applied (from Ns): Yes SCD contraindicated: low risk/ambulating Pharmacological prophylaxis: LMWH Lines/Catheters IV Catheter Type (from Nrs): Saline Lock Urinary Cath still in place: No Assessment/Plan Hospital Course Assessment/ plan 1. Sinus bradycardia, stable/ resolved. Possibly due to low mag. May benefit from less Flomax 2. Hypomagnesemia, unknown etiology possibly diet associated, stable replaced 3. Chronic generalized anxiety disorder/benzodiazepine dependence, challenging to control 4. Chronic schizophrenia, appreciate behavioral health assistance 5. Failure to thrive, stable discharge back to [facility] when renal function improved 6. Chronic sinusitis? ENT available at [facility] 7. Acute renal failure on CKD baseline 1.5, stable hydrate/ review medicines/ watch for obstruction 8. BPH chronic? Decrease Flomax if feasible. 9. Tobacco abuse status post counseling offered patch 10. Chronic hepatitis C viremia 11. History of stroke? 12. Anemia unknown etiology 13. Headaches due to anxiety? Consider Topamax 14. Acute agitation challenging therapy 15. Nonadherence, prognosis challenging 16. Likely aspiration pneumonia, improved continue improved antibiotics Subjective: 10/29 occasional headaches no fever no loss of speech or vision. No syncope fainting 10/30 no events 10/31: Events noted: Agitation possible aspiration pneumonia: RRTed- Fever or hypoxia pulled off his oxygen cough thick sputum. 11/01 less agitation less distress. Positive cough 11/02: No events. Cough. Appetite 35%. O: Vss PE No pallor Regular no m/r/g Clear, no tachypnea Benign No edema Result Diagram: 11/02/18 0909 11/02/18 0909 Results 24hrs Laboratory Tests Test 11/02/18 09:09 11/02/18 09:13 White Blood Count 4.1 #L Red Blood Count 3.12 L Hemoglobin 10.2 L Hematocrit 30.4 L Mean Corpuscular Volume 97.4 Mean Corpuscular Hemoglobin 32.7 Mean Corpuscular Hemoglobin Concent 33.6 Red Cell Distribution Width 12.7 Platelet Count 83 #L Mean Platelet Volume 9.8 Immature Granulocytes % 0.200 Neutrophils % 60.7 Lymphocytes % 19.2 Monocytes % 12.3 H Eosinophils % 7.1 H Basophils % 0.5 Nucleated Red Blood Cells % 0.0 Immature Granulocytes # 0.010 Neutrophils # 2.5 Lymphocytes # 0.8 Monocytes # 0.5 Eosinophils # 0.3 Basophils # 0.0 Nucleated Red Blood Cells # 0.0 Sodium Level 140 Potassium Level 4.4 Chloride Level 108 Carbon Dioxide Level 25 Anion Gap 7 Blood Urea Nitrogen 37 H Creatinine 2.53 H Est Glomerular Filtrat Rate mL/min 26 L Glucose Level 108 Calcium Level 8.4 Phosphorus Level 4.3 Magnesium Level 2.2 Lab Scanned Report REFERENCE LAB Exam/Review of Systems Exam Vitals Vital Signs Date Temp Pulse Resp B/P (MAP) Pulse Ox O2 O2 Flow FiO2 Time Delivery Rate 11/02/18 79 16:10 11/02/18 22 95 50 15:40 11/02/18 97.7 119/59 High Flow 15:29 (79) 10/30/18 15.0 22:15 Intake and Output 11/01/18 11/01/18 11/02/18 1515:00 23:00 07:00 IntakeIntake Total 520 ml 500 ml OutputOutput Total 900 ml 800 ml BalanceBalance -380 ml -300 ml Results Results 24hrs Laboratory Tests Test 11/02/18 09:09 11/02/18 09:13 White Blood Count 4.1 #L Red Blood Count 3.12 L Hemoglobin 10.2 L Hematocrit 30.4 L Mean Corpuscular Volume 97.4 Mean Corpuscular Hemoglobin 32.7 Mean Corpuscular Hemoglobin Concent 33.6 Red Cell Distribution Width 12.7 Platelet Count 83 #L Mean Platelet Volume 9.8 Immature Granulocytes % 0.200 Neutrophils % 60.7 Lymphocytes % 19.2 Monocytes % 12.3 H Eosinophils % 7.1 H Basophils % 0.5 Nucleated Red Blood Cells % 0.0 Immature Granulocytes # 0.010 Neutrophils # 2.5 Lymphocytes # 0.8 Monocytes # 0.5 Eosinophils # 0.3 Basophils # 0.0 Nucleated Red Blood Cells # 0.0 Sodium Level 140 Potassium Level 4.4 Chloride Level 108 Carbon Dioxide Level 25 Anion Gap 7 Blood Urea Nitrogen 37 H Creatinine 2.53 H Est Glomerular Filtrat Rate mL/min 26 L Glucose Level 108 Calcium Level 8.4 Phosphorus Level 4.3 Magnesium Level 2.2 Lab Scanned Report REFERENCE LAB Medications Medication Current Medications IV Flush (NS 3 ml) 3 ml PER PROTOCOL IV ; Start 10/27/18 at 00:00 Ondansetron HCl (Zofran Tab) 4 mg Q6H PRN PO NAUSEA/VOMITING; Start 10/27/18 at 00:00 Acetaminophen (Tylenol Tab) 650 mg Q6H PRN PO .PAIN 1-3 OR TEMP Last administered on 10/29/18 08:42; Admin Dose 650 MG; Start 10/27/18 at 00:00 Docusate Sodium (Colace) 100 mg Q12H PRN PO .CONSTIPATION; Start 10/27/18 at 00:00 Bisacodyl (Dulcolax) 5 mg DAILY PRN PO .CONSTIPATION Last administered on 11/02/18 06:10; Admin Dose 5 MG; Start 10/27/18 at 00:00 Tramadol HCl (Ultram) 50 mg Q6H PRN PO MODERATE PAIN LEVEL 4-6 Last administered on 10/28/18 09:14; Admin Dose 50 MG; Start 10/27/18 at 03:30 Hydralazine HCl (Apresoline) 10 mg Q4H PRN IV HYPERTENSION Last administered on 10/27/18 05:07; Admin Dose 10 MG; Start 10/27/18 at 05:00 Amlodipine Besylate (Norvasc) 5 mg DAILY PO Last administered on 11/02/18 08:23; Admin Dose 5 MG; Start 10/27/18 at 09:00 Cholecalciferol (Vitamin D) 1,000 unit DAILY PO Last administered on 11/02/18 08:21; Admin Dose 1,000 UNIT; Start 10/27/18 at 09:00 Duloxetine HCl (Cymbalta) 120 mg DAILY PO Last administered on 11/02/18 08:22; Admin Dose 120 MG; Start 10/27/18 at 09:00 Risperidone (Risperdal) 2 mg BID PO Last administered on 11/02/18 09:25; Admin Dose 2 MG; Start 10/27/18 at 09:00 Ropinirole HCl (Requip) 0.25 mg TID PO Last administered on 11/02/18 12:48; Admin Dose 0.25 MG; Start 10/27/18 at 10:30 Atorvastatin Calcium (Lipitor) 10 mg DAILY@21 PO Last administered on 4/25/19at 22:03; Admin Dose 10 MG; Start 10/27/18 at 21:00 Senna/Docusate Sodium (Senokot-S) 1 tab BID PO Last administered on 11/02/18 09:25; Admin Dose 1 TAB; Start 10/27/18 at 21:00 Doxycycline Hyclate (Vibramycin) 100 mg BID PO Last administered on 11/02/18 08:22; Admin Dose 100 MG; Start 10/27/18 at 09:00 Gabapentin (Neurontin) 400 mg TID PO Last administered on 11/02/18 12:48; Admin Dose 400 MG; Start 10/27/18 at 13:00 Morphine Sulfate (Ms Contin (Er)) 30 mg BID PO Last administered on 11/02/18 09:25; Admin Dose 30 MG; Start 10/27/18 at 11:00 Clonazepam (Klonopin) 1 mg TID PO Last administered on 11/02/18 12:48; Admin Dose 1 MG; Start 10/27/18 at 13:00 Morphine Sulfate (morphine) 2 mg Q2H PRN IV SEVERE PAIN LEVEL 7-10 Last adm inistered on 11/01/18 06:39; Admin Dose 2 MG; Start 10/27/18 at 18:30 Topiramate (Topamax) 25 mg BID PO Last administered on 11/02/18 09:25; Admin Dose 25 MG; Start 10/28/18 at 11:00 Guaifenesin (Mucinex) 600 mg BID PO Last administered on 11/02/18 08:22; Admin Dose 600 MG; Start 10/28/18 at 14:00 Magnesium Oxide (Mag-Ox 400) 400 mg BID PO Last administered on 11/02/18 08:22; Admin Dose 400 MG; Start 10/29/18 at 21:00 Tamsulosin HCl (Flomax) 0.4 mg HS PO Last administered on 11/01/18 21:58; Admin Dose 0.4 MG; Start 10/29/18 at 21:00 Levalbuterol (Xopenex Neb) 1.25 mg Q3H RESP THERAPY PRN HHN Shortness of breath; Start 10/30/18 at 23:30 Ipratropium [place] (Atrovent 0.02% (Neb)) 0.5 mg Q3H RESP THERAPY PRN HHN SHORTNESS OF BREATH Last administered on 11/02/18at 01:00; Admin Dose 0.5 MG; Start 10/30/18 at 23:30 Vancomycin HCl (Vanco Iv Per Pharmacy) VANCOMYCIN PER PHARMACY PER PROTOCOL XX ; Start 10/31/18 at 01:00 Cefepime HCl 50 ml @ 100 mls/hr Q12 IVPB Last administered on 11/02/18at 08:18; Admin Dose 100 MLS/HR; Start 10/31/18 at 00:00 Acetylcysteine (Mucomyst) 2 ml Q8H RESP THERAPY NEB Last administered on 11/02/18at 15:39; Admin Dose 2 ML; Start 10/31/18 at 16:00 Levalbuterol (Xopenex Neb) 0.63 mg Q8H RESP THERAPY HHN Last administered on 11/02/18at 15:39; Admin Dose 0.63 MG; Start 10/31/18 at 16:00 Vancomycin HCl 250 ml @ 125 mls/hr Q36H IVPB Last administered on 11/02/18at 13:33; Admin Dose 125 MLS/HR; Start 11/02/18 at 13:00 HANNAH MACIEL MD Nov 02, 2018 17:44
[2018-11-02] MEDS: TAMSULOSIN (SR) 0.4 MG CAP PO SCH (21:24)
[2018-11-02] MEDS: ATORVASTATIN 10 MG TAB PO SCH (21:24)
[2018-11-03] VITALS (11 sets, daily range): BP systolic 111–154; BP diastolic 56–88; PULSE 81–101; RESP 18–20
[2018-11-03] MEDS: CEFEPIME 1GM/50 ML (PMX) 50 ML IVPB SCH ×2 (08:32→20:25)
[2018-11-03] MEDS: RISPERIDONE 2 MG TAB PO SCH ×2 (08:33→20:27)
[2018-11-03] MEDS: DOXYCYCLINE 100 MG TAB PO SCH (08:33)
[2018-11-03] MEDS: MAGNESIUM OXIDE 400 MG TAB PO SCH ×2 (08:33→20:27)
[2018-11-03] MEDS: CHOLECALCIFEROL 1,000 UNIT TAB PO SCH (08:33)
[2018-11-03] MEDS: clonAZEPAM 0.5 MG TAB PO SCH ×3 (08:33→20:27)
[2018-11-03] MEDS: ROPINIROLE 0.25 MG TAB PO SCH ×3 (08:33→20:25)
[2018-11-03] MEDS: GUAIFENESIN LA 600 MG TABSR PO SCH ×2 (08:33→20:25)
[2018-11-03] MEDS: GABAPENTIN 400 MG CAP PO SCH ×3 (08:33→20:26)
[2018-11-03] MEDS: TOPIRAMATE 25 MG TAB PO SCH ×2 (08:34→21:34)
[2018-11-03] MEDS: DULOXETINE 30 MG CAP DR PO SCH (08:34)
[2018-11-03] MEDS: AMLODIPINE 2.5 MG TAB PO SCH (08:34)
[2018-11-03] MEDS: SENNA/DOCUSATE NA (8.6MG/50MG) TAB PO SCH ×2 (08:35→20:27)
[2018-11-03] MEDS: morphine (ER) 30 MG TAB PO SCH (08:35)
[2018-11-03] MEDS: LEVALBUTEROL (NEB) 0.63 MG/3 ML AMP HHN SCH ×2 (08:43→16:32)
[2018-11-03] MEDS: ACETYLCYSTEINE 20% 4 ML VIAL NEB SCH ×2 (08:43→16:32)
--- NOTE | 2018-11-03 17:28 | PN ---
Date/Time of Note Date/Time of Note DATE: 11/03/18 TIME: 17:28 Assessment/Plan VTE Prophylaxis Risk score (from Nsg)>0 risk: 7 SCD applied (from Ns): Yes SCD contraindicated: low risk/ambulating Pharmacological prophylaxis: LMWH Lines/Catheters IV Catheter Type (from Nrsg): Saline Lock Urinary Cath still in place: No Assessment/Plan Hospital Course Assessment/ plan 1. Sinus bradycardia, stable/ resolved. Possibly due to low mag. May benefit from less Flomax 2. Hypomagnesemia, unknown etiology possibly diet associated, stable replaced 3. Chronic generalized anxiety disorder/benzodiazepine dependence, challenging to control 4. Chronic schizophrenia, appreciate behavioral health assistance 5. Failure to thrive, stable discharge back to [facility] when renal function improved 6. Chronic sinusitis? ENT available at [facility] 7. Acute renal failure on CKD baseline 1.5, stable hydrate/ review medicines/ watch for obstruction 8. BPH chronic? Decrease Flomax if feasible. 9. Tobacco abuse status post counseling offered patch 10. Chronic hepatitis C viremia 11. History of stroke? 12. Anemia unknown etiology 13. Headaches due to anxiety? Consider Topamax 14. Acute agitation challenging therapy 15. Nonadherence, prognosis challenging 16. Likely aspiration pneumonia, improved continue improved antibiotics Subjective: 10/29 occasional headaches no fever no loss of speech or vision. No syncope fainting 10/30 no events 10/31: Events noted: Agitation possible aspiration pneumonia: RRTed- Fever or hypoxia pulled off his oxygen cough thick sputum. 11/01 less agitation less distress. Positive cough 11/02: No events. Cough. Appetite 35%. : Possible little lethargic. Will cut back on some of his behavioral health medicines O: Vss PE No pallor Regular no m/r/g Clear, no tachypnea Benign No edema Result Diagram: 11/02/18 0909 11/03/18 0633 Results 24hrs Laboratory Tests Test 11/03/18 06:33 Sodium Level 147 H Potassium Level 4.9 Chloride Level 113 H Carbon Dioxide Level 24 Anion Gap 10 Blood Urea Nitrogen 39 H Creatinine 2.51 H Est Glomerular Filtrat Rate mL/min 26 L Glucose Level 92 Calcium Level 9.3 Phosphorus Level 4.3 Magnesium Level 2.4 Exam/Review of Systems Exam Vitals Vital Signs Date Temp Pulse Resp B/P (MAP) Pulse Ox O2 O2 Flow FiO2 Time Delivery Rate 11/03/18 76 20 16:32 11/03/18 95 6.0 16:32 11/03/18 98.2 133/88 Nasal 15:32 (103) Cannula 11/03/18 50 00:01 Intake and Output 11/02/18 11/02/18 11/03/18 1515:00 23:00 07:00 IntakeIntake Total 50 ml 970 ml 200 ml OutputOutput Total 1800 ml BalanceBalance 50 ml 970 ml -1600 ml Results Results 24hrs Laboratory Tests Test 11/03/18 06:33 Sodium Level 147 H Potassium Level 4.9 Chloride Level 113 H Carbon Dioxide Level 24 Anion Gap 10 Blood Urea Nitrogen 39 H Creatinine 2.51 H Est Glomerular Filtrat Rate mL/min 26 L Glucose Level 92 Calcium Level 9.3 Phosphorus Level 4.3 Magnesium Level 2.4 Medications Medication Current Medications IV Flush (NS 3 ml) 3 ml PER PROTOCOL IV ; Start 10/27/18 at 00:00 Ondansetron HCl (Zofran Tab) 4 mg Q6H PRN PO NAUSEA/VOMITING; Start 10/27/18 at 00:00 Acetaminophen (Tylenol Tab) 650 mg Q6H PRN PO .PAIN 1-3 OR TEMP Last administered on 10/29/18 08:42; Admin Dose 650 MG; Start 10/27/18 at 00:00 Docusate Sodium (Colace) 100 mg Q12H PRN PO .CONSTIPATION; Start 10/27/18 at 00:00 Bisacodyl (Dulcolax) 5 mg DAILY PRN PO .CONSTIPATION Last administered on 11/02/18at 06:10; Admin Dose 5 MG; Start 10/27/18 at 00:00 Tramadol HCl (Ultram) 50 mg Q6H PRN PO MODERATE PAIN LEVEL 4-6 Last administered on 10/28/18 09:14; Admin Dose 50 MG; Start 10/27/18 at 03:30 Hydralazine HCl (Apresoline) 10 mg Q4H PRN IV HYPERTENSION Last administered on 10/27/18at 05:07; Admin Dose 10 MG; Start 10/27/18 at 05:00 Amlodipine Besylate (Norvasc) 5 mg DAILY PO Last administered on 11/03/18 08:34; Admin Dose 5 MG; Start 10/27/18 at 09:00 Cholecalciferol (Vitamin D) 1,000 unit DAILY PO Last administered on 11/03/18 08:33; Admin Dose 1,000 UNIT; Start 10/27/18 at 09:00 Duloxetine HCl (Cymbalta) 120 mg DAILY PO Last administered on 11/03/18 08:34; Admin Dose 120 MG; Start 10/27/18 at 09:00 Risperidone (Risperdal) 2 mg BID PO Last administered on 11/03/18 08:33; Admin Dose 2 MG; Start 10/27/18 at 09:00 Ropinirole HCl (Requip) 0.25 mg TID PO Last administered on 11/03/18 16:15; Admin Dose 0.25 MG; Start 10/27/18 at 10:30 Atorvastatin Calcium (Lipitor) 10 mg DAILY@21 PO Last administered on 11/02/18 21:24; Admin Dose 10 MG; Start 10/27/18 at 21:00 Senna/Docusate Sodium (Senokot-S) 1 tab BID PO Last administered on 11/03/18 08:35; Admin Dose 1 TAB; Start 10/27/18 at 21:00 Doxycycline Hyclate (Vibramycin) 100 mg BID PO Last administered on 11/03/18 08:33; Admin Dose 100 MG; Start 10/27/18 at 09:00 Gabapentin (Neurontin) 400 mg TID PO Last administered on 11/03/18 16:16; Admin Dose 400 MG; Start 10/27/18 at 13:00 Morphine Sulfate (Ms Contin (Er)) 30 mg BID PO Last administered on 11/03/18 08:35; Admin Dose 30 MG; Start 10/27/18 at 11:00 Clonazepam (Klonopin) 1 mg TID PO Last administered on 11/03/18 16:16; Admin Dose 1 MG; Start 10/27/18 at 13:00 Morphine Sulfate (morphine) 2 mg Q2H PRN IV SEVERE PAIN LEVEL 7-10 Last administered on 11/01/18 06:39; Admin Dose 2 MG; Start 10/27/18 at 18:30 Topiramate (Topamax) 25 mg BID PO Last administered on 11/03/18 08:34; Admin Dose 25 MG; Start 10/28/18 at 11:00 Guaifenesin (Mucinex) 600 mg BID PO Last administered on 11/03/18 08:33; Admin Dose 600 MG; Start 10/28/18 at 14:00 Magnesium Oxide (Mag-Ox 400) 400 mg BID PO Last administered on 11/03/18 08:33; Admin Dose 400 MG; Start 10/29/18 at 21:00 Tamsulosin HCl (Flomax) 0.4 mg HS PO Last administered on 11/02/18 21:24; Admin Dose 0.4 MG; Start 10/29/18 at 21:00 Levalbuterol (Xopenex Neb) 1.25 mg Q3H RESP THERAPY PRN HHN Shortness of breath; Start 10/30/18 at 23:30 Ipratropium [place] (Atrovent 0.02% (Neb)) 0.5 mg Q3H RESP THERAPY PRN HHN SHORTNESS OF BREATH Last administered on 11/02/18 01:00; Admin Dose 0.5 MG; Start 10/30/18 at 23:30 Vancomycin HCl (Vanco Iv Per Pharmacy) VANCOMYCIN PER PHARMACY PER PROTOCOL XX ; Start 10/31/18 at 01:00 Cefepime HCl 50 ml @ 100 mls/hr Q12 IVPB Last administered on 11/03/18 08:32; Admin Dose 100 MLS/HR; Start 10/31/18 at 00:00 Acetylcysteine (Mucomyst) 2 ml Q8H RESP THERAPY NEB Last administered on 11/03/18 16:32; Admin Dose 2 ML; Start 10/31/18 at 16:00 Levalbuterol (Xopenex Neb) 0.63 mg Q8H RESP THERAPY HHN Last administered on 11/03/18 16:32; Admin Dose 0.63 MG; Start 10/31/18 at 16:00 Vancomycin HCl 250 ml @ 125 mls/hr Q36H IVPB Last administered on 11/02/18 13:33; Admin Dose 125 MLS/HR; Start 11/02/18 at 13:00 HANNAH MACIEL MD Nov 03, 2018 17:28
[2018-11-03] MEDS: morphine (ER) 15 MG TAB PO SCH (20:26)
[2018-11-03] MEDS: ATORVASTATIN 10 MG TAB PO SCH (20:26)
[2018-11-03] MEDS: TAMSULOSIN (SR) 0.4 MG CAP PO SCH (20:27)
[2018-11-04] VITALS (9 sets, daily range): BP systolic 108–148; BP diastolic 59–75; PULSE 70–96; RESP 18–19
[2018-11-04] MEDS: ACETYLCYSTEINE 20% 4 ML VIAL NEB SCH ×3 (00:50→16:04)
[2018-11-04] MEDS: LEVALBUTEROL (NEB) 0.63 MG/3 ML AMP HHN SCH ×3 (00:50→16:04)
[2018-11-04] MEDS: VANCOMYCIN 1 GM 250 ML IVPB SCH (01:33)
[2018-11-04] MEDS: CEFEPIME 1GM/50 ML (PMX) 50 ML IVPB SCH ×2 (08:28→20:15)
[2018-11-04] MEDS: clonAZEPAM 0.5 MG TAB PO SCH ×2 (08:31→20:15)
[2018-11-04] MEDS: MAGNESIUM OXIDE 400 MG TAB PO SCH ×2 (08:31→20:16)
[2018-11-04] MEDS: CHOLECALCIFEROL 1,000 UNIT TAB PO SCH (08:31)
[2018-11-04] MEDS: SENNA/DOCUSATE NA (8.6MG/50MG) TAB PO SCH ×2 (08:32→20:16)
[2018-11-04] MEDS: TOPIRAMATE 25 MG TAB PO SCH ×2 (08:32→20:16)
[2018-11-04] MEDS: DULOXETINE 30 MG CAP DR PO SCH (08:32)
[2018-11-04] MEDS: RISPERIDONE 2 MG TAB PO SCH ×2 (08:32→20:16)
[2018-11-04] MEDS: ROPINIROLE 0.25 MG TAB PO SCH ×3 (08:32→20:16)
[2018-11-04] MEDS: morphine (ER) 15 MG TAB PO SCH ×2 (08:32→20:16)
[2018-11-04] MEDS: GABAPENTIN 400 MG CAP PO SCH ×3 (08:32→20:16)
[2018-11-04] MEDS: AMLODIPINE 2.5 MG TAB PO SCH (08:33)
[2018-11-04] MEDS: GUAIFENESIN LA 600 MG TABSR PO SCH ×2 (08:33→20:16)
[2018-11-04] MEDS: DEXTROSE 5% 1,000 ML IV SCH (08:43)
--- NOTE | 2018-11-04 09:05 | PN ---
DATE: 11/04/2018 SUBJECTIVE: The patient is stable, remains confused. No fevers, chills, nausea, vomiting. OBJECTIVE: VITAL SIGNS: Blood pressure is 108/59, respiration 18, pulse 70, temperature 98.3. HEENT: Head is normocephalic. NECK: Supple. HEART: Regular rate. LUNGS: Show diminished breath sounds at base. ABDOMEN: Soft, nontender to palpation. No rebound or guarding. EXTREMITIES: Negative for clubbing, cyanosis, no edema. DERMATOLOGIC: No rashes. MUSCULOSKELETAL: No joint effusions. NEUROLOGIC: No change in exam. MEDICATIONS: The patient's medications have been reviewed. LABORATORY DATA: Has been reviewed. ASSESSMENT AND PLAN: 1. Nonoliguric acute kidney injury with previous baseline creatinine around 2.5 mg/dL. Etiology of acute kidney injury is secondary to hemodynamics. Renal function has been fluctuating. Continue to monitor. Continue current treatment plans, supportive care, renally dose all meds. 2. Anemia. Monitor hemoglobin and hematocrit levels. 3. Hypernatremia. Etiology is likely due to insensible losses in conjunction with decreased oral in take. We will start the patient on D5 water. Continue to encourage free water intake. 3. Mineral bone disorder, monitor calcium and phosphorus levels. 4. Acute hypoxic respiratory failure, etiology secondary to pneumonia. Continue current medical man agement. Continue supplemental oxygen, continue antibiotics and nebulizers. 5. Schizophrenia behavioral disorder. Continue current treatment plan. Follow up with psychiatry. 6. Benign prostatic hypertrophy. Continue Flomax. 7. History of hepatitis C. 8. Status bradycardia. 9. Hypomagnesemia. Continue to monitor and replete as needed. Dictated By: BELLE GHOSH/DAV Conf#: [id number] DID#: [id number] CC: ANIYAH KING MD;*EndCC*
--- NOTE | 2018-11-04 15:14 | PN ---
Date/Time of Note Date/Time of Note DATE: 11/04/18 TIME: 15:13 Assessment/Plan VTE Prophylaxis Risk score (from Ns)>0 risk: 4 SCD applied (from [facility] [place]): No SCD contraindicated: low risk/ambulating Pharmacological prophylaxis: NA/contraindicated Pharm contraindication: low risk/ambulating Lines/Catheters IV Catheter Type (from [facility]): [place] Urinary Cath still in place: No Assessment/Plan Hospital Course Assessment/ plan 1. Sinus bradycardia, stable/ resolved. Possibly due to low mag. May benefit from less Flomax 2. Hypomagnesemia, unknown etiology possibly diet associated, stable replaced 3. Chronic generalized anxiety disorder/benzodiazepine dependence, challenging to control 4. Chronic schizophrenia, appreciate behavioral health assistance 5. Failure to thrive, stable discharge back to [facility] when renal function improved 6. Chronic sinusitis? ENT available at [facility] 7. Acute renal failure on CKD baseline 1.5, stable hydrate/ review medicines/ watch for obstruction 8. BPH chronic? Decrease Flomax if feasible. 9. Tobacco abuse status post counseling offered patch 10. Chronic hepatitis C viremia 11. History of stroke? 12. Anemia unknown etiology 13. Headaches due to anxiety? Consider Topamax 14. Acute agitation challenging therapy 15. Nonadherence, prognosis challenging 16. Likely aspiration pneumonia, improved continue improved antibiotics Subjective: 10/29 occasional headaches no fever no loss of speech or vision. No syncope fainting 10/30 no events 10/31: Events noted: Agitation possible aspiration pneumonia: RRTed- Fever or hypoxia pulled off his oxygen cough thick sputum. 11/01 less agitation less distress. Positive cough 11/02: No events. Cough. Appetite 35%. /: Possible little lethargic. Will cut back on some of his behavioral health medicines 11/04 improving. creatinine not at goal O: Vss PE No pallor Regular no m/r/g Clear, no tachypnea Benign No edema Result Diagram: 11/04/18 0611/04/18 0605 Results 24hrs Laboratory Tests Test 11/04/18 06:05 White Blood Count 5.8 # Red Blood Count 3.20 L Hemoglobin 10.5 L Hematocrit 31.1 L Mean Corpuscular Volume 97.2 Mean Corpuscular Hemoglobin 32.8 Mean Corpuscular Hemoglobin Concent 33.8 Red Cell Distribution Width 12.4 Platelet Count 121 #L Mean Platelet Volume 9.7 Immature Granulocytes % 0.700 H Neutrophils % 68.3 Lymphocytes % 16.3 Monocytes % 10.7 Eosinophils % 3.5 Basophils % 0.5 Nucleated Red Blood Cells % 0.0 Immature Granulocytes # 0.040 H Neutrophils # 3.9 Lymphocytes # 0.9 Monocytes # 0.6 Eosinophils # 0.2 Basophils # 0.0 Nucleated Red Blood Cells # 0.0 Sodium Level 148 H Potassium Level 4.7 Chloride Level 114 H Carbon Dioxide Level 28 Anion Gap 6 Blood Urea Nitrogen 43 H Creatinine 2.71 H Est Glomerular Filtrat Rate mL/min 24 L Glucose Level 112 Calcium Level 9.2 Phosphorus Level 4.6 Magnesium Level 2.4 Exam/Review of Systems Exam Vitals Vital Signs Date Temp Pulse Resp B/P (MAP) Pulse Ox O2 O2 Flow FiO2 Time Delivery Rate 11/04/18 97.7 88 18 118/66 93 15:01 (83) 11/04/18 6.0 08:08 11/04/18 Nasal 08:08 Cannula 11/03/18 50 00:01 Intake and Output 11/03/18 11/03/18 11/04/18 1515:00 23:00 07:00 IntakeIntake Total 850 ml 450 ml OutputOutput Total 750 ml BalanceBalance 850 ml -300 ml Results Results 24hrs Laboratory Tests Test 11/04/18 06:05 White Blood Count 5.8 # Red Blood Count 3.20 L Hemoglobin 10.5 L Hematocrit 31.1 L Mean Corpuscular Volume 97.2 Mean Corpuscular Hemoglobin 32.8 Mean Corpuscular Hemoglobin Concent 33.8 Red Cell Distribution Width 12.4 Platelet Count 121 #L Mean Platelet Volume 9.7 Immature Granulocytes % 0.700 H Neutrophils % 68.3 Lymphocytes % 16.3 Monocytes % 10.7 Eosinophils % 3.5 Basophils % 0.5 Nucleated Red Blood Cells % 0.0 Immature Granulocytes # 0.040 H Neutrophils # 3.9 Lymphocytes # 0.9 Monocytes # 0.6 Eosinophils # 0.2 Basophils # 0.0 Nucleated Red Blood Cells # 0.0 Sodium Level 148 H Potassium Level 4.7 Chloride Level 114 H Carbon Dioxide Level 28 Anion Gap 6 Blood Urea Nitrogen 43 H Creatinine 2.71 H Est Glomerular Filtrat Rate mL/min 24 L Glucose Level 112 Calcium Level 9.2 Phosphorus Level 4.6 Magnesium Level 2.4 Medications Medication Current Medications IV Flush (NS 3 ml) 3 ml PER PROTOCOL IV ; Start 10/27/18 at 00:00 Ondansetron HCl (Zofran Tab) 4 mg Q6H PRN PO NAUSEA/VOMITING; Start 10/27/18 at 00:00 Acetaminophen (Tylenol Tab) 650 mg Q6H PRN PO .PAIN 1-3 OR TEMP Last administered on 10/29/18 08:42; Admin Dose 650 MG; Start 10/27/18 at 00:00 Docusate Sodium (Colace) 100 mg Q12H PRN PO .CONSTIPATION; Start 10/27/18 at 00:00 Bisacodyl (Dulcolax) 5 mg DAILY PRN PO .CONSTIPATION Last administered on 11/02/18 06:10; Admin Dose 5 MG; Start 10/27/18 at 00:00 Tramadol HCl (Ultram) 50 mg Q6H PRN PO MODERATE PAIN LEVEL 4-6 Last administered on 10/28/18 09:14; Admin Dose 50 MG; Start 10/27/18 at 03:30 Hydralazine HCl (Apresoline) 10 mg Q4H PRN IV HYPERTENSION Last administered on 10/27/18 05:07; Admin Dose 10 MG; Start 10/27/18 at 05:00 Amlodipine Besylate (Norvasc) 5 mg DAILY PO Last administered on 11/04/18 08:33; Admin Dose 5 MG; Start 10/27/18 at 09:00 Cholecalciferol (Vitamin D) 1,000 unit DAILY PO Last administered on 11/04/18 08:31; Admin Dose 1,000 UNIT; Start 10/27/18 at 09:00 Duloxetine HCl (Cymbalta) 120 mg DAILY PO Last administered on 11/04/18 08:32; Admin Dose 120 MG; Start 10/27/18 at 09:00 Risperidone (Risperdal) 2 mg BID PO Last administered on 11/04/18 08:32; Admin Dose 2 MG; Start 10/27/18 at 09:00 Ropinirole HCl (Requip) 0.25 mg TID PO Last administered on 11/04/18 12:41; Admin Dose 0.25 MG; Start 10/27/18 at 10:30 Atorvastatin Calcium (Lipitor) 10 mg DAILY@21 PO Last administered on 11/03/18 20:26; Admin Dose 10 MG; Start 10/27/18 at 21:00 Senna/Docusate Sodium (Senokot-S) 1 tab BID PO Last administered on 11/04/18 08:32; Admin Dose 1 TAB; Start 10/27/18 at 21:00 Gabapentin (Neurontin) 400 mg TID PO Last administered on 11/04/18 12:41; Admin Dose 400 MG; Start 10/27/18 at 13:00 Morphine Sulfate (morphine) 2 mg Q2H PRN IV SEVERE PAIN LEVEL 7-10 Last administered on 11/01/18 06:39; Admin Dose 2 MG; Start 10/27/18 at 18:30 Topiramate (Topamax) 25 mg BID PO Last administered on 11/04/18 08:32; Admin Dose 25 MG; Start 10/28/18 at 11:00 Guaifenesin (Mucinex) 600 mg BID PO Last administered on 11/04/18 08:33; Admin Dose 600 MG; Start 10/28/18 at 14:00 Magnesium Oxide (Mag-Ox 400) 400 mg BID PO Last administered on 11/04/18 08:31; Admin Dose 400 MG; Start 10/29/18 at 21:00 Tamsulosin HCl (Flomax) 0.4 mg HS PO Last administered on 11/03/18 20:27; Admin Dose 0.4 MG; Start 10/29/18 at 21:00 Levalbuterol (Xopenex Neb) 1.25 mg Q3H RESP THERAPY PRN HHN Shortness of breath; Start 10/30/18 at 23:30 Ipratropium Ramsey (Atrovent 0.02% (Neb)) 0.5 mg Q3H RESP THERAPY PRN HHN SHORTNESS OF BREATH Last administered on 11/02/18 01:00; Admin Dose 0.5 MG; Start 10/30/18 at 23:30 Vancomycin HCl (Vanco Iv Per Pharmacy) VANCOMYCIN PER PHARMACY PER PROTOCOL XX ; Start 10/31/18 at 01:00 Cefepime HCl 50 ml @ 100 mls/hr Q12 IVPB Last administered on 11/04/18 08:28; Admin Dose 100 MLS/HR; Start 10/31/18 at 00:00 Acetylcysteine (Mucomyst) 2 ml Q8H RESP THERAPY NEB Last administered on 11/04 08:07; Admin Dose 2 ML; Start 10/31/18 at 16:00 Levalbuterol (Xopenex Neb) 0.63 mg Q8H RESP THERAPY HHN Last administered on 11/04/18 08:07; Admin Dose 0.63 MG; Start 10/31/18 at 16:00 Vancomycin HCl 250 ml @ 125 mls/hr Q36H IVPB Last administered on 11/04/18 01:33; Admin Dose 125 MLS/HR; Start 11/02/18 at 13:00 Clonazepam (Klonopin) 1 mg BID PO Last administered on 11/04/18 08:31; Admin Dose 1 MG; Start 11/03/18 at 21:00 Morphine Sulfate (Ms Contin (Er)) 15 mg BID PO Last administered on 11/04/18 08:32; Admin Dose 15 MG; Start 11/03/18 at 21:00 Dextrose 1,000 ml @ 50 mls/hr Q20H IV Last administered on 11/04/18 08:43; Admin Dose 50 MLS/HR; Start 11/04/18 at 08:30 HANNAH MACIEL MD Nov 04, 2018 15:14
[2018-11-04] MEDS: ATORVASTATIN 10 MG TAB PO SCH (20:16)
[2018-11-04] MEDS: TAMSULOSIN (SR) 0.4 MG CAP PO SCH (20:16)
[2018-11-05] VITALS (9 sets, daily range): BP systolic 119–156; BP diastolic 64–78; PULSE 71–91; RESP 18–20
[2018-11-05] MEDS: morphine 2 MG INJ IV PRN
[2018-11-05] MEDS: LEVALBUTEROL (NEB) 0.63 MG/3 ML AMP HHN SCH ×3 (00:33→16:00)
[2018-11-05] MEDS: ACETYLCYSTEINE 20% 4 ML VIAL NEB SCH ×3 (00:33→16:00)
[2018-11-05] MEDS: DEXTROSE 5% 1,000 ML IV SCH (06:22)
--- NOTE | 2018-11-05 06:57 | PN ---
DATE: 11/03/2018 SUBJECTIVE: The patient is stable, no events overnight. OBJECTIVE: VITAL SIGNS: Blood pressure is 120/67, pulse 87, respirations 20, temperature 97.9. HEENT: Head is normocephalic. NECK: Supple. HEART: Regular rate. LUNGS: Show diminished breath sounds at base. ABDOMEN: Soft, nontender to palpation. No rebound or guarding. EXTREMITIES: Negative for clubbing, cyanosis. No edema. DERMATOLOGIC: No rashes. MUSCULOSKELETAL: No joint effusion. NEUROLOGIC: No change in exam. MEDICATIONS: The patient's medications have been reviewed. LABORATORY DATA: Shows sodium 147, status 4.9, BUN 39, creatinine 2.51. ASSESSMENT AND PLAN: 1. Nonoliguric acute injury on top of chronic kidney disease with previous baseline creatinine of 2. 5 mg/dL. Etiology of acute kidney injury is secondary to hemodynamics. Renal function has slowly be en improving. Continue current treatment plan, supportive care, renally dose all medications. 2. Hypernatremia. The patient has a free water deficit approximately 1.5 liters. Will encourage fr ee water intake. If sodium levels do not improve, will consider starting patient on hypertonic fluid . 3. Anemia. Monitor hemoglobin and hematocrit levels. 4. Mineral bone disorder. Monitor calcium and phosphorus levels. 5. Acute hypoxemic ischemic respiratory failure. Etiology is secondary to pneumonia. Continue curr ent medical management. Continue high flow oxygen, wean off as tolerated. 6. Schizophrenia, behavioral disorder. Continue current treatment plan. Follow up with psychiatry. 7. History of benign prostatic hypertrophy. Continue Flomax. 8. History of hepatitis C. 9. Sinus bradycardia, resolved. 10. Hypomagnesemia. Continue to monitor and replete as needed. Dictated By: BELLE ART DO NR/NTS Conf#: [id number] DID#: [id number] CC: ANIYAH KING MD;*EndCC*
[2018-11-05] MEDS: CHOLECALCIFEROL 1,000 UNIT TAB PO SCH (08:36)
[2018-11-05] MEDS: CEFEPIME 1GM/50 ML (PMX) 50 ML IVPB SCH (08:36)
[2018-11-05] MEDS: SENNA/DOCUSATE NA (8.6MG/50MG) TAB PO SCH ×2 (08:37→21:17)
[2018-11-05] MEDS: GUAIFENESIN LA 600 MG TABSR PO SCH ×2 (08:37→21:17)
[2018-11-05] MEDS: RISPERIDONE 2 MG TAB PO SCH ×2 (08:37→21:32)
[2018-11-05] MEDS: GABAPENTIN 400 MG CAP PO SCH ×3 (08:38→21:17)
[2018-11-05] MEDS: AMLODIPINE 2.5 MG TAB PO SCH (08:40)
[2018-11-05] MEDS: MAGNESIUM OXIDE 400 MG TAB PO SCH ×2 (08:41→21:17)
[2018-11-05] MEDS: morphine (ER) 15 MG TAB PO SCH ×2 (08:58→21:17)
[2018-11-05] MEDS: TOPIRAMATE 25 MG TAB PO SCH ×2 (08:58→21:17)
[2018-11-05] MEDS: clonAZEPAM 0.5 MG TAB PO SCH ×2 (08:59→21:17)
[2018-11-05] MEDS: ROPINIROLE 0.25 MG TAB PO SCH ×3 (08:59→21:31)
[2018-11-05] MEDS: DULOXETINE 30 MG CAP DR PO SCH (08:59)
--- NOTE | 2018-11-05 09:44 | PN ---
DATE: 11/05/2018 SUBJECTIVE: The patient is stable. No events overnight. OBJECTIVE: VITAL SIGNS: Blood pressure is 144/70, respirations 20, pulse 86, temperature 97.3. HEENT: Head is normocephalic. NECK: Supple. HEART: Regular rate. LUNGS: Show diminished breath sounds at the base. ABDOMEN: Soft, nontender to palpation without rebound or guarding. EXTREMITIES: Negative for clubbing, cyanosis, no edema. DERMATOLOGIC: No rashes. MUSCULOSKELETAL: No joint effusion. NEUROLOGIC: No change in exam. MEDICATIONS: Reviewed. LABORATORY DATA: Pending and then reviewed. ASSESSMENT AND PLAN: 1. Nonoliguric acute kidney injury on top of chronic kidney disease with previous baseline creatinin e of around 2.5 mg/dL. Etiology of acute kidney injury is secondary to hemodynamics. Continue to mo nitor renal function closely. Continue current treatment plan. 2. Hypernatremia, etiology is likely due to decreased free water intake. The patient has free water deficit of 1.5 liters. The patient is started on dextrose D5 water. Continue to monitor. Follow u p sodium level. 3. Anemia. Monitor hemoglobin and hematocrit levels. 4. Mineral bone disorder. Monitor calcium and phosphorus levels. 5. Acute hypoxemic respiratory failure. Etiology is secondary to pneumonia. Continue current medic al management. Continue high flow oxygen. 6. Schizophrenia, bipolar disorder. Continue current treatment plan. 7. History of benign prostatic hypertrophy. Continue Flomax. 8. History of hepatitis C. 9. Sinus brachycardia, resolved. 10. Hypomagnesemia. Continue to monitor and replete as needed. Dictated By: BELLE ART DO NR/NTS Conf#: [id number] DID#: [id number] CC: HANNAH MACIEL MD; ANIYAH KING MD; MARY JO PARRY NP;*EndCC*
[2018-11-05] MEDS: VANCOMYCIN 1 GM 250 ML IVPB SCH (13:01)
[2018-11-05] MEDS: traMADol 50 MG TAB PO PRN (13:44)
--- NOTE | 2018-11-05 18:40 | PN ---
Date/Time of Note Date/Time of Note DATE: 11/05/18 TIME: 18:40 Assessment/Plan VTE Prophylaxis Risk score (from Nsg)>0 risk: 5 SCD applied (from Nsg): Yes Pharmacological prophylaxis: heparin Lines/Catheters IV Catheter Type (from Nrsg): Peripheral IV Urinary Cath still in place: No Assessment/Plan Hospital Course SUBJECTIVE: He has nonspecific complaints including dry mouth, pain in the sinuses. OBJECTIVE: Physical Exam General: Adequately build 68 year-old male lying in bed in no apparent distress. HEENT: Normocephalic, atraumatic. Eyes: Anicteric sclerae, conjunctivae clear. ENT: Nasal septum midline, oral mucosa is dry. Neck supple, no JVD noticed. Respiratory: Bilaterally diminished breath sounds. No use of accessory muscles of respiration. No adventitious breath sounds. Cardiovascular: S1, S2 heard. Regular rate and rhythm. Abdomen: Soft, nontender, and nondistended. Bowel sounds positive in all 4 quadrants. Genitourinary: Deferred. Extremities: No cyanosis, no clubbing, no edema. Peripheral pulses palpable. Neurologic: Cranial nerves II through XII grossly intact. The patient is awake, alert, and oriented. Labs & Vitals per chart ASSESSMENT & PLAN 68-year-old male with comorbidities including CVA, hypertension, hyperlipidemia, CKD, depression, and schizophrenia who was transferred from a alf facility because of complaint of headache and bradycardia. 1. Bradycardia. -Status post evaluation by cardiology. -Bradycardia secondary to hypomagnesemia. -Resolved with magnesium repletion. 2. Acute on chronic kidney disease. -Being followed by nephrology. -Use nephrotoxic drugs with caution. 3. Schizophrenia. -Continue mood stabilizers. 4. Prostate hypertrophy. -Continue Flomax. 5. Patchy bilateral pulmonary infiltrates. -Continue treatment for healthcare associated pneumonia. 6. Dyslipidemia. -Continue statins. 7. Hypertension. -Continue antihypertensives. 8. Normocytic, normochromic anemia. -Unknown etiology. -Continue to monitor H&H. 9. Chronic sinusitis. -Stable. 10. Failure to thrive. -PT evaluation. 11. Fluids, electrolytes, and nutrition. -Renal diet. 12. DVT prophylaxis -Subcutaneous heparin. 13. Plan. -Continue antimicrobials. -Await clinical improvement. -Transfer to [facility] floor. The patient was seen in collaboration with Dr. Zaman. Result Diagram: 11/04/18 0605 11/05/18 1048 Results 24hrs Laboratory Tests Test 11/05/18 10:48 Sodium Level 142 Potassium Level 4.3 Chloride Level 106 Carbon Dioxide Level 28 Anion Gap 8 Blood Urea Nitrogen 38 H Creatinine 2.42 H Est Glomerular Filtrat Rate mL/min 27 L Glucose Level 121 Calcium Level 9.3 Phosphorus Level 4.8 Magnesium Level 2.1 Exam/Review of Systems Exam Vitals Vital Signs Date Temp Pulse Resp B/P (MAP) Pulse Ox O2 O2 Flow FiO2 Time Delivery Rate 11/05/18 3.0 17:51 11/05/18 88 16:12 11/05/18 98.2 20 155/75 98 15:47 (101) 11/05/18 Nasal 10:07 Cannula 11/03/18 50 00:01 Intake and Output 11/04/18 11/04/18 11/05/18 1515:00 23:00 07:00 IntakeIntake Total 50 ml 2150 ml 975 ml OutputOutput Total 2000 ml 2100 ml BalanceBalance 50 ml 150 ml -1125 ml Results Results 24hrs Laboratory Tests Test 11/05/18 10:48 Sodium Level 142 Potassium Level 4.3 Chloride Level 106 Carbon Dioxide Level 28 Anion Gap 8 Blood Urea Nitrogen 38 H Creatinine 2.42 H Est Glomerular Filtrat Rate mL/min 27 L Glucose Level 121 Calcium Level 9.3 Phosphorus Level 4.8 Magnesium Level 2.1 Medications Medication Current Medications IV Flush (NS 3 ml) 3 ml PER PROTOCOL IV ; Start 10/27/18 at 00:00 Ondansetron HCl (Zofran Tab) 4 mg Q6H PRN PO NAUSEA/VOMITING; Start 10/27/18 at 00:00 Acetaminophen (Tylenol Tab) 650 mg Q6H PRN PO .PAIN 1-3 OR TEMP Last administered on 10/29/18at 08:42; Admin Dose 650 MG; Start 10/27/18 at 00:00 Docusate Sodium (Colace) 100 mg Q12H PRN PO .CONSTIPATION; Start 10/27/18 at 00:00 Bisacodyl (Dulcolax) 5 mg DAILY PRN PO .CONSTIPATION Last administered on 11/02/18at 06:10; Admin Dose 5 MG; Start 10/27/18 at 00:00 Tramadol HCl (Ultram) 50 mg Q6H PRN PO MODERATE PAIN LEVEL 4-6 Last administered on 11/05/18 13:44; Admin Dose 50 MG; Start 10/27/18 at 03:30 Hydralazine HCl (Apresoline) 10 mg Q4H PRN IV HYPERTENSION Last administered on 10/27/18 05:07; Admin Dose 10 MG; Start 10/27/18 at 05:00 Amlodipine Besylate (Norvasc) 5 mg DAILY PO Last administered on 11/05/18 08:40; Admin Dose 5 MG; Start 10/27/18 at 09:00 Cholecalciferol (Vitamin D) 1,000 unit DAILY PO Last administered on 11/05/18 08:36; Admin Dose 1,000 UNIT; Start 10/27/18 at 09:00 Duloxetine HCl (Cymbalta) 120 mg DAILY PO Last administered on 11/05/18 08:59; Admin Dose 120 MG; Start 10/27/18 at 09:00 Risperidone (Risperdal) 2 mg BID PO Last administered on 11/05/18 08:37; Admin Dose 2 MG; Start 10/27/18 at 09:00 Ropinirole HCl (Requip) 0.25 mg TID PO Last administered on 11/05/18 13:01; Admin Dose 0.25 MG; Start 10/27/18 at 10:30 Atorvastatin Calcium (Lipitor) 10 mg DAILY@21 PO Last administered on 11/04/18 20:16; Admin Dose 10 MG; Start 10/27/18 at 21:00 Senna/Docusate Sodium (Senokot-S) 1 tab BID PO Last administered on 11/05/18 08:37; Admin Dose 1 TAB; Start 10/27/18 at 21:00 Gabapentin (Neurontin) 400 mg TID PO Last administered on 11/05/18 13:01; Admin Dose 400 MG; Start 10/27/18 at 13:00 Morphine Sulfate (morphine) 2 mg Q2H PRN IV SEVERE PAIN LEVEL 7-10 Last administered on 11/05/18 00:00; Admin Dose 2 MG; Start 10/27/18 at 18:30 Topiramate (Topamax) 25 mg BID PO Last administered on 11/05/18 08:58; Admin Dose 25 MG; Start 10/28/18 at 11:00 Guaifenesin (Mucinex) 600 mg BID PO Last administered on 11/05/18 08:37; Admin Dose 600 MG; Start 10/28/18 at 14:00 Magnesium Oxide (Mag-Ox 400) 400 mg BID PO Last administered on 11/05/18 08:41; Admin Dose 400 MG; Start 10/29/18 at 21:00 Tamsulosin HCl (Flomax) 0.4 mg HS PO Last administered on 11/04/18 20:16; Admin Dose 0.4 MG; Start 10/29/18 at 21:00 Levalbuterol (Xopenex Neb) 1.25 mg Q3H RESP THERAPY PRN HHN Shortness of breath; Start 10/30/18 at 23:30 Ipratropium Jud (Atrovent 0.02% (Neb)) 0.5 mg Q3H RESP THERAPY PRN HHN SHORTNESS OF BREATH Last administered on 11/02/18 01:00; Admin Dose 0.5 MG; Start 10/30/18 at 23:30 Vancomycin HCl (Vanco Iv Per Pharmacy) VANCOMYCIN PER PHARMACY PER PROTOCOL XX ; Start 10/31/18 at 01:00 Acetylcysteine (Mucomyst) 2 ml Q8H RESP THERAPY NEB Last administered on 11/05/18 09:57; Admin Dose 2 ML; Start 10/31/18 at 16:00 Levalbuterol (Xopenex Neb) 0.63 mg Q8H RESP THERAPY HHN Last administered on 11/05/18 09:54; Admin Dose 0.63 MG; Start 10/31/18 at 16:00 Vancomycin HCl 250 ml @ 125 mls/hr Q36H IVPB Last administered on 11/05/18 13:01; Admin Dose 125 MLS/HR; Start 11/02/18 at 13:00 Clonazepam (Klonopin) 1 mg BID PO Last administered on 11/05/18 08:59; Admin Dose 1 MG; Start 11/03/18 at 21:00 Morphine Sulfate (Ms Contin (Er)) 15 mg BID PO Last administered on 11/05/18 08:58; Admin Dose 15 MG; Start 11/03/18 at 21:00 Dextrose 1,000 ml @ 50 mls/hr Q20H IV Last administered on 4/29/19at 06:22; Admin Dose 50 MLS/HR; Start 11/04/18 at 08:30 Cefepime HCl 50 ml @ 100 mls/hr Q24H IVPB ; Start 11/06/18 at 09:00 BELEN DIAZ NP Nov 05, 2018 18:40
[2018-11-05] MEDS: ATORVASTATIN 10 MG TAB PO SCH (21:17)
[2018-11-05] MEDS: TAMSULOSIN (SR) 0.4 MG CAP PO SCH (21:17)
[2018-11-06] MEDS: ACETYLCYSTEINE 20% 4 ML VIAL NEB SCH ×3 (00:56→16:00)
[2018-11-06] MEDS: LEVALBUTEROL (NEB) 0.63 MG/3 ML AMP HHN SCH ×3 (00:56→16:00)
[2018-11-06] MEDS: DEXTROSE 5% 1,000 ML IV SCH (00:57)
[2018-11-06 02:00] VITALS: BP 122/63; PULSE 81; RESP 18
[2018-11-06] MEDS: BISACODYL (EC) 5 MG TAB PO PRN (05:39)
[2018-11-06 07:52] VITALS: BP 125/70; PULSE 84; RESP 18
[2018-11-06] MEDS: RISPERIDONE 2 MG TAB PO SCH ×2 (08:23→20:48)
[2018-11-06] MEDS: CHOLECALCIFEROL 1,000 UNIT TAB PO SCH (08:24)
[2018-11-06] MEDS: morphine (ER) 15 MG TAB PO SCH ×2 (08:24→20:48)
[2018-11-06] MEDS: clonAZEPAM 0.5 MG TAB PO SCH ×2 (08:24→20:48)
[2018-11-06] MEDS: GABAPENTIN 400 MG CAP PO SCH ×3 (08:24→20:47)
[2018-11-06] MEDS: GUAIFENESIN LA 600 MG TABSR PO SCH ×2 (08:24→20:48)
[2018-11-06] MEDS: ROPINIROLE 0.25 MG TAB PO SCH ×3 (08:24→20:48)
[2018-11-06] MEDS: MAGNESIUM OXIDE 400 MG TAB PO SCH ×2 (08:24→20:48)
[2018-11-06] MEDS: SENNA/DOCUSATE NA (8.6MG/50MG) TAB PO SCH ×2 (08:24→20:48)
[2018-11-06] MEDS: TOPIRAMATE 25 MG TAB PO SCH ×2 (08:24→20:48)
[2018-11-06] MEDS: DULOXETINE 30 MG CAP DR PO SCH (08:24)
[2018-11-06] MEDS: AMLODIPINE 2.5 MG TAB PO SCH (08:25)
[2018-11-06] MEDS: CEFEPIME 1GM/50 ML (PMX) 50 ML IVPB SCH (08:25)
--- NOTE | 2018-11-06 09:18 | PN ---
DATE: 11/06/2018 SUBJECTIVE: The patient is stable, no events overnight. OBJECTIVE: VITAL SIGNS: Blood pressure is 125/70, pulse 89, respirations 20, temperature 97.6. HEENT: Head is normocephalic. NECK: Supple. HEART: Regular rate. LUNGS: Show diminished breath sounds at the base. ABDOMEN: Soft, nontender to palpation without rebound or guarding. EXTREMITIES: Negative for clubbing, cyanosis, no edema. DERMATOLOGIC: No rashes. MUSCULOSKELETAL: No joint effusion. NEUROLOGIC: No change in exam. MEDICATIONS: Reviewed. LABORATORY DATA: Reviewed. ASSESSMENT AND PLAN: 1. Nonoliguric acute kidney injury on top of chronic kidney disease with previous baseline creatinin e of around 2.5 mg/dL. Etiology of acute kidney injury is secondary to hemodynamics. Renal function is nearing baseline. Continue current treatment plan, supportive care, renally dose all medicines. 2. Hypernatremia, etiology is secondary to insensible losses and poor oral intake. The patient's so dium levels have improved. We will discontinue hypertonic fluid. Continue to encourage free water i ntake. 3. Anemia. Continue to monitor hemoglobin and hematocrit levels. 4. Mineral bone disorder, monitor calcium and phosphorus levels. 5. Acute hypoxemic respiratory failure, etiology is secondary to pneumonia. The patient is clinical ly improving. Continue to monitor. 6. Schizophrenia, bipolar disorder. Continue current treatment plan. 7. Benign prostatic hypertrophy. Continue Flomax. 8. History of hepatitis C. 9. Sinus bradycardia, resolved. 10. Hypomagnesemia. Continue to monitor and replete as needed. Dictated By: BELLE ART DO NR/DAV Conf#: [id number] DID#: [id number] CC: HANNAH MACIEL MD; MARY JO PARRY NP; ANIYAH KING MD;*EndCC*
[2018-11-06 14:12] VITALS: BP 113/63; PULSE 76; RESP 18
--- NOTE | 2018-11-06 14:31 | PN ---
Date/Time of Note Date/Time of Note DATE: 11/06/18 TIME: 14:30 Assessment/Plan VTE Prophylaxis Risk score (from Nsg)>0 risk: 6 SCD applied (from Nsg): Yes Pharmacological prophylaxis: LMWH Lines/Catheters IV Catheter Type (from Nrsg): Peripheral IV Urinary Cath still in place: No Assessment/Plan Hospital Course SUBJECTIVE: Denies any pain. Constipated. OBJECTIVE: Physical Exam General: Adequately build 68 year-old male lying in bed in no apparent distress. HEENT: Normocephalic, atraumatic. Eyes: Anicteric sclerae, conjunctivae clear. ENT: Nasal septum midline, oral mucosa is dry. Neck supple, no JVD noticed. Respiratory: Bilaterally diminished breath sounds. No use of accessory muscles of respiration. No adventitious breath sounds. Cardiovascular: S1, S2 heard. Regular rate and rhythm. Abdomen: Soft, nontender, and nondistended. Bowel sounds positive in all 4 quadrants. Genitourinary: Deferred. Extremities: No cyanosis, no clubbing, no edema. Peripheral pulses palpable. Neurologic: Cranial nerves II through XII grossly intact. The patient is awake, alert, and oriented. Labs & Vitals per chart ASSESSMENT & PLAN 68-year-old male with comorbidities including CVA, hypertension, hyperlipidemia, CKD, depression, and schizophrenia who was transferred from a [place] [facility] facility because of complaint of headache and bradycardia. 1. Bradycardia. -Status post evaluation by cardiology. -Bradycardia secondary to hypomagnesemia. -Resolved with magnesium repletion. 2. Acute on chronic kidney disease. -Being followed by nephrology. -Use nephrotoxic drugs with caution. 3. Schizophrenia. -Continue mood stabilizers. 4. Prostate hypertrophy. -Continue Flomax. 5. Patchy bilateral pulmonary infiltrates. -Continue treatment for healthcare associated pneumonia. 6. Dyslipidemia. -Continue statins. 7. Hypertension. -Continue antihypertensives. 8. Normocytic, normochromic anemia. -Unknown etiology. -Continue to monitor H&H. 9. Chronic sinusitis. -Stable. 10. Failure to thrive. -PT evaluation. 11. Fluids, electrolytes, and nutrition. -Renal diet. 12. DVT prophylaxis -Subcutaneous heparin. 13. Plan. -Continue antimicrobials. -Await clinical improvement. -Transfer to [facility] once clinically stable . The patient was seen in collaboration with Dr. Zaman. Result Diagram: 11/06/18 1352 11/05/18 1048 Results 24hrs Laboratory Tests Test 11/06/18 13:52 White Blood Count 4.6 #L Red Blood Count 3.52 L Hemoglobin 11.2 L Hematocrit 33.5 L Mean Corpuscular Volume 95.2 Mean Corpuscular Hemoglobin 31.8 Mean Corpuscular Hemoglobin Concent 33.4 Red Cell Distribution Width 12.2 Platelet Count 133 L Mean Platelet Volume 10.0 Immature Granulocytes % 1.500 H Neutrophils % 49.4 Lymphocytes % 28.9 Monocytes % 13.7 H Eosinophils % 5.6 Basophils % 0.9 Nucleated Red Blood Cells % 0.0 Immature Granulocytes # 0.070 H Neutrophils # 2.3 Lymphocytes # 1.3 Monocytes # 0.6 Eosinophils # 0.3 Basophils # 0.0 Nucleated Red Blood Cells # 0.0 Sodium Level 142 Potassium Level 4.5 Chloride Level 106 Carbon Dioxide Level 28 Anion Gap 8 Blood Urea Nitrogen 39 H Creatinine 2.49 H Est Glomerular Filtrat Rate mL/min 26 L Glucose Level 101 Calcium Level 9.2 Phosphorus Level 5.5 H Magnesium Level 2.4 Exam/Review of Systems Exam Vitals Vital Signs Date Temp Pulse Resp B/P (MAP) Pulse Ox O2 O2 Flow FiO2 Time Delivery Rate 11/06/18 97.9 76 18 113/63 95 14:12 (80) 11/06/18 Nasal 3.0 09:00 Cannula 11/06/18 21 00:56 Intake and Output 11/05/18 11/05/18 11/06/18 1414:59 22:59 06:59 IntakeIntake Total 1350 ml 300 ml OutputOutput Total 3400 ml BalanceBalance -2050 ml 300 ml Results Results 24hrs Laboratory Tests Test 11/06/18 13:52 White Blood Count 4.6 #L Red Blood Count 3.52 L Hemoglobin 11.2 L Hematocrit 33.5 L Mean Corpuscular Volume 95.2 Mean Corpuscular Hemoglobin 31.8 Mean Corpuscular Hemoglobin Concent 33.4 Red Cell Distribution Width 12.2 Platelet Count 133 L Mean Platelet Volume 10.0 Immature Granulocytes % 1.500 H Neutrophils % 49.4 Lymphocytes % 28.9 Monocytes % 13.7 H Eosinophils % 5.6 Basophils % 0.9 Nucleated Red Blood Cells % 0.0 Immature Granulocytes # 0.070 H Neutrophils # 2.3 Lymphocytes # 1.3 Monocytes # 0.6 Eosinophils # 0.3 Basophils # 0.0 Nucleated Red Blood Cells # 0.0 Sodium Level 142 Potassium Level 4.5 Chloride Level 106 Carbon Dioxide Level 28 Anion Gap 8 Blood Urea Nitrogen 39 H Creatinine 2.49 H Est Glomerular Filtrat Rate mL/min 26 L Glucose Level 101 Calcium Level 9.2 Phosphorus Level 5.5 H Magnesium Level 2.4 Medications Medication Current Medications IV Flush (NS 3 ml) 3 ml PER PROTOCOL IV ; Start 10/27/18 at 00:00 Ondansetron HCl (Zofran Tab) 4 mg Q6H PRN PO NAUSEA/VOMITING; Start 10/27/18 at 00:00 Acetaminophen (Tylenol Tab) 650 mg Q6H PRN PO .PAIN 1-3 OR TEMP Last administered on 10/29/18 08:42; Admin Dose 650 MG; Start 10/27/18 at 00:00 Docusate Sodium (Colace) 100 mg Q12H PRN PO .CONSTIPATION Last administered on 11/06/18 05:39; Admin Dose 100 MG; Start 10/27/18 at 00:00 Bisacodyl (Dulcolax) 5 mg DAILY PRN PO .CONSTIPATION Last administered on 11/06/18 05:39; Admin Dose 5 MG; Start 10/27/18 at 00:00 Tramadol HCl (Ultram) 50 mg Q6H PRN PO MODERATE PAIN LEVEL 4-6 Last administered on 11/05/18 13:44; Admin Dose 50 MG; Start 10/27/18 at 03:30 Hydralazine HCl (Apresoline) 10 mg Q4H PRN IV HYPERTENSION Last administered on 10/27/18 05:07; Admin Dose 10 MG; Start 10/27/18 at 05:00 Amlodipine Besylate (Norvasc) 5 mg DAILY PO Last administered on 11/06/18 08:25; Admin Dose 5 MG; Start 10/27/18 at 09:00 Cholecalciferol (Vitamin D) 1,000 unit DAILY PO Last administered on 11/06/18 08:24; Admin Dose 1,000 UNIT; Start 10/27/18 at 09:00 Duloxetine HCl (Cymbalta) 120 mg DAILY PO Last administered on 11/06/18 08:24; Admin Dose 120 MG; Start 10/27/18 at 09:00 Risperidone (Risperdal) 2 mg BID PO Last administered on 11/06/18 08:23; Admin Dose 2 MG; Start 10/27/18 at 09:00 Ropinirole HCl (Requip) 0.25 mg TID PO Last administered on 11/06/18 08:24; Admin Dose 0.25 MG; Start 10/27/18 at 10:30 Atorvastatin Calcium (Lipitor) 10 mg DAILY@21 PO Last administered on 11/05/18 21:17; Admin Dose 10 MG; Start 10/27/18 at 21:00 Senna/Docusate Sodium (Senokot-S) 1 tab BID PO Last administered on 11/06/18 08:24; Admin Dose 1 TAB; Start 10/27/18 at 21:00 Gabapentin (Neurontin) 400 mg TID PO Last administered on 11/06/18 08:24; Admin Dose 400 MG; Start 10/27/18 at 13:00 Morphine Sulfate (morphine) 2 mg Q2H PRN IV SEVERE PAIN LEVEL 7-10 Last administered on 11/05/18 00:00; Admin Dose 2 MG; Start 10/27/18 at 18:30 Topiramate (Topamax) 25 mg BID PO Last administered on 11/06/18 08:24; Admin Dose 25 MG; Start 10/28/18 at 11:00 Guaifenesin (Mucinex) 600 mg BID PO Last administered on 11/06/18 08:24; Admin Dose 600 MG; Start 10/28/18 at 14:00 Magnesium Oxide (Mag-Ox 400) 400 mg BID PO Last administered on 11/06/18 08:24; Admin Dose 400 MG; Start 10/29/18 at 21:00 Tamsulosin HCl (Flomax) 0.4 mg HS PO Last administered on 11/05/18 21:17; Admin Dose 0.4 MG; Start 10/29/18 at 21:00 Levalbuterol (Xopenex Neb) 1.25 mg Q3H RESP THERAPY PRN HHN Shortness of br eath; Start 10/30/18 at 23:30 Ipratropium [place] (Atrovent 0.02% (Neb)) 0.5 mg Q3H RESP THERAPY PRN HHN SHORTNESS OF BREATH Last administered on 11/02/18 01:00; Admin Dose 0.5 MG; Start 10/30/18 at 23:30 Vancomycin HCl (Vanco Iv Per Pharmacy) VANCOMYCIN PER PHARMACY PER PROTOCOL XX ; Start 10/31/18 at 01:00 Acetylcysteine (Mucomyst) 2 ml Q8H RESP THERAPY NEB Last administered on 11/06/18 08:35; Admin Dose 2 ML; Start 10/31/18 at 16:00 Levalbuterol (Xopenex Neb) 0.63 mg Q8H RESP THERAPY HHN Last administered on 11/06/18 08:35; Admin Dose 0.63 MG; Start 10/31/18 at 16:00 Vancomycin HCl 250 ml @ 125 mls/hr Q36H IVPB Last administered on 11/05/18 13:01; Admin Dose 125 MLS/HR; Start 11/02/18 at 13:00 Clonazepam (Klonopin) 1 mg BID PO Last administered on 11/06/18 08:24; Admin Dose 1 MG; Start 11/03/18 at 21:00 Morphine Sulfate (Ms Contin (Er)) 15 mg BID PO Last administered on 11/06/18 08:24; Admin Dose 15 MG; Start 11/03/18 at 21:00 Cefepime HCl 50 ml @ 100 mls/hr Q24H IVPB Last administered on 11/06/18 08:25; Admin Dose 100 MLS/HR; Start 11/06/18 at 09:00 Miscellaneous Information (*Rx Drug Level Order Reminder*) VANCO TROUGH ON 0... 0000 ONCE XX ; Start 11/07/18 at 00:00; Stop 11/07/18 at 00:01 BELEN DIAZ NP Nov 06, 2018 14:31
[2018-11-06] MEDS ORDERED: LACTULOSE 30ML CUP PO ONE (15:30)
[2018-11-06] MEDS ORDERED: LACTULOSE ENEMA 1,000 ML BTL PR ONE (17:00)
[2018-11-06 20:00] VITALS: BP 127/62; PULSE 87; RESP 18
[2018-11-06] MEDS: ATORVASTATIN 10 MG TAB PO SCH (20:47)
[2018-11-06] MEDS: TAMSULOSIN (SR) 0.4 MG CAP PO SCH (20:48)
[2018-11-07] MEDS ORDERED: LORAZEPAM 1 MG TAB PO ONE (00:30)
[2018-11-07] MEDS: LEVALBUTEROL (NEB) 0.63 MG/3 ML AMP HHN SCH ×3 (01:02→16:00)
[2018-11-07] MEDS: ACETYLCYSTEINE 20% 4 ML VIAL NEB SCH ×3 (01:03→16:00)
[2018-11-07 02:29] VITALS: BP 125/60; PULSE 84; RESP 18
[2018-11-07] MEDS: VANCOMYCIN 1 GM 250 ML IVPB SCH (03:08)
--- NOTE | 2018-11-07 05:44 | PN ---
Date/Time of Note Date/Time of Note DATE: 11/07/18 TIME: 05:44 Assessment/Plan VTE Prophylaxis Risk score (from Ns)>0 risk: 6 SCD applied (from Nsg): Yes Pharmacological prophylaxis: heparin Lines/Catheters IV Catheter Type (from Nrsg): Peripheral IV Urinary Cath still in place: No Assessment/Plan Hospital Course SUBJECTIVE: Patient is somnolent. OBJECTIVE: Physical Exam General: Adequately build 68 year-old male lying in bed in no apparent distress. HEENT: Normocephalic, atraumatic. Eyes: Anicteric sclerae, conjunctivae clear. ENT: Nasal septum midline, oral mucosa is dry. Neck supple, no JVD noticed. Respiratory: Bilaterally diminished breath sounds. No use of accessory muscles of respiration. No adventitious breath sounds. Cardiovascular: S1, S2 heard. Regular rate and rhythm. Abdomen: Soft, nontender, and nondistended. Bowel sounds positive in all 4 quadrants. Genitourinary: Deferred. Extremities: No cyanosis, no clubbing, no edema. Peripheral pulses palpable. Neurologic: Patient is somnolent. Labs & Vitals per chart ASSESSMENT & PLAN 68-year-old male with comorbidities including CVA, hypertension, hyperlipidemia, CKD, depression, and schizophrenia who was transferred from a [facility] facility because of complaint of headache and bradycardia. 1. Bradycardia. -Status post evaluation by cardiology. -Bradycardia secondary to hypomagnesemia. -Resolved with magnesium repletion. 2. Acute on chronic kidney disease. -Being followed by nephrology. -Use nephrotoxic drugs with caution. 3. Schizophrenia. -Continue mood stabilizers. 4. Prostate hypertrophy. -Continue Flomax. 5. Patchy bilateral pulmonary infiltrates. -Continue treatment for healthcare associated pneumonia. 6. Dyslipidemia. -Continue statins. 7. Hypertension. -Continue antihypertensives. 8. Normocytic, normochromic anemia. -Unknown etiology. -Continue to monitor H&H. 9. Chronic sinusitis. -Stable. 10. Failure to thrive. -PT evaluation. 11. Fluids, electrolytes, and nutrition. -Renal diet. 12. DVT prophylaxis -Subcutaneous heparin. 13. Plan. -Continue antimicrobials. -Switch antimicrobials to oral. -Enema for constipation. -Transfer to [facility] facility once clinically stable . The patient was seen in collaboration with Dr. Zaman. Result Diagram: 11/06/18 1352 11/06/18 1352 Results 24hrs Laboratory Tests Test 11/06/18 13:52 11/07/18 00:20 White Blood Count 4.6 #L Red Blood Count 3.52 L Hemoglobin 11.2 L Hematocrit 33.5 L Mean Corpuscular Volume 95.2 Mean Corpuscular Hemoglobin 31.8 Mean Corpuscular Hemoglobin Concent 33.4 Red Cell Distribution Width 12.2 Platelet Count 133 L Mean Platelet Volume 10.0 Immature Granulocytes % 1.500 H Neutrophils % 49.4 Lymphocytes % 28.9 Monocytes % 13.7 H Eosinophils % 5.6 Basophils % 0.9 Nucleated Red Blood Cells % 0.0 Immature Granulocytes # 0.070 H Neutrophils # 2.3 Lymphocytes # 1.3 Monocytes # 0.6 Eosinophils # 0.3 Basophils # 0.0 Nucleated Red Blood Cells # 0.0 Sodium Level 142 Potassium Level 4.5 Chloride Level 106 Carbon Dioxide Level 28 Anion Gap 8 Blood Urea Nitrogen 39 H Creatinine 2.49 H Est Glomerular Filtrat Rate mL/min 26 L Glucose Level 101 Calcium Level 9.2 Phosphorus Level 5.5 H Magnesium Level 2.4 Procalcitonin 0.49 H Vancomycin Level Trough 12.5 Exam/Review of Systems Exam Vitals Vital Signs Date Temp Pulse Resp B/P (MAP) Pulse Ox O2 O2 Flow FiO2 Time Delivery Rate 11/07/18 97.8 84 18 125/60 97 02:29 (81) 11/07/18 4.0 01:03 11/06/18 Nasal 21:00 Cannula 11/06/18 21 00:56 Intake and Output 11/06/18 11/06/18 11/07/18 1515:00 23:00 07:00 IntakeIntake Total 550 ml 240 ml 1300 ml OutputOutput Total 1600 ml 1100 ml BalanceBalance 550 ml -1360 ml 200 ml Results Results 24hrs Laboratory Tests Test 11/06/18 13:52 11/07/18 00:20 White Blood Count 4.6 #L Red Blood Count 3.52 L Hemoglobin 11.2 L Hematocrit 33.5 L Mean Corpuscular Volume 95.2 Mean Corpuscular Hemoglobin 31.8 Mean Corpuscular Hemoglobin Concent 33.4 Red Cell Distribution Width 12.2 Platelet Count 133 L Mean Platelet Volume 10.0 Immature Granulocytes % 1.500 H Neutrophils % 49.4 Lymphocytes % 28.9 Monocytes % 13.7 H Eosinophils % 5.6 Basophils % 0.9 Nucleated Red Blood Cells % 0.0 Immature Granulocytes # 0.070 H Neutrophils # 2.3 Lymphocytes # 1.3 Monocytes # 0.6 Eosinophils # 0.3 Basophils # 0.0 Nucleated Red Blood Cells # 0.0 Sodium Level 142 Potassium Level 4.5 Chloride Level 106 Carbon Dioxide Level 28 Anion Gap 8 Blood Urea Nitrogen 39 H Creatinine 2.49 H Est Glomerular Filtrat Rate mL/min 26 L Glucose Level 101 Calcium Level 9.2 Phosphorus Level 5.5 H Magnesium Level 2.4 Procalcitonin 0.49 H Vancomycin Level Trough 12.5 Medications Medication Current Medications IV Flush (NS 3 ml) 3 ml PER PROTOCOL IV ; Start 10/27/18 at 00:00 Ondansetron HCl (Zofran Tab) 4 mg Q6H PRN PO NAUSEA/VOMITING; Start 10/27/18 at 00:00 Acetaminophen (Tylenol Tab) 650 mg Q6H PRN PO .PAIN 1-3 OR TEMP Last administered on 10/29/18 08:42; Admin Dose 650 MG; Start 10/27/18 at 00:00 Docusate Sodium (Colace) 100 mg Q12H PRN PO .CONSTIPATION Last administered on 11/06/18 05:39; Admin Dose 100 MG; Start 10/27/18 at 00:00 Bisacodyl (Dulcolax) 5 mg DAILY PRN PO .CONSTIPATION Last administered on 11/06/18 05:39; Admin Dose 5 MG; Start 10/27/18 at 00:00 Tramadol HCl (Ultram) 50 mg Q6H PRN PO MODERATE PAIN LEVEL 4-6 Last administered on 11/05/18 13:44; Admin Dose 50 MG; Start 10/27/18 at 03:30 Hydralazine HCl (Apresoline) 10 mg Q4H PRN IV HYPERTENSION Last administered on 10/27/18 05:07; Admin Dose 10 MG; Start 10/27/18 at 05:00 Amlodipine Besylate (Norvasc) 5 mg DAILY PO Last administered on 11/06/18 08:25; Admin Dose 5 MG; Start 10/27/18 at 09:00 Cholecalciferol (Vitamin D) 1,000 unit DAILY PO Last administered on 11/06/18 08:24; Admin Dose 1,000 UNIT; Start 10/27/18 at 09:00 Duloxetine HCl (Cymbalta) 120 mg DAILY PO Last administered on 11/06/18 08:24; Admin Dose 120 MG; Start 10/27/18 at 09:00 Risperidone (Risperdal) 2 mg BID PO Last administered on 11/06/18 20:48; Admin Dose 2 MG; Start 10/27/18 at 09:00 Ropinirole HCl (Requip) 0.25 mg TID PO Last administered on 11/06/18 20:48; Admin Dose 0.25 MG; Start 10/27/18 at 10:30 Atorvastatin Calcium (Lipitor) 10 mg DAILY@21 PO Last administered on 11/06/18 20:47; Admin Dose 10 MG; Start 10/27/18 at 21:00 Senna/Docusate Sodium (Senokot-S) 1 tab BID PO Last administered on 11/06/18 20:48; Admin Dose 1 TAB; Start 10/27/18 at 21:00 Gabapentin (Neurontin) 400 mg TID PO Last administered on 11/06/18 20:47; Admin Dose 400 MG; Start 10/27/18 at 13:00 Morphine Sulfate (morphine) 2 mg Q2H PRN IV SEVERE PAIN LEVEL 7-10 Last administered on 11/05/18 00:00; Admin Dose 2 MG; Start 10/27/18 at 18:30 Topiramate (Topamax) 25 mg BID PO Last administered on 11/06/18 20:48; Admin Dose 25 MG; Start 10/28/18 at 11:00 Guaifenesin (Mucinex) 600 mg BID PO Last administered on 11/06/18 20:48; Admin Dose 600 MG; Start 10/28/18 at 14:00 Magnesium Oxide (Mag-Ox 400) 400 mg BID PO Last administered on 11/06/18 20:48; Admin Dose 400 MG; Start 10/29/18 at 21:00 Tamsulosin HCl (Flomax) 0.4 mg HS PO Last administered on 11/06/18 20:48; Admin Dose 0.4 MG; Start 10/29/18 at 21:00 Levalbuterol (Xopenex Neb) 1.25 mg Q3H RESP THERAPY PRN HHN Shortness of breath; Start 10/30/18 at 23:30 Ipratropium [place] (Atrovent 0.02% (Neb)) 0.5 mg Q3H RESP THERAPY PRN HHN SHORTNESS OF BREATH Last administered on 11/02/18 01:00; Admin Dose 0.5 MG; Start 10/30/18 at 23:30 Vancomycin HCl (Vanco Iv Per Pharmacy) VANCOMYCIN PER PHARMACY PER PROTOCOL XX ; Start 10/31/18 at 01:00 Acetylcysteine (Mucomyst) 2 ml Q8H RESP THERAPY NEB Last administered on 11/06/18 08:35; Admin Dose 2 ML; Start 10/31/18 at 16:00 Levalbuterol (Xopenex Neb) 0.63 mg Q8H RESP THERAPY HHN Last administered on 11/06/18 08:35; Admin Dose 0.63 MG; Start 10/31/18 at 16:00 Vancomycin HCl 250 ml @ 125 mls/hr Q36H IVPB Last administered on 11/07/18 03:08; Admin Dose 125 MLS/HR; Start 11/02/18 at 13:00 Clonazepam (Klonopin) 1 mg BID PO Last administered on 11/06/18 20:48; Admin Dose 1 MG; Start 11/03/18 at 21:00 Morphine Sulfate (Ms Contin (Er)) 15 mg BID PO Last administered on 11/06/18 20:48; Admin Dose 15 MG; Start 11/03/18 at 21:00 Cefepime HCl 50 ml @ 100 mls/hr Q24H IVPB Last administered on 11/06/18 08:25; Admin Dose 100 MLS/HR; Start 11/06/18 at 09:00 BELEN DIAZ NP November 07, 2018 05:44
[2018-11-07 07:15] VITALS: BP 122/90; PULSE 78; RESP 18
[2018-11-07] MEDS: DULOXETINE 30 MG CAP DR PO SCH (08:28)
[2018-11-07] MEDS: clonAZEPAM 0.5 MG TAB PO SCH ×2 (08:29→20:16)
[2018-11-07] MEDS: GABAPENTIN 400 MG CAP PO SCH ×3 (08:29→20:17)
[2018-11-07] MEDS: CHOLECALCIFEROL 1,000 UNIT TAB PO SCH (08:29)
[2018-11-07] MEDS: morphine (ER) 15 MG TAB PO SCH ×2 (08:29→20:17)
[2018-11-07] MEDS: SENNA/DOCUSATE NA (8.6MG/50MG) TAB PO SCH ×2 (08:30→20:17)
[2018-11-07] MEDS: RISPERIDONE 2 MG TAB PO SCH ×2 (08:30→20:17)
[2018-11-07] MEDS: AMLODIPINE 2.5 MG TAB PO SCH (08:30)
[2018-11-07] MEDS: TOPIRAMATE 25 MG TAB PO SCH ×2 (08:30→20:17)
[2018-11-07] MEDS: GUAIFENESIN LA 600 MG TABSR PO SCH ×2 (08:30→20:17)
[2018-11-07] MEDS: MAGNESIUM OXIDE 400 MG TAB PO SCH ×2 (08:30→20:17)
[2018-11-07] MEDS: CEFEPIME 1GM/50 ML (PMX) 50 ML IVPB SCH (08:31)
[2018-11-07] MEDS: ROPINIROLE 0.25 MG TAB PO SCH ×3 (08:31→20:16)
--- NOTE | 2018-11-07 09:09 | PN ---
DATE: 11/07/2018 SUBJECTIVE: The patient is stable, no events overnight. OBJECTIVE: VITAL SIGNS: Blood pressure is 122/90, pulse 81, respirations 18, temperature 98.2. HEENT: Head is normocephalic. NECK: Supple. HEART: Regular rate. LUNGS: Show diminished breath sounds at the base. ABDOMEN: Soft, nontender to palpation without rebound or guarding. EXTREMITIES: Negative for clubbing, cyanosis, no edema. DERMATOLOGIC: No rashes. MUSCULOSKELETAL: No joint effusion. NEUROLOGIC: No change in exam. MEDICATIONS: Reviewed. LABORATORY DATA: Reviewed. ASSESSMENT AND PLAN: 1. Nonoliguric acute kidney injury on top of chronic kidney disease stage III/IV with a baseline cre atinine between around 2.5 mg/dL. Etiology of acute kidney injury is secondary to hemodynamics. The patient's renal function is at baseline. Continue current treatment plans, supportive care, renally dose all medicines. 2. Hypernatremia, improved. Continue to monitor. Continue to encourage free water intake. 3. Anemia. Monitor hemoglobin and hematocrit levels. 4. Mineral bone disorder. Monitor calcium and phosphorus levels. 5. Acute hypoxemic respiratory failure, etiology is secondary to pneumonia. The patient is clinical ly improving. Continue to monitor. 6. Schizophrenia, bipolar disorder. Continue medical management. 7. Benign prostatic hypertrophy. Continue Flomax. 8. History of hepatitis C. 9. Sinus bradycardia, resolved. 10. Hypomagnesemia. Continue to monitor and replete as needed. Dictated By: BELLE GHOSH/NTS Conf#: [id number] DID#: [id number] CC: MARY JO PARRY NP; HANNAH MACIEL MD; ANIYAH KING MD;*EndCC*
[2018-11-07 14:35] VITALS: BP 105/63; PULSE 66; RESP 16
[2018-11-07] MEDS ORDERED: LACTULOSE ENEMA 1,000 ML BTL PR ONE (15:30)
[2018-11-07] MEDS: LEVOFLOXACIN 750 MG TABLET PO SCH (18:38)
[2018-11-07 20:00] VITALS: BP 108/54; PULSE 94; RESP 18
[2018-11-07] MEDS: TAMSULOSIN (SR) 0.4 MG CAP PO SCH (20:17)
[2018-11-07] MEDS: ATORVASTATIN 10 MG TAB PO SCH (20:17)
[2018-11-08] VITALS (10 sets, daily range): BP systolic 99–135; BP diastolic 53–69; PULSE 41–80; RESP 16–18
[2018-11-08] MEDS ORDERED: morphine 2 MG INJ IV STA (04:51)
[2018-11-08] MEDS: ACETYLCYSTEINE 20% 4 ML VIAL NEB SCH ×2 (08:00)
[2018-11-08] MEDS: LEVALBUTEROL (NEB) 0.63 MG/3 ML AMP HHN SCH ×4 (08:00→23:27)
[2018-11-08] MEDS: morphine (ER) 15 MG TAB PO SCH (09:00)
[2018-11-08] MEDS: DULOXETINE 30 MG CAP DR PO SCH (09:11)
[2018-11-08] MEDS: AMLODIPINE 2.5 MG TAB PO SCH (09:12)
[2018-11-08] MEDS: clonAZEPAM 0.5 MG TAB PO SCH ×2 (09:12→21:16)
[2018-11-08] MEDS: MAGNESIUM OXIDE 400 MG TAB PO SCH ×2 (09:12→21:06)
[2018-11-08] MEDS: CHOLECALCIFEROL 1,000 UNIT TAB PO SCH (09:12)
[2018-11-08] MEDS: SENNA/DOCUSATE NA (8.6MG/50MG) TAB PO SCH ×2 (09:13→21:06)
[2018-11-08] MEDS: RISPERIDONE 2 MG TAB PO SCH ×2 (09:13→21:05)
[2018-11-08] MEDS: traMADol 50 MG TAB PO PRN ×3 (09:13→23:21)
[2018-11-08] MEDS: ROPINIROLE 0.25 MG TAB PO SCH ×2 (09:13→12:23)
[2018-11-08] MEDS: GABAPENTIN 400 MG CAP PO SCH ×3 (09:13→21:06)
[2018-11-08] MEDS: GUAIFENESIN LA 600 MG TABSR PO SCH ×2 (09:14→21:06)
[2018-11-08] MEDS: TOPIRAMATE 25 MG TAB PO SCH ×2 (09:14→21:06)
--- NOTE | 2018-11-08 10:20 | PN ---
DATE: 11/08/2018 SUBJECTIVE: The patient is stable overnight, no acute events noted. No hemoptysis, hematemesis, hem atochezia. OBJECTIVE: VITAL SIGNS: Blood pressure is 135/60, respirations 16, pulse 44, temperature 98.1. HEENT: Head is normocephalic. NECK: Supple. HEART: Regular rate. LUNGS: Show diminished breath sounds at the base. ABDOMEN: Soft, nontender to palpation without rebound or guarding. EXTREMITIES: Negative for clubbing, cyanosis. Trace edema. DERMATOLOGIC: No rashes. MUSCULOSKELETAL: No joint effusion. NEUROLOGIC: No change in exam. MEDICATIONS: The patient's medications have been reviewed. LABORATORY DATA: Has been reviewed. IMAGING STUDIES: Have been reviewed. ASSESSMENT AND PLAN: 1. Nonoliguric acute kidney injury on top of chronic kidney disease stage IIIB/IV with a baseline cr eatinine around 2.5 mg/dL. Etiology of ILYA is secondary to hemodynamics. Renal function has returne d to baseline. Continue current plans, supportive care, renally dose all meds. 2. Hyponatremia, improved. Continue to encourage free water intake. 3. Anemia. Monitor hemoglobin and hematocrit levels. 4. Mineral bone disorder. Monitor calcium and phosphorus levels. 5. Acute hypoxemic respiratory failure, etiology secondary to pneumonia. The patient is clinically improving. Continue to monitor. 6. Schizophrenia, bipolar disorder. Continue current medical management. 7. Benign prostatic hypertrophy. Continue Flomax. 8. History of hepatitis C. 9. Sinus bradycardia, resolved. 10. Hypomagnesemia. Continue to monitor and replete. Dictated By: BELLE GHOSH/NTS Conf#: [id number] DID#: [id number] CC: MARY JO PARRY NP; ANIYAH KING MD; HANNAH MACIEL MD;*EndCC*
--- NOTE | 2018-11-08 12:33 | PN ---
Date/Time of Note Date/Time of Note DATE: 11/08/18 TIME: 12:29 Assessment/Plan VTE Prophylaxis Risk score (from Ns)>0 risk: 6 SCD applied (from Ns): Yes Pharmacological prophylaxis: heparin Lines/Catheters IV Catheter Type (from Nrs): Peripheral IV Urinary Cath still in place: No Assessment/Plan Hospital Course SUBJECTIVE: Patient was transferred to telemetry floor because the patient had episodes of bradycardia during the night. OBJECTIVE: Physical Exam General: Adequately build 68 year-old male lying in bed in no apparent distress. HEENT: Normocephalic, atraumatic. Eyes: Anicteric sclerae, conjunctivae clear. ENT: Nasal septum midline, oral mucosa is dry. Neck supple, no JVD noticed. Respiratory: Bilaterally diminished breath sounds. No use of accessory muscles of respiration. No adventitious breath sounds. Cardiovascular: S1, S2 heard. Regular rate and rhythm. Abdomen: Soft, nontender, and nondistended. Bowel sounds positive in all 4 quadrants. Genitourinary: Deferred. Extremities: No cyanosis, no clubbing, no edema. Peripheral pulses palpable. Neurologic: Patient is somnolent. Labs & Vitals per chart ASSESSMENT & PLAN 68-year-old male with comorbidities including CVA, hypertension, hyperlipidemia, CKD, depression, and schizophrenia who was transferred from a [facility] facility because of complaint of headache and bradycardia. 1. Bradycardia. -Status post evaluation by cardiology. -Bradycardia secondary to hypomagnesemia. -Resolved with magnesium repletion. -Started having bradycardia on 11/08/2018. -Discontinue drugs that can contribute towards bradycardia (DC MS Contin, Requip,etc.) 2. Acute on chronic kidney disease. -Being followed by nephrology. -Use nephrotoxic drugs with caution. 3. Schizophrenia. -Continue mood stabilizers. 4. Prostate hypertrophy. -Continue Flomax. 5. Patchy bilateral pulmonary infiltrates. -Continue treatment for healthcare associated pneumonia. -Switched to oral on 11/07/2018. 6. Dyslipidemia. -Continue statins. 7. Hypertension. -Continue antihypertensives. 8. Normocytic, normochromic anemia. -Unknown etiology. -Continue to monitor H&H. 9. Chronic sinusitis. -Stable. 10. Failure to thrive. -PT evaluation. 11. Fluids, electrolytes, and nutrition. -Renal diet. 12. DVT prophylaxis -Subcutaneous heparin. 13. Plan. -Continue antimicrobials. -Switch antimicrobials to oral. -DC all medicines that are contributing to bradycardia. -Continue telemetry monitoring. The patient was seen in collaboration with Dr. Zaman. Result Diagram: 11/08/18 0423 11/08/18 0423 Results 24hrs Laboratory Tests Test 11/08/18 04:23 11/08/18 04:31 White Blood Count 6.0 # Red Blood Count 3.69 L Hemoglobin 11.8 L Hematocrit 34.9 L Mean Corpuscular Volume 94.6 Mean Corpuscular Hemoglobin 32.0 Mean Corpuscular Hemoglobin Concent 33.8 Red Cell Distribution Width 11.9 Platelet Count 149 Mean Platelet Volume 9.9 Immature Granulocytes % 0.700 H Neutrophils % 65.7 Lymphocytes % 20.3 Monocytes % 10.4 Eosinophils % 2.2 Basophils % 0.7 Nucleated Red Blood Cells % 0.0 Immature Granulocytes # 0.040 H Neutrophils # 3.9 Lymphocytes # 1.2 Monocytes # 0.6 Eosinophils # 0.1 Basophils # 0.0 Nucleated Red Blood Cells # 0.0 Sodium Level 141 Potassium Level 4.8 Chloride Level 107 Carbon Dioxide Level 23 Anion Gap 11 Blood Urea Nitrogen 42 H Creatinine 2.71 H Est Glomerular Filtrat Rate mL/min 24 L Glucose Level 95 Calcium Level 9.3 Phosphorus Level 4.8 Magnesium Level 2.7 H Exam/Review of Systems Exam Vitals Vital Signs Date Temp Pulse Resp B/P (MAP) Pulse Ox O2 O2 Flow FiO2 Time Delivery Rate 11/08/18 98.3 75 17 106/66 95 Nasal 12:05 (79) Cannula 11/08/18 2.0 12:03 11/06/18 21 00:56 Intake and Output 11/07/18 11/07/18 11/08/18 1515:00 23:00 07:00 IntakeIntake Total 710 ml 420 ml 480 ml OutputOutput Total 600 ml 600 ml 400 ml BalanceBalance 110 ml -180 ml 80 ml Results Results 24hrs Laboratory Tests Test 11/08/18 04:23 11/08/18 04:31 White Blood Count 6.0 # Red Blood Count 3.69 L Hemoglobin 11.8 L Hematocrit 34.9 L Mean Corpuscular Volume 94.6 Mean Corpuscular Hemoglobin 32.0 Mean Corpuscular Hemoglobin Concent 33.8 Red Cell Distribution Width 11.9 Platelet Count 149 Mean Platelet Volume 9.9 Immature Granulocytes % 0.700 H Neutrophils % 65.7 Lymphocytes % 20.3 Monocytes % 10.4 Eosinophils % 2.2 Basophils % 0.7 Nucleated Red Blood Cells % 0.0 Immature Granulocytes # 0.040 H Neutrophils # 3.9 Lymphocytes # 1.2 Monocytes # 0.6 Eosinophils # 0.1 Basophils # 0.0 Nucleated Red Blood Cells # 0.0 Sodium Level 141 Potassium Level 4.8 Chloride Level 107 Carbon Dioxide Level 23 Anion Gap 11 Blood Urea Nitrogen 42 H Creatinine 2.71 H Est Glomerular Filtrat Rate mL/min 24 L Glucose Level 95 Calcium Level 9.3 Phosphorus Level 4.8 Magnesium Level 2.7 H Medications Medication Current Medications IV Flush (NS 3 ml) 3 ml PER PROTOCOL IV ; Start 10/27/18 at 00:00 Ondansetron HCl (Zofran Tab) 4 mg Q6H PRN PO NAUSEA/VOMITING; Start 10/27/18 at 00:00 Acetaminophen (Tylenol Tab) 650 mg Q6H PRN PO .PAIN 1-3 OR TEMP Last administered on 10/29/18 08:42; Admin Dose 650 MG; Start 10/27/18 at 00:00 Docusate Sodium (Colace) 100 mg Q12H PRN PO .CONSTIPATION Last administered on 11/06/18 05:39; Admin Dose 100 MG; Start 10/27/18 at 00:00 Bisacodyl (Dulcolax) 5 mg DAILY PRN PO .CONSTIPATION Last administered on 11/06/18 05:39; Admin Dose 5 MG; Start 10/27/18 at 00:00 Tramadol HCl (Ultram) 50 mg Q6H PRN PO MODERATE PAIN LEVEL 4-6 Last admini stered on 11/08/18 09:13; Admin Dose 50 MG; Start 10/27/18 at 03:30 Hydralazine HCl (Apresoline) 10 mg Q4H PRN IV HYPERTENSION Last administered on 10/27/18 05:07; Admin Dose 10 MG; Start 10/27/18 at 05:00 Amlodipine Besylate (Norvasc) 5 mg DAILY PO Last administered on 11/08/18 09:12; Admin Dose 5 MG; Start 10/27/18 at 09:00 Cholecalciferol (Vitamin D) 1,000 unit DAILY PO Last administered on 11/08/18 09:12; Admin Dose 1,000 UNIT; Start 10/27/18 at 09:00 Duloxetine HCl (Cymbalta) 120 mg DAILY PO Last administered on 11/08/18 09:11; Admin Dose 120 MG; Start 10/27/18 at 09:00 Risperidone (Risperdal) 2 mg BID PO Last administered on 11/08/18 09:13; Admin Dose 2 MG; Start 10/27/18 at 09:00 Ropinirole HCl (Requip) 0.25 mg TID PO Last administered on 11/08/18 09:13; Admin Dose 0.25 MG; Start 10/27/18 at 10:30 Atorvastatin Calcium (Lipitor) 10 mg DAILY@21 PO Last administered on 11/07/18 20:17; Admin Dose 10 MG; Start 10/27/18 at 21:00 Senna/Docusate Sodium (Senokot-S) 1 tab BID PO Last administered on 11/08/18 09:13; Admin Dose 1 TAB; Start 10/27/18 at 21:00 Gabapentin (Neurontin) 400 mg TID PO Last administered on 11/08/18 09:13; Admin Dose 400 MG; Start 10/27/18 at 13:00 Morphine Sulfate (morphine) 2 mg Q2H PRN IV SEVERE PAIN LEVEL 7-10 Last administered on 11/05/18 00:00; Admin Dose 2 MG; Start 10/27/18 at 18:30 Topiramate (Topamax) 25 mg BID PO Last administered on 11/08/18 09:14; Admin Dose 25 MG; Start 10/28/18 at 11:00 Guaifenesin (Mucinex) 600 mg BID PO Last administered on 11/08/18 09:14; Admin Dose 600 MG; Start 10/28/18 at 14:00 Magnesium Oxide (Mag-Ox 400) 400 mg BID PO Last administered on 11/08/18 09:12; Admin Dose 400 MG; Start 10/29/18 at 21:00 Tamsulosin HCl (Flomax) 0.4 mg HS PO Last administered on 11/07/18 20:17; Admin Dose 0.4 MG; Start 10/29/18 at 21:00 Levalbuterol (Xopenex Neb) 1.25 mg Q3H RESP THERAPY PRN HHN Shortness of breath; Start 10/30/18 at 23:30 Ipratropium [place] (Atrovent 0.02% (Neb)) 0.5 mg Q3H RESP THERAPY PRN HHN S HORTNESS OF BREATH Last administered on 11/02/18 01:00; Admin Dose 0.5 MG; Start 10/30/18 at 23:30 Acetylcysteine (Mucomyst) 2 ml Q8H RESP THERAPY NEB Last administered on 11/06/18 08:35; Admin Dose 2 ML; Start 10/31/18 at 16:00 Levalbuterol (Xopenex Neb) 0.63 mg Q8H RESP THERAPY HHN Last administered on 11/06/18 08:35; Admin Dose 0.63 MG; Start 10/31/18 at 16:00 Clonazepam (Klonopin) 1 mg BID PO Last administered on 11/08/18 09:12; Admin Dose 1 MG; Start 11/03/18 at 21:00 Morphine Sulfate (Ms Contin (Er)) 15 mg BID PO Last administered on 11/07/18 20:17; Admin Dose 15 MG; Start 11/03/18 at 21:00 Levofloxacin (Levaquin) 750 mg Q48H PO Last administered on 11/07/18 18:38; Admin Dose 750 MG; Start 11/07/18 at 16:00 BELEN DIAZ NP November 08, 2018 12:33
--- NOTE | 2018-11-08 16:00 | RADRPT ---
Vent Rate: 42 bpm RR Interval: 1424 msec [place] Interval: 161 msec QRS Duration: 102 msec QT Interval: 490 msec QTC Interval: 411 msec P-R-T [place]: 80 - 75 - 93 degrees Sinus bradycardia...rate< 50 Ventricular premature complex...V complex w/ short R-R interval Low voltage, extremity leads...all extremity leads <0.5mV Abnrm T, consider ischemia, anterolateral lds...T <-0.20mV, I aVL V2-V6 Electronically Signed By: Rob Medina
--- NOTE | 2018-11-08 17:49 | CONS ---
Assessment/Plan Assessment/Plan Hospital Course (Demo Recall) 68 yo with bradycardia, junctional rhythm, and 4 second pause while awake. He is on no ibis blockers, no pain/anxiety to lead to increased vagal tone, and electrolytes including magnesium are stable. Therefore, he needs a pacemaker. Imp: Sick sinus syndrome CKD stage 4 Psychiatric issues Recommendations: Pacemaker placement tomorrow. Discussed with patient what a pacemaker is and described the procedure. He agrees to proceed. I have discussed with Dr. Arana, have shared patient's ekg and rhythm tracings, and he has agreed to place a pacemaker tomorrow. Consultation Date/Type/Reason Admit Date/Time Oct 27, 2018 at 10:52 Initial Consult Date 10/27/18 Type of Consult Cardiology Reason for Consultation bradycardia and pauses Requesting Provider: ANIYAH KING Date/Time of Note DATE: 11/08/18 TIME: 17:36 24 HR Interval Summary Free Text/Dictation I was asked to reevaluate Mr Gates due to bradycardia. When I initially saw him he was bradycardic, but was hypomagnesemic, and the bradycardia resolved with repleting potassium. He was also quite anxious and having severe headaches. Overnight he was quite bradycardic on med-surg and transferred to telemetry. Here he has continued to be bradycardic. He had a 4-second pause at 2:47 pm, while awake. EKG this am shows sinus rhythm on part of the tracing, but also junctional rhythm with possibly a retrograde P wave, and also probable av dissociation. He feels well, no headache, is not anxious, is quite pleasant and conversant. No lightheadedness or syncope. Exam/Review of Systems Vital Signs Vitals Vital Signs Date Temp Pulse Resp B/P (MAP) Pulse Ox O2 O2 Flow FiO2 Time Delivery Rate 11/08/18 95 4.0 16:12 11/08/18 41 16:00 11/08/18 98.6 18 110/54 15:18 (72) 11/08/18 Nasal 15:13 Cannula 11/06/18 21 00:56 Intake and Output 11/07/18 11/07/18 11/08/18 1515:00 23:00 07:00 IntakeIntake Total 710 ml 420 ml 480 ml OutputOutput Total 600 ml 600 ml 400 ml BalanceBalance 110 ml -180 ml 80 ml Exam Constitutional: alert, oriented, well developed Psych: no complaints, nl mood/affect Head: normocephalic, atraumatic Eyes: EOMI, nl lids, nl sclera ENMT: nl external ears & nose Neck: supple; No jvd, No bruits Respiratory: clear to auscultation, normal air movement Cardiovascular: regular rate and rhythm (bradycardic); No murmurs/extra sounds Gastrointestinal: soft, nl liver, spleen, non-tender Musculoskeletal: nl extremities to inspection Extremities: No edema Neurological: nl mental status, nl speech Skin: nl turgor Labs Result Diagram: 11/08/18 0423 11/08/18 0423 Results 24hrs Laboratory Tests Test 11/08/18 04:21 11/08/18 04:23 11/08/18 04:31 Thyroid Stimulating Hormone (TSH) 0.784 Free Thyroxine 1.68 White Blood Count 6.0 # Red Blood Count 3.69 L Hemoglobin 11.8 L Hematocrit 34.9 L Mean Corpuscular Volume 94.6 Mean Corpuscular Hemoglobin 32.0 Mean Corpuscular Hemoglobin Concent 33.8 Red Cell Distribution Width 11.9 Platelet Count 149 Mean Platelet Volume 9.9 Immature Granulocytes % 0.700 H Neutrophils % 65.7 Lymphocytes % 20.3 Monocytes % 10.4 Eosinophils % 2.2 Basophils % 0.7 Nucleated Red Blood Cells % 0.0 Immature Granulocytes # 0.040 H Neutrophils # 3.9 Lymphocytes # 1.2 Monocytes # 0.6 Eosinophils # 0.1 Basophils # 0.0 Nucleated Red Blood Cells # 0.0 Sodium Level 141 Potassium Level 4.8 Chloride Level 107 Carbon Dioxide Level 23 Anion Gap 11 Blood Urea Nitrogen 42 H Creatinine 2.71 H Est Glomerular Filtrat Rate mL/min 24 L Glucose Level 95 Calcium Level 9.3 Phosphorus Level 4.8 Magnesium Level 2.7 H Medications Medications Current Medications IV Flush (NS 3 ml) 3 ml PER PROTOCOL IV ; Start 10/27/18 at 00:00 Ondansetron HCl (Zofran Tab) 4 mg Q6H PRN PO NAUSEA/VOMITING; Start 10/27/18 at 00:00 Acetaminophen (Tylenol Tab) 650 mg Q6H PRN PO .PAIN 1-3 OR TEMP Last administered on 10/29/18at 08:42; Admin Dose 650 MG; Start 10/27/18 at 00:00 Docusate Sodium (Colace) 100 mg Q12H PRN PO .CONSTIPATION Last administered on 11/06/18 05:39; Admin Dose 100 MG; Start 10/27/18 at 00:00 Bisacodyl (Dulcolax) 5 mg DAILY PRN PO .CONSTIPATION Last administered on 11/06/18 05:39; Admin Dose 5 MG; Start 10/27/18 at 00:00 Tramadol HCl (Ultram) 50 mg Q6H PRN PO MODERATE PAIN LEVEL 4-6 Last administered on 11/08/18 09:13; Admin Dose 50 MG; Start 10/27/18 at 03:30 Hydralazine HCl (Apresoline) 10 mg Q4H PRN IV HYPERTENSION Last administered on 10/27/18 05:07; Admin Dose 10 MG; Start 10/27/18 at 05:00 Amlodipine Besylate (Norvasc) 5 mg DAILY PO Last administered on 11/08/18 09:12; Admin Dose 5 MG; Start 10/27/18 at 09:00 Cholecalciferol (Vitamin D) 1,000 unit DAILY PO Last administered on 11/08/18 09:12; Admin Dose 1,000 UNIT; Start 10/27/18 at 09:00 Duloxetine HCl (Cymbalta) 120 mg DAILY PO Last administered on 11/08/18 09:11; Admin Dose 120 MG; Start 10/27/18 at 09:00 Risperidone (Risperdal) 2 mg BID PO Last administered on 11/08/18 09:13; Admin Dose 2 MG; Start 10/27/18 at 09:00 Atorvastatin Calcium (Lipitor) 10 mg DAILY@21 PO Last administered on 11/07/18 20:17; Admin Dose 10 MG; Start 10/27/18 at 21:00 Senna/Docusate Sodium (Senokot-S) 1 tab BID PO Last administered on 11/08/18 09:13; Admin Dose 1 TAB; Start 10/27/18 at 21:00 Gabapentin (Neurontin) 400 mg TID PO Last administered on 11/08/18 12:23; Admin Dose 400 MG; Start 10/27/18 at 13:00 Morphine Sulfate (morphine) 2 mg Q2H PRN IV SEVERE PAIN LEVEL 7-10 Last administered on 11/05/18 00:00; Admin Dose 2 MG; Start 10/27/18 at 18:30 Topiramate (Topamax) 25 mg BID PO Last administered on 11/08/18 09:14; Admin Dose 25 MG; Start 10/28/18 at 11:00 Guaifenesin (Mucinex) 600 mg BID PO Last administered on 11/08/18 09:14; Admin Dose 600 MG; Start 10/28/18 at 14:00 Magnesium Oxide (Mag-Ox 400) 400 mg BID PO Last administered on 11/08/18 09:12; Admin Dose 400 MG; Start 10/29/18 at 21:00 Tamsulosin HCl (Flomax) 0.4 mg HS PO Last administered on 11/07/18 20:17; Admin Dose 0.4 MG; Start 10/29/18 at 21:00 Levalbuterol (Xopenex Neb) 1.25 mg Q3H RESP THERAPY PRN HHN Shortness of breath; Start 10/30/18 at 23:30 Ipratropium [place] (Atrovent 0.02% (Neb)) 0.5 mg Q3H RESP THERAPY PRN HHN SHORTNESS OF BREATH Last administered on 11/02/18 01:00; Admin Dose 0.5 MG; Start 10/30/18 at 23:30 Levalbuterol (Xopenex Neb) 0.63 mg Q8H RESP THERAPY HHN Last administered on 11/08/18 16:09; Admin Dose 0.63 MG; Start 10/31/18 at 16:00 Clonazepam (Klonopin) 1 mg BID PO Last administered on 11/08/18 09:12; Admin Dose 1 MG; Start 11/03/18 at 21:00 Levofloxacin (Levaquin) 750 mg Q48H PO Last administered on 11/07/18 18:38; Admin Dose 750 MG; Start 11/07/18 at 16:00 BALTAZAR BAKER November 08, 2018 17:49
[2018-11-08] MEDS: ATORVASTATIN 10 MG TAB PO SCH (21:06)
[2018-11-08] MEDS: TAMSULOSIN (SR) 0.4 MG CAP PO SCH (21:16)
[2018-11-09] VITALS (13 sets, daily range): BP systolic 96–161; BP diastolic 56–81; PULSE 38–83; RESP 18–19
[2018-11-09] MEDS: LEVALBUTEROL (NEB) 0.63 MG/3 ML AMP HHN SCH ×2 (08:00→16:00)
[2018-11-09] MEDS: GUAIFENESIN LA 600 MG TABSR PO SCH ×2 (08:22→20:30)
[2018-11-09] MEDS: CHOLECALCIFEROL 1,000 UNIT TAB PO SCH (08:22)
[2018-11-09] MEDS: clonAZEPAM 0.5 MG TAB PO SCH ×2 (08:22→20:35)
[2018-11-09] MEDS: DULOXETINE 30 MG CAP DR PO SCH (08:23)
[2018-11-09] MEDS: AMLODIPINE 2.5 MG TAB PO SCH (08:23)
[2018-11-09] MEDS: RISPERIDONE 2 MG TAB PO SCH ×2 (08:23→20:31)
[2018-11-09] MEDS: SENNA/DOCUSATE NA (8.6MG/50MG) TAB PO SCH ×2 (08:23→20:30)
[2018-11-09] MEDS: TOPIRAMATE 25 MG TAB PO SCH ×2 (08:23→20:31)
[2018-11-09] MEDS: GABAPENTIN 400 MG CAP PO SCH ×3 (08:23→20:29)
[2018-11-09] MEDS: MAGNESIUM OXIDE 400 MG TAB PO SCH ×2 (08:23→20:29)
[2018-11-09] MEDS: SOD CHLORIDE 0.9% 1,000 ML IV SCH (08:45)
--- NOTE | 2018-11-09 09:23 | PN ---
DATE: 11/09/2018 SUBJECTIVE: The patient is stable. The patient is noted to have multiple episodes of arrhythmia inc luding junctional and 6-second pause. The patient is pending possible pacemaker placement. No other events noted. OBJECTIVE: VITAL SIGNS: Blood pressure is 111/56, respirations 19, pulse 72, temperature 98.1. HEENT: Head is normocephalic. NECK: Supple. HEART: Regular rate. LUNGS: Show diminished breath sounds at the base. ABDOMEN: Soft, nontender to palpation without rebound or guarding. EXTREMITIES: Negative for clubbing, cyanosis, no edema. DERMATOLOGIC: No rashes. MUSCULOSKELETAL: No joint effusion. NEUROLOGIC: No change in exam. MEDICATIONS: Reviewed. LABORATORY DATA: Reviewed. ASSESSMENT AND PLAN: 1. Nonoliguric acute kidney injury on top of chronic kidney disease stage IIIB/IV with previous base line creatinine of 2.5 mg/dL. Etiology of acute kidney injury is secondary to hemodynamics. Renal f unction is fluctuating, has declined in the last 48 hours. Plan is to place the patient on gentle IV hydration for fluid challenge. We will continue current medical management, supportive care, renall y dose all medications. 2. Hypernatremia, improved. Continue to encourage free water intake. 3. Anemia. Continue to monitor hemoglobin and hematocrit levels. 4. Mineral bone disorder, monitor calcium and phosphorus levels. 5. Acute hypoxemic respiratory failure secondary to pneumonia. The patient is clinically improving. Continue to monitor. 6. Arrhythmia. The patient is pending pacemaker placement. Continue to monitor. 7. Benign prostatic hypertrophy. Continue Flomax. 8. Schizophrenia, bipolar disorder. Continue medical management. 9. History of hepatitis C. Dictated By: BELLE ART DO NR/NTS Conf#: [id number] DID#: [id number] CC: ANIYAH KING MD; MARY JO PARRY NP; HANNAH MACIEL MD;*EndCC*
--- NOTE | 2018-11-09 09:37 | PSY ---
Date/Time of Note Date/Time of Note DATE: 11/09/18 TIME: 09:33 Psychiatric Subjective Eval Consent Pt consented to telemedicine: No Subjective Evaluation Patient location: inpatient Chief Complaint: BIBA from [facility],on the way to [place] for anxiety,Pulse 39 bpm,VALLADARES History of present illness The patient is a 68-year-old male evaluated last week, but could not continue the evaluation because the patient was very sedated. On a [id number] evaluation today patient is alert and oriented answering questions appropriately, he reports long history of mental illness, reports hearing voices calling out his name and yelling at him. He however denies suicidal ideation denies homicidal ideation and contracted for safety. Patient currently is on Risperdal and the dose is adequate to keep him stable the benefits of keeping that dose outweighs the risk. No other acute issues reported Past psychiatric history Long history of mental illness with hospitalization Hospitalization: other Medical history Problems Medical Problems: (1) Accidental mechanical suffocation by falling earth or other substance Status: Acute (2) Acute kidney injury Status: Acute (3) Acute psychosis Status: Acute (4) Acute weakness Status: Acute (5) Anxiety Status: Acute (6) Anxiety attack Status: Acute (7) Benign prostatic hyperplasia Status: Chronic (8) Bradycardia Status: Resolved (9) Cellulitis of buttock Status: Acute (10) Chronic active hepatitis C Status: Chronic (11) Chronic renal insufficiency Status: Acute (12) Coccyx pain Status: Acute (13) Dehydration Status: Acute (14) Essential hypertension Status: Chronic (15) Foreign body aspiration Status: Acute (16) Foreign body aspiration Status: Acute (17) Grave disability Status: Acute (18) Headache Status: Acute (19) Hip fracture, left Status: Acute (20) Hx of decubitus ulcer Status: Acute (21) Hyperlipidemia Status: Chronic (22) Hypertension Status: Acute (23) Hypertension Status: Acute (24) Hyponatremia Status: Acute (25) Hypoxia Status: Acute (26) Kidney disease, chronic, stage IV (GFR 15-29 ml/min) Status: Chronic (27) Neuropathy Status: Acute (28) Pain in eye Status: Acute (29) Pancytopenia Status: Acute (30) Renal insufficiency Status: Acute (31) Renal insufficiency Status: Acute (32) Schizoaffective disorder, bipolar type Status: Chronic (33) Sepsis due to cellulitis Status: Acute (34) Stage II decubitus ulcer Status: Acute (35) UTI (urinary tract infection) Status: Acute (36) Walker as ambulation aid Status: Chronic Allergies: Coded Allergies: No Known Allergies (Verified Allergy, Unknown, 06/02/18) Substance Abuse Substance abuse history: No Prior substance abuse treatmen: No Social History Marital status: other DPA/Conservatorship: No Psychiatric Objective Eval Review of Systems: Review of Systems: Not Applicable Physical Examination: Physical Examination: Not Applicable Appetite: Adequate Energy: Adequate Mental Status Examination: Appearance: Poor Hygiene Eye Contact: Fair Psychomotor Activity: Slow Behavior: Cooperative Speech: Soft AFFECT: Constricted Mood: Anxious Though Process: Linear Thought Content: Hallucinations Orientation: x4 Insight: Intact Judgement: Intact Attention Span: Distractible Laboratory Results Laboratory Tests Test 11/07/18 11:31 11/08/18 04:21 11/08/18 04:23 11/08/18 04:31 White Blood Count 3.7 10^3/ul 6.0 10^3/ul Red Blood Count 3.50 10^6/ul 3.69 10^6/ul Hemoglobin 11.3 g/dl 11.8 g/dl Hematocrit 33.2 % 34.9 % Mean Corpuscular 94.9 fl 94.6 fl Volume Mean Corpuscular 32.3 pg 32.0 pg Hemoglobin Mean Corpuscular 34.0 g/dl 33.8 g/dl Hemoglobin Concen t Red Cell 11.9 % 11.9 % Distribution Width Platelet Count 134 10^3/UL 149 10^3/UL Mean Platelet 9.7 fl 9.9 fl Volume Immature 1.600 % 0.700 % Granulocytes % Neutrophils % 57.3 % 65.7 % Lymphocytes % 23.1 % 20.3 % Monocytes % 12.6 % 10.4 % Eosinophils % 4.6 % 2.2 % Basophils % 0.8 % 0.7 % Nucleated Red 0.0 /100WBC 0.0 /100WBC Blood Cells % Immature 0.060 10^3/ul 0.040 10^3/ul Granulocytes # Neutrophils # 2.1 10^3/ul 3.9 10^3/ul Lymphocytes # 0.9 10^3/ul 1.2 10^3/ul Monocytes # 0.5 10^3/ul 0.6 10^3/ul Eosinophils # 0.2 10^3/ul 0.1 10^3/ul Basophils # 0.0 10^3/ul 0.0 10^3/ul Nucleated Red 0.0 10^3/ul 0.0 10^3/ul Blood Cells # Sodium Level 141 mmol/L 141 mmol/L Potassium Level 4.1 mmol/L 4.8 mmol/L Chloride Level 106 mmol/L 107 mmol/L Carbon Dioxide 26 mmol/L 23 mmol/L Level Anion Gap 9 11 Blood Urea 38 mg/dl 42 mg/dl Nitrogen Creatinine 2.39 mg/dl 2.71 mg/dl Est Glomerular 27 mL/min 24 mL/min Filtrat Rate mL/min Glucose Level 114 mg/dl 95 mg/dl Calcium Level 9.0 mg/dl 9.3 mg/dl Phosphorus Level 4.7 mg/dl 4.8 mg/dl Magnesium Level 2.3 mg/dl 2.7 mg/dl Thyroid 0.784 MIU/L Stimulating Hormone (TSH) Free Thyroxine 1.68 ng/dl Test 11/08/18 18:34 11/09/18 06:08 Urine Color YELLOW Urine Clarity CLEAR Urine pH 6.0 Urine Specific 1.006 [place] Urine Ketones NEGATIVE mg/dL Urine Nitrite NEGATIVE mg/dL Urine Bilirubin NEGATIVE mg/dL Urine NEGATIVE mg/dL Urobilinogen Urine Leukocyte NEGATIVE Bladimir/ul Esterase Urine Microscopic 2 /HPF RBC Urine Microscopic 2 /HPF WBC Urine Hemoglobin NEGATIVE mg/dL Urine Glucose NEGATIVE mg/dL Urine Total 2+ mg/dl Protein White Blood Count 4.8 10^3/ul Red Blood Count 3.58 10^6/ul Hemoglobin 11.3 g/dl Hematocrit 33.6 % Mean Corpuscular 93.9 fl Volume Mean Corpuscular 31.6 pg Hemoglobin Mean Corpuscular 33.6 g/dl Hemoglobin Concen t Red Cell 11.9 % Distribution Width Platelet Count 143 10^3/UL Mean Platelet 10.0 fl Volume Immature 0.800 % Granulocytes % Neutrophils % 56.0 % Lymphocytes % 30.2 % Monocytes % 8.2 % Eosinophils % 3.8 % Basophils % 1.0 % Nucleated Red 0.0 /100WBC Blood Cells % Immature 0.040 10^3/ul Granulocytes # Neutrophils # 2.7 10^3/ul Lymphocytes # 1.4 10^3/ul Monocytes # 0.4 10^3/ul Eosinophils # 0.2 10^3/ul Basophils # 0.1 10^3/ul Nucleated Red 0.0 10^3/ul Blood Cells # Prothrombin Time 14.0 Sec Prothrombin Time 1.1 Ratio INR International 1.07 Normalized Ratio Activated 29.1 Sec Partial Thrombopl ast Time Sodium Level 139 mmol/L Potassium Level 4.5 mmol/L Chloride Level 105 mmol/L Carbon Dioxide 23 mmol/L Level Anion Gap 11 Blood Urea 49 mg/dl Nitrogen Creatinine 2.94 mg/dl Est Glomerular 22 mL/min Filtrat Rate mL/min Glucose Level 90 mg/dl Calcium Level 8.8 mg/dl Phosphorus Level 5.7 mg/dl Magnesium Level 2.8 mg/dl Prostate Specific 0.4 ng/ml Antigen Assessment and Plan Assessment/Diagnosis Diagnosis Is affective disorder depressed type Recommendation/Plan Medication Management Continue current medications Multiple antipsychotics: No Psychotherapy Provide supportive therapy Discharge Disposition: Other Legal Status: Voluntary (Does not meet criteria for 5150) SOHAN CAMARGO NP November 09, 2018 09:36
--- NOTE | 2018-11-09 10:09 | PN ---
Date/Time of Note Date/Time of Note DATE: 11/09/18 TIME: 10:08 Assessment/Plan VTE Prophylaxis Risk score (from Ns)>0 risk: 6 SCD applied (from Ns): Yes Pharmacological prophylaxis: heparin Lines/Catheters IV Catheter Type (from [facility]): Peripheral IV Urinary Cath still in place: No Assessment/Plan Hospital Course SUBJECTIVE: Complains of watering in B/L eyes. OBJECTIVE: Physical Exam General: Adequately build 68 year-old male lying in bed in no apparent distress. HEENT: Normocephalic, atraumatic. Eyes: Anicteric sclerae, conjunctivae clear. ENT: Nasal septum midline, oral mucosa is dry. Neck supple, no JVD noticed. Respiratory: Bilaterally diminished breath sounds. No use of accessory muscles of respiration. No adventitious breath sounds. Cardiovascular: S1, S2 heard. Regular rate and rhythm. Abdomen: Soft, nontender, and nondistended. Bowel sounds positive in all 4 quadrants. Genitourinary: Deferred. Extremities: No cyanosis, no clubbing, no edema. Peripheral pulses palpable. Neurologic: Patient is awake and alert. Labs & Vitals per chart ASSESSMENT & PLAN 68-year-old male with comorbidities including CVA, hypertension, hyperlipidemia, CKD, depression, and schizophrenia who was transferred from a care home facility because of complaint of headache and bradycardia. 1. Bradycardia. -Status post evaluation by cardiology. -Bradycardia secondary to hypomagnesemia. -Resolved with magnesium repletion. -Started having bradycardia on 11/08/2018. -Status post reevaluation by cardiology on 11/08/2018 and recommended a pacemaker. -Pacemaker placement scheduled on 11/09/2018. 2. Acute on chronic kidney disease. -Being followed by nephrology. -Use nephrotoxic drugs with caution. 3. Schizophrenia. -Continue mood stabilizers. 4. Prostate hypertrophy. -Continue Flomax. 5. Patchy bilateral pulmonary infiltrates. -Continue treatment for healthcare associated pneumonia. -Switched to oral on 11/07/2018. 6. Dyslipidemia. -Continue statins. 7. Hypertension. -Continue antihypertensives. 8. Normocytic, normochromic anemia. -Unknown etiology. -Continue to monitor H&H. 9. Chronic sinusitis. -Stable. 10. Failure to thrive. -PT evaluation. 11. Fluids, electrolytes, and nutrition. -Renal diet. 12. DVT prophylaxis -Subcutaneous heparin. 13. Plan. -Continue antimicrobials. -Continue telemetry monitoring. -Await permanent pacemaker placement. The patient was seen in collaboration with Dr. Zaman. Result Diagram: 11/09/18 0608 11/09/18 0608 Results 24hrs Laboratory Tests Test 11/08/18 18:34 11/09/18 06:08 Urine Color YELLOW Urine Clarity CLEAR Urine pH 6.0 Urine Specific [place] 1.006 Urine Ketones NEGATIVE Urine Nitrite NEGATIVE Urine Bilirubin NEGATIVE Urine Urobilinogen NEGATIVE Urine Leukocyte Esterase NEGATIVE Urine Microscopic RBC 2 Urine Microscopic WBC 2 Urine Hemoglobin NEGATIVE Urine Glucose NEGATIVE Urine Total Protein 2+ H White Blood Count 4.8 Red Blood Count 3.58 L Hemoglobin 11.3 L Hematocrit 33.6 L Mean Corpuscular Volume 93.9 Mean Corpuscular Hemoglobin 31.6 Mean Corpuscular Hemoglobin Concent 33.6 Red Cell Distribution Width 11.9 Platelet Count 143 Mean Platelet Volume 10.0 Immature Granulocytes % 0.800 H Neutrophils % 56.0 Lymphocytes % 30.2 Monocytes % 8.2 Eosinophils % 3.8 Basophils % 1.0 Nucleated Red Blood Cells % 0.0 Immature Granulocytes # 0.040 H Neutrophils # 2.7 Lymphocytes # 1.4 Monocytes # 0.4 Eosinophils # 0.2 Basophils # 0.1 Nucleated Red Blood Cells # 0.0 Prothrombin Time 14.0 Prothrombin Time Ratio 1.1 INR International Normalized Ratio 1.07 Activated Partial Thromboplast Time 29.1 Sodium Level 139 Potassium Level 4.5 Chloride Level 105 Carbon Dioxide Level 23 Anion Gap 11 Blood Urea Nitrogen 49 H Creatinine 2.94 H Est Glomerular Filtrat Rate mL/min 22 L Glucose Level 90 Calcium Level 8.8 Phosphorus Level 5.7 H Magnesium Level 2.8 H Prostate Specific Antigen 0.4 Exam/Review of Systems Exam Vitals Vital Signs Date Temp Pulse Resp B/P (MAP) Pulse Ox O2 O2 Flow FiO2 Time Delivery Rate 11/09/18 Nasal 3.0 08:44 Cannula 11/09/18 72 08:11 11/09/18 98.1 19 111/56 92 07:21 (74) 11/06/18 21 00:56 Intake and Output 11/08/18 11/08/18 11/09/18 1515:00 23:00 07:00 IntakeIntake Total 240 ml 500 ml OutputOutput Total 1000 ml 2000 ml BalanceBalance 240 ml -500 ml -2000 ml Results Results 24hrs Laboratory Tests Test 11/08/18 18:34 11/09/18 06:08 Urine Color YELLOW Urine Clarity CLEAR Urine pH 6.0 Urine Specific [place] 1.006 Urine Ketones NEGATIVE Urine Nitrite NEGATIVE Urine Bilirubin NEGATIVE Urine Urobilinogen NEGATIVE Urine Leukocyte Esterase NEGATIVE Urine Microscopic RBC 2 Urine Microscopic WBC 2 Urine Hemoglobin NEGATIVE Urine Glucose NEGATIVE Urine Total Protein 2+ H White Blood Count 4.8 Red Blood Count 3.58 L Hemoglobin 11.3 L Hematocrit 33.6 L Mean Corpuscular Volume 93.9 Mean Corpuscular Hemoglobin 31.6 Mean Corpuscular Hemoglobin Concent 33.6 Red Cell Distribution Width 11.9 Platelet Count 143 Mean Platelet Volume 10.0 Immature Granulocytes % 0.800 H Neutrophils % 56.0 Lymphocytes % 30.2 Monocytes % 8.2 Eosinophils % 3.8 Basophils % 1.0 Nucleated Red Blood Cells % 0.0 Immature Granulocytes # 0.040 H Neutrophils # 2.7 Lymphocytes # 1.4 Monocytes # 0.4 Eosinophils # 0.2 Basophils # 0.1 Nucleated Red Blood Cells # 0.0 Prothrombin Time 14.0 Prothrombin Time Ratio 1.1 INR International Normalized Ratio 1.07 Activated Partial Thromboplast Time 29.1 Sodium Level 139 Potassium Level 4.5 Chloride Level 105 Carbon Dioxide Level 23 Anion Gap 11 Blood Urea Nitrogen 49 H Creatinine 2.94 H Est Glomerular Filtrat Rate mL/min 22 L Glucose Level 90 Calcium Level 8.8 Phosphorus Level 5.7 H Magnesium Level 2.8 H Prostate Specific Antigen 0.4 Medications Medication Current Medications IV Flush (NS 3 ml) 3 ml PER PROTOCOL IV ; Start 10/27/18 at 00:00 Ondansetron HCl (Zofran Tab) 4 mg Q6H PRN PO NAUSEA/VOMITING; Start 10/27/18 at 00:00 Acetaminophen (Tylenol Tab) 650 mg Q6H PRN PO .PAIN 1-3 OR TEMP Last administered on 10/29/18at 08:42; Admin Dose 650 MG; Start 10/27/18 at 00:00 Docusate Sodium (Colace) 100 mg Q12H PRN PO .CONSTIPATION Last administered on 11/06/18at 05:39; Admin Dose 100 MG; Start 10/27/18 at 00:00 Bisacodyl (Dulcolax) 5 mg DAILY PRN PO .CONSTIPATION Last administered on 11/06/18 05:39; Admin Dose 5 MG; Start 10/27/18 at 00:00 Tramadol HCl (Ultram) 50 mg Q6H PRN PO MODERATE PAIN LEVEL 4-6 Last administered on 11/08/18 23:21; Admin Dose 50 MG; Start 10/27/18 at 03:30 Hydralazine HCl (Apresoline) 10 mg Q4H PRN IV HYPERTENSION Last administered on 10/27/18 05:07; Admin Dose 10 MG; Start 10/27/18 at 05:00 Amlodipine Besylate (Norvasc) 5 mg DAILY PO Last administered on 11/09/18 08:23; Admin Dose 5 MG; Start 10/27/18 at 09:00 Cholecalciferol (Vitamin D) 1,000 unit DAILY PO Last administered on 11/09/18 08:22; Admin Dose 1,000 UNIT; Start 10/27/18 at 09:00 Duloxetine HCl (Cymbalta) 120 mg DAILY PO Last administered on 11/09/18 08:23; Admin Dose 120 MG; Start 10/27/18 at 09:00 Risperidone (Risperdal) 2 mg BID PO Last administered on 11/09/18 08:23; Admin Dose 2 MG; Start 10/27/18 at 09:00 Atorvastatin Calcium (Lipitor) 10 mg DAILY@21 PO Last administered on 11/08/18 21:06; Admin Dose 10 MG; Start 10/27/18 at 21:00 Senna/Docusate Sodium (Senokot-S) 1 tab BID PO Last administered on 11/09/18 08:23; Admin Dose 1 TAB; Start 10/27/18 at 21:00 Gabapentin (Neurontin) 400 mg TID PO Last administered on 11/09/18 08:23; Admin Dose 400 MG; Start 10/27/18 at 13:00 Morphine Sulfate (morphine) 2 mg Q2H PRN IV SEVERE PAIN LEVEL 7-10 Last administered on 11/05/18 00:00; Admin Dose 2 MG; Start 10/27/18 at 18:30 Topiramate (Topamax) 25 mg BID PO Last administered on 11/09/18 08:23; Admin Dose 25 MG; Start 10/28/18 at 11:00 Guaifenesin (Mucinex) 600 mg BID PO Last administered on 11/09/18 08:22; Admin Dose 600 MG; Start 10/28/18 at 14:00 Magnesium Oxide (Mag-Ox 400) 400 mg BID PO Last administered on 11/09/18 08:23; Admin Dose 400 MG; Start 10/29/18 at 21:00 Tamsulosin HCl (Flomax) 0.4 mg HS PO Last administered on 11/08/18 21:16; Admin Dose 0.4 MG; Start 10/29/18 at 21:00 Levalbuterol (Xopenex Neb) 1.25 mg Q3H RESP THERAPY PRN HHN Shortness of breath ; Start 10/30/18 at 23:30 Ipratropium [place] (Atrovent 0.02% (Neb)) 0.5 mg Q3H RESP THERAPY PRN HHN SHORTNESS OF BREATH Last administered on 11/02/18 01:00; Admin Dose 0.5 MG; Start 10/30/18 at 23:30 Levalbuterol (Xopenex Neb) 0.63 mg Q8H RESP THERAPY HHN Last administered on 11/08/18 16:09; Admin Dose 0.63 MG; Start 10/31/18 at 16:00 Clonazepam (Klonopin) 1 mg BID PO Last administered on 11/09/18 08:22; Admin Dose 1 MG; Start 11/03/18 at 21:00 Levofloxacin (Levaquin) 750 mg Q48H PO Last administered on 11/07/18 18:38; Admin Dose 750 MG; Start 11/07/18 at 16:00 Sodium Chloride 1,000 ml @ 50 mls/hr Q20H IV Last administered on 11/09/18 08:45; Admin Dose 50 MLS/HR; Start 11/09/18 at 08:30 BELEN DIAZ NP November 09, 2018 10:09
[2018-11-09] MEDS: LORATADINE 10 MG TAB PO SCH (12:10)
[2018-11-09] MEDS ORDERED: POLYMYXIN/BACITRACIN 1L IRRIG ONE (14:24)
--- NOTE | 2018-11-09 14:49 | CONS ---
Assessment/Plan Assessment/Plan Hospital Course (Demo Recall) Sick sinus syndrome with up to 8-second pauses during awake time Status post pneumonia has been treated Hypertension Psych disorder/schizophrenia Electrolyte abnormality: Has been replaced Renal insufficiency Recommendation: Permanent pacemaker has been recommended to the patient. [facility] was discussed with the patient and present on his significant other at the bedside. Risks including but not limited to risk of infection vascular complication bleeding complication pneumothorax hemothorax MS stroke arrhythmia renal failure etc. discussed with the patient. Consent has been obtained Plan for permanent pacemaker today Thank you GAUDENCIO SANDERS MD [facility] Consultation Date/Type/Reason Admit Date/Time Oct 27, 2018 at 10:52 Date of Consultation: November 09, 2018 Type of Consult Cardiology/ presurgical H&P Reason for Consultation PT NEEDS PPM Requesting Provider: BALTAZAR BAKER Date/Time of Note DATE: 11/09/18 TIME: 14:45 Hx of Present Illness Interventional cardiology consultation note Chief complaint: Bradycardia Reason for consult: Sick sinus syndrome History of present illness: Thank you for this referral. History with the patient discussion with his significant other from discussion was with physician and review of the chart. This is a 68-year-old gentleman who was a admitted to our hospital from his half-way facility because of marked bradycardia down to 30s. Patient complains of poor historian due to his psych disorder. He denies any syncope or syncope to me. Initially he was felt that his bradycardia was related to electrolyte abnormality which has been replaced. Initially his heart rate improved however yesterday was noted to be markedly bradycardic. He was admitted to telemetry unit. On telemetry unit he was noted to have multiple long pauses. Initially was more than 4 seconds during awake time. This morning he also had more than 8-second pause. Because of all of her pacemaker was recommended Allergies: No known drug allergies Medications were reviewed as per medical reconciliation sheet Family history: No history of coronary artery disease Social history: Does not smoke or drink at the moment Past medical history: Psych disorder/history of schizophrenia BPH hypertension Review of system: Patient denies all others except for above-mentioned Past Medical History Medical History: renal disease Home Meds Active Scripts Metronidazole (Flagyl) 500 Mg Tab, 500 MG PO Q8 for 7 Days, TAB Prov:TESS HALL MD 06/02/18 Levofloxacin* (Levaquin*) 750 Mg Tablet, 750 MG PO DAILY for 7 Days, TAB Prov:TESS HALL MD 06/02/18 Reported Medications [Docusate 8.6 Mg] No Conflict Check, 8.6 TAB BID 10/27/18 Cholecalciferol* (Vitamin D3*) 1,000 Unit Tablet, 1000 UNIT PO DAILY, TAB 10/27/18 Amlodipine Besylate* (Amlodipine Besylate*) 2.5 Mg Tablet, 5 MG PO DAILY, #30 TAB 10/27/18 Doxycycline Monohydrate* (Doxycycline Monohydrate*) 100 Mg Tablet, 100 MG PO BID, TAB 10/27/18 Tamsulosin Hcl* (Flomax*) 0.4 Mg Cap.er.24h, 0.8 MG PO DAILY, CAP 10/27/18 Ropinirole Hcl* (Ropinirole Hcl*) 0.25 Mg Tablet, 0.25 MG PO TID, TAB 10/27/18 Gabapentin* (Gabapentin*) 300 Mg Capsule, 300 MG PO TID, #90 CAP 10/27/18 Duloxetine Hcl* (Duloxetine Hcl*) 60 Mg Capsule.dr, 120 MG PO DAILY, #30 CAP 10/27/18 Simvastatin* (Zocor*) 20 Mg Tablet, 20 MG PO QHS, #30 TAB 06/02/18 Risperidone* (Risperidone*) 2 Mg Tablet, 2 MG PO BID, TAB 06/02/18 Omeprazole* (Omeprazole*) 20 Mg Capsule.dr, 20 MG PO DAILY, #30 CAP 06/02/18 Clonazepam* (Klonopin*) 1 Mg Tablet, 1 MG PO DAILY PRN for ANXIETY, TAB 2 TABS IN THE MORNING 1 TAB ON LUNCH AND EVENING 2 TABS AT BEDTIME 06/02/18 Medications Current Medications IV Flush (NS 3 ml) 3 ml PER PROTOCOL IV ; Start 10/27/18 at 00:00 Ondansetron HCl (Zofran Tab) 4 mg Q6H PRN PO NAUSEA/VOMITING; Start 10/27/18 at 00:00 Acetaminophen (Tylenol Tab) 650 mg Q6H PRN PO .PAIN 1-3 OR TEMP Last administered on 10/29/18at 08:42; Admin Dose 650 MG; Start 10/27/18 at 00:00 Docusate Sodium (Colace) 100 mg Q12H PRN PO .CONSTIPATION Last administered on 11/06/18 05:39; Admin Dose 100 MG; Start 10/27/18 at 00:00 Bisacodyl (Dulcolax) 5 mg DAILY PRN PO .CONSTIPATION Last administered on 11/06/18 05:39; Admin Dose 5 MG; Start 10/27/18 at 00:00 Tramadol HCl (Ultram) 50 mg Q6H PRN PO MODERATE PAIN LEVEL 4-6 Last ad ministered on 11/08/18 23:21; Admin Dose 50 MG; Start 10/27/18 at 03:30 Hydralazine HCl (Apresoline) 10 mg Q4H PRN IV HYPERTENSION Last administered on 10/27/18 05:07; Admin Dose 10 MG; Start 10/27/18 at 05:00 Amlodipine Besylate (Norvasc) 5 mg DAILY PO Last administered on 11/09/18 08:23; Admin Dose 5 MG; Start 10/27/18 at 09:00 Cholecalciferol (Vitamin D) 1,000 unit DAILY PO Last administered on 11/09/18 08:22; Admin Dose 1,000 UNIT; Start 10/27/18 at 09:00 Duloxetine HCl (Cymbalta) 120 mg DAILY PO Last administered on 11/09/18 08:23; Admin Dose 120 MG; Start 10/27/18 at 09:00 Risperidone (Risperdal) 2 mg BID PO Last administered on 11/09/18 08:23; Admin Dose 2 MG; Start 10/27/18 at 09:00 Atorvastatin Calcium (Lipitor) 10 mg DAILY@21 PO Last administered on 11/08/18 21:06; Admin Dose 10 MG; Start 10/27/18 at 21:00 Senna/Docusate Sodium (Senokot-S) 1 tab BID PO Last administered on 11/09/18 08:23; Admin Dose 1 TAB; Start 10/27/18 at 21:00 Gabapentin (Neurontin) 400 mg TID PO Last administered on 11/09/18 12:11; Admin Dose 400 MG; Start 10/27/18 at 13:00 Morphine Sulfate (morphine) 2 mg Q2H PRN IV SEVERE PAIN LEVEL 7-10 Last administered on 11/05/18 00:00; Admin Dose 2 MG; Start 10/27/18 at 18:30 Topiramate (Topamax) 25 mg BID PO Last administered on 11/09/18 08:23; Admin Dose 25 MG; Start 10/28/18 at 11:00 Guaifenesin (Mucinex) 600 mg BID PO Last administered on 11/09/18 08:22; Admin Dose 600 MG; Start 10/28/18 at 14:00 Magnesium Oxide (Mag-Ox 400) 400 mg BID PO Last administered on 11/09/18 08:23; Admin Dose 400 MG; Start 10/29/18 at 21:00 Tamsulosin HCl (Flomax) 0.4 mg HS PO Last administered on 11/08/18 21:16; Admin Dose 0.4 MG; Start 10/29/18 at 21:00 Levalbuterol (Xopenex Neb) 1.25 mg Q3H RESP THERAPY PRN HHN Shortness of breath; Start 10/30/18 at 23:30 Ipratropium [place] (Atrovent 0.02% (Neb)) 0.5 mg Q3H RESP THERAPY PRN HHN SHORTNESS OF BREATH Last administered on 11/02/18 01:00; Admin Dose 0.5 MG; Start 10/30/18 at 23:30 Levalbuterol (Xopenex Neb) 0.63 mg Q8H RESP THERAPY HHN Last administered on 11/08/18 16:09; Admin Dose 0.63 MG; Start 10/31/18 at 16:00 Clonazepam (Klonopin) 1 mg BID PO Last administered on 11/09/18 08:22; Admin Dose 1 MG; Start 11/03/18 at 21:00 Levofloxacin (Levaquin) 750 mg Q48H PO Last administered on 11/07/18 18:38; Admin Dose 750 MG; Start 11/07/18 at 16:00 Sodium Chloride 1,000 ml @ 50 mls/hr Q20H IV Last administered on 11/09/18 08:45; Admin Dose 50 MLS/HR; Start 11/09/18 at 08:30 Loratadine (Claritin) 10 mg DAILY PO Last administered on 11/09/18 12:10; Admin Dose 10 MG; Start 11/09/18 at 11:00 Allergies: Coded Allergies: No Known Allergies (Verified Allergy, Unknown, 06/02/18) Past Surgical History Past Surgical Hx: cholecystectomy Social History Alcohol Use: none Smoking Status: Current every day smoker Drug Use: none Exam/Review of Systems Vital Signs Vitals Vital Signs Date Temp Pulse Resp B/P (MAP) Pulse Ox O2 O2 Flow FiO2 Time Delivery Rate 11/09/18 74 12:08 11/09/18 98.5 19 96/58 (71) 94 Nasal 10:57 Cannula 11/09/18 3.0 08:44 11/06/18 21 00:56 Intake and Output 11/08/18 11/08/18 11/09/18 1515:00 23:00 07:00 IntakeIntake Total 240 ml 500 ml OutputOutput Total 1000 ml 2000 ml BalanceBalance 240 ml -500 ml -2000 ml Exam Exam General: no acute distress HEENT: NC/AT. pupils are equal. round. NECK: NO JVD. no stridor. CV: RRR. systolic murmur; no gallop or rubs. PULM: no wheezing or rhonchi. GI: SOFT, NT, ND, no rebound or guarding Extremity: trace B/L LE edema. no clubbing. neuro: awake and alert, OX3. Psych: calm and pleasant rectal: deferred : normal Labs Result Diagram: 11/09/18 0608 11/09/18 0608 Results 24hrs Laboratory Tests Test 11/08/18 18:34 11/09/18 06:08 Urine Color YELLOW Urine Clarity CLEAR Urine pH 6.0 Urine Specific [place] 1.006 Urine Ketones NEGATIVE Urine Nitrite NEGATIVE Urine Bilirubin NEGATIVE Urine Urobilinogen NEGATIVE Urine Leukocyte Esterase NEGATIVE Urine Microscopic RBC 2 Urine Microscopic WBC 2 Urine Hemoglobin NEGATIVE Urine Glucose NEGATIVE Urine Total Protein 2+ H White Blood Count 4.8 Red Blood Count 3.58 L Hemoglobin 11.3 L Hematocrit 33.6 L Mean Corpuscular Volume 93.9 Mean Corpuscular Hemoglobin 31.6 Mean Corpuscular Hemoglobin Concent 33.6 Red Cell Distribution Width 11.9 Platelet Count 143 Mean Platelet Volume 10.0 Immature Granulocytes % 0.800 H Neutrophils % 56.0 Lymphocytes % 30.2 Monocytes % 8.2 Eosinophils % 3.8 Basophils % 1.0 Nucleated Red Blood Cells % 0.0 Immature Granulocytes # 0.040 H Neutrophils # 2.7 Lymphocytes # 1.4 Monocytes # 0.4 Eosinophils # 0.2 Basophils # 0.1 Nucleated Red Blood Cells # 0.0 Prothrombin Time 14.0 Prothrombin Time Ratio 1.1 INR International Normalized Ratio 1.07 Activated Partial Thromboplast Time 29.1 Sodium Level 139 Potassium Level 4.5 Chloride Level 105 Carbon Dioxide Level 23 Anion Gap 11 Blood Urea Nitrogen 49 H Creatinine 2.94 H Est Glomerular Filtrat Rate mL/min 22 L Glucose Level 90 Calcium Level 8.8 Phosphorus Level 5.7 H Magnesium Level 2.8 H Prostate Specific Antigen 0.4 Medications Medications Current Medications IV Flush (NS 3 ml) 3 ml PER PROTOCOL IV ; Start 10/27/18 at 00:00 Ondansetron HCl (Zofran Tab) 4 mg Q6H PRN PO NAUSEA/VOMITING; Start 10/27/18 at 00:00 Acetaminophen (Tylenol Tab) 650 mg Q6H PRN PO .PAIN 1-3 OR TEMP Last administered on 10/29/18 08:42; Admin Dose 650 MG; Start 10/27/18 at 00:00 Docusate Sodium (Colace) 100 mg Q12H PRN PO .CONSTIPATION Last administered on 11/06/18 05:39; Admin Dose 100 MG; Start 10/27/18 at 00:00 Bisacodyl (Dulcolax) 5 mg DAILY PRN PO .CONSTIPATION Last administered on 11/06/18 05:39; Admin Dose 5 MG; Start 10/27/18 at 00:00 Tramadol HCl (Ultram) 50 mg Q6H PRN PO MODERATE PAIN LEVEL 4-6 Last administered on 11/08/18 23:21; Admin Dose 50 MG; Start 10/27/18 at 03:30 Hydralazine HCl (Apresoline) 10 mg Q4H PRN IV HYPERTENSION Last administered on 10/27/18 05:07; Admin Dose 10 MG; Start 10/27/18 at 05:00 Amlodipine Besylate (Norvasc) 5 mg DAILY PO Last administered on 11/09/18 08:23; Admin Dose 5 MG; Start 10/27/18 at 09:00 Cholecalciferol (Vitamin D) 1,000 unit DAILY PO Last administered on 11/09/18 08:22; Admin Dose 1,000 UNIT; Start 10/27/18 at 09:00 Duloxetine HCl (Cymbalta) 120 mg DAILY PO Last administered on 11/09/18 08:23; Admin Dose 120 MG; Start 10/27/18 at 09:00 Risperidone (Risperdal) 2 mg BID PO Last administered on 11/09/18 08:23; Admin Dose 2 MG; Start 10/27/18 at 09:00 Atorvastatin Calcium (Lipitor) 10 mg DAILY@21 PO Last administered on 11/08/18 21:06; Admin Dose 10 MG; Start 10/27/18 at 21:00 Senna/Docusate Sodium (Senokot-S) 1 tab BID PO Last administered on 11/09/18 0 8:23; Admin Dose 1 TAB; Start 10/27/18 at 21:00 Gabapentin (Neurontin) 400 mg TID PO Last administered on 11/09/18 12:11; Admin Dose 400 MG; Start 10/27/18 at 13:00 Morphine Sulfate (morphine) 2 mg Q2H PRN IV SEVERE PAIN LEVEL 7-10 Last administered on 11/05/18 00:00; Admin Dose 2 MG; Start 10/27/18 at 18:30 Topiramate (Topamax) 25 mg BID PO Last administered on 11/09/18 08:23; Admin Dose 25 MG; Start 10/28/18 at 11:00 Guaifenesin (Mucinex) 600 mg BID PO Last administered on 11/09/18 08:22; Admin Dose 600 MG; Start 10/28/18 at 14:00 Magnesium Oxide (Mag-Ox 400) 400 mg BID PO Last administered on 11/09/18 08:23; Admin Dose 400 MG; Start 10/29/18 at 21:00 Tamsulosin HCl (Flomax) 0.4 mg HS PO Last administered on 11/08/18 21:16; Admin Dose 0.4 MG; Start 10/29/18 at 21:00 Levalbuterol (Xopenex Neb) 1.25 mg Q3H RESP THERAPY PRN HHN Shortness of breath; Start 10/30/18 at 23:30 Ipratropium [place] (Atrovent 0.02% (Neb)) 0.5 mg Q3H RESP THERAPY PRN HHN SHORTNESS OF BREATH Last administered on 11/02/18 01:00; Admin Dose 0.5 MG; Start 10/30/18 at 23:30 Levalbuterol (Xopenex Neb) 0.63 mg Q8H RESP THERAPY HHN Last administered on 11/08/18 16:09; Admin Dose 0.63 MG; Start 10/31/18 at 16:00 Clonazepam (Klonopin) 1 mg BID PO Last administered on 11/09/18 08:22; Admin Dose 1 MG; Start 11/03/18 at 21:00 Levofloxacin (Levaquin) 750 mg Q48H PO Last administered on 11/07/18 18:38; Ad min Dose 750 MG; Start 11/07/18 at 16:00 Sodium Chloride 1,000 ml @ 50 mls/hr Q20H IV Last administered on 11/09/18 08:45; Admin Dose 50 MLS/HR; Start 11/09/18 at 08:30 Loratadine (Claritin) 10 mg DAILY PO Last administered on 11/09/18 12:10; Admin Dose 10 MG; Start 11/09/18 at 11:00 GAUDENCIO SANDERS MD November 09, 2018 14:49
[2018-11-09] MEDS ORDERED: SOD CHLORIDE 0.9% 500 ML ONE (14:59)
[2018-11-09] MEDS ORDERED: IODIXANOL LOCM 50 ML BTL ONE (14:59)
[2018-11-09] MEDS ORDERED: LIDOCAINE 1%/EPI (1:100,000) (MDV) 20 ML ONE (14:59)
[2018-11-09] MEDS ORDERED: SOD CHLORIDE 0.9% 500 ML IV ONE (15:00)
[2018-11-09] MEDS ORDERED: CEFAZOLIN 1 GM/50 ML (PMX) 100 ML IVPB ONE (15:15)
[2018-11-09] MEDS ORDERED: FENTAnyl 50 MCG/ML VIAL ONE (15:19)
[2018-11-09] MEDS ORDERED: MIDAZOLAM 1 MG/ML 2 ML INJ ONE (15:19)
[2018-11-09] MEDS ORDERED: LIDOCAINE 2% (SDV) 5 ML INJ ONE (15:20)
[2018-11-09] MEDS ORDERED: PROPOFOL 40 ML ONE (15:20)
--- NOTE | 2018-11-09 15:28 | PREAC ---
Date/Time of Note Date/Time of Note DATE: 11/09/18 TIME: 15:25 Anesthesia Eval and Record Evaluation Time Pre-Procedure Interview DATE: 11/09/18 TIME: 15:25 Age 68 Sex male NPO: 8 hrs Preoperative diagnosis Bradycardia Planned procedure Pacemaker placement Past Medical History Past Medical History: Includes Cardio: HTN, Dyslipidemia, CAD, Arrythmia Pulm: COPD GI: GERD Surgery & Anesthesia Issues No known issue Meds Anticoagulation: No Beta Marcel within 24 hr: No Reason Beta Marcel not given: Pt. not on B-Marcel Active Scripts Metronidazole (Flagyl) 500 Mg Tab, 500 MG PO Q8 for 7 Days, TAB Prov:TESS HALL MD 06/02/18 Levofloxacin* (Levaquin*) 750 Mg Tablet, 750 MG PO DAILY for 7 Days, TAB Prov:TESS HALL MD 06/02/18 Reported Medications [Docusate 8.6 Mg] No Conflict Check, 8.6 TAB BID 10/27/18 Cholecalciferol* (Vitamin D3*) 1,000 Unit Tablet, 1000 UNIT PO DAILY, TAB 10/27/18 Amlodipine Besylate* (Amlodipine Besylate*) 2.5 Mg Tablet, 5 MG PO DAILY, #30 TAB 10/27/18 Doxycycline Monohydrate* (Doxycycline Monohydrate*) 100 Mg Tablet, 100 MG PO BID, TAB 10/27/18 Tamsulosin Hcl* (Flomax*) 0.4 Mg Cap.er.24h, 0.8 MG PO DAILY, CAP 10/27/18 Ropinirole Hcl* (Ropinirole Hcl*) 0.25 Mg Tablet, 0.25 MG PO TID, TAB 10/27/18 Gabapentin* (Gabapentin*) 300 Mg Capsule, 300 MG PO TID, #90 CAP 10/27/18 Duloxetine Hcl* (Duloxetine Hcl*) 60 Mg Capsule.dr, 120 MG PO DAILY, #30 CAP 10/27/18 Simvastatin* (Zocor*) 20 Mg Tablet, 20 MG PO QHS, #30 TAB 06/02/18 Risperidone* (Risperidone*) 2 Mg Tablet, 2 MG PO BID, TAB 06/02/18 Omeprazole* (Omeprazole*) 20 Mg Capsule.dr, 20 MG PO DAILY, #30 CAP 06/02/18 Clonazepam* (Klonopin*) 1 Mg Tablet, 1 MG PO DAILY PRN for ANXIETY, TAB 2 TABS IN THE MORNING 1 TAB ON LUNCH AND EVENING 2 TABS AT BEDTIME 06/02/18 Current Medications IV Flush (NS 3 ml) 3 ml PER PROTOCOL IV ; Start 10/27/18 at 00:00 Ondansetron HCl (Zofran Tab) 4 mg Q6H PRN PO NAUSEA/VOMITING; Start 10/27/18 at 00:00 Acetaminophen (Tylenol Tab) 650 mg Q6H PRN PO .PAIN 1-3 OR TEMP Last administered on 10/29/18 08:42; Admin Dose 650 MG; Start 10/27/18 at 00:00 Docusate Sodium (Colace) 100 mg Q12H PRN PO .CONSTIPATION Last administered on 11/06/18 05:39; Admin Dose 100 MG; Start 10/27/18 at 00:00 Bisacodyl (Dulcolax) 5 mg DAILY PRN PO .CONSTIPATION Last administered on 11/06/18 05:39; Admin Dose 5 MG; Start 10/27/18 at 00:00 Tramadol HCl (Ultram) 50 mg Q6H PRN PO MODERATE PAIN LEVEL 4-6 Last administered on 11/08/18 23:21; Admin Dose 50 MG; Start 10/27/18 at 03:30 Hydralazine HCl (Apresoline) 10 mg Q4H PRN IV HYPERTENSION Last administered on 10/27/18 05:07; Admin Dose 10 MG; Start 10/27/18 at 05:00 Amlodipine Besylate (Norvasc) 5 mg DAILY PO Last administered on 11/09/18 08:23; Admin Dose 5 MG; Start 10/27/18 at 09:00 Cholecalciferol (Vitamin D) 1,000 unit DAILY PO Last administered on 11/09/18 08:22; Admin Dose 1,000 UNIT; Start 10/27/18 at 09:00 Duloxetine HCl (Cymbalta) 120 mg DAILY PO Last administered on 11/09/18 08:23; Admin Dose 120 MG; Start 10/27/18 at 09:00 Risperidone (Risperdal) 2 mg BID PO Last administered on 11/09/18 08:23; Admin Dose 2 MG; Start 10/27/18 at 09:00 Atorvastatin Calcium (Lipitor) 10 mg DAILY@21 PO Last administered on 11/08/18 21:06; Admin Dose 10 MG; Start 10/27/18 at 21:00 Senna/Docusate Sodium (Senokot-S) 1 tab BID PO Last administered on 11/09/18 08:23; Admin Dose 1 TAB; Start 10/27/18 at 21:00 Gabapentin (Neurontin) 400 mg TID PO Last administered on 11/09/18 12:11; Admin Dose 400 MG; Start 10/27/18 at 13:00 Morphine Sulfate (morphine) 2 mg Q2H PRN IV SEVERE PAIN LEVEL 7-10 Last administered on 11/05/18 00:00; Admin Dose 2 MG; Start 10/27/18 at 18:30 Topiramate (Topamax) 25 mg BID PO Last administered on 11/09/18 08:23; Admin Dose 25 MG; Start 10/28/18 at 11:00 Guaifenesin (Mucinex) 600 mg BID PO Last administered on 11/09/18 08:22; Admin Dose 600 MG; Start 10/28/18 at 14:00 Magnesium Oxide (Mag-Ox 400) 400 mg BID PO Last administered on 11/09/18 08:23; Admin Dose 400 MG; Start 10/29/18 at 21:00 Tamsulosin HCl (Flomax) 0.4 mg HS PO Last administered on 11/08/18 21:16; Admin Dose 0.4 MG; Start 10/29/18 at 21:00 Levalbuterol (Xopenex Neb) 1.25 mg Q3H RESP THERAPY PRN HHN Shortness of breath; Start 10/30/18 at 23:30 Ipr[address] [place] (Atrovent 0.02% (Neb)) 0.5 mg Q3H RESP THERAPY PRN HHN SHORTNESS OF BREATH Last administered on 11/02/18 01:00; Admin Dose 0.5 MG; Start 10/30/18 at 23:30 Levalbuterol (Xopenex Neb) 0.63 mg Q8H RESP THERAPY HHN Last administered on 11/08/18 16:09; Admin Dose 0.63 MG; Start 10/31/18 at 16:00 Clonazepam (Klonopin) 1 mg BID PO Last administered on 5/3/19at 08:22; Admin Dose 1 MG; Start 11/03/18 at 21:00 Levofloxacin (Levaquin) 750 mg Q48H PO Last administered on 11/07/18at 18:38; Admin Dose 750 MG; Start 11/07/18 at 16:00 Sodium Chloride 1,000 ml @ 50 mls/hr Q20H IV Last administered on 11/09/18at 08:45; Admin Dose 50 MLS/HR; Start 11/09/18 at 08:30 Loratadine (Claritin) 10 mg DAILY PO Last administered on 11/09/18at 12:10; Admin Dose 10 MG; Start 11/09/18 at 11:00 Sodium Chloride 500 ml @ 500 mls/hr Q1H ONCE IV Last administered on 11/09/18at 14:56; Admin Dose 500 MLS/HR; Start 11/09/18 at 15:00; Stop 11/09/18 at 15:59 Meds reviewed: Yes Allergies Coded Allergies: No Known Allergies (Verified Allergy, Unknown, 06/02/18) Allergies Reviewed: Yes Labs/Studies Labs Reviewed: Reviewed by anesthesiologist Result Diagram: 11/09/18 0608 11/09/18 0608 Laboratory Tests 11/09/18 06:08 test: N/A Studies: ECG Pre-procedure Exam Last vitals Vital Signs Date Temp Pulse Resp B/P (MAP) Pulse Ox O2 O2 Flow FiO2 Time Delivery Rate 11/09/18 74 12:08 11/09/18 98.5 19 96/58 (71) 94 Nasal 10:57 Cannula 11/09/18 3.0 08:44 11/06/18 21 00:56 Airway: Adequate mouth opening, Adequate thyromental dist Mallampati: Mallampati III Teeth: Normal Lung: Normal Heart: Abnormal (Bradyarrhythmia) ASA Physical Status ASA physical status: 4 Emergency: None Planned Anesthetic General/MAC: MAC Planned Pain Management Parenteral pain med Pre-operative Attestations Prior to commencing anesthesia and surgery, the patient was re-evaluated, there was verification of: *The patient's identity *The results of appropriate recent lab work and preoperative vital signs *The above evaluation not changing prior to induction *Anesthetic plan, risk benefits, alternative and complications discussed with patient/family; questions answered; patient/family understands, accepts and wishes to proceed. GUME BETTS MD November 09, 2018 15:28
--- NOTE | 2018-11-09 16:09 | RADRPT ---
Echocardiogram Report Patient Name: Acacia DICKSON ID: [id number] : 1950 (68y 5m)Study Date: 11/09/2018 7:21:09 AM Gender: MAccession #: [id number] Tech: Guille Jarrett [facility] Location: [facility] Ref.Physician: MONSERRAT BAKER Height(Cm): BSA: Weight(Kg): Quality: AdequateAccount #: Procedures: Echocardiographic Report: Transthoracic echocardiogram with complete 2D, M-Mode, and doppler examination. Indications: Bradycardia. Measurements: 2D/M Mode Doppler Measurement Value Normal Range Measurement Value Normal Range LVIDd 2D 5.1 [ 4.2 - 5.8 ] cm AV Peak Marty 1.0 [ 100.0 - 170.0 ] cm/sec LVIDs 2D 2.7 [ 2.5 - 4.0 ] cm AV Peak PG 4.0 [ 2.0 - 9.0 ] mmHg LVPWd 2D 1.2 [ 0.6 - 1.0 ] cm LVOT Peak Marty 0.7 [ 70.0 - 110.0 ] cm/sec IVSd 2D 1.2 [ 0.6 - 1.0 ] cm LVOT Peak PG 2.0 [ 2.0 - 6.0 ] mmHg AoR Diam 2D 2.8 [ 2.6 - 3.4 ] cm MV E Peak Marty 0.6 [ 60.0 - 130.0 ] cm/sec EDV 2D 122.0 [ 62.0 - 150.0 ] ml MV Decel Time 303 [ 104 - 258 ] msec ESV 2D 25.8 [ 21.0 - 61.0 ] ml Lat E` Marty 0.2 [ 10.0 - 15.0 ] cm/sec EF 2D 78.9 [ 52.0 - 72.0 ] percent Lateral E/E` 3.9 [ 1.0 - 2.0 ] ratio LA Dimen 2D 2.9 [ 3.0 - 4.0 ] cm Findings: Left Ventricle: Normal left ventricular cavity size. Mild concentric left ventricular hypertrophy. Mild global left ventricular systolic dysfunction. Ejection fraction is visually estimated at 55 %. Tissue Doppler/Mitral Doppler indices are consistent with impaired relaxation (Stage I diastolic dysfunction). Right Ventricle: Normal right ventricular size. Normal right ventricular systolic function. Left Atrium: The left atrium is normal in size. Right Atrium: The right atrium is normal in size. Mitral Valve: Normal appearance and function of the mitral valve with trace physiologic regurgitation. Aortic Valve: Normal appearance of the aortic valve. No significant aortic stenosis or insufficiency. Tricuspid Valve: Normal appearance of the tricuspid valve. Unable to obtain RVSP due to minimal presence of tricuspid regurgitation. Pulmonic Valve: Pulmonic valve not well visualized. Pericardium: Normal pericardium with no significant pericardial effusion. Aorta: Normal aortic root. IVC: Normal size and normal respiratory collapse consistent with normal right atrial pressure. Conclusions: Technically difficult study due to poor apical windows. Mild concentric left ventricular hypertrophy with normal systolic function. Grade 1 diastolic dysfunction. Trace mitral regurgitation. Electronically Signed By: Monserrat Baker 2018-11-09 16:08:53 PDT
--- NOTE | 2018-11-09 16:43 | OPR ---
Date/Time of Note Date/Time of Note DATE: 11/09/18 TIME: 16:40 Operative Report Procedure Date: November 09, 2018 Preoperative Diagnosis Sinus syndrome Postoperative Diagnosis Sick sinus Operation/Procedure Performed PPM Surgeon see signature line Medical Transcription Editor MAYO Anesthesia Type: moderate sedation Anesthesiologist: GUME BTETS MD Estimated Blood Loss: minimal Transfusion none Specimen NONE Grafts/Implants none Complications none Procedure Description Procedure performed: Permanent pacemaker placement using a St-Jack MRI compatible device fluoroscopy and supervision Intracardiac electrocardiogram Indication: Sick sinus syndrome Anesthesia: Per anesthesiologist Hand Sewer: Gaudencio Arana MD Procedure in detail: Written informed consent was obtained after risks benefits and alternatives discussed with the patient and family in detail. Risks including but not limited to risk of infection, bleeding complications, anesthesia related complications, [place], CVA, perforation, pneumothorax hemothorax, etc discussed with pt in detail. Patient was brought into into the Mesh Worker and placed in supine position. sedation was given. [] Left chest area was prepped and draped in regular sterile fashion. Left subclavian venogram was performed that showed patent subclavian vein and a small cephalic vein. AC groove area was anesthetized using 1% lidocaine with epi. A 3 cm incision was made in the AC groove area. Blunt dissection was carried out. Cephalic vein was seen and isolated but it was too small to be able to cannulated. Then with assist in the fluoroscopy left subclavian vein was cannulated and a wire was advanced through into the inferior vena cava. Micropuncture sheath was placed over it. Wire was removed and a J-wire was advanced through it. Then the micropuncture sheath was removed and an 6 Maori sheath was placed over into the vein. Then, another J-wire into the sheet. The sheath was removed again and a new sheath was placed over the wire into the vein. RV lead was advanced under direct fluoroscopy and placed in the right ventricular low septum . Once a good position was found, threshold was checked which showed excellent threshold. It was screwed into place and threshold were checked again which showed good injury pattern and no diaphragmatic stimulation at 10 V an excellent thresholds. Then the sheath was peeled away. Another 6 Maori sheath was placed over the second wire into the cephalic vein into the subclavian vein. Right atrial lead was advanced under direct fluoroscopy and placed into the right atrial appendage. Once a good position was found it was screwed into place. Thresholds were checked again which showed excellent injury pattern and no diaphragmatic assimilation at 10 V and good thresholds. Right atrial lead sheath was removed. Both leads were tied down using 0 Ethibond suture. Pocket was irrigated with antibiotic solution. The lead was checked again which showed good thresholds. Then leads were connected into the device. Device was placed into the pocket and sutured using 0 Ethibond suture. Wound was closed with 1 layer of 2.0 Vicryl and 2 layers of 3.0 Vicryl. Steri- Strip was applied and pressure dressing was applied. Patient tolerated procedure well with no complication and was transferred to the recovery room in stable condition. Immediate complication: none Please see physical chart for details regarding pacemaker information and thresholds. Conclusions: Successful implantation of dual-chamber permanent pacemaker GAUDENCIO ARANA MD [facility] GAUDENCIO ARANA MD November 09, 2018 16:43
--- NOTE | 2018-11-09 17:04 | PAC ---
Date/Time of Note Date/Time of Note DATE: 11/09/18 TIME: 17:03 Post-Anesthesia Notes Post-Anesthesia Note Last documented vital signs Vital Signs Date Temp Pulse Resp B/P (MAP) Pulse Ox O2 O2 Flow FiO2 Time Delivery Rate 11/09/18 74 12:08 11/09/18 98.5 19 96/58 (71) 94 Nasal 10:57 Cannula 11/09/18 3.0 08:44 11/06/18 21 00:56 Activity: WNL Respiratory function: WNL Cardiovascular function: WNL Mental status: Baseline Pain reasonably controlled: Yes Hydration appropriate: Yes Nausea/Vomiting absent: Yes Comments BP:134/66, P:70, Spo2:100%, T:98,9 GUME BETTS MD November 09, 2018 17:04
[2018-11-09] MEDS ORDERED: ONDANSETRON 4 MG INJ IV PRN (17:30)
[2018-11-09] MEDS ORDERED: HYDROmorphONE 1 MG/5 ML IV SYRINGE IV PRN ×2 (17:30)
[2018-11-09] MEDS ORDERED: FENTAnyl 50 MCG/ML VIAL IV PRN (17:30)
[2018-11-09] MEDS ORDERED: METOCLOPRAMIDE 10 MG INJ IV PRN (17:30)
[2018-11-09] MEDS ORDERED: DIPHENHYDRAMINE 50 MG INJ IV PRN (17:30)
[2018-11-09] MEDS ORDERED: MEPERIDINE 25 MG INJ IV PRN (17:30)
[2018-11-09] MEDS: LEVOFLOXACIN 750 MG TABLET PO SCH (18:08)
[2018-11-09] MEDS: ATORVASTATIN 10 MG TAB PO SCH (20:29)
[2018-11-09] MEDS: TAMSULOSIN (SR) 0.4 MG CAP PO SCH (20:30)
[2018-11-09] MEDS: CEFAZOLIN 1 GM/50 ML (PMX) 50 ML IVPB SCH (21:17)
[2018-11-09] MEDS: morphine 2 MG INJ IV PRN (21:18)
[2018-11-10] VITALS (12 sets, daily range): BP systolic 127–171; BP diastolic 64–88; PULSE 63–96; RESP 18–20
[2018-11-10] MEDS: morphine 2 MG INJ IV PRN ×4 (00:06→23:23)
[2018-11-10] MEDS: CEFAZOLIN 1 GM/50 ML (PMX) 50 ML IVPB SCH ×2 (05:28→14:16)
[2018-11-10] MEDS: SOD CHLORIDE 0.9% 1,000 ML IV SCH (05:29)
[2018-11-10] MEDS: hydrALAzine 20 MG INJ IV PRN (05:49)
[2018-11-10] MEDS: ACETAMINOPHEN 325 MG TAB PO PRN ×2 (05:49→23:23)
[2018-11-10] MEDS: LEVALBUTEROL (NEB) 0.63 MG/3 ML AMP HHN SCH ×4 (08:00→22:00)
[2018-11-10] MEDS: GABAPENTIN 400 MG CAP PO SCH ×3 (09:24→20:39)
[2018-11-10] MEDS: GUAIFENESIN LA 600 MG TABSR PO SCH ×2 (09:24→20:38)
[2018-11-10] MEDS: clonAZEPAM 0.5 MG TAB PO SCH ×2 (09:24→20:39)
[2018-11-10] MEDS: CHOLECALCIFEROL 1,000 UNIT TAB PO SCH (09:24)
[2018-11-10] MEDS: DULOXETINE 30 MG CAP DR PO SCH (09:24)
[2018-11-10] MEDS: SENNA/DOCUSATE NA (8.6MG/50MG) TAB PO SCH ×2 (09:25→20:38)
[2018-11-10] MEDS: RISPERIDONE 2 MG TAB PO SCH ×2 (09:25→20:38)
[2018-11-10] MEDS: MAGNESIUM OXIDE 400 MG TAB PO SCH ×2 (09:25→20:39)
[2018-11-10] MEDS: AMLODIPINE 2.5 MG TAB PO SCH (09:25)
[2018-11-10] MEDS: TOPIRAMATE 25 MG TAB PO SCH ×2 (09:25→20:39)
[2018-11-10] MEDS: LORATADINE 10 MG TAB PO SCH (09:26)
--- NOTE | 2018-11-10 11:24 | CONS ---
Assessment/Plan Assessment/Plan Hospital Course (Demo Recall) 1. Nonoliguric acute kidney injury on top of chronic kidney disease stage IIIB/IV with previous baseline creatinine of 2.5 mg/dL. Etiology of acute kidney injury is secondary to hemodynamics. cont on gentle IV hydration for fluid challenge. We will continue current medical management, supportive care, renally dose all medications. 2. Hypernatremia, improved. Continue to encourage free water intake. 3. Anemia. Continue to monitor hemoglobin and hematocrit levels. 4. Mineral bone disorder, monitor calcium and phosphorus levels. 5. Acute hypoxemic respiratory failure secondary to pneumonia. The patient is clinically improving. Continue to monitor. 6. Arrhythmia. The patient is pending pacemaker placement. Continue to monitor. 7. Benign prostatic hypertrophy. Continue Flomax. 8. Schizophrenia, bipolar disorder. Continue medical management. 9. History of hepatitis C. Consultation Date/Type/Reason Admit Date/Time Oct 27, 2018 at 10:52 Initial Consult Date 10/27/18 Type of Consult nephrology Requesting Provider: BALTAZAR BAKER Date/Time of Note DATE: 11/10/18 TIME: 11:23 24 HR Interval Summary Free Text/Dictation pt on gentle hydration denies shortness of breath or nv d/w rn gen nad cv rrr pulm ctab abd soft, nd, nt +bs ext: no edema Exam/Review of Systems Exam Vitals Vital Signs Date Temp Pulse Resp B/P (MAP) Pulse Ox O2 O2 Flow FiO2 Time Delivery Rate 11/10/18 97.8 82 18 133/64 92 Room Air 11:12 (87) 11/10/18 21 00:40 11/09/18 2.0 18:03 Intake and Output 11/09/18 11/09/18 11/10/18 1414:59 22:59 06:59 IntakeIntake Total 480 ml 1310 ml 2150 ml OutputOutput Total 1350 ml 1250 ml BalanceBalance 480 ml -40 ml 900 ml Results Result Diagram: 11/10/18 0740 11/10/18 0601 Results 24hrs Laboratory Tests Test 11/10/18 06:01 11/10/18 07:40 Sodium Level 141 Potassium Level 4.8 Chloride Level 112 H Carbon Dioxide Level 19 L Anion Gap 10 Blood Urea Nitrogen 47 H Creatinine 2.77 H Est Glomerular Filtrat Rate mL/min 23 L Glucose Level 90 Calcium Level 9.1 Phosphorus Level 4.4 Magnesium Level 2.4 White Blood Count 5.8 # Red Blood Count 3.76 L Hemoglobin 12.0 L Hematocrit 34.2 L Mean Corpuscular Volume 91.0 Mean Corpuscular Hemoglobin 31.9 Mean Corpuscular Hemoglobin Concent 35.1 Red Cell Distribution Width 12.0 Platelet Count 125 L Mean Platelet Volume 9.8 Immature Granulocytes % 1.200 H Neutrophils % 72.8 Lymphocytes % 16.9 Monocytes % 6.7 Eosinophils % 2.1 Basophils % 0.3 Nucleated Red Blood Cells % 0.0 Immature Granulocytes # 0.070 H Neutrophils # 4.2 Lymphocytes # 1.0 Monocytes # 0.4 Eosinophils # 0.1 Basophils # 0.0 Nucleated Red Blood Cells # 0.0 Medications Medication Current Medications IV Flush (NS 3 ml) 3 ml PER PROTOCOL IV ; Start 10/27/18 at 00:00 Ondansetron HCl (Zofran Tab) 4 mg Q6H PRN PO NAUSEA/VOMITING; Start 10/27/18 at 00:00 Acetaminophen (Tylenol Tab) 650 mg Q6H PRN PO .PAIN 1-3 OR TEMP Last administered on 11/10/18 05:49; Admin Dose 650 MG; Start 10/27/18 at 00:00 Docusate Sodium (Colace) 100 mg Q12H PRN PO .CONSTIPATION Last administered on 11/06/18 05:39; Admin Dose 100 MG; Start 10/27/18 at 00:00 Bisacodyl (Dulcolax) 5 mg DAILY PRN PO .CONSTIPATION Last administered on 11/06/18 05:39; Admin Dose 5 MG; Start 10/27/18 at 00:00 Tramadol HCl (Ultram) 50 mg Q6H PRN PO MODERATE PAIN LEVEL 4-6 Last administered on 11/08/18 23:21; Admin Dose 50 MG; Start 10/27/18 at 03:30 Hydralazine HCl (Apresoline) 10 mg Q4H PRN IV HYPERTENSION Last administered on 11/10/18 05:49; Admin Dose 10 MG; Start 10/27/18 at 05:00 Amlodipine Besylate (Norvasc) 5 mg DAILY PO Last administered on 11/10/18 09:25; Admin Dose 5 MG; Start 10/27/18 at 09:00 Cholecalciferol (Vitamin D) 1,000 unit DAILY PO Last administered on 11/10/18 09:24; Admin Dose 1,000 UNIT; Start 10/27/18 at 09:00 Duloxetine HCl (Cymbalta) 120 mg DAILY PO Last administered on 11/10/18 09:24; Admin Dose 120 MG; Start 10/27/18 at 09:00 Risperidone (Risperdal) 2 mg BID PO Last administered on 11/10/18:25; Admin Dose 2 MG; Start 10/27/18 at 09:00 Atorvastatin Calcium (Lipitor) 10 mg DAILY@21 PO Last administered on 11/09/18 20:29; Admin Dose 10 MG; Start 10/27/18 at 21:00 Senna/Docusate Sodium (Senokot-S) 1 tab BID PO Last administered on 11/10/18:25; Admin Dose 1 TAB; Start 10/27/18 at 21:00 Gabapentin (Neurontin) 400 mg TID PO Last administered on 11/10/18:24; Admin Dose 400 MG; Start 10/27/18 at 13:00 Topiramate (Topamax) 25 mg BID PO Last administered on 11/10/18:25; Admin Dose 25 MG; Start 10/28/18 at 11:00 Guaifenesin (Mucinex) 600 mg BID PO Last administered on 11/10/18:24; Admin Dose 600 MG; Start 10/28/18 at 14:00 Magnesium Oxide (Mag-Ox 400) 400 mg BID PO Last administered on 11/10/18:25; Admin Dose 400 MG; Start 10/29/18 at 21:00 Tamsulosin HCl (Flomax) 0.4 mg HS PO Last administered on 11/09/18 20:30; Admin Dose 0.4 MG; Start 10/29/18 at 21:00 Levalbuterol (Xopenex Neb) 1.25 mg Q3H RESP THERAPY PRN HHN Shortness of breath; Start 10/30/18 at 23:30 Ipratropium [place] (Atrovent 0.02% (Neb)) 0.5 mg Q3H RESP THERAPY PRN HHN SHORTNESS OF BREATH Last administered on 11/02/18 01:00; Admin Dose 0.5 MG; Start 10/30/18 at 23:30 Levalbuterol (Xopenex Neb) 0.63 mg Q8H RESP THERAPY HHN Last administered on 11/08/18 16:09; Admin Dose 0.63 MG; Start 10/31/18 at 16:00 Clonazepam (Klonopin) 1 mg BID PO Last administered on 11/10/18 09:24; Admin Dose 1 MG; Start 11/03/18 at 21:00 Levofloxacin (Levaquin) 750 mg Q48H PO Last administered on 11/09/18 18:08; Admin Dose 750 MG; Start 11/07/18 at 16:00 Sodium Chloride 1,000 ml @ 50 mls/hr Q20H IV Last administered on 11/10/18 05:29; Admin Dose 50 MLS/HR; Start 11/09/18 at 08:30 Loratadine (Claritin) 10 mg DAILY PO Last administered on 11/10/18 09:26; Admin Dose 10 MG; Start 11/09/18 at 11:00 Morphine Sulfate (morphine) 1 mg Q1H PRN IV SEVERE PAIN 7-10 Last administered on 11/10/18 05:28; Admin Dose 1 MG; Start 11/09/18 at 17:00 Cefazolin Sodium 50 ml @ 100 mls/hr Q8 IVPB Last administered on 11/10/18 05:28; Admin Dose 100 MLS/HR; Start 11/09/18 at 22:00; Stop 11/10/18 at 14:29 NORBERT DAVIS MD November 10, 2018 11:24
--- NOTE | 2018-11-10 11:30 | CONS ---
Assessment/Plan Assessment/Plan Assessment/Plan (Daily) Assessment SSS PPM HTN Psych ILYA Plan no change in cardiac mgt PPM intact No pneumothorax Consultation Date/Type/Reason Admit Date/Time Oct 27, 2018 at 10:52 Initial Consult Date 11/09/18 Type of Consult Cardiology Requesting Provider: BALTAZAR BAKER Date/Time of Note DATE: 11/10/18 TIME: 11:28 24 HR Interval Summary Free Text/Dictation uncomfortable with current gown, no chest pain, no sob, no palpitations Detailed Summary Respiratory: no complaints Cardiovascular: no complaints Gastrointestinal: no complaints Musculoskeletal: no complaints Neurologic: no complaints Exam/Review of Systems Vital Signs Vitals Vital Signs Date Temp Pulse Resp B/P (MAP) Pulse Ox O2 O2 Flow FiO2 Time Delivery Rate 11/10/18 97.8 82 18 133/64 92 Room Air 11:12 (87) 11/10/18 21 00:40 11/09/18 2.0 18:03 Intake and Output 11/09/18 11/09/18 11/10/18 1414:59 22:59 06:59 IntakeIntake Total 480 ml 1310 ml 2150 ml OutputOutput Total 1350 ml 1250 ml BalanceBalance 480 ml -40 ml 900 ml Exam Constitutional: frail Psych: confusion Head: normocephalic, atraumatic Neck: supple Respiratory: clear to auscultation Cardiovascular: regular rate and rhythm Musculoskeletal: nl extremities to inspection Extremities: normal pulses Labs Result Diagram: 11/10/18 0740 11/10/18 0601 Results 24hrs Laboratory Tests Test 11/10/18 06:01 11/10/18 07:40 Sodium Level 141 Potassium Level 4.8 Chloride Level 112 H Carbon Dioxide Level 19 L Anion Gap 10 Blood Urea Nitrogen 47 H Creatinine 2.77 H Est Glomerular Filtrat Rate mL/min 23 L Glucose Level 90 Calcium Level 9.1 Phosphorus Level 4.4 Magnesium Level 2.4 White Blood Count 5.8 # Red Blood Count 3.76 L Hemoglobin 12.0 L Hematocrit 34.2 L Mean Corpuscular Volume 91.0 Mean Corpuscular Hemoglobin 31.9 Mean Corpuscular Hemoglobin Concent 35.1 Red Cell Distribution Width 12.0 Platelet Count 125 L Mean Platelet Volume 9.8 Immature Granulocytes % 1.200 H Neutrophils % 72.8 Lymphocytes % 16.9 Monocytes % 6.7 Eosinophils % 2.1 Basophils % 0.3 Nucleated Red Blood Cells % 0.0 Immature Granulocytes # 0.070 H Neutrophils # 4.2 Lymphocytes # 1.0 Monocytes # 0.4 Eosinophils # 0.1 Basophils # 0.0 Nucleated Red Blood Cells # 0.0 Medications Medications Current Medications IV Flush (NS 3 ml) 3 ml PER PROTOCOL IV ; Start 10/27/18 at 00:00 Ondansetron HCl (Zofran Tab) 4 mg Q6H PRN PO NAUSEA/VOMITING; Start 10/27/18 at 00:00 Acetaminophen (Tylenol Tab) 650 mg Q6H PRN PO .PAIN 1-3 OR TEMP Last administered on 11/10/18 05:49; Admin Dose 650 MG; Start 10/27/18 at 00:00 Docusate Sodium (Colace) 100 mg Q12H PRN PO .CONSTIPATION Last administered on 11/06/18 05:39; Admin Dose 100 MG; Start 10/27/18 at 00:00 Bisacodyl (Dulcolax) 5 mg DAILY PRN PO .CONSTIPATION Last administered on 11/06/18 05:39; Admin Dose 5 MG; Start 10/27/18 at 00:00 Tramadol HCl (Ultram) 50 mg Q6H PRN PO MODERATE PAIN LEVEL 4-6 Last administered on 11/08/18 23:21; Admin Dose 50 MG; Start 10/27/18 at 03:30 Hydralazine HCl (Apresoline) 10 mg Q4H PRN IV HYPERTENSION Last administered on 11/10/18 05:49; Admin Dose 10 MG; Start 10/27/18 at 05:00 Amlodipine Besylate (Norvasc) 5 mg DAILY PO Last administered on 11/10/18 09:25; Admin Dose 5 MG; Start 10/27/18 at 09:00 Cholecalciferol (Vitamin D) 1,000 unit DAILY PO Last administered on 11/10/18 09:24; Admin Dose 1,000 UNIT; Start 10/27/18 at 09:00 Duloxetine HCl (Cymbalta) 120 mg DAILY PO Last administered on 11/10/18 09:24; Admin Dose 120 MG; Start 10/27/18 at 09:00 Risperidone (Risperdal) 2 mg BID PO Last administered on 11/10/18 09:25; Admin Dose 2 MG; Start 10/27/18 at 09:00 Atorvastatin Calcium (Lipitor) 10 mg DAILY@21 PO Last administered on 11/09/18 20:29; Admin Dose 10 MG; Start 10/27/18 at 21:00 Senna/Docusate Sodium (Senokot-S) 1 tab BID PO Last administered on 11/10/18 09:25; Admin Dose 1 TAB; Start 10/27/18 at 21:00 Gabapentin (Neurontin) 400 mg TID PO Last administered on 11/10/18 09:24; Admin Dose 400 MG; Start 10/27/18 at 13:00 Topiramate (Topamax) 25 mg BID PO Last administered on 11/10/18; Admin Dose 25 MG; Start 10/28/18 at 11:00 Guaifenesin (Mucinex) 600 mg BID PO Last administered on 11/10/18 09:24; Admin Dose 600 MG; Start 10/28/18 at 14:00 Magnesium Oxide (Mag-Ox 400) 400 mg BID PO Last administered on 11/10/18 09:25; Admin Dose 400 MG; Start 10/29/18 at 21:00 Tamsulosin HCl (Flomax) 0.4 mg HS PO Last administered on 11/09/18 20:30; Admin Dose 0.4 MG; Start 10/29/18 at 21:00 Levalbuterol (Xopenex Neb) 1.25 mg Q3H RESP THERAPY PRN HHN Shortness of breath; Start 10/30/18 at 23:30 Ipratropium [place] (Atrovent 0.02% (Neb)) 0.5 mg Q3H RESP THERAPY PRN HHN SHORTNESS OF BREATH Last administered on 11/02/18 01:00; Admin Dose 0.5 MG; Start 10/30/18 at 23:30 Levalbuterol (Xopenex Neb) 0.63 mg Q8H RESP THERAPY HHN Last administered on 11/08/18 16:09; Admin Dose 0.63 MG; Start 10/31/18 at 16:00 Clonazepam (Klonopin) 1 mg BID PO Last administered on 11/10/18 09:24; Admin Dose 1 MG; Start 11/03/18 at 21:00 Levofloxacin (Levaquin) 750 mg Q48H PO Last administered on 11/09/18 18:08; Admin Dose 750 MG; Start 11/07/18 at 16:00 Sodium Chloride 1,000 ml @ 50 mls/hr Q20H IV Last administered on 11/10/18 05:29; Admin Dose 50 MLS/HR; Start 11/09/18 at 08:30 Loratadine (Claritin) 10 mg DAILY PO Last administered on 11/10/18 09:26; Admin Dose 10 MG; Start 11/09/18 at 11:00 Morphine Sulfate (morphine) 1 mg Q1H PRN IV SEVERE PAIN 7-10 Last administered on 11/10/18 05:28; Admin Dose 1 MG; Start 11/09/18 at 17:00 Cefazolin Sodium 50 ml @ 100 mls/hr Q8 IVPB Last administered on 11/10/18 05:28; Admin Dose 100 MLS/HR; Start 11/09/18 at 22:00; Stop 11/10/18 at 14:29 JARROD CARMEN MD November 10, 2018 11:30
--- NOTE | 2018-11-10 13:19 | PN ---
Date/Time of Note Date/Time of Note DATE: 11/10/18 TIME: 13:19 Objective Vitals Vital Signs Date Temp Pulse Resp B/P (MAP) Pulse Ox O2 O2 Flow FiO2 Time Delivery Rate 11/10/18 78 12:08 11/10/18 97.8 18 133/64 92 Room Air 11:12 (87) 11/10/18 21 00:40 11/09/18 2.0 18:03 Intake and Output 11/09/18 11/09/18 11/10/18 1515:00 23:00 07:00 IntakeIntake Total 480 ml 1310 ml 2150 ml OutputOutput Total 1350 ml 1250 ml BalanceBalance 480 ml -40 ml 900 ml Results Result Diagram: 11/10/18 0740 11/10/18 0601 Medications Medications Current Medications IV Flush (NS 3 ml) 3 ml PER PROTOCOL IV ; Start 10/27/18 at 00:00 Ondansetron HCl (Zofran Tab) 4 mg Q6H PRN PO NAUSEA/VOMITING; Start 10/27/18 at 00:00 Acetaminophen (Tylenol Tab) 650 mg Q6H PRN PO .PAIN 1-3 OR TEMP Last administered on 11/10/18 05:49; Admin Dose 650 MG; Start 10/27/18 at 00:00 Docusate Sodium (Colace) 100 mg Q12H PRN PO .CONSTIPATION Last administered on 11/06/18 05:39; Admin Dose 100 MG; Start 10/27/18 at 00:00 Bisacodyl (Dulcolax) 5 mg DAILY PRN PO .CONSTIPATION Last administered on 11/06/18 05:39; Admin Dose 5 MG; Start 10/27/18 at 00:00 Tramadol HCl (Ultram) 50 mg Q6H PRN PO MODERATE PAIN LEVEL 4-6 Last administer ed on 11/08/18 23:21; Admin Dose 50 MG; Start 10/27/18 at 03:30 Hydralazine HCl (Apresoline) 10 mg Q4H PRN IV HYPERTENSION Last administered on 11/10/18 05:49; Admin Dose 10 MG; Start 10/27/18 at 05:00 Amlodipine Besylate (Norvasc) 5 mg DAILY PO Last administered on 11/10/18 09:25; Admin Dose 5 MG; Start 10/27/18 at 09:00 Cholecalciferol (Vitamin D) 1,000 unit DAILY PO Last administered on 11/10/18 09:24; Admin Dose 1,000 UNIT; Start 10/27/18 at 09:00 Duloxetine HCl (Cymbalta) 120 mg DAILY PO Last administered on 11/10/18:24; Admin Dose 120 MG; Start 10/27/18 at 09:00 Risperidone (Risperdal) 2 mg BID PO Last administered on 11/10/18:25; Admin Dose 2 MG; Start 10/27/18 at 09:00 Atorvastatin Calcium (Lipitor) 10 mg DAILY@21 PO Last administered on 11/09/18 20:29; Admin Dose 10 MG; Start 10/27/18 at 21:00 Senna/Docusate Sodium (Senokot-S) 1 tab BID PO Last administered on 11/10/18 09:25; Admin Dose 1 TAB; Start 10/27/18 at 21:00 Gabapentin (Neurontin) 400 mg TID PO Last administered on 11/10/18:24; Admin Dose 400 MG; Start 10/27/18 at 13:00 Topiramate (Topamax) 25 mg BID PO Last administered on 11/10/18:25; Admin Dose 25 MG; Start 10/28/18 at 11:00 Guaifenesin (Mucinex) 600 mg BID PO Last administered on 11/10/18 09:24; Admin Dose 600 MG; Start 10/28/18 at 14:00 Magnesium Oxide (Mag-Ox 400) 400 mg BID PO Last administered on 11/10/18 09:25; Admin Dose 400 MG; Start 10/29/18 at 21:00 Tamsulosin HCl (Flomax) 0.4 mg HS PO Last administered on 11/09/18 20:30; Admin Dose 0.4 MG; Start 10/29/18 at 21:00 Levalbuterol (Xopenex Neb) 1.25 mg Q3H RESP THERAPY PRN HHN Shortness of breath; Start 10/30/18 at 23:30 Ipratropium [place] (Atrovent 0.02% (Neb)) 0.5 mg Q3H RESP THERAPY PRN HHN SHORTNESS OF BREATH Last administered on 11/02/18 01:00; Admin Dose 0.5 MG; Start 10/30/18 at 23:30 Levalbuterol (Xopenex Neb) 0.63 mg Q8H RESP THERAPY HHN Last administered on 11/08/18 16:09; Admin Dose 0.63 MG; Start 10/31/18 at 16:00 Clonazepam (Klonopin) 1 mg BID PO Last administered on 11/10/18 09:24; Admin Dose 1 MG; Start 11/03/18 at 21:00 Levofloxacin (Levaquin) 750 mg Q48H PO Last administered on 11/09/18 18:08; Admin Dose 750 MG; Start 11/07/18 at 16:00 Sodium Chloride 1,000 ml @ 50 mls/hr Q20H IV Last administered on 11/10/18 05:29; Admin Dose 50 MLS/HR; Start 11/09/18 at 08:30 Loratadine (Claritin) 10 mg DAILY PO Last administered on 11/10/18 09:26; Admin Dose 10 MG; Start 11/09/18 at 11:00 Morphine Sulfate (morphine) 1 mg Q1H PRN IV SEVERE PAIN 7-10 Last administered on 11/10/18 05:28; Admin Dose 1 MG; Start 11/09/18 at 17:00 Cefazolin Sodium 50 ml @ 100 mls/hr Q8 IVPB Last administered on 11/10/18 05:28; Admin Dose 100 MLS/HR; Start 11/09/18 at 22:00; Stop 11/10/18 at 14:29 VTE Prophylaxis Risk score (from Ns)>0 risk: 6 SCD applied (from Nsg): Yes Lines/Catheters IV Catheter Type: Vargas in Place: Yes Cont'd vargas catheter reason: terminal illness/intractable pain Assessment/Plan Hospital Course Subjective Patient doing okay, no acute complaints, only complains of some surgical site pain of pacemaker Objective Physical exam General: Patient is laying in bed and answers questions appropriately Mentation: Patient is alert and oriented 4, Head: Normocephalic atraumatic Eyes: EOMI, pupils reactive to light Neck: Supple, nontender, midline Respiratory: Clear to auscultation bilaterally Cardiovascular: regular rate, no obvious murmurs Gastrointestinal: non-tender to palpation, bowel sounds heard. Neurological: Moves all extremities spontaneously, mildly weak Skin: Pacemaker site, clean, bandaged ASSESSMENT & PLAN 68-year-old male with comorbidities including CVA, hypertension, hyperlipidemia, CKD, depression, and schizophrenia who was transferred from a longterm facility because of complaint of headache and bradycardia. 1. Bradycardia. Resolving -Status post evaluation by cardiology. -Bradycardia secondary to hypomagnesemia. -Resolved with magnesium repletion. -Started having bradycardia again on 11/08/2018. -Status post reevaluation by cardiology on 11/08/2018 and recommended a pacemaker. -Pacemaker placement done on November 09, 2018, doing well status post pacemaker placement 2. Acute on chronic kidney disease. -Being followed by nephrology. -Use nephrotoxic drugs with caution. 3. Schizophrenia. -Continue mood stabilizers. 4. Prostate hypertrophy. -Continue Flomax. 5. Patchy bilateral pulmonary infiltrates. -Continue treatment for healthcare associated pneumonia. -Switched to oral on 11/07/2018. Will complete an additional week 6. Dyslipidemia. -Continue statins. 7. Hypertension. -Continue antihypertensives. 8. Normocytic, normochromic anemia. -Unknown etiology. -Continue to monitor H&H. 9. Chronic sinusitis. -Stable. 10. Failure to thrive. -PT evaluation. 11. Fluids, electrolytes, and nutrition. -Renal diet. 12. DVT prophylaxis -Subcutaneous heparin. 13. Plan. -Monitor patient on telemetry status post pacemaker, plan to discharge back to longterm facility soon. TESS DAVIS November 10, 2018 13:19
[2018-11-10] MEDS: ATORVASTATIN 10 MG TAB PO SCH (20:38)
[2018-11-10] MEDS: TAMSULOSIN (SR) 0.4 MG CAP PO SCH (20:38)
[2018-11-11] VITALS (10 sets, daily range): BP systolic 114–157; BP diastolic 65–82; PULSE 65–93; RESP 16–20
[2018-11-11] MEDS: SOD CHLORIDE 0.9% 1,000 ML IV SCH ×2 (02:12→22:08)
[2018-11-11] MEDS: morphine 2 MG INJ IV PRN ×9 (06:19→23:28)
[2018-11-11] MEDS: LEVALBUTEROL (NEB) 0.63 MG/3 ML AMP HHN SCH ×2 (08:00→16:00)
[2018-11-11] MEDS: DULOXETINE 30 MG CAP DR PO SCH (08:56)
[2018-11-11] MEDS: SENNA/DOCUSATE NA (8.6MG/50MG) TAB PO SCH ×2 (08:57→20:21)
[2018-11-11] MEDS: GUAIFENESIN LA 600 MG TABSR PO SCH ×2 (08:57→20:22)
[2018-11-11] MEDS: CHOLECALCIFEROL 1,000 UNIT TAB PO SCH (08:57)
[2018-11-11] MEDS: LORATADINE 10 MG TAB PO SCH (08:57)
[2018-11-11] MEDS: clonAZEPAM 0.5 MG TAB PO SCH (08:57)
[2018-11-11] MEDS: RISPERIDONE 2 MG TAB PO SCH ×2 (08:58→20:22)
[2018-11-11] MEDS: AMLODIPINE 2.5 MG TAB PO SCH (08:58)
[2018-11-11] MEDS: MAGNESIUM OXIDE 400 MG TAB PO SCH ×2 (08:58→20:21)
[2018-11-11] MEDS: TOPIRAMATE 25 MG TAB PO SCH ×2 (08:58→20:22)
[2018-11-11] MEDS: GABAPENTIN 400 MG CAP PO SCH ×3 (08:59→20:21)
--- NOTE | 2018-11-11 11:24 | CONS ---
Assessment/Plan Assessment/Plan Hospital Course (Demo Recall) 1. Nonoliguric acute kidney injury on top of chronic kidney disease stage IIIB/IV with previous baseline creatinine of 2.5 mg/dL. Etiology of acute kidney injury is secondary to hemodynamics. cont on gentle IV hydration for fluid challenge. We will continue current medical management, supportive care, renally dose all medications. 2. Hypernatremia, improved. Continue to encourage free water intake. 3. Anemia. Continue to monitor hemoglobin and hematocrit levels. 4. Mineral bone disorder, monitor calcium and phosphorus levels. 5. Acute hypoxemic respiratory failure secondary to pneumonia. The patient is clinically improving. Continue to monitor. 6. Arrhythmia. The patient is pending pacemaker placement. Continue to monitor. 7. Benign prostatic hypertrophy. Continue Flomax. 8. Schizophrenia, bipolar disorder. Continue medical management. 9. History of hepatitis C. Consultation Date/Type/Reason Admit Date/Time Oct 27, 2018 at 10:52 Initial Consult Date 10/27/18 Type of Consult nephrology Requesting Provider: BALATZAR BAKER Date/Time of Note DATE: 11/11/18 TIME: 11:23 24 HR Interval Summary Free Text/Dictation denies shortness of breath or n/v urinating adequately d/w rn gen nad cv rrr pulm ctab abd soft, nd, nt +bs ext: no edema Exam/Review of Systems Exam Vitals Vital Signs Date Temp Pulse Resp B/P (MAP) Pulse Ox O2 O2 Flow FiO2 Time Delivery Rate 11/11/18 98.0 81 20 135/77 94 Room Air 11:01 (96) 11/11/18 2.0 07:45 11/10/18 21 00:40 Intake and Output 11/10/18 11/10/18 11/11/18 1515:00 23:00 07:00 IntakeIntake Total 50 ml 1050 ml 3000 ml OutputOutput Total 1700 ml 1900 ml BalanceBalance 50 ml -650 ml 1100 ml Results Result Diagram: 11/11/18 0602 11/11/18 0602 Results 24hrs Laboratory Tests Test 11/11/18 06:02 White Blood Count 5.2 Red Blood Count 3.75 L Hemoglobin 12.1 L Hematocrit 35.0 L Mean Corpuscular Volume 93.3 Mean Corpuscular Hemoglobin 32.3 Mean Corpuscular Hemoglobin Concent 34.6 Red Cell Distribution Width 12.2 Platelet Count 137 L Mean Platelet Volume 10.0 Immature Granulocytes % 1.000 H Neutrophils % 70.0 Lymphocytes % 19.1 Monocytes % 6.0 Eosinophils % 2.9 Basophils % 1.0 Nucleated Red Blood Cells % 0.0 Immature Granulocytes # 0.050 H Neutrophils # 3.6 Lymphocytes # 1.0 Monocytes # 0.3 Eosinophils # 0.2 Basophils # 0.1 Nucleated Red Blood Cells # 0.0 Sodium Level 142 Potassium Level 4.7 Chloride Level 110 Carbon Dioxide Level 23 Anion Gap 9 Blood Urea Nitrogen 44 H Creatinine 2.77 H Est Glomerular Filtrat Rate mL/min 23 L Glucose Level 93 Calcium Level 9.0 Phosphorus Level 5.0 H Magnesium Level 2.6 H Medications Medication Current Medications IV Flush (NS 3 ml) 3 ml PER PROTOCOL IV ; Start 10/27/18 at 00:00 Ondansetron HCl (Zofran Tab) 4 mg Q6H PRN PO NAUSEA/VOMITING; Start 10/27/18 at 00:00 Acetaminophen (Tylenol Tab) 650 mg Q6H PRN PO .PAIN 1-3 OR TEMP Last administered on 11/10/18 23:23; Admin Dose 650 MG; Start 10/27/18 at 00:00 Docusate Sodium (Colace) 100 mg Q12H PRN PO .CONSTIPATION Last administered on 11/06/18 05:39; Admin Dose 100 MG; Start 10/27/18 at 00:00 Bisacodyl (Dulcolax) 5 mg DAILY PRN PO .CONSTIPATION Last administered on 11/06/18 05:39; Admin Dose 5 MG; Start 10/27/18 at 00:00 Tramadol HCl (Ultram) 50 mg Q6H PRN PO MODERATE PAIN LEVEL 4-6 Last administered on 11/08/18 23:21; Admin Dose 50 MG; Start 10/27/18 at 03:30 Hydralazine HCl (Apresoline) 10 mg Q4H PRN IV HYPERTENSION Last administered on 11/10/18 05:49; Admin Dose 10 MG; Start 10/27/18 at 05:00 Amlodipine Besylate (Norvasc) 5 mg DAILY PO Last administered on 11/11/18 08:58; Admin Dose 5 MG; Start 10/27/18 at 09:00 Cholecalciferol (Vitamin D) 1,000 unit DAILY PO Last administered on 11/11/18 0 8:57; Admin Dose 1,000 UNIT; Start 10/27/18 at 09:00 Duloxetine HCl (Cymbalta) 120 mg DAILY PO Last administered on 11/11/18 08:56; Admin Dose 120 MG; Start 10/27/18 at 09:00 Risperidone (Risperdal) 2 mg BID PO Last administered on 11/11/18 08:58; Admin Dose 2 MG; Start 10/27/18 at 09:00 Atorvastatin Calcium (Lipitor) 10 mg DAILY@21 PO Last administered on 11/10/18 20:38; Admin Dose 10 MG; Start 10/27/18 at 21:00 Senna/Docusate Sodium (Senokot-S) 1 tab BID PO Last administered on 11/11/18 08 :57; Admin Dose 1 TAB; Start 10/27/18 at 21:00 Gabapentin (Neurontin) 400 mg TID PO Last administered on 11/11/18 08:59; Admin Dose 400 MG; Start 10/27/18 at 13:00 Topiramate (Topamax) 25 mg BID PO Last administered on 11/11/18 08:58; Admin Dose 25 MG; Start 10/28/18 at 11:00 Guaifenesin (Mucinex) 600 mg BID PO Last administered on 11/11/18 08:57; Admin Dose 600 MG; Start 10/28/18 at 14:00 Magnesium Oxide (Mag-Ox 400) 400 mg BID PO Last administered on 11/11/18 08:58; Admin Dose 400 MG; Start 10/29/18 at 21:00 Tamsulosin HCl (Flomax) 0.4 mg HS PO Last administered on 11/10/18 20:38; Admin Dose 0.4 MG; Start 10/29/18 at 21:00 Levalbuterol (Xopenex Neb) 1.25 mg Q3H RESP THERAPY PRN HHN Shortness of breath; Start 10/30/18 at 23:30 Ipratropium [place] (Atrovent 0.02% (Neb)) 0.5 mg Q3H RESP THERAPY PRN HHN SHORTNESS OF BREATH Last administered on 11/02/18 01:00; Admin Dose 0.5 MG; St art 10/30/18 at 23:30 Levalbuterol (Xopenex Neb) 0.63 mg Q8H RESP THERAPY HHN Last administered on 11/08/18 16:09; Admin Dose 0.63 MG; Start 10/31/18 at 16:00 Clonazepam (Klonopin) 1 mg BID PO Last administered on 11/11/18 08:57; Admin Dose 1 MG; Start 11/03/18 at 21:00 Levofloxacin (Levaquin) 750 mg Q48H PO Last administered on 11/09/18 18:08; Admin Dose 750 MG; Start 11/07/18 at 16:00 Sodium Chloride 1,000 ml @ 50 mls/hr Q20H IV Last administered on 11/11/18 02:12; Admin Dose 50 MLS/HR; Start 11/09/18 at 08:30 Loratadine (Claritin) 10 mg DAILY PO Last administered on 11/11/18 08:57; Admin Dose 10 MG; Start 11/09/18 at 11:00 Morphine Sulfate (morphine) 1 mg Q1H PRN IV SEVERE PAIN 7-10 Last administered on 11/11/18 10:06; Admin Dose 1 MG; Start 11/09/18 at 17:00 NORBERT DAVIS MD November 11, 2018 11:24
--- NOTE | 2018-11-11 13:05 | PN ---
Date/Time of Note Date/Time of Note DATE: 11/11/18 TIME: 13:04 Objective Vitals Vital Signs Date Temp Pulse Resp B/P (MAP) Pulse Ox O2 O2 Flow FiO2 Time Delivery Rate 11/11/18 74 12:29 11/11/18 98.0 20 135/77 94 Room Air 11:01 (96) 11/11/18 2.0 07:45 11/10/18 21 00:40 Intake and Output 11/10/18 11/10/18 11/11/18 1515:00 23:00 07:00 IntakeIntake Total 50 ml 1050 ml 3000 ml OutputOutput Total 1700 ml 1900 ml BalanceBalance 50 ml -650 ml 1100 ml Results Result Diagram: 11/11/18 0602 11/11/18 0602 Medications Medications Current Medications IV Flush (NS 3 ml) 3 ml PER PROTOCOL IV ; Start 10/27/18 at 00:00 Ondansetron HCl (Zofran Tab) 4 mg Q6H PRN PO NAUSEA/VOMITING; Start 10/27/18 at 00:00 Acetaminophen (Tylenol Tab) 650 mg Q6H PRN PO .PAIN 1-3 OR TEMP Last administered on 11/10/18 23:23; Admin Dose 650 MG; Start 10/27/18 at 00:00 Docusate Sodium (Colace) 100 mg Q12H PRN PO .CONSTIPATION Last administered on 11/06/18 05:39; Admin Dose 100 MG; Start 10/27/18 at 00:00 Bisacodyl (Dulcolax) 5 mg DAILY PRN PO .CONSTIPATION Last administered on 11/06/18 05:39; Admin Dose 5 MG; Start 10/27/18 at 00:00 Tramadol HCl (Ultram) 50 mg Q6H PRN PO MODERATE PAIN LEVEL 4-6 Last administer ed on 11/08/18 23:21; Admin Dose 50 MG; Start 10/27/18 at 03:30 Hydralazine HCl (Apresoline) 10 mg Q4H PRN IV HYPERTENSION Last administered on 11/10/18 05:49; Admin Dose 10 MG; Start 10/27/18 at 05:00 Amlodipine Besylate (Norvasc) 5 mg DAILY PO Last administered on 11/11/18 08:58; Admin Dose 5 MG; Start 10/27/18 at 09:00 Cholecalciferol (Vitamin D) 1,000 unit DAILY PO Last administered on 11/11/18 08:57; Admin Dose 1,000 UNIT; Start 10/27/18 at 09:00 Duloxetine HCl (Cymbalta) 120 mg DAILY PO Last administered on 11/11/18 08:56; Admin Dose 120 MG; Start 10/27/18 at 09:00 Risperidone (Risperdal) 2 mg BID PO Last administered on 11/11/18 08:58; Admin Dose 2 MG; Start 10/27/18 at 09:00 Atorvastatin Calcium (Lipitor) 10 mg DAILY@21 PO Last administered on 11/10/18 20:38; Admin Dose 10 MG; Start 10/27/18 at 21:00 Senna/Docusate Sodium (Senokot-S) 1 tab BID PO Last administered on 11/11/18 08:57; Admin Dose 1 TAB; Start 10/27/18 at 21:00 Gabapentin (Neurontin) 400 mg TID PO Last administered on 11/11/18 08:59; Admin Dose 400 MG; Start 10/27/18 at 13:00 Topiramate (Topamax) 25 mg BID PO Last administered on 11/11/18 08:58; Admin Dose 25 MG; Start 10/28/18 at 11:00 Guaifenesin (Mucinex) 600 mg BID PO Last administered on 11/11/18 08:57; Admin Dose 600 MG; Start 10/28/18 at 14:00 Magnesium Oxide (Mag-Ox 400) 400 mg BID PO Last administered on 11/11/18 08:58; Admin Dose 400 MG; Start 10/29/18 at 21:00 Tamsulosin HCl (Flomax) 0.4 mg HS PO Last administered on 11/10/18 20:38; Admin Dose 0.4 MG; Start 10/29/18 at 21:00 Levalbuterol (Xopenex Neb) 1.25 mg Q3H RESP THERAPY PRN HHN Shortness of breath; Start 10/30/18 at 23:30 Ipratropium [place] (Atrovent 0.02% (Neb)) 0.5 mg Q3H RESP THERAPY PRN HHN SHORTNESS OF BREATH Last administered on 11/02/18 01:00; Admin Dose 0.5 MG; Start 10/30/18 at 23:30 Levalbuterol (Xopenex Neb) 0.63 mg Q8H RESP THERAPY HHN Last administered on 11/08/18 16:09; Admin Dose 0.63 MG; Start 10/31/18 at 16:00 Levofloxacin (Levaquin) 750 mg Q48H PO Last administered on 11/09/18 18:08; Admin Dose 750 MG; Start 11/07/18 at 16:00 Sodium Chloride 1,000 ml @ 50 mls/hr Q20H IV Last administered on 11/11/18 02:12; Admin Dose 50 MLS/HR; Start 11/09/18 at 08:30 Loratadine (Claritin) 10 mg DAILY PO Last administered on 11/11/18 08:57; Admin Dose 10 MG; Start 11/09/18 at 11:00 Morphine Sulfate (morphine) 1 mg Q1H PRN IV SEVERE PAIN 7-10 Last administered on 11/11/18 12:17; Admin Dose 1 MG; Start 11/09/18 at 17:00 Clonazepam (Klonopin) 1 mg BID PRN PO anxiety; Start 11/11/18 at 12:00 VTE Prophylaxis Risk score (from Nsg)>0 risk: 6 SCD applied (from Ns): Yes Lines/Catheters IV Catheter Type: Chambers in Place: No Assessment/Plan Hospital Course Subjective Patient doing even better than yesterday, minimal irritation at pacemaker site, no other complaints, no headache Objective Physical exam General: Patient is laying in bed and answers questions appropriately Mentation: Patient is alert and oriented 4, Head: Normocephalic atraumatic Eyes: EOMI, pupils reactive to light Neck: Supple, nontender, midline Respiratory: Clear to auscultation bilaterally Cardiovascular: regular rate, no obvious murmurs Gastrointestinal: non-tender to palpation, bowel sounds heard. Neurological: Moves all extremities spontaneously, mildly weak Skin: Pacemaker site, clean, bandaged ASSESSMENT & PLAN 68-year-old male with comorbidities including CVA, hypertension, hyperlipidemia, CKD, depression, and schizophrenia who was transferred from a senior living facility because of complaint of headache and bradycardia. 1. Bradycardia. Resolving -Status post evaluation by cardiology. -Bradycardia secondary to hypomagnesemia. -Resolved with magnesium repletion. -Started having bradycardia again on 11/08/2018. -Status post reevaluation by cardiology on 11/08/2018 and recommended a pacemaker. -Pacemaker placement done on November 09, 2018, doing well status post pacemaker placement 2. Acute on chronic kidney disease. -Being followed by nephrology. -Use nephrotoxic drugs with caution. 3. Schizophrenia. -Continue mood stabilizers. 4. Prostate hypertrophy. -Continue Flomax. 5. Patchy bilateral pulmonary infiltrates. -Continue treatment for healthcare associated pneumonia. -Switched to oral on 11/07/2018. Will complete an additional week 6. Dyslipidemia. -Continue statins. 7. Hypertension. -Continue antihypertensives. 8. Normocytic, normochromic anemia. -Unknown etiology. -Continue to monitor H&H. 9. Chronic sinusitis. -Stable. 10. Failure to thrive. -PT evaluation. 11. Fluids, electrolytes, and nutrition. -Renal diet. 12. DVT prophylaxis -Subcutaneous heparin. 13. Plan. -Monitor patient on telemetry status post pacemaker, patient doing well, if no overnight events, will plan for DC back to senior living facility tomorrow as long as case management has confirmed arrangements. TESS DAVIS November 11, 2018 13:05
--- NOTE | 2018-11-11 13:40 | CONS ---
Consultation Date/Type/Reason Admit Date/Time Oct 27, 2018 at 10:52 Initial Consult Date 11/09/18 Type of Consult Cardiology Requesting Provider: BALTAZAR BAKER Date/Time of Note DATE: 11/11/18 TIME: 13:39 24 HR Interval Summary Free Text/Dictation Assessment SSS PPM HTN Psych ILYA Plan no change in cardiac mgt PPM incision C/D/I no events on telemetr Constitutional: no complaints Exam/Review of Systems Vital Signs Vitals Vital Signs Date Temp Pulse Resp B/P (MAP) Pulse Ox O2 O2 Flow FiO2 Time Delivery Rate 11/11/18 74 12:29 11/11/18 98.0 20 135/77 94 Room Air 11:01 (96) 11/11/18 2.0 07:45 11/10/18 21 00:40 Intake and Output 11/10/18 11/10/18 11/11/18 1515:00 23:00 07:00 IntakeIntake Total 50 ml 1050 ml 3000 ml OutputOutput Total 1700 ml 1900 ml BalanceBalance 50 ml -650 ml 1100 ml Exam Constitutional: alert Psych: no complaints Respiratory: clear to auscultation Cardiovascular: regular rate and rhythm Labs Result Diagram: 11/11/18 0602 11/11/18 0602 Results 24hrs Laboratory Tests Test 11/11/18 06:02 White Blood Count 5.2 Red Blood Count 3.75 L Hemoglobin 12.1 L Hematocrit 35.0 L Mean Corpuscular Volume 93.3 Mean Corpuscular Hemoglobin 32.3 Mean Corpuscular Hemoglobin Concent 34.6 Red Cell Distribution Width 12.2 Platelet Count 137 L Mean Platelet Volume 10.0 Immature Granulocytes % 1.000 H Neutrophils % 70.0 Lymphocytes % 19.1 Monocytes % 6.0 Eosinophils % 2.9 Basophils % 1.0 Nucleated Red Blood Cells % 0.0 Immature Granulocytes # 0.050 H Neutrophils # 3.6 Lymphocytes # 1.0 Monocytes # 0.3 Eosinophils # 0.2 Basophils # 0.1 Nucleated Red Blood Cells # 0.0 Sodium Level 142 Potassium Level 4.7 Chloride Level 110 Carbon Dioxide Level 23 Anion Gap 9 Blood Urea Nitrogen 44 H Creatinine 2.77 H Est Glomerular Filtrat Rate mL/min 23 L Glucose Level 93 Calcium Level 9.0 Phosphorus Level 5.0 H Magnesium Level 2.6 H Medications Medications Current Medications IV Flush (NS 3 ml) 3 ml PER PROTOCOL IV ; Start 10/27/18 at 00:00 Ondansetron HCl (Zofran Tab) 4 mg Q6H PRN PO NAUSEA/VOMITING; Start 10/27/18 at 00:00 Acetaminophen (Tylenol Tab) 650 mg Q6H PRN PO .PAIN 1-3 OR TEMP Last administered on 11/10/18 23:23; Admin Dose 650 MG; Start 10/27/18 at 00:00 Docusate Sodium (Colace) 100 mg Q12H PRN PO .CONSTIPATION Last administered on 11/06/18 05:39; Admin Dose 100 MG; Start 10/27/18 at 00:00 Bisacodyl (Dulcolax) 5 mg DAILY PRN PO .CONSTIPATION Last administered on 11/06/18 05:39; Admin Dose 5 MG; Start 10/27/18 at 00:00 Tramadol HCl (Ultram) 50 mg Q6H PRN PO MODERATE PAIN LEVEL 4-6 Last administered on 11/08/18 23:21; Admin Dose 50 MG; Start 10/27/18 at 03:30 Hydralazine HCl (Apresoline) 10 mg Q4H PRN IV HYPERTENSION Last administered on 11/10/18 05:49; Admin Dose 10 MG; Start 10/27/18 at 05:00 Amlodipine Besylate (Norvasc) 5 mg DAILY PO Last administered on 11/11/18 08:58; Admin Dose 5 MG; Start 10/27/18 at 09:00 Cholecalciferol (Vitamin D) 1,000 unit DAILY PO Last administered on 11/11/18 08:57; Admin Dose 1,000 UNIT; Start 10/27/18 at 09:00 Duloxetine HCl (Cymbalta) 120 mg DAILY PO Last administered on 11/11/18 08:56; Admin Dose 120 MG; Start 10/27/18 at 09:00 Risperidone (Risperdal) 2 mg BID PO Last administered on 11/11/18 08:58; Admin Dose 2 MG; Start 10/27/18 at 09:00 Atorvastatin Calcium (Lipitor) 10 mg DAILY@21 PO Last administered on 11/10/18 20:38; Admin Dose 10 MG; Start 10/27/18 at 21:00 Senna/Docusate Sodium (Senokot-S) 1 tab BID PO Last administered on 11/11/18 08:57; Admin Dose 1 TAB; Start 10/27/18 at 21:00 Gabapentin (Neurontin) 400 mg TID PO Last administered on 11/11/18 08:59; Admin Dose 400 MG; Start 10/27/18 at 13:00 Topiramate (Topamax) 25 mg BID PO Last administered on 11/11/18 08:58; Admin Dose 25 MG; Start 10/28/18 at 11:00 Guaifenesin (Mucinex) 600 mg BID PO Last administered on 11/11/18 08:57; Admin Dose 600 MG; Start 10/28/18 at 14:00 Magnesium Oxide (Mag-Ox 400) 400 mg BID PO Last administered on 11/11/18 08:58; Admin Dose 400 MG; Start 10/29/18 at 21:00 Tamsulosin HCl (Flomax) 0.4 mg HS PO Last administered on 11/10/18 20:38; Admin Dose 0.4 MG; Start 10/29/18 at 21:00 Levalbuterol (Xopenex Neb) 1.25 mg Q3H RESP THERAPY PRN HHN Shortness of breath ; Start 10/30/18 at 23:30 Ipratropium [place] (Atrovent 0.02% (Neb)) 0.5 mg Q3H RESP THERAPY PRN HHN SHORTNESS OF BREATH Last administered on 11/02/18 01:00; Admin Dose 0.5 MG; Start 10/30/18 at 23:30 Levalbuterol (Xopenex Neb) 0.63 mg Q8H RESP THERAPY HHN Last administered on 11/08/18 16:09; Admin Dose 0.63 MG; Start 10/31/18 at 16:00 Levofloxacin (Levaquin) 750 mg Q48H PO Last administered on 11/09/18 18:08; Admin Dose 750 MG; Start 11/07/18 at 16:00 Sodium Chloride 1,000 ml @ 50 mls/hr Q20H IV Last administered on 11/11/18 02:12; Admin Dose 50 MLS/HR; Start 11/09/18 at 08:30 Loratadine (Claritin) 10 mg DAILY PO Last administered on 11/11/18at 08:57; Admin Dose 10 MG; Start 11/09/18 at 11:00 Morphine Sulfate (morphine) 1 mg Q1H PRN IV SEVERE PAIN 7-10 Last administered on 11/11/18at 12:17; Admin Dose 1 MG; Start 11/09/18 at 17:00 Clonazepam (Klonopin) 1 mg BID PRN PO anxiety; Start 11/11/18 at 12:00 ARIAN MEYERS MD November 11, 2018 13:40
[2018-11-11] MEDS: LEVOFLOXACIN 750 MG TABLET PO SCH (16:38)
[2018-11-11] MEDS: TAMSULOSIN (SR) 0.4 MG CAP PO SCH (20:21)
[2018-11-11] MEDS: ATORVASTATIN 10 MG TAB PO SCH (20:22)
[2018-11-11] MEDS: traMADol 50 MG TAB PO PRN (20:22)
[2018-11-11] MEDS: clonAZEPAM 0.5 MG TAB PO PRN (20:22)
[2018-11-11] MEDS: ACETAMINOPHEN 325 MG TAB PO PRN (23:28)
[2018-11-12] VITALS (10 sets, daily range): BP systolic 110–135; BP diastolic 56–87; PULSE 59–78; RESP 17–19
[2018-11-12] MEDS: ACETAMINOPHEN 325 MG TAB PO PRN ×2 (05:26→23:10)
[2018-11-12] MEDS: morphine 2 MG INJ IV PRN ×7 (05:26→22:46)
[2018-11-12] MEDS: LEVALBUTEROL (NEB) 0.63 MG/3 ML AMP HHN SCH ×3 (08:00→16:00)
[2018-11-12] MEDS: GUAIFENESIN LA 600 MG TABSR PO SCH ×2 (08:44→21:35)
[2018-11-12] MEDS: LORATADINE 10 MG TAB PO SCH (08:44)
[2018-11-12] MEDS: TOPIRAMATE 25 MG TAB PO SCH ×2 (08:44→21:35)
[2018-11-12] MEDS: RISPERIDONE 2 MG TAB PO SCH ×2 (08:44→21:35)
[2018-11-12] MEDS: AMLODIPINE 2.5 MG TAB PO SCH (08:44)
[2018-11-12] MEDS: SENNA/DOCUSATE NA (8.6MG/50MG) TAB PO SCH ×2 (08:44→21:35)
[2018-11-12] MEDS: DULOXETINE 30 MG CAP DR PO SCH (08:44)
[2018-11-12] MEDS: GABAPENTIN 400 MG CAP PO SCH ×3 (08:44→21:35)
[2018-11-12] MEDS: MAGNESIUM OXIDE 400 MG TAB PO SCH ×2 (08:44→21:35)
[2018-11-12] MEDS: CHOLECALCIFEROL 1,000 UNIT TAB PO SCH (08:44)
[2018-11-12] MEDS: clonAZEPAM 0.5 MG TAB PO PRN ×2 (08:50→22:45)
--- NOTE | 2018-11-12 09:09 | PN ---
DATE: 11/12/2018 SUBJECTIVE: The patient is stable, no events overnight. OBJECTIVE: VITAL SIGNS: Blood pressure is 135/87, pulse 67, respirations 17, temperature 97.6. HEENT: Head is normocephalic. NECK: Supple. HEART: Regular rate. LUNGS: Show diminished breath sounds at the base. ABDOMEN: Soft, nontender to palpation without rebound or guarding. EXTREMITIES: Negative for clubbing, cyanosis, no edema. DERMATOLOGIC: No rashes. MUSCULOSKELETAL: No joint effusion. NEUROLOGIC: No change in exam. MEDICATIONS: Reviewed. LABORATORY DATA: Reviewed. ASSESSMENT AND PLAN: 1. Nonoliguric acute kidney injury on top of chronic kidney disease stage IIIB/IV, with previous bas rachell creatinine of around 2.5 mg/dL. Etiology of acute kidney injury is secondary to hemodynamics. The patient's renal function has been fluctuating. The patient is currently on IV fluid challenge, continue treatment plan, supportive care, renally dose all medicines, deescalate IV fluids. Follow u p renal panel. 2. Hypernatremia, improved. Continue to encourage free water intake. 3. Anemia. Continue to monitor hemoglobin and hematocrit levels. 4. Mineral bone disorder, monitor calcium and phosphorus levels. 5. Acute hypoxemic respiratory failure secondary to pneumonia. The patient is clinically improving. Continue to monitor. 6. Arrhythmia, status post pacemaker. Continue to monitor. 7. Benign prostatic hypertrophy. Continue Flomax. 8. History of schizophrenia, bipolar disorder. Continue to medical management. 9. History of hepatitis C. Dictated By: BELLE ART DO NR/NTS Conf#: [id number] DID#: [id number] CC: ANIYAH KING MD; TESS DAVIS MD; MARY JO PARRY NP;*EndCC*
--- NOTE | 2018-11-12 09:31 | RADRPT ---
Vent Rate: 85 bpm RR Interval: 706 msec OK Interval: [id number] msec QRS Duration: 90 msec QT Interval: 381 msec QTC Interval: 453 msec P-R-T [place]: [id number] - 33 - 74 degrees Atrial flutter vs artifact Anterior infarct, old...Q >40mS, abnormal ST-T, V2-V5 Electronically Signed By: Rob Medina
--- NOTE | 2018-11-12 12:53 | DS ---
Date/Time of Note Date/Time of Note DATE: 11/12/18 TIME: 12:52 Discharge Summary Admission/Discharge Info Admit Date/Time Oct 27, 2018 at 10:52 Discharge Date/Time Patient Condition: Stable Hospital Course Patient is a male with a past medical history significant for CVA, hypertension, dyslipidemia, chronic kidney disease, depression, schizophrenia who originally was transferred from a senior care facility because of headache and bradycardia. Patient's headache resolved and bradycardia was evaluated by cardiology. Patient was eventually deemed a candidate for pacemaker placement due to persistent bradycardia and had pacemaker placed. Patient also was seen by nephrology for his acute on chronic kidney disease and is creatinine level stabilized at around 2.7. Nephrology at this point seems to the patient okay to be discharged to senior care facility with recommendations that repeat creatinine be done in a few days as well as nephrology follow-up as soon as possible. Patient will continue on his other medications for his various medical conditions but will also be continued on a oral Levaquin antibiotic which was initially started for his questionable pneumonia. Patient will need 1 more oral dose of Levaquin 750 mg on November 13, 2018 to complete a one-week course. Patient doing well and has no acute respiratory issues. Patient is to continue all other home medications. Patient will also need to follow-up with cardiology as soon as possible for new pacemaker placement. Discharge diagnosis Bradycardia, resolved status post pacemaker placement Acute on chronic kidney disease, resolving Schizophrenia BPH Questionable pneumonia Dyslipidemia Hypertension Anemia Chronic sinusitis Failure to thrive History of CVA Home Meds Active Scripts Metronidazole (Flagyl) 500 Mg Tab, 500 MG PO Q8 for 7 Days, TAB Prov:TESS HALL MD 06/02/18 Levofloxacin* (Levaquin*) 750 Mg Tablet, 750 MG PO DAILY for 7 Days, TAB Prov:TESS HALL MD 06/02/18 Reported Medications [Docusate 8.6 Mg] No Conflict Check, 8.6 TAB BID 10/27/18 Cholecalciferol* (Vitamin D3*) 1,000 Unit Tablet, 1000 UNIT PO DAILY, TAB 10/27/18 Amlodipine Besylate* (Amlodipine Besylate*) 2.5 Mg Tablet, 5 MG PO DAILY, #30 TAB 10/27/18 Doxycycline Monohydrate* (Doxycycline Monohydrate*) 100 Mg Tablet, 100 MG PO BID, TAB 10/27/18 Tamsulosin Hcl* (Flomax*) 0.4 Mg Cap.er.24h, 0.8 MG PO DAILY, CAP 10/27/18 Ropinirole Hcl* (Ropinirole Hcl*) 0.25 Mg Tablet, 0.25 MG PO TID, TAB 10/27/18 Gabapentin* (Gabapentin*) 300 Mg Capsule, 300 MG PO TID, #90 CAP 10/27/18 Duloxetine Hcl* (Duloxetine Hcl*) 60 Mg Capsule.dr, 120 MG PO DAILY, #30 CAP 10/27/18 Simvastatin* (Zocor*) 20 Mg Tablet, 20 MG PO QHS, #30 TAB 06/02/18 Risperidone* (Risperidone*) 2 Mg Tablet, 2 MG PO BID, TAB 06/02/18 Omeprazole* (Omeprazole*) 20 Mg Capsule.dr, 20 MG PO DAILY, #30 CAP 06/02/18 Clonazepam* (Klonopin*) 1 Mg Tablet, 1 MG PO DAILY PRN for ANXIETY, TAB 2 TABS IN THE MORNING 1 TAB ON LUNCH AND EVENING 2 TABS AT BEDTIME 06/02/18 Primary Care Provider Not On Staff Doctor Time spent on discharge: > 30 minutes TESS DAVIS November 12, 2018 12:52
--- NOTE | 2018-11-12 16:58 | CONS ---
Assessment/Plan Assessment/Plan Hospital Course (Demo Recall) 68 yo with sick sinus rhythm, s/p permanent pacer placement Imp: Sick sinus syndrome, s/p pacer CKD stage 4 Psychiatric issues Recommendations: Follow up with Dr. Arana in one week in the office to check pacer. Consultation Date/Type/Reason Admit Date/Time Oct 27, 2018 at 10:52 Initial Consult Date 10/27/18 Type of Consult Cardiology Requesting Provider: BALTAZAR BAKER Date/Time of Note DATE: 11/12/18 TIME: 16:55 24 HR Interval Summary Free Text/Dictation Feeling well, no pain at pacer site, has not walked much Exam/Review of Systems Vital Signs Vitals Vital Signs Date Temp Pulse Resp B/P (MAP) Pulse Ox O2 O2 Flow FiO2 Time Delivery Rate 11/12/18 77 16:00 11/12/18 98.4 19 129/68 97 15:48 (88) 11/11/18 Room Air 15:20 11/11/18 2.0 07:45 11/10/18 21 00:40 Intake and Output 11/11/18 11/11/18 11/12/18 1515:00 23:00 07:00 IntakeIntake Total 3040 ml 2000 ml OutputOutput Total 3700 ml 2800 ml BalanceBalance -660 ml -800 ml Exam Constitutional: alert, oriented, well developed Psych: nl mood/affect Head: normocephalic, atraumatic Eyes: nl conjunctiva, EOMI, nl lids, nl sclera ENMT: nl external ears & nose Neck: supple; No jvd, No bruits Respiratory: clear to auscultation, normal air movement Cardiovascular: regular rate and rhythm, nl pulses, other (pacer site intact, with steristrips in place); No murmurs/extra sounds Gastrointestinal: soft, nl liver, spleen, non-tender Musculoskeletal: nl extremities to inspection Extremities: No edema Neurological: nl mental status, nl speech Skin: No rash or lesions Labs Result Diagram: 11/11/1802 11/11/18 06 Imaging Imaging telemetry reviewed, NSR, with some atrial pacing Medications Medications Current Medications IV Flush (NS 3 ml) 3 ml PER PROTOCOL IV ; Start 10/27/18 at 00:00 Ondansetron HCl (Zofran Tab) 4 mg Q6H PRN PO NAUSEA/VOMITING; Start 10/27/18 at 00:00 Acetaminophen (Tylenol Tab) 650 mg Q6H PRN PO .PAIN 1-3 OR TEMP Last admi nistered on 11/12/18 05:26; Admin Dose 650 MG; Start 10/27/18 at 00:00 Docusate Sodium (Colace) 100 mg Q12H PRN PO .CONSTIPATION Last administered on 11/06/18 05:39; Admin Dose 100 MG; Start 10/27/18 at 00:00 Bisacodyl (Dulcolax) 5 mg DAILY PRN PO .CONSTIPATION Last administered on 11/06/18 05:39; Admin Dose 5 MG; Start 10/27/18 at 00:00 Tramadol HCl (Ultram) 50 mg Q6H PRN PO MODERATE PAIN LEVEL 4-6 Last administered on 11/11/18 20:22; Admin Dose 50 MG; Start 10/27/18 at 03:30 Hydralazine HCl (Apresoline) 10 mg Q4H PRN IV HYPERTENSION Last administered on 11/10/18 05:49; Admin Dose 10 MG; Start 10/27/18 at 05:00 Amlodipine Besylate (Norvasc) 5 mg DAILY PO Last administered on 11/12/18 08:44; Admin Dose 5 MG; Start 10/27/18 at 09:00 Cholecalciferol (Vitamin D) 1,000 unit DAILY PO Last administered on 11/12/18 08:44; Admin Dose 1,000 UNIT; Start 10/27/18 at 09:00 Duloxetine HCl (Cymbalta) 120 mg DAILY PO Last administered on 11/12/18 08:44; Admin Dose 120 MG; Start 10/27/18 at 09:00 Risperidone (Risperdal) 2 mg BID PO Last administered on 11/12/18 08:44; Admin Dose 2 MG; Start 10/27/18 at 09:00 Atorvastatin Calcium (Lipitor) 10 mg DAILY@21 PO Last administered on 11/11/18 20:22; Admin Dose 10 MG; Start 10/27/18 at 21:00 Senna/Docusate Sodium (Senokot-S) 1 tab BID PO Last administered on 11/12/18 08:44; Admin Dose 1 TAB; Start 10/27/18 at 21:00 Gabapentin (Neurontin) 400 mg TID PO Last administered on 11/12/18 12:28; Admin Dose 400 MG; Start 10/27/18 at 13:00 Topiramate (Topamax) 25 mg BID PO Last administered on 11/12/18 08:44; Admin Dose 25 MG; Start 10/28/18 at 11:00 Guaifenesin (Mucinex) 600 mg BID PO Last administered on 11/12/18 08:44; Admin Dose 600 MG; Start 10/28/18 at 14:00 Magnesium Oxide (Mag-Ox 400) 400 mg BID PO Last administered on 11/12/18 08:44; Admin Dose 400 MG; Start 10/29/18 at 21:00 Tamsulosin HCl (Flomax) 0.4 mg HS PO Last administered on 11/11/18 20:21; Admin Dose 0.4 MG; Start 10/29/18 at 21:00 Levalbuterol (Xopenex Neb) 1.25 mg Q3H RESP THERAPY PRN HHN Shortness of breath; Start 10/30/18 at 23:30 Ipratropium [place] (Atrovent 0.02% (Neb)) 0.5 mg Q3H RESP THERAPY PRN HHN SHORTNESS OF BREATH Last administered on 11/02/18 01:00; Admin Dose 0.5 MG; Start 10/30/18 at 23:30 Levalbuterol (Xopenex Neb) 0.63 mg Q8H RESP THERAPY HHN Last administered on 11/08/18 16:09; Admin Dose 0.63 MG; Start 10/31/18 at 16:00 Levofloxacin (Levaquin) 750 mg Q48H PO Last administered on 11/11/18 16:38; Admin Dose 750 MG; Start 11/07/18 at 16:00 Loratadine (Claritin) 10 mg DAILY PO Last administered on 11/12/18 08:44; Admin Dose 10 MG; Start 11/09/18 at 11:00 Morphine Sulfate (morphine) 1 mg Q1H PRN IV SEVERE PAIN 7-10 Last administered on 11/12/18 14:39; Admin Dose 1 MG; Start 11/09/18 at 17:00 Clonazepam (Klonopin) 1 mg BID PRN PO anxiety Last administered on 11/12/18at 08:50; Admin Dose 1 MG; Start 11/11/18 at 12:00 BALTAZAR BAKER November 12, 2018 16:58
[2018-11-12] MEDS: TAMSULOSIN (SR) 0.4 MG CAP PO SCH (21:34)
[2018-11-12] MEDS: ATORVASTATIN 10 MG TAB PO SCH (21:34)
[2018-11-13] MEDS: morphine 2 MG INJ IV PRN ×3 (02:57→07:28)
[2018-11-13] MEDS: LEVALBUTEROL (NEB) 0.63 MG/3 ML AMP HHN SCH ×2 (08:00)
[2018-11-13] MEDS: SENNA/DOCUSATE NA (8.6MG/50MG) TAB PO SCH (08:41)
[2018-11-13] MEDS: GABAPENTIN 400 MG CAP PO SCH ×2 (08:41→13:04)
[2018-11-13] MEDS: clonAZEPAM 0.5 MG TAB PO PRN (08:41)
[2018-11-13] MEDS: LORATADINE 10 MG TAB PO SCH (08:41)
[2018-11-13] MEDS: MAGNESIUM OXIDE 400 MG TAB PO SCH (08:41)
[2018-11-13] MEDS: CHOLECALCIFEROL 1,000 UNIT TAB PO SCH (08:41)
[2018-11-13] MEDS: GUAIFENESIN LA 600 MG TABSR PO SCH (08:41)
[2018-11-13] MEDS: RISPERIDONE 2 MG TAB PO SCH (08:41)
[2018-11-13] MEDS: DULOXETINE 30 MG CAP DR PO SCH (08:41)
[2018-11-13] MEDS: TOPIRAMATE 25 MG TAB PO SCH (08:41)
[2018-11-13] MEDS: AMLODIPINE 2.5 MG TAB PO SCH (08:42)
--- NOTE | 2018-11-13 08:53 | PN ---
DATE: 11/13/2018 SUBJECTIVE: The patient is stable, no events overnight. OBJECTIVE: VITAL SIGNS: Blood pressure is 131/72, respirations 18, pulse 75, temperature 97.9. HEENT: Head is normocephalic. NECK: Supple. HEART: Regular rate. LUNGS: Show diminished breath sounds at the base. ABDOMEN: Soft, nontender to palpation. No rebound or guarding. EXTREMITIES: Negative for clubbing, cyanosis, no edema. DERMATOLOGIC: No rashes. MUSCULOSKELETAL: No joint effusion. NEUROLOGIC: No change in exam. MEDICATIONS: Reviewed. LABORATORY DATA: Reviewed. ASSESSMENT AND PLAN: 1. Nonoliguric acute kidney injury on top of chronic kidney disease stage IIIB/IV with previous base line creatinine of around 2.5 mg/dL. Etiology of acute kidney injury is secondary to hemodynamics. Renal function has been fluctuating, but overall stable. Continue current treatment plan, supportive care, renally dose all medicines. 2. Hypernatremia, improved. Continue to encourage free water intake. 3. Anemia. Monitor hemoglobin and hematocrit levels. 4. Mineral. Monitor calcium and phosphorus levels. 5. Acute hypoxemic respiratory failure secondary to pneumonia, improving. Continue to monitor. 6. Arrhythmia, bradycardia status post pacemaker placement. Stable. Continue to monitor. 7. Benign prostatic hypertrophy. Continue Flomax. 8. History of schizophrenia, bipolar disorder. Continue medical management. 9. History of hepatitis C. Dictated By: BELLE ART DO NR/NTS Conf#: [id number] DID#: [id number] CC: MARY JO PARRY NP; TESS DAVIS MD; ANIYAH KING MD;*EndCC*
[2018-11-13 09:00] VITALS: BP 142/70; PULSE 64; RESP 19
[2018-11-13] MEDS: ACETAMINOPHEN 325 MG TAB PO PRN (11:37)
--- NOTE | 2018-11-13 11:37 | PDOCDIS ---
Discharge Instructions CONDITION [id number] Patient Condition: Leceu3d Stable FOLLOW UP/APPOINTMENTS Follow-up Plan 1. Please follow-up with Dr. Arana.at your scheduled appointment tomorrow for follow-up with your pacemaker 2. Please follow-up with your mail sorting supervisor as soon as possible, if required please get a referral from [facility] doctor. Otherwise he can see Dr. David Crocker, who was your in-hospital mail sorting supervisor. 3. Please stop the gabapentin until your mail sorting supervisor says that it is okay to continue 4. Please continue other medications 5. Please follow-up with your [facility] doctor as soon as possible. TESS DAVIS November 13, 2018 11:37
--- NOTE | 2018-11-13 11:41 | DS ---
Date/Time of Note Date/Time of Note DATE: 11/13/18 TIME: 11:38 Discharge Summary Admission/Discharge Info Admit Date/Time Oct 27, 2018 at 10:52 Discharge Date/Time Patient Condition: Stable Hospital Course Update(11/13/18) Please see below for more information: Patient was not discharged yesterday due to confusion regarding transfer to SNF versus assisted living facility. Patient needed to see physical therapy and have a thorough conversation with myself before discharge in order to make sure patient understands that he needs to follow-up with cardiology tomorrow for his appointment due to his pacemaker as well as animal skinner as soon as possible. Patient now understands that he needs to follow multiple specialist including nephrology and cardiology as well as his primary care provider and will be given his last dose of antibiotic before he leaves. Patient is doing well and did well with physical therapy, uses front wheel walker at home and also lives with girlfriend who helps him out with 24-hour care. Patient doing well and will be discharged. Previous DC summary Patient is a male with a past medical history significant for CVA, hypertension, dyslipidemia, chronic kidney disease, depression, schizophrenia who originally was transferred from a group home facility because of headache and bradycardia. Patient's headache resolved and bradycardia was ev aluated by cardiology. Patient was eventually deemed a candidate for pacemaker placement due to persistent bradycardia and had pacemaker placed. Patient also was seen by nephrology for his acute on chronic kidney disease and is creatinine level stabilized at around 2.7. Nephrology at this point seems to the patient okay to be discharged to group home facility with recommendations that repeat creatinine be done in a few days as well as nephrology follow-up as soon as possible. Patient will continue on his other medications for his various medical conditions but will also be continued on a oral Levaquin antibiotic which was initially started for his questionable pneumonia. Patient will need 1 more oral dose of Levaquin 750 mg on November 13, 2018 to complete a one-week course. Patient doing well and has no acute respiratory issues. Patient is to continue all other home medications. Patient will also need to follow-up with cardiology as soon as possible for new pacemaker placement. Discharge diagnosis Bradycardia, resolved status post pacemaker placement Acute on chronic kidney disease, resolving Schizophrenia BPH Questionable pneumonia Dyslipidemia Hypertension Anemia Chronic sinusitis Failure to thrive History of CVA Home Meds Reported Medications [Docusate 8.6 Mg] No Conflict Check, 8.6 TAB BID 10/27/18 Cholecalciferol* (Vitamin D3*) 1,000 Unit Tablet, 1000 UNIT PO DAILY, TAB 10/27/18 Amlodipine Besylate* (Amlodipine Besylate*) 2.5 Mg Tablet, 5 MG PO DAILY, #30 TAB 10/27/18 Tamsulosin Hcl* (Flomax*) 0.4 Mg Cap.er.24h, 0.8 MG PO DAILY, CAP 10/27/18 Ropinirole Hcl* (Ropinirole Hcl*) 0.25 Mg Tablet, 0.25 MG PO TID, TAB 10/27/18 Duloxetine Hcl* (Duloxetine Hcl*) 60 Mg Capsule.dr, 120 MG PO DAILY, #30 CAP 10/27/18 Simvastatin* (Zocor*) 20 Mg Tablet, 20 MG PO QHS, #30 TAB 06/02/18 Risperidone* (Risperidone*) 2 Mg Tablet, 2 MG PO BID, TAB 06/02/18 Omeprazole* (Omeprazole*) 20 Mg Capsule.dr, 20 MG PO DAILY, #30 CAP 06/02/18 Clonazepam* (Klonopin*) 1 Mg Tablet, 1 MG PO DAILY PRN for ANXIETY, TAB 2 TABS IN THE MORNING 1 TAB ON LUNCH AND EVENING 2 TABS AT BEDTIME 06/02/18 Discontinued Reported Medications Doxycycline Monohydrate* (Doxycycline Monohydrate*) 100 Mg Tablet, 100 MG PO BID, TAB 10/27/18 Gabapentin* (Gabapentin*) 300 Mg Capsule, 300 MG PO TID, #90 CAP 10/27/18 Discontinued Scripts Metronidazole (Flagyl) 500 Mg Tab, 500 MG PO Q8 for 7 Days, TAB Prov:TESS HALL MD 06/02/18 Levofloxacin* (Levaquin*) 750 Mg Tablet, 750 MG PO DAILY for 7 Days, TAB Prov:TESS HALL MD 06/02/18 Follow-up Plan 1. Please follow-up with Dr. Arana.at your scheduled appointment tomorrow for follow-up with your pacemaker 2. Please follow-up with your animal skinner as soon as possible, if required please get a referral from your [facility] doctor. Otherwise he can see Dr. David Crocker, who was your in-hospital animal skinner. 3. Please stop the gabapentin until your animal skinner says that it is okay to continue 4. Please continue other medications 5. Please follow-up with your [facility] doctor as soon as possible. Primary Care Provider Not On Staff Doctor Time spent on discharge: > 30 minutes Pending Labs Laboratory Tests Test 11/13/18 04:40 White Blood Count 4.8 10^3/ul (4.8-10.8) Red Blood Count 3.75 10^6/ul (4.70-6.10) Hemoglobin 12.1 g/dl (14.0-18.0) Hematocrit 35.3 % (42.0-52.0) Mean Corpuscular Volume 94.1 fl (82.0-101.0) Mean Corpuscular Hemoglobin 32.3 pg (29.0-33.0) Mean Corpuscular Hemoglobin Concent 34.3 g/dl (32.0-37.0) Red Cell Distribution Width 12.0 % (11.5-14.5) Platelet Count 142 10^3/UL (140-415) Mean Platelet Volume 9.8 fl (7.4-10.4) Immature Granulocytes % 0.600 % (0.001-0.429) Neutrophils % 62.5 % (39.0-77.0) Lymphocytes % 23.7 % (15.0-51.0) Monocytes % 8.8 % (0.0-11.0) Eosinophils % 3.6 % (0.0-7.0) Basophils % 0.8 % (0.0-2.0) Nucleated Red Blood Cells % 0.0 /100WBC (0.0-0.0) Immature Granulocytes # 0.030 10^3/ul (0.0-0.031) Neutrophils # 3.0 10^3/ul (1.6-7.5) Lymphocytes # 1.1 10^3/ul (0.8-2.9) Monocytes # 0.4 10^3/ul (0.3-0.9) Eosinophils # 0.2 10^3/ul (0.0-0.5) Basophils # 0.0 10^3/ul (0.0-0.1) Nucleated Red Blood Cells # 0.0 10^3/ul (0.0-0.0) Sodium Level 140 mmol/L (135-144) Potassium Level 4.7 mmol/L (3.5-5.1) Chloride Level 110 mmol/L (97-110) Carbon Dioxide Level 20 mmol/L (21-31) Anion Gap 10 (5-13) Blood Urea Nitrogen 45 mg/dl (7-20) Creatinine 2.63 mg/dl (0.61-1.24) Est Glomerular Filtrat Rate mL/min 24 mL/min (>60) Glucose Level 90 mg/dl (70-220) Calcium Level 9.0 mg/dl (8.4-10.2) Phosphorus Level 5.7 mg/dl (2.5-4.9) Magnesium Level 2.5 mg/dl (1.7-2.5) TESS DAVIS November 13, 2018 11:41
--- NOTE | 2018-11-13 11:42 | PN ---
Date/Time of Note Date/Time of Note DATE: 11/13/18 TIME: 11:41 Objective Vitals Vital Signs Date Temp Pulse Resp B/P (MAP) Pulse Ox O2 O2 Flow FiO2 Time Delivery Rate 11/13/18 97.9 64 19 142/70 96 09:00 (94) 11/13/18 21 02:06 11/11/18 Room Air 15:20 11/11/18 2.0 07:45 Intake and Output 11/12/18 11/12/18 11/13/18 1414:59 22:59 06:59 IntakeIntake Total 650 ml 250 ml OutputOutput Total 3500 ml 2000 ml BalanceBalance -2850 ml -1750 ml Results Result Diagram: 11/13/18 0440 11/13/18 0440 Medications Medications Current Medications IV Flush (NS 3 ml) 3 ml PER PROTOCOL IV ; Start 10/27/18 at 00:00 Ondansetron HCl (Zofran Tab) 4 mg Q6H PRN PO NAUSEA/VOMITING; Start 10/27/18 at 00:00 Acetaminophen (Tylenol Tab) 650 mg Q6H PRN PO .PAIN 1-3 OR TEMP Last administered on 11/12/18 23:10; Admin Dose 650 MG; Start 10/27/18 at 00:00 Docusate Sodium (Colace) 100 mg Q12H PRN PO .CONSTIPATION Last administered on 11/06/18 05:39; Admin Dose 100 MG; Start 10/27/18 at 00:00 Bisacodyl (Dulcolax) 5 mg DAILY PRN PO .CONSTIPATION Last administered on 11/06/18 05:39; Admin Dose 5 MG; Start 10/27/18 at 00:00 Tramadol HCl (Ultram) 50 mg Q6H PRN PO MODERATE PAIN LEVEL 4-6 Last administered on 11/11/18 20:22; Admin Dose 50 MG; Start 10/27/18 at 03:30 Hydralazine HCl (Apresoline) 10 mg Q4H PRN IV HYPERTENSION Last administered on 11/10/18 05:49; Admin Dose 10 MG; Start 10/27/18 at 05:00 Amlodipine Besylate (Norvasc) 5 mg DAILY PO Last administered on 11/13/18 08:42; Admin Dose 5 MG; Start 10/27/18 at 09:00 Cholecalciferol (Vitamin D) 1,000 unit DAILY PO Last administered on 11/13/18 08:41; Admin Dose 1,000 UNIT; Start 10/27/18 at 09:00 Duloxetine HCl (Cymbalta) 120 mg DAILY PO Last administered on 11/13/18 08:41; Admin Dose 120 MG; Start 10/27/18 at 09:00 Risperidone (Risperdal) 2 mg BID PO Last administered on 11/13/18 08:41; Admin Dose 2 MG; Start 10/27/18 at 09:00 Atorvastatin Calcium (Lipitor) 10 mg DAILY@21 PO Last administered on 11/12/18 21:34; Admin Dose 10 MG; Start 10/27/18 at 21:00 Senna/Docusate Sodium (Senokot-S) 1 tab BID PO Last administered on 11/13/18 08:41; Admin Dose 1 TAB; Start 10/27/18 at 21:00 Gabapentin (Neurontin) 400 mg TID PO Last administered on 11/13/18 08:41; Admin Dose 400 MG; Start 10/27/18 at 13:00 Topiramate (Topamax) 25 mg BID PO Last administered on 11/13/18 08:41; Admin Dose 25 MG; Start 10/28/18 at 11:00 Guaifenesin (Mucinex) 600 mg BID PO Last administered on 11/13/18 08:41; Admin Dose 600 MG; Start 10/28/18 at 14:00 Tamsulosin HCl (Flomax) 0.4 mg HS PO Last administered on 11/12/18 21:34; Admin Dose 0.4 MG; Start 10/29/18 at 21:00 Levalbuterol (Xopenex Neb) 1.25 mg Q3H RESP THERAPY PRN HHN Shortness of breath; Start 10/30/18 at 23:30 Ipratropium [place] (Atrovent 0.02% (Neb)) 0.5 mg Q3H RESP THERAPY PRN HHN SHORTNESS OF BREATH Last administered on 11/02/18 01:00; Admin Dose 0.5 MG; Start 10/30/18 at 23:30 Levalbuterol (Xopenex Neb) 0.63 mg Q8H RESP THERAPY HHN Last administered on 11/08/18 16:09; Admin Dose 0.63 MG; Start 10/31/18 at 16:00 Levofloxacin (Levaquin) 750 mg Q48H PO Last administered on 11/11/18 16:38; Admin Dose 750 MG; Start 11/07/18 at 16:00 Loratadine (Claritin) 10 mg DAILY PO Last administered on 11/13/18 08:41; Admin Dose 10 MG; Start 11/09/18 at 11:00 Morphine Sulfate (morphine) 1 mg Q1H PRN IV SEVERE PAIN 7-10 Last administered on 11/13/18 07:28; Admin Dose 1 MG; Start 11/09/18 at 17:00 Clonazepam (Klonopin) 1 mg BID PRN PO anxiety Last administered on 11/13/18 08:41; Admin Dose 1 MG; Start 11/11/18 at 12:00 VTE Prophylaxis Risk [place] [facility] [place] risk: 5 SCD applied [place] [facility] [place] Yes Lines/Catheters IV Catheter Type: Chambers in Place: No Assessment/Plan Hospital Course Subjective Patient doing well, no complaints Objective Physical exam General: Patient is laying in bed and answers questions appropriately Mentation: Patient is alert and oriented 4, Head: Normocephalic atraumatic Eyes: EOMI, pupils reactive to light Neck: Supple, nontender, midline Respiratory: Clear to auscultation bilaterally Cardiovascular: regular rate, no obvious murmurs Gastrointestinal: non-tender to palpation, bowel sounds heard. Neurological: Moves all extremities spontaneously, mildly weak Skin: Pacemaker site, clean, bandaged ASSESSMENT & PLAN 68-year-old male with comorbidities including CVA, hypertension, hyperlipidemia, CKD, depression, and schizophrenia who was transferred from a residential facility because of complaint of headache and bradycardia. 1. Bradycardia. Resolving -Status post evaluation by cardiology. -Bradycardia secondary to hypomagnesemia. -Resolved with magnesium repletion. -Started having bradycardia again on 11/08/2018. -Status post reevaluation by cardiology on 11/08/2018 and recommended a pacemaker. -Pacemaker placement done on November 09, 2018, doing well status post pacemaker placement 2. Acute on chronic kidney disease. -Being followed by nephrology. -Use nephrotoxic drugs with caution. 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 3. Schizophrenia. -Continue mood stabilizers. 4. Prostate hypertrophy. -Continue Flomax. 5. Patchy bilateral pulmonary infiltrates. -Continue treatment for healthcare associated pneumonia. -Switched to oral on 11/07/2018. Last dose today, will be given before discharge 6. Dyslipidemia. -Continue statins. 7. Hypertension. -Continue antihypertensives. 8. Normocytic, normochromic anemia. -Unknown etiology. -Continue to monitor H&H. 9. Chronic sinusitis. -Stable. 10. Failure to thrive. -PT evaluation. 11. Fluids, electrolytes, and nutrition. -Renal diet. 12. DVT prophylaxis -Subcutaneous heparin. 13. Plan. -DC to assisted living today TESS DAVIS November 13, 2018 11:42
[2018-11-13] MEDS ORDERED: ALBU8.5H8 INH (11:45)
[2018-11-13] MEDS: LEVOFLOXACIN 750 MG TABLET PO SCH (13:04)
[2018-11-13] MEDS: traMADol 50 MG TAB PO PRN (13:05)
--- NOTE | 2018-11-14 10:10 | RADRPT ---
Vent Rate: 42 bpm RR Interval: 1424 msec MA Interval: 161 msec QRS Duration: 102 msec QT Interval: 490 msec QTC Interval: 411 msec P-R-T [place]: 80 - 75 - 93 degrees Marked Sinus bradycardia...rate< 50 Ventricular premature complex...V complex w/ short R-R interval Low voltage, extremity leads...all extremity leads <0.5mV Abnrm T, consider ischemia, anterolateral lds...T <-0.20mV, I aVL V2-V6 Electronically Signed By: Rob Medina
== END 2018-11-13 14:14 | disposition home or self-care (01) | DRG 242 ==
LOC: E/R 21:34 → 6WM 23:55 → OBSVTOIN 10-27 10:52 → MS1 10-27 23:15 → TEL 10-30 21:55 → PP2 11-05 18:58 → TEL 11-08 12:00 → MS1 11-12 22:56
PROVIDERS: ADMIT Family Medicine; ATTEND Internal Medicine
PROC: 02HK3JZ Insertion of Pacemaker Lead into Right Ventricle, Percutaneous Approach (ICD-10-PCS; 2018-11-09)
PROC: 02H63JZ Insertion of Pacemaker Lead into Right Atrium, Percutaneous Approach (ICD-10-PCS; 2018-11-09)
PROC: 0JH606Z Insertion of Pacemaker, Dual Chamber into Chest Subcutaneous Tissue and Fascia, Open Approach (ICD-10-PCS; principal; 2018-11-09 15:30)
DX: R00.1 Bradycardia, unspecified (principal); J69.0 Pneumonitis due to inhalation of food and vomit; J96.01 Acute respiratory failure with hypoxia; D61.818 Other pancytopenia; N17.9 Acute kidney failure, unspecified; N18.4 Chronic kidney disease, stage 4 (severe); B18.2 Chronic viral hepatitis C; E83.42 Hypomagnesemia; E78.5 Hyperlipidemia, unspecified; F25.0 Schizoaffective disorder, bipolar type; F43.10 Post-traumatic stress disorder, unspecified; F41.1 Generalized anxiety disorder; F17.200 Nicotine dependence, unspecified, uncomplicated; I12.9 Hypertensive chronic kidney disease with stage 1 through stage 4 chronic kidney disease, or unspecified chronic kidney disease; J32.9 Chronic sinusitis, unspecified; N40.0 Benign prostatic hyperplasia without lower urinary tract symptoms; R51 Headache; R53.81 Other malaise; R62.7 Adult failure to thrive; Z91.19 Patient's noncompliance with other medical treatment and regimen; Z86.73 Personal history of transient ischemic attack (TIA), and cerebral infarction without residual deficits; Z68.26 Body mass index [BMI] 26.0-26.9, adult
CPT/HCPCS: 36415; 36600; 70450; 70553; 71045; 76775; 80048; 80053; 80061; 80202; 80307; 81001; 81003; 82306; 82550; 82553; 82803; 83036; 83735; 84100; 84145; 84153; 84154; 84155; 84300; 84439; 84443; 84484; 85025; 85610; 85730; 87086; 92526; 92610; 93005; 93306; 94640; 94664; 96374; 96375; 97110; 97161; 97164; 97530; G0378; J0131; J0360; J0690; J0692; J1170; J1630; J1644; J2060; J2250; J2270; J2405; J3010; J3370; J3475; J7030; J7040; J7070; Q9967

== ENCOUNTER 2018-12-26 22:05 | Emergency (ER) | payer MEDICARE, OTHER ==
[~2018-12-26] VITALS: Ht 180.3 cm; Wt 60.0 kg
[~2018-12-26 22:05] MED LIST changes: +ALBU8.5H8 INH; +AMLO2.5T78 PO; +CHOL100062 PO; +DOCUSATE; +DULO60CA59 PO; -LEVO750T25 PO; -METR-121 PO; +ROPI0.253 PO; +TAMS-14 PO
[2018-12-26 23:24] VITALS: Ht 180.3 cm; Wt 60.0 kg
[2018-12-26] MEDS ORDERED: ALBUTEROL 0.083% (NEB) 2.5 MG/3 ML AMP HHN STA (23:24)
[2018-12-26] MEDS ORDERED: IPRATROPIUM (NEB) 0.5 MG/2.5 ML AMP INH ONE (23:30)
[2018-12-27] MEDS ORDERED: LORAZEPAM 2 MG INJ IV ONE (02:30)
[2018-12-27] MEDS ORDERED: morphine 4 MG/ML VIAL ONE (03:07)
[2018-12-27] MEDS ORDERED: morphine 4 MG/ML VIAL IV ONE (03:12)
[2018-12-27] MEDS ORDERED: LYR75 PO (03:53)
[2018-12-27 04:51] VITALS: BP 112/68; PULSE 78; RESP 18
--- NOTE | 2019-01-17 02:55 | ERD ---
ER Documentation Chief Complaint Chief Complaint MULTIPLE COMPLAINTS HPI This 68-year-old male brought in from [place] with planes of cough shortness of breath. Patient has history of COPD. No nausea no vomiting no chills. No other current complaints. Denies chest pain. ROS All systems reviewed and are negative except as per history of present illness. Medications Home Meds Active Scripts Albuterol Sulfate* (Proair HFA*) 8.5 Gm Hfa.aer.ad, 1 PUFF INH Q6H PRN for WHEEZING AND SOB, #1 INHALER Prov:TESS DAVIS 11/13/18 Reported Medications Pregabalin* (Lyrica*) 75 Mg Capsule, 75 MG PO BID for 30 Days, #60 12/27/18 [Docusate 8.6 Mg] No Conflict Check, 8.6 TAB BID 10/27/18 Tamsulosin Hcl* (Flomax*) 0.4 Mg Cap.er.24h, 0.8 MG PO DAILY, CAP 10/27/18 Ropinirole Hcl* (Ropinirole Hcl*) 0.25 Mg Tablet, 0.25 MG PO TID, TAB 10/27/18 Duloxetine Hcl* (Duloxetine Hcl*) 60 Mg Capsule.dr, 120 MG PO DAILY, #30 CAP 10/27/18 Simvastatin* (Zocor*) 20 Mg Tablet, 20 MG PO QHS, #30 TAB 06/02/18 Risperidone* (Risperidone*) 2 Mg Tablet, 2 MG PO BID, TAB 06/02/18 Omeprazole* (Omeprazole*) 20 Mg Capsule.dr, 20 MG PO DAILY, #30 CAP 06/02/18 Clonazepam* (Klonopin*) 1 Mg Tablet, 1 MG PO DAILY PRN for ANXIETY, TAB 2 TABS IN THE MORNING 1 TAB ON LUNCH AND EVENING 2 TABS AT BEDTIME 06/02/18 Allergies Allergies: Coded Allergies: No Known Allergies (Verified Allergy, Unknown, 06/02/18) PMhx/Soc History of Surgery: Yes (SPINAL FUSION, HIP AND L-S SURGERY, CHOLECYSTECTOMY) Anesthesia Reaction: No Hx Neurological Disorder: Yes (NEUROPATHY) Hx Cardiac Disorders: Yes (HTN,CAD, AR, HYPERLIPIDEMIA) Hx Psychiatric Problems: Yes (ANXIETY, DEPRESSION, PTSD) Hx Miscellaneous Medical Probl: Yes (anxiety, h/o CVA, HTN, hyperlipidemia, CKD, depression, PTSD, neuropathy, s) Hx Alcohol Use: No Hx Substance Use: No Hx Tobacco Use: No Smoking Status: Never smoker Physical Exam Physical Exam Const: No acute distress Head: Atraumatic Eyes: Normal Conjunctiva ENT: Normal External Ears, Nose and Mouth. Neck: Full range of motion. No meningismus. Resp: Clear to auscultation bilaterally Cardio: Regular rate and rhythm, no murmurs Abd: Soft, non tender, non distended. Normal bowel sounds Skin: No petechiae or rashes Back: No midline or flank tenderness Ext: No cyanosis, or edema Neur: Awake and alert Psych: Normal Mood and Affect Results 24 hrs Laboratory Tests Test 12/26/18 02:00 12/27/18 00:40 12/27/18 02:00 White Blood Count 4.6 10^3/ul Red Blood Count 3.50 10^6/ul Hemoglobin 11.1 g/dl Hematocrit 33.4 % Mean Corpuscular Volume 95.4 fl Mean Corpuscular Hemoglobin 31.7 pg Mean Corpuscular 33.2 g/dl Hemoglobin Concent Red Cell Distribution Width 12.6 % Platelet Count 80 10^3/UL Mean Platelet Volume 10.4 fl Immature Granulocytes % 0.200 % Neutrophils % 67.8 % Lymphocytes % 20.7 % Monocytes % 7.8 % Eosinophils % 3.1 % Basophils % 0.4 % Nucleated Red Blood Cells % 0.0 /100WBC Immature Granulocytes # 0.010 10^3/ul Neutrophils # 3.1 10^3/ul Lymphocytes # 1.0 10^3/ul Monocytes # 0.4 10^3/ul Eosinophils # 0.1 10^3/ul Basophils # 0.0 10^3/ul Nucleated Red Blood Cells # 0.0 10^3/ul Sodium Level 148 mmol/L Potassium Level 4.0 mmol/L Chloride Level 111 mmol/L Carbon Dioxide Level 24 mmol/L Anion Gap 13 Blood Urea Nitrogen 24 mg/dl Creatinine 2.40 mg/dl Est Glomerular Filtrat Rate mL/min 27 mL/min Glucose Level 122 mg/dl Calcium Level 8.7 mg/dl Total Bilirubin 0.6 mg/dl Direct Bilirubin 0.00 mg/dl Indirect Bilirubin 0.6 mg/dl Aspartate Amino Transf (AST/SGOT) 18 IU/L Alanine 12 IU/L Aminotransferase (ALT/SGPT) Alkaline Phosphatase 60 IU/L Troponin I < 0.012 ng/ml B-Type Natriuretic Peptide 409 PG/ML Total Protein 7.0 g/dl Albumin 3.5 g/dl Globulin 3.50 g/dl Albumin/Globulin Ratio 1.00 POC Venous Lactate 0.6 mmol/L Lactic Acid Level 1.9 mmol/L Current Medications Medications Dose Sig/Florencio Start Time Status Last (Trade) Ordered Route PRN Stop Time Admin Dose Reason Admin Albuterol 5 mg ONCE STAT 12/26/18 DC 12/26/18 (Proventil HHN 23:24 23:47 0.083% (Neb)) 12/26/18 23:25 Ipratropium 0.5 mg ONCE ONCE 12/26/18 DC 12/26/18 [place] [facility] 23:30 23:47 (Atrovent 12/26/18 23:31 0.02% (Neb)) Lorazepam 1 mg ONCE ONCE 12/27/18 DC 12/27/18 (Ativan) IV 02:30 02:30 12/27/18 02:31 Morphine 4 mg ONCE ONCE 12/27/18 DC 12/27/18 Sulfate IV 03:12 03:18 (morphine) 12/27/18 03:13 Morphine 4 mg STK-MED 12/27/18 DC Sulfate ONCE .ROUTE 03:07 (morphine) 12/27/18 03:08 Procedures/MDM EKG: Rate/Rhythm: [Normal Sinus Rhythm] QRS, ST, T-waves: [No changes consistent w/ acute ischemia] Impression: [No evidence of ischemia or arrhythmia] Chest X-ray 1V Interpreted by me: Soft Tissue: No acute abnormalities Bones: No acute abnormalities Mediastinum/Cardiac Silhouette/Lungs: [No acute abnormalities] Patient's respiratory status has stabilized while in the department and is appropriate for outpatient work up. Exam and work up not consistent w/ impending respiratory failure or cardiovascular collapse. Departure Diagnosis: Primary Impression: Multiple complaints Condition: Stable Patient Instructions: Normal Exam, (Child) (Adult) JOÃO ZAPATA Jan 17, 2019 02:55
== END 2018-12-27 06:39 | disposition home or self-care (01) ==
LOC: E/R 22:05
DX: J44.1 Chronic obstructive pulmonary disease with (acute) exacerbation (principal); I25.2 Old myocardial infarction; I25.10 Atherosclerotic heart disease of native coronary artery without angina pectoris; I12.9 Hypertensive chronic kidney disease with stage 1 through stage 4 chronic kidney disease, or unspecified chronic kidney disease; N18.9 Chronic kidney disease, unspecified; Z86.73 Personal history of transient ischemic attack (TIA), and cerebral infarction without residual deficits
CPT/HCPCS: 36415; 71045; 80053; 83605; 83880; 84484; 85025; 87040; 93005; 94664; 96374; 96375; 99285; J2060; J2270

== ENCOUNTER 2019-01-26 19:53 | Emergency (ER) | payer MEDICARE, OTHER ==
[~2019-01-26] VITALS: Ht 177.8 cm; Wt 84.0 kg
[~2019-01-26 19:53] MED LIST changes: -AMLO2.5T78 PO; -CHOL100062 PO; +LYR75 PO
[2019-01-26 20:01] VITALS: Ht 177.8 cm; Wt 84.0 kg
--- NOTE | 2019-01-26 20:20 | ERD ---
ER Documentation Chief Complaint Chief Complaint weakness, SOB, Rt shoulder pain, pacemaker inserted 2 mo ago. HPI This is a 68-year-old man with multiple medical conditions complaining of right shoulder pain and generalized weakness. He had a pacemaker placed 2 months ago. had no fevers or chills, no redness or swelling to the shoulder or chest, no fevers or chills, no complaints of headache or blurry vision. Patient has a long history of depression but denies suicidal homicidal ideation. ROS All systems reviewed and are negative except as per history of present illness. Medications Home Meds Active Scripts Naproxen* (Naprosyn*) 500 Mg Tablet, 500 MG PO BID PRN for PAIN AND/OR INFLAMMATION, #30 TAB Prov:TESS BHAT MD 01/26/19 Albuterol Sulfate* (Proair HFA*) 8.5 Gm Hfa.aer.ad, 1 PUFF INH Q6H PRN for WHEEZING AND SOB, #1 INHALER Prov:TESS DAVIS 11/13/18 Reported Medications Pregabalin* (Lyrica*) 75 Mg Capsule, 75 MG PO BID for 30 Days, #60 12/27/18 [Docusate 8.6 Mg] No Conflict Check, 8.6 TAB BID 10/27/18 Tamsulosin Hcl* (Flomax*) 0.4 Mg Cap.er.24h, 0.8 MG PO DAILY, CAP 10/27/18 Ropinirole Hcl* (Ropinirole Hcl*) 0.25 Mg Tablet, 0.25 MG PO TID, TAB 10/27/18 Duloxetine Hcl* (Duloxetine Hcl*) 60 Mg Capsule.dr, 120 MG PO DAILY, #30 CAP 10/27/18 Simvastatin* (Zocor*) 20 Mg Tablet, 20 MG PO QHS, #30 TAB 06/02/18 Risperidone* (Risperidone*) 2 Mg Tablet, 2 MG PO BID, TAB 06/02/18 Omeprazole* (Omeprazole*) 20 Mg Capsule.dr, 20 MG PO DAILY, #30 CAP 06/02/18 Clonazepam* (Klonopin*) 1 Mg Tablet, 1 MG PO DAILY PRN for ANXIETY, TAB 2 TABS IN THE MORNING 1 TAB ON LUNCH AND EVENING 2 TABS AT BEDTIME 06/02/18 Allergies Allergies: Coded Allergies: No Known Allergies (Verified Allergy, Unknown, 06/02/18) PMhx/Soc CVA, hypertension, dyslipidemia, chronic kidney disease, depression, schizophrenia, anxiety, permanent pacemaker, COPD History of Surgery: Yes (SPINAL FUSION, HIP AND L-S SURGERY, CHOLECYSTECTOMY) Anesthesia Reaction: No Hx Neurological Disorder: Yes (NEUROPATHY) Hx Cardiac Disorders: Yes (HTN,CAD, ND, HYPERLIPIDEMIA) Hx Psychiatric Problems: Yes (ANXIETY, DEPRESSION, PTSD) Hx Miscellaneous Medical Probl: Yes (anxiety, h/o CVA, HTN, hyperlipidemia, CKD, depression, PTSD, neuropathy, s) Hx Alcohol Use: No Hx Substance Use: No Hx Tobacco Use: No Smoking Status: Never smoker FmHx Family History: No diabetes Physical Exam Vitals Vital Signs Date Temp Pulse Resp B/P (MAP) Pulse Ox O2 O2 Flow FiO2 Time Delivery Rate 01/26/19 75 14 140/78 97 Nasal 23:19 (98) Cannula 01/26/19 4.0 21:14 01/26/19 72 24 99 Nasal 4.0 20:57 Cannula 01/26/19 Nasal 4 20:40 Cannula 01/26/19 87 30 163/88 95 Nasal 20:09 (113) Cannula 01/26/19 97.7 97 28 163/88 93 20:01 (113) 01/26/19 Nasal 2.0 19:55 Cannula Physical Exam GENERAL: Well-developed, well-nourished, well-hydrated, in no apparent distress, looks nontoxic in appearance HEENT: Moist mucous membranes, pink conjunctiva, no cervical spine tenderness or step-off deformities, no goiter, no jaundice or icterus, extraocular movements intact without pain. No submandibular induration, and no pharyngeal erythema NEURO: Alert and oriented 3, cranial nerves II through XII intact bilaterally, pupils equal round reactive to light, no focal deficits or facial asymmetry, sensation intact distally Strength 5/5 in upper and lower extremities bilaterally CARDIAC: Regular rate and rhythm, no murmurs rubs or gallops LUNGS: Clear bilaterally no wheezing crackles or stridor ABDOMEN: Soft nontender, no guarding, no rigidity, no rebound, no psoas sign no obturator sign. Normoactive bowel sounds SKIN: Warm and dry to touch, no abrasions, contusions, or hematomas, no l acerations, no ecchymosis, no target lesions, and without ulcers EXTREMITIES: No clubbing cyanosis or edema, calves are bilaterally symmetrical, no Homans sign, no popliteal cord sign. Distal pulses equal and bilateral PSYCH: Normal affect without agitation or irritability Result Diagram: 01/26/19203401/26/192034 Results 24 hrs Laboratory Tests Test 01/26/19 20:24 01/26/19 20:35 Blood Gas Specimen Source Blood arterial Arterial Blood Date Drawn 01/26/2019 8:42:28 PM Arterial Blood pH (Temp corrected) 7.313 Arterial Blood pCO2 (Temp correct) 37.5 mmhg Arterial Blood pO2 (Temp corrected) 82.4 mmHG Arterial Blood HCO3 18.6 mmol/L Arterial Blood Base Excess -7.0 mmol/L Arterial Blood Oxygen Saturation 95.0 mmHG Rohit Test N/A Arterial Blood Gas Puncture Site Right Brachial Arterial Blood Carboxyhemoglobin 0.3 % Arterial Blood Methemoglobin 0 % Blood Gas A-a O2 Differential 109.1 mmHg Oxyhemoglobin Percent 94.7 % Blood Gas Temperature 37.0 C Blood Gas Modality NASAL CANNULA FiO2 33.0 % Blood Gas Notified Whom MR Blood Gas Notified Time 01/26/2019 8:48:34 PM White Blood Count 4.6 10^3/ul Red Blood Count 3.77 10^6/ul Hemoglobin 12.0 g/dl Hematocrit 35.1 % Mean Corpuscular Volume 93.1 fl Mean Corpuscular Hemoglobin 31.8 pg Mean Corpuscular Hemoglobin Concent 34.2 g/dl Red Cell Distribution Width 12.7 % Platelet Count 78 10^3/UL Mean Platelet Volume 9.7 fl Immature Granulocytes % 0.400 % Neutrophils % 72.4 % Lymphocytes % 17.3 % Monocytes % 6.9 % Eosinophils % 2.6 % Basophils % 0.4 % Nucleated Red Blood Cells % 0.0 /100WBC Immature Granulocytes # 0.020 10^3/ul Neutrophils # 3.4 10^3/ul Lymphocytes # 0.8 10^3/ul Monocytes # 0.3 10^3/ul Eosinophils # 0.1 10^3/ul Basophils # 0.0 10^3/ul Nucleated Red Blood Cells # 0.0 10^3/ul Sodium Level 144 mmol/L Potassium Level 3.9 mmol/L Chloride Level 111 mmol/L Carbon Dioxide Level 22 mmol/L Anion Gap 11 Blood Urea Nitrogen 34 mg/dl Creatinine 2.57 mg/dl Est Glomerular Filtrat Rate mL/min 25 mL/min Glucose Level 185 mg/dl Calcium Level 8.7 mg/dl Total Bilirubin 1.0 mg/dl Direct Bilirubin 0.00 mg/dl Indirect Bilirubin 1.0 mg/dl Aspartate Amino Transf (AST/SGOT) 18 IU/L Alanine Aminotransferase (ALT/SGPT) 20 IU/L Alkaline Phosphatase 60 IU/L Troponin I < 0.012 ng/ml B-Type Natriuretic Peptide 368 PG/ML Total Protein 7.1 g/dl Albumin 3.7 g/dl Globulin 3.40 g/dl Albumin/Globulin Ratio 1.08 Lipase 44 U/L Current Medications Medications Dose Sig/Florencio Start Time Status Last (Trade) Ordered Route PRN Stop Time Admin Dose Reason Admin Sodium 500 ml @ Q1H STAT 01/26/19 DC 01/26/19 Chloride 500 mls/hr IV 20:24 20:53 01/26/19 21:23 Albuterol 10 mg ONCE STAT 01/26/19 DC 01/26/19 (Proventil INH 20:24 20:56 0.5% (Neb)) 01/26/19 20:25 Ipratropium 1 mg ONCE STAT 01/26/19 DC 01/26/19 [place] INH 20:24 20:56 (Atrovent 01/26/19 20:25 0.02% (Neb)) 125 mg ONCE STAT 01/26/19 DC 01/26/19 Methylprednis IV 20:24 20:53 olone Sodium 01/26/19 20:25 Succinate (Solu-Medrol) Ketorolac 15 mg ONCE STAT 01/26/19 DC 01/26/19 Tromethamine IV 20:25 20:54 (Toradol) 01/26/19 20:27 Oxycodone/ 1 tab ONCE ONCE 01/26/19 DC 01/26/19 Acetaminophen PO 22:00 21:46 (Percocet 01/26/19 22:01 (5/ 325)) Procedures/MDM IV line was established patient was placed on athletic monitor rhythm strip revealed a sinus rhythm at about 80 bpm with upright P and T waves. Patient was afebrile EKG performed, read by me revealed a normal sinus rhythm at 81 bpm, normal axis, narrow QRS complex, no concerning ST elevations or depressions noted ABG on low-flow oxygen revealed a pH of 7.31, PCO2 38, PO2 80 revealing mild metabolic acidosis I administered 500 cc normal saline IV, albuterol 10 mg via nebulizer, ipratropium 1 mg via nebulizer, and Toradol 15 mg IV, and methylprednisolone 125 mg IV x1. For continued shoulder pain I administered Percocet 1 tablet p.o. Chest x-ray performed, read by me reveals a pacemaker in the left chest, mild congestion bilaterally, no acute infiltrates, no pneumothorax X-ray right shoulder 3V Interpreted by me: Bones: No fracture Joints: No dislocation Foreign body: None CBC and electrolytes are normal, liver function tests were normal, troponin was negative Differential diagnoses considered, included but not limited to acute coronary syndrome, pulmonary embolism, aortic dissection, abdominal aortic aneurysm, sepsis, stroke, meningitis, encephalitis, pneumonia, appendicitis, cholecystitis, bowel obstruction, pyelonephritis, nephrolithiasis, cystitis, as well as metabolic, hematologic, and electrolyte abnormalities. As well as abscess, cellulitis, fractures, and dislocations. Patient feels much better at this time, and vital signs are normal, symptoms have improved. I did give strict instructions to return to the ED if symptoms continue or worsen, patient will otherwise follow-up with primary care physician. Patient understood instructions and agreed to plan. Disclaimer: Inadvertent spelling and grammatical errors are likely due to EHR/dictation software use and do not reflect on the overall quality of patient care. Also, please note that the electronic time recorded on this note does not necessarily reflect the actual time of the patient encounter. Departure Diagnosis: Primary Impression: COPD (chronic obstructive pulmonary disease) COPD type: chronic bronchitis Chronic bronchitis type: simple Qualified Codes: J41.0 - Simple chronic bronchitis Additional Impressions: Weakness Shoulder pain Chronicity: acute Laterality: right Qualified Codes: M25.511 - Pain in right shoulder Condition: Good TESS BHAT MD Jan 26, 2019 20:20
[2019-01-26] MEDS ORDERED: METHYLPREDNISOLONE 125 MG INJ IV STA (20:24)
[2019-01-26] MEDS ORDERED: ALBUTEROL 0.5% (NEB) 2.5 MG/0.5 ML AMP INH STA (20:24)
[2019-01-26] MEDS ORDERED: IPRATROPIUM (NEB) 0.5 MG/2.5 ML AMP INH STA (20:24)
[2019-01-26] MEDS ORDERED: SOD CHLORIDE 0.9% 500 ML IV STA (20:24)
[2019-01-26] MEDS ORDERED: KETOROLAC 15 MG INJ IV STA (20:25)
[2019-01-26] MEDS ORDERED: OXYCODONE/ACETAMINOPHEN (5/325) TAB PO ONE (22:00)
[2019-01-26] MEDS ORDERED: NAPR-985 PO (22:16)
[2019-01-26 23:19] VITALS: BP 140/78; PULSE 75; RESP 14
== END 2019-01-26 23:50 | disposition short-term general hospital (02) ==
LOC: E/R 19:53
DX: J41.0 Simple chronic bronchitis (principal); I12.9 Hypertensive chronic kidney disease with stage 1 through stage 4 chronic kidney disease, or unspecified chronic kidney disease; N18.9 Chronic kidney disease, unspecified; I25.2 Old myocardial infarction; M25.511 Pain in right shoulder; R53.1 Weakness; Z86.73 Personal history of transient ischemic attack (TIA), and cerebral infarction without residual deficits; Z95.0 Presence of cardiac pacemaker
CPT/HCPCS: 36415; 36600; 71045; 73030; 80053; 82803; 83690; 83880; 84484; 85025; 93005; 94644; 96361; 96374; 96375; 99285; J1885; J2930; J7040